=== PATIENT | male | born 1960 | race Caucasian/White ===

== ENCOUNTER → 2018-04-08 14:15 | Outpatient (CLI) | payer MEDICARE, MEDICAID, SELFPAY ==
--- NOTE | 2018-04-08 | OV.WND_ITS ---
Progress Note Details Patient Name: Xiang Barton Patient Number: [id number] PatientPatientDate: 04/08/2018 Clinician: Janeen Rico Clinician Cosigner: Lacie Márquez Physician / Figure Refinisher And Repairer: Pawel Schofield SUBJECTIVE Chief Complaint This information was obtained from the patient Ulcers on bilateral medial thighs. Allergies clindamycin (Severity: Mild, Reaction: bloating/loss of appetite) HPI This information was obtained from the patient 04/08/18. Seen by Dr. Schofield. The patient returns to our clinic with bilateral medial, proximal thigh pressure ulcers that he states have been present for about a week and were caused by compression wraps that were applied to treat his severe bilateral lymphedema. He 's not on antibiotics currently and he reports some pain at the ulcer sites. He also has diabetes which is historically well controlled and the ulcers are complicated by morbid obesity and his dependence upon a wheelchair since having a stroke many years ago. 05/15/[address] Schofield. The patient does not report drainage from the previously described right lower leg non-healing trauma wound. He also states he's only applying his Juxta-Lites every other day. 04/23/15 Seen by Lars Stevenson PA-C. The patient notes no drainage in his SNAP canister or tube. 04/16/15 Seen by Lars Stevenson PA-C. The patient reports drainage in the SNAP tube but not in the canister. Denies pain or changes in his lymphedema. 04/04/[address] Schofield. The patient reports increased drainage from the right lower leg non-healing trauma wound over the past few days. He does not report erythema, pain, or swelling. 03/26/[address] Schofield. The patient states there's been no drainage from the right lower leg wound since last week. 03/12/15 Seen by Lars Stevenson PA-C. The patient notes minimal drainage from his right leg wound. 03/05/15 Seen by Lars Stevenson PA-C. The patient has had no difficulty with his SNAP or wraps. 02/26/15 Seen by Lars Stevenson PA-C. The patient reports no fever or chills and little to no wound pain. 02/09/15 Seen by Lars Stevenson PA-C. The patient does not report fever, chills or increased wound pain or drainage. 02/13/15 Seen by Lars Stevenson PA-C today. The patient has been taking his clindamycin and has had not difficulty with his SNAP dressing or leg wrap. He does not report fever or chills. 02/09/15 Seen by Lars Stevenson PA-C. The patient does not report fever or chills, but is running a temp of 99.4 today in clinic. He has been off of his Clindamycin now for a few days. He does not report increased wound pain and he tolerated the SNAP well. 01/30/15 Seen by Lars Stevenson PA-C. The patient reports no fever, chills or increased wound pain or drainage. 01/25/15 The patient does not report pain or increased drainage associated with his right lower leg wound and he continues on clindamycin and Bactrim. He does not report fever or chills and tolerated the SNAP wound vac without difficulty. 01/22/15 The patient does not report pain or drainage associated with the right lower leg wound. He continues on clindamycin and does not report any adverse side effects. 01/11/15 The patient does not report increased drainage nor pain associated with the right lower leg wound. He continues taking azithromycin. 01/09/15 The patient does not report pain or increased drainage from the right lower leg wound and he started azithromycin this morning based on the very resistant coag negative Staph that was cultured from his wound at the last visit. He states his blood sugars remain well controlled and he's have no fever or constitutional symptoms. 01/04/15 The patient complains of some persistent pain along the right lower leg traumatic wound site but does not report significant drainage, fever, or chills. His injury occurred about 2 weeks ago and he states the original provider that closed the wound would like to leave removal of the joshua to our clinic. 12/28/14 The patient does not report drainage, pain, or erythema associated with the recent right lower leg traumatic wound. He also waiting to discuss his compression wraps with his PCP in regards to when they may be available to start wearing. 12/25/14 The patient has a new traumatic leg wound which he sustained in his house when he ran into a dressing stick. [place] were placed at [facility] ER. 12/18/14 The patient states his PCP has received all documentation to process the order for his compression wraps and he does not report any new problems regarding his bilateral lower extremity lymphedema. 12/11/14 The patient reports progress in regard to obtaining his lymphedema pumps. His lymphedema is reportedly unchanged today. 12/06/14 The patient reports some 'redness' over the dosum of the right foot but no associated pain. 11/28/14 The patient notes a decrease in the area of erythema on his left leg. His lymphedema is otherwise unchanged by his report. He continues to try and obtain lymphedema pumps with the help of social work. 11/20/14 The patient notes that the area of erythema on his left lymphedematous leg coincides exactly with where he rests his opposite leg when he sleeps. He wonders if the pressure from his other leg resting on this area is causing the erythema. 11/16/14 The patient reports the previously mentioned erythema over he left lower leg persists but has not necessarily worsened nor does he report pain or increased swelling at the site. 11/10/14 The patient reports erythema but not pain, increased swelling, or fever over the left anterior lower leg. He states he sleeps with his right leg overlying the mentioned area and feels the erythema may be from pressure. 11/03/14 Pt reports he intentionally held his BP meds today to help us be able to get a blood pressure reading. He takes Coreg and Lisinopril and reports that the provider who prescribes his medical marijuana also prescribes his blood pressure medications. Additionally he believes his weight increase is due to falling in love with deep dish pizza recently. 10/26/14 The patient reports he has been taking his wraps off a day before his appointment to have them re-wrapped. He believes this accounts for his increased leg circumference measurements. 10/19/14 The patient notes no change in his lymphedema however he reports improvement in his skin lichenification with application of baby oil to his skin. 10/11/14 The patient reports some erythema over the dorsum of his right foot as well as new pain in the 5th toe that started 2-3 days ago. Otherwise, we've been attempting to facilitate lymphedema pumps but have been unsuccessful with two suppliers thus far. 10/04/14 The patient continues to tolerate his compression wraps without complaints and is awaiting approval from a new lymphedema pump supplier. He was denied from the previous supplier in August 2014. 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 1996 at age 35;; chronic; bilateral lower extremities) Diverticulitis - 07/26/2014 Trauma wound - 12/25/2014 (deep; right lower leg requiring joshua) Surgical History This information was obtained from the patient Patient has a surgical history of: cholecystectomy June 2013 Colonoscopy (polyps removed) Complaints and Symptoms This information was obtained from the patient Patient complains of: General Notes: I have reviewed and concur with the Review of Systems and Past Family Social History documents completed by the clinician, I have reviewed and concur with the Wound Assessment document completed by the clinician Cardiovascular (Central): Dyspnea on Exertion, Orthopnea Cardiovascular (Central/Peripheral): Lower extremity (leg) swelling Genitourinary (): Urinary Incontinence Integumentary (Hair/Skin/Nails): Lesions Neurological: Loss of Protective Sensation, Weakness Prior Wound History: Bleeding, Drainage, Erythema, Pain Patient denies complaints or symptoms related to: Cardiovascular (Peripheral) Constitutional Symptoms (General Health): Chills, Fever Ear/Nose/Mouth/Throat: Hearing Loss / Aid Gastrointestinal (GI): Stomach/abdominal pain Integumentary (Hair/Skin/Nails): Open Sore Oncologic Prior Wound History: Malodor Respiratory: Oxygen Use, Shortness of Breath General Notes: Up to date. OBJECTIVE Constitutional BP elevated; Afebrile; Alert and in no distress. Well developed. Alert. Clean appearing.. Height/Length: 69 in (175.26 cm), Weight: 349.9 lbs (159.05 kgs), BMI: 51.7, Temperature: 98.4 ?F (36.89 ?C), Pulse: 90 bpm, Respiratory Rate: 18 breaths/min, Blood Pressure: 140/75 mmHg, Capillary Blood Glucose: 105 mg/dl, Pulse Oximetry: 95 %. Vital Signs Notes: Glucose per patient. Ears, Nose, Mouth, and Throat: No clinically significant hearing loss on informal examination. Respiratory: No respiratory distress. Even respirations and without use of accessory muscles.. Cardiovascular: 3+ bilateral lower leg edema. Gastrointestinal (GI): Obese. Nondistended.. Integumentary (Hair, Skin) Hyperkeratotic changes noted over the bilateral legs. Refer to appropriate clinician wound documentation for this visit; right and left medial thigh ulcers extend to subcut with bases partially covered with friable red granulation, remainder fibrin and some necrotic slough. Wound #3 Right, Medial Thigh is an acute Stage 3 Pressure Injury Pressure Ulcer and has received a status of Not Healed. Initial wound encounter measurements are 1.7cm length x 15.3cm width x 0.2cm depth, with an area of 26.01 sq cm and a volume of 5.202 cubic cm. No tunneling has been noted. No sinus tract has been noted. No undermining has been noted. There is a moderate amount of sero-sanguineous drainage noted which has no odor. The patient reports a wound pain of level 8/10. The wound margin is irregular. Wound bed has No epithelialization, No eschar, Yes slough, Yes bright red, pink, firm granulation. The periwound skin moisture is normal. The periwound skin color is normal. The periwound skin exhibited: Induration. The periwound skin did not exhibit: Brawny Induration, Edema, Excoriation, Callus, Crepitus, Fluctuance, Friable, Rash. The temperature of the periwound skin is WNL. Periwound skin does not exhibit signs or symptoms of infection. Local Pulse is Normal. Wound #4 Left, Medial Thigh is an acute Stage 3 Pressure Injury Pressure Ulcer and has received a status of Not Healed. Initial wound encounter measurements are 1.4cm length x 3.4cm width x 0.2cm depth, with an area of 4.76 sq cm and a volume of 0.952 cubic cm. No tunneling has been noted. No sinus tract has been noted. No undermining has been noted. There is a moderate amount of sero-sanguineous drainage noted which has no odor. The patient reports a wound pain of level 8/10. The wound margin is irregular. Wound bed has No epithelialization, No eschar, Yes slough, Yes bright red, pink, firm granulation. The periwound skin moisture is normal. The periwound skin color is normal. The periwound skin exhibited: Induration. The periwound skin did not exhibit: Brawny Induration, Edema, Excoriation, Callus, Crepitus, Fluctuance, Friable, Rash. The temperature of the periwound skin is WNL. Periwound skin does not exhibit signs or symptoms of infection. Local Pulse is N/A. Neurological: Cranial nerves grossly intact with symmetric function normal by informal observation.. ASSESSMENT Active Problems ICD-10 (Encounter Diagnosis) L97.112 - Non-pressure chronic ulcer of right thigh with fat layer exposed (Encounter Diagnosis) L97.122 - Non-pressure chronic ulcer of left thigh with fat layer exposed (Encounter Diagnosis) L08.9 - Local infection of the skin and subcutaneous tissue, unspecified (Encounter Diagnosis) I89.0 - Lymphedema, not elsewhere classified (Encounter Diagnosis) E66.01 - Morbid (severe) obesity due to excess calories (Encounter Diagnosis) Z99.3 - Dependence on wheelchair PROCEDURES Wound #3 Wound #3 (Pressure Ulcer) is located on the right, medial thigh. A skin/ subcutaneous tissue level surgical debridement with a total area debrided of 26.01 sq cm was performed by Pawel Schofield MD. Subcutaneous was removed along with devitalized tissue: necrotic/ eschar and slough. The following instrument(s) were used: curette. Pain control was achieved using 4% Lido. A time out was not conducted prior to the start of the procedure. A minimal amount of bleeding was controlled with pressure. The procedure was tolerated well with a pain level of 4 throughout and a pain level of 3 following the procedure. Post Debridement Measurements: 1.7cm length x 15.3cm width x 0.3cm depth; with an area of 26.01 sq cm and a volume of 7.803 cubic cm; Additional Information Muscle fascia or bone removed and sent to pathology?: No PLAN Wound Orders: Wound #3 Right, Medial Thigh Anesthetic Topical Xylocaine to wound bed. - In clinic only. Cleanser Cleanse Wound: - Normal saline and gauze. May Shower. - Shower with dressings on, change dressing immediately after shower. Topical Treatments Antibiotic/Antimicrobial Ointment/Cream. - OTC Triple antibiotic ointment. Dressings Cover and secure with: - Foam cut to cover, secured in place with tegaderm film. Change Dressing: - Home Health: please change dressings on Mondays and Fridays. We will see patient on Wednesdays. Wound #4 Left, Medial Thigh Anesthetic Topical Xylocaine to wound bed. - In clinic only. Cleanser Cleanse Wound: - Normal saline and gauze. May Shower. - Shower with dressings on, change dressing immediately after shower. Topical Treatments Antibiotic/Antimicrobial Ointment/Cream. - OTC Triple antibiotic ointment. Dressings Cover and secure with: - Foam cut to cover, secured in place with tegaderm film. Change Dressing: - Home Health: please change dressings on Mondays and Fridays. We will see patient on Wednesdays. Additional Orders: Follow-Up Appointments Return Appointment: - - Thursday next week. Other information: If you develop fever, chills, increased pain, drainage, redness or swelling please call our office. If after hours, respond to the ER. Should you experience any significant changes in your wound(s) or have any questions regarding your home care instructions please contact the wound center @ [phone]. If after hours, contact your primary care physician or go to the hospital emergency room. Scribing Attestation I attest, as the nurse, that I scribed these orders for the physician. Laboratory: Bacteria identified in Wound by Culture - #3. General Notes: Will call with culture results if any oral antibiotics are needed. I've reviewed the clinician's documentation and agree with the evaluation and plan as written. In addition the patient's ulcers demonstrate evidence of non-viable devitalized tissue and they will continue to benefit from sharp debridement to help promote granulation and expedite healing. Also, I've taken a wound culture and will begin treatment with topical OTC antibiotic then consider an oral antibiotic pending the culture results. The compression wraps will need to be considerably lower than the ulcers and we'll adjust dressings to reduce shear and pressure while maintaining adequate hygiene. Electronic Signature(s) Signed By: Date: Pawel Schofield MD 04/08/2018 15:39:04 Entered By: Pawel Schofield on 04/08/2018 15:36:58
== END ==
PROVIDERS: Family Provider Family Medicine; PCP Family Medicine; Visit Provider Internal Medicine
DX: L97.112 Non-pressure chronic ulcer of right thigh with fat layer exposed (principal); L97.122 Non-pressure chronic ulcer of left thigh with fat layer exposed; L08.9 Local infection of the skin and subcutaneous tissue, unspecified; I89.0 Lymphedema, not elsewhere classified; E66.01 Morbid (severe) obesity due to excess calories; Z99.3 Dependence on wheelchair
CPT/HCPCS: 11042; 11045; 87070; 87075; 87077; 87147; 87186; 87205

== ENCOUNTER → 2018-04-14 14:25 | Outpatient (CLI) | payer MEDICARE, MEDICAID, SELFPAY ==
--- NOTE | 2018-04-14 | OV.WND_ITS ---
Progress Note Details Patient Name: Xiang Barton Patient Number: [id number] PatientPatientDate: 04/14/2018 Clinician: Janeen Rico Clinician Cosigner: Lisa Tineo Physician / Organ Teacher: Pawel Schofield SUBJECTIVE Chief Complaint This information was obtained from the patient Ulcers on bilateral medial thighs. Allergies clindamycin (Severity: Mild, Reaction: bloating/loss of appetite) HPI This information was obtained from the patient 04/14/18. Seen by Dr. Schofield. The patient continues to report pain associated with the chronic bilateral, proximal thigh pressure ulcers and he only started his Bactrim last night that's treating the recent Morganella positive wound culture. The patients morbidly obese and wheelchair dependent plus has diabetes all of which significantly complicate healing of the pressure ulcers. 04/08/18. Seen by Dr. Schofield. The patient returns to our clinic with bilateral medial, proximal thigh pressure ulcers that he states have been present for about a week and were caused by compression wraps that were applied to treat his severe bilateral lymphedema. He 's not on antibiotics currently and he reports some pain at the ulcer sites. He also has diabetes which is historically well controlled and the ulcers are complicated by morbid obesity and his dependence upon a wheelchair since having a stroke many years ago. 05/15/[address] Schofield. The patient does not report drainage from the previously described right lower leg non-healing trauma wound. He also states he's only applying his Juxta-Lites every other day. 04/23/15 Seen by Lars Stevenson PA-C. The patient notes no drainage in his SNAP canister or tube. 04/16/15 Seen by Lars Stevenson PA-C. The patient reports drainage in the SNAP tube but not in the canister. Denies pain or changes in his lymphedema. 04/04/[address] Schofield. The patient reports increased drainage from the right lower leg non-healing trauma wound over the past few days. He does not report erythema, pain, or swelling. 03/26/[address] Schofield. The patient states there's been no drainage from the right lower leg wound since last week. 03/12/15 Seen by Lars Stevenson PA-C. The patient notes minimal drainage from his right leg wound. 03/05/15 Seen by Lars Stevenson PA-C. The patient has had no difficulty with his SNAP or wraps. 02/26/15 Seen by Lars Stevenson PA-C. The patient reports no fever or chills and little to no wound pain. 02/09/15 Seen by Lars Stevenson PA-C. The patient does not report fever, chills or increased wound pain or drainage. 02/13/15 Seen by Lars Stevenson PA-C today. The patient has been taking his clindamycin and has had not difficulty with his SNAP dressing or leg wrap. He does not report fever or chills. 02/09/15 Seen by Lars Stevenson PA-C. The patient does not report fever or chills, but is running a temp of 99.4 today in clinic. He has been off of his Clindamycin now for a few days. He does not report increased wound pain and he tolerated the SNAP well. 01/30/15 Seen by Lars Stevenson PA-C. The patient reports no fever, chills or increased wound pain or drainage. 01/25/15 The patient does not report pain or increased drainage associated with his right lower leg wound and he continues on clindamycin and Bactrim. He does not report fever or chills and tolerated the SNAP wound vac without difficulty. 01/22/15 The patient does not report pain or drainage associated with the right lower leg wound. He continues on clindamycin and does not report any adverse side effects. 01/11/15 The patient does not report increased drainage nor pain associated with the right lower leg wound. He continues taking azithromycin. 01/09/15 The patient does not report pain or increased drainage from the right lower leg wound and he started azithromycin this morning based on the very resistant coag negative Staph that was cultured from his wound at the last visit. He states his blood sugars remain well controlled and he's have no fever or constitutional symptoms. 01/04/15 The patient complains of some persistent pain along the right lower leg traumatic wound site but does not report significant drainage, fever, or chills. His injury occurred about 2 weeks ago and he states the original provider that closed the wound would like to leave removal of the joshua to our clinic. 12/28/14 The patient does not report drainage, pain, or erythema associated with the recent right lower leg traumatic wound. He also waiting to discuss his compression wraps with his PCP in regards to when they may be available to start wearing. 12/25/14 The patient has a new traumatic leg wound which he sustained in his house when he ran into a dressing stick. [place] were placed at [facility]. 12/18/14 The patient states his PCP has received all documentation to process the order for his compression wraps and he does not report any new problems regarding his bilateral lower extremity lymphedema. 12/11/14 The patient reports progress in regard to obtaining his lymphedema pumps. His lymphedema is reportedly unchanged today. 12/06/14 The patient reports some 'redness' over the dosum of the right foot but no associated pain. 11/28/14 The patient notes a decrease in the area of erythema on his left leg. His lymphedema is otherwise unchanged by his report. He continues to try and obtain lymphedema pumps with the help of social work. 11/20/14 The patient notes that the area of erythema on his left lymphedematous leg coincides exactly with where he rests his opposite leg when he sleeps. He wonders if the pressure from his other leg resting on this area is causing the erythema. 11/16/14 The patient reports the previously mentioned erythema over he left lower leg persists but has not necessarily worsened nor does he report pain or increased swelling at the site. 11/10/14 The patient reports erythema but not pain, increased swelling, or fever over the left anterior lower leg. He states he sleeps with his right leg overlying the mentioned area and feels the erythema may be from pressure. 11/03/14 Pt reports he intentionally held his BP meds today to help us be able to get a blood pressure reading. He takes Coreg and Lisinopril and reports that the provider who prescribes his medical marijuana also prescribes his blood pressure medications. Additionally he believes his weight increase is due to falling in love with deep dish pizza recently. 10/26/14 The patient reports he has been taking his wraps off a day before his appointment to have them re-wrapped. He believes this accounts for his increased leg circumference measurements. 10/19/14 The patient notes no change in his lymphedema however he reports improvement in his skin lichenification with application of baby oil to his skin. 10/11/14 The patient reports some erythema over the dorsum of his right foot as well as new pain in the 5th toe that started 2-3 days ago. Otherwise, we've been attempting to facilitate lymphedema pumps but have been unsuccessful with two suppliers thus far. 10/04/14 The patient continues to tolerate his compression wraps without complaints and is awaiting approval from a new lymphedema pump supplier. He was denied from the previous supplier in August 2014. 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 1996 at age 35;; chronic; bilateral lower extremities) Diverticulitis - 07/26/2014 Trauma wound - 12/25/2014 (deep; right lower leg requiring joshua) Complaints and Symptoms This information was obtained from the patient Patient complains of: General Notes: I have reviewed and concur with the Review of Systems and Past Family Social History documents completed by the clinician, I have reviewed and concur with the Wound Assessment document completed by the clinician Cardiovascular (Central): Dyspnea on Exertion, Orthopnea Cardiovascular (Central/Peripheral): Lower extremity (leg) swelling Genitourinary (): Urinary Incontinence Integumentary (Hair/Skin/Nails): Lesions Neurological: Loss of Protective Sensation, Weakness Prior Wound History: Bleeding, Drainage, Erythema, Pain Patient denies complaints or symptoms related to: Cardiovascular (Peripheral) Constitutional Symptoms (General Health): Chills, Fever Ear/Nose/Mouth/Throat: Hearing Loss / Aid Gastrointestinal (GI): Stomach/abdominal pain Integumentary (Hair/Skin/Nails): Open Sore Oncologic Prior Wound History: Malodor Respiratory: Oxygen Use, Shortness of Breath OBJECTIVE Constitutional Vital signs reviewed and noted. Well developed. Alert. Clean appearing.. Height/ Length: 69 in (175.26 cm), Weight: 349.9 lbs (159.05 kgs), BMI: 51.7, Temperature: 98.1 ?F ( 36.72 ?C), Pulse: 72 bpm, Respiratory Rate: 18 breaths/min, Blood Pressure: 110/66 mmHg, Capillary Blood Glucose: 150 mg/dl, Pulse Oximetry: 97 %. Vital Signs Notes: Glucose per patient. Ears, Nose, Mouth, and Throat: No clinically significant hearing loss on informal examination. Respiratory: No respiratory distress. Even respirations and without use of accessory muscles.. Cardiovascular: 3+ bilateral lower leg edema. Gastrointestinal (GI): Obese. Nondistended.. Integumentary (Hair, Skin) Hyperkeratotic changes noted over the bilateral medial thighs. Refer to appropriate clinician wound documentation for this visit; right and left medial, proximal thigh ulcers extend to subcut with bases partially covered with pink granulation, remainder fibrin and slough. Wound #3 Right, Medial Thigh is an acute Stage 3 Pressure Injury Pressure Ulcer and has received a status of Not Healed. Subsequent wound encounter measurements are 2cm length x 11cm width x 0.2cm depth, with an area of 22 sq cm and a volume of 4.4 cubic cm. No tunneling has been noted. No sinus tract has been noted. No undermining has been noted. There is a large amount of sero-sanguineous drainage noted which has a strong odor. The patient reports a wound pain of level 8/10. The wound margin is irregular. Wound bed has No epithelialization, No eschar, Yes slough, Yes bright red, pink, firm granulation. The periwound skin moisture is normal. The periwound skin color is normal. The periwound skin exhibited: Induration. The periwound skin did not exhibit: Brawny Induration, Edema, Excoriation, Callus, Crepitus, Fluctuance, Friable, Rash. The temperature of the periwound skin is WNL. Periwound skin does not exhibit signs or symptoms of infection. Local Pulse is Normal. Wound #4 Left, Medial Thigh is an acute Stage 3 Pressure Injury Pressure Ulcer and has received a status of Not Healed. Subsequent wound encounter measurements are 1.3cm length x 2.5cm width x 0.2cm depth, with an area of 3.25 sq cm and a volume of 0.65 cubic cm. No tunneling has been noted. No sinus tract has been noted. No undermining has been noted. There is a moderate amount of sero-sanguineous drainage noted which has no odor. The patient reports a wound pain of level 8/10. The wound margin is irregular. Wound bed has No epithelialization, No eschar, Yes slough, Yes bright red, pink, firm granulation. The periwound skin moisture is normal. The periwound skin color is normal. The periwound skin exhibited: Induration. The periwound skin did not exhibit: Brawny Induration, Edema, Excoriation, Callus, Crepitus, Fluctuance, Friable, Rash. The temperature of the periwound skin is WNL. Periwound skin does not exhibit signs or symptoms of infection. Local Pulse is N/A. Neurological: Cranial nerves grossly intact with symmetric function normal by informal observation.. ASSESSMENT Active Problems ICD-10 (Encounter Diagnosis) L97.112 - Non-pressure chronic ulcer of right thigh with fat layer exposed (Encounter Diagnosis) L97.122 - Non-pressure chronic ulcer of left thigh with fat layer exposed (Encounter Diagnosis) I89.0 - Lymphedema, not elsewhere classified (Encounter Diagnosis) E66.01 - Morbid (severe) obesity due to excess calories (Encounter Diagnosis) Z99.3 - Dependence on wheelchair (Encounter Diagnosis) L08.89 - Other specified local infections of the skin and subcutaneous tissue PROCEDURES Wound #3 Wound #3 (Pressure Ulcer) is located on the right, medial thigh. A skin/ subcutaneous tissue level surgical debridement with a total area debrided of 22 sq cm was performed by Pawel Schofield MD. Subcutaneous was removed along with devitalized tissue: exudate and slough. The following instrument(s) were used: curette. Pain control was achieved using EMLA lidocaine/prilocaine 2.5%/2.5%. A time out was conducted prior to the start of the procedure. A minimal amount of bleeding was controlled with pressure. The procedure was tolerated well with a pain level of 0 throughout and a pain level of 0 following the procedure. Post Debridement Measurements: 2cm length x 11cm width x 0.3cm depth; with an area of 22 sq cm and a volume of 6.6 cubic cm; Wound #4 Wound #4 (Pressure Ulcer) is located on the left, medial thigh. A skin/ subcutaneous tissue level surgical debridement with a total area debrided of 3.25 sq cm was performed by Pawel Schofield MD. Subcutaneous was removed along with devitalized tissue: exudate and slough. The following instrument(s) were used: curette. Pain control was achieved using EMLA lidocaine/prilocaine 2.5%/2.5%. A time out was conducted prior to the start of the procedure. A minimal amount of bleeding was controlled with pressure. The procedure was tolerated well with a pain level of 0 throughout and a pain level of 0 following the procedure. Post Debridement Measurements: 1.3cm length x 2.5cm width x 0.3cm depth; with an area of 3.25 sq cm and a volume of 0.975 cubic cm; Additional Information Muscle fascia or bone removed and sent to pathology?: No Muscle fascia or bone removed and sent to pathology?: No PLAN Wound Orders: Wound #3 Right, Medial Thigh Anesthetic Topical Xylocaine to wound bed. - In clinic only. Cleanser Cleanse Wound: - Normal saline and gauze. May Shower. - Shower with dressings on, change dressing immediately after shower. Topical Treatments Antibiotic/Antimicrobial Ointment/Cream. - OTC Triple antibiotic ointment. Dressings Cover and secure with: - Superabsorbent pad to cover, secured in place with tegaderm film. InterDry to groin. Change Dressing: - Home Health: please change dressings on Mondays and Fridays. We will see patient on Wednesdays. Wound #4 Left, Medial Thigh Anesthetic Topical Xylocaine to wound bed. - In clinic only. Cleanser Cleanse Wound: - Normal saline and gauze. May Shower. - Shower with dressings on, change dressing immediately after shower. Topical Treatments Antibiotic/Antimicrobial Ointment/Cream. - OTC Triple antibiotic ointment. Dressings Cover and secure with: - Superabsorbent pad to cover, secured in place with tegaderm film. InterDry to groin. Change Dressing: - Home Health: please change dressings on Mondays and Fridays. We will see patient on Wednesdays. Additional Orders: Follow-Up Appointments Return Appointment: - - One week. Other information: If you develop fever, chills, increased pain, drainage, redness or swelling please call our office. If after hours, respond to the ER. Should you experience any significant changes in your wound(s) or have any questions regarding your home care instructions please contact the wound center @ [phone]. If after hours, contact your primary care physician or go to the hospital emergency room. Scribing Attestation I attest, as the nurse, that I scribed these orders for the physician. General Notes: Please continue Bactrim as prescribed. I've reviewed the clinician's documentation and agree with the evaluation and plan as written. In addition the patient's ulcers demonstrate evidence of non-viable devitalized tissue and they will continue to benefit from sharp debridement to help promote granulation and expedite healing. Also, the patient continue on Bactrim as prescribed. Electronic Signature(s) Signed By: Date: Pawel Schofield MD 04/15/2018 07:19:13 Entered By: Pawel Schofield on 04/15/2018 06:50:04
== END ==
PROVIDERS: Family Provider Family Medicine; PCP Family Medicine; Visit Provider Internal Medicine
DX: L89.893 Pressure ulcer of other site, stage 3 (principal); L08.89 Other specified local infections of the skin and subcutaneous tissue; E66.01 Morbid (severe) obesity due to excess calories; Z99.3 Dependence on wheelchair; E11.628 Type 2 diabetes mellitus with other skin complications
CPT/HCPCS: 11042; 11045

== ENCOUNTER → 2018-04-21 14:13 | Outpatient (CLI) | payer MEDICARE, MEDICAID, SELFPAY | PROVIDERS: Family Provider Family Medicine; PCP Family Medicine; Visit Provider Internal Medicine | DX: L89.893 Pressure ulcer of other site, stage 3 (principal) | CPT/HCPCS: 11042 ==

== ENCOUNTER → 2018-04-28 13:23 | Outpatient (CLI) | payer MEDICARE, MEDICAID, SELFPAY ==
--- NOTE | 2018-04-28 | OV.WND_ITS ---
Progress Note Details Patient Name: Xiang Barton Patient Number: [id number] PatientPatientDate: 04/28/2018 Clinician: Janeen Rico Clinician Cosigner: Leticia Lux Physician / Park Landscape Architect: Pawel Schofield SUBJECTIVE Chief Complaint This information was obtained from the patient Ulcers on bilateral medial thighs. Allergies clindamycin (Severity: Mild, Reaction: bloating/loss of appetite) HPI This information was obtained from the patient 04/28/18. Seen by Dr. Schofield. The patient does not report pain or significant drainage associated with the chronic bilateral, proximal thigh pressure ulcers since his last visit. He also now reports a left elbow ulcer that's been draining but is not painful. He wears a sling on the left arm at all times to elevate the arm which helps in managing lymphedema brought on by a stroke he had many years ago. 04/21/18. Seen by Dr. Schofield. The patient does not report pain or significant drainage associated with the chronic bilateral, proximal thigh pressure ulcers since his last visit and he's not off of antibiotics. 04/14/18. Seen by Dr. Schofield. The patient continues to report pain associated with the chronic bilateral, proximal thigh pressure ulcers and he only started his Bactrim last night that's treating the recent Morganella positive wound culture. The patients morbidly obese and wheelchair dependent plus has diabetes all of which significantly complicate healing of the pressure ulcers. 04/08/18. Seen by Dr. Schofield. The patient returns to our clinic with bilateral medial, proximal thigh pressure ulcers that he states have been present for about a week and were caused by compression wraps that were applied to treat his severe bilateral lymphedema. He 's not on antibiotics currently and he reports some pain at the ulcer sites. He also has diabetes which is historically well controlled and the ulcers are complicated by morbid obesity and his dependence upon a wheelchair since having a stroke many years ago. 05/15/[address] Schofield. The patient does not report drainage from the previously described right lower leg non-healing trauma wound. He also states he's only applying his Juxta-Lites every other day. 04/23/15 Seen by Lars Stevenson PA-C. The patient notes no drainage in his SNAP canister or tube. 04/16/15 Seen by Lars Stevenson PA-C. The patient reports drainage in the SNAP tube but not in the canister. Denies pain or changes in his lymphedema. 04/04/[address] Schofield. The patient reports increased drainage from the right lower leg non-healing trauma wound over the past few days. He does not report erythema, pain, or swelling. 03/26/[address] Schofield. The patient states there's been no drainage from the right lower leg wound since last week. 03/12/15 Seen by Lars Stevenson PA-C. The patient notes minimal drainage from his right leg wound. 03/05/15 Seen by Lars Stevenson PA-C. The patient has had no difficulty with his SNAP or wraps. 02/26/15 Seen by Lars Stevenson PA-C. The patient reports no fever or chills and little to no wound pain. 02/09/15 Seen by Lars Stevenson PA-C. The patient does not report fever, chills or increased wound pain or drainage. 02/13/15 Seen by Lars Stevenson PA-C today. The patient has been taking his clindamycin and has had not difficulty with his SNAP dressing or leg wrap. He does not report fever or chills. 02/09/15 Seen by Lars Stevenson PA-C. The patient does not report fever or chills, but is running a temp of 99.4 today in clinic. He has been off of his Clindamycin now for a few days. He does not report increased wound pain and he tolerated the SNAP well. 01/30/15 Seen by Lars Stevenson PA-C. The patient reports no fever, chills or increased wound pain or drainage. 01/25/15 The patient does not report pain or increased drainage associated with his right lower leg wound and he continues on clindamycin and Bactrim. He does not report fever or chills and tolerated the SNAP wound vac without difficulty. 01/22/15 The patient does not report pain or drainage associated with the right lower leg wound. He continues on clindamycin and does not report any adverse side effects. 01/11/15 The patient does not report increased drainage nor pain associated with the right lower leg wound. He continues taking azithromycin. 01/09/15 The patient does not report pain or increased drainage from the right lower leg wound and he started azithromycin this morning based on the very resistant coag negative Staph that was cultured from his wound at the last visit. He states his blood sugars remain well controlled and he's have no fever or constitutional symptoms. 01/04/15 The patient complains of some persistent pain along the right lower leg traumatic wound site but does not report significant drainage, fever, or chills. His injury occurred about 2 weeks ago and he states the original provider that closed the wound would like to leave removal of the joshua to our clinic. 12/28/14 The patient does not report drainage, pain, or erythema associated with the recent right lower leg traumatic wound. He also waiting to discuss his compression wraps with his PCP in regards to when they may be available to start wearing. 12/25/14 The patient has a new traumatic leg wound which he sustained in his house when he ran into a dressing stick. [place] were placed at [facility]. 12/18/14 The patient states his PCP has received all documentation to process the order for his compression wraps and he does not report any new problems regarding his bilateral lower extremity lymphedema. 12/11/14 The patient reports progress in regard to obtaining his lymphedema pumps. His lymphedema is reportedly unchanged today. 12/06/14 The patient reports some 'redness' over the dosum of the right foot but no associated pain. 11/28/14 The patient notes a decrease in the area of erythema on his left leg. His lymphedema is otherwise unchanged by his report. He continues to try and obtain lymphedema pumps with the help of social work. 11/20/14 The patient notes that the area of erythema on his left lymphedematous leg coincides exactly with where he rests his opposite leg when he sleeps. He wonders if the pressure from his other leg resting on this area is causing the erythema. 11/16/14 The patient reports the previously mentioned erythema over he left lower leg persists but has not necessarily worsened nor does he report pain or increased swelling at the site. 11/10/14 The patient reports erythema but not pain, increased swelling, or fever over the left anterior lower leg. He states he sleeps with his right leg overlying the mentioned area and feels the erythema may be from pressure. 11/03/14 Pt reports he intentionally held his BP meds today to help us be able to get a blood pressure reading. He takes Coreg and Lisinopril and reports that the provider who prescribes his medical marijuana also prescribes his blood pressure medications. Additionally he believes his weight increase is due to falling in love with deep dish pizza recently. 10/26/14 The patient reports he has been taking his wraps off a day before his appointment to have them re-wrapped. He believes this accounts for his increased leg circumference measurements. 10/19/14 The patient notes no change in his lymphedema however he reports improvement in his skin lichenification with application of baby oil to his skin. 10/11/14 The patient reports some erythema over the dorsum of his right foot as well as new pain in the 5th toe that started 2-3 days ago. Otherwise, we've been attempting to facilitate lymphedema pumps but have been unsuccessful with two suppliers thus far. 10/04/14 The patient continues to tolerate his compression wraps without complaints and is awaiting approval from a new lymphedema pump supplier. He was denied from the previous supplier in August 2014. 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 1996 at age 35;; chronic; bilateral lower extremities) Diverticulitis - 07/26/2014 Trauma wound - 12/25/2014 (deep; right lower leg requiring joshua) Complaints and Symptoms This information was obtained from the patient Patient complains of: General Notes: I have reviewed and concur with the Review of Systems and Past Family Social History documents completed by the clinician, I have reviewed and concur with the Wound Assessment document completed by the clinician Cardiovascular (Central): Dyspnea on Exertion, Orthopnea Cardiovascular (Central/Peripheral): Lower extremity (leg) swelling Genitourinary (): Urinary Incontinence Integumentary (Hair/Skin/Nails): Lesions Neurological: Loss of Protective Sensation, Weakness Prior Wound History: Bleeding, Drainage, Erythema, Pain Patient denies complaints or symptoms related to: Cardiovascular (Peripheral) Constitutional Symptoms (General Health): Chills, Fever Ear/Nose/Mouth/Throat: Hearing Loss / Aid Gastrointestinal (GI): Stomach/abdominal pain Integumentary (Hair/Skin/Nails): Open Sore Oncologic Prior Wound History: Malodor Respiratory: Oxygen Use, Shortness of Breath OBJECTIVE Constitutional BP elevated; Afebrile; Alert and in no distress. Well developed. Alert. Clean appearing.. Height/Length: 69 in (175.26 cm), Weight: 349.9 lbs (159.05 kgs), BMI: 51.7, Temperature: 98.3 ?F (36.83 ?C), Pulse: 80 bpm, Respiratory Rate: 18 breaths/min, Blood Pressure: 147/87 mmHg, Capillary Blood Glucose: 120 mg/dl, Pulse Oximetry: 98 %. Vital Signs Notes: Glucose per patient. Respiratory: No respiratory distress. Even respirations and without use of accessory muscles.. Cardiovascular: 3+ bilateral lower leg edema. Gastrointestinal (GI): Obese. Nondistended.. Integumentary (Hair, Skin) No periwound erythema, warmth, or significant drainage. No periwound rashes appreciated or noted otherwise.. Refer to appropriate clinician wound documentation for this visit; right and left medial, proximal thigh ulcers extend to subcut with bases partially covered with pink granulation, remainder fibrin and slough; both smaller than on previous review; left elbow ulcer extends to subcut with base covered with pink granulation, slough, and adherent dry yellow drainage. Wound #3 Right, Medial Thigh is an acute Stage 3 Pressure Injury Pressure Ulcer and has received a status of Not Healed. Subsequent wound encounter measurements are 2cm length x 9cm width x 0.1cm depth, with an area of 18 sq cm and a volume of 1.8 cubic cm. There is a large amount of sero-sanguineous drainage noted which has no odor. The patient reports a wound pain of level 8/10. The wound margin is irregular. Wound bed has Yes epithelialization, No eschar, Yes slough, Yes bright red, pink, firm granulation. The periwound skin moisture is normal. The periwound skin color is normal. The periwound skin exhibited: Induration. The periwound skin did not exhibit: Brawny Induration, Edema, Excoriation, Callus, Crepitus, Fluctuance, Friable, Rash. The temperature of the periwound skin is WNL. Periwound skin does not exhibit signs or symptoms of infection. Local Pulse is Normal. General Notes: Two epithelial bridges, both measuring about 1.5-2.0cm. Wound #4 Left, Medial Thigh is an acute Stage 3 Pressure Injury Pressure Ulcer and has received a status of Not Healed. Subsequent wound encounter measurements are 0.6cm length x 0.3cm width x 0.1cm depth, with an area of 0.18 sq cm and a volume of 0.018 cubic cm. No tunneling has been noted. No sinus tract has been noted. No undermining has been noted. There is a moderate amount of sero-sanguineous drainage noted which has no odor. The patient reports a wound pain of level 8/10. The wound margin is irregular. Wound bed has Yes epithelialization, No eschar, Yes slough, Yes pink, firm granulation. The periwound skin moisture is normal. The periwound skin color is normal. The periwound skin exhibited: Edema. The periwound skin did not exhibit: Brawny Induration, Excoriation, Induration, Callus, Crepitus, Fluctuance, Friable, Rash. The temperature of the periwound skin is WNL. Periwound skin does not exhibit signs or symptoms of infection. Local Pulse is N/A. Wound #5 Left Elbow is an acute Unstageable Pressure Injury Obscured full- thickness skin and tissue loss Pressure Ulcer and has received a status of Not Healed. Initial wound encounter measurements are 1.4cm length x 1cm width x 0.2cm depth, with an area of 1.4 sq cm and a volume of 0.28 cubic cm. No tunneling has been noted. No sinus tract has been noted. No undermining has been noted. There is a small amount of purulent drainage noted which has no odor. The patient reports a wound pain of level 0/10. The wound margin is attached. Wound bed has No epithelialization, Yes eschar, Yes slough, No granulation. The periwound skin texture is normal. The periwound skin moisture is normal. The periwound skin color is normal. The temperature of the periwound skin is WNL. Periwound skin does not exhibit signs or symptoms of infection. Local Pulse is Palpable. Neurological: Cranial nerves grossly intact with symmetric function normal by informal observation.. ASSESSMENT Active Problems ICD-10 (Encounter Diagnosis) L97.112 - Non-pressure chronic ulcer of right thigh with fat layer exposed (Encounter Diagnosis) L97.122 - Non-pressure chronic ulcer of left thigh with fat layer exposed (Encounter Diagnosis) L89.023 - Pressure ulcer of left elbow, stage 3 (Encounter Diagnosis) I89.0 - Lymphedema, not elsewhere classified PROCEDURES Wound #3 Wound #3 (Pressure Ulcer) is located on the right, medial thigh. A skin/ subcutaneous tissue level surgical debridement with a total area debrided of 18 sq cm was performed by Pawel Schofield MD. Subcutaneous was removed along with devitalized tissue: exudate and slough. The following instrument(s) were used: curette. Pain control was achieved using 4% Lido. A time out was conducted prior to the start of the procedure. A moderate amount of bleeding was controlled with pressure. The procedure was tolerated well with a pain level of 0 throughout and a pain level of 0 following the procedure. Post Debridement Measurements: 2cm length x 9cm width x 0.2cm depth; with an area of 18 sq cm and a volume of 3.6 cubic cm; Wound #4 Wound #4 (Pressure Ulcer) is located on the left, medial thigh. A skin/ subcutaneous tissue level surgical debridement with a total area debrided of 0.18 sq cm was performed by Pawel Schofield MD. Subcutaneous was removed along with devitalized tissue: exudate and slough. The following instrument(s) were used: curette. Pain control was achieved using 4% Lido. A time out was conducted prior to the start of the procedure. A moderate amount of bleeding was controlled with pressure. The procedure was tolerated well with a pain level of 0 throughout and a pain level of 0 following the procedure. Post Debridement Measurements: 0.6cm length x 0.3cm width x 0.2cm depth; with an area of 0.18 sq cm and a volume of 0.036 cubic cm; Wound #5 Wound #5 (Pressure Ulcer) is located on the left elbow. A skin/subcutaneous tissue level surgical debridement with a total area debrided of 1.3 sq cm was performed by Pawel Schofield MD. Subcutaneous was removed along with devitalized tissue: exudate and slough. The following instrument(s) were used: curette. Pain control was achieved using 4% Lido. A time out was conducted prior to the start of the procedure. A moderate amount of bleeding was controlled with pressure. The procedure was tolerated well with a pain level of 0 throughout and a pain level of 0 following the procedure. Post Debridement Measurements: 1.3cm length x 1cm width x 0.3cm depth; with an area of 1.3 sq cm and a volume of 0.39 cubic cm; Additional Information Muscle fascia or bone removed and sent to pathology?: No Muscle fascia or bone removed and sent to pathology?: No Muscle fascia or bone removed and sent to pathology?: No PLAN Wound Orders: Wound #3 Right, Medial Thigh Anesthetic Topical Xylocaine to wound bed. - In clinic only. Cleanser Cleanse Wound: - Normal saline and gauze. May Shower. - Shower with dressings on, change dressing immediately after shower. Topical Treatments Antibiotic/Antimicrobial Ointment/Cream. - OTC Triple antibiotic ointment. Dressings Cover and secure with: - Telfa secured with tape, or equivalent. Change Dressing: - Home Health: please change dressings on Mondays and Fridays. We will see patient on Wednesdays. Wound #4 Left, Medial Thigh Anesthetic Topical Xylocaine to wound bed. - In clinic only. Cleanser Cleanse Wound: - Normal saline and gauze. May Shower. - Shower with dressings on, change dressing immediately after shower. Topical Treatments Antibiotic/Antimicrobial Ointment/Cream. - OTC Triple antibiotic ointment. Dressings Cover and secure with: - Telfa secured with tape, or equivalent. Change Dressing: - Home Health: please change dressings on Mondays and Fridays. We will see patient on Wednesdays. Wound #5 Left Elbow Anesthetic Topical Xylocaine to wound bed. - In clinic only. Cleanser Cleanse Wound: - Normal saline and gauze. May Shower. - Shower with dressings on, change dressing immediately after shower. Topical Treatments Antibiotic/Antimicrobial Ointment/Cream. - OTC Triple antibiotic ointment. Dressings Cover and secure with: - Bordered foam. Change Dressing: - Home Health: please change dressings on Mondays and Fridays. We will see patient on Wednesdays. Additional Orders: Off-Loading Keep weight off: - Left elbow. Please do not use arm sling. Follow-Up Appointments Return Appointment: - - One week. Other information: If you develop fever, chills, increased pain, drainage, redness or swelling please call our office. If after hours, respond to the ER. Should you experience any significant changes in your wound(s) or have any questions regarding your home care instructions please contact the wound center @ [phone]. If after hours, contact your primary care physician or go to the hospital emergency room. Scribing Attestation I attest, as the nurse, that I scribed these orders for the physician. Laboratory: Culture Wound - Left elbow. Will call with culture results if any oral antibiotics are needed. I've reviewed the clinician's documentation and agree with the evaluation and plan as written. In addition the patient's ulcers demonstrate evidence of non-viable devitalized tissue and they will continue to benefit from sharp debridement to help promote granulation and expedite healing. Electronic Signature(s) Signed By: Date: Pawel Schofield MD 04/29/2018 13:47:32 Entered By: Pawel Schofield on 04/29/2018 11:08:15
== END ==
PROVIDERS: Family Provider Family Medicine; PCP Family Medicine; Visit Provider Internal Medicine
DX: L89.023 Pressure ulcer of left elbow, stage 3 (principal); L89.893 Pressure ulcer of other site, stage 3
CPT/HCPCS: 11042; 87070; 87075; 87077; 87147; 87186; 87205

== ENCOUNTER → 2018-05-05 13:53 | Outpatient (CLI) | payer MEDICARE, MEDICAID, SELFPAY ==
--- NOTE | 2018-05-05 | OV.WND_ITS ---
Progress Note Details Patient Name: Xiang Barton Patient Number: [id number] PatientPatientDate: 05/05/2018 Clinician: Leticia Lux Clinician Cosigner: Lisa Tineo Physician / Assistant Gm Of Content & Delivery: Pawel Schofield SUBJECTIVE Chief Complaint This information was obtained from the patient Ulcers on bilateral medial thighs. Allergies clindamycin (Severity: Mild, Reaction: bloating/loss of appetite) HPI This information was obtained from the patient 05/05/18. Seen by Dr. Schofield. The patient does not report pain or significant drainage associated with the chronic bilateral, proximal thigh pressure ulcers since his last visit. His left elbow ulcer is also reportedly healed today. 04/28/18. Seen by Dr. Schofield. The patient does not report pain or significant drainage associated with the chronic bilateral, proximal thigh pressure ulcers since his last visit. He also now reports a left elbow ulcer that's been draining but is not painful. He wears a sling on the left arm at all times to elevate the arm which helps in managing lymphedema brought on by a stroke he had many years ago. 04/21/18. Seen by Dr. Schofield. The patient does not report pain or significant drainage associated with the chronic bilateral, proximal thigh pressure ulcers since his last visit and he's not off of antibiotics. 04/14/18. Seen by Dr. Schofield. The patient continues to report pain associated with the chronic bilateral, proximal thigh pressure ulcers and he only started his Bactrim last night that's treating the recent Morganella positive wound culture. The patients morbidly obese and wheelchair dependent plus has diabetes all of which significantly complicate healing of the pressure ulcers. 04/08/18. Seen by Dr. Schofield. The patient returns to our clinic with bilateral medial, proximal thigh pressure ulcers that he states have been present for about a week and were caused by compression wraps that were applied to treat his severe bilateral lymphedema. He 's not on antibiotics currently and he reports some pain at the ulcer sites. He also has diabetes which is historically well controlled and the ulcers are complicated by morbid obesity and his dependence upon a wheelchair since having a stroke many years ago. 05/15/[address] Schofield. The patient does not report drainage from the previously described right lower leg non-healing trauma wound. He also states he's only applying his Juxta-Lites every other day. 04/23/15 Seen by Lars Stevenson PA-C. The patient notes no drainage in his SNAP canister or tube. 04/16/15 Seen by Lars Stevenson PA-C. The patient reports drainage in the SNAP tube but not in the canister. Denies pain or changes in his lymphedema. 04/04/[address] Schofield. The patient reports increased drainage from the right lower leg non-healing trauma wound over the past few days. He does not report erythema, pain, or swelling. 03/26/[address] Schofield. The patient states there's been no drainage from the right lower leg wound since last week. 03/12/15 Seen by Lars Stevenson PA-C. The patient notes minimal drainage from his right leg wound. 03/05/15 Seen by Lars Stevenson PA-C. The patient has had no difficulty with his SNAP or wraps. 02/26/15 Seen by Lars Stevenson PA-C. The patient reports no fever or chills and little to no wound pain. 02/09/15 Seen by Lars Stevenson PA-C. The patient does not report fever, chills or increased wound pain or drainage. 02/13/15 Seen by Lars Stevenson PA-C today. The patient has been taking his clindamycin and has had not difficulty with his SNAP dressing or leg wrap. He does not report fever or chills. 02/09/15 Seen by Lars Stevenson PA-C. The patient does not report fever or chills, but is running a temp of 99.4 today in clinic. He has been off of his Clindamycin now for a few days. He does not report increased wound pain and he tolerated the SNAP well. 01/30/15 Seen by Lars Stevenson PA-C. The patient reports no fever, chills or increased wound pain or drainage. 01/25/15 The patient does not report pain or increased drainage associated with his right lower leg wound and he continues on clindamycin and Bactrim. He does not report fever or chills and tolerated the SNAP wound vac without difficulty. 01/22/15 The patient does not report pain or drainage associated with the right lower leg wound. He continues on clindamycin and does not report any adverse side effects. 01/11/15 The patient does not report increased drainage nor pain associated with the right lower leg wound. He continues taking azithromycin. 01/09/15 The patient does not report pain or increased drainage from the right lower leg wound and he started azithromycin this morning based on the very resistant coag negative Staph that was cultured from his wound at the last visit. He states his blood sugars remain well controlled and he's have no fever or constitutional symptoms. 01/04/15 The patient complains of some persistent pain along the right lower leg traumatic wound site but does not report significant drainage, fever, or chills. His injury occurred about 2 weeks ago and he states the original provider that closed the wound would like to leave removal of the joshua to our clinic. 12/28/14 The patient does not report drainage, pain, or erythema associated with the recent right lower leg traumatic wound. He also waiting to discuss his compression wraps with his PCP in regards to when they may be available to start wearing. 12/25/14 The patient has a new traumatic leg wound which he sustained in his house when he ran into a dressing stick. Sumava Resorts were placed at [facility]. 12/18/14 The patient states his PCP has received all documentation to process the order for his compression wraps and he does not report any new problems regarding his bilateral lower extremity lymphedema. 12/11/14 The patient reports progress in regard to obtaining his lymphedema pumps. His lymphedema is reportedly unchanged today. 12/06/14 The patient reports some 'redness' over the dosum of the right foot but no associated pain. 11/28/14 The patient notes a decrease in the area of erythema on his left leg. His lymphedema is otherwise unchanged by his report. He continues to try and obtain lymphedema pumps with the help of social work. 11/20/14 The patient notes that the area of erythema on his left lymphedematous leg coincides exactly with where he rests his opposite leg when he sleeps. He wonders if the pressure from his other leg resting on this area is causing the erythema. 11/16/14 The patient reports the previously mentioned erythema over he left lower leg persists but has not necessarily worsened nor does he report pain or increased swelling at the site. 11/10/14 The patient reports erythema but not pain, increased swelling, or fever over the left anterior lower leg. He states he sleeps with his right leg overlying the mentioned area and feels the erythema may be from pressure. 11/03/14 Pt reports he intentionally held his BP meds today to help us be able to get a blood pressure reading. He takes Coreg and Lisinopril and reports that the provider who prescribes his medical marijuana also prescribes his blood pressure medications. Additionally he believes his weight increase is due to falling in love with deep dish pizza recently. 10/26/14 The patient reports he has been taking his wraps off a day before his appointment to have them re-wrapped. He believes this accounts for his increased leg circumference measurements. 10/19/14 The patient notes no change in his lymphedema however he reports improvement in his skin lichenification with application of baby oil to his skin. 10/11/14 The patient reports some erythema over the dorsum of his right foot as well as new pain in the 5th toe that started 2-3 days ago. Otherwise, we've been attempting to facilitate lymphedema pumps but have been unsuccessful with two suppliers thus far. 10/04/14 The patient continues to tolerate his compression wraps without complaints and is awaiting approval from a new lymphedema pump supplier. He was denied from the previous supplier in August 2014. 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 1996 at age 35;; chronic; bilateral lower extremities) Diverticulitis - 07/26/2014 Trauma wound - 12/25/2014 (deep; right lower leg requiring joshua) Complaints and Symptoms This information was obtained from the patient Patient complains of: General Notes: I have reviewed and concur with the Review of Systems and Past Family Social History documents completed by the clinician, I have reviewed and concur with the Wound Assessment document completed by the clinician Cardiovascular (Central): Dyspnea on Exertion, Orthopnea Cardiovascular (Central/Peripheral): Lower extremity (leg) swelling Genitourinary (): Urinary Incontinence Integumentary (Hair/Skin/Nails): Lesions Neurological: Loss of Protective Sensation, Weakness Prior Wound History: Bleeding, Drainage, Erythema, Pain Patient denies complaints or symptoms related to: Cardiovascular (Peripheral) Constitutional Symptoms (General Health): Chills, Fever Ear/Nose/Mouth/Throat: Hearing Loss / Aid Gastrointestinal (GI): Stomach/abdominal pain Integumentary (Hair/Skin/Nails): Open Sore Oncologic Prior Wound History: Malodor Respiratory: Oxygen Use, Shortness of Breath OBJECTIVE Constitutional Vital signs reviewed and noted. Well developed. Alert. Clean appearing.. Height/ Length: 69 in (175.26 cm), Weight: 349.9 lbs (159.05 kgs), BMI: 51.7, Temperature: 98.5 ?F ( 36.94 ?C), Pulse: 79 bpm, Respiratory Rate: 20 breaths/min, Blood Pressure: 139/73 mmHg, Capillary Blood Glucose: 120 mg/dl, Pulse Oximetry: 98 %. Vital Signs Notes: Glucose per patient. Cardiovascular: 3+ bilateral lower leg edema. Gastrointestinal (GI): Obese. Nondistended.. Integumentary (Hair, Skin) No periwound erythema, warmth, or significant drainage. No periwound rashes appreciated or noted otherwise.. Refer to appropriate clinician wound documentation for this visit; right thigh ulcer extends to subcut with base partially covered with pink granulation, remainder fibrin and slough; left thigh and elbow ulcers healed. Wound #3 Right, Medial Thigh is an acute Stage 3 Pressure Injury Pressure Ulcer and has received a status of Not Healed. Subsequent wound encounter measurements are 0.6cm length x 0.8cm width x 0.1cm depth, with an area of 0.48 sq cm and a volume of 0.048 cubic cm. No tunneling has been noted. No sinus tract has been noted. No undermining has been noted. There is a moderate amount of sero-sanguineous drainage noted which has no odor. The patient reports a wound pain of level 8/10. The wound margin is irregular. Wound bed has Yes epithelialization, No eschar, Yes slough, Yes bright red, firm granulation. The periwound skin moisture is normal. The periwound skin color is normal. The periwound skin exhibited: Induration. The periwound skin did not exhibit: Brawny Induration, Edema, Excoriation, Callus, Crepitus, Fluctuance, Friable, Rash. The temperature of the periwound skin is WNL. Periwound skin does not exhibit signs or symptoms of infection. Local Pulse is Normal. General Notes: Bridges measuring .5x1.8 Wound #4 Left, Medial Thigh is an acute Stage 3 Pressure Injury Pressure Ulcer and has received an outcome of Healed - no new wound(s). Subsequent wound encounter measurements are 0cm length x 0cm width x 0.1cm depth, with an area of 0 sq cm and a volume of 0 cubic cm. No tunneling has been noted. No sinus tract has been noted. No undermining has been noted. There is a moderate amount of sero-sanguineous drainage noted which has no odor. The patient reports a wound pain of level 8/10. The wound margin is irregular. Wound bed has Yes epithelialization, No eschar, No slough, No granulation. The periwound skin moisture is normal. The periwound skin color is normal. The periwound skin exhibited: Edema. The periwound skin did not exhibit: Brawny Induration, Excoriation, Induration, Callus, Crepitus, Fluctuance, Friable, Rash. The temperature of the periwound skin is WNL. Periwound skin does not exhibit signs or symptoms of infection. Local Pulse is N/A. Wound #5 Left Elbow is an acute Unstageable Pressure Injury Obscured full- thickness skin and tissue loss Pressure Ulcer and has received an outcome of Healed - new wound(s) - prevent. Initial wound encounter measurements are 0cm length x 0cm width x 0cm depth, with an area of 0 sq cm and a volume of 0 cubic cm. Hypergranulation was noted. No tunneling has been noted. No sinus tract has been noted. No undermining has been noted. There was no drainage noted. The patient reports a wound pain of level 0/10. The wound margin is attached. Wound bed has Yes epithelialization, No eschar, No slough, No granulation. The periwound skin texture is normal. The periwound skin moisture is normal. The periwound skin color is normal. The temperature of the periwound skin is WNL. Periwound skin does not exhibit signs or symptoms of infection. Local Pulse is Palpable. ASSESSMENT Active Problems ICD-10 (Encounter Diagnosis) L97.112 - Non-pressure chronic ulcer of right thigh with fat layer exposed (Encounter Diagnosis) L97.122 - Non-pressure chronic ulcer of left thigh with fat layer exposed (Encounter Diagnosis) L89.023 - Pressure ulcer of left elbow, stage 3 PROCEDURES Wound #3 Wound #3 (Pressure Ulcer) is located on the right, medial thigh. A skin/ subcutaneous tissue level surgical debridement with a total area debrided of 0.48 sq cm was performed by Paewl Schofield MD. Subcutaneous was removed along with devitalized tissue: slough. The following instrument(s) were used: curette. Pain control was achieved using 4% Lido. A time out was conducted prior to the start of the procedure. A minimal amount of bleeding was controlled with pressure. The procedure was tolerated well with a pain level of 0 throughout and a pain level of 0 following the procedure. Post Debridement Measurements: 0.6cm length x 0.8cm width x 0.1cm depth; with an area of 0.48 sq cm and a volume of 0.048 cubic cm; Additional Information Muscle fascia or bone removed and sent to pathology?: No PLAN Wound Orders: Wound #3 Right, Medial Thigh Cleanser Cleanse Wound: - With Normal saline or distilled water. Dressings Primary dressing: - Optifoam and tegaderm to wound. Change Dressing: - Every other day. Follow-Up Appointments Return Appointment: - - In one week Other information: If you develop fever, chills, increased pain, drainage, redness or swelling please call our office. If after hours, respond to the ER. Should you experience any significant changes in your wound(s) or have any questions regarding your home care instructions please contact the wound center @ [phone]. If after hours, contact your primary care physician or go to the hospital emergency room. Scribing Attestation I attest, as the nurse, that I scribed these orders for the physician. General Notes: [facility] to continue dressing changes. Foam to Left leg for protection, wound has healed. I've reviewed the clinician's documentation and agree with the evaluation and plan as written. In addition, the patient's ulcer demonstrates evidence of non-viable devitalized tissue which will continue to benefit from sharp debridement to help promote granulation and expedite healing. Electronic Signature(s) Signed By: Date: Pawel Schofield MD 05/06/2018 09:16:50 Entered By: Pawel Schofield on 05/06/2018 08:59:30
== END ==
PROVIDERS: Family Provider Family Medicine; PCP Family Medicine; Visit Provider Internal Medicine
DX: L89.893 Pressure ulcer of other site, stage 3 (principal); L89.023 Pressure ulcer of left elbow, stage 3
CPT/HCPCS: 11042

== ENCOUNTER → 2018-05-12 13:35 | Outpatient (CLI) | payer MEDICARE, MEDICAID, SELFPAY ==
--- NOTE | 2018-05-12 | OV.WND_ITS ---
Progress Note Details Patient Name: Xiang Barton Patient Number: [id number] PatientPatientDate: 05/12/2018 Clinician: Lacie Márquez Clinician Cosigner: Lisa Tineo Physician / [employer] Principal: Pawel Schofield SUBJECTIVE Chief Complaint This information was obtained from the patient Ulcers on bilateral medial thighs. Allergies clindamycin (Severity: Mild, Reaction: bloating/loss of appetite) HPI This information was obtained from the patient 05/12/18. Seen by Dr. Schofield. The patient does not report pain or significant drainage associated with the chronic right proximal thigh pressure ulcer since his last visit. 05/05/18. Seen by Dr. Schofield. The patient does not report pain or significant drainage associated with the chronic bilateral, proximal thigh pressure ulcers since his last visit. His left elbow ulcer is also reportedly healed today. 04/28/18. Seen by Dr. Schofield. The patient does not report pain or significant drainage associated with the chronic bilateral, proximal thigh pressure ulcers since his last visit. He also now reports a left elbow ulcer that's been draining but is not painful. He wears a sling on the left arm at all times to elevate the arm which helps in managing lymphedema brought on by a stroke he had many years ago. 04/21/18. Seen by Dr. Schofield. The patient does not report pain or significant drainage associated with the chronic bilateral, proximal thigh pressure ulcers since his last visit and he's not off of antibiotics. 04/14/18. Seen by Dr. Schofield. The patient continues to report pain associated with the chronic bilateral, proximal thigh pressure ulcers and he only started his Bactrim last night that's treating the recent Morganella positive wound culture. The patients morbidly obese and wheelchair dependent plus has diabetes all of which significantly complicate healing of the pressure ulcers. 04/08/18. Seen by Dr. Schofield. The patient returns to our clinic with bilateral medial, proximal thigh pressure ulcers that he states have been present for about a week and were caused by compression wraps that were applied to treat his severe bilateral lymphedema. He 's not on antibiotics currently and he reports some pain at the ulcer sites. He also has diabetes which is historically well controlled and the ulcers are complicated by morbid obesity and his dependence upon a wheelchair since having a stroke many years ago. 05/15/[address] Schofield. The patient does not report drainage from the previously described right lower leg non-healing trauma wound. He also states he's only applying his Juxta-Lites every other day. 04/23/15 Seen by Lars Stevenson PA-C. The patient notes no drainage in his SNAP canister or tube. 04/16/15 Seen by Lars Stevenson PA-C. The patient reports drainage in the SNAP tube but not in the canister. Denies pain or changes in his lymphedema. 04/04/[address] Schofield. The patient reports increased drainage from the right lower leg non-healing trauma wound over the past few days. He does not report erythema, pain, or swelling. 03/26/[address] Schofield. The patient states there's been no drainage from the right lower leg wound since last week. 03/12/15 Seen by Lars Stevenson PA-C. The patient notes minimal drainage from his right leg wound. 03/05/15 Seen by Lars Stevenson PA-C. The patient has had no difficulty with his SNAP or wraps. 02/26/15 Seen by Lars Stevenson PA-C. The patient reports no fever or chills and little to no wound pain. 02/09/15 Seen by Lars Stevenson PA-C. The patient does not report fever, chills or increased wound pain or drainage. 02/13/15 Seen by Lars Stevenson PA-C today. The patient has been taking his clindamycin and has had not difficulty with his SNAP dressing or leg wrap. He does not report fever or chills. 02/09/15 Seen by Lars Stevenson PA-C. The patient does not report fever or chills, but is running a temp of 99.4 today in clinic. He has been off of his Clindamycin now for a few days. He does not report increased wound pain and he tolerated the SNAP well. 01/30/15 Seen by Lars Stevenson PA-C. The patient reports no fever, chills or increased wound pain or drainage. 01/25/15 The patient does not report pain or increased drainage associated with his right lower leg wound and he continues on clindamycin and Bactrim. He does not report fever or chills and tolerated the SNAP wound vac without difficulty. 01/22/15 The patient does not report pain or drainage associated with the right lower leg wound. He continues on clindamycin and does not report any adverse side effects. 01/11/15 The patient does not report increased drainage nor pain associated with the right lower leg wound. He continues taking azithromycin. 01/09/15 The patient does not report pain or increased drainage from the right lower leg wound and he started azithromycin this morning based on the very resistant coag negative Staph that was cultured from his wound at the last visit. He states his blood sugars remain well controlled and he's have no fever or constitutional symptoms. 01/04/15 The patient complains of some persistent pain along the right lower leg traumatic wound site but does not report significant drainage, fever, or chills. His injury occurred about 2 weeks ago and he states the original provider that closed the wound would like to leave removal of the joshua to our clinic. 12/28/14 The patient does not report drainage, pain, or erythema associated with the recent right lower leg traumatic wound. He also waiting to discuss his compression wraps with his PCP in regards to when they may be available to start wearing. 12/25/14 The patient has a new traumatic leg wound which he sustained in his house when he ran into a dressing stick. [place] were placed at [facility] ER. 12/18/14 The patient states his PCP has received all documentation to process the order for his compression wraps and he does not report any new problems regarding his bilateral lower extremity lymphedema. 12/11/14 The patient reports progress in regard to obtaining his lymphedema pumps. His lymphedema is reportedly unchanged today. 12/06/14 The patient reports some 'redness' over the dosum of the right foot but no associated pain. 11/28/14 The patient notes a decrease in the area of erythema on his left leg. His lymphedema is otherwise unchanged by his report. He continues to try and obtain lymphedema pumps with the help of social work. 11/20/14 The patient notes that the area of erythema on his left lymphedematous leg coincides exactly with where he rests his opposite leg when he sleeps. He wonders if the pressure from his other leg resting on this area is causing the erythema. 11/16/14 The patient reports the previously mentioned erythema over he left lower leg persists but has not necessarily worsened nor does he report pain or increased swelling at the site. 11/10/14 The patient reports erythema but not pain, increased swelling, or fever over the left anterior lower leg. He states he sleeps with his right leg overlying the mentioned area and feels the erythema may be from pressure. 11/03/14 Pt reports he intentionally held his BP meds today to help us be able to get a blood pressure reading. He takes Coreg and Lisinopril and reports that the provider who prescribes his medical marijuana also prescribes his blood pressure medications. Additionally he believes his weight increase is due to falling in love with deep dish pizza recently. 10/26/14 The patient reports he has been taking his wraps off a day before his appointment to have them re-wrapped. He believes this accounts for his increased leg circumference measurements. 10/19/14 The patient notes no change in his lymphedema however he reports improvement in his skin lichenification with application of baby oil to his skin. 10/11/14 The patient reports some erythema over the dorsum of his right foot as well as new pain in the 5th toe that started 2-3 days ago. Otherwise, we've been attempting to facilitate lymphedema pumps but have been unsuccessful with two suppliers thus far. 10/04/14 The patient continues to tolerate his compression wraps without complaints and is awaiting approval from a new lymphedema pump supplier. He was denied from the previous supplier in August 2014. 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 1996 at age 35;; chronic; bilateral lower extremities) Diverticulitis - 07/26/2014 Trauma wound - 12/25/2014 (deep; right lower leg requiring joshua) Complaints and Symptoms This information was obtained from the patient Patient complains of: General Notes: I have reviewed and concur with the Review of Systems and Past Family Social History documents completed by the clinician, I have reviewed and concur with the Wound Assessment document completed by the clinician Cardiovascular (Central): Dyspnea on Exertion, Orthopnea Cardiovascular (Central/Peripheral): Lower extremity (leg) swelling Genitourinary (): Urinary Incontinence Integumentary (Hair/Skin/Nails): Lesions Neurological: Loss of Protective Sensation, Weakness Prior Wound History: Bleeding, Drainage, Erythema, Pain Patient denies complaints or symptoms related to: Cardiovascular (Peripheral) Constitutional Symptoms (General Health): Chills, Fever Ear/Nose/Mouth/Throat: Hearing Loss / Aid Gastrointestinal (GI): Stomach/abdominal pain Integumentary (Hair/Skin/Nails): Open Sore Oncologic Prior Wound History: Malodor Respiratory: Oxygen Use, Shortness of Breath OBJECTIVE Constitutional Vital signs reviewed and noted. Well developed. Alert. Clean appearing.. Height/ Length: 69 in (175.26 cm), Weight: 349.9 lbs (159.05 kgs), BMI: 51.7, Temperature: 98.7 ?F ( 37.06 ?C), Pulse: 80 bpm, Respiratory Rate: 20 breaths/min, Blood Pressure: 131/72 mmHg, Capillary Blood Glucose: 110 mg/dl, Pulse Oximetry: 94 %. Vital Signs Notes: Glucose per patient. Ears, Nose, Mouth, and Throat: No clinically significant hearing loss on informal examination. Cardiovascular: 3+ bilateral lower leg edema. Gastrointestinal (GI): Obese. Nondistended.. Integumentary (Hair, Skin) Refer to appropriate clinician wound documentation for this visit.. Wound #3 Right, Medial Thigh is an acute Stage 3 Pressure Injury Pressure Ulcer and has received an outcome of Healed - no new wound(s). Subsequent wound encounter measurements are 0cm length x 0cm width with no measurable depth, with an area of 0 sq cm . No tunneling has been noted. No sinus tract has been noted. No undermining has been noted. There was no drainage noted. The patient reports a wound pain of level 0/ 10. The wound margin is irregular. Wound bed has Yes epithelialization, No eschar, No slough, No granulation. The periwound skin texture is normal. The periwound skin moisture is normal. The periwound skin color is normal. The temperature of the periwound skin is WNL. Periwound skin does not exhibit signs or symptoms of infection. Local Pulse is Normal. ASSESSMENT Active Problems ICD-10 (Encounter Diagnosis) L97.112 - Non-pressure chronic ulcer of right thigh with fat layer exposed (Encounter Diagnosis) L89.023 - Pressure ulcer of left elbow, stage 3 PLAN Additional Orders: Off-Loading Keep weight off: - Left elbow. Please do not use arm sling. Follow-Up Appointments Other information: If you develop fever, chills, increased pain, drainage, redness or swelling please call our office. If after hours, respond to the ER. Should you experience any significant changes in your wound(s) or have any questions regarding your home care instructions please contact the wound center @ [phone]. If after hours, contact your primary care physician or go to the hospital emergency room. Discharge from Outpatient Services. - wound healed Scribing Attestation I attest, as the nurse, that I scribed these orders for the physician. I've reviewed the clinician's documentation and agree with the evaluation and plan as written. In addition the patient's last remiaining complex wound is now healed. The patient is invited to return to our clinic for treatment of any future complex wounds. Post wound care and strategies to avoid recurrences were discussed. Electronic Signature(s) Signed By: Date: Pawel Schofield MD 05/13/2018 06:27:44 Entered By: Pawel Schofield on 05/13/2018 06:08:25
== END ==
PROVIDERS: Family Provider Family Medicine; PCP Family Medicine; Visit Provider Internal Medicine
DX: L89.893 Pressure ulcer of other site, stage 3 (principal)
CPT/HCPCS: 99212

== ENCOUNTER → 2019-01-10 14:59 | Outpatient (CLI) | payer MEDICARE, MEDICAID, SELFPAY | PROVIDERS: Family Provider Family Medicine; PCP Family Medicine; Visit Provider Podiatrist Primary Podiatric Medicine | DX: I89.0 Lymphedema, not elsewhere classified (principal) | CPT/HCPCS: 99212; 99214 ==

== ENCOUNTER 2019-01-20 12:33 | Emergency (ER) | payer MEDICARE, MEDICAID, SELFPAY ==
[2019-01-20 12:45] VITALS: BP 145/67; PULSE 87; RESP 18; TEMP 37.1; O2SAT 97
--- NOTE | 2019-01-20 12:48 | PC.NURSE ---
Does not smoke cigarettes, smokes about a gram of cannabis a day.
--- NOTE | 2019-01-20 13:04 | PC.NURSE ---
hx of lymphedema/elephantitis. left lower foot/leg with draining , pt concern for infections. denies fever,vomiting.
[2019-01-20 13:44] VITALS: BP 122/68; PULSE 86; RESP 15; O2SAT 97
[2019-01-20 14:01] LABS: Add Manual Diff / Slide Review NO; Basophils Absolute Auto 200 /uL (0-100); Basophils Percent Auto 1.4 % (0-2); Eosinophils Absolute Auto 100 /uL (0-450); Eosinophils Percent Auto 0.9 % (2-4); Hematocrit 34.5 % (41-53); Hemoglobin 11.6 g/dL (13.5-17.5); Lymphocytes Absolute Auto 1900 /uL (1100-4500); Lymphocytes Percent Auto 16.7 % (25-40); Mean Corpuscular HGB Conc 33.6 % (30-36); Mean Corpuscular Hemoglobin 27.5 PG (26-34); Mean Corpuscular Volume 81.8 fL (80-100); Monocytes Absolute Auto 800 /uL (0-900); Monocytes Percent Auto 6.7 % (3-14); Neutrophils Absolute Auto 8600 /uL (1500-7000); Neutrophils Percent Auto 74.3 % (50-75); Platelet Count 203 X10^3/uL (150-400); Red Blood Cell Count 4.21 X10^6/uL (4.5-5.9); Red Cell Distribution Width 15.9 % (11.6-14.8); White Blood Cell Count 11.6 X10^3/uL (4.5-11.0)
[2019-01-20 14:54] VITALS: BP 132/67; PULSE 94; RESP 16; O2SAT 99
[2019-01-20 16:34] VITALS: BP 157/83; PULSE 104; RESP 18; O2SAT 99
--- NOTE | 2019-01-20 17:10 | PC.NURSE ---
left foot irrigated with warm saline, dried, pads applied, with coban. tolerated procedure well. dc home via w/c
--- NOTE | 2019-01-20 17:12 | PC.NURSE ---
jermaine with darby johnson.
--- NOTE | 2019-01-27 11:36 | ED_ITS ---
HPI - Extremity Problem General Chief complaint: Extremity Problem,Nontraumatic Stated complaint: Leg Swelling Time Seen by Provider: 01/20/19 13:01 Source: patient Mode of arrival: ambulatory Limitations: no limitations History of Present Illness HPI Narrative: Patient comes emergency department to ?have my legs checked?. Patient has a history of longstanding, severe lymphedema in his bilateral lower extremities, and has had some sores that have been slow to heal. Patient states that he has felt a burning feeling in his legs and wants to make sure that he is not getting an infection. Patient states he does not feel ill in any other way. He has not noticed an increased in redness in his legs. Patient states that he has not had chest pain or shortness of breath. He has not had body aches, chills, or weakness. No measured fevers. Patient states otherwise he feels completely fine. No other complaints at this time. No history of DVT. Patient is still ambulatory. Related Data Home Medications Medication Instructions Recorded Confirmed albuterol sulfate [Ventolin HFA] 1 puff INHALATION PRN PRN 01/20/19 01/20/19 atorvastatin 20 mg PO BEDTIME 01/20/19 01/20/19 carvedilol 25 mg PO BID 01/20/19 01/20/19 gabapentin 100 mg PO BID 01/20/19 01/20/19 hydrocortisone [Proctozone-HC] 1 applic TOPICAL BID PRN 01/20/19 01/20/19 lisinopril 10 mg PO DAILY 01/20/19 01/20/19 metformin 500 mg PO BID 01/20/19 01/20/19 nystatin 1 applic TOPICAL BID 01/20/19 01/20/19 omeprazole 20 mg PO DAILY 01/20/19 01/20/19 ondansetron HCl 4 mg PO Q4H PRN 01/20/19 01/20/19 trazodone 75 mg PO BEDTIME 01/20/19 01/20/19 triamcinolone acetonide 1 applic TOPICAL PRN PRN 01/20/19 01/20/19 Review of Systems Constitutional Denies chills, Denies fever(s), Denies lethargy and Denies weakness Eyes Denies change in vision, Denies eye discharge, Denies irritation and Denies loss of vision ENT Ears, Nose, Mouth, and Throat: Denies change in voice, Denies neck pain and Denies sore throat Cardiovascular Denies chest pain, Denies irregular heart rhythm, Denies lightheadedness, Denies palpitations, Denies dyspnea, Denies dyspnea on exertion and Denies orthopnea Respiratory Denies cough, Denies dyspnea, Denies dyspnea on exertion and Denies wheezing Gastrointestinal Gastrointestinal: Denies abdominal pain, Denies change in bowel habits, Denies diarrhea, Denies nausea and Denies vomiting Genitourinary Denies hematuria, Denies flank pain, Denies urinary incontinence and Denies urinary urgency Musculoskeletal Denies neck pain Comments: Burning in legs Integumentary/Breasts Denies pruritus, Denies erythema, Denies rash and Reports wounds (Chronic, bilateral lower extremities) Neurologic Denies confusion, Denies loss of vision and Denies weakness Psychiatric Denies anxiety, Denies confusion, Denies depression, Denies homicidal ideation and Denies suicidal ideation Endocrine Denies palpitations Hematologic/Lymphatic Denies easy bruising Allergic/Immunologic Denies wheezing [facility] Medical History Asthma (Acute) Hyperlipidemia (Acute) HTN (hypertension) (Acute) Obesity (Acute) Lymphedema (Acute) Social History Smoking Status: Current every day smoker Social History Smoking Status: Current every day smoker Exam Initial Vital Signs Initial Vital Signs: Vital Signs Temperature 98.8 F 01/20/19 12:45 Pulse Rate 87 01/20/19 12:45 Respiratory Rate 18 01/20/19 12:45 Blood Pressure 145/67 H 01/20/19 12:45 Pulse Oximetry 97 01/20/19 12:45 Const General: cooperative and well developed Nutritional Appearance: well nourished Orientation: alert, awake, oriented x3 and not confused HENRI Head: normocephalic and atraumatic Ears: external ears normal and TM's normal bilaterally Nose: external nose normal and No nasal discharge Face and sinus: sinuses nontender, face symmetric, no sinus tenderness and No dry mucous membranes Mouth: oral mucosae normal and moist mucous membranes Teeth and gingiva: dentition normal Throat: tonsils normal and uvula midline Eyes General: appearance normal, both eyes and all related structures Eyelids: eyelids normal Conjunctivae: conjunctivae normal Sclera: sclerae normal Pupils: PERRL EOM: EOM intact bilaterally Neck Neck: normal visual inspection, trachea midline, No lymphadenopathy, No midline deformity and No JVD Lymphatic: No lymphedema Chest Chest: normal inspection of the chest Resp Effort & Inspection: normal respiratory effort, able to speak in complete sentences, no respiratory distress and no use of accessory muscles Auscultation: clear to auscultation bilaterally, no rales, no rhonchi and no wheezes Cardio Rate: regular rate Rhythm: regular rhythm Heart Sounds: no click, no gallops, no murmurs and no rubs Pulses: normal peripheral pulses GI Inspection: non-distended and obesity Palpation: soft, no hepatosplenomegaly, No guarding, No pulsatile mass and No tender Auscultation: normal bowel sounds Back/Spine/Pelvis Back: No CVA tenderness Cervical Spine: cervical ROM normal and No pain with cervical ROM Thoracic/Lumbar Spine: thoracic and lumbar spine normal to inspection Skin General: no rashes or lesions noted, No jaundice and No petechiae Other: Severe enlargement of bilateral lower extremities with weeping of the skin, secondary to severe edema, is noted. There is no erythema present that is consistent with cellulitis. Scant, shallow, non-ulcerated wounds are noted on the patient's anterior and lateral lower legs. No purulent drainage from any of the wounds. No fluctuance or induration the that is distinct from the surrounding tissue. Neuro General: alert, oriented x3, gait normal and no focal motor deficits Speech: speech normal Extrem General: full ROM, no clubbing, cyanosis or edema, no pedal edema and no calf tenderness Right lower extremity: edema Details: pitting and 4+ Left lower extremity: edema Details: pitting and 4+ Other: Patient has severely enlarged bilateral lower extremities with changes consistent with chronic lymphedema. Lower extremities are symmetrical bilaterally. Psych Appearance: well kempt Mental Status: mental status grossly normal Attitude: cooperative Thought Content: normal and suicidality Judgment: judgment good Course Course Narrative: I discussed with the patient that his skin does not show evidence of cellulitis. His white blood cell count is not significantly elevated. The patient's symptoms are symmetrical bilaterally, and there is no drainage from his wounds. I discussed the signs of infection with the patient. We discussed home management of symptoms, as well as the usual indications for return. Orders Ordered: ED Orders 01/20/19 13:55 Complete Blood Count AUTO DIFF Stat Vital Signs - 8 hr 01/20/19 12:45 01/20/19 13:44 Temperature 98.8 F Pulse Rate 87 86 Respiratory Rate 18 15 Blood Pressure [Right Arm] 145/67 H 122/68 Pulse Oximetry 97 97 MDM - Extremity (Nontraumatic) Medical Records Attestation: I reviewed the patient's medical records. Lab Data Attestation: I reviewed the patient's lab results. Result diagrams: 01/20/19 13:55 Lab Results 01/20/19 Range/Units 13:55 WBC 11.6 H (4.5-11.0) X10^3/uL RBC 4.21 L (4.5-5.9) X10^6/uL Hgb 11.6 L (13.5-17.5) g/dL Hct 34.5 L (41-53) % MCV 81.8 (80-100) fL MCH 27.5 (26-34) PG MCHC 33.6 (30-36) % RDW 15.9 H (11.6-14.8) % Plt Count 203 (150-400) X10^3/uL Neut % (Auto) 74.3 (50-75) % Lymph % (Auto) 16.7 L (25-40) % [place] % (Auto) 6.7 (3-14) % Eos % (Auto) 0.9 L (2-4) % Baso % (Auto) 1.4 (0-2) % Neut # (Auto) 8600 H (2997-6739) /uL Lymph # (Auto) 1900 (3438-5542) /uL [place] # (Auto) 800 (0-900) /uL Eos # (Auto) 100 (0-450) /uL Baso # (Auto) 200 H (0-100) /uL Discharge Plan Departure Patient Disposition: Home Clinical Impression: Lower extremity edema Discharge Date/Time: 01/20/19 17:11 Interventions: ED Discharge Assessment Last Done: 01/20/19 17:10 Instructions: DI for Lymphedema Activity Restrictions/Additional Instructions: There is minimal skin discoloration to indicate a recurrence of your cellulitis. Additionally, your white blood cell count is not significantly elevated, and you have not had a fever. Given all of the above taken into consideration together, it is unlikely that you have cellulitis at this time. If you notice increasing redness of your leg, or if you develop fevers, please have her leg rechecked. Prescriptions: No Action metformin 500 mg tablet 500 mg PO BID RF: 0 carvedilol 25 mg tablet 25 mg PO BID RF: 0 atorvastatin 20 mg tablet 20 mg PO BEDTIME RF: 0 lisinopril 10 mg tablet 10 mg PO DAILY RF: 0 gabapentin 100 mg capsule 100 mg PO BID RF: 0 trazodone 50 mg tablet 75 mg PO BEDTIME RF: 0 nystatin 100,000 unit/gram ointment 1 applic topical BID RF: 0 ondansetron HCl 4 mg tablet 4 mg PO Q4H PRN (Reason: Nausea And Vomiting) RF: 0 hydrocortisone [Proctozone-HC] 2.5 % cream with perineal applicator 1 applic topical BID PRN (Reason: Hemorrhoids) RF: 0 triamcinolone acetonide 0.1 % ointment 1 applic topical PRN PRN (Reason: DIRECTED) RF: 0 omeprazole 20 mg capsule,delayed release(DR/EC) 20 mg PO DAILY RF: 0 albuterol sulfate [Ventolin HFA] 90 mcg/actuation HFA aerosol inhaler 1 puff Inhalation PRN PRN (Reason: Shortness Of Breath) RF: 0 Referrals: Hi Carson MD [Primary Care Provider] -
== END 2019-01-20 17:11 | disposition home or self-care (01) ==
PROVIDERS: Emergency Provider Emergency Medicine; Family Provider Family Medicine; PCP Family Medicine
DX: R60.0 Localized edema (principal)
CPT/HCPCS: 85025; 99283

== ENCOUNTER 2019-03-14 14:01 | Outpatient (RCR) | payer MEDICARE, MEDICAID, SELFPAY ==
--- NOTE | 2019-03-14 14:26 | PT.OPPOC ---
Current Diagnoses Lymphedema, not elsewhere classified (03/14/19) Pain in left lower leg (03/14/19) Weakness (03/14/19) Other reduced mobility (03/14/19) Provider Visit Care Team Role Provider Type Hi Carson MD Family Provider Non-Staff Primary Care Provider Specialty: Family Practice Address: [place], [address] Email: Anh Wagoner DPM Attending Provider Non-Staff Specialty: Podiatry Address: [address] [place] [address], [address] Email: Plan Of Care PT-OP-T Assessment and Plan Start: 03/14/19 14:30 Freq: Status: Active Protocol: Document 03/14/19 14:30 [facility]AK (Rec: 03/15/19 14:23 SAK [id number]) Physical Therapy Assessment Rehab Potential Rehabilitation Potential Fair Evaluation Complexity Number of Personal Factors/Comorbidities 3 or More Number of Body Systems Impaired 4 or More Clinical Presentation at Evaluation Unstable Impairments Impairments Edema Functional Mobility Pain ROM Strength Goals Pain Impairment pain left LE Jail Goal (LTG) Decrease pain left LE 50% to improve tolerance for functional mobility LTG Duration 06/14/19 functional mobility Marine Safety Officer Goal (LTG) Patient to be safe and independent with all household transfers and bed mobility including ability to lift left LE in and out of bed independently. LTG Duration 06/14/19 LE strength deficits Short Term Goal (STG) Initiate LE strengthening exercises Jail Goal (LTG) Improve LE strength by at least 1/2 grade, patient to be independent with HEP for purposes of strengthening. Education of caregiver as necessary and possible LTG Duration 06/14/19 LE ROM deficits Short Term Goal (STG) Instruct in sequential lymphedema ROM exercise program and issue written instructions STG Duration 4 wks Marine Safety Officer Goal (LTG) Improve ROM natacha LE's to WNL, patient to be independent with sequential lymphedema exercises. Education of caregiver as necessary and possible LTG Duration 06/14/19 Lymphedema Impairment lymphedema natacha LE's left greater than right Marine Safety Officer Goal (LTG) Decrease lymphedema to stable level (no increase or decrease > 1 cm over the course of 1 wk) and have patient fit with appropriate compression garment/wraps for self- management. Consider pneumatic pump for lymphedema reduction. LTG Duration 06/14/19 Assessment Summary Assessment Patient presents with severe lymphedema left LE, moderate in right. Weaping of fluid and numerous fluid-filled pustules left LE, a few on right. No redness or increased warmth noted. Complicating the lymphedema is prior left LE fracture and CVA with hemiparesis left LE which minimizes the muscular pump effect on lymphatic fluid . Patient is obese, no regular exercise routine, and uses power wheelchair for mobility. At this time patient is unable to elevate his LE's through use of w/c elevating legrests and tilt in space function due to waiting for new wheelchair. His Farrow wraps for his LE's are worn out and unusable. He would benefit for physical therapy to address his lymphedema through lymphedema wrapping initially with short -stretch bandages while we work to obtain new Farrow wraps, pneumatic pump, sequential lymphedema exercises. At this time can only perform manual lymphatic drainage right LE due to weaping of fluid left LE. I will contact his complex case manager to determine insurance coverage and appropriate avenue for obtaining compression wraps for this patient. Would recommend education of his caregivers in wrapping technique. Physical Therapy Plan Frequency and Duration Frequency of Treatment 3x/Week Duration of Treatment 12 wks Plan of Care Start Date 03/14/19 Plan of Care End Date 06/14/19 Therapeutic Interventions Therapeutic Interventions Home Exercise Program Lymphedema Management Manual Therapy Patient/Caregiver Education Self-Care/Home Management Therapeutic Exercises Next Visit Focus/Plan Next Note Type Treatment Note Next Visit Plan Pneumatic pump to left LE, MLD right LE, sequential lymphedema exercises natacha LE's, lymphedema wrapping bilateral LE's. Plan of Care Dates Plan of Care Start Date 03/14/19 Plan of Care End Date 06/14/19 Please Sign and Return: I have reviewed this Plan of Care and certify that the skilled therapy services above are required to meet the patient?s needs. Physician Signature Date Printed Name and Credentials Clinical Instructor Signature Printed Name and Credentials
--- NOTE | 2019-03-14 14:30 | PT.OIE ---
Current Diagnoses Lymphedema, not elsewhere classified (03/14/19) Pain in left lower leg (03/14/19) Weakness (03/14/19) Other reduced mobility (03/14/19) Past Medical History (Last Reviewed 01/27/19 @ 11:30 by Ingrid De Santiago MD) Asthma (Acute) Hyperlipidemia (Acute) HTN (hypertension) (Acute) Obesity (Acute) Lymphedema (Acute) Provider Visit Care Team Role Provider Type Hi Carson MD Family Provider Non-Staff Primary Care Provider Specialty: Family Practice Address: [place], [address] Email: Anh Wagoner DPM Attending Provider Non-Staff Specialty: Podiatry Address: [address] [place] [address], [id number] Email: Physical Therapy Initial Evaluation PT-OP-A Visit Information Start: 03/14/19 14:30 Freq: Status: Active Protocol: Document 03/14/19 14:30 [facility] (Rec: 03/14/19 17:16 [facility] [id number]) Out-Patient Physical Therapy Visit Information Visit Information Visit Type Initial Evaluation Visit Start Time 14:30 Visit Stop Time 16:00 Total Visit Minutes 90 Visit Number 1 Number of VALVER Visits 0 Evaluation Information Evaluation Date 03/14/19 Precautions Precautions Lymphedema natacha LE's left greater than right diagnosed 6 yrs ago DM type II Urinary incontinence Hx CVA with left sided weakness, non ambulatory Morbid obesity reactive airway disease Hypertension diverticulitis trauma wound 12/25/2014 right LE fracture left LE approx 10 yrs ago PT-OP-B Current Condition Start: 03/14/19 14:30 Freq: Status: Active Protocol: Document 03/14/19 14:30 [facility]AK (Rec: 03/14/19 17:16 SAK [id number]) Current Condition History of Current Condition Onset Date 6 yrs Current Complaints lymphedema natacha LE's left greater than right History of Current Condition Patient presents with lymphedema bilateral LE's right greater than left which he reports started approx 6 yrs ago with gradual worsening . This is complicated by left UE and LE hemiparesis from CVA as well as reported left LE fracture from fall 10 yrs ago. Patient reports he has a caregiver 4 hrs per day through [facility], private caregiver who has previously done wrapping of his legs. Poor activity level, unable to ambulate, doesn't perform any regular exercise. Patient sister highly involved from a distance with patient' s care; frequent phone calls to wound care and PT department including today. Prior Treatments and Tests Lymphedema wraps; has used Farrow wraps which are now worn out, unable to be used. Patient reports his porter sample case is ordering new wraps for him, but sister reports porter sample case unable to do this and requests PT assist with obtaining wraps. Lymphedema pump previously denied Lymphatic massage; patient reports he previously refused due to feeling uncomfortable with massage, receptive to it now. Use of power wheelchair with tilt and elevating legrests; patient reports tilt and elevating legrests not working for past 2 1/2 months, no power wheelchair today due to patient reporting he forgot to charge last night. Unable to elevate his legs. Per sister new w/c on order. Treatment Goals Patient/Caregiver Goals Decrease his lymphedema, obtain new wraps, improve his mobility to allow him to stay in his home. Prior Functional Status Baseline Function- ADL's Needs Assist Baseline Function- Mobility Needs Assist Baseline Function- Gait unable Baseline Function- Work/School unable Baseline Function- Recreation/Hobbies watches TV Baseline Function- Other No regular exercise, sleeps in chair. Current Functional Impairments (Reported) Functional Limitations- ADL's increased lymphedema making it difficult to lift his leg or use functionally with transfers Functional Limitations- Mobility/Gait unable to ambulate. Uses quad cane for transfers. Unable to lift his left LE onto a bed , sleeps in chair Functional Limitations- Work/School unable Functional Limitations- Recreation/ watches TV Hobbies Personal Factors Other Personal Factors That May Effect obesity, low activity level Therapy/Recovery PT-OP-C Subjective Start: 03/14/19 14:30 Freq: Status: Active Protocol: Document 03/14/19 14:30 [facility] (Rec: 03/15/19 10:29 [facility] [id number]) Patient Questionnaires Lymphedema Life Impact Score Lymphedema Score not completed today OP-PT Pain Assessment Pain Assessment Grid Paper Pain Assessment Grid Completed Yes Location left foot and lower leg Intensity 6 Scale Used Numeric (1 - 10) Description Aching Pressure Shooting Tender Throbbing Description- Other pain with palpation and movement Pain Alleviating Factors None Home Pain Medication Use Pain Medications Used Yes: unable to name except medical marijuana PT-OP-G Mobility & Gait Start: 03/14/19 14:30 Freq: Status: Active Protocol: Document 03/14/19 14:30 [facility] (Rec: 03/15/19 10:29 [facility] [id number]) OP Mobility Evaluation Bed Mobility Rolling mod assist Supine to and from Sit mod assist Transfers Sit to Stand min assist with multiple attempts from manual w/c and PT plinth at same height Bed to Chair Transfers SBA Car Transfers NA Floor Transfers NA Functional Movements Other Functional Movements Unable to lift his left LE into the bed Wheelchair Management Assessment Details To PT today in manual w/c, needed mod assist for w/c mobility. Had no legrest on left OP Gait Assessment Factors Limiting Gait Function Factors Limiting Gait Function Abnormal Tonal Influences Decreased Strength PT-OP-K Range of Motion Start: 03/14/19 14:30 Freq: Status: Active Protocol: Document 03/14/19 14:30 [facility] (Rec: 03/15/19 10:29 [facility] [id number]) Hip Goniometric Range of Motion Hip Left Passive Hip ROM WFL Yes Right Active Hip ROM WFL Yes Hip ROM Limitations Comments limited strength doesn't allow for full AROM Knee Goniometric Range of Motion Knee Left Knee ROM WFL No Flexion Active (degrees) 20 Flexion Passive (degrees) 90 Extension Active (degrees) 30 Extension Passive (degrees) 0 Right Knee ROM WFL Yes Knee ROM Limitations Knee ROM Limitations Muscle Weakness Muscle Tone Swelling Comments heaviness of leg due to lymphedema Ankle and Foot Goniometric Range of Motion Ankle and Foot Left Passive Ankle/Foot ROM WFL No Dorsiflexion with Knee Flexed 0 Dorsiflexion with Knee Extended 0 Plantarflexion 35 Inversion 10 Eversion 10 Right Active Ankle/Foot ROM WFL No Dorsiflexion with Knee Flexed 5 Dorsiflexion with Knee Extended 0 Plantarflexion 45 Inversion 20 Eversion 10 Ankle and Foot ROM Limitations ROM Limitations Soft Tissue Tightness Swelling Comments no active movement left ankle. PT-OP-M Strength Start: 03/14/19 14:30 Freq: Status: Active Protocol: Document 03/14/19 14:30 [facility] (Rec: 03/15/19 10:29 [facility] [id number]) Hip Strength Hip Manual Muscle Testing Left Flexion (L2) 2- Poor- Extension (S1) 2- Poor- Abduction 2- Poor- Adduction 2- Poor- External Rotation 2+ Poor+ Right Flexion (L2) 3+ Fair+ Extension (S1) 2+ Poor+ Abduction 3- Fair- Adduction 3+ Fair+ External Rotation 3 Fair Internal Rotation 3+ Fair+ Knee Strength Knee Manual Muscle Testing Left Flexion (S2) 2+ Poor+ Extension (L3) 2+ Poor+ Right Flexion (S2) 4 Good Extension (L3) 4 Good Ankle/Foot Strength Ankle and Foot Manual Muscle Testing Left Dorsiflexion (L4) 0 Zero Plantarflexion (S1) 0 Zero Inversion 0 Zero Eversion (S1) 0 Zero Right Dorsiflexion (L4) 3+ Fair+ Plantarflexion (S1) 3+ Fair+ Inversion 3+ Fair+ Eversion (S1) 3+ Fair+ PT-OP-N Lymphedema Start: 03/14/19 14:30 Freq: Status: Active Protocol: Document 03/14/19 14:30 [facility] (Rec: 03/15/19 10:29 [facility] [id number]) Lymphedema Measurements Lower Extremity Circumference Measurements Left MT Heads 41.5 cm Medial Malleolus 41.7 cm 10 cm From Medial Malleolus 46 cm 20 cm From Medial Malleolus 63.5 cm 30 cm From Medial Malleolus 74.5 cm 40 cm From Medial Malleolus 67.8 cm 50 cm From Medial Malleolus 79.5 cm 60 cm From Medial Malleolus 84.3 cm Right MT Heads 32 cm Medial Malleolus 30.4 cm 10 cm From Medial Malleolus 34.4 cm 20 cm From Medial Malleolus 46.7 cm 30 cm From Medial Malleolus 58.3 cm 40 cm From Medial Malleolus 63 cm 50 cm From Medial Malleolus 70 cm 60 cm From Medial Malleolus 79.9 cm PT-OP-Q Treatments Start: 03/14/19 14:30 Freq: Status: Active Protocol: Document 03/14/19 14:30 [facility] (Rec: 03/15/19 14:23 [facility] [id number]) Lymphedema Treatment Lymphedema Wrapping Body Location left LE Materials Artiflex and Comprilan to left LE Patient Education Other need for elevation, consistent compression. PT-OP-T Assessment and Plan Start: 03/14/19 14:30 Freq: Status: Active Protocol: Document 03/14/19 14:30 [facility] (Rec: 03/15/19 14:23 [facility] [id number]) Physical Therapy Assessment Rehab Potential Rehabilitation Potential Fair Evaluation Complexity Number of Personal Factors/Comorbidities 3 or More Number of Body Systems Impaired 4 or More Clinical Presentation at Evaluation Unstable Impairments Impairments Edema Functional Mobility Pain ROM Strength Goals Pain Impairment pain left LE Jail Goal (LTG) Decrease pain left LE 50% to improve tolerance for functional mobility LTG Duration 06/14/19 functional mobility Jail Goal (LTG) Patient to be safe and independent with all household transfers and bed mobility including ability to lift left LE in and out of bed independently. LTG Duration 06/14/19 LE strength deficits Short Term Goal (STG) Initiate LE strengthening exercises Jail Goal (LTG) Improve LE strength by at least 1/2 grade, patient to be independent with HEP for purposes of strengthening. Education of caregiver as necessary and possible LTG Duration 06/14/19 LE ROM deficits Short Term Goal (STG) Instruct in sequential lymphedema ROM exercise program and issue written instructions STG Duration 4 wks Water Supervisor Goal (LTG) Improve ROM natacha LE's to WNL, patient to be independent with sequential lymphedema exercises. Education of caregiver as necessary and possible LTG Duration 06/14/19 Lymphedema Impairment lymphedema natacha LE's left greater than right Jail Goal (LTG) Decrease lymphedema to stable level (no increase or decrease > 1 cm over the course of 1 wk) and have patient fit with appropriate compression garment/wraps for self- management. Consider pneumatic pump for lymphedema reduction. LTG Duration 06/14/19 Assessment Summary Assessment Patient presents with severe lymphedema left LE, moderate in right. Weaping of fluid and numerous fluid-filled pustules left LE, a few on right. No redness or increased warmth noted. Complicating the lymphedema is prior left LE fracture and CVA with hemiparesis left LE which minimizes the muscular pump effect on lymphatic fluid . Patient is obese, no regular exercise routine, and uses power wheelchair for mobility. At this time patient is unable to elevate his LE's through use of w/c elevating legrests and tilt in space function due to waiting for new wheelchair. His Farrow wraps for his LE's are worn out and unusable. He would benefit for physical therapy to address his lymphedema through lymphedema wrapping initially with short -stretch bandages while we work to obtain new Farrow wraps, pneumatic pump, sequential lymphedema exercises. At this time can only perform manual lymphatic drainage right LE due to weaping of fluid left LE. I will contact his porter sample case to determine insurance coverage and appropriate avenue for obtaining compression wraps for this patient. Would recommend education of his caregivers in wrapping technique. Physical Therapy Plan Frequency and Duration Frequency of Treatment 3x/Week Duration of Treatment 12 wks Plan of Care Start Date 03/14/19 Plan of Care End Date 06/14/19 Therapeutic Interventions Therapeutic Interventions Home Exercise Program Lymphedema Management Manual Therapy Patient/Caregiver Education Self-Care/Home Management Therapeutic Exercises Next Visit Focus/Plan Next Note Type Treatment Note Next Visit Plan Pneumatic pump to left LE, MLD right LE, sequential lymphedema exercises natacha LE's, lymphedema wrapping bilateral LE's.
--- NOTE | 2019-03-15 14:25 | PT.OPPOC ---
Current Diagnoses Lymphedema, not elsewhere classified (03/14/19) Pain in left lower leg (03/14/19) Weakness (03/14/19) Other reduced mobility (03/14/19) Provider Visit Care Team Role Provider Type Hi Carson MD Family Provider Non-Staff Primary Care Provider Specialty: Family Practice Address: [place], [address] Email: Anh Wagoner DPM Attending Provider Non-Staff Specialty: Podiatry Address: [address] [place] [address], [address] Email: Plan Of Care PT-OP-T Assessment and Plan Start: 03/14/19 14:30 Freq: Status: Active Protocol: Document 03/14/19 14:30 [facility] (Rec: 03/15/19 14:23 [facility]AK [id number]) Physical Therapy Assessment Rehab Potential Rehabilitation Potential Fair Evaluation Complexity Number of Personal Factors/Comorbidities 3 or More Number of Body Systems Impaired 4 or More Clinical Presentation at Evaluation Unstable Impairments Impairments Edema Functional Mobility Pain ROM Strength Goals Pain Impairment pain left LE Skilled Nursing Goal (LTG) Decrease pain left LE 50% to improve tolerance for functional mobility LTG Duration 06/14/19 functional mobility Special Effects Person Goal (LTG) Patient to be safe and independent with all household transfers and bed mobility including ability to lift left LE in and out of bed independently. LTG Duration 06/14/19 LE strength deficits Short Term Goal (STG) Initiate LE strengthening exercises Skilled Nursing Goal (LTG) Improve LE strength by at least 1/2 grade, patient to be independent with HEP for purposes of strengthening. Education of caregiver as necessary and possible LTG Duration 06/14/19 LE ROM deficits Short Term Goal (STG) Instruct in sequential lymphedema ROM exercise program and issue written instructions STG Duration 4 wks Special Effects Person Goal (LTG) Improve ROM natacha LE's to WNL, patient to be independent with sequential lymphedema exercises. Education of caregiver as necessary and possible LTG Duration 06/14/19 Lymphedema Impairment lymphedema natacha LE's left greater than right Special Effects Person Goal (LTG) Decrease lymphedema to stable level (no increase or decrease > 1 cm over the course of 1 wk) and have patient fit with appropriate compression garment/wraps for self- management. Consider pneumatic pump for lymphedema reduction. LTG Duration 06/14/19 Assessment Summary Assessment Patient presents with severe lymphedema left LE, moderate in right. Weaping of fluid and numerous fluid-filled pustules left LE, a few on right. No redness or increased warmth noted. Complicating the lymphedema is prior left LE fracture and CVA with hemiparesis left LE which minimizes the muscular pump effect on lymphatic fluid . Patient is obese, no regular exercise routine, and uses power wheelchair for mobility. At this time patient is unable to elevate his LE's through use of w/c elevating legrests and tilt in space function due to waiting for new wheelchair. His Farrow wraps for his LE's are worn out and unusable. He would benefit for physical therapy to address his lymphedema through lymphedema wrapping initially with short -stretch bandages while we work to obtain new Farrow wraps, pneumatic pump, sequential lymphedema exercises. At this time can only perform manual lymphatic drainage right LE due to weaping of fluid left LE. I will contact his corrections caseworker to determine insurance coverage and appropriate avenue for obtaining compression wraps for this patient. Would recommend education of his caregivers in wrapping technique. Physical Therapy Plan Frequency and Duration Frequency of Treatment 3x/Week Duration of Treatment 12 wks Plan of Care Start Date 03/14/19 Plan of Care End Date 06/14/19 Therapeutic Interventions Therapeutic Interventions Home Exercise Program Lymphedema Management Manual Therapy Patient/Caregiver Education Self-Care/Home Management Therapeutic Exercises Next Visit Focus/Plan Next Note Type Treatment Note Next Visit Plan Pneumatic pump to left LE, MLD right LE, sequential lymphedema exercises natacha LE's, lymphedema wrapping bilateral LE's. Plan of Care Dates Plan of Care Start Date 03/14/19 Plan of Care End Date 06/14/19 Please Sign and Return: I have reviewed this Plan of Care and certify that the skilled therapy services above are required to meet the patient?s needs. Physician Signature Date Printed Name and Credentials Clinical Instructor Signature Printed Name and Credentials
--- NOTE | 2019-03-28 10:23 | PT.OPDS ---
Current Diagnoses Lymphedema, not elsewhere classified (03/14/19) Pain in left lower leg (03/14/19) Weakness (03/14/19) Other reduced mobility (03/14/19) Provider Visit Care Team Role Provider Type Hi Carson MD Family Provider Non-Staff Primary Care Provider Specialty: Family Practice Address: [place], [address] Email: Anh Wagoner DPM Attending Provider Non-Staff Specialty: Podiatry Address: [address] [place] [address], [id number] Email: Visit Number Visit Number 1 Discharge Summary PT-OP-B Current Condition Start: 03/14/19 14:30 Freq: Status: Active Protocol: Document 03/14/19 14:30 [facility] (Rec: 03/14/19 17:16 [facility] [id number]) Current Condition History of Current Condition Onset Date 6 yrs Current Complaints lymphedema natacha LE's left greater than right History of Current Condition Patient presents with lymphedema bilateral LE's right greater than left which he reports started approx 6 yrs ago with gradual worsening . This is complicated by left UE and LE hemiparesis from CVA as well as reported left LE fracture from fall 10 yrs ago. Patient reports he has a caregiver 4 hrs per day through [facility], private caregiver who has previously done wrapping of his legs. Poor activity level, unable to ambulate, doesn't perform any regular exercise. Patient sister highly involved from a distance with patient' s care; frequent phone calls to wound care and PT department including today. Prior Treatments and Tests Lymphedema wraps; has used Farrow wraps which are now worn out, unable to be used. Patient reports his case loader operator is ordering new wraps for him, but sister reports case loader operator unable to do this and requests PT assist with obtaining wraps. Lymphedema pump previously denied Lymphatic massage; patient reports he previously refused due to feeling uncomfortable with massage, receptive to it now. Use of power wheelchair with tilt and elevating legrests; patient reports tilt and elevating legrests not working for past 2 1/2 months, no power wheelchair today due to patient reporting he forgot to charge last night. Unable to elevate his legs. Per sister new w/c on order. Treatment Goals Patient/Caregiver Goals Decrease his lymphedema, obtain new wraps, improve his mobility to allow him to stay in his home. Prior Functional Status Baseline Function- ADL's Needs Assist Baseline Function- Mobility Needs Assist Baseline Function- Gait unable Baseline Function- Work/School unable Baseline Function- Recreation/Hobbies watches TV Baseline Function- Other No regular exercise, sleeps in chair. Current Functional Impairments (Reported) Functional Limitations- ADL's increased lymphedema making it difficult to lift his leg or use functionally with transfers Functional Limitations- Mobility/Gait unable to ambulate. Uses quad cane for transfers. Unable to lift his left LE onto a bed , sleeps in chair Functional Limitations- Work/School unable Functional Limitations- Recreation/ watches TV Hobbies Personal Factors Other Personal Factors That May Effect obesity, low activity level Therapy/Recovery PT-OP-C Subjective Start: 03/14/19 14:30 Freq: Status: Active Protocol: Document 03/14/19 14:30 [facility] (Rec: 03/15/19 10:29 [facility] [id number]) Patient Questionnaires Lymphedema Life Impact Score Lymphedema Score not completed today OP-PT Pain Assessment Pain Assessment Grid Paper Pain Assessment Grid Completed Yes Location left foot and lower leg Intensity 6 Scale Used Numeric (1 - 10) Description Aching Pressure Shooting Tender Throbbing Description- Other pain with palpation and movement Pain Alleviating Factors None Home Pain Medication Use Pain Medications Used Yes: unable to name except medical marijuana PT-OP-G Mobility & Gait Start: 03/14/19 14:30 Freq: Status: Active Protocol: Document 03/14/19 14:30 [facility] (Rec: 03/15/19 10:29 [facility] [id number]) OP Mobility Evaluation Bed Mobility Rolling mod assist Supine to and from Sit mod assist Transfers Sit to Stand min assist with multiple attempts from manual w/c and PT plinth at same height Bed to Chair Transfers SBA Car Transfers NA Floor Transfers NA Functional Movements Other Functional Movements Unable to lift his left LE into the bed Wheelchair Management Assessment Details To PT today in manual w/c, needed mod assist for w/c mobility. Had no legrest on left OP Gait Assessment Factors Limiting Gait Function Factors Limiting Gait Function Abnormal Tonal Influences Decreased Strength PT-OP-K Range of Motion Start: 03/14/19 14:30 Freq: Status: Active Protocol: Document 03/14/19 14:30 [facility] (Rec: 03/15/19 10:29 [facility] [id number]) Hip Goniometric Range of Motion Hip Left Passive Hip ROM WFL Yes Right Active Hip ROM WFL Yes Hip ROM Limitations Comments limited strength doesn't allow for full AROM Knee Goniometric Range of Motion Knee Left Knee ROM WFL No Flexion Active (degrees) 20 Flexion Passive (degrees) 90 Extension Active (degrees) 30 Extension Passive (degrees) 0 Right Knee ROM WFL Yes Knee ROM Limitations Knee ROM Limitations Muscle Weakness Muscle Tone Swelling Comments heaviness of leg due to lymphedema Ankle and Foot Goniometric Range of Motion Ankle and Foot Left Passive Ankle/Foot ROM WFL No Dorsiflexion with Knee Flexed 0 Dorsiflexion with Knee Extended 0 Plantarflexion 35 Inversion 10 Eversion 10 Right Active Ankle/Foot ROM WFL No Dorsiflexion with Knee Flexed 5 Dorsiflexion with Knee Extended 0 Plantarflexion 45 Inversion 20 Eversion 10 Ankle and Foot ROM Limitations ROM Limitations Soft Tissue Tightness Swelling Comments no active movement left ankle. PT-OP-M Strength Start: 03/14/19 14:30 Freq: Status: Active Protocol: Document 03/14/19 14:30 [facility] (Rec: 03/15/19 10:29 [facility] [id number]) Hip Strength Hip Manual Muscle Testing Left Flexion (L2) 2- Poor- Extension (S1) 2- Poor- Abduction 2- Poor- Adduction 2- Poor- External Rotation 2+ Poor+ Right Flexion (L2) 3+ Fair+ Extension (S1) 2+ Poor+ Abduction 3- Fair- Adduction 3+ Fair+ External Rotation 3 Fair Internal Rotation 3+ Fair+ Knee Strength Knee Manual Muscle Testing Left Flexion (S2) 2+ Poor+ Extension (L3) 2+ Poor+ Right Flexion (S2) 4 Good Extension (L3) 4 Good Ankle/Foot Strength Ankle and Foot Manual Muscle Testing Left Dorsiflexion (L4) 0 Zero Plantarflexion (S1) 0 Zero Inversion 0 Zero Eversion (S1) 0 Zero Right Dorsiflexion (L4) 3+ Fair+ Plantarflexion (S1) 3+ Fair+ Inversion 3+ Fair+ Eversion (S1) 3+ Fair+ PT-OP-N Lymphedema Start: 03/14/19 14:30 Freq: Status: Active Protocol: Document 03/14/19 14:30 [facility] (Rec: 03/15/19 10:29 [facility] [id number]) Lymphedema Measurements Lower Extremity Circumference Measurements Left MT Heads 41.5 cm Medial Malleolus 41.7 cm 10 cm From Medial Malleolus 46 cm 20 cm From Medial Malleolus 63.5 cm 30 cm From Medial Malleolus 74.5 cm 40 cm From Medial Malleolus 67.8 cm 50 cm From Medial Malleolus 79.5 cm 60 cm From Medial Malleolus 84.3 cm Right MT Heads 32 cm Medial Malleolus 30.4 cm 10 cm From Medial Malleolus 34.4 cm 20 cm From Medial Malleolus 46.7 cm 30 cm From Medial Malleolus 58.3 cm 40 cm From Medial Malleolus 63 cm 50 cm From Medial Malleolus 70 cm 60 cm From Medial Malleolus 79.9 cm PT-OP-T Assessment and Plan Start: 03/14/19 14:30 Freq: Status: Active Protocol: Document 03/28/19 10:22 [facility] (Rec: 03/28/19 10:23 [facility] [id number]) Physical Therapy Plan Discharge Physical Therapy Discharge Reasons Change in Medical Status Discharge Comments Patient only seen for PT 1x for evaluation. Compression garments not ordered due to patient medical status, potential for change in measurements.
== END 2019-03-28 14:59 | disposition home or self-care (01) ==
LOC: PHYS 14:01
PROVIDERS: Family Provider Family Medicine; PCP Family Medicine; Visit Provider Podiatrist Primary Podiatric Medicine
DX: I89.0 Lymphedema, not elsewhere classified (principal); R53.1 Weakness; Z74.09 Other reduced mobility; M79.662 Pain in left lower leg
CPT/HCPCS: 97140; 97163

== ENCOUNTER → 2019-03-14 14:50 | Outpatient (CLI) | payer MEDICARE, MEDICAID, SELFPAY | PROVIDERS: Family Provider Family Medicine; PCP Family Medicine; Visit Provider Podiatrist Primary Podiatric Medicine | DX: I89.0 Lymphedema, not elsewhere classified (principal); I87.2 Venous insufficiency (chronic) (peripheral); R60.0 Localized edema; L60.0 Ingrowing nail; E88.2 Lipomatosis, not elsewhere classified | CPT/HCPCS: 11765; 99203; 99212 ==

== ENCOUNTER → 2019-04-12 13:01 | Outpatient (CLI) | payer MEDICARE, MEDICAID, SELFPAY | PROVIDERS: Family Provider Physician Assistant; PCP Physician Assistant; Visit Provider Family Medicine | DX: L89.313 Pressure ulcer of right buttock, stage 3 (principal); I69.959 Hemiplegia and hemiparesis following unspecified cerebrovascular disease affecting unspecified side; E11.622 Type 2 diabetes mellitus with other skin ulcer | CPT/HCPCS: 11042; 87070; 87075; 87205; 99213; 99214 ==

== ENCOUNTER → 2019-04-19 10:54 | Outpatient (CLI) | payer MEDICARE, MEDICAID, SELFPAY | PROVIDERS: Family Provider Physician Assistant; PCP Physician Assistant; Visit Provider Family Medicine | DX: L89.313 Pressure ulcer of right buttock, stage 3 (principal); I69.959 Hemiplegia and hemiparesis following unspecified cerebrovascular disease affecting unspecified side; E11.622 Type 2 diabetes mellitus with other skin ulcer; I48.0 Paroxysmal atrial fibrillation; E66.01 Morbid (severe) obesity due to excess calories; R32 Unspecified urinary incontinence; R60.0 Localized edema | CPT/HCPCS: 11042 ==

== ENCOUNTER → 2019-04-26 08:39 | Outpatient (CLI) | payer MEDICARE, MEDICAID, OTHER, SELFPAY | PROVIDERS: Family Provider Physician Assistant; PCP Physician Assistant; Visit Provider Family Medicine | DX: I89.0 Lymphedema, not elsewhere classified (principal); L89.313 Pressure ulcer of right buttock, stage 3; S80.812A Abrasion, left lower leg, initial encounter; I69.959 Hemiplegia and hemiparesis following unspecified cerebrovascular disease affecting unspecified side; M79.605 Pain in left leg; R32 Unspecified urinary incontinence | CPT/HCPCS: 11042; 99213 ==

== ENCOUNTER → 2019-05-24 14:59 | Outpatient (CLI) | payer MEDICARE, MEDICAID, OTHER, SELFPAY | PROVIDERS: Family Provider Physician Assistant; PCP Physician Assistant; Visit Provider Family Medicine | DX: I87.2 Venous insufficiency (chronic) (peripheral) (principal); E11.622 Type 2 diabetes mellitus with other skin ulcer; L89.313 Pressure ulcer of right buttock, stage 3; I89.0 Lymphedema, not elsewhere classified; I69.959 Hemiplegia and hemiparesis following unspecified cerebrovascular disease affecting unspecified side; E66.01 Morbid (severe) obesity due to excess calories | CPT/HCPCS: 99213 ==

== ENCOUNTER → 2019-06-07 14:18 | Outpatient (CLI) | payer MEDICARE, OTHER, MEDICAID, SELFPAY | PROVIDERS: Family Provider Physician Assistant; PCP Physician Assistant; Visit Provider Family Medicine | DX: L89.313 Pressure ulcer of right buttock, stage 3 (principal) | CPT/HCPCS: 99213 ==

== ENCOUNTER → 2019-06-09 13:33 | Outpatient (CLI) | payer MEDICARE, OTHER, MEDICAID, SELFPAY | PROVIDERS: Family Provider Physician Assistant; PCP Physician Assistant; Visit Provider Family Medicine | DX: I87.2 Venous insufficiency (chronic) (peripheral) (principal); I89.0 Lymphedema, not elsewhere classified; L97.822 Non-pressure chronic ulcer of other part of left lower leg with fat layer exposed; L89.313 Pressure ulcer of right buttock, stage 3; I69.959 Hemiplegia and hemiparesis following unspecified cerebrovascular disease affecting unspecified side; E11.622 Type 2 diabetes mellitus with other skin ulcer | CPT/HCPCS: 87070; 87075; 87077; 87186; 87205; 97597; 99212; 99214 ==

== ENCOUNTER → 2019-06-16 10:53 | Outpatient (CLI) | payer MEDICARE, OTHER, MEDICAID, SELFPAY | PROVIDERS: Family Provider Physician Assistant; PCP Physician Assistant; Visit Provider Family Medicine | DX: I87.2 Venous insufficiency (chronic) (peripheral) (principal); I89.0 Lymphedema, not elsewhere classified; L89.313 Pressure ulcer of right buttock, stage 3; I69.959 Hemiplegia and hemiparesis following unspecified cerebrovascular disease affecting unspecified side; E11.622 Type 2 diabetes mellitus with other skin ulcer; L08.9 Local infection of the skin and subcutaneous tissue, unspecified; L97.822 Non-pressure chronic ulcer of other part of left lower leg with fat layer exposed | CPT/HCPCS: 11042; 99212; 99214 ==

== ENCOUNTER → 2019-06-16 12:21 | Outpatient (CLI) | payer MEDICARE, MEDICAID, SELFPAY ==
[2019-06-16 13:17] LABS: Blood Urea Nitrogen 15 mg/dL (9-20); Calcium 8.8 mg/dL (8.4-10.2); Carbon Dioxide 28 mmol/L (22-32); Chloride 99 mmol/L (98-107); Estimated Glomerular Filt Rate > 60.0 mL/min (>60); Glucose 209 mg/dL (70-100); HEMOLYSIS < 15 (0-50); Potassium 3.8 mmol/L (3.4-5.1); Sodium 139 mmol/L (137-145)
== END ==
PROVIDERS: Family Provider Physician Assistant; PCP Physician Assistant; Visit Provider Family Medicine
DX: L08.9 Local infection of the skin and subcutaneous tissue, unspecified (principal)
CPT/HCPCS: 36415; 80048

== ENCOUNTER → 2019-06-21 11:29 | Outpatient (CLI) | payer MEDICARE, MEDICAID, OTHER, SELFPAY | PROVIDERS: Family Provider Physician Assistant; PCP Physician Assistant; Visit Provider Family Medicine | DX: L89.313 Pressure ulcer of right buttock, stage 3 (principal); I89.0 Lymphedema, not elsewhere classified; I87.2 Venous insufficiency (chronic) (peripheral); E11.622 Type 2 diabetes mellitus with other skin ulcer | CPT/HCPCS: 99213; 99214 ==

== ENCOUNTER → 2019-06-21 11:37 | Outpatient (CLI) | payer MEDICARE, MEDICAID, SELFPAY ==
[2019-06-21 13:34] LABS: BUN Creatinine Ratio 15.5 (6-22); Blood Urea Nitrogen 17 mg/dL (9-20); Calcium 8.8 mg/dL (8.4-10.2); Carbon Dioxide 27 mmol/L (22-32); Chloride 101 mmol/L (98-107); Estimated Glomerular Filt Rate > 60.0 mL/min (>60); Glucose 115 mg/dL (70-100); HEMOLYSIS < 15 (0-50); Potassium 4.3 mmol/L (3.4-5.1); Sodium 138 mmol/L (137-145)
== END ==
PROVIDERS: Family Provider Physician Assistant; PCP Physician Assistant; Visit Provider Family Medicine
DX: L08.9 Local infection of the skin and subcutaneous tissue, unspecified (principal)
CPT/HCPCS: 36415; 80048

== ENCOUNTER → 2019-06-28 13:31 | Outpatient (CLI) | payer MEDICARE, MEDICAID, SELFPAY | PROVIDERS: Family Provider Physician Assistant; PCP Physician Assistant; Visit Provider Family Medicine | DX: I87.2 Venous insufficiency (chronic) (peripheral) (principal); L89.313 Pressure ulcer of right buttock, stage 3; I89.0 Lymphedema, not elsewhere classified; I69.959 Hemiplegia and hemiparesis following unspecified cerebrovascular disease affecting unspecified side; E11.622 Type 2 diabetes mellitus with other skin ulcer | CPT/HCPCS: 99213 ==

== ENCOUNTER → 2019-07-05 12:58 | Outpatient (CLI) | payer MEDICARE, MEDICAID, OTHER, SELFPAY | PROVIDERS: Family Provider Physician Assistant; PCP Physician Assistant; Visit Provider Family Medicine | DX: L89.313 Pressure ulcer of right buttock, stage 3 (principal); I89.0 Lymphedema, not elsewhere classified; E66.01 Morbid (severe) obesity due to excess calories | CPT/HCPCS: 11042; 11045 ==

== ENCOUNTER → 2019-07-12 13:03 | Outpatient (CLI) | payer MEDICARE, MEDICAID, OTHER, SELFPAY | PROVIDERS: Family Provider Physician Assistant; PCP Physician Assistant; Visit Provider Family Medicine | DX: I87.2 Venous insufficiency (chronic) (peripheral) (principal); L89.313 Pressure ulcer of right buttock, stage 3; I89.0 Lymphedema, not elsewhere classified; L97.922 Non-pressure chronic ulcer of unspecified part of left lower leg with fat layer exposed; L97.521 Non-pressure chronic ulcer of other part of left foot limited to breakdown of skin; I69.959 Hemiplegia and hemiparesis following unspecified cerebrovascular disease affecting unspecified side | CPT/HCPCS: 11042; 87070; 87075; 87077; 87186; 87205; 97597 ==

== ENCOUNTER → 2019-07-19 13:16 | Outpatient (CLI) | payer MEDICARE, MEDICAID, SELFPAY | PROVIDERS: Family Provider Physician Assistant; PCP Physician Assistant; Visit Provider Family Medicine | DX: I87.2 Venous insufficiency (chronic) (peripheral) (principal); I89.0 Lymphedema, not elsewhere classified; L89.313 Pressure ulcer of right buttock, stage 3; L97.521 Non-pressure chronic ulcer of other part of left foot limited to breakdown of skin; L08.9 Local infection of the skin and subcutaneous tissue, unspecified; I69.959 Hemiplegia and hemiparesis following unspecified cerebrovascular disease affecting unspecified side | CPT/HCPCS: 11042; 97597; 99214 ==

== ENCOUNTER → 2019-08-04 09:33 | Outpatient (CLI) | payer MEDICARE, MEDICAID, OTHER, SELFPAY | PROVIDERS: Family Provider Physician Assistant; PCP Physician Assistant; Visit Provider Family Medicine | DX: I87.2 Venous insufficiency (chronic) (peripheral) (principal); L89.313 Pressure ulcer of right buttock, stage 3; L97.529 Non-pressure chronic ulcer of other part of left foot with unspecified severity; I89.0 Lymphedema, not elsewhere classified; L08.9 Local infection of the skin and subcutaneous tissue, unspecified; I69.959 Hemiplegia and hemiparesis following unspecified cerebrovascular disease affecting unspecified side | CPT/HCPCS: 11042; 87070; 87075; 87077; 87147; 87186; 87205; 97597 ==

== ENCOUNTER → 2019-08-08 10:05 | Outpatient (CLI) | payer MEDICARE, MEDICAID, OTHER, SELFPAY | PROVIDERS: Family Provider Physician Assistant; PCP Physician Assistant; Visit Provider Family Medicine | DX: L89.313 Pressure ulcer of right buttock, stage 3 (principal); I89.0 Lymphedema, not elsewhere classified; L97.529 Non-pressure chronic ulcer of other part of left foot with unspecified severity | CPT/HCPCS: 99214 ==

== ENCOUNTER → 2019-08-12 09:39 | Outpatient (CLI) | payer MEDICARE, MEDICAID, OTHER, SELFPAY | PROVIDERS: Family Provider Physician Assistant; PCP Physician Assistant; Visit Provider Family Medicine | DX: L89.313 Pressure ulcer of right buttock, stage 3 (principal); I89.0 Lymphedema, not elsewhere classified; I87.2 Venous insufficiency (chronic) (peripheral); L97.529 Non-pressure chronic ulcer of other part of left foot with unspecified severity; I69.959 Hemiplegia and hemiparesis following unspecified cerebrovascular disease affecting unspecified side | CPT/HCPCS: 11042; 87070; 87077; 87186; 87205 ==

== ENCOUNTER → 2019-08-17 10:44 | Outpatient (CLI) | payer MEDICARE, MEDICAID, OTHER, SELFPAY | PROVIDERS: Family Provider Physician Assistant; PCP Physician Assistant; Visit Provider Family Medicine | DX: L89.313 Pressure ulcer of right buttock, stage 3 (principal); I89.0 Lymphedema, not elsewhere classified | CPT/HCPCS: 99214 ==

== ENCOUNTER → 2019-08-19 14:45 | Outpatient (CLI) | payer MEDICARE, MEDICAID, OTHER, SELFPAY | PROVIDERS: Family Provider Physician Assistant; PCP Physician Assistant; Visit Provider Family Medicine | DX: E11.622 Type 2 diabetes mellitus with other skin ulcer (principal); I87.2 Venous insufficiency (chronic) (peripheral); L89.313 Pressure ulcer of right buttock, stage 3; L97.521 Non-pressure chronic ulcer of other part of left foot limited to breakdown of skin; I89.0 Lymphedema, not elsewhere classified; L08.9 Local infection of the skin and subcutaneous tissue, unspecified; I69.959 Hemiplegia and hemiparesis following unspecified cerebrovascular disease affecting unspecified side | CPT/HCPCS: 97597; 99214 ==

== ENCOUNTER → 2019-08-24 10:55 | Outpatient (CLI) | payer MEDICARE, MEDICAID, OTHER, SELFPAY | PROVIDERS: Family Provider Physician Assistant; PCP Physician Assistant; Visit Provider Family Medicine | DX: L89.313 Pressure ulcer of right buttock, stage 3 (principal); I89.0 Lymphedema, not elsewhere classified | CPT/HCPCS: 99214 ==

== ENCOUNTER → 2019-08-30 10:44 | Outpatient (CLI) | payer MEDICARE, MEDICAID, OTHER, SELFPAY | PROVIDERS: Family Provider Physician Assistant; PCP Physician Assistant; Visit Provider Family Medicine | DX: L89.313 Pressure ulcer of right buttock, stage 3 (principal); L97.521 Non-pressure chronic ulcer of other part of left foot limited to breakdown of skin; I89.0 Lymphedema, not elsewhere classified | CPT/HCPCS: 99214 ==

== ENCOUNTER → 2019-09-02 13:00 | Outpatient (CLI) | payer MEDICARE, MEDICAID, OTHER, SELFPAY | PROVIDERS: Family Provider Physician Assistant; PCP Physician Assistant; Visit Provider Family Medicine | DX: I87.2 Venous insufficiency (chronic) (peripheral) (principal); E11.622 Type 2 diabetes mellitus with other skin ulcer; L89.313 Pressure ulcer of right buttock, stage 3; L97.521 Non-pressure chronic ulcer of other part of left foot limited to breakdown of skin; I89.0 Lymphedema, not elsewhere classified; I69.959 Hemiplegia and hemiparesis following unspecified cerebrovascular disease affecting unspecified side; L08.9 Local infection of the skin and subcutaneous tissue, unspecified | CPT/HCPCS: 97597 ==

== ENCOUNTER → 2019-09-08 08:57 | Outpatient (CLI) | payer MEDICARE, MEDICAID, OTHER, SELFPAY | PROVIDERS: Family Provider Physician Assistant; PCP Physician Assistant; Visit Provider Family Medicine | DX: I87.2 Venous insufficiency (chronic) (peripheral) (principal); E11.622 Type 2 diabetes mellitus with other skin ulcer; L89.313 Pressure ulcer of right buttock, stage 3 | CPT/HCPCS: 99212; 99213 ==

== ENCOUNTER → 2019-09-15 08:57 | Outpatient (CLI) | payer MEDICARE, MEDICAID, SELFPAY | PROVIDERS: Family Provider Physician Assistant; PCP Physician Assistant; Visit Provider Family Medicine | DX: L89.313 Pressure ulcer of right buttock, stage 3 (principal); I69.959 Hemiplegia and hemiparesis following unspecified cerebrovascular disease affecting unspecified side; I89.0 Lymphedema, not elsewhere classified; I87.2 Venous insufficiency (chronic) (peripheral); L97.521 Non-pressure chronic ulcer of other part of left foot limited to breakdown of skin; L08.9 Local infection of the skin and subcutaneous tissue, unspecified; E11.622 Type 2 diabetes mellitus with other skin ulcer | CPT/HCPCS: 11042; 87070; 87077; 87102; 87185; 87186; 87205 ==

== ENCOUNTER → 2019-09-22 09:31 | Outpatient (CLI) | payer MEDICARE, MEDICAID, OTHER, SELFPAY | PROVIDERS: Family Provider Physician Assistant; PCP Physician Assistant; Visit Provider Family Medicine | DX: E11.622 Type 2 diabetes mellitus with other skin ulcer (principal); L89.313 Pressure ulcer of right buttock, stage 3; L97.521 Non-pressure chronic ulcer of other part of left foot limited to breakdown of skin; I89.0 Lymphedema, not elsewhere classified | CPT/HCPCS: 97597 ==

== ENCOUNTER → 2019-09-26 13:00 | Outpatient (CLI) | payer MEDICARE, MEDICAID, OTHER, SELFPAY | PROVIDERS: Family Provider Physician Assistant; PCP Physician Assistant; Visit Provider Family Medicine | DX: L89.313 Pressure ulcer of right buttock, stage 3 (principal); L97.521 Non-pressure chronic ulcer of other part of left foot limited to breakdown of skin; I89.0 Lymphedema, not elsewhere classified | CPT/HCPCS: 99213 ==

== ENCOUNTER → 2019-09-30 14:01 | Outpatient (CLI) | payer MEDICARE, MEDICAID, SELFPAY | PROVIDERS: Family Provider Physician Assistant; PCP Physician Assistant; Referring Provider Physician Assistant; Visit Provider Family Medicine | DX: I89.0 Lymphedema, not elsewhere classified (principal); L89.313 Pressure ulcer of right buttock, stage 3; R60.0 Localized edema | CPT/HCPCS: 99213 ==

== ENCOUNTER → 2019-10-19 14:37 | Outpatient (CLI) | payer MEDICARE, MEDICAID, SELFPAY | PROVIDERS: Family Provider Physician Assistant; PCP Physician Assistant; Visit Provider Family Medicine | DX: E11.628 Type 2 diabetes mellitus with other skin complications (principal); I89.0 Lymphedema, not elsewhere classified; I87.2 Venous insufficiency (chronic) (peripheral) | CPT/HCPCS: 87070; 87075; 87077; 87185; 87186; 87205; 99213; 99214 ==

== ENCOUNTER → 2019-11-10 14:37 | Outpatient (CLI) | payer MEDICARE, OTHER, MEDICAID, SELFPAY | PROVIDERS: Family Provider Physician Assistant; PCP Nurse Practitioner Family; Referring Provider Family Medicine; Visit Provider Family Medicine | DX: I89.0 Lymphedema, not elsewhere classified (principal); L97.521 Non-pressure chronic ulcer of other part of left foot limited to breakdown of skin; I87.2 Venous insufficiency (chronic) (peripheral); I69.959 Hemiplegia and hemiparesis following unspecified cerebrovascular disease affecting unspecified side; E11.622 Type 2 diabetes mellitus with other skin ulcer; L08.9 Local infection of the skin and subcutaneous tissue, unspecified | CPT/HCPCS: 99214 ==

== ENCOUNTER → 2019-12-08 09:40 | Outpatient (CLI) | payer MEDICARE, OTHER, MEDICAID, SELFPAY | PROVIDERS: Family Provider Physician Assistant; PCP Nurse Practitioner Family; Referring Provider Nurse Practitioner Family; Visit Provider Family Medicine | DX: I89.0 Lymphedema, not elsewhere classified (principal); L97.521 Non-pressure chronic ulcer of other part of left foot limited to breakdown of skin; L89.313 Pressure ulcer of right buttock, stage 3; I87.2 Venous insufficiency (chronic) (peripheral); E11.622 Type 2 diabetes mellitus with other skin ulcer | CPT/HCPCS: 99214 ==

== ENCOUNTER → 2020-01-17 09:24 | Outpatient (CLI) | payer MEDICARE, OTHER, MEDICAID, SELFPAY | PROVIDERS: Family Provider Physician Assistant; PCP Nurse Practitioner Family; Referring Provider Nurse Practitioner Family; Visit Provider Family Medicine | DX: E11.621 Type 2 diabetes mellitus with foot ulcer (principal); I89.0 Lymphedema, not elsewhere classified; L97.521 Non-pressure chronic ulcer of other part of left foot limited to breakdown of skin; L89.313 Pressure ulcer of right buttock, stage 3; I87.2 Venous insufficiency (chronic) (peripheral); L08.9 Local infection of the skin and subcutaneous tissue, unspecified; R60.0 Localized edema | CPT/HCPCS: 99213 ==

== ENCOUNTER → 2020-01-24 10:06 | Outpatient (CLI) | payer MEDICARE, OTHER, MEDICAID, SELFPAY | PROVIDERS: Family Provider Physician Assistant; PCP Nurse Practitioner Family; Referring Provider Nurse Practitioner Family; Visit Provider Family Medicine | DX: I89.0 Lymphedema, not elsewhere classified (principal); I87.2 Venous insufficiency (chronic) (peripheral); L97.521 Non-pressure chronic ulcer of other part of left foot limited to breakdown of skin; L08.9 Local infection of the skin and subcutaneous tissue, unspecified; D72.829 Elevated white blood cell count, unspecified | CPT/HCPCS: 99214 ==

== ENCOUNTER → 2020-02-13 14:13 | Outpatient (CLI) | payer MEDICARE, OTHER, MEDICAID, SELFPAY | PROVIDERS: Family Provider Physician Assistant; PCP Nurse Practitioner Family; Referring Provider Nurse Practitioner Family; Visit Provider Family Medicine | DX: I89.0 Lymphedema, not elsewhere classified (principal); L97.521 Non-pressure chronic ulcer of other part of left foot limited to breakdown of skin; I87.2 Venous insufficiency (chronic) (peripheral); L08.9 Local infection of the skin and subcutaneous tissue, unspecified; Z79.2 Long term (current) use of antibiotics | CPT/HCPCS: 99213; 99214 ==

== ENCOUNTER → 2020-03-05 13:52 | Outpatient (CLI) | payer MEDICARE, OTHER, MEDICAID, SELFPAY | PROVIDERS: Family Provider Physician Assistant; PCP Nurse Practitioner Family; Referring Provider Nurse Practitioner Family; Visit Provider Family Medicine | DX: I89.0 Lymphedema, not elsewhere classified (principal); L97.521 Non-pressure chronic ulcer of other part of left foot limited to breakdown of skin; I87.2 Venous insufficiency (chronic) (peripheral); L08.9 Local infection of the skin and subcutaneous tissue, unspecified; Z79.2 Long term (current) use of antibiotics | CPT/HCPCS: 97597; 97598; 99213 ==

== ENCOUNTER → 2020-03-21 09:46 | Outpatient (CLI) | payer MEDICARE, MEDICAID, SELFPAY | PROVIDERS: Family Provider Physician Assistant; PCP Nurse Practitioner Family; Referring Provider Nurse Practitioner Family; Visit Provider Family Medicine | DX: I89.0 Lymphedema, not elsewhere classified (principal); L97.521 Non-pressure chronic ulcer of other part of left foot limited to breakdown of skin; I87.2 Venous insufficiency (chronic) (peripheral); L08.9 Local infection of the skin and subcutaneous tissue, unspecified; Z79.2 Long term (current) use of antibiotics | CPT/HCPCS: 99212; 99213 ==

== ENCOUNTER → 2020-03-28 14:32 | Outpatient (CLI) | payer MEDICARE, MEDICAID, OTHER, SELFPAY | PROVIDERS: Family Provider Physician Assistant; PCP Nurse Practitioner Family; Referring Provider Nurse Practitioner Family; Visit Provider Family Medicine | DX: I89.0 Lymphedema, not elsewhere classified (principal); L97.521 Non-pressure chronic ulcer of other part of left foot limited to breakdown of skin; I87.2 Venous insufficiency (chronic) (peripheral); L08.9 Local infection of the skin and subcutaneous tissue, unspecified; Z79.2 Long term (current) use of antibiotics | CPT/HCPCS: 95806; 99212; 99214 ==

== ENCOUNTER → 2020-04-04 13:21 | Outpatient (CLI) | payer MEDICARE, MEDICAID, OTHER, SELFPAY | PROVIDERS: Family Provider Physician Assistant; PCP Nurse Practitioner Family; Referring Provider Nurse Practitioner Family; Visit Provider Family Medicine | DX: I89.0 Lymphedema, not elsewhere classified (principal); L97.521 Non-pressure chronic ulcer of other part of left foot limited to breakdown of skin; I87.2 Venous insufficiency (chronic) (peripheral); L08.9 Local infection of the skin and subcutaneous tissue, unspecified; Z79.2 Long term (current) use of antibiotics | CPT/HCPCS: 99213 ==

== ENCOUNTER 2020-04-10 14:30 | Outpatient (RCR) | payer MEDICARE, MEDICAID, OTHER, SELFPAY ==
--- NOTE | 2019-04-25 14:30 | PT.OIE ---
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 (04/25/19) Obesity, unspecified (04/25/19) Hemiplegia, unspecified affecting left nondominant side (04/25/19) Lymphedema, not elsewhere classified (04/25/19) Weakness (04/25/19) Past Medical History (Last Reviewed 01/27/19 @ 11:30 by Ingrid De Santiago MD) Asthma (Acute) Hyperlipidemia (Acute) HTN (hypertension) (Acute) Obesity (Acute) Lymphedema (Acute) Provider Visit Care Team Role Provider Type Asia Mario PA-C Family Provider Non-Staff Primary Care Provider Specialty: Nursing Address: [address] [place] [address], [place], [address] Fax: Email: Ankush Wilburn MD Attending Provider Non-Staff Specialty: Family Practice Address: [facility] [employer] [facility], [address], [place], [address] Email: Physical Therapy Initial Evaluation PT-OP-A Visit Information Start: 04/25/19 14:28 Freq: Status: Active Protocol: Document 04/25/19 14:30 [facility] (Rec: 04/26/19 09:40 [facility] [id number]) Out-Patient Physical Therapy Visit Information Visit Information Visit Type Initial Evaluation Visit Start Time 14:30 Visit Stop Time 15:58 Total Visit Minutes 88 Visit Number 1 Evaluation Information Evaluation Date 04/25/19 PT-OP-B Current Condition Start: 04/25/19 14:28 Freq: Status: Active Protocol: Document 04/25/19 14:30 [facility] (Rec: 04/26/19 09:40 [facility] [id number]) Current Condition History of Current Condition Onset Date 20+ years Current Complaints lymphedema bilateral LE's left greater than right History of Current Condition Patient reports 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 Since that time he has developed lymphedema, been treated for cellulitis and LE wounds. Most recently he was in the hospital from 03/21/19 to 04/05/19 with sepsis, septic shock, and ARF from LE cellulitis. Additionally he was found to have a right ischial pressure ulcer. It was recommended that he go for inpatient rehab but he refused and has been discharged home. He has a caregiver approximately 6 hrs per day. Patient has a history of using Farrow Wraps for his lymphedema but these are worn out and patient has not been able to use for some time. Has not used a lymphedema pump. He presents today for physical therapy reporting a new wound on his left LE. He uses a power wheelchair with tilt in space and elevating legrests . Able to take a few steps using large -based quad cane on right. Prior Treatments and Tests Farrow wraps Current treatment in wound care for ischial pressure ulcer Wound care nurse consulted today for new wound anterior left lower leg; she dressed with bandage Treatment Goals Patient/Caregiver Goals Decrease lymphedema, improve mobility, obtain new Farrow Wraps, be able to self-manage lymphedema with assist of caregiver Prior Functional Status Baseline Function- ADL's Needs Assist Baseline Function- Mobility Needs Assist Baseline Function- Gait 5 ft with LBQC, CGA Baseline Function- Recreation/Hobbies none, reports watching TV Baseline Function- Other low activity level Current Functional Impairments (Reported) Functional Limitations- ADL's Decreased ability to transfer and perform bed mobility due to weight of legs Functional Limitations- Mobility/Gait Decreased ability to ambulate due to weight of legs Functional Limitations- Work/School disabled PT-OP-C Subjective Start: 04/25/19 14:28 Freq: Status: Active Protocol: Document 04/25/19 14:30 [facility] (Rec: 04/26/19 09:40 [facility] [id number]) Patient Questionnaires Lymphedema Life Impact Score Lymphedema Score not completed this date OP-PT Pain Assessment Pain Assessment Grid Paper Pain Assessment Grid Completed Yes PT-OP-G Mobility & Gait Start: 04/25/19 14:28 Freq: Status: Active Protocol: Document 04/25/19 14:30 [facility] (Rec: 04/26/19 09:40 [facility] [id number]) OP Mobility Evaluation Bed Mobility Rolling mod assist Supine to and from Sit mod assist Transfers Sit to Stand min assist from high surface Wheelchair Management Type of Wheelchair power w/c Special Equipment elevating legrests, tilt in space, small air mattress Assessment Details Roho cushion has been ordered OP Gait Assessment Gait Gait Assistance Required: Contact Guard Assist Distance (Feet) 5 Assistive Devices Assistive Device Large Based Quad Cane Orthotic/Prosthetic Devices or Brace: No Gait Deviations General Gait Pattern Decreased Stride Length Decreased Feet Clearance Flexed Trunk Wide Based Gait Factors Limiting Gait Function Factors Limiting Gait Function Decreased Strength Comments Gait Comments tends to slide left LE Stair Climbing Evaluation Comments Stair Climbing Comments unable PT-OP-K Range of Motion Start: 04/25/19 14:28 Freq: Status: Active Protocol: Document 04/25/19 14:30 [facility] (Rec: 04/26/19 09:40 [facility] [id number]) Hip Goniometric Range of Motion Hip natacha Hip ROM WFL No Hip ROM Limitations Hip ROM Limitations Muscle Weakness Swelling Knee Goniometric Range of Motion Knee natacha Knee ROM WFL No Knee ROM Limitations Knee ROM Limitations Muscle Weakness Swelling Ankle and Foot Goniometric Range of Motion Ankle and Foot natacha Ankle/Foot ROM WFL No Ankle and Foot ROM Limitations ROM Limitations Muscle Weakness Swelling PT-OP-M Strength Start: 04/25/19 14:28 Freq: Status: Active Protocol: Document 04/25/19 14:30 [facility] (Rec: 04/26/19 09:40 [facility] [id number]) Hip Strength Hip Manual Muscle Testing natacha Comments patient unable to lift against gravity, requires assistance lifting left LE on/off bed Knee Strength Knee Manual Muscle Testing natacha Reason Not Measured Behavior Comments able to extend natacha knees against gravity Ankle/Foot Strength Ankle and Foot Manual Muscle Testing natacha Comments lacking full active motion due to swelling PT-OP-N Lymphedema Start: 04/25/19 14:28 Freq: Status: Active Protocol: Document 04/25/19 14:30 [facility] (Rec: 04/26/19 13:38 [facility] [id number]) Lymphedema Measurements Lower Extremity Circumference Measurements Left MT Heads 35.5 cm Medial Malleolus 35.4 cm 10 cm From Medial Malleolus 39.6 cm 20 cm From Medial Malleolus 59.4 cm 30 cm From Medial Malleolus 55.6 cm 40 cm From Medial Malleolus 65.6 cm 50 cm From Medial Malleolus 71.7 cm Right MT Heads 31.2 cm Medial Malleolus 30.5 cm 10 cm From Medial Malleolus 31.6 cm 20 cm From Medial Malleolus 39.6 cm 30 cm From Medial Malleolus 56.3 cm 40 cm From Medial Malleolus 63.4 cm 50 cm From Medial Malleolus 62.7 cm Comments Lymphedema Comments *measurement distances are from heel midfoot: right 33.1, left 37/4 knee joint: 59.5 right, 63.1 left PT-OP-Q Treatments Start: 04/25/19 14:28 Freq: Status: Active Protocol: Document 04/25/19 14:30 [facility] (Rec: 04/26/19 09:40 [facility] [id number]) Self-Care/Home Management Treatment Education Other Education wear compression wraps until wound care appointment tomorrow, remove if painful or circulation impaired. Lymphedema Treatment Lymphedema Wrapping Body Location natacha LE's MTP to knee Materials Comprilan and Artiflex, 1/2 foam at ankle crease to obtain more cylindrical extremity shape and prevent tourniquet effect at ankle. Sequential Lymphedema Exercises Comments initiate next session Compression Garment Assessment Compression Garment Assessment Details DME provider from [facility] here briefly during appointment to discuss best compression options for this patient. Patient Education Other Discussed treatment options with recommendation for sequential lymphedema compression pump with pneumatic leg sleeve and wrapping to decrease edema to stable level prior to being measured for Farrow wraps. Feel he would benefit from long-term use the pump due to his history of LE wounds and cellulitis and severe lymphedema. PT-OP-T Assessment and Plan Start: 04/25/19 14:28 Freq: Status: Active Protocol: Document 04/25/19 14:30 [facility] (Rec: 04/26/19 09:40 [facility] [id number]) Physical Therapy Assessment Rehab Potential Rehabilitation Potential Good Evaluation Complexity Number of Personal Factors/Comorbidities 3 or More Number of Body Systems Impaired 4 or More Clinical Presentation at Evaluation Unstable Impairments Impairments Edema Functional Mobility Integument ROM Goals Three Impairment Functional mobility Short Term Goal (STG) Patient will require only min assist for transfers in/out of bed STG Duration 6 wks Shelter Goal (LTG) Patient will be able to get in and out of bed independently LTG Duration 12 wks Two Impairment bilateral LE strength and ROM deficits Lung Puller Goal (LTG) Patient to demonstrate LE ROM WNL and improved functional strength to allow him to lift/ move his left LE without assistance. LTG Duration 12 wks One Impairment lymphedema Short Term Goal (STG) Patient to be compliant with home lymphedema wrapping and sequential lymphedema exercises with the assistance of his caregiver. STG Duration 6 wks Lung Puller Goal (LTG) Decrease and stabilize lymphedema bilateral LE's (no increase or decrease greater than 1 cm over the course of 1 week) and have patient fit with appropriate compression garments; anticipate adjustable lymphedema wraps for long-term edema management . Patient (with assistance of caregiver) to demonstrate independent edema management ability via appropriately using lymphedema pump, applying compression garments, performing sequential lymphedema exercises. LTG Duration 12 wks Assessment Summary Assessment Patient presents with severe, function-limiting lymphedema bilateral LE's with history of cellulitis and multiple LE wounds requiring assistance of wound care specialists. Due to prior CVA patient mobility is limited and he utilizes a power wheelchair for mobility within his home with ability to transfer using a wide based quad cane. He requires skilled therapy for lymphedema management. Feel sequential lymphedema compression pump is required due to the severity of his lymphedema as well as decreased mobility level and ability to self-manage at this time. Weakness in his left UE as well as his obesity make self MLD impossible. Once lymphedema reduced and stabilized he will need to be measured and fit with appropriate compression garment which I feel will most likely be custom adjustable compression wraps. We will also utilize the muscle pump of his LE's as able through sequential lymphedema exercises to help facilitate lymphatic flow, as well as improve his LE ROM and strength to allow for improved functional mobility. Physical Therapy Plan Frequency and Duration Frequency of Treatment 3x/Week Duration of Treatment 12 wks Plan of Care Start Date 04/25/19 Plan of Care End Date 07/26/19 Therapeutic Interventions Therapeutic Interventions Home Exercise Program Lymphedema Management Manual Therapy Patient/Caregiver Education Self-Care/Home Management Therapeutic Activities Therapeutic Exercises Modalities Vasopneumatic Devices Next Visit Focus/Plan Next Note Type Treatment Note Next Visit Plan Sequential lymphedema compression pump, lymphedema wrapping, sequential lymphedema exercises.
--- NOTE | 2019-05-09 16:13 | PT.OTN ---
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 (05/09/19) Obesity, unspecified (05/09/19) Hemiplegia, unspecified affecting left nondominant side (05/09/19) Lymphedema, not elsewhere classified (05/09/19) Weakness (05/09/19) Physical Therapy Treatment Note PT-OP-A Visit Information Start: 04/25/19 14:28 Freq: Status: Active Protocol: Document 05/09/19 14:32 SAK (Rec: 05/09/19 16:12 SAK [id number]) Out-Patient Physical Therapy Visit Information Visit Information Visit Type Treatment Note Visit Start Time 14:32 Visit Stop Time 15:52 Total Visit Minutes 80 Visit Number 2 Number of OPTIONS ADVISOR Visits 0 Evaluation Information Evaluation Date 04/25/19 PT-OP-B Current Condition Start: 04/25/19 14:28 Freq: Status: Active Protocol: Document 04/25/19 14:30 SAK (Rec: 04/26/19 09:40 SAK [id number]) Current Condition History of Current Condition Onset Date 20+ years Current Complaints lymphedema bilateral LE's left greater than right History of Current Condition Patient reports 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 Since that time he has developed lymphedema, been treated for cellulitis and LE wounds. Most recently he was in the hospital from 03/21/19 to 04/05/19 with sepsis, septic shock, and ARF from LE cellulitis. Additionally he was found to have a right ischial pressure ulcer. It was recommended that he go for inpatient rehab but he refused and has been discharged home. He has a caregiver approximately 6 hrs per day. Patient has a history of using Farrow Wraps for his lymphedema but these are worn out and patient has not been able to use for some time. Has not used a lymphedema pump. He presents today for physical therapy reporting a new wound on his left LE. He uses a power wheelchair with tilt in space and elevating legrests . Able to take a few steps using large -based quad cane on right. Prior Treatments and Tests Farrow wraps Current treatment in wound care for ischial pressure ulcer Wound care nurse consulted today for new wound anterior left lower leg; she dressed with bandage Treatment Goals Patient/Caregiver Goals Decrease lymphedema, improve mobility, obtain new Farrow Wraps, be able to self-manage lymphedema with assist of caregiver Prior Functional Status Baseline Function- ADL's Needs Assist Baseline Function- Mobility Needs Assist Baseline Function- Gait 5 ft with LBQC, CGA Baseline Function- Recreation/Hobbies none, reports watching TV Baseline Function- Other low activity level Current Functional Impairments (Reported) Functional Limitations- ADL's Decreased ability to transfer and perform bed mobility due to weight of legs Functional Limitations- Mobility/Gait Decreased ability to ambulate due to weight of legs Functional Limitations- Work/School disabled PT-OP-C Subjective Start: 04/25/19 14:28 Freq: Status: Active Protocol: Document 05/09/19 14:32 SAK (Rec: 05/09/19 16:13 SAK [id number]) OP-PT Subjective Patient Comments Patient Comments regular caregivers unable to wrap patiet's legs. Private caregiver wraps 2x/wk PT-OP-G Mobility & Gait Start: 04/25/19 14:28 Freq: Status: Active Protocol: Document 04/25/19 14:30 SAK (Rec: 04/26/19 09:40 [facility] [id number]) OP Mobility Evaluation Bed Mobility Rolling mod assist Supine to and from Sit mod assist Transfers Sit to Stand min assist from high surface Wheelchair Management Type of Wheelchair power w/c Special Equipment elevating legrests, tilt in space, small air mattress Assessment Details Roho cushion has been ordered OP Gait Assessment Gait Gait Assistance Required: Contact Guard Assist Distance (Feet) 5 Assistive Devices Assistive Device Large Based Quad Cane Orthotic/Prosthetic Devices or Brace: No Gait Deviations General Gait Pattern Decreased Stride Length Decreased Feet Clearance Flexed Trunk Wide Based Gait Factors Limiting Gait Function Factors Limiting Gait Function Decreased Strength Comments Gait Comments tends to slide left LE Stair Climbing Evaluation Comments Stair Climbing Comments unable PT-OP-K Range of Motion Start: 04/25/19 14:28 Freq: Status: Active Protocol: Document 04/25/19 14:30 SAK (Rec: 04/26/19 09:40 [facility] [id number]) Hip Goniometric Range of Motion Hip natacha Hip ROM WFL No Hip ROM Limitations Hip ROM Limitations Muscle Weakness Swelling Knee Goniometric Range of Motion Knee natacha Knee ROM WFL No Knee ROM Limitations Knee ROM Limitations Muscle Weakness Swelling Ankle and Foot Goniometric Range of Motion Ankle and Foot natacha Ankle/Foot ROM WFL No Ankle and Foot ROM Limitations ROM Limitations Muscle Weakness Swelling PT-OP-M Strength Start: 04/25/19 14:28 Freq: Status: Active Protocol: Document 04/25/19 14:30 [facility] (Rec: 04/26/19 09:40 [facility] [id number]) Hip Strength Hip Manual Muscle Testing natacha Comments patient unable to lift against gravity, requires assistance lifting left LE on/off bed Knee Strength Knee Manual Muscle Testing natacha Reason Not Measured Behavior Comments able to extend natacha knees against gravity Ankle/Foot Strength Ankle and Foot Manual Muscle Testing natacha Comments lacking full active motion due to swelling PT-OP-N Lymphedema Start: 04/25/19 14:28 Freq: Status: Active Protocol: Document 04/25/19 14:30 [facility] (Rec: 04/26/19 13:38 [facility] [id number]) Lymphedema Measurements Lower Extremity Circumference Measurements Left MT Heads 35.5 cm Medial Malleolus 35.4 cm 10 cm From Medial Malleolus 39.6 cm 20 cm From Medial Malleolus 59.4 cm 30 cm From Medial Malleolus 55.6 cm 40 cm From Medial Malleolus 65.6 cm 50 cm From Medial Malleolus 71.7 cm Right MT Heads 31.2 cm Medial Malleolus 30.5 cm 10 cm From Medial Malleolus 31.6 cm 20 cm From Medial Malleolus 39.6 cm 30 cm From Medial Malleolus 56.3 cm 40 cm From Medial Malleolus 63.4 cm 50 cm From Medial Malleolus 62.7 cm Comments Lymphedema Comments *measurement distances are from heel midfoot: right 33.1, left 37/4 knee joint: 59.5 right, 63.1 left PT-OP-Q Treatments Start: 04/25/19 14:28 Freq: Status: Active Protocol: Document 05/09/19 14:32 [facility] (Rec: 05/09/19 14:34 [facility] [id number]) Lymphedema Treatment Lymphedema Wrapping Body Location natacha LE's MTP to knee Materials Comprilan and Artiflex, 1/2 foam at ankle crease to obtain more cylindrical extremity shape and prevent tourniquet effect at ankle. Sequential Lymphedema Exercises Location natacha LE's Duration 10 PT-OP-R Modalities Start: 04/25/19 14:28 Freq: Status: Active Protocol: Document 05/09/19 14:32 SAK (Rec: 05/09/19 16:10 [facility] [id number]) Compression Pump Treatment Treatment Location Left Leg Pressure Amount (mmHg) (mmHG) 40 Inflation Time (Seconds) 30 Deflation Time (Seconds) 10 Treatment Duration (minutes) 30 Treatment Tolerance Good PT-OP-T Assessment and Plan Start: 04/25/19 14:28 Freq: Status: Active Protocol: Document 05/09/19 14:32 [facility] (Rec: 05/09/19 14:34 [facility] [id number]) Physical Therapy Assessment Goals Three Impairment Functional mobility Short Term Goal (STG) Patient will require only min assist for transfers in/out of bed STG Duration 6 wks Craft Demonstrator Goal (LTG) Patient will be able to get in and out of bed independently LTG Duration 12 wks Two Impairment bilateral LE strength and ROM deficits Craft Demonstrator Goal (LTG) Patient to demonstrate LE ROM WNL and improved functional strength to allow him to lift/ move his left LE without assistance. LTG Duration 12 wks One Impairment lymphedema Short Term Goal (STG) Patient to be compliant with home lymphedema wrapping and sequential lymphedema exercises with the assistance of his caregiver. STG Duration 6 wks Craft Demonstrator Goal (LTG) Decrease and stabilize lymphedema bilateral LE's (no increase or decrease greater than 1 cm over the course of 1 week) and have patient fit with appropriate compression garments; anticipate adjustable lymphedema wraps for long-term edema management . Patient (with assistance of caregiver) to demonstrate independent edema management ability via appropriately using lymphedema pump, applying compression garments, performing sequential lymphedema exercises. LTG Duration 12 wks Assessment Summary Assessment Patient was unable to be seen in PT last week due to scheduling issues. Circumference remeasured today ; mostly increased. Patient only able to have LE's wrapped 2x/wk at home. Physical Therapy Plan Frequency and Duration Frequency of Treatment 3x/Week Duration of Treatment 12 wks Plan of Care Start Date 04/25/19 Plan of Care End Date 07/26/19 Therapeutic Interventions Therapeutic Interventions Home Exercise Program Lymphedema Management Manual Therapy Patient/Caregiver Education Self-Care/Home Management Therapeutic Activities Therapeutic Exercises Modalities Vasopneumatic Devices Next Visit Focus/Plan Next Note Type Treatment Note Next Visit Plan Sequential lymphedema compression pump, lymphedema wrapping, sequential lymphedema exercises.
--- NOTE | 2019-05-12 14:23 | PT.OTN ---
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 (05/12/19) Obesity, unspecified (05/12/19) Hemiplegia, unspecified affecting left nondominant side (05/12/19) Lymphedema, not elsewhere classified (05/12/19) Weakness (05/12/19) Physical Therapy Treatment Note PT-OP-A Visit Information Start: 04/25/19 14:28 Freq: Status: Active Protocol: Document 05/12/19 14:15 SAK (Rec: 05/12/19 14:23 SAK [id number]) Out-Patient Physical Therapy Visit Information Visit Information Visit Type Treatment Note Visit Start Time 14:32 Visit Stop Time 15:52 Total Visit Minutes 60 Visit Number 3 Number of INCOME TAX ADVISOR Visits 0 Evaluation Information Evaluation Date 04/25/19 PT-OP-B Current Condition Start: 04/25/19 14:28 Freq: Status: Active Protocol: Document 04/25/19 14:30 SAK (Rec: 04/26/19 09:40 SAK [id number]) Current Condition History of Current Condition Onset Date 20+ years Current Complaints lymphedema bilateral LE's left greater than right History of Current Condition Patient reports 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 Since that time he has developed lymphedema, been treated for cellulitis and LE wounds. Most recently he was in the hospital from 03/21/19 to 04/05/19 with sepsis, septic shock, and ARF from LE cellulitis. Additionally he was found to have a right ischial pressure ulcer. It was recommended that he go for inpatient rehab but he refused and has been discharged home. He has a caregiver approximately 6 hrs per day. Patient has a history of using Farrow Wraps for his lymphedema but these are worn out and patient has not been able to use for some time. Has not used a lymphedema pump. He presents today for physical therapy reporting a new wound on his left LE. He uses a power wheelchair with tilt in space and elevating legrests . Able to take a few steps using large -based quad cane on right. Prior Treatments and Tests Farrow wraps Current treatment in wound care for ischial pressure ulcer Wound care nurse consulted today for new wound anterior left lower leg; she dressed with bandage Treatment Goals Patient/Caregiver Goals Decrease lymphedema, improve mobility, obtain new Farrow Wraps, be able to self-manage lymphedema with assist of caregiver Prior Functional Status Baseline Function- ADL's Needs Assist Baseline Function- Mobility Needs Assist Baseline Function- Gait 5 ft with LBQC, CGA Baseline Function- Recreation/Hobbies none, reports watching TV Baseline Function- Other low activity level Current Functional Impairments (Reported) Functional Limitations- ADL's Decreased ability to transfer and perform bed mobility due to weight of legs Functional Limitations- Mobility/Gait Decreased ability to ambulate due to weight of legs Functional Limitations- Work/School disabled PT-OP-C Subjective Start: 04/25/19 14:28 Freq: Status: Active Protocol: Document 05/12/19 14:15 SAK (Rec: 05/12/19 14:23 SAK [id number]) OP-PT Subjective Patient Comments Patient Comments Caregiver Joan present. PT-OP-G Mobility & Gait Start: 04/25/19 14:28 Freq: Status: Active Protocol: Document 04/25/19 14:30 SAK (Rec: 04/26/19 09:40 [facility] [id number]) OP Mobility Evaluation Bed Mobility Rolling mod assist Supine to and from Sit mod assist Transfers Sit to Stand min assist from high surface Wheelchair Management Type of Wheelchair power w/c Special Equipment elevating legrests, tilt in space, small air mattress Assessment Details Roho cushion has been ordered OP Gait Assessment Gait Gait Assistance Required: Contact Guard Assist Distance (Feet) 5 Assistive Devices Assistive Device Large Based Quad Cane Orthotic/Prosthetic Devices or Brace: No Gait Deviations General Gait Pattern Decreased Stride Length Decreased Feet Clearance Flexed Trunk Wide Based Gait Factors Limiting Gait Function Factors Limiting Gait Function Decreased Strength Comments Gait Comments tends to slide left LE Stair Climbing Evaluation Comments Stair Climbing Comments unable PT-OP-K Range of Motion Start: 04/25/19 14:28 Freq: Status: Active Protocol: Document 04/25/19 14:30 SAK (Rec: 04/26/19 09:40 [facility] [id number]) Hip Goniometric Range of Motion Hip natacha Hip ROM WFL No Hip ROM Limitations Hip ROM Limitations Muscle Weakness Swelling Knee Goniometric Range of Motion Knee natacha Knee ROM WFL No Knee ROM Limitations Knee ROM Limitations Muscle Weakness Swelling Ankle and Foot Goniometric Range of Motion Ankle and Foot natacha Ankle/Foot ROM WFL No Ankle and Foot ROM Limitations ROM Limitations Muscle Weakness Swelling PT-OP-M Strength Start: 04/25/19 14:28 Freq: Status: Active Protocol: Document 04/25/19 14:30 SAK (Rec: 04/26/19 09:40 [facility] [id number]) Hip Strength Hip Manual Muscle Testing natacha Comments patient unable to lift against gravity, requires assistance lifting left LE on/off bed Knee Strength Knee Manual Muscle Testing natacha Reason Not Measured Behavior Comments able to extend natacha knees against gravity Ankle/Foot Strength Ankle and Foot Manual Muscle Testing natacha Comments lacking full active motion due to swelling PT-OP-N Lymphedema Start: 04/25/19 14:28 Freq: Status: Active Protocol: Document 04/25/19 14:30 SAK (Rec: 04/26/19 13:38 [facility] [id number]) Lymphedema Measurements Lower Extremity Circumference Measurements Left MT Heads 35.5 cm Medial Malleolus 35.4 cm 10 cm From Medial Malleolus 39.6 cm 20 cm From Medial Malleolus 59.4 cm 30 cm From Medial Malleolus 55.6 cm 40 cm From Medial Malleolus 65.6 cm 50 cm From Medial Malleolus 71.7 cm Right MT Heads 31.2 cm Medial Malleolus 30.5 cm 10 cm From Medial Malleolus 31.6 cm 20 cm From Medial Malleolus 39.6 cm 30 cm From Medial Malleolus 56.3 cm 40 cm From Medial Malleolus 63.4 cm 50 cm From Medial Malleolus 62.7 cm Comments Lymphedema Comments *measurement distances are from heel midfoot: right 33.1, left 37/4 knee joint: 59.5 right, 63.1 left PT-OP-Q Treatments Start: 04/25/19 14:28 Freq: Status: Active Protocol: Document 05/12/19 14:15 SAK (Rec: 05/12/19 14:23 [facility] [id number]) Therapeutic Activity Therapeutic Activity transfers Name w/c to and from mat table Reps/Minutes 2x Self-Care/Home Management Treatment Education Caregiver Education lymphedema wrapping Lymphedema Treatment Lymphedema Wrapping Body Location natacha LE's MTP to knee Materials Comprilan and Artiflex, 1/2 foam at ankle crease to obtain more cylindrical extremity shape and prevent tourniquet effect at ankle. Sequential Lymphedema Exercises Location natacha LE's Duration 12 PT-OP-R Modalities Start: 04/25/19 14:28 Freq: Status: Active Protocol: Document 05/12/19 14:15 [facility] (Rec: 05/12/19 14:23 [facility] [id number]) Compression Pump Treatment Treatment Location Left Leg Pressure Amount (mmHg) (mmHG) 40 Inflation Time (Seconds) 30 Deflation Time (Seconds) 10 Treatment Duration (minutes) 19 Treatment Tolerance Good PT-OP-T Assessment and Plan Start: 04/25/19 14:28 Freq: Status: Active Protocol: Document 05/12/19 14:15 [facility] (Rec: 05/12/19 14:23 [facility] [id number]) Physical Therapy Assessment Goals Three Impairment Functional mobility Short Term Goal (STG) Patient will require only min assist for transfers in/out of bed STG Duration 6 wks Storage Engineer Goal (LTG) Patient will be able to get in and out of bed independently LTG Duration 12 wks Two Impairment bilateral LE strength and ROM deficits Storage Engineer Goal (LTG) Patient to demonstrate LE ROM WNL and improved functional strength to allow him to lift/ move his left LE without assistance. LTG Duration 12 wks One Impairment lymphedema Short Term Goal (STG) Patient to be compliant with home lymphedema wrapping and sequential lymphedema exercises with the assistance of his caregiver. STG Duration 6 wks Storage Engineer Goal (LTG) Decrease and stabilize lymphedema bilateral LE's (no increase or decrease greater than 1 cm over the course of 1 week) and have patient fit with appropriate compression garments; anticipate adjustable lymphedema wraps for long-term edema management . Patient (with assistance of caregiver) to demonstrate independent edema management ability via appropriately using lymphedema pump, applying compression garments, performing sequential lymphedema exercises. LTG Duration 12 wks Assessment Summary Assessment Had planned for increased time on pneumatic pump but patient had to go to bathroom and not enough time available in treatment session to get him back in the pump. Left message with [facility] and with PATRICA caregiver regarding pneumatic compression pump for home use. Physical Therapy Plan Frequency and Duration Frequency of Treatment 3x/Week Duration of Treatment 12 wks Plan of Care Start Date 04/25/19 Plan of Care End Date 07/26/19 Therapeutic Interventions Therapeutic Interventions Home Exercise Program Lymphedema Management Manual Therapy Patient/Caregiver Education Self-Care/Home Management Therapeutic Activities Therapeutic Exercises Modalities Vasopneumatic Devices Next Visit Focus/Plan Next Note Type Treatment Note Next Visit Plan Sequential lymphedema compression pump, lymphedema wrapping, sequential lymphedema exercises.
--- NOTE | 2019-05-23 17:00 | PT.OTN ---
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 (05/23/19) Obesity, unspecified (05/23/19) Hemiplegia, unspecified affecting left nondominant side (05/23/19) Lymphedema, not elsewhere classified (05/23/19) Weakness (05/23/19) Physical Therapy Treatment Note PT-OP-A Visit Information Start: 04/25/19 14:28 Freq: Status: Active Protocol: Document 05/23/19 16:45 [facility] (Rec: 05/23/19 17:00 [facility] [id number]) Out-Patient Physical Therapy Visit Information Visit Information Visit Type Treatment Note Visit Start Time 14:32 Visit Stop Time 15:52 Total Visit Minutes 70 Visit Number 3 Number of UNDER GROUND MINER Visits 0 Evaluation Information Evaluation Date 04/25/19 PT-OP-B Current Condition Start: 04/25/19 14:28 Freq: Status: Active Protocol: Document 04/25/19 14:30 SAK (Rec: 04/26/19 09:40 [facility]AK [id number]) Current Condition History of Current Condition Onset Date 20+ years Current Complaints lymphedema bilateral LE's left greater than right History of Current Condition Patient reports 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 Since that time he has developed lymphedema, been treated for cellulitis and LE wounds. Most recently he was in the hospital from 03/21/19 to 04/05/19 with sepsis, septic shock, and ARF from LE cellulitis. Additionally he was found to have a right ischial pressure ulcer. It was recommended that he go for inpatient rehab but he refused and has been discharged home. He has a caregiver approximately 6 hrs per day. Patient has a history of using Farrow Wraps for his lymphedema but these are worn out and patient has not been able to use for some time. Has not used a lymphedema pump. He presents today for physical therapy reporting a new wound on his left LE. He uses a power wheelchair with tilt in space and elevating legrests . Able to take a few steps using large -based quad cane on right. Prior Treatments and Tests Farrow wraps Current treatment in wound care for ischial pressure ulcer Wound care nurse consulted today for new wound anterior left lower leg; she dressed with bandage Treatment Goals Patient/Caregiver Goals Decrease lymphedema, improve mobility, obtain new Farrow Wraps, be able to self-manage lymphedema with assist of caregiver Prior Functional Status Baseline Function- ADL's Needs Assist Baseline Function- Mobility Needs Assist Baseline Function- Gait 5 ft with LBQC, CGA Baseline Function- Recreation/Hobbies none, reports watching TV Baseline Function- Other low activity level Current Functional Impairments (Reported) Functional Limitations- ADL's Decreased ability to transfer and perform bed mobility due to weight of legs Functional Limitations- Mobility/Gait Decreased ability to ambulate due to weight of legs Functional Limitations- Work/School disabled PT-OP-C Subjective Start: 04/25/19 14:28 Freq: Status: Active Protocol: Document 05/23/19 16:45 SAK (Rec: 05/23/19 17:00 [facility] [id number]) OP-PT Subjective Patient Comments Patient Comments Caregiver Hasmukh present. Patient reports was hospitalized last week due to having maggots in his wound left LE, was surgically debrided. PT-OP-G Mobility & Gait Start: 04/25/19 14:28 Freq: Status: Active Protocol: Document 04/25/19 14:30 [facility] (Rec: 04/26/19 09:40 [facility] [id number]) OP Mobility Evaluation Bed Mobility Rolling mod assist Supine to and from Sit mod assist Transfers Sit to Stand min assist from high surface Wheelchair Management Type of Wheelchair power w/c Special Equipment elevating legrests, tilt in space, small air mattress Assessment Details Roho cushion has been ordered OP Gait Assessment Gait Gait Assistance Required: Contact Guard Assist Distance (Feet) 5 Assistive Devices Assistive Device Large Based Quad Cane Orthotic/Prosthetic Devices or Brace: No Gait Deviations General Gait Pattern Decreased Stride Length Decreased Feet Clearance Flexed Trunk Wide Based Gait Factors Limiting Gait Function Factors Limiting Gait Function Decreased Strength Comments Gait Comments tends to slide left LE Stair Climbing Evaluation Comments Stair Climbing Comments unable PT-OP-K Range of Motion Start: 04/25/19 14:28 Freq: Status: Active Protocol: Document 04/25/19 14:30 [facility]AK (Rec: 04/26/19 09:40 [facility] [id number]) Hip Goniometric Range of Motion Hip natacha Hip ROM WFL No Hip ROM Limitations Hip ROM Limitations Muscle Weakness Swelling Knee Goniometric Range of Motion Knee natacha Knee ROM WFL No Knee ROM Limitations Knee ROM Limitations Muscle Weakness Swelling Ankle and Foot Goniometric Range of Motion Ankle and Foot natacha Ankle/Foot ROM WFL No Ankle and Foot ROM Limitations ROM Limitations Muscle Weakness Swelling PT-OP-M Strength Start: 04/25/19 14:28 Freq: Status: Active Protocol: Document 04/25/19 14:30 [facility] (Rec: 04/26/19 09:40 [facility] [id number]) Hip Strength Hip Manual Muscle Testing natacha Comments patient unable to lift against gravity, requires assistance lifting left LE on/off bed Knee Strength Knee Manual Muscle Testing natacha Reason Not Measured Behavior Comments able to extend natacha knees against gravity Ankle/Foot Strength Ankle and Foot Manual Muscle Testing natacha Comments lacking full active motion due to swelling PT-OP-N Lymphedema Start: 04/25/19 14:28 Freq: Status: Active Protocol: Document 04/25/19 14:30 [facility] (Rec: 04/26/19 13:38 [facility] [id number]) Lymphedema Measurements Lower Extremity Circumference Measurements Left MT Heads 35.5 cm Medial Malleolus 35.4 cm 10 cm From Medial Malleolus 39.6 cm 20 cm From Medial Malleolus 59.4 cm 30 cm From Medial Malleolus 55.6 cm 40 cm From Medial Malleolus 65.6 cm 50 cm From Medial Malleolus 71.7 cm Right MT Heads 31.2 cm Medial Malleolus 30.5 cm 10 cm From Medial Malleolus 31.6 cm 20 cm From Medial Malleolus 39.6 cm 30 cm From Medial Malleolus 56.3 cm 40 cm From Medial Malleolus 63.4 cm 50 cm From Medial Malleolus 62.7 cm Comments Lymphedema Comments *measurement distances are from heel midfoot: right 33.1, left 37/4 knee joint: 59.5 right, 63.1 left PT-OP-Q Treatments Start: 04/25/19 14:28 Freq: Status: Active Protocol: Document 05/23/19 16:45 [facility] (Rec: 05/23/19 17:00 [facility] [id number]) Therapeutic Activity Therapeutic Activity transfers Name w/c to and from mat table Reps/Minutes 2x Lymphedema Treatment Lymphedema Wrapping Body Location natacha LE's toes to knees Materials solitario wraps brought by patient ( did not bring previously issued lymphedema wraps). Dressing left in place, wound care appointment tomorrow. Sequential Lymphedema Exercises Location natacha LE's Duration 12 PT-OP-R Modalities Start: 04/25/19 14:28 Freq: Status: Active Protocol: Document 05/23/19 16:45 [facility] (Rec: 05/23/19 17:00 [facility] [id number]) Compression Pump Treatment Treatment Location Right Leg Pressure Amount (mmHg) (mmHG) 40 Inflation Time (Seconds) 30 Deflation Time (Seconds) 10 Treatment Duration (minutes) 14 Treatment Tolerance Good Left Leg Pressure Amount (mmHg) (mmHG) 40 Inflation Time (Seconds) 30 Deflation Time (Seconds) 10 Treatment Duration (minutes) 30 Treatment Tolerance Good PT-OP-T Assessment and Plan Start: 04/25/19 14:28 Freq: Status: Active Protocol: Document 05/23/19 16:45 [facility] (Rec: 05/23/19 17:00 [facility] [id number]) Physical Therapy Assessment Goals Three Impairment Functional mobility Short Term Goal (STG) Patient will require only min assist for transfers in/out of bed STG Duration 6 wks Nursing Home Goal (LTG) Patient will be able to get in and out of bed independently LTG Duration 12 wks Two Impairment bilateral LE strength and ROM deficits Grocery Associate Goal (LTG) Patient to demonstrate LE ROM WNL and improved functional strength to allow him to lift/ move his left LE without assistance. LTG Duration 12 wks One Impairment lymphedema Short Term Goal (STG) Patient to be compliant with home lymphedema wrapping and sequential lymphedema exercises with the assistance of his caregiver. STG Duration 6 wks Grocery Associate Goal (LTG) Decrease and stabilize lymphedema bilateral LE's (no increase or decrease greater than 1 cm over the course of 1 week) and have patient fit with appropriate compression garments; anticipate adjustable lymphedema wraps for long-term edema management . Patient (with assistance of caregiver) to demonstrate independent edema management ability via appropriately using lymphedema pump, applying compression garments, performing sequential lymphedema exercises. LTG Duration 12 wks Assessment Summary Assessment Patient measurements decreased today left LE, likely due to hospitalization with legs elevated. Physical Therapy Plan Frequency and Duration Frequency of Treatment 3x/Week Duration of Treatment 12 wks Plan of Care Start Date 04/25/19 Plan of Care End Date 07/26/19 Therapeutic Interventions Therapeutic Interventions Home Exercise Program Lymphedema Management Manual Therapy Patient/Caregiver Education Self-Care/Home Management Therapeutic Activities Therapeutic Exercises Modalities Vasopneumatic Devices Next Visit Focus/Plan Next Note Type Treatment Note Next Visit Plan If able to work into schedule will wrap patient's LE's tomorrow when at wound care appointment if he brings his wraps. Sequential lymphedema compression pump, lymphedema wrapping, sequential lymphedema exercises.
--- NOTE | 2019-05-26 14:52 | PT.OTN ---
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 (05/26/19) Obesity, unspecified (05/26/19) Hemiplegia, unspecified affecting left nondominant side (05/26/19) Lymphedema, not elsewhere classified (05/26/19) Weakness (05/26/19) Physical Therapy Treatment Note PT-OP-A Visit Information Start: 04/25/19 14:28 Freq: Status: Active Protocol: Document 05/26/19 14:24 [facility]AK (Rec: 05/26/19 14:30 [facility] [id number]) Out-Patient Physical Therapy Visit Information Visit Information Visit Type Treatment Note Visit Start Time 14:28 Visit Stop Time 15:48 Total Visit Minutes 70 Visit Number 4 Number of SHOW OPERATIONS SUPERVISOR Visits 0 PT-OP-B Current Condition Start: 04/25/19 14:28 Freq: Status: Active Protocol: Document 04/25/19 14:30 [facility] (Rec: 04/26/19 09:40 [facility] [id number]) Current Condition History of Current Condition Onset Date 20+ years Current Complaints lymphedema bilateral LE's left greater than right History of Current Condition Patient reports 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 Since that time he has developed lymphedema, been treated for cellulitis and LE wounds. Most recently he was in the hospital from 03/21/19 to 04/05/19 with sepsis, septic shock, and ARF from LE cellulitis. Additionally he was found to have a right ischial pressure ulcer. It was recommended that he go for inpatient rehab but he refused and has been discharged home. He has a caregiver approximately 6 hrs per day. Patient has a history of using Farrow Wraps for his lymphedema but these are worn out and patient has not been able to use for some time. Has not used a lymphedema pump. He presents today for physical therapy reporting a new wound on his left LE. He uses a power wheelchair with tilt in space and elevating legrests . Able to take a few steps using large -based quad cane on right. Prior Treatments and Tests Farrow wraps Current treatment in wound care for ischial pressure ulcer Wound care nurse consulted today for new wound anterior left lower leg; she dressed with bandage Treatment Goals Patient/Caregiver Goals Decrease lymphedema, improve mobility, obtain new Farrow Wraps, be able to self-manage lymphedema with assist of caregiver Prior Functional Status Baseline Function- ADL's Needs Assist Baseline Function- Mobility Needs Assist Baseline Function- Gait 5 ft with LBQC, CGA Baseline Function- Recreation/Hobbies none, reports watching TV Baseline Function- Other low activity level Current Functional Impairments (Reported) Functional Limitations- ADL's Decreased ability to transfer and perform bed mobility due to weight of legs Functional Limitations- Mobility/Gait Decreased ability to ambulate due to weight of legs Functional Limitations- Work/School disabled PT-OP-C Subjective Start: 04/25/19 14:28 Freq: Status: Active Protocol: Document 05/26/19 14:24 [facility]AK (Rec: 05/26/19 14:30 [facility] [id number]) OP-PT Subjective Patient Comments Patient Comments Patient reports unable to have caregiver present when PT appointments on Tuesdays and PT-OP-G Mobility & Gait Start: 04/25/19 14:28 Freq: Status: Active Protocol: Document 04/25/19 14:30 [facility] (Rec: 04/26/19 09:40 [facility] [id number]) OP Mobility Evaluation Bed Mobility Rolling mod assist Supine to and from Sit mod assist Transfers Sit to Stand min assist from high surface Wheelchair Management Type of Wheelchair power w/c Special Equipment elevating legrests, tilt in space, small air mattress Assessment Details Roho cushion has been ordered OP Gait Assessment Gait Gait Assistance Required: Contact Guard Assist Distance (Feet) 5 Assistive Devices Assistive Device Large Based Quad Cane Orthotic/Prosthetic Devices or Brace: No Gait Deviations General Gait Pattern Decreased Stride Length, Decreased Feet Clearance, Flexed Trunk,Wide Based Gait Factors Limiting Gait Function Factors Limiting Gait Function Decreased Strength Comments Gait Comments tends to slide left LE Stair Climbing Evaluation Comments Stair Climbing Comments unable PT-OP-K Range of Motion Start: 04/25/19 14:28 Freq: Status: Active Protocol: Document 04/25/19 14:30 [facility] (Rec: 04/26/19 09:40 [facility] [id number]) Hip Goniometric Range of Motion Hip natacha Hip ROM WFL No Hip ROM Limitations Hip ROM Limitations Muscle Weakness,Swelling Knee Goniometric Range of Motion Knee natacha Knee ROM WFL No Knee ROM Limitations Knee ROM Limitations Muscle Weakness,Swelling Ankle and Foot Goniometric Range of Motion Ankle and Foot natacha Ankle/Foot ROM WFL No Ankle and Foot ROM Limitations ROM Limitations Muscle Weakness,Swelling PT-OP-M Strength Start: 04/25/19 14:28 Freq: Status: Active Protocol: Document 04/25/19 14:30 [facility] (Rec: 04/26/19 09:40 [facility] [id number]) Hip Strength Hip Manual Muscle Testing natacha Comments patient unable to lift against gravity, requires assistance lifting left LE on/off bed Knee Strength Knee Manual Muscle Testing natacha Reason Not Measured Behavior Comments able to extend natacha knees against gravity Ankle/Foot Strength Ankle and Foot Manual Muscle Testing natacha Comments lacking full active motion due to swelling PT-OP-N Lymphedema Start: 04/25/19 14:28 Freq: Status: Active Protocol: Document 04/25/19 14:30 [facility] (Rec: 04/26/19 13:38 [facility] [id number]) Lymphedema Measurements Lower Extremity Circumference Measurements Left MT Heads 35.5 cm Medial Malleolus 35.4 cm 10 cm From Medial Malleolus 39.6 cm 20 cm From Medial Malleolus 59.4 cm 30 cm From Medial Malleolus 55.6 cm 40 cm From Medial Malleolus 65.6 cm 50 cm From Medial Malleolus 71.7 cm Right MT Heads 31.2 cm Medial Malleolus 30.5 cm 10 cm From Medial Malleolus 31.6 cm 20 cm From Medial Malleolus 39.6 cm 30 cm From Medial Malleolus 56.3 cm 40 cm From Medial Malleolus 63.4 cm 50 cm From Medial Malleolus 62.7 cm Comments Lymphedema Comments *measurement distances are from heel midfoot: right 33.1, left 37/4 knee joint: 59.5 right, 63.1 left PT-OP-Q Treatments Start: 04/25/19 14:28 Freq: Status: Active Protocol: Document 05/26/19 14:24 [facility] (Rec: 05/26/19 14:30 [facility] [id number]) Therapeutic Exercises Supine Exercises hip abd Reps/Minutes 10x Comments AAROM heel slides Reps/Minutes 10x Comments AAROM glut sets Reps/Minutes 10x quad sets Reps/Minutes 10x ankle pumps Reps/Minutes 10x Therapeutic Activity Therapeutic Activity transfers Name w/c to and from mat table Reps/Minutes 2x Lymphedema Treatment Lymphedema Wrapping Body Location natacha LE's toes to knees Materials Comprilan and Artiflex with foam at ankle to obtain cylindrical shape for wrapping . PT-OP-R Modalities Start: 04/25/19 14:28 Freq: Status: Active Protocol: Document 05/23/19 16:45 [facility] (Rec: 05/23/19 17:00 [facility] [id number]) Compression Pump Treatment Treatment Location Right Leg Pressure Amount (mmHg) (mmHG) 40 Inflation Time (Seconds) 30 Deflation Time (Seconds) 10 Treatment Duration (minutes) 14 Treatment Tolerance Good Left Leg Pressure Amount (mmHg) (mmHG) 40 Inflation Time (Seconds) 30 Deflation Time (Seconds) 10 Treatment Duration (minutes) 30 Treatment Tolerance Good PT-OP-T Assessment and Plan Start: 04/25/19 14:28 Freq: Status: Active Protocol: Document 05/23/19 16:45 [facility] (Rec: 05/23/19 17:00 [facility] [id number]) Physical Therapy Assessment Goals Three Impairment Functional mobility Short Term Goal (STG) Patient will require only min assist for transfers in/out of bed STG Duration 6 wks Pit Furnace Melter Goal (LTG) Patient will be able to get in and out of bed independently LTG Duration 12 wks Two Impairment bilateral LE strength and ROM deficits Residential Goal (LTG) Patient to demonstrate LE ROM WNL and improved functional strength to allow him to lift/ move his left LE without assistance. LTG Duration 12 wks One Impairment lymphedema Short Term Goal (STG) Patient to be compliant with home lymphedema wrapping and sequential lymphedema exercises with the assistance of his caregiver. STG Duration 6 wks Residential Goal (LTG) Decrease and stabilize lymphedema bilateral LE's (no increase or decrease greater than 1 cm over the course of 1 week) and have patient fit with appropriate compression garments; anticipate adjustable lymphedema wraps for long-term edema management . Patient (with assistance of caregiver) to demonstrate independent edema management ability via appropriately using lymphedema pump, applying compression garments, performing sequential lymphedema exercises. LTG Duration 12 wks Assessment Summary Assessment Patient measurements decreased today left LE, likely due to hospitalization with legs elevated. Physical Therapy Plan Frequency and Duration Frequency of Treatment 3x/Week Duration of Treatment 12 wks Plan of Care Start Date 04/25/19 Plan of Care End Date 07/26/19 Therapeutic Interventions Therapeutic Interventions Home Exercise Program, Lymphedema Management,Manual Therapy,Patient/Caregiver Education,Self-Care/Home Management,Therapeutic Activities,Therapeutic Exercises Modalities Vasopneumatic Devices Next Visit Focus/Plan Next Note Type Treatment Note Next Visit Plan If able to work into schedule will wrap patient's LE's tomorrow when at wound care appointment if he brings his wraps. Sequential lymphedema compression pump, lymphedema wrapping, sequential lymphedema exercises.
--- NOTE | 2019-06-07 14:19 | PT.OTN ---
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 (06/07/19) Obesity, unspecified (06/07/19) Hemiplegia, unspecified affecting left nondominant side (06/07/19) Lymphedema, not elsewhere classified (06/07/19) Weakness (06/07/19) Physical Therapy Treatment Note PT-OP-A Visit Information Start: 04/25/19 14:28 Freq: Status: Active Protocol: Document 06/07/19 13:50 SAK (Rec: 06/07/19 13:55 [facility] [id number]) Out-Patient Physical Therapy Visit Information Visit Information Visit Type Treatment Note Visit Start Time 13:00 Visit Stop Time 14:20 Total Visit Minutes 80 Visit Number 5 Number of OVERCOILER Visits 0 PT-OP-B Current Condition Start: 04/25/19 14:28 Freq: Status: Active Protocol: Document 04/25/19 14:30 SAK (Rec: 04/26/19 09:40 [facility] [id number]) Current Condition History of Current Condition Onset Date 20+ years Current Complaints lymphedema bilateral LE's left greater than right History of Current Condition Patient reports 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 Since that time he has developed lymphedema, been treated for cellulitis and LE wounds. Most recently he was in the hospital from 03/21/19 to 04/05/19 with sepsis, septic shock, and ARF from LE cellulitis. Additionally he was found to have a right ischial pressure ulcer. It was recommended that he go for inpatient rehab but he refused and has been discharged home. He has a caregiver approximately 6 hrs per day. Patient has a history of using Farrow Wraps for his lymphedema but these are worn out and patient has not been able to use for some time. Has not used a lymphedema pump. He presents today for physical therapy reporting a new wound on his left LE. He uses a power wheelchair with tilt in space and elevating legrests . Able to take a few steps using large -based quad cane on right. Prior Treatments and Tests Farrow wraps Current treatment in wound care for ischial pressure ulcer Wound care nurse consulted today for new wound anterior left lower leg; she dressed with bandage Treatment Goals Patient/Caregiver Goals Decrease lymphedema, improve mobility, obtain new Farrow Wraps, be able to self-manage lymphedema with assist of caregiver Prior Functional Status Baseline Function- ADL's Needs Assist Baseline Function- Mobility Needs Assist Baseline Function- Gait 5 ft with LBQC, CGA Baseline Function- Recreation/Hobbies none, reports watching TV Baseline Function- Other low activity level Current Functional Impairments (Reported) Functional Limitations- ADL's Decreased ability to transfer and perform bed mobility due to weight of legs Functional Limitations- Mobility/Gait Decreased ability to ambulate due to weight of legs Functional Limitations- Work/School disabled PT-OP-C Subjective Start: 04/25/19 14:28 Freq: Status: Active Protocol: Document 06/07/19 13:50 SAK (Rec: 06/07/19 13:55 [facility] [id number]) OP-PT Subjective Patient Comments Patient Comments Patient reports had to cancel last week due to transportation company requiring caregiver present during transportation to medical appointments. PT-OP-G Mobility & Gait Start: 04/25/19 14:28 Freq: Status: Active Protocol: Document 04/25/19 14:30 SAK (Rec: 04/26/19 09:40 [facility] [id number]) OP Mobility Evaluation Bed Mobility Rolling mod assist Supine to and from Sit mod assist Transfers Sit to Stand min assist from high surface Wheelchair Management Type of Wheelchair power w/c Special Equipment elevating legrests, tilt in space, small air mattress Assessment Details Roho cushion has been ordered OP Gait Assessment Gait Gait Assistance Required: Contact Guard Assist Distance (Feet) 5 Assistive Devices Assistive Device Large Based Quad Cane Orthotic/Prosthetic Devices or Brace: No Gait Deviations General Gait Pattern Decreased Stride Length, Decreased Feet Clearance, Flexed Trunk,Wide Based Gait Factors Limiting Gait Function Factors Limiting Gait Function Decreased Strength Comments Gait Comments tends to slide left LE Stair Climbing Evaluation Comments Stair Climbing Comments unable PT-OP-K Range of Motion Start: 04/25/19 14:28 Freq: Status: Active Protocol: Document 04/25/19 14:30 SAK (Rec: 04/26/19 09:40 [facility] [id number]) Hip Goniometric Range of Motion Hip natacha Hip ROM WFL No Hip ROM Limitations Hip ROM Limitations Muscle Weakness,Swelling Knee Goniometric Range of Motion Knee natacha Knee ROM WFL No Knee ROM Limitations Knee ROM Limitations Muscle Weakness,Swelling Ankle and Foot Goniometric Range of Motion Ankle and Foot natacha Ankle/Foot ROM WFL No Ankle and Foot ROM Limitations ROM Limitations Muscle Weakness,Swelling PT-OP-M Strength Start: 04/25/19 14:28 Freq: Status: Active Protocol: Document 04/25/19 14:30 SAK (Rec: 04/26/19 09:40 [facility]AK [id number]) Hip Strength Hip Manual Muscle Testing natacha Comments patient unable to lift against gravity, requires assistance lifting left LE on/off bed Knee Strength Knee Manual Muscle Testing natacha Reason Not Measured Behavior Comments able to extend natacha knees against gravity Ankle/Foot Strength Ankle and Foot Manual Muscle Testing natacha Comments lacking full active motion due to swelling PT-OP-N Lymphedema Start: 04/25/19 14:28 Freq: Status: Active Protocol: Document 04/25/19 14:30 SAK (Rec: 04/26/19 13:38 SAK [id number]) Lymphedema Measurements Lower Extremity Circumference Measurements Left MT Heads 35.5 cm Medial Malleolus 35.4 cm 10 cm From Medial Malleolus 39.6 cm 20 cm From Medial Malleolus 59.4 cm 30 cm From Medial Malleolus 55.6 cm 40 cm From Medial Malleolus 65.6 cm 50 cm From Medial Malleolus 71.7 cm Right MT Heads 31.2 cm Medial Malleolus 30.5 cm 10 cm From Medial Malleolus 31.6 cm 20 cm From Medial Malleolus 39.6 cm 30 cm From Medial Malleolus 56.3 cm 40 cm From Medial Malleolus 63.4 cm 50 cm From Medial Malleolus 62.7 cm Comments Lymphedema Comments *measurement distances are from heel midfoot: right 33.1, left 37/4 knee joint: 59.5 right, 63.1 left PT-OP-Q Treatments Start: 04/25/19 14:28 Freq: Status: Active Protocol: Document 06/07/19 13:50 SAK (Rec: 06/07/19 13:55 SAK [id number]) Therapeutic Exercises Supine Exercises foot inv/ev Reps/Minutes 10x2 SAQ Reps/Minutes 10x2 hip IR/ER Reps/Minutes 10x hip abd Reps/Minutes 10x Comments AAROM heel slides Reps/Minutes 10x Comments AAROM glut sets Reps/Minutes 10x ankle pumps Reps/Minutes 10x Therapeutic Activity Therapeutic Activity transfers Name w/c to and from mat table Reps/Minutes 2x Comments ambulated 10' with mod assist from caregiver PT-OP-R Modalities Start: 04/25/19 14:28 Freq: Status: Active Protocol: Document 06/07/19 13:50 SAK (Rec: 06/07/19 14:19 SAK [id number]) Compression Pump Treatment Treatment Location Right Leg Pressure Amount (mmHg) (mmHG) 40 Inflation Time (Seconds) 30 Deflation Time (Seconds) 10 Treatment Duration (minutes) 35 Treatment Tolerance Good PT-OP-T Assessment and Plan Start: 04/25/19 14:28 Freq: Status: Active Protocol: Document 06/07/19 13:50 [facility] (Rec: 06/07/19 13:55 SAK [id number]) Physical Therapy Assessment Goals Three Impairment Functional mobility Short Term Goal (STG) Patient will require only min assist for transfers in/out of bed STG Duration 6 wks Starch Treating Assistant Goal (LTG) Patient will be able to get in and out of bed independently LTG Duration 12 wks Two Impairment bilateral LE strength and ROM deficits Starch Treating Assistant Goal (LTG) Patient to demonstrate LE ROM WNL and improved functional strength to allow him to lift/ move his left LE without assistance. LTG Duration 12 wks One Impairment lymphedema Short Term Goal (STG) Patient to be compliant with home lymphedema wrapping and sequential lymphedema exercises with the assistance of his caregiver. STG Duration 6 wks Chcf Goal (LTG) Decrease and stabilize lymphedema bilateral LE's (no increase or decrease greater than 1 cm over the course of 1 week) and have patient fit with appropriate compression garments; anticipate adjustable lymphedema wraps for long-term edema management . Patient (with assistance of caregiver) to demonstrate independent edema management ability via appropriately using lymphedema pump, applying compression garments, performing sequential lymphedema exercises. LTG Duration 12 wks Physical Therapy Plan Frequency and Duration Frequency of Treatment 3x/Week Duration of Treatment 12 wks Plan of Care Start Date 04/25/19 Plan of Care End Date 07/26/19 Therapeutic Interventions Therapeutic Interventions Home Exercise Program, Lymphedema Management,Manual Therapy,Patient/Caregiver Education,Self-Care/Home Management,Therapeutic Activities,Therapeutic Exercises Modalities Vasopneumatic Devices Next Visit Focus/Plan Next Note Type Treatment Note Next Visit Plan Continue lymphedema management including ther ex for ROM, strengthening, facilitation of lymphatic flow
--- NOTE | 2019-06-09 16:52 | PT.OTN ---
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 (06/09/19) Obesity, unspecified (06/09/19) Hemiplegia, unspecified affecting left nondominant side (06/09/19) Lymphedema, not elsewhere classified (06/09/19) Weakness (06/09/19) Physical Therapy Treatment Note PT-OP-A Visit Information Start: 04/25/19 14:28 Freq: Status: Active Protocol: Document 06/09/19 16:36 [facility] (Rec: 06/09/19 16:52 [facility] [id number]) Out-Patient Physical Therapy Visit Information Visit Information Visit Type Treatment Note Visit Start Time 13:00 Visit Stop Time 14:20 Total Visit Minutes 80 Visit Number 5 Number of MAINTENANCE ADVISOR Visits 0 PT-OP-B Current Condition Start: 04/25/19 14:28 Freq: Status: Active Protocol: Document 04/25/19 14:30 SAK (Rec: 04/26/19 09:40 [facility] [id number]) Current Condition History of Current Condition Onset Date 20+ years Current Complaints lymphedema bilateral LE's left greater than right History of Current Condition Patient reports 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 Since that time he has developed lymphedema, been treated for cellulitis and LE wounds. Most recently he was in the hospital from 03/21/19 to 04/05/19 with sepsis, septic shock, and ARF from LE cellulitis. Additionally he was found to have a right ischial pressure ulcer. It was recommended that he go for inpatient rehab but he refused and has been discharged home. He has a caregiver approximately 6 hrs per day. Patient has a history of using Farrow Wraps for his lymphedema but these are worn out and patient has not been able to use for some time. Has not used a lymphedema pump. He presents today for physical therapy reporting a new wound on his left LE. He uses a power wheelchair with tilt in space and elevating legrests . Able to take a few steps using large -based quad cane on right. Prior Treatments and Tests Farrow wraps Current treatment in wound care for ischial pressure ulcer Wound care nurse consulted today for new wound anterior left lower leg; she dressed with bandage Treatment Goals Patient/Caregiver Goals Decrease lymphedema, improve mobility, obtain new Farrow Wraps, be able to self-manage lymphedema with assist of caregiver Prior Functional Status Baseline Function- ADL's Needs Assist Baseline Function- Mobility Needs Assist Baseline Function- Gait 5 ft with LBQC, CGA Baseline Function- Recreation/Hobbies none, reports watching TV Baseline Function- Other low activity level Current Functional Impairments (Reported) Functional Limitations- ADL's Decreased ability to transfer and perform bed mobility due to weight of legs Functional Limitations- Mobility/Gait Decreased ability to ambulate due to weight of legs Functional Limitations- Work/School disabled PT-OP-C Subjective Start: 04/25/19 14:28 Freq: Status: Active Protocol: Document 06/09/19 16:36 [facility] (Rec: 06/09/19 16:52 [facility] [id number]) OP-PT Subjective Patient Comments Patient Comments No new c/o. Just finished wound care appointment, culture taken of left foot wound, dressing was applied. Patient had indicated that new cushion for his wheelchair had been ordered but in looking at his paperwork from wound care today saw order for PT to evaluate wheelchair cushion due to pressure ulcer. Message left with wheelchair vendor to start process for obtaining new cushion, probable ROHO cushion, for this patient. PT-OP-G Mobility & Gait Start: 04/25/19 14:28 Freq: Status: Active Protocol: Document 04/25/19 14:30 [facility] (Rec: 04/26/19 09:40 [facility] [id number]) OP Mobility Evaluation Bed Mobility Rolling mod assist Supine to and from Sit mod assist Transfers Sit to Stand min assist from high surface Wheelchair Management Type of Wheelchair power w/c Special Equipment elevating legrests, tilt in space, small air mattress Assessment Details Roho cushion has been ordered OP Gait Assessment Gait Gait Assistance Required: Contact Guard Assist Distance (Feet) 5 Assistive Devices Assistive Device Large Based Quad Cane Orthotic/Prosthetic Devices or Brace: No Gait Deviations General Gait Pattern Decreased Stride Length, Decreased Feet Clearance, Flexed Trunk,Wide Based Gait Factors Limiting Gait Function Factors Limiting Gait Function Decreased Strength Comments Gait Comments tends to slide left LE Stair Climbing Evaluation Comments Stair Climbing Comments unable PT-OP-K Range of Motion Start: 04/25/19 14:28 Freq: Status: Active Protocol: Document 04/25/19 14:30 [facility] (Rec: 04/26/19 09:40 [facility] [id number]) Hip Goniometric Range of Motion Hip natacha Hip ROM WFL No Hip ROM Limitations Hip ROM Limitations Muscle Weakness,Swelling Knee Goniometric Range of Motion Knee natacha Knee ROM WFL No Knee ROM Limitations Knee ROM Limitations Muscle Weakness,Swelling Ankle and Foot Goniometric Range of Motion Ankle and Foot natacha Ankle/Foot ROM WFL No Ankle and Foot ROM Limitations ROM Limitations Muscle Weakness,Swelling PT-OP-M Strength Start: 04/25/19 14:28 Freq: Status: Active Protocol: Document 04/25/19 14:30 [facility] (Rec: 04/26/19 09:40 [facility] [id number]) Hip Strength Hip Manual Muscle Testing natacha Comments patient unable to lift against gravity, requires assistance lifting left LE on/off bed Knee Strength Knee Manual Muscle Testing natacha Reason Not Measured Behavior Comments able to extend natacha knees against gravity Ankle/Foot Strength Ankle and Foot Manual Muscle Testing natacha Comments lacking full active motion due to swelling PT-OP-N Lymphedema Start: 04/25/19 14:28 Freq: Status: Active Protocol: Document 04/25/19 14:30 [facility] (Rec: 04/26/19 13:38 [facility] [id number]) Lymphedema Measurements Lower Extremity Circumference Measurements Left MT Heads 35.5 cm Medial Malleolus 35.4 cm 10 cm From Medial Malleolus 39.6 cm 20 cm From Medial Malleolus 59.4 cm 30 cm From Medial Malleolus 55.6 cm 40 cm From Medial Malleolus 65.6 cm 50 cm From Medial Malleolus 71.7 cm Right MT Heads 31.2 cm Medial Malleolus 30.5 cm 10 cm From Medial Malleolus 31.6 cm 20 cm From Medial Malleolus 39.6 cm 30 cm From Medial Malleolus 56.3 cm 40 cm From Medial Malleolus 63.4 cm 50 cm From Medial Malleolus 62.7 cm Comments Lymphedema Comments *measurement distances are from heel midfoot: right 33.1, left 37/4 knee joint: 59.5 right, 63.1 left PT-OP-Q Treatments Start: 04/25/19 14:28 Freq: Status: Active Protocol: Document 06/09/19 16:36 [facility] (Rec: 06/09/19 16:52 [facility] [id number]) Therapeutic Exercises Supine Exercises foot inv/ev Reps/Minutes 10x2 Comments max assist left SAQ Reps/Minutes 10x2 Comments mod assist left hip IR/ER Reps/Minutes 10x Comments max assist left hip abd Reps/Minutes 10x Comments AAROM right, max assist left heel slides Reps/Minutes 10x Comments AAROM right, max assist left glut sets Reps/Minutes 10x quad sets Reps/Minutes 10x ankle pumps Reps/Minutes 10x Comments max assist left Therapeutic Activity Therapeutic Activity transfers Name w/c to and from mat table Reps/Minutes 2x Comments ambulated 10' with mod assist from caregiver Lymphedema Treatment Lymphedema Wrapping Body Location natacha LE's toes to knees Materials Comprilan and Artiflex with foam at ankle to obtain cylindrical shape for wrapping . PT-OP-R Modalities Start: 04/25/19 14:28 Freq: Status: Active Protocol: Document 06/09/19 16:36 [facility] (Rec: 06/09/19 16:52 [facility] [id number]) Compression Pump Treatment Treatment Location Right Leg Pressure Amount (mmHg) (mmHG) 40 Inflation Time (Seconds) 30 Deflation Time (Seconds) 10 Treatment Duration (minutes) 10 Treatment Tolerance Good Left Leg Pressure Amount (mmHg) (mmHG) 40 Inflation Time (Seconds) 30 Deflation Time (Seconds) 10 Treatment Duration (minutes) 30 Treatment Tolerance Good PT-OP-T Assessment and Plan Start: 04/25/19 14:28 Freq: Status: Active Protocol: Document 06/09/19 16:36 [facility] (Rec: 06/09/19 16:52 [facility] [id number]) Physical Therapy Assessment Goals Three Impairment Functional mobility Short Term Goal (STG) Patient will require only min assist for transfers in/out of bed STG Duration 6 wks Palliative Care Physician Goal (LTG) Patient will be able to get in and out of bed independently LTG Duration 12 wks Two Impairment bilateral LE strength and ROM deficits Palliative Care Physician Goal (LTG) Patient to demonstrate LE ROM WNL and improved functional strength to allow him to lift/ move his left LE without assistance. LTG Duration 12 wks One Impairment lymphedema Short Term Goal (STG) Patient to be compliant with home lymphedema wrapping and sequential lymphedema exercises with the assistance of his caregiver. STG Duration 6 wks Care Home Goal (LTG) Decrease and stabilize lymphedema bilateral LE's (no increase or decrease greater than 1 cm over the course of 1 week) and have patient fit with appropriate compression garments; anticipate adjustable lymphedema wraps for long-term edema management . Patient (with assistance of caregiver) to demonstrate independent edema management ability via appropriately using lymphedema pump, applying compression garments, performing sequential lymphedema exercises. LTG Duration 12 wks Assessment Summary Assessment As above, order for PT to evaluate for w/c cushion; patient's current w/c cushion not adequate as evidenced by pressure ulcer being treated by wound care with poor healing at this time. He requires a cushion that provides increased offloading of his buttocks, probable ROHO would provide best benefit but will consult with wheelchair vendor to determine most appropriate cushion. Have emailed but not heard back from [facility] regarding lymphedema pump. Physical Therapy Plan Frequency and Duration Frequency of Treatment 3x/Week Duration of Treatment 12 wks Plan of Care Start Date 04/25/19 Plan of Care End Date 07/26/19 Therapeutic Interventions Therapeutic Interventions Home Exercise Program, Lymphedema Management,Manual Therapy,Patient/Caregiver Education,Self-Care/Home Management,Therapeutic Activities,Therapeutic Exercises Modalities Vasopneumatic Devices Next Visit Focus/Plan Next Note Type Treatment Note Next Visit Plan Consult with wheelchair vendor regarding new wheelchair cushion. Continue to work toward obtaining lymphedema pump for home use and then have patient fit for Farrow wraps both by [facility].
--- NOTE | 2019-06-14 16:58 | PT.OTN ---
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 (06/14/19) Obesity, unspecified (06/14/19) Hemiplegia, unspecified affecting left nondominant side (06/14/19) Lymphedema, not elsewhere classified (06/14/19) Weakness (06/14/19) Physical Therapy Treatment Note PT-OP-A Visit Information Start: 04/25/19 14:28 Freq: Status: Active Protocol: Document 06/14/19 16:48 [facility] (Rec: 06/14/19 16:58 [facility] [id number]) Out-Patient Physical Therapy Visit Information Visit Information Visit Type Treatment Note Visit Start Time 13:00 Visit Stop Time 14:17 Total Visit Minutes 77 Visit Number 7 Number of SLEEP TECHNICIAN Visits 0 PT-OP-B Current Condition Start: 04/25/19 14:28 Freq: Status: Active Protocol: Document 04/25/19 14:30 [facility] (Rec: 04/26/19 09:40 [facility] [id number]) Current Condition History of Current Condition Onset Date 20+ years Current Complaints lymphedema bilateral LE's left greater than right History of Current Condition Patient reports 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 Since that time he has developed lymphedema, been treated for cellulitis and LE wounds. Most recently he was in the hospital from 03/21/19 to 04/05/19 with sepsis, septic shock, and ARF from LE cellulitis. Additionally he was found to have a right ischial pressure ulcer. It was recommended that he go for inpatient rehab but he refused and has been discharged home. He has a caregiver approximately 6 hrs per day. Patient has a history of using Farrow Wraps for his lymphedema but these are worn out and patient has not been able to use for some time. Has not used a lymphedema pump. He presents today for physical therapy reporting a new wound on his left LE. He uses a power wheelchair with tilt in space and elevating legrests . Able to take a few steps using large -based quad cane on right. Prior Treatments and Tests Farrow wraps Current treatment in wound care for ischial pressure ulcer Wound care nurse consulted today for new wound anterior left lower leg; she dressed with bandage Treatment Goals Patient/Caregiver Goals Decrease lymphedema, improve mobility, obtain new Farrow Wraps, be able to self-manage lymphedema with assist of caregiver Prior Functional Status Baseline Function- ADL's Needs Assist Baseline Function- Mobility Needs Assist Baseline Function- Gait 5 ft with LBQC, CGA Baseline Function- Recreation/Hobbies none, reports watching TV Baseline Function- Other low activity level Current Functional Impairments (Reported) Functional Limitations- ADL's Decreased ability to transfer and perform bed mobility due to weight of legs Functional Limitations- Mobility/Gait Decreased ability to ambulate due to weight of legs Functional Limitations- Work/School disabled PT-OP-C Subjective Start: 04/25/19 14:28 Freq: Status: Active Protocol: Document 06/14/19 16:48 [facility] (Rec: 06/14/19 16:58 [facility] [id number]) OP-PT Subjective Patient Comments Patient Comments Reports unable to have a caregiver come with him today so he had to take public transporation. Has heard nothing further regarding any of his ordered DME devices: wheelchair cushion, lymphedema pump, hospital bed. When PT observed increase in edema natacha LE's and questioned patient about recent diet, he indicated a couple bags of potatoe chips over the weekend and 4 sausages this am. PT-OP-G Mobility & Gait Start: 04/25/19 14:28 Freq: Status: Active Protocol: Document 04/25/19 14:30 [facility] (Rec: 04/26/19 09:40 [facility] [id number]) OP Mobility Evaluation Bed Mobility Rolling mod assist Supine to and from Sit mod assist Transfers Sit to Stand min assist from high surface Wheelchair Management Type of Wheelchair power w/c Special Equipment elevating legrests, tilt in space, small air mattress Assessment Details Roho cushion has been ordered OP Gait Assessment Gait Gait Assistance Required: Contact Guard Assist Distance (Feet) 5 Assistive Devices Assistive Device Large Based Quad Cane Orthotic/Prosthetic Devices or Brace: No Gait Deviations General Gait Pattern Decreased Stride Length, Decreased Feet Clearance, Flexed Trunk,Wide Based Gait Factors Limiting Gait Function Factors Limiting Gait Function Decreased Strength Comments Gait Comments tends to slide left LE Stair Climbing Evaluation Comments Stair Climbing Comments unable PT-OP-K Range of Motion Start: 04/25/19 14:28 Freq: Status: Active Protocol: Document 04/25/19 14:30 [facility] (Rec: 04/26/19 09:40 [facility] [id number]) Hip Goniometric Range of Motion Hip natacha Hip ROM WFL No Hip ROM Limitations Hip ROM Limitations Muscle Weakness,Swelling Knee Goniometric Range of Motion Knee natacha Knee ROM WFL No Knee ROM Limitations Knee ROM Limitations Muscle Weakness,Swelling Ankle and Foot Goniometric Range of Motion Ankle and Foot natacha Ankle/Foot ROM WFL No Ankle and Foot ROM Limitations ROM Limitations Muscle Weakness,Swelling PT-OP-M Strength Start: 04/25/19 14:28 Freq: Status: Active Protocol: Document 04/25/19 14:30 [facility] (Rec: 04/26/19 09:40 [facility] [id number]) Hip Strength Hip Manual Muscle Testing natacha Comments patient unable to lift against gravity, requires assistance lifting left LE on/off bed Knee Strength Knee Manual Muscle Testing natacha Reason Not Measured Behavior Comments able to extend natacha knees against gravity Ankle/Foot Strength Ankle and Foot Manual Muscle Testing natacha Comments lacking full active motion due to swelling PT-OP-N Lymphedema Start: 04/25/19 14:28 Freq: Status: Active Protocol: Document 04/25/19 14:30 [facility] (Rec: 04/26/19 13:38 [facility] [id number]) Lymphedema Measurements Lower Extremity Circumference Measurements Left MT Heads 35.5 cm Medial Malleolus 35.4 cm 10 cm From Medial Malleolus 39.6 cm 20 cm From Medial Malleolus 59.4 cm 30 cm From Medial Malleolus 55.6 cm 40 cm From Medial Malleolus 65.6 cm 50 cm From Medial Malleolus 71.7 cm Right MT Heads 31.2 cm Medial Malleolus 30.5 cm 10 cm From Medial Malleolus 31.6 cm 20 cm From Medial Malleolus 39.6 cm 30 cm From Medial Malleolus 56.3 cm 40 cm From Medial Malleolus 63.4 cm 50 cm From Medial Malleolus 62.7 cm Comments Lymphedema Comments *measurement distances are from heel midfoot: right 33.1, left 37/4 knee joint: 59.5 right, 63.1 left PT-OP-Q Treatments Start: 04/25/19 14:28 Freq: Status: Active Protocol: Document 06/14/19 16:48 [facility] (Rec: 06/14/19 16:58 [facility] [id number]) Therapeutic Exercises Supine Exercises foot inv/ev Reps/Minutes 10x2 Comments max assist left SAQ Reps/Minutes 10x2 Comments mod assist left hip IR/ER Reps/Minutes 10x Comments max assist left hip abd Reps/Minutes 10x Comments AAROM right, max assist left heel slides Reps/Minutes 10x Comments AAROM right, max assist left glut sets Reps/Minutes 10x quad sets Reps/Minutes 10x ankle pumps Reps/Minutes 10x Comments max assist left Therapeutic Activity Therapeutic Activity transfers Name w/c to and from mat table Reps/Minutes 2x Comments ambulated 10' with quad cane, min assist from PT sit to supine and supine to sit with max assist for left LE, min UE upper body Lymphedema Treatment Lymphedema Wrapping Body Location natacha LE's toes to knees Materials Comprilan and Artiflex with foam at ankle to obtain cylindrical shape for wrapping . PT-OP-R Modalities Start: 04/25/19 14:28 Freq: Status: Active Protocol: Document 06/14/19 16:48 [facility] (Rec: 06/14/19 16:58 [facility] [id number]) Compression Pump Treatment Treatment Location Right Leg Pressure Amount (mmHg) (mmHG) 40 Inflation Time (Seconds) 30 Deflation Time (Seconds) 10 Treatment Duration (minutes) 10 Treatment Tolerance Good Left Leg Pressure Amount (mmHg) (mmHG) 40 Inflation Time (Seconds) 30 Deflation Time (Seconds) 10 Treatment Duration (minutes) 30 Treatment Tolerance Good PT-OP-T Assessment and Plan Start: 04/25/19 14:28 Freq: Status: Active Protocol: Document 06/14/19 16:48 [facility] (Rec: 06/14/19 16:58 [facility] [id number]) Physical Therapy Assessment Goals Three Impairment Functional mobility Short Term Goal (STG) Patient will require only min assist for transfers in/out of bed STG Duration 6 wks Half-Way Goal (LTG) Patient will be able to get in and out of bed independently LTG Duration 12 wks Two Impairment bilateral LE strength and ROM deficits Half-Way Goal (LTG) Patient to demonstrate LE ROM WNL and improved functional strength to allow him to lift/ move his left LE without assistance. LTG Duration 12 wks One Impairment lymphedema Short Term Goal (STG) Patient to be compliant with home lymphedema wrapping and sequential lymphedema exercises with the assistance of his caregiver. STG Duration 6 wks Half-Way Goal (LTG) Decrease and stabilize lymphedema bilateral LE's (no increase or decrease greater than 1 cm over the course of 1 week) and have patient fit with appropriate compression garments; anticipate adjustable lymphedema wraps for long-term edema management . Patient (with assistance of caregiver) to demonstrate independent edema management ability via appropriately using lymphedema pump, applying compression garments, performing sequential lymphedema exercises. LTG Duration 12 wks Assessment Summary Assessment Paperwork has been sent to w/c vendor, again contacted patient's casemanager by phone and [facility] via email today to check on status of DME equipment for patient; left messages. Circumferential measurements increased bilateral LE's today , appears at least partially related to his increase in sodium intake over past few days. Also, his LE's were not in lymphedema wraps today and had been hanging dependent during transporation; needed cues to remind him to increase time with LE's elevated. Patient requires a home lymphedema pump, hospital bed with elevating legrests, a new w/c seat cushion, and Farrow wraps for LE's when approved; all information has been sent from PT to help with obtaining this equipment. Physical Therapy Plan Frequency and Duration Frequency of Treatment 3x/Week Duration of Treatment 12 wks Plan of Care Start Date 04/25/19 Plan of Care End Date 07/26/19 Therapeutic Interventions Therapeutic Interventions Home Exercise Program, Lymphedema Management,Manual Therapy,Patient/Caregiver Education,Self-Care/Home Management,Therapeutic Activities,Therapeutic Exercises Modalities Vasopneumatic Devices Next Visit Focus/Plan Next Note Type Treatment Note Next Visit Plan Continue PT per POC for lymphedema management.
--- NOTE | 2019-06-16 16:43 | PT.OTN ---
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 (06/16/19) Obesity, unspecified (06/16/19) Hemiplegia, unspecified affecting left nondominant side (06/16/19) Lymphedema, not elsewhere classified (06/16/19) Weakness (06/16/19) Physical Therapy Treatment Note PT-OP-A Visit Information Start: 04/25/19 14:28 Freq: Status: Active Protocol: Document 06/16/19 16:27 [facility] (Rec: 06/16/19 16:43 [facility] [id number]) Out-Patient Physical Therapy Visit Information Visit Information Visit Type Treatment Note Visit Start Time 13:00 Visit Stop Time 14:22 Total Visit Minutes 82 Visit Number 8 Number of EDUCATIONAL TECHNICIAN Visits 0 PT-OP-B Current Condition Start: 04/25/19 14:28 Freq: Status: Active Protocol: Document 04/25/19 14:30 [facility] (Rec: 04/26/19 09:40 [facility] [id number]) Current Condition History of Current Condition Onset Date 20+ years Current Complaints lymphedema bilateral LE's left greater than right History of Current Condition Patient reports 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 Since that time he has developed lymphedema, been treated for cellulitis and LE wounds. Most recently he was in the hospital from 03/21/19 to 04/05/19 with sepsis, septic shock, and ARF from LE cellulitis. Additionally he was found to have a right ischial pressure ulcer. It was recommended that he go for inpatient rehab but he refused and has been discharged home. He has a caregiver approximately 6 hrs per day. Patient has a history of using Farrow Wraps for his lymphedema but these are worn out and patient has not been able to use for some time. Has not used a lymphedema pump. He presents today for physical therapy reporting a new wound on his left LE. He uses a power wheelchair with tilt in space and elevating legrests . Able to take a few steps using large -based quad cane on right. Prior Treatments and Tests Farrow wraps Current treatment in wound care for ischial pressure ulcer Wound care nurse consulted today for new wound anterior left lower leg; she dressed with bandage Treatment Goals Patient/Caregiver Goals Decrease lymphedema, improve mobility, obtain new Farrow Wraps, be able to self-manage lymphedema with assist of caregiver Prior Functional Status Baseline Function- ADL's Needs Assist Baseline Function- Mobility Needs Assist Baseline Function- Gait 5 ft with LBQC, CGA Baseline Function- Recreation/Hobbies none, reports watching TV Baseline Function- Other low activity level Current Functional Impairments (Reported) Functional Limitations- ADL's Decreased ability to transfer and perform bed mobility due to weight of legs Functional Limitations- Mobility/Gait Decreased ability to ambulate due to weight of legs Functional Limitations- Work/School disabled PT-OP-C Subjective Start: 04/25/19 14:28 Freq: Status: Active Protocol: Document 06/16/19 16:27 [facility] (Rec: 06/16/19 16:43 [facility] [id number]) OP-PT Subjective Patient Comments Patient Comments Patient reports he had less sodium in diet. Came from wound care appointment. After consultation with wound care physician he ordered patient to tilt back his chair and elevate footrests every 15 minutes for 3 minutes all waking hours for pressure relief and discontinue using waffle cushion over his w/c cushion. W/c to be serviced in early June. PT-OP-G Mobility & Gait Start: 04/25/19 14:28 Freq: Status: Active Protocol: Document 04/25/19 14:30 [facility] (Rec: 04/26/19 09:40 [facility] [id number]) OP Mobility Evaluation Bed Mobility Rolling mod assist Supine to and from Sit mod assist Transfers Sit to Stand min assist from high surface Wheelchair Management Type of Wheelchair power w/c Special Equipment elevating legrests, tilt in space, small air mattress Assessment Details Roho cushion has been ordered OP Gait Assessment Gait Gait Assistance Required: Contact Guard Assist Distance (Feet) 5 Assistive Devices Assistive Device Large Based Quad Cane Orthotic/Prosthetic Devices or Brace: No Gait Deviations General Gait Pattern Decreased Stride Length, Decreased Feet Clearance, Flexed Trunk,Wide Based Gait Factors Limiting Gait Function Factors Limiting Gait Function Decreased Strength Comments Gait Comments tends to slide left LE Stair Climbing Evaluation Comments Stair Climbing Comments unable PT-OP-K Range of Motion Start: 04/25/19 14:28 Freq: Status: Active Protocol: Document 04/25/19 14:30 [facility] (Rec: 04/26/19 09:40 [facility] [id number]) Hip Goniometric Range of Motion Hip natacha Hip ROM WFL No Hip ROM Limitations Hip ROM Limitations Muscle Weakness,Swelling Knee Goniometric Range of Motion Knee natacha Knee ROM WFL No Knee ROM Limitations Knee ROM Limitations Muscle Weakness,Swelling Ankle and Foot Goniometric Range of Motion Ankle and Foot natacha Ankle/Foot ROM WFL No Ankle and Foot ROM Limitations ROM Limitations Muscle Weakness,Swelling PT-OP-M Strength Start: 04/25/19 14:28 Freq: Status: Active Protocol: Document 04/25/19 14:30 [facility] (Rec: 04/26/19 09:40 [facility] [id number]) Hip Strength Hip Manual Muscle Testing natacha Comments patient unable to lift against gravity, requires assistance lifting left LE on/off bed Knee Strength Knee Manual Muscle Testing natacha Reason Not Measured Behavior Comments able to extend natacha knees against gravity Ankle/Foot Strength Ankle and Foot Manual Muscle Testing natacha Comments lacking full active motion due to swelling PT-OP-N Lymphedema Start: 04/25/19 14:28 Freq: Status: Active Protocol: Document 04/25/19 14:30 [facility] (Rec: 04/26/19 13:38 [facility] [id number]) Lymphedema Measurements Lower Extremity Circumference Measurements Left MT Heads 35.5 cm Medial Malleolus 35.4 cm 10 cm From Medial Malleolus 39.6 cm 20 cm From Medial Malleolus 59.4 cm 30 cm From Medial Malleolus 55.6 cm 40 cm From Medial Malleolus 65.6 cm 50 cm From Medial Malleolus 71.7 cm Right MT Heads 31.2 cm Medial Malleolus 30.5 cm 10 cm From Medial Malleolus 31.6 cm 20 cm From Medial Malleolus 39.6 cm 30 cm From Medial Malleolus 56.3 cm 40 cm From Medial Malleolus 63.4 cm 50 cm From Medial Malleolus 62.7 cm Comments Lymphedema Comments *measurement distances are from heel midfoot: right 33.1, left 37/4 knee joint: 59.5 right, 63.1 left PT-OP-Q Treatments Start: 04/25/19 14:28 Freq: Status: Active Protocol: Document 06/16/19 16:27 [facility] (Rec: 06/16/19 16:43 [facility] [id number]) Therapeutic Exercises Supine Exercises abdominal breathing Reps/Minutes 5x2 abdominal crunch Reps/Minutes 10x foot inv/ev Reps/Minutes 10x2 Comments max assist left SAQ Reps/Minutes 10x2 Comments mod assist left hip IR/ER Reps/Minutes 10x Comments max assist left hip abd Reps/Minutes 10x Comments AAROM right, max assist left heel slides Reps/Minutes 10x Comments AAROM right, max assist left glut sets Reps/Minutes 10x quad sets Reps/Minutes 10x ankle pumps Reps/Minutes 10x Comments max assist left Therapeutic Activity Therapeutic Activity transfers Name w/c to and from mat table Reps/Minutes 2x Comments ambulated 10' with quad cane, min assist from PT sit to supine and supine to sit with max assist for left LE, min UE upper body Self-Care/Home Management Treatment Education Caregiver Education pressure relief orders from physician care of lymphedema wraps to prevent loss of elasticity Lymphedema Treatment Manual Lymphatic Drainage Location lymph node stationary circles left groin Lymphedema Wrapping Body Location natacha LE's toes to knees Materials Comprilan and Artiflex with foam at ankle to obtain cylindrical shape for wrapping . Sequential Lymphedema Exercises Comments see as listed under ther ex. Encouraged increased frequency of exercises as tolerated. Patient Education Sequential Lymphedema Exercises continue to review each session PT-OP-R Modalities Start: 04/25/19 14:28 Freq: Status: Active Protocol: Document 06/16/19 16:27 [facility] (Rec: 06/16/19 16:43 [facility] [id number]) Compression Pump Treatment Treatment Location Right Leg Pressure Amount (mmHg) (mmHG) 40 Inflation Time (Seconds) 30 Deflation Time (Seconds) 10 Treatment Duration (minutes) 10 Treatment Tolerance Good Left Leg Pressure Amount (mmHg) (mmHG) 40 Inflation Time (Seconds) 30 Deflation Time (Seconds) 10 Treatment Duration (minutes) 30 Treatment Tolerance Good PT-OP-T Assessment and Plan Start: 04/25/19 14:28 Freq: Status: Active Protocol: Document 06/16/19 16:27 [facility] (Rec: 06/16/19 16:43 [facility] [id number]) Physical Therapy Assessment Goals Three Impairment Functional mobility Short Term Goal (STG) Patient will require only min assist for transfers in/out of bed STG Duration 6 wks Manager Utilities Goal (LTG) Patient will be able to get in and out of bed independently LTG Duration 12 wks Two Impairment bilateral LE strength and ROM deficits Manager Utilities Goal (LTG) Patient to demonstrate LE ROM WNL and improved functional strength to allow him to lift/ move his left LE without assistance. LTG Duration 12 wks One Impairment lymphedema Short Term Goal (STG) Patient to be compliant with home lymphedema wrapping and sequential lymphedema exercises with the assistance of his caregiver. STG Duration 6 wks Fci Goal (LTG) Decrease and stabilize lymphedema bilateral LE's (no increase or decrease greater than 1 cm over the course of 1 week) and have patient fit with appropriate compression garments; anticipate adjustable lymphedema wraps for long-term edema management . Patient (with assistance of caregiver) to demonstrate independent edema management ability via appropriately using lymphedema pump, applying compression garments, performing sequential lymphedema exercises. LTG Duration 12 wks Assessment Summary Assessment Patient lymphedema increased again today per measurements. Feel his compression wraps are losing elasticity quickly due to improper care at home; instructed in proper care at home. 2 new wraps used today. Continue to encourage decreased sodium intake, elevate LE's, increase exercise. Physical Therapy Plan Frequency and Duration Frequency of Treatment 3x/Week Duration of Treatment 12 wks Plan of Care Start Date 04/25/19 Plan of Care End Date 07/26/19 Therapeutic Interventions Therapeutic Interventions Home Exercise Program, Lymphedema Management,Manual Therapy,Patient/Caregiver Education,Self-Care/Home Management,Therapeutic Activities,Therapeutic Exercises Modalities Vasopneumatic Devices Next Visit Focus/Plan Next Note Type Treatment Note Next Visit Plan Continue PT per POC for lymphedema management.
--- NOTE | 2019-06-21 16:23 | PT.OTN ---
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 (06/21/19) Obesity, unspecified (06/21/19) Hemiplegia, unspecified affecting left nondominant side (06/21/19) Lymphedema, not elsewhere classified (06/21/19) Weakness (06/21/19) Physical Therapy Treatment Note PT-OP-A Visit Information Start: 04/25/19 14:28 Freq: Status: Active Protocol: Document 06/21/19 16:13 SAK (Rec: 06/21/19 16:23 SAK [id number]) Out-Patient Physical Therapy Visit Information Visit Information Visit Type Treatment Note Visit Start Time 13:00 Visit Stop Time 14:22 Total Visit Minutes 82 Visit Number 8 Number of RN IMAGING Visits 0 PT-OP-B Current Condition Start: 04/25/19 14:28 Freq: Status: Active Protocol: Document 04/25/19 14:30 SAK (Rec: 04/26/19 09:40 SAK [id number]) Current Condition History of Current Condition Onset Date 20+ years Current Complaints lymphedema bilateral LE's left greater than right History of Current Condition Patient reports 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 Since that time he has developed lymphedema, been treated for cellulitis and LE wounds. Most recently he was in the hospital from 03/21/19 to 04/05/19 with sepsis, septic shock, and ARF from LE cellulitis. Additionally he was found to have a right ischial pressure ulcer. It was recommended that he go for inpatient rehab but he refused and has been discharged home. He has a caregiver approximately 6 hrs per day. Patient has a history of using Farrow Wraps for his lymphedema but these are worn out and patient has not been able to use for some time. Has not used a lymphedema pump. He presents today for physical therapy reporting a new wound on his left LE. He uses a power wheelchair with tilt in space and elevating legrests . Able to take a few steps using large -based quad cane on right. Prior Treatments and Tests Farrow wraps Current treatment in wound care for ischial pressure ulcer Wound care nurse consulted today for new wound anterior left lower leg; she dressed with bandage Treatment Goals Patient/Caregiver Goals Decrease lymphedema, improve mobility, obtain new Farrow Wraps, be able to self-manage lymphedema with assist of caregiver Prior Functional Status Baseline Function- ADL's Needs Assist Baseline Function- Mobility Needs Assist Baseline Function- Gait 5 ft with LBQC, CGA Baseline Function- Recreation/Hobbies none, reports watching TV Baseline Function- Other low activity level Current Functional Impairments (Reported) Functional Limitations- ADL's Decreased ability to transfer and perform bed mobility due to weight of legs Functional Limitations- Mobility/Gait Decreased ability to ambulate due to weight of legs Functional Limitations- Work/School disabled PT-OP-C Subjective Start: 04/25/19 14:28 Freq: Status: Active Protocol: Document 06/21/19 16:13 SAK (Rec: 06/21/19 16:23 SAK [id number]) OP-PT Subjective Patient Comments Patient Comments Had wound care appointment prior to PT. Was started on antiobiotics 06/16/19, thinks legs are feeling better. Caregiver Hasmukh present for treatment today. Patient reports he will be getting new recliner today, will be able to recline and elevate his legs more easily and be more comfortable. PT-OP-G Mobility & Gait Start: 04/25/19 14:28 Freq: Status: Active Protocol: Document 04/25/19 14:30 SAK (Rec: 04/26/19 09:40 SAK [id number]) OP Mobility Evaluation Bed Mobility Rolling mod assist Supine to and from Sit mod assist Transfers Sit to Stand min assist from high surface Wheelchair Management Type of Wheelchair power w/c Special Equipment elevating legrests, tilt in space, small air mattress Assessment Details Roho cushion has been ordered OP Gait Assessment Gait Gait Assistance Required: Contact Guard Assist Distance (Feet) 5 Assistive Devices Assistive Device Large Based Quad Cane Orthotic/Prosthetic Devices or Brace: No Gait Deviations General Gait Pattern Decreased Stride Length, Decreased Feet Clearance, Flexed Trunk,Wide Based Gait Factors Limiting Gait Function Factors Limiting Gait Function Decreased Strength Comments Gait Comments tends to slide left LE Stair Climbing Evaluation Comments Stair Climbing Comments unable PT-OP-K Range of Motion Start: 04/25/19 14:28 Freq: Status: Active Protocol: Document 04/25/19 14:30 SAK (Rec: 04/26/19 09:40 SAK [id number]) Hip Goniometric Range of Motion Hip natacha Hip ROM WFL No Hip ROM Limitations Hip ROM Limitations Muscle Weakness,Swelling Knee Goniometric Range of Motion Knee natacha Knee ROM WFL No Knee ROM Limitations Knee ROM Limitations Muscle Weakness,Swelling Ankle and Foot Goniometric Range of Motion Ankle and Foot natacha Ankle/Foot ROM WFL No Ankle and Foot ROM Limitations ROM Limitations Muscle Weakness,Swelling PT-OP-M Strength Start: 04/25/19 14:28 Freq: Status: Active Protocol: Document 04/25/19 14:30 [facility] (Rec: 04/26/19 09:40 [facility] [id number]) Hip Strength Hip Manual Muscle Testing natacha Comments patient unable to lift against gravity, requires assistance lifting left LE on/off bed Knee Strength Knee Manual Muscle Testing natacha Reason Not Measured Behavior Comments able to extend natacha knees against gravity Ankle/Foot Strength Ankle and Foot Manual Muscle Testing natacha Comments lacking full active motion due to swelling PT-OP-N Lymphedema Start: 04/25/19 14:28 Freq: Status: Active Protocol: Document 04/25/19 14:30 [facility] (Rec: 04/26/19 13:38 [facility] [id number]) Lymphedema Measurements Lower Extremity Circumference Measurements Left MT Heads 35.5 cm Medial Malleolus 35.4 cm 10 cm From Medial Malleolus 39.6 cm 20 cm From Medial Malleolus 59.4 cm 30 cm From Medial Malleolus 55.6 cm 40 cm From Medial Malleolus 65.6 cm 50 cm From Medial Malleolus 71.7 cm Right MT Heads 31.2 cm Medial Malleolus 30.5 cm 10 cm From Medial Malleolus 31.6 cm 20 cm From Medial Malleolus 39.6 cm 30 cm From Medial Malleolus 56.3 cm 40 cm From Medial Malleolus 63.4 cm 50 cm From Medial Malleolus 62.7 cm Comments Lymphedema Comments *measurement distances are from heel midfoot: right 33.1, left 37/4 knee joint: 59.5 right, 63.1 left PT-OP-Q Treatments Start: 04/25/19 14:28 Freq: Status: Active Protocol: Document 06/21/19 16:13 [facility] (Rec: 06/21/19 16:23 [facility] [id number]) Therapeutic Exercises Supine Exercises abdominal breathing Reps/Minutes 5x2 abdominal crunch Reps/Minutes 10x foot inv/ev Reps/Minutes 10x2 Comments max assist left SAQ Reps/Minutes 10x2 Comments mod assist left hip IR/ER Reps/Minutes 10x Comments max assist left hip abd Reps/Minutes 10x Comments AAROM right, max assist left heel slides Reps/Minutes 10x Comments AAROM right, max assist left glut sets Reps/Minutes 10x quad sets Reps/Minutes 10x ankle pumps Supine Exercise Name pumps, inve/ev, circles Reps/Minutes 10x Comments max assist left Therapeutic Activity Therapeutic Activity transfers Name w/c to and from mat table Reps/Minutes 2x Comments ambulated 5' with quad cane, min assist from caregiver ( reports didn't feel up to as much gait today.) sit to supine and supine to sit with max assist for left LE, min UE upper body Self-Care/Home Management Treatment Education Caregiver Education reviewed pressure relief orders with patient, importance. Lymphedema Treatment Manual Lymphatic Drainage Location lymph node stationary circles left groin, abdominal treatment Lymphedema Wrapping Body Location natacha LE's toes to knees Materials Comprilan and Artiflex with foam at ankle to obtain cylindrical shape for wrapping . Sequential Lymphedema Exercises Comments see as listed under ther ex. Encouraged increased frequency of exercises as tolerated. PT-OP-R Modalities Start: 04/25/19 14:28 Freq: Status: Active Protocol: Document 06/21/19 16:13 [facility] (Rec: 06/21/19 16:23 [facility] [id number]) Compression Pump Treatment Treatment Location Right Leg Pressure Amount (mmHg) (mmHG) 40 Inflation Time (Seconds) 30 Deflation Time (Seconds) 10 Treatment Duration (minutes) 10 Treatment Tolerance Good Left Leg Pressure Amount (mmHg) (mmHG) 40 Inflation Time (Seconds) 30 Deflation Time (Seconds) 10 Treatment Duration (minutes) 30 Treatment Tolerance Good PT-OP-T Assessment and Plan Start: 04/25/19 14:28 Freq: Status: Active Protocol: Document 06/21/19 16:13 [facility] (Rec: 06/21/19 16:23 [facility] [id number]) Physical Therapy Assessment Goals Three Impairment Functional mobility Short Term Goal (STG) Patient will require only min assist for transfers in/out of bed 06/21/19: some goal progress STG Duration 6 wks Nursing Home Goal (LTG) Patient will be able to get in and out of bed independently LTG Duration 12 wks Two Impairment bilateral LE strength and ROM deficits Rotary Drier Goal (LTG) Patient to demonstrate LE ROM WNL and improved functional strength to allow him to lift/ move his left LE without assistance. 06/21/19: no significan progress due to heaviness from lymphedema LTG Duration 12 wks One Impairment lymphedema Short Term Goal (STG) Patient to be compliant with home lymphedema wrapping and sequential lymphedema exercises with the assistance of his caregiver. 06/21/19: good goal progress STG Duration 6 wks Nursing Home Goal (LTG) Decrease and stabilize lymphedema bilateral LE's (no increase or decrease greater than 1 cm over the course of 1 week) and have patient fit with appropriate compression garments; anticipate adjustable lymphedema wraps for long-term edema management . Patient (with assistance of caregiver) to demonstrate independent edema management ability via appropriately using lymphedema pump, applying compression garments, performing sequential lymphedema exercises. 06/21/19: still awaiting lymphedema pump and approval for lymphedema wraps. Patient also still awaiting hospital bed which was ordered prior to lymphedema pump and wraps. LTG Duration 12 wks Assessment Summary Assessment Decrease in circumferential measurements noted today and also improvement in right LE strength. Physical Therapy Plan Frequency and Duration Frequency of Treatment 3x/Week Duration of Treatment 12 wks Plan of Care Start Date 04/25/19 Plan of Care End Date 07/26/19 Therapeutic Interventions Therapeutic Interventions Home Exercise Program, Lymphedema Management,Manual Therapy,Patient/Caregiver Education,Self-Care/Home Management,Therapeutic Activities,Therapeutic Exercises Modalities Vasopneumatic Devices Next Visit Focus/Plan Next Note Type Treatment Note Next Visit Plan Continue PT per POC for lymphedema management.
--- NOTE | 2019-07-05 16:52 | PT.OTN ---
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 (07/05/19) Obesity, unspecified (07/05/19) Hemiplegia, unspecified affecting left nondominant side (07/05/19) Lymphedema, not elsewhere classified (07/05/19) Weakness (07/05/19) Physical Therapy Treatment Note PT-OP-A Visit Information Start: 04/25/19 14:28 Freq: Status: Active Protocol: Document 07/05/19 16:47 GGD (Rec: 07/05/19 16:52 GGD [id number]) Out-Patient Physical Therapy Visit Information Visit Information Visit Type Treatment Note Visit Start Time 14:00 Visit Stop Time 15:20 Total Visit Minutes 80 Visit Number 9 Number of MEMBERSHIP ADVISOR Visits 1 PT-OP-B Current Condition Start: 04/25/19 14:28 Freq: Status: Active Protocol: Document 04/25/19 14:30 SAK (Rec: 04/26/19 09:40 SAK [id number]) Current Condition History of Current Condition Onset Date 20+ years Current Complaints lymphedema bilateral LE's left greater than right History of Current Condition Patient reports 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 Since that time he has developed lymphedema, been treated for cellulitis and LE wounds. Most recently he was in the hospital from 03/21/19 to 04/05/19 with sepsis, septic shock, and ARF from LE cellulitis. Additionally he was found to have a right ischial pressure ulcer. It was recommended that he go for inpatient rehab but he refused and has been discharged home. He has a caregiver approximately 6 hrs per day. Patient has a history of using Farrow Wraps for his lymphedema but these are worn out and patient has not been able to use for some time. Has not used a lymphedema pump. He presents today for physical therapy reporting a new wound on his left LE. He uses a power wheelchair with tilt in space and elevating legrests . Able to take a few steps using large -based quad cane on right. Prior Treatments and Tests Farrow wraps Current treatment in wound care for ischial pressure ulcer Wound care nurse consulted today for new wound anterior left lower leg; she dressed with bandage Treatment Goals Patient/Caregiver Goals Decrease lymphedema, improve mobility, obtain new Farrow Wraps, be able to self-manage lymphedema with assist of caregiver Prior Functional Status Baseline Function- ADL's Needs Assist Baseline Function- Mobility Needs Assist Baseline Function- Gait 5 ft with LBQC, CGA Baseline Function- Recreation/Hobbies none, reports watching TV Baseline Function- Other low activity level Current Functional Impairments (Reported) Functional Limitations- ADL's Decreased ability to transfer and perform bed mobility due to weight of legs Functional Limitations- Mobility/Gait Decreased ability to ambulate due to weight of legs Functional Limitations- Work/School disabled PT-OP-C Subjective Start: 04/25/19 14:28 Freq: Status: Active Protocol: Document 07/05/19 16:47 GGD (Rec: 07/05/19 16:52 GGD [id number]) OP-PT Subjective Patient Comments Patient Comments Pt states his back is sore after his wound care appointment. PT-OP-G Mobility & Gait Start: 04/25/19 14:28 Freq: Status: Active Protocol: Document 04/25/19 14:30 SAK (Rec: 04/26/19 09:40 SAK [id number]) OP Mobility Evaluation Bed Mobility Rolling mod assist Supine to and from Sit mod assist Transfers Sit to Stand min assist from high surface Wheelchair Management Type of Wheelchair power w/c Special Equipment elevating legrests, tilt in space, small air mattress Assessment Details Roho cushion has been ordered OP Gait Assessment Gait Gait Assistance Required: Contact Guard Assist Distance (Feet) 5 Assistive Devices Assistive Device Large Based Quad Cane Orthotic/Prosthetic Devices or Brace: No Gait Deviations General Gait Pattern Decreased Stride Length, Decreased Feet Clearance, Flexed Trunk,Wide Based Gait Factors Limiting Gait Function Factors Limiting Gait Function Decreased Strength Comments Gait Comments tends to slide left LE Stair Climbing Evaluation Comments Stair Climbing Comments unable PT-OP-K Range of Motion Start: 04/25/19 14:28 Freq: Status: Active Protocol: Document 04/25/19 14:30 SAK (Rec: 04/26/19 09:40 SAK [id number]) Hip Goniometric Range of Motion Hip natacha Hip ROM WFL No Hip ROM Limitations Hip ROM Limitations Muscle Weakness,Swelling Knee Goniometric Range of Motion Knee natacha Knee ROM WFL No Knee ROM Limitations Knee ROM Limitations Muscle Weakness,Swelling Ankle and Foot Goniometric Range of Motion Ankle and Foot natacha Ankle/Foot ROM WFL No Ankle and Foot ROM Limitations ROM Limitations Muscle Weakness,Swelling PT-OP-M Strength Start: 04/25/19 14:28 Freq: Status: Active Protocol: Document 04/25/19 14:30 SAK (Rec: 04/26/19 09:40 SAK [id number]) Hip Strength Hip Manual Muscle Testing natacha Comments patient unable to lift against gravity, requires assistance lifting left LE on/off bed Knee Strength Knee Manual Muscle Testing natacha Reason Not Measured Behavior Comments able to extend natacha knees against gravity Ankle/Foot Strength Ankle and Foot Manual Muscle Testing natacha Comments lacking full active motion due to swelling PT-OP-N Lymphedema Start: 04/25/19 14:28 Freq: Status: Active Protocol: Document 04/25/19 14:30 SAK (Rec: 04/26/19 13:38 SAK [id number]) Lymphedema Measurements Lower Extremity Circumference Measurements Left MT Heads 35.5 cm Medial Malleolus 35.4 cm 10 cm From Medial Malleolus 39.6 cm 20 cm From Medial Malleolus 59.4 cm 30 cm From Medial Malleolus 55.6 cm 40 cm From Medial Malleolus 65.6 cm 50 cm From Medial Malleolus 71.7 cm Right MT Heads 31.2 cm Medial Malleolus 30.5 cm 10 cm From Medial Malleolus 31.6 cm 20 cm From Medial Malleolus 39.6 cm 30 cm From Medial Malleolus 56.3 cm 40 cm From Medial Malleolus 63.4 cm 50 cm From Medial Malleolus 62.7 cm Comments Lymphedema Comments *measurement distances are from heel midfoot: right 33.1, left 37/4 knee joint: 59.5 right, 63.1 left PT-OP-Q Treatments Start: 04/25/19 14:28 Freq: Status: Active Protocol: Document 07/05/19 16:47 GGD (Rec: 07/05/19 16:52 GGD [id number]) Therapeutic Exercises Supine Exercises abdominal breathing Reps/Minutes 5x2 abdominal crunch Reps/Minutes 10x foot inv/ev Reps/Minutes 10x2 Comments max assist left SAQ Reps/Minutes 10x2 Comments mod assist left hip IR/ER Reps/Minutes 10x Comments max assist left hip abd Reps/Minutes 10x Comments AAROM right, max assist left heel slides Reps/Minutes 10x Comments AAROM right, max assist left glut sets Reps/Minutes 10x quad sets Reps/Minutes 10x ankle pumps Supine Exercise Name pumps, inve/ev, circles Reps/Minutes 10x Comments max assist left Lymphedema Treatment Lymphedema Wrapping Body Location natacha LE's toes to knees Materials Comprilan and Artiflex with foam at ankle to obtain cylindrical shape for wrapping . PT-OP-R Modalities Start: 04/25/19 14:28 Freq: Status: Active Protocol: Document 07/05/19 16:47 GGD (Rec: 07/05/19 16:52 GGD [id number]) Compression Pump Treatment Treatment Location Right Leg Pressure Amount (mmHg) (mmHG) 40 Inflation Time (Seconds) 30 Deflation Time (Seconds) 10 Treatment Duration (minutes) 10 Treatment Tolerance Good Left Leg Pressure Amount (mmHg) (mmHG) 40 Inflation Time (Seconds) 30 Deflation Time (Seconds) 10 Treatment Duration (minutes) 30 Treatment Tolerance Good PT-OP-T Assessment and Plan Start: 04/25/19 14:28 Freq: Status: Active Protocol: Document 07/05/19 16:47 GGD (Rec: 07/05/19 16:52 GGD [id number]) Physical Therapy Assessment Goals Three Impairment Functional mobility Short Term Goal (STG) Patient will require only min assist for transfers in/out of bed 06/21/19: some goal progress STG Duration 6 wks Billing Manager Goal (LTG) Patient will be able to get in and out of bed independently LTG Duration 12 wks Two Impairment bilateral LE strength and ROM deficits Billing Manager Goal (LTG) Patient to demonstrate LE ROM WNL and improved functional strength to allow him to lift/ move his left LE without assistance. 06/21/19: no significan progress due to heaviness from lymphedema LTG Duration 12 wks One Impairment lymphedema Short Term Goal (STG) Patient to be compliant with home lymphedema wrapping and sequential lymphedema exercises with the assistance of his caregiver. 06/21/19: good goal progress STG Duration 6 wks Retirement Goal (LTG) Decrease and stabilize lymphedema bilateral LE's (no increase or decrease greater than 1 cm over the course of 1 week) and have patient fit with appropriate compression garments; anticipate adjustable lymphedema wraps for long-term edema management . Patient (with assistance of caregiver) to demonstrate independent edema management ability via appropriately using lymphedema pump, applying compression garments, performing sequential lymphedema exercises. 9/24/19: still awaiting lymphedema pump and approval for lymphedema wraps. Patient also still awaiting hospital bed which was ordered prior to lymphedema pump and wraps. LTG Duration 12 wks Physical Therapy Plan Frequency and Duration Frequency of Treatment 3x/Week Duration of Treatment 12 wks Plan of Care Start Date 04/25/19 Plan of Care End Date 07/26/19 Next Visit Focus/Plan Next Note Type Progress Note Next Visit Plan Continue PT per POC for lymphedema management.
--- NOTE | 2019-07-12 17:19 | PT.OTN ---
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 (07/12/19) Obesity, unspecified (07/12/19) Hemiplegia, unspecified affecting left nondominant side (07/12/19) Lymphedema, not elsewhere classified (07/12/19) Weakness (07/12/19) Physical Therapy Treatment Note PT-OP-A Visit Information Start: 04/25/19 14:28 Freq: Status: Active Protocol: Document 07/12/19 17:09 GGD (Rec: 07/12/19 17:18 GGD [email or web address]) Out-Patient Physical Therapy Visit Information Visit Information Visit Type Treatment Note Visit Start Time 15:15 Visit Stop Time 14:10 Total Visit Minutes 55 Visit Number 10 Number of FORGING MACHINE OPERATOR Visits 2 PT-OP-B Current Condition Start: 04/25/19 14:28 Freq: Status: Active Protocol: Document 04/25/19 14:30 SAK (Rec: 04/26/19 09:40 SAK [id number]) Current Condition History of Current Condition Onset Date 20+ years Current Complaints lymphedema bilateral LE's left greater than right History of Current Condition Patient reports 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 Since that time he has developed lymphedema, been treated for cellulitis and LE wounds. Most recently he was in the hospital from 03/21/19 to 04/05/19 with sepsis, septic shock, and ARF from LE cellulitis. Additionally he was found to have a right ischial pressure ulcer. It was recommended that he go for inpatient rehab but he refused and has been discharged home. He has a caregiver approximately 6 hrs per day. Patient has a history of using Farrow Wraps for his lymphedema but these are worn out and patient has not been able to use for some time. Has not used a lymphedema pump. He presents today for physical therapy reporting a new wound on his left LE. He uses a power wheelchair with tilt in space and elevating legrests . Able to take a few steps using large -based quad cane on right. Prior Treatments and Tests Farrow wraps Current treatment in wound care for ischial pressure ulcer Wound care nurse consulted today for new wound anterior left lower leg; she dressed with bandage Treatment Goals Patient/Caregiver Goals Decrease lymphedema, improve mobility, obtain new Farrow Wraps, be able to self-manage lymphedema with assist of caregiver Prior Functional Status Baseline Function- ADL's Needs Assist Baseline Function- Mobility Needs Assist Baseline Function- Gait 5 ft with LBQC, CGA Baseline Function- Recreation/Hobbies none, reports watching TV Baseline Function- Other low activity level Current Functional Impairments (Reported) Functional Limitations- ADL's Decreased ability to transfer and perform bed mobility due to weight of legs Functional Limitations- Mobility/Gait Decreased ability to ambulate due to weight of legs Functional Limitations- Work/School disabled PT-OP-C Subjective Start: 04/25/19 14:28 Freq: Status: Active Protocol: Document 07/12/19 17:09 GGD (Rec: 07/12/19 17:18 GGD [email or web address]) OP-PT Subjective Patient Comments Patient Comments Pt states that the he hasn't been re-wrap. He reports that his caregiver quit and was unable to re-wrap or take them off. PT-OP-G Mobility & Gait Start: 04/25/19 14:28 Freq: Status: Active Protocol: Document 04/25/19 14:30 SAK (Rec: 04/26/19 09:40 [facility] [id number]) OP Mobility Evaluation Bed Mobility Rolling mod assist Supine to and from Sit mod assist Transfers Sit to Stand min assist from high surface Wheelchair Management Type of Wheelchair power w/c Special Equipment elevating legrests, tilt in space, small air mattress Assessment Details Roho cushion has been ordered OP Gait Assessment Gait Gait Assistance Required: Contact Guard Assist Distance (Feet) 5 Assistive Devices Assistive Device Large Based Quad Cane Orthotic/Prosthetic Devices or Brace: No Gait Deviations General Gait Pattern Decreased Stride Length, Decreased Feet Clearance, Flexed Trunk,Wide Based Gait Factors Limiting Gait Function Factors Limiting Gait Function Decreased Strength Comments Gait Comments tends to slide left LE Stair Climbing Evaluation Comments Stair Climbing Comments unable PT-OP-K Range of Motion Start: 04/25/19 14:28 Freq: Status: Active Protocol: Document 04/25/19 14:30 SAK (Rec: 04/26/19 09:40 SAK [id number]) Hip Goniometric Range of Motion Hip natacha Hip ROM WFL No Hip ROM Limitations Hip ROM Limitations Muscle Weakness,Swelling Knee Goniometric Range of Motion Knee natacha Knee ROM WFL No Knee ROM Limitations Knee ROM Limitations Muscle Weakness,Swelling Ankle and Foot Goniometric Range of Motion Ankle and Foot natacha Ankle/Foot ROM WFL No Ankle and Foot ROM Limitations ROM Limitations Muscle Weakness,Swelling PT-OP-M Strength Start: 04/25/19 14:28 Freq: Status: Active Protocol: Document 04/25/19 14:30 SAK (Rec: 04/26/19 09:40 SAK [id number]) Hip Strength Hip Manual Muscle Testing natacha Comments patient unable to lift against gravity, requires assistance lifting left LE on/off bed Knee Strength Knee Manual Muscle Testing natacha Reason Not Measured Behavior Comments able to extend natacha knees against gravity Ankle/Foot Strength Ankle and Foot Manual Muscle Testing natacha Comments lacking full active motion due to swelling PT-OP-N Lymphedema Start: 04/25/19 14:28 Freq: Status: Active Protocol: Document 04/25/19 14:30 SAK (Rec: 04/26/19 13:38 SAK [id number]) Lymphedema Measurements Lower Extremity Circumference Measurements Left MT Heads 35.5 cm Medial Malleolus 35.4 cm 10 cm From Medial Malleolus 39.6 cm 20 cm From Medial Malleolus 59.4 cm 30 cm From Medial Malleolus 55.6 cm 40 cm From Medial Malleolus 65.6 cm 50 cm From Medial Malleolus 71.7 cm Right MT Heads 31.2 cm Medial Malleolus 30.5 cm 10 cm From Medial Malleolus 31.6 cm 20 cm From Medial Malleolus 39.6 cm 30 cm From Medial Malleolus 56.3 cm 40 cm From Medial Malleolus 63.4 cm 50 cm From Medial Malleolus 62.7 cm Comments Lymphedema Comments *measurement distances are from heel midfoot: right 33.1, left 37/4 knee joint: 59.5 right, 63.1 left PT-OP-Q Treatments Start: 04/25/19 14:28 Freq: Status: Active Protocol: Document 07/12/19 17:09 GGD (Rec: 07/12/19 17:18 GGD [id number]) Therapeutic Exercises Supine Exercises abdominal breathing Reps/Minutes 5x2 abdominal crunch Reps/Minutes 10x foot inv/ev Reps/Minutes 10x2 Comments max assist left SAQ Reps/Minutes 10x2 Comments mod assist left hip IR/ER Reps/Minutes 10x Comments max assist left hip abd Reps/Minutes 10x Comments AAROM right, max assist left heel slides Reps/Minutes 10x Comments AAROM right, max assist left glut sets Reps/Minutes 10x quad sets Reps/Minutes 10x ankle pumps Supine Exercise Name pumps, inve/ev, circles Reps/Minutes 10x Comments max assist left Therapeutic Activity Therapeutic Activity transfers Name w/c to and from mat table Reps/Minutes 1x Comments ambulated 10' with quad cane, min assist from caregiver ( reports didn't feel up to as much gait today.) sit to supine and supine to sit with max assist for left LE, min UE upper body Lymphedema Treatment Lymphedema Wrapping Body Location right LE's toes to knees Materials Comprilan and Artiflex with foam at ankle to obtain cylindrical shape for wrapping . PT-OP-R Modalities Start: 04/25/19 14:28 Freq: Status: Active Protocol: Document 07/12/19 17:09 GGD (Rec: 07/12/19 17:18 GGD [email or web address]) Compression Pump Treatment Treatment Location Right Leg Pressure Amount (mmHg) (mmHG) 40 Inflation Time (Seconds) 30 Deflation Time (Seconds) 10 Treatment Duration (minutes) 10 Treatment Tolerance Good Left Leg Pressure Amount (mmHg) (mmHG) 40 Inflation Time (Seconds) 30 Deflation Time (Seconds) 10 Treatment Duration (minutes) 30 Treatment Tolerance Good PT-OP-T Assessment and Plan Start: 04/25/19 14:28 Freq: Status: Active Protocol: Document 07/12/19 17:09 GGD (Rec: 07/12/19 17:18 GGD [email or web address]) Physical Therapy Assessment Goals Three Impairment Functional mobility Short Term Goal (STG) Patient will require only min assist for transfers in/out of bed 06/21/19: some goal progress STG Duration 6 wks Upper Extremity Surgeon Goal (LTG) Patient will be able to get in and out of bed independently LTG Duration 12 wks Two Impairment bilateral LE strength and ROM deficits [facility] Goal (LTG) Patient to demonstrate LE ROM WNL and improved functional strength to allow him to lift/ move his left LE without assistance. 06/21/19: no significan progress due to heaviness from lymphedema LTG Duration 12 wks One Impairment lymphedema Short Term Goal (STG) Patient to be compliant with home lymphedema wrapping and sequential lymphedema exercises with the assistance of his caregiver. 9/24/19: good goal progress STG Duration 6 wks [facility] Goal (LTG) Decrease and stabilize lymphedema bilateral LE's (no increase or decrease greater than 1 cm over the course of 1 week) and have patient fit with appropriate compression garments; anticipate adjustable lymphedema wraps for long-term edema management . Patient (with assistance of caregiver) to demonstrate independent edema management ability via appropriately using lymphedema pump, applying compression garments, performing sequential lymphedema exercises. 06/21/19: still awaiting lymphedema pump and approval for lymphedema wraps. Patient also still awaiting hospital bed which was ordered prior to lymphedema pump and wraps. LTG Duration 12 wks Assessment Summary Assessment Pt had drainage in left superior toes. Consulted Dr Valladares, and hold treatment on left LE, due to risk of infection. Physical Therapy Plan Frequency and Duration Frequency of Treatment 3x/Week Duration of Treatment 12 wks Plan of Care Start Date 04/25/19 Plan of Care End Date 07/26/19 Next Visit Focus/Plan Next Note Type Progress Note Next Visit Plan Continue PT per POC for lymphedema management.
--- NOTE | 2019-07-19 17:00 | PT.OTN ---
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 (07/19/19) Obesity, unspecified (07/19/19) Hemiplegia, unspecified affecting left nondominant side (07/19/19) Lymphedema, not elsewhere classified (07/19/19) Weakness (07/19/19) Physical Therapy Treatment Note PT-OP-A Visit Information Start: 04/25/19 14:28 Freq: Status: Active Protocol: Document 07/19/19 16:50 GGD (Rec: 07/19/19 16:56 GGD [email or web address]) Out-Patient Physical Therapy Visit Information Visit Information Visit Type Treatment Note Visit Start Time 15:15 Visit Stop Time 16:30 Total Visit Minutes 75 Visit Number 11 Number of APPLICATIONS CONSULTANT Visits 3 PT-OP-B Current Condition Start: 04/25/19 14:28 Freq: Status: Active Protocol: Document 04/25/19 14:30 SAK (Rec: 04/26/19 09:40 SAK [id number]) Current Condition History of Current Condition Onset Date 20+ years Current Complaints lymphedema bilateral LE's left greater than right History of Current Condition Patient reports 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 Since that time he has developed lymphedema, been treated for cellulitis and LE wounds. Most recently he was in the hospital from 03/21/19 to 04/05/19 with sepsis, septic shock, and ARF from LE cellulitis. Additionally he was found to have a right ischial pressure ulcer. It was recommended that he go for inpatient rehab but he refused and has been discharged home. He has a caregiver approximately 6 hrs per day. Patient has a history of using Farrow Wraps for his lymphedema but these are worn out and patient has not been able to use for some time. Has not used a lymphedema pump. He presents today for physical therapy reporting a new wound on his left LE. He uses a power wheelchair with tilt in space and elevating legrests . Able to take a few steps using large -based quad cane on right. Prior Treatments and Tests Farrow wraps Current treatment in wound care for ischial pressure ulcer Wound care nurse consulted today for new wound anterior left lower leg; she dressed with bandage Treatment Goals Patient/Caregiver Goals Decrease lymphedema, improve mobility, obtain new Farrow Wraps, be able to self-manage lymphedema with assist of caregiver Prior Functional Status Baseline Function- ADL's Needs Assist Baseline Function- Mobility Needs Assist Baseline Function- Gait 5 ft with LBQC, CGA Baseline Function- Recreation/Hobbies none, reports watching TV Baseline Function- Other low activity level Current Functional Impairments (Reported) Functional Limitations- ADL's Decreased ability to transfer and perform bed mobility due to weight of legs Functional Limitations- Mobility/Gait Decreased ability to ambulate due to weight of legs Functional Limitations- Work/School disabled PT-OP-C Subjective Start: 04/25/19 14:28 Freq: Status: Active Protocol: Document 07/19/19 16:50 GGD (Rec: 07/19/19 16:56 GGD [email or web address]) OP-PT Subjective Patient Comments Patient Comments Pt states he been on antibiotics since thursday. PT-OP-G Mobility & Gait Start: 04/25/19 14:28 Freq: Status: Active Protocol: Document 04/25/19 14:30 SAK (Rec: 04/26/19 09:40 SAK [id number]) OP Mobility Evaluation Bed Mobility Rolling mod assist Supine to and from Sit mod assist Transfers Sit to Stand min assist from high surface Wheelchair Management Type of Wheelchair power w/c Special Equipment elevating legrests, tilt in space, small air mattress Assessment Details Roho cushion has been ordered OP Gait Assessment Gait Gait Assistance Required: Contact Guard Assist Distance (Feet) 5 Assistive Devices Assistive Device Large Based Quad Cane Orthotic/Prosthetic Devices or Brace: No Gait Deviations General Gait Pattern Decreased Stride Length, Decreased Feet Clearance, Flexed Trunk,Wide Based Gait Factors Limiting Gait Function Factors Limiting Gait Function Decreased Strength Comments Gait Comments tends to slide left LE Stair Climbing Evaluation Comments Stair Climbing Comments unable PT-OP-K Range of Motion Start: 04/25/19 14:28 Freq: Status: Active Protocol: Document 04/25/19 14:30 SAK (Rec: 04/26/19 09:40 SAK [id number]) Hip Goniometric Range of Motion Hip natacha Hip ROM WFL No Hip ROM Limitations Hip ROM Limitations Muscle Weakness,Swelling Knee Goniometric Range of Motion Knee natacha Knee ROM WFL No Knee ROM Limitations Knee ROM Limitations Muscle Weakness,Swelling Ankle and Foot Goniometric Range of Motion Ankle and Foot natacha Ankle/Foot ROM WFL No Ankle and Foot ROM Limitations ROM Limitations Muscle Weakness,Swelling PT-OP-M Strength Start: 04/25/19 14:28 Freq: Status: Active Protocol: Document 04/25/19 14:30 SAK (Rec: 04/26/19 09:40 SAK [id number]) Hip Strength Hip Manual Muscle Testing natacha Comments patient unable to lift against gravity, requires assistance lifting left LE on/off bed Knee Strength Knee Manual Muscle Testing natacha Reason Not Measured Behavior Comments able to extend natacha knees against gravity Ankle/Foot Strength Ankle and Foot Manual Muscle Testing natacha Comments lacking full active motion due to swelling PT-OP-N Lymphedema Start: 04/25/19 14:28 Freq: Status: Active Protocol: Document 07/19/19 16:50 GGD (Rec: 07/19/19 17:00 GGD [email or web address]) Lymphedema Measurements Lower Extremity Circumference Measurements Left MT Heads 37.1 cm Medial Malleolus 40.5 cm 10 cm From Medial Malleolus 46.2 cm 20 cm From Medial Malleolus 63.2 cm 30 cm From Medial Malleolus 67 cm 40 cm From Medial Malleolus 65 cm 50 cm From Medial Malleolus 70.2 cm Right MT Heads 30.5 cm Medial Malleolus 30 cm 10 cm From Medial Malleolus 31 cm 20 cm From Medial Malleolus 47.9 cm 30 cm From Medial Malleolus 57.2 cm 40 cm From Medial Malleolus 53 cm 50 cm From Medial Malleolus 64.9 cm Comments Lymphedema Comments *measurement distances are from heel midfoot: right 40.1, left 32.5 knee joint: 61.2 right, 56.8 left PT-OP-Q Treatments Start: 04/25/19 14:28 Freq: Status: Active Protocol: Document 07/19/19 16:50 GGD (Rec: 07/19/19 16:56 GGD [email or web address]) Therapeutic Exercises Supine Exercises abdominal breathing Reps/Minutes 5x2 abdominal crunch Reps/Minutes 10x foot inv/ev Reps/Minutes 10x2 Comments max assist left SAQ Reps/Minutes 10x2 Comments mod assist left hip IR/ER Reps/Minutes 10x Comments max assist left hip abd Reps/Minutes 10x Comments AAROM right, max assist left heel slides Reps/Minutes 10x Comments AAROM right, max assist left glut sets Reps/Minutes 10x quad sets Reps/Minutes 10x ankle pumps Supine Exercise Name pumps, inve/ev, circles Reps/Minutes 10x Comments max assist left Therapeutic Activity Therapeutic Activity transfers Name w/c to and from mat table Reps/Minutes 1x Comments ambulated 10' min assist from caregiver sit to supine and supine to sit with max assist for left LE, min UE upper body Lymphedema Treatment Lymphedema Wrapping Body Location natacha LE's toes to knees Materials Comprilan and Artiflex with foam at ankle to obtain cylindrical shape for wrapping . PT-OP-R Modalities Start: 04/25/19 14:28 Freq: Status: Active Protocol: Document 07/19/19 16:50 GGD (Rec: 07/19/19 16:56 GGD [email or web address]) Compression Pump Treatment Treatment Location Right Leg Pressure Amount (mmHg) (mmHG) 40 Inflation Time (Seconds) 30 Deflation Time (Seconds) 10 Treatment Duration (minutes) 10 Treatment Tolerance Good Left Leg Pressure Amount (mmHg) (mmHG) 40 Inflation Time (Seconds) 30 Deflation Time (Seconds) 10 Treatment Duration (minutes) 30 Treatment Tolerance Good PT-OP-T Assessment and Plan Start: 04/25/19 14:28 Freq: Status: Active Protocol: Document 07/19/19 16:50 GGD (Rec: 07/19/19 16:56 GGD [email or web address]) Physical Therapy Assessment Goals Three Impairment Functional mobility Short Term Goal (STG) Patient will require only min assist for transfers in/out of bed 06/21/19: some goal progress STG Duration 6 wks Detention Goal (LTG) Patient will be able to get in and out of bed independently LTG Duration 12 wks Two Impairment bilateral LE strength and ROM deficits Manager Radiation Goal (LTG) Patient to demonstrate LE ROM WNL and improved functional strength to allow him to lift/ move his left LE without assistance. 06/21/19: no significan progress due to heaviness from lymphedema LTG Duration 12 wks One Impairment lymphedema Short Term Goal (STG) Patient to be compliant with home lymphedema wrapping and sequential lymphedema exercises with the assistance of his caregiver. 06/21/19: good goal progress STG Duration 6 wks Detention Goal (LTG) Decrease and stabilize lymphedema bilateral LE's (no increase or decrease greater than 1 cm over the course of 1 week) and have patient fit with appropriate compression garments; anticipate adjustable lymphedema wraps for long-term edema management . Patient (with assistance of caregiver) to demonstrate independent edema management ability via appropriately using lymphedema pump, applying compression garments, performing sequential lymphedema exercises. 06/21/19: still awaiting lymphedema pump and approval for lymphedema wraps. Patient also still awaiting hospital bed which was ordered prior to lymphedema pump and wraps. LTG Duration 12 wks Assessment Summary Assessment Pt had decrease in right circumference measurements of an average of 1 CM. He had increase in left LE measurement due to foot infection and no wrapping x 1 week. Physical Therapy Plan Frequency and Duration Frequency of Treatment 3x/Week Duration of Treatment 12 wks Plan of Care Start Date 04/25/19 Plan of Care End Date 07/26/19 Next Visit Focus/Plan Next Note Type Progress Note Next Visit Plan Continue PT per POC for lymphedema management.
--- NOTE | 2019-07-28 12:23 | PT.OTN ---
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 (07/28/19) Obesity, unspecified (07/28/19) Hemiplegia, unspecified affecting left nondominant side (07/28/19) Lymphedema, not elsewhere classified (07/28/19) Weakness (07/28/19) Physical Therapy Treatment Note PT-OP-A Visit Information Start: 04/25/19 14:28 Freq: Status: Active Protocol: Document 07/28/19 12:02 GGD (Rec: 07/28/19 12:23 GGD [id number]) Out-Patient Physical Therapy Visit Information Visit Information Visit Type Treatment Note Visit Start Time 09:50 Visit Stop Time 11:10 Total Visit Minutes 80 Visit Number 12 Number of WOVEN BLIND LOOM TENDER Visits 4 PT-OP-B Current Condition Start: 04/25/19 14:28 Freq: Status: Active Protocol: Document 04/25/19 14:30 SAK (Rec: 04/26/19 09:40 SAK [id number]) Current Condition History of Current Condition Onset Date 20+ years Current Complaints lymphedema bilateral LE's left greater than right History of Current Condition Patient reports 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 Since that time he has developed lymphedema, been treated for cellulitis and LE wounds. Most recently he was in the hospital from 03/21/19 to 04/05/19 with sepsis, septic shock, and ARF from LE cellulitis. Additionally he was found to have a right ischial pressure ulcer. It was recommended that he go for inpatient rehab but he refused and has been discharged home. He has a caregiver approximately 6 hrs per day. Patient has a history of using Farrow Wraps for his lymphedema but these are worn out and patient has not been able to use for some time. Has not used a lymphedema pump. He presents today for physical therapy reporting a new wound on his left LE. He uses a power wheelchair with tilt in space and elevating legrests . Able to take a few steps using large -based quad cane on right. Prior Treatments and Tests Farrow wraps Current treatment in wound care for ischial pressure ulcer Wound care nurse consulted today for new wound anterior left lower leg; she dressed with bandage Treatment Goals Patient/Caregiver Goals Decrease lymphedema, improve mobility, obtain new Farrow Wraps, be able to self-manage lymphedema with assist of caregiver Prior Functional Status Baseline Function- ADL's Needs Assist Baseline Function- Mobility Needs Assist Baseline Function- Gait 5 ft with LBQC, CGA Baseline Function- Recreation/Hobbies none, reports watching TV Baseline Function- Other low activity level Current Functional Impairments (Reported) Functional Limitations- ADL's Decreased ability to transfer and perform bed mobility due to weight of legs Functional Limitations- Mobility/Gait Decreased ability to ambulate due to weight of legs Functional Limitations- Work/School disabled PT-OP-C Subjective Start: 04/25/19 14:28 Freq: Status: Active Protocol: Document 07/28/19 12:02 GGD (Rec: 07/28/19 12:23 GGD [id number]) OP-PT Subjective Patient Comments Patient Comments Pt states that he had the right leg wraped by his caregiver PT-OP-G Mobility & Gait Start: 04/25/19 14:28 Freq: Status: Active Protocol: Document 04/25/19 14:30 SAK (Rec: 04/26/19 09:40 SAK [id number]) OP Mobility Evaluation Bed Mobility Rolling mod assist Supine to and from Sit mod assist Transfers Sit to Stand min assist from high surface Wheelchair Management Type of Wheelchair power w/c Special Equipment elevating legrests, tilt in space, small air mattress Assessment Details Roho cushion has been ordered OP Gait Assessment Gait Gait Assistance Required: Contact Guard Assist Distance (Feet) 5 Assistive Devices Assistive Device Large Based Quad Cane Orthotic/Prosthetic Devices or Brace: No Gait Deviations General Gait Pattern Decreased Stride Length, Decreased Feet Clearance, Flexed Trunk,Wide Based Gait Factors Limiting Gait Function Factors Limiting Gait Function Decreased Strength Comments Gait Comments tends to slide left LE Stair Climbing Evaluation Comments Stair Climbing Comments unable PT-OP-K Range of Motion Start: 04/25/19 14:28 Freq: Status: Active Protocol: Document 04/25/19 14:30 SAK (Rec: 04/26/19 09:40 SAK [id number]) Hip Goniometric Range of Motion Hip natacha Hip ROM WFL No Hip ROM Limitations Hip ROM Limitations Muscle Weakness,Swelling Knee Goniometric Range of Motion Knee natacha Knee ROM WFL No Knee ROM Limitations Knee ROM Limitations Muscle Weakness,Swelling Ankle and Foot Goniometric Range of Motion Ankle and Foot natacha Ankle/Foot ROM WFL No Ankle and Foot ROM Limitations ROM Limitations Muscle Weakness,Swelling PT-OP-M Strength Start: 04/25/19 14:28 Freq: Status: Active Protocol: Document 04/25/19 14:30 SAK (Rec: 04/26/19 09:40 SAK [id number]) Hip Strength Hip Manual Muscle Testing natacha Comments patient unable to lift against gravity, requires assistance lifting left LE on/off bed Knee Strength Knee Manual Muscle Testing natacha Reason Not Measured Behavior Comments able to extend natacha knees against gravity Ankle/Foot Strength Ankle and Foot Manual Muscle Testing natacha Comments lacking full active motion due to swelling PT-OP-N Lymphedema Start: 04/25/19 14:28 Freq: Status: Active Protocol: Document 07/28/19 12:02 GGD (Rec: 07/28/19 12:23 GGD [id number]) Lymphedema Measurements Lower Extremity Circumference Measurements Left MT Heads 39.8 cm Medial Malleolus 41.3 cm 10 cm From Medial Malleolus 42.7 cm 20 cm From Medial Malleolus 64 cm 30 cm From Medial Malleolus 65.9 cm 40 cm From Medial Malleolus 66 cm 50 cm From Medial Malleolus 68.2 cm Right MT Heads 30.7 cm Medial Malleolus 32 cm 10 cm From Medial Malleolus 32.5 cm 20 cm From Medial Malleolus 47.2 cm 30 cm From Medial Malleolus 58 cm 40 cm From Medial Malleolus 60 cm 50 cm From Medial Malleolus 63.8 cm Comments Lymphedema Comments *measurement distances are from heel midfoot: right 32.5, left 39 knee joint: 63.7 right, 57 left PT-OP-Q Treatments Start: 04/25/19 14:28 Freq: Status: Active Protocol: Document 07/28/19 12:02 GGD (Rec: 07/28/19 12:23 GGD [id number]) Therapeutic Exercises Supine Exercises abdominal breathing Reps/Minutes 5x2 abdominal crunch Reps/Minutes 10x foot inv/ev Reps/Minutes 10x2 Comments max assist left SAQ Reps/Minutes 10x2 Comments mod assist left hip IR/ER Reps/Minutes 10x Comments max assist left hip abd Reps/Minutes 10x Comments AAROM right, max assist left heel slides Reps/Minutes 10x Comments AAROM right, max assist left glut sets Reps/Minutes 10x quad sets Reps/Minutes 10x ankle pumps Supine Exercise Name pumps, inve/ev, circles Reps/Minutes 10x Comments max assist left Therapeutic Activity Therapeutic Activity transfers Name w/c to and from mat table Reps/Minutes 2x Comments ambulated 10' min assist from caregiver sit to supine and supine to sit with max assist for left LE, min UE upper body Lymphedema Treatment Lymphedema Wrapping Body Location natacha LE's toes to knees Materials Comprilan and Artiflex with foam at ankle to obtain cylindrical shape for wrapping . PT-OP-R Modalities Start: 04/25/19 14:28 Freq: Status: Active Protocol: Document 07/28/19 12:02 GGD (Rec: 07/28/19 12:23 GGD [id number]) Compression Pump Treatment Treatment Location Right Leg Pressure Amount (mmHg) (mmHG) 40 Inflation Time (Seconds) 30 Deflation Time (Seconds) 10 Treatment Duration (minutes) 10 Treatment Tolerance Good Left Leg Pressure Amount (mmHg) (mmHG) 40 Inflation Time (Seconds) 30 Deflation Time (Seconds) 10 Treatment Duration (minutes) 30 Treatment Tolerance Good PT-OP-T Assessment and Plan Start: 04/25/19 14:28 Freq: Status: Active Protocol: Document 07/28/19 12:02 GGD (Rec: 07/28/19 12:23 GGD [id number]) Physical Therapy Assessment Goals Three Impairment Functional mobility Short Term Goal (STG) Patient will require only min assist for transfers in/out of bed 06/21/19: some goal progress 07/28/19: Pt able to assist with right LE STG Duration 6 wks [facility] Goal (LTG) Patient will be able to get in and out of bed independently LTG Duration 12 wks Two Impairment bilateral LE strength and ROM deficits [facility] Goal (LTG) Patient to demonstrate LE ROM WNL and improved functional strength to allow him to lift/ move his left LE without assistance. 06/21/19: no significan progress due to heaviness from lymphedema 07/28/19: Pt able to heel slide and lift right LE making progress, ROM limited by lymphedema LTG Duration 12 wks One Impairment lymphedema Short Term Goal (STG) Patient to be compliant with home lymphedema wrapping and sequential lymphedema exercises with the assistance of his caregiver. 06/21/19: good goal progress 07/28/19: progressing with new caregiver. STG Duration 6 wks Nursing Unit Coordinator Goal (LTG) Decrease and stabilize lymphedema bilateral LE's (no increase or decrease greater than 1 cm over the course of 1 week) and have patient fit with appropriate compression garments; anticipate adjustable lymphedema wraps for long-term edema management . Patient (with assistance of caregiver) to demonstrate independent edema management ability via appropriately using lymphedema pump, applying compression garments, performing sequential lymphedema exercises. 06/21/19: still awaiting lymphedema pump and approval for lymphedema wraps. Patient also still awaiting hospital bed which was ordered prior to lymphedema pump and wraps. LTG Duration 12 wks Assessment Summary Assessment Pt improving slowly. He had improvement in right LE measurements. Left had improvement over last visit, but increase overall. He is improving with right LE strength and ROM. Physical Therapy Plan Frequency and Duration Frequency of Treatment 2x/Week Duration of Treatment 12 wks Plan of Care Start Date 07/28/19 Plan of Care End Date 10/26/19
--- NOTE | 2019-07-28 15:21 | PT.OPPN ---
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 (07/28/19) Obesity, unspecified (07/28/19) Hemiplegia, unspecified affecting left nondominant side (07/28/19) Lymphedema, not elsewhere classified (07/28/19) Weakness (07/28/19) Physical Therapy Progress Note PT-OP-A Visit Information Start: 04/25/19 14:28 Freq: Status: Active Protocol: Document 07/28/19 12:02 GGD (Rec: 07/28/19 12:23 GGD [id number]) Out-Patient Physical Therapy Visit Information Visit Information Visit Type Treatment Note Visit Start Time 09:50 Visit Stop Time 11:10 Total Visit Minutes 80 Visit Number 12 Number of SHOVEL OILER Visits 4 PT-OP-B Current Condition Start: 04/25/19 14:28 Freq: Status: Active Protocol: Document 04/25/19 14:30 SAK (Rec: 04/26/19 09:40 SAK [id number]) Current Condition History of Current Condition Onset Date 20+ years Current Complaints lymphedema bilateral LE's left greater than right History of Current Condition Patient reports 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 Since that time he has developed lymphedema, been treated for cellulitis and LE wounds. Most recently he was in the hospital from 03/21/19 to 04/05/19 with sepsis, septic shock, and ARF from LE cellulitis. Additionally he was found to have a right ischial pressure ulcer. It was recommended that he go for inpatient rehab but he refused and has been discharged home. He has a caregiver approximately 6 hrs per day. Patient has a history of using Farrow Wraps for his lymphedema but these are worn out and patient has not been able to use for some time. Has not used a lymphedema pump. He presents today for physical therapy reporting a new wound on his left LE. He uses a power wheelchair with tilt in space and elevating legrests . Able to take a few steps using large -based quad cane on right. Prior Treatments and Tests Farrow wraps Current treatment in wound care for ischial pressure ulcer Wound care nurse consulted today for new wound anterior left lower leg; she dressed with bandage Treatment Goals Patient/Caregiver Goals Decrease lymphedema, improve mobility, obtain new Farrow Wraps, be able to self-manage lymphedema with assist of caregiver Prior Functional Status Baseline Function- ADL's Needs Assist Baseline Function- Mobility Needs Assist Baseline Function- Gait 5 ft with LBQC, CGA Baseline Function- Recreation/Hobbies none, reports watching TV Baseline Function- Other low activity level Current Functional Impairments (Reported) Functional Limitations- ADL's Decreased ability to transfer and perform bed mobility due to weight of legs Functional Limitations- Mobility/Gait Decreased ability to ambulate due to weight of legs Functional Limitations- Work/School disabled PT-OP-C Subjective Start: 04/25/19 14:28 Freq: Status: Active Protocol: Document 07/28/19 12:02 GGD (Rec: 07/28/19 12:23 GGD [id number]) OP-PT Subjective Patient Comments Patient Comments Pt states that he had the right leg wraped by his caregiver PT-OP-G Mobility & Gait Start: 04/25/19 14:28 Freq: Status: Active Protocol: Document 04/25/19 14:30 SAK (Rec: 04/26/19 09:40 SAK [id number]) OP Mobility Evaluation Bed Mobility Rolling mod assist Supine to and from Sit mod assist Transfers Sit to Stand min assist from high surface Wheelchair Management Type of Wheelchair power w/c Special Equipment elevating legrests, tilt in space, small air mattress Assessment Details Roho cushion has been ordered OP Gait Assessment Gait Gait Assistance Required: Contact Guard Assist Distance (Feet) 5 Assistive Devices Assistive Device Large Based Quad Cane Orthotic/Prosthetic Devices or Brace: No Gait Deviations General Gait Pattern Decreased Stride Length, Decreased Feet Clearance, Flexed Trunk,Wide Based Gait Factors Limiting Gait Function Factors Limiting Gait Function Decreased Strength Comments Gait Comments tends to slide left LE Stair Climbing Evaluation Comments Stair Climbing Comments unable PT-OP-K Range of Motion Start: 04/25/19 14:28 Freq: Status: Active Protocol: Document 04/25/19 14:30 SAK (Rec: 04/26/19 09:40 SAK [id number]) Hip Goniometric Range of Motion Hip Measured in Degrees natacha Hip ROM WFL No Hip ROM Limitations Hip ROM Limitations Muscle Weakness,Swelling Knee Goniometric Range of Motion Knee Measured in Degrees natacha Knee ROM WFL No Knee ROM Limitations Knee ROM Limitations Muscle Weakness,Swelling Ankle and Foot Goniometric Range of Motion Ankle and Foot Measured in Degrees natacha Ankle/Foot ROM WFL No Ankle and Foot ROM Limitations ROM Limitations Muscle Weakness,Swelling PT-OP-M Strength Start: 04/25/19 14:28 Freq: Status: Active Protocol: Document 04/25/19 14:30 SAK (Rec: 04/26/19 09:40 SAK [id number]) Hip Strength Hip Manual Muscle Testing natacha Comments patient unable to lift against gravity, requires assistance lifting left LE on/off bed Knee Strength Knee Manual Muscle Testing natacha Reason Not Measured Behavior Comments able to extend natacha knees against gravity Ankle/Foot Strength Ankle and Foot Manual Muscle Testing natacha Comments lacking full active motion due to swelling PT-OP-N Lymphedema Start: 04/25/19 14:28 Freq: Status: Active Protocol: Document 07/28/19 12:02 GGD (Rec: 07/28/19 12:23 GGD [id number]) Lymphedema Measurements Lower Extremity Circumference Measurements Left MT Heads 39.8 cm Medial Malleolus 41.3 cm 10 cm From Medial Malleolus 42.7 cm 20 cm From Medial Malleolus 64 cm 30 cm From Medial Malleolus 65.9 cm 40 cm From Medial Malleolus 66 cm 50 cm From Medial Malleolus 68.2 cm Right MT Heads 30.7 cm Medial Malleolus 32 cm 10 cm From Medial Malleolus 32.5 cm 20 cm From Medial Malleolus 47.2 cm 30 cm From Medial Malleolus 58 cm 40 cm From Medial Malleolus 60 cm 50 cm From Medial Malleolus 63.8 cm Comments Lymphedema Comments *measurement distances are from heel midfoot: right 32.5, left 39 knee joint: 63.7 right, 57 left PT-OP-T Assessment and Plan Start: 04/25/19 14:28 Freq: Status: Active Protocol: Document 07/28/19 12:02 GGD (Rec: 07/28/19 12:23 GGD [id number]) Physical Therapy Assessment Goals Three Impairment Functional mobility Short Term Goal (STG) Patient will require only min assist for transfers in/out of bed 06/21/19: some goal progress 07/28/19: Pt able to assist with right LE STG Duration 6 wks Therapeutic Massage Technician Goal (LTG) Patient will be able to get in and out of bed independently LTG Duration 12 wks Two Impairment bilateral LE strength and ROM deficits Therapeutic Massage Technician Goal (LTG) Patient to demonstrate LE ROM WNL and improved functional strength to allow him to lift/ move his left LE without assistance. 06/21/19: no significan progress due to heaviness from lymphedema 07/28/19: Pt able to heel slide and lift right LE making progress, ROM limited by lymphedema LTG Duration 12 wks One Impairment lymphedema Short Term Goal (STG) Patient to be compliant with home lymphedema wrapping and sequential lymphedema exercises with the assistance of his caregiver. 06/21/19: good goal progress 07/28/19: progressing with new caregiver. STG Duration 6 wks Mcfp Goal (LTG) Decrease and stabilize lymphedema bilateral LE's (no increase or decrease greater than 1 cm over the course of 1 week) and have patient fit with appropriate compression garments; anticipate adjustable lymphedema wraps for long-term edema management . Patient (with assistance of caregiver) to demonstrate independent edema management ability via appropriately using lymphedema pump, applying compression garments, performing sequential lymphedema exercises. 06/21/19: still awaiting lymphedema pump and approval for lymphedema wraps. Patient also still awaiting hospital bed which was ordered prior to lymphedema pump and wraps. LTG Duration 12 wks Assessment Summary Assessment Pt improving slowly. He had improvement in right LE measurements. Left had improvement over last visit, but increase overall. He is improving with right LE strength and ROM. Physical Therapy Plan Frequency and Duration Frequency of Treatment 2x/Week Duration of Treatment 12 wks Plan of Care Start Date 07/28/19 Plan of Care End Date 10/26/19
--- NOTE | 2019-07-28 15:21 | PT.OPPOC ---
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 (07/28/19) Obesity, unspecified (07/28/19) Hemiplegia, unspecified affecting left nondominant side (07/28/19) Lymphedema, not elsewhere classified (07/28/19) Weakness (07/28/19) Visit Care Team Role Provider Type Asia Mario PA-C Family Provider Non-Staff Primary Care Provider Specialty: Nursing Address: [address] [place], [place] [address]ot [facility], [place], [address] Fax: Email: Ankush Wilburn MD Attending Provider Non-Staff Specialty: Family Practice Address: [address] [facility], [address], [place], [address] Email: Plan Of Care PT-OP-T Assessment and Plan Start: 04/25/19 14:28 Freq: Status: Active Protocol: Document 07/28/19 12:02 GGD (Rec: 07/28/19 12:23 GGD [id number]) Physical Therapy Assessment Goals Three Impairment Functional mobility Short Term Goal (STG) Patient will require only min assist for transfers in/out of bed 06/21/19: some goal progress 07/28/19: Pt able to assist with right LE STG Duration 6 wks Utilization Management Nurse Goal (LTG) Patient will be able to get in and out of bed independently LTG Duration 12 wks Two Impairment bilateral LE strength and ROM deficits Utilization Management Nurse Goal (LTG) Patient to demonstrate LE ROM WNL and improved functional strength to allow him to lift/ move his left LE without assistance. 06/21/19: no significan progress due to heaviness from lymphedema 07/28/19: Pt able to heel slide and lift right LE making progress, ROM limited by lymphedema LTG Duration 12 wks One Impairment lymphedema Short Term Goal (STG) Patient to be compliant with home lymphedema wrapping and sequential lymphedema exercises with the assistance of his caregiver. 06/21/19: good goal progress 07/28/19: progressing with new caregiver. STG Duration 6 wks Penitentiary Goal (LTG) Decrease and stabilize lymphedema bilateral LE's (no increase or decrease greater than 1 cm over the course of 1 week) and have patient fit with appropriate compression garments; anticipate adjustable lymphedema wraps for long-term edema management . Patient (with assistance of caregiver) to demonstrate independent edema management ability via appropriately using lymphedema pump, applying compression garments, performing sequential lymphedema exercises. 06/21/19: still awaiting lymphedema pump and approval for lymphedema wraps. Patient also still awaiting hospital bed which was ordered prior to lymphedema pump and wraps. LTG Duration 12 wks Assessment Summary Assessment Pt improving slowly. He had improvement in right LE measurements. Left had improvement over last visit, but increase overall. He is improving with right LE strength and ROM. Physical Therapy Plan Frequency and Duration Frequency of Treatment 2x/Week Duration of Treatment 12 wks Plan of Care Start Date 07/28/19 Plan of Care End Date 10/26/19 Plan of Care Dates Plan of Care Start Date 07/28/19 Plan of Care End Date 10/26/19
--- NOTE | 2019-08-02 17:50 | PT.OTN ---
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 (08/02/19) Obesity, unspecified (08/02/19) Hemiplegia, unspecified affecting left nondominant side (08/02/19) Lymphedema, not elsewhere classified (08/02/19) Weakness (08/02/19) Physical Therapy Treatment Note PT-OP-A Visit Information Start: 04/25/19 14:28 Freq: Status: Active Protocol: Document 08/02/19 17:40 GGD (Rec: 08/02/19 17:50 GGD [id number]) Out-Patient Physical Therapy Visit Information Visit Information Visit Type Treatment Note Visit Start Time 16:00 Visit Stop Time 15:20 Total Visit Minutes 80 Visit Number 13 Number of SCHOOL LIBRARIAN Visits 5 PT-OP-B Current Condition Start: 04/25/19 14:28 Freq: Status: Active Protocol: Document 04/25/19 14:30 SAK (Rec: 04/26/19 09:40 SAK [id number]) Current Condition History of Current Condition Onset Date 20+ years Current Complaints lymphedema bilateral LE's left greater than right History of Current Condition Patient reports 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 Since that time he has developed lymphedema, been treated for cellulitis and LE wounds. Most recently he was in the hospital from 03/21/19 to 04/05/19 with sepsis, septic shock, and ARF from LE cellulitis. Additionally he was found to have a right ischial pressure ulcer. It was recommended that he go for inpatient rehab but he refused and has been discharged home. He has a caregiver approximately 6 hrs per day. Patient has a history of using Farrow Wraps for his lymphedema but these are worn out and patient has not been able to use for some time. Has not used a lymphedema pump. He presents today for physical therapy reporting a new wound on his left LE. He uses a power wheelchair with tilt in space and elevating legrests . Able to take a few steps using large -based quad cane on right. Prior Treatments and Tests Farrow wraps Current treatment in wound care for ischial pressure ulcer Wound care nurse consulted today for new wound anterior left lower leg; she dressed with bandage Treatment Goals Patient/Caregiver Goals Decrease lymphedema, improve mobility, obtain new Farrow Wraps, be able to self-manage lymphedema with assist of caregiver Prior Functional Status Baseline Function- ADL's Needs Assist Baseline Function- Mobility Needs Assist Baseline Function- Gait 5 ft with LBQC, CGA Baseline Function- Recreation/Hobbies none, reports watching TV Baseline Function- Other low activity level Current Functional Impairments (Reported) Functional Limitations- ADL's Decreased ability to transfer and perform bed mobility due to weight of legs Functional Limitations- Mobility/Gait Decreased ability to ambulate due to weight of legs Functional Limitations- Work/School disabled PT-OP-C Subjective Start: 04/25/19 14:28 Freq: Status: Active Protocol: Document 08/02/19 17:40 GGD (Rec: 08/02/19 17:50 GGD [id number]) OP-PT Subjective Patient Comments Patient Comments Pt states wraps have stayed up better. PT-OP-G Mobility & Gait Start: 04/25/19 14:28 Freq: Status: Active Protocol: Document 04/25/19 14:30 SAK (Rec: 04/26/19 09:40 SAK [id number]) OP Mobility Evaluation Bed Mobility Rolling mod assist Supine to and from Sit mod assist Transfers Sit to Stand min assist from high surface Wheelchair Management Type of Wheelchair power w/c Special Equipment elevating legrests, tilt in space, small air mattress Assessment Details Roho cushion has been ordered OP Gait Assessment Gait Gait Assistance Required: Contact Guard Assist Distance (Feet) 5 Assistive Devices Assistive Device Large Based Quad Cane Orthotic/Prosthetic Devices or Brace: No Gait Deviations General Gait Pattern Decreased Stride Length, Decreased Feet Clearance, Flexed Trunk,Wide Based Gait Factors Limiting Gait Function Factors Limiting Gait Function Decreased Strength Comments Gait Comments tends to slide left LE Stair Climbing Evaluation Comments Stair Climbing Comments unable PT-OP-K Range of Motion Start: 04/25/19 14:28 Freq: Status: Active Protocol: Document 04/25/19 14:30 SAK (Rec: 04/26/19 09:40 SAK [id number]) Hip Goniometric Range of Motion Hip natacha Hip ROM WFL No Hip ROM Limitations Hip ROM Limitations Muscle Weakness,Swelling Knee Goniometric Range of Motion Knee natacha Knee ROM WFL No Knee ROM Limitations Knee ROM Limitations Muscle Weakness,Swelling Ankle and Foot Goniometric Range of Motion Ankle and Foot natacha Ankle/Foot ROM WFL No Ankle and Foot ROM Limitations ROM Limitations Muscle Weakness,Swelling PT-OP-M Strength Start: 04/25/19 14:28 Freq: Status: Active Protocol: Document 04/25/19 14:30 SAK (Rec: 04/26/19 09:40 SAK [id number]) Hip Strength Hip Manual Muscle Testing natacha Comments patient unable to lift against gravity, requires assistance lifting left LE on/off bed Knee Strength Knee Manual Muscle Testing natacha Reason Not Measured Behavior Comments able to extend natacha knees against gravity Ankle/Foot Strength Ankle and Foot Manual Muscle Testing natacha Comments lacking full active motion due to swelling PT-OP-N Lymphedema Start: 04/25/19 14:28 Freq: Status: Active Protocol: Document 07/28/19 12:02 GGD (Rec: 07/28/19 12:23 GGD [id number]) Lymphedema Measurements Lower Extremity Circumference Measurements Left MT Heads 39.8 cm Medial Malleolus 41.3 cm 10 cm From Medial Malleolus 42.7 cm 20 cm From Medial Malleolus 64 cm 30 cm From Medial Malleolus 65.9 cm 40 cm From Medial Malleolus 66 cm 50 cm From Medial Malleolus 68.2 cm Right MT Heads 30.7 cm Medial Malleolus 32 cm 10 cm From Medial Malleolus 32.5 cm 20 cm From Medial Malleolus 47.2 cm 30 cm From Medial Malleolus 58 cm 40 cm From Medial Malleolus 60 cm 50 cm From Medial Malleolus 63.8 cm Comments Lymphedema Comments *measurement distances are from heel midfoot: right 32.5, left 39 knee joint: 63.7 right, 57 left PT-OP-Q Treatments Start: 04/25/19 14:28 Freq: Status: Active Protocol: Document 08/02/19 17:40 GGD (Rec: 08/02/19 17:50 GGD [id number]) Cardio Equipment Recumbent Stepper (Sci-Fit) Duration (Minutes) 5 Resistance 1 Seat Position wheel chair Therapeutic Exercises Supine Exercises abdominal breathing Reps/Minutes 5x2 abdominal crunch Reps/Minutes 10x foot inv/ev Reps/Minutes 10x2 Comments max assist left SAQ Reps/Minutes 10x2 Comments mod assist left hip IR/ER Reps/Minutes 10x Comments max assist left hip abd Reps/Minutes 10x Comments AAROM right, max assist left heel slides Reps/Minutes 10x Comments AAROM right, max assist left glut sets Reps/Minutes 10x quad sets Reps/Minutes 10x ankle pumps Supine Exercise Name pumps, inve/ev, circles Reps/Minutes 10x Comments max assist left Therapeutic Activity Therapeutic Activity transfers Name w/c to and from mat table Reps/Minutes 1x Comments ambulated 10' min assist from caregiver sit to supine and supine to sit with max assist for left LE, min UE upper body Lymphedema Treatment Lymphedema Wrapping Body Location natacha LE's toes to knees Materials Comprilan and Artiflex with foam at ankle to obtain cylindrical shape for wrapping . PT-OP-R Modalities Start: 04/25/19 14:28 Freq: Status: Active Protocol: Document 08/02/19 17:40 GGD (Rec: 08/02/19 17:50 GGD [id number]) Compression Pump Treatment Treatment Location Right Leg Pressure Amount (mmHg) (mmHG) 40 Inflation Time (Seconds) 30 Deflation Time (Seconds) 10 Treatment Duration (minutes) 10 Treatment Tolerance Good Left Leg Pressure Amount (mmHg) (mmHG) 40 Inflation Time (Seconds) 30 Deflation Time (Seconds) 10 Treatment Duration (minutes) 30 Treatment Tolerance Good PT-OP-T Assessment and Plan Start: 04/25/19 14:28 Freq: Status: Active Protocol: Document 08/02/19 17:40 GGD (Rec: 08/02/19 17:50 GGD [id number]) Physical Therapy Assessment Goals Three Impairment Functional mobility Short Term Goal (STG) Patient will require only min assist for transfers in/out of bed 06/21/19: some goal progress 07/28/19: Pt able to assist with right LE STG Duration 6 wks Usp Goal (LTG) Patient will be able to get in and out of bed independently LTG Duration 12 wks Two Impairment bilateral LE strength and ROM deficits Usp Goal (LTG) Patient to demonstrate LE ROM WNL and improved functional strength to allow him to lift/ move his left LE without assistance. 06/21/19: no significan progress due to heaviness from lymphedema 07/28/19: Pt able to heel slide and lift right LE making progress, ROM limited by lymphedema LTG Duration 12 wks One Impairment lymphedema Short Term Goal (STG) Patient to be compliant with home lymphedema wrapping and sequential lymphedema exercises with the assistance of his caregiver. 06/21/19: good goal progress 07/28/19: progressing with new caregiver. STG Duration 6 wks Usp Goal (LTG) Decrease and stabilize lymphedema bilateral LE's (no increase or decrease greater than 1 cm over the course of 1 week) and have patient fit with appropriate compression garments; anticipate adjustable lymphedema wraps for long-term edema management . Patient (with assistance of caregiver) to demonstrate independent edema management ability via appropriately using lymphedema pump, applying compression garments, performing sequential lymphedema exercises. 06/21/19: still awaiting lymphedema pump and approval for lymphedema wraps. Patient also still awaiting hospital bed which was ordered prior to lymphedema pump and wraps. LTG Duration 12 wks Assessment Summary Assessment Pt had needed encouragement in lifting right LE. He had improved LE edema. He good tolerance to scifit stepper. Physical Therapy Plan Frequency and Duration Frequency of Treatment 2x/Week Duration of Treatment 12 wks Plan of Care Start Date 07/28/19 Plan of Care End Date 10/26/19 Next Visit Focus/Plan Next Note Type Progress Note Next Visit Plan Continue PT per POC for lymphedema management.
--- NOTE | 2019-08-15 16:13 | PT.OTN ---
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 (08/15/19) Obesity, unspecified (08/15/19) Hemiplegia, unspecified affecting left nondominant side (08/15/19) Lymphedema, not elsewhere classified (08/15/19) Weakness (08/15/19) Physical Therapy Treatment Note PT-OP-A Visit Information Start: 04/25/19 14:28 Freq: Status: Active Protocol: Document 08/15/19 15:57 [facility] (Rec: 08/15/19 16:08 [facility] [id number]) Out-Patient Physical Therapy Visit Information Visit Information Visit Type Treatment Note Visit Start Time 14:30 Visit Stop Time 16:00 Total Visit Minutes 90 Visit Number 14 Number of DIET THERAPIST Visits 6 PT-OP-B Current Condition Start: 04/25/19 14:28 Freq: Status: Active Protocol: Document 04/25/19 14:30 SAK (Rec: 04/26/19 09:40 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 Since that time he has developed lymphedema, been treated for cellulitis and LE wounds. Most recently he was in the hospital from 03/21/19 to 04/05/19 with sepsis, septic shock, and ARF from LE cellulitis. Additionally he was found to have a right ischial pressure ulcer. It was recommended that he go for inpatient rehab but he refused and has been discharged home. He has a caregiver approximately 6 hrs per day. Patient has a history of using Farrow Wraps for his lymphedema but these are worn out and patient has not been able to use for some time. Has not used a lymphedema pump. He presents today for physical therapy reporting a new wound on his left LE. He uses a power wheelchair with tilt in space and elevating legrests . Able to take a few steps using large -based quad cane on right. Prior Treatments and Tests Farrow wraps Current treatment in wound care for ischial pressure ulcer Wound care nurse consulted today for new wound anterior left lower leg; she dressed with bandage Treatment Goals Patient/Caregiver Goals Decrease lymphedema, improve mobility, obtain new Farrow Wraps, be able to self-manage lymphedema with assist of caregiver Prior Functional Status Baseline Function- ADL's Needs Assist Baseline Function- Mobility Needs Assist Baseline Function- Gait 5 ft with LBQC, CGA Baseline Function- Recreation/Hobbies none, reports watching TV Baseline Function- Other low activity level Current Functional Impairments (Reported) Functional Limitations- ADL's Decreased ability to transfer and perform bed mobility due to weight of legs Functional Limitations- Mobility/Gait Decreased ability to ambulate due to weight of legs Functional Limitations- Work/School disabled PT-OP-C Subjective Start: 04/25/19 14:28 Freq: Status: Active Protocol: Document 08/15/19 15:57 SAK (Rec: 08/15/19 16:08 [facility] [id number]) OP-PT Subjective Patient Comments Patient Comments Hasn't had his legs rewrapped since was in wound care , have slid way down. Patient reports being concerned about the swelling in his toes. PT-OP-G Mobility & Gait Start: 04/25/19 14:28 Freq: Status: Active Protocol: Document 04/25/19 14:30 SAK (Rec: 04/26/19 09:40 [facility] [id number]) OP Mobility Evaluation Bed Mobility Rolling mod assist Supine to and from Sit mod assist Transfers Sit to Stand min assist from high surface Wheelchair Management Type of Wheelchair power w/c Special Equipment elevating legrests, tilt in space, small air mattress Assessment Details Roho cushion has been ordered OP Gait Assessment Gait Gait Assistance Required: Contact Guard Assist Distance (Feet) 5 Assistive Devices Assistive Device Large Based Quad Cane Orthotic/Prosthetic Devices or Brace: No Gait Deviations General Gait Pattern Decreased Stride Length, Decreased Feet Clearance, Flexed Trunk,Wide Based Gait Factors Limiting Gait Function Factors Limiting Gait Function Decreased Strength Comments Gait Comments tends to slide left LE Stair Climbing Evaluation Comments Stair Climbing Comments unable PT-OP-K Range of Motion Start: 04/25/19 14:28 Freq: Status: Active Protocol: Document 04/25/19 14:30 SAK (Rec: 04/26/19 09:40 [facility] [id number]) Hip Goniometric Range of Motion Hip natacha Hip ROM WFL No Hip ROM Limitations Hip ROM Limitations Muscle Weakness,Swelling Knee Goniometric Range of Motion Knee natacha Knee ROM WFL No Knee ROM Limitations Knee ROM Limitations Muscle Weakness,Swelling Ankle and Foot Goniometric Range of Motion Ankle and Foot natacha Ankle/Foot ROM WFL No Ankle and Foot ROM Limitations ROM Limitations Muscle Weakness,Swelling PT-OP-M Strength Start: 04/25/19 14:28 Freq: Status: Active Protocol: Document 04/25/19 14:30 [facility] (Rec: 04/26/19 09:40 [facility] [id number]) Hip Strength Hip Manual Muscle Testing natacha Comments patient unable to lift against gravity, requires assistance lifting left LE on/off bed Knee Strength Knee Manual Muscle Testing natacha Reason Not Measured Behavior Comments able to extend natacha knees against gravity Ankle/Foot Strength Ankle and Foot Manual Muscle Testing natacha Comments lacking full active motion due to swelling PT-OP-N Lymphedema Start: 04/25/19 14:28 Freq: Status: Active Protocol: Document 08/15/19 15:57 [facility] (Rec: 08/15/19 16:11 [facility] [id number]) Lymphedema Measurements Lower Extremity Circumference Measurements Left MT Heads 36.7 cm Medial Malleolus 35.7 cm 10 cm From Medial Malleolus 56.7 cm 20 cm From Medial Malleolus 65.8 cm 30 cm From Medial Malleolus 69.7 cm 40 cm From Medial Malleolus 63.5 cm 50 cm From Medial Malleolus 69.5 cm Right MT Heads 28.8 cm Medial Malleolus 30.5 cm 10 cm From Medial Malleolus 33.9 cm 20 cm From Medial Malleolus 48.8 cm 30 cm From Medial Malleolus 58.5 cm 40 cm From Medial Malleolus 54.3 cm 50 cm From Medial Malleolus 54.3 cm PT-OP-Q Treatments Start: 04/25/19 14:28 Freq: Status: Active Protocol: Document 08/15/19 15:57 [facility] (Rec: 08/15/19 16:08 [facility] [id number]) Cardio Equipment Recumbent Stepper (Sci-Fit) Duration (Minutes) 10 Resistance 1 Seat Position wheel chair Therapeutic Exercises Supine Exercises abdominal breathing Reps/Minutes 5x2 abdominal crunch Reps/Minutes 10x foot inv/ev Reps/Minutes 10x2 Comments max assist left SAQ Reps/Minutes 10x2 Comments mod assist left hip IR/ER Reps/Minutes 10x Comments max assist left hip abd Reps/Minutes 10x Comments AAROM right, max assist left heel slides Reps/Minutes 10x Comments AAROM right, max assist left glut sets Reps/Minutes 10x quad sets Reps/Minutes 10x ankle pumps Supine Exercise Name pumps, inve/ev, circles Reps/Minutes 10x Comments max assist left Therapeutic Activity Therapeutic Activity transfers Name w/c to and from mat table Reps/Minutes 1x Comments ambulated 10' min assist from caregiver sit to supine and supine to sit with max assist for left LE, min UE upper body Lymphedema Treatment Lymphedema Wrapping Body Location natacha LE's toes to knees Materials Comprilan and Artiflex with foam at ankle to obtain cylindrical shape for wrapping . PT-OP-R Modalities Start: 04/25/19 14:28 Freq: Status: Active Protocol: Document 08/15/19 15:57 [facility] (Rec: 08/15/19 16:08 [facility] [id number]) Compression Pump Treatment Treatment Location Right Leg Pressure Amount (mmHg) (mmHG) 40 Inflation Time (Seconds) 30 Deflation Time (Seconds) 10 Treatment Duration (minutes) 10 Treatment Tolerance Good Left Leg Pressure Amount (mmHg) (mmHG) 40 Inflation Time (Seconds) 30 Deflation Time (Seconds) 10 Treatment Duration (minutes) 30 Treatment Tolerance Good PT-OP-T Assessment and Plan Start: 04/25/19 14:28 Freq: Status: Active Protocol: Document 08/15/19 15:57 [facility] (Rec: 08/15/19 16:08 [facility] [id number]) Physical Therapy Assessment Goals Three Impairment Functional mobility Short Term Goal (STG) Patient will require only min assist for transfers in/out of bed 06/21/19: some goal progress 07/28/19: Pt able to assist with right LE STG Duration 6 wks [employer] M[employer] Supervisor Goal (LTG) Patient will be able to get in and out of bed independently LTG Duration 12 wks Two Impairment bilateral LE strength and ROM deficits Longterm Goal (LTG) Patient to demonstrate LE ROM WNL and improved functional strength to allow him to lift/ move his left LE without assistance. 06/21/19: no significan progress due to heaviness from lymphedema 07/28/19: Pt able to heel slide and lift right LE making progress, ROM limited by lymphedema LTG Duration 12 wks One Impairment lymphedema Short Term Goal (STG) Patient to be compliant with home lymphedema wrapping and sequential lymphedema exercises with the assistance of his caregiver. 06/21/19: good goal progress 07/28/19: progressing with new caregiver. STG Duration 6 wks Longterm Goal (LTG) Decrease and stabilize lymphedema bilateral LE's (no increase or decrease greater than 1 cm over the course of 1 week) and have patient fit with appropriate compression garments; anticipate adjustable lymphedema wraps for long-term edema management . Patient (with assistance of caregiver) to demonstrate independent edema management ability via appropriately using lymphedema pump, applying compression garments, performing sequential lymphedema exercises. 06/21/19: still awaiting lymphedema pump and approval for lymphedema wraps. Patient also still awaiting hospital bed which was ordered prior to lymphedema pump and wraps. LTG Duration 12 wks Assessment Summary Assessment Patient's edema mostly decreased right LE and mostly increased (see measurements) in left LE. Patient presented with wraps around his ankles causing some tourniquet effect; patient and caregiver cautioned to remove and rewrap when they slide down. Caregiver stated wrapping patient's LE's is not on his careplan but he has asked if it can be added. Physical Therapy Plan Frequency and Duration Frequency of Treatment 2x/Week Duration of Treatment 12 wks Plan of Care Start Date 07/28/19 Plan of Care End Date 10/26/19 Next Visit Focus/Plan Next Note Type Treatment Note Next Visit Plan Continue lymphedema management per POC.
--- NOTE | 2019-08-17 16:01 | PT.OTN ---
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 (08/17/19) Obesity, unspecified (08/17/19) Hemiplegia, unspecified affecting left nondominant side (08/17/19) Lymphedema, not elsewhere classified (08/17/19) Weakness (08/17/19) Physical Therapy Treatment Note PT-OP-A Visit Information Start: 04/25/19 14:28 Freq: Status: Active Protocol: Document 08/17/19 15:53 [facility] (Rec: 08/17/19 15:57 [facility] [id number]) Out-Patient Physical Therapy Visit Information Visit Information Visit Type Treatment Note Visit Start Time 14:30 Visit Stop Time 16:00 Total Visit Minutes 90 Visit Number 15 Number of SENIOR CONSULTANT Visits 7 PT-OP-B Current Condition Start: 04/25/19 14:28 Freq: Status: Active Protocol: Document 04/25/19 14:30 [facility] (Rec: 04/26/19 09:40 [facility] [id number]) Current Condition History of Current Condition Onset Date 20+ years Current Complaints lymphedema bilateral LE's left greater than right History of Current Condition Patient reports 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 Since that time he has developed lymphedema, been treated for cellulitis and LE wounds. Most recently he was in the hospital from 03/21/19 to 04/05/19 with sepsis, septic shock, and ARF from LE cellulitis. Additionally he was found to have a right ischial pressure ulcer. It was recommended that he go for inpatient rehab but he refused and has been discharged home. He has a caregiver approximately 6 hrs per day. Patient has a history of using Farrow Wraps for his lymphedema but these are worn out and patient has not been able to use for some time. Has not used a lymphedema pump. He presents today for physical therapy reporting a new wound on his left LE. He uses a power wheelchair with tilt in space and elevating legrests . Able to take a few steps using large -based quad cane on right. Prior Treatments and Tests Farrow wraps Current treatment in wound care for ischial pressure ulcer Wound care nurse consulted today for new wound anterior left lower leg; she dressed with bandage Treatment Goals Patient/Caregiver Goals Decrease lymphedema, improve mobility, obtain new Farrow Wraps, be able to self-manage lymphedema with assist of caregiver Prior Functional Status Baseline Function- ADL's Needs Assist Baseline Function- Mobility Needs Assist Baseline Function- Gait 5 ft with LBQC, CGA Baseline Function- Recreation/Hobbies none, reports watching TV Baseline Function- Other low activity level Current Functional Impairments (Reported) Functional Limitations- ADL's Decreased ability to transfer and perform bed mobility due to weight of legs Functional Limitations- Mobility/Gait Decreased ability to ambulate due to weight of legs Functional Limitations- Work/School disabled PT-OP-C Subjective Start: 04/25/19 14:28 Freq: Status: Active Protocol: Document 08/17/19 15:53 [facility] (Rec: 08/17/19 15:57 [facility] [id number]) OP-PT Subjective Patient Comments Patient Comments No new c/o. Saw wound care for his left toe region and buttock wounds. Presents with lymphedema wraps mostly intact. PT-OP-G Mobility & Gait Start: 04/25/19 14:28 Freq: Status: Active Protocol: Document 04/25/19 14:30 [facility] (Rec: 04/26/19 09:40 [facility] [id number]) OP Mobility Evaluation Bed Mobility Rolling mod assist Supine to and from Sit mod assist Transfers Sit to Stand min assist from high surface Wheelchair Management Type of Wheelchair power w/c Special Equipment elevating legrests, tilt in space, small air mattress Assessment Details Roho cushion has been ordered OP Gait Assessment Gait Gait Assistance Required: Contact Guard Assist Distance (Feet) 5 Assistive Devices Assistive Device Large Based Quad Cane Orthotic/Prosthetic Devices or Brace: No Gait Deviations General Gait Pattern Decreased Stride Length, Decreased Feet Clearance, Flexed Trunk,Wide Based Gait Factors Limiting Gait Function Factors Limiting Gait Function Decreased Strength Comments Gait Comments tends to slide left LE Stair Climbing Evaluation Comments Stair Climbing Comments unable PT-OP-K Range of Motion Start: 04/25/19 14:28 Freq: Status: Active Protocol: Document 04/25/19 14:30 [facility] (Rec: 04/26/19 09:40 [facility] [id number]) Hip Goniometric Range of Motion Hip natacha Hip ROM WFL No Hip ROM Limitations Hip ROM Limitations Muscle Weakness,Swelling Knee Goniometric Range of Motion Knee natacha Knee ROM WFL No Knee ROM Limitations Knee ROM Limitations Muscle Weakness,Swelling Ankle and Foot Goniometric Range of Motion Ankle and Foot natacha Ankle/Foot ROM WFL No Ankle and Foot ROM Limitations ROM Limitations Muscle Weakness,Swelling PT-OP-M Strength Start: 04/25/19 14:28 Freq: Status: Active Protocol: Document 04/25/19 14:30 [facility] (Rec: 04/26/19 09:40 [facility] [id number]) Hip Strength Hip Manual Muscle Testing natacha Comments patient unable to lift against gravity, requires assistance lifting left LE on/off bed Knee Strength Knee Manual Muscle Testing natacha Reason Not Measured Behavior Comments able to extend natacha knees against gravity Ankle/Foot Strength Ankle and Foot Manual Muscle Testing natacha Comments lacking full active motion due to swelling PT-OP-N Lymphedema Start: 04/25/19 14:28 Freq: Status: Active Protocol: Document 08/17/19 15:53 [facility] (Rec: 08/17/19 15:57 [facility] [id number]) Lymphedema Measurements Lower Extremity Circumference Measurements Left MT Heads 33.3 cm Medial Malleolus 36 cm 10 cm From Medial Malleolus 46.5 cm 20 cm From Medial Malleolus 64 cm 30 cm From Medial Malleolus 67 cm 40 cm From Medial Malleolus 63.3 cm 50 cm From Medial Malleolus 69.7 cm Right MT Heads 27.5 cm Medial Malleolus 29.8 cm 10 cm From Medial Malleolus 33.5 cm 20 cm From Medial Malleolus 46 cm 30 cm From Medial Malleolus 54.6 cm 40 cm From Medial Malleolus 54.8 cm 50 cm From Medial Malleolus 66.5 cm PT-OP-Q Treatments Start: 04/25/19 14:28 Freq: Status: Active Protocol: Document 08/17/19 15:57 [facility] (Rec: 08/17/19 16:01 [facility] [id number]) Cardio Equipment Recumbent Stepper (Sci-Fit) Duration (Minutes) 10 Resistance 1 Seat Position wheel chair Therapeutic Exercises Supine Exercises abdominal breathing Reps/Minutes 5x2 abdominal crunch Reps/Minutes 10x foot inv/ev Reps/Minutes 10x2 Comments max assist left SAQ Reps/Minutes 10x2 Comments mod assist left hip IR/ER Reps/Minutes 10x Comments max assist left hip abd Reps/Minutes 10x Comments AAROM right, max assist left heel slides Reps/Minutes 10x Comments AAROM right, max assist left glut sets Reps/Minutes 10x quad sets Reps/Minutes 10x ankle pumps Supine Exercise Name pumps, inve/ev, circles Reps/Minutes 10x Comments max assist left Therapeutic Activity Therapeutic Activity transfers Name w/c to and from mat table Reps/Minutes 1x Comments ambulated 5' min assist from caregiver sit to supine and supine to sit with max assist for left LE, min UE upper body ( decreased distance due to sore heel right) Lymphedema Treatment Lymphedema Wrapping Body Location natacha LE's toes to knees Materials Comprilan and Artiflex with foam at ankle to obtain cylindrical shape for wrapping . PT-OP-R Modalities Start: 04/25/19 14:28 Freq: Status: Active Protocol: Document 08/17/19 15:57 [facility] (Rec: 08/17/19 16:01 [facility] [id number]) Compression Pump Treatment Treatment Location Right Leg Pressure Amount (mmHg) (mmHG) 40 Inflation Time (Seconds) 30 Deflation Time (Seconds) 10 Treatment Duration (minutes) 10 Treatment Tolerance Good Left Leg Pressure Amount (mmHg) (mmHG) 40 Inflation Time (Seconds) 30 Deflation Time (Seconds) 10 Treatment Duration (minutes) 30 Treatment Tolerance Good PT-OP-T Assessment and Plan Start: 04/25/19 14:28 Freq: Status: Active Protocol: Document 08/17/19 15:57 [facility] (Rec: 08/17/19 16:01 [facility] [id number]) Physical Therapy Assessment Goals Three Impairment Functional mobility Short Term Goal (STG) Patient will require only min assist for transfers in/out of bed 06/21/19: some goal progress 07/28/19: Pt able to assist with right LE STG Duration 6 wks Custodial Goal (LTG) Patient will be able to get in and out of bed independently LTG Duration 12 wks Two Impairment bilateral LE strength and ROM deficits Custodial Goal (LTG) Patient to demonstrate LE ROM WNL and improved functional strength to allow him to lift/ move his left LE without assistance. 06/21/19: no significan progress due to heaviness from lymphedema 07/28/19: Pt able to heel slide and lift right LE making progress, ROM limited by lymphedema LTG Duration 12 wks One Impairment lymphedema Short Term Goal (STG) Patient to be compliant with home lymphedema wrapping and sequential lymphedema exercises with the assistance of his caregiver. 06/21/19: good goal progress 07/28/19: progressing with new caregiver. STG Duration 6 wks Soccer Ball Assembler Goal (LTG) Decrease and stabilize lymphedema bilateral LE's (no increase or decrease greater than 1 cm over the course of 1 week) and have patient fit with appropriate compression garments; anticipate adjustable lymphedema wraps for long-term edema management . Patient (with assistance of caregiver) to demonstrate independent edema management ability via appropriately using lymphedema pump, applying compression garments, performing sequential lymphedema exercises. 06/21/19: still awaiting lymphedema pump and approval for lymphedema wraps. Patient also still awaiting hospital bed which was ordered prior to lymphedema pump and wraps. LTG Duration 12 wks Assessment Summary Assessment Good improvement in circumferential measurements today especially distally and mid-calf with some increase proximally. Physical Therapy Plan Frequency and Duration Frequency of Treatment 2x/Week Duration of Treatment 12 wks Plan of Care Start Date 07/28/19 Plan of Care End Date 10/26/19 Next Visit Focus/Plan Next Note Type Treatment Note Next Visit Plan Continue lymphedema management per POC. Patient to see case management coordinator tomorrow. Will discuss possible senior living facility placement as previously recommended as feel this is best care option for this patient; previously resistant but more receptive today.
--- NOTE | 2019-08-24 15:21 | PT.OTN ---
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 (08/24/19) Obesity, unspecified (08/24/19) Hemiplegia, unspecified affecting left nondominant side (08/24/19) Lymphedema, not elsewhere classified (08/24/19) Weakness (08/24/19) Physical Therapy Treatment Note PT-OP-A Visit Information Start: 04/25/19 14:28 Freq: Status: Active Protocol: Document 08/24/19 15:05 [facility] (Rec: 08/24/19 15:21 [facility] [id number]) Out-Patient Physical Therapy Visit Information Visit Information Visit Type Treatment Note Visit Start Time 13:05 Visit Stop Time 14:25 Total Visit Minutes 90 Visit Number 16 Number of CLINICAL INFORMATICIST Visits 0 PT-OP-B Current Condition Start: 04/25/19 14:28 Freq: Status: Active Protocol: Document 04/25/19 14:30 [facility] (Rec: 04/26/19 09:40 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 Since that time he has developed lymphedema, been treated for cellulitis and LE wounds. Most recently he was in the hospital from 03/21/19 to 04/05/19 with sepsis, septic shock, and ARF from LE cellulitis. Additionally he was found to have a right ischial pressure ulcer. It was recommended that he go for inpatient rehab but he refused and has been discharged home. He has a caregiver approximately 6 hrs per day. Patient has a history of using Farrow Wraps for his lymphedema but these are worn out and patient has not been able to use for some time. Has not used a lymphedema pump. He presents today for physical therapy reporting a new wound on his left LE. He uses a power wheelchair with tilt in space and elevating legrests . Able to take a few steps using large -based quad cane on right. Prior Treatments and Tests Farrow wraps Current treatment in wound care for ischial pressure ulcer Wound care nurse consulted today for new wound anterior left lower leg; she dressed with bandage Treatment Goals Patient/Caregiver Goals Decrease lymphedema, improve mobility, obtain new Farrow Wraps, be able to self-manage lymphedema with assist of caregiver Prior Functional Status Baseline Function- ADL's Needs Assist Baseline Function- Mobility Needs Assist Baseline Function- Gait 5 ft with LBQC, CGA Baseline Function- Recreation/Hobbies none, reports watching TV Baseline Function- Other low activity level Current Functional Impairments (Reported) Functional Limitations- ADL's Decreased ability to transfer and perform bed mobility due to weight of legs Functional Limitations- Mobility/Gait Decreased ability to ambulate due to weight of legs Functional Limitations- Work/School disabled PT-OP-C Subjective Start: 04/25/19 14:28 Freq: Status: Active Protocol: Document 08/24/19 15:05 [facility] (Rec: 08/24/19 15:21 [facility] [id number]) OP-PT Subjective Patient Comments Patient Comments Reports his buttocks seem to be healing a little. wraps mostly stayed on his LE's. Caregiver states when wraps loosen he tries to tighten and retape. States his nurse case manager told him they are waiting for Medicare to approve his bed, lymphedema pump, and wraps. PT-OP-G Mobility & Gait Start: 04/25/19 14:28 Freq: Status: Active Protocol: Document 04/25/19 14:30 [facility] (Rec: 04/26/19 09:40 [facility] [id number]) OP Mobility Evaluation Bed Mobility Rolling mod assist Supine to and from Sit mod assist Transfers Sit to Stand min assist from high surface Wheelchair Management Type of Wheelchair power w/c Special Equipment elevating legrests, tilt in space, small air mattress Assessment Details Roho cushion has been ordered OP Gait Assessment Gait Gait Assistance Required: Contact Guard Assist Distance (Feet) 5 Assistive Devices Assistive Device Large Based Quad Cane Orthotic/Prosthetic Devices or Brace: No Gait Deviations General Gait Pattern Decreased Stride Length, Decreased Feet Clearance, Flexed Trunk,Wide Based Gait Factors Limiting Gait Function Factors Limiting Gait Function Decreased Strength Comments Gait Comments tends to slide left LE Stair Climbing Evaluation Comments Stair Climbing Comments unable PT-OP-K Range of Motion Start: 04/25/19 14:28 Freq: Status: Active Protocol: Document 04/25/19 14:30 [facility] (Rec: 04/26/19 09:40 [facility] [id number]) Hip Goniometric Range of Motion Hip natacha Hip ROM WFL No Hip ROM Limitations Hip ROM Limitations Muscle Weakness,Swelling Knee Goniometric Range of Motion Knee natacha Knee ROM WFL No Knee ROM Limitations Knee ROM Limitations Muscle Weakness,Swelling Ankle and Foot Goniometric Range of Motion Ankle and Foot natacha Ankle/Foot ROM WFL No Ankle and Foot ROM Limitations ROM Limitations Muscle Weakness,Swelling PT-OP-M Strength Start: 04/25/19 14:28 Freq: Status: Active Protocol: Document 04/25/19 14:30 [facility] (Rec: 04/26/19 09:40 [facility] [id number]) Hip Strength Hip Manual Muscle Testing natacha Comments patient unable to lift against gravity, requires assistance lifting left LE on/off bed Knee Strength Knee Manual Muscle Testing natacha Reason Not Measured Behavior Comments able to extend natacha knees against gravity Ankle/Foot Strength Ankle and Foot Manual Muscle Testing natacha Comments lacking full active motion due to swelling PT-OP-N Lymphedema Start: 04/25/19 14:28 Freq: Status: Active Protocol: Document 08/24/19 15:05 [facility] (Rec: 08/24/19 15:21 [facility] [id number]) Lymphedema Measurements Lower Extremity Circumference Measurements Left MT Heads 34.2 cm Medial Malleolus 37.6 cm 10 cm From Medial Malleolus 47.7 cm 20 cm From Medial Malleolus 63.5 cm 30 cm From Medial Malleolus 66.4 cm 40 cm From Medial Malleolus 66.2 cm 50 cm From Medial Malleolus 76.9 cm Right MT Heads 24.8 cm Medial Malleolus 29.4 cm 10 cm From Medial Malleolus 30 cm 20 cm From Medial Malleolus 46.2 cm 30 cm From Medial Malleolus 54.7 cm 40 cm From Medial Malleolus 54.1 cm 50 cm From Medial Malleolus 66 cm PT-OP-Q Treatments Start: 04/25/19 14:28 Freq: Status: Active Protocol: Document 08/24/19 15:05 [facility] (Rec: 08/24/19 15:21 [facility] [id number]) Cardio Equipment Recumbent Stepper (Sci-Fit) Duration (Minutes) 10 Resistance 1 Seat Position wheel chair Other gait belt around LE's below knees for improved left LE alignment Therapeutic Exercises Supine Exercises abdominal breathing Reps/Minutes 5x2 abdominal crunch Reps/Minutes 10x foot inv/ev Reps/Minutes 10x2 Comments max assist left SAQ Reps/Minutes 10x2 Comments mod assist left hip IR/ER Reps/Minutes 10x Comments max assist left hip abd Reps/Minutes 10x Comments AAROM right, max assist left heel slides Reps/Minutes 10x Comments AAROM right, max assist left glut sets Reps/Minutes 10x quad sets Reps/Minutes 10x ankle pumps Supine Exercise Name pumps, inve/ev, circles Reps/Minutes 10x Comments max assist left Therapeutic Activity Therapeutic Activity transfers Name w/c to and from mat table Reps/Minutes 2x Comments ambulated 5' min assist from caregiver sit to supine and supine to sit with max assist for left LE, min UE upper body ( decreased distance due to sore heel right) Lymphedema Treatment Lymphedema Wrapping Body Location natacha LE's toes to knees Materials Comprilan and Artiflex with foam at ankle to obtain cylindrical shape for wrapping . PT-OP-R Modalities Start: 04/25/19 14:28 Freq: Status: Active Protocol: Document 08/24/19 15:05 [facility] (Rec: 08/24/19 15:21 [facility] [id number]) Compression Pump Treatment Treatment Location Right Leg Pressure Amount (mmHg) (mmHG) 40 Inflation Time (Seconds) 30 Deflation Time (Seconds) 10 Treatment Duration (minutes) 10 Treatment Tolerance Good Left Leg Pressure Amount (mmHg) (mmHG) 40 Inflation Time (Seconds) 30 Deflation Time (Seconds) 10 Treatment Duration (minutes) 30 Treatment Tolerance Good PT-OP-T Assessment and Plan Start: 04/25/19 14:28 Freq: Status: Active Protocol: Document 08/24/19 15:05 [facility] (Rec: 08/24/19 15:21 [facility] [id number]) Physical Therapy Assessment Goals Three Impairment Functional mobility Short Term Goal (STG) Patient will require only min assist for transfers in/out of bed 06/21/19: some goal progress 07/28/19: Pt able to assist with right LE STG Duration 6 wks Group Product Manager Goal (LTG) Patient will be able to get in and out of bed independently LTG Duration 12 wks Two Impairment bilateral LE strength and ROM deficits Assisted Goal (LTG) Patient to demonstrate LE ROM WNL and improved functional strength to allow him to lift/ move his left LE without assistance. 06/21/19: no significan progress due to heaviness from lymphedema 07/28/19: Pt able to heel slide and lift right LE making progress, ROM limited by lymphedema LTG Duration 12 wks One Impairment lymphedema Short Term Goal (STG) Patient to be compliant with home lymphedema wrapping and sequential lymphedema exercises with the assistance of his caregiver. 06/21/19: good goal progress 07/28/19: progressing with new caregiver. STG Duration 6 wks Group Product Manager Goal (LTG) Decrease and stabilize lymphedema bilateral LE's (no increase or decrease greater than 1 cm over the course of 1 week) and have patient fit with appropriate compression garments; anticipate adjustable lymphedema wraps for long-term edema management . Patient (with assistance of caregiver) to demonstrate independent edema management ability via appropriately using lymphedema pump, applying compression garments, performing sequential lymphedema exercises. 06/21/19: still awaiting lymphedema pump and approval for lymphedema wraps. Patient also still awaiting hospital bed which was ordered prior to lymphedema pump and wraps. LTG Duration 12 wks Assessment Summary Assessment 3cm decrease circumference right toes, 1.5 in foot. Minimal change left LE. Physical Therapy Plan Frequency and Duration Frequency of Treatment 2x/Week Duration of Treatment 12 wks Plan of Care Start Date 07/28/19 Plan of Care End Date 10/26/19 Next Visit Focus/Plan Next Note Type Treatment Note Next Visit Plan continue lymphedema management .
--- NOTE | 2019-09-27 16:59 | PT.OTN ---
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 (09/27/19) Obesity, unspecified (09/27/19) Hemiplegia, unspecified affecting left nondominant side (09/27/19) Lymphedema, not elsewhere classified (09/27/19) Weakness (09/27/19) Physical Therapy Treatment Note PT-OP-A Visit Information Start: 04/25/19 14:28 Freq: Status: Active Protocol: Document 09/27/19 16:49 [facility] (Rec: 09/27/19 16:59 [facility] [id number]) Out-Patient Physical Therapy Visit Information Visit Information Visit Type Treatment Note Visit Start Time 14:30 Visit Stop Time 16:00 Total Visit Minutes 90 Visit Number 17 Number of MASSEUR/MASSEUSE Visits 0 PT-OP-B Current Condition Start: 04/25/19 14:28 Freq: Status: Active Protocol: Document 04/25/19 14:30 [facility] (Rec: 04/26/19 09:40 [facility] [id number]) Current Condition History of Current Condition Onset Date 20+ years Current Complaints lymphedema bilateral LE's left greater than right History of Current Condition Patient reports 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 Since that time he has developed lymphedema, been treated for cellulitis and LE wounds. Most recently he was in the hospital from 03/21/19 to 04/05/19 with sepsis, septic shock, and ARF from LE cellulitis. Additionally he was found to have a right ischial pressure ulcer. It was recommended that he go for inpatient rehab but he refused and has been discharged home. He has a caregiver approximately 6 hrs per day. Patient has a history of using Farrow Wraps for his lymphedema but these are worn out and patient has not been able to use for some time. Has not used a lymphedema pump. He presents today for physical therapy reporting a new wound on his left LE. He uses a power wheelchair with tilt in space and elevating legrests . Able to take a few steps using large -based quad cane on right. Prior Treatments and Tests Farrow wraps Current treatment in wound care for ischial pressure ulcer Wound care nurse consulted today for new wound anterior left lower leg; she dressed with bandage Treatment Goals Patient/Caregiver Goals Decrease lymphedema, improve mobility, obtain new Farrow Wraps, be able to self-manage lymphedema with assist of caregiver Prior Functional Status Baseline Function- ADL's Needs Assist Baseline Function- Mobility Needs Assist Baseline Function- Gait 5 ft with LBQC, CGA Baseline Function- Recreation/Hobbies none, reports watching TV Baseline Function- Other low activity level Current Functional Impairments (Reported) Functional Limitations- ADL's Decreased ability to transfer and perform bed mobility due to weight of legs Functional Limitations- Mobility/Gait Decreased ability to ambulate due to weight of legs Functional Limitations- Work/School disabled PT-OP-C Subjective Start: 04/25/19 14:28 Freq: Status: Active Protocol: Document 09/27/19 16:49 [facility] (Rec: 09/27/19 16:59 [facility] [id number]) OP-PT Subjective Patient Comments Patient Comments Patient reports his caregiver got and quit his job. Has new caregiver (Sriram) but Sriram is not allowed to do any lymphedema wrapping until he is trained by his company (hopefully by the end of the month.) Alejandro states his social work case manager was unable to find a placement for him. Has had difficulty getting PT appointments scheduled. PT-OP-G Mobility & Gait Start: 04/25/19 14:28 Freq: Status: Active Protocol: Document 04/25/19 14:30 [facility] (Rec: 04/26/19 09:40 [facility] [id number]) OP Mobility Evaluation Bed Mobility Rolling mod assist Supine to and from Sit mod assist Transfers Sit to Stand min assist from high surface Wheelchair Management Type of Wheelchair power w/c Special Equipment elevating legrests, tilt in space, small air mattress Assessment Details Roho cushion has been ordered OP Gait Assessment Gait Gait Assistance Required: Contact Guard Assist Distance (Feet) 5 Assistive Devices Assistive Device Large Based Quad Cane Orthotic/Prosthetic Devices or Brace: No Gait Deviations General Gait Pattern Decreased Stride Length, Decreased Feet Clearance, Flexed Trunk,Wide Based Gait Factors Limiting Gait Function Factors Limiting Gait Function Decreased Strength Comments Gait Comments tends to slide left LE Stair Climbing Evaluation Comments Stair Climbing Comments unable PT-OP-K Range of Motion Start: 04/25/19 14:28 Freq: Status: Active Protocol: Document 04/25/19 14:30 [facility] (Rec: 04/26/19 09:40 [facility] [id number]) Hip Goniometric Range of Motion Hip natacha Hip ROM WFL No Hip ROM Limitations Hip ROM Limitations Muscle Weakness,Swelling Knee Goniometric Range of Motion Knee natacha Knee ROM WFL No Knee ROM Limitations Knee ROM Limitations Muscle Weakness,Swelling Ankle and Foot Goniometric Range of Motion Ankle and Foot natacha Ankle/Foot ROM WFL No Ankle and Foot ROM Limitations ROM Limitations Muscle Weakness,Swelling PT-OP-M Strength Start: 04/25/19 14:28 Freq: Status: Active Protocol: Document 04/25/19 14:30 [facility] (Rec: 04/26/19 09:40 [facility] [id number]) Hip Strength Hip Manual Muscle Testing natacha Comments patient unable to lift against gravity, requires assistance lifting left LE on/off bed Knee Strength Knee Manual Muscle Testing natacha Reason Not Measured Behavior Comments able to extend natacha knees against gravity Ankle/Foot Strength Ankle and Foot Manual Muscle Testing natacha Comments lacking full active motion due to swelling PT-OP-N Lymphedema Start: 04/25/19 14:28 Freq: Status: Active Protocol: Document 08/24/19 15:05 [facility] (Rec: 08/24/19 15:21 [facility] [id number]) Lymphedema Measurements Lower Extremity Circumference Measurements Left MT Heads 34.2 cm Medial Malleolus 37.6 cm 10 cm From Medial Malleolus 47.7 cm 20 cm From Medial Malleolus 63.5 cm 30 cm From Medial Malleolus 66.4 cm 40 cm From Medial Malleolus 66.2 cm 50 cm From Medial Malleolus 76.9 cm Right MT Heads 24.8 cm Medial Malleolus 29.4 cm 10 cm From Medial Malleolus 30 cm 20 cm From Medial Malleolus 46.2 cm 30 cm From Medial Malleolus 54.7 cm 40 cm From Medial Malleolus 54.1 cm 50 cm From Medial Malleolus 66 cm PT-OP-Q Treatments Start: 04/25/19 14:28 Freq: Status: Active Protocol: Document 09/27/19 16:49 [facility] (Rec: 09/27/19 16:59 [facility] [id number]) Cardio Equipment Recumbent Stepper (Sci-Fit) Other not done due to time constraints Therapeutic Exercises Supine Exercises abdominal breathing Reps/Minutes 5x2 abdominal crunch Reps/Minutes 10x foot inv/ev Reps/Minutes 10x2 Comments max assist left SAQ Reps/Minutes 10x2 Comments mod assist left hip IR/ER Reps/Minutes 10x Comments max assist left hip abd Reps/Minutes 10x Comments AAROM right, max assist left heel slides Reps/Minutes 10x Comments AAROM right, max assist left glut sets Reps/Minutes 10x quad sets Reps/Minutes 10x ankle pumps Supine Exercise Name pumps, inve/ev, circles Reps/Minutes 10x Comments max assist left Therapeutic Activity Therapeutic Activity transfers Name w/c to and from mat table Reps/Minutes 2x Comments ambulated 5' min assist from caregiver sit to supine and supine to sit with max assist for left LE, min UE upper body ( decreased distance due to sore heel right) Lymphedema Treatment Lymphedema Wrapping Body Location natacha LE's toes to knees Materials Comprilan and Artiflex with foam at ankle to obtain cylindrical shape for wrapping . PT-OP-R Modalities Start: 04/25/19 14:28 Freq: Status: Active Protocol: Document 09/27/19 16:49 [facility] (Rec: 09/27/19 16:59 [facility] [id number]) Compression Pump Treatment Treatment Location Right Leg Pressure Amount (mmHg) (mmHG) 40 Inflation Time (Seconds) 30 Deflation Time (Seconds) 10 Treatment Duration (minutes) 10 Treatment Tolerance Good Left Leg Pressure Amount (mmHg) (mmHG) 40 Inflation Time (Seconds) 30 Deflation Time (Seconds) 10 Treatment Duration (minutes) 30 Treatment Tolerance Good PT-OP-T Assessment and Plan Start: 04/25/19 14:28 Freq: Status: Active Protocol: Document 09/27/19 16:49 [facility] (Rec: 09/27/19 16:59 [facility] [id number]) Physical Therapy Assessment Goals Three Impairment Functional mobility Short Term Goal (STG) Patient will require only min assist for transfers in/out of bed 06/21/19: some goal progress 07/28/19: Pt able to assist with right LE STG Duration 6 wks Complaint Inspector Goal (LTG) Patient will be able to get in and out of bed independently LTG Duration 12 wks Two Impairment bilateral LE strength and ROM deficits Prison Goal (LTG) Patient to demonstrate LE ROM WNL and improved functional strength to allow him to lift/ move his left LE without assistance. 06/21/19: no significan progress due to heaviness from lymphedema 07/28/19: Pt able to heel slide and lift right LE making progress, ROM limited by lymphedema LTG Duration 12 wks One Impairment lymphedema Short Term Goal (STG) Patient to be compliant with home lymphedema wrapping and sequential lymphedema exercises with the assistance of his caregiver. 06/21/19: good goal progress 07/28/19: progressing with new caregiver. STG Duration 6 wks Complaint Inspector Goal (LTG) Decrease and stabilize lymphedema bilateral LE's (no increase or decrease greater than 1 cm over the course of 1 week) and have patient fit with appropriate compression garments; anticipate adjustable lymphedema wraps for long-term edema management . Patient (with assistance of caregiver) to demonstrate independent edema management ability via appropriately using lymphedema pump, applying compression garments, performing sequential lymphedema exercises. 06/21/19: still awaiting lymphedema pump and approval for lymphedema wraps. Patient also still awaiting hospital bed which was ordered prior to lymphedema pump and wraps. LTG Duration 12 wks Assessment Summary Assessment Circumferential measurements increased today; not seen for PT in over 1 month due to scheduling issues. Patient does not currently have a caregiver who is able to do lymphedema wraps. Left message with new casemanager to discuss treatment challenges. Also left message with Matt Dupont regarding need to obtain Farrow wraps for patient, lymphedema pump previously denied. Skin condition of legs improved with wound care, but swelling signficantly increased. Physical Therapy Plan Frequency and Duration Frequency of Treatment 2x/Week Duration of Treatment 12 wks Plan of Care Start Date 07/28/19 Plan of Care End Date 10/26/19 Next Visit Focus/Plan Next Note Type Treatment Note Next Visit Plan Work with scheduling department to get patient scheduled for PT more regularly as possible for continued lymphedema management. Work with Matt Dupont and social work case manager to help obtain Farrow wraps or most appropriate adjustable wraps for patient's LE lymphedema. Discuss training of caregiver in lymphedema wrapping with social work case manager as patient needs daily frequent attention to his wraps.
--- NOTE | 2019-10-04 12:20 | PT.OTN ---
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 (10/04/19) Obesity, unspecified (10/04/19) Hemiplegia, unspecified affecting left nondominant side (10/04/19) Lymphedema, not elsewhere classified (10/04/19) Weakness (10/04/19) Physical Therapy Treatment Note PT-OP-A Visit Information Start: 04/25/19 14:28 Freq: Status: Active Protocol: Document 10/04/19 12:14 [facility] (Rec: 10/04/19 12:20 [facility] [id number]) Out-Patient Physical Therapy Visit Information Visit Information Visit Type Treatment Note Visit Start Time 14:30 Visit Stop Time 16:00 Total Visit Minutes 90 Visit Number 18 Number of CDL B DRIVER Visits 0 PT-OP-B Current Condition Start: 04/25/19 14:28 Freq: Status: Active Protocol: Document 04/25/19 14:30 [facility] (Rec: 04/26/19 09:40 [facility] [id number]) Current Condition History of Current Condition Onset Date 20+ years Current Complaints lymphedema bilateral LE's left greater than right History of Current Condition Patient reports 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 Since that time he has developed lymphedema, been treated for cellulitis and LE wounds. Most recently he was in the hospital from 03/21/19 to 04/05/19 with sepsis, septic shock, and ARF from LE cellulitis. Additionally he was found to have a right ischial pressure ulcer. It was recommended that he go for inpatient rehab but he refused and has been discharged home. He has a caregiver approximately 6 hrs per day. Patient has a history of using Farrow Wraps for his lymphedema but these are worn out and patient has not been able to use for some time. Has not used a lymphedema pump. He presents today for physical therapy reporting a new wound on his left LE. He uses a power wheelchair with tilt in space and elevating legrests . Able to take a few steps using large -based quad cane on right. Prior Treatments and Tests Farrow wraps Current treatment in wound care for ischial pressure ulcer Wound care nurse consulted today for new wound anterior left lower leg; she dressed with bandage Treatment Goals Patient/Caregiver Goals Decrease lymphedema, improve mobility, obtain new Farrow Wraps, be able to self-manage lymphedema with assist of caregiver Prior Functional Status Baseline Function- ADL's Needs Assist Baseline Function- Mobility Needs Assist Baseline Function- Gait 5 ft with LBQC, CGA Baseline Function- Recreation/Hobbies none, reports watching TV Baseline Function- Other low activity level Current Functional Impairments (Reported) Functional Limitations- ADL's Decreased ability to transfer and perform bed mobility due to weight of legs Functional Limitations- Mobility/Gait Decreased ability to ambulate due to weight of legs Functional Limitations- Work/School disabled PT-OP-C Subjective Start: 04/25/19 14:28 Freq: Status: Active Protocol: Document 10/04/19 12:14 [facility] (Rec: 10/04/19 12:20 [facility] [id number]) OP-PT Subjective Patient Comments Patient Comments No new c/o. Informed patient [employer] for Circ Aids will provide him with LE wraps. Measurements to be taken today. PT-OP-G Mobility & Gait Start: 04/25/19 14:28 Freq: Status: Active Protocol: Document 04/25/19 14:30 [facility] (Rec: 04/26/19 09:40 [facility] [id number]) OP Mobility Evaluation Bed Mobility Rolling mod assist Supine to and from Sit mod assist Transfers Sit to Stand min assist from high surface Wheelchair Management Type of Wheelchair power w/c Special Equipment elevating legrests, tilt in space, small air mattress Assessment Details Roho cushion has been ordered OP Gait Assessment Gait Gait Assistance Required: Contact Guard Assist Distance (Feet) 5 Assistive Devices Assistive Device Large Based Quad Cane Orthotic/Prosthetic Devices or Brace: No Gait Deviations General Gait Pattern Decreased Stride Length, Decreased Feet Clearance, Flexed Trunk,Wide Based Gait Factors Limiting Gait Function Factors Limiting Gait Function Decreased Strength Comments Gait Comments tends to slide left LE Stair Climbing Evaluation Comments Stair Climbing Comments unable PT-OP-K Range of Motion Start: 04/25/19 14:28 Freq: Status: Active Protocol: Document 04/25/19 14:30 [facility] (Rec: 04/26/19 09:40 [facility] [id number]) Hip Goniometric Range of Motion Hip natacha Hip ROM WFL No Hip ROM Limitations Hip ROM Limitations Muscle Weakness,Swelling Knee Goniometric Range of Motion Knee natacha Knee ROM WFL No Knee ROM Limitations Knee ROM Limitations Muscle Weakness,Swelling Ankle and Foot Goniometric Range of Motion Ankle and Foot natacha Ankle/Foot ROM WFL No Ankle and Foot ROM Limitations ROM Limitations Muscle Weakness,Swelling PT-OP-M Strength Start: 04/25/19 14:28 Freq: Status: Active Protocol: Document 04/25/19 14:30 [facility] (Rec: 04/26/19 09:40 [facility] [id number]) Hip Strength Hip Manual Muscle Testing natacha Comments patient unable to lift against gravity, requires assistance lifting left LE on/off bed Knee Strength Knee Manual Muscle Testing natacha Reason Not Measured Behavior Comments able to extend natacha knees against gravity Ankle/Foot Strength Ankle and Foot Manual Muscle Testing natacha Comments lacking full active motion due to swelling PT-OP-N Lymphedema Start: 04/25/19 14:28 Freq: Status: Active Protocol: Document 08/24/19 15:05 [facility] (Rec: 08/24/19 15:21 [facility] [id number]) Lymphedema Measurements Lower Extremity Circumference Measurements Left MT Heads 34.2 cm Medial Malleolus 37.6 cm 10 cm From Medial Malleolus 47.7 cm 20 cm From Medial Malleolus 63.5 cm 30 cm From Medial Malleolus 66.4 cm 40 cm From Medial Malleolus 66.2 cm 50 cm From Medial Malleolus 76.9 cm Right MT Heads 24.8 cm Medial Malleolus 29.4 cm 10 cm From Medial Malleolus 30 cm 20 cm From Medial Malleolus 46.2 cm 30 cm From Medial Malleolus 54.7 cm 40 cm From Medial Malleolus 54.1 cm 50 cm From Medial Malleolus 66 cm PT-OP-Q Treatments Start: 04/25/19 14:28 Freq: Status: Active Protocol: Document 10/04/19 12:14 [facility] (Rec: 10/04/19 12:20 [facility] [id number]) Cardio Equipment Recumbent Stepper (Sci-Fit) Other not done due to time constraints Therapeutic Activity Therapeutic Activity transfers Name w/c to and from mat table Reps/Minutes 2x Comments ambulated 8' min assist from caregiver sit to supine and supine to sit with max assist for left LE, min UE upper body ( decreased distance due to sore heel right) Lymphedema Treatment Lymphedema Wrapping Body Location natacha LE's toes to knees Materials Comprilan and Artiflex with foam at ankle to obtain cylindrical shape for wrapping . Compression Garment Assessment Compression Garment Assessment Details bilateral LE wrapping, measurements sent to [facility] PT-OP-R Modalities Start: 04/25/19 14:28 Freq: Status: Active Protocol: Document 10/04/19 12:14 [facility] (Rec: 10/04/19 12:20 [facility] [id number]) Compression Pump Treatment Treatment Location Left Leg Pressure Amount (mmHg) (mmHG) 40 Inflation Time (Seconds) 30 Deflation Time (Seconds) 10 Treatment Duration (minutes) 30 Treatment Tolerance Good PT-OP-T Assessment and Plan Start: 04/25/19 14:28 Freq: Status: Active Protocol: Document 10/04/19 12:14 [facility] (Rec: 10/04/19 12:20 [facility] [id number]) Physical Therapy Assessment Goals Three Impairment Functional mobility Short Term Goal (STG) Patient will require only min assist for transfers in/out of bed 06/21/19: some goal progress 07/28/19: Pt able to assist with right LE STG Duration 6 wks Cloth Weigher Goal (LTG) Patient will be able to get in and out of bed independently LTG Duration 12 wks Two Impairment bilateral LE strength and ROM deficits Cloth Weigher Goal (LTG) Patient to demonstrate LE ROM WNL and improved functional strength to allow him to lift/ move his left LE without assistance. 06/21/19: no significan progress due to heaviness from lymphedema 07/28/19: Pt able to heel slide and lift right LE making progress, ROM limited by lymphedema LTG Duration 12 wks One Impairment lymphedema Short Term Goal (STG) Patient to be compliant with home lymphedema wrapping and sequential lymphedema exercises with the assistance of his caregiver. 06/21/19: good goal progress 07/28/19: progressing with new caregiver. STG Duration 6 wks Longterm Goal (LTG) Decrease and stabilize lymphedema bilateral LE's (no increase or decrease greater than 1 cm over the course of 1 week) and have patient fit with appropriate compression garments; anticipate adjustable lymphedema wraps for long-term edema management . Patient (with assistance of caregiver) to demonstrate independent edema management ability via appropriately using lymphedema pump, applying compression garments, performing sequential lymphedema exercises. 06/21/19: still awaiting lymphedema pump and approval for lymphedema wraps. Patient also still awaiting hospital bed which was ordered prior to lymphedema pump and wraps. LTG Duration 12 wks Assessment Summary Assessment Mesurements taken for bilateral Circ Aids then bilateral LE lymphedema wrapping performed. Physical Therapy Plan Frequency and Duration Frequency of Treatment 2x/Week Duration of Treatment 12 wks Plan of Care Start Date 07/28/19 Plan of Care End Date 10/26/19 Next Visit Focus/Plan Next Note Type Treatment Note Next Visit Plan Consult with [facility] about recommended Circ-Aids. Continue lymphedema treatment.
--- NOTE | 2019-10-25 16:54 | PT.OTN ---
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 (10/25/19) Obesity, unspecified (10/25/19) Hemiplegia, unspecified affecting left nondominant side (10/25/19) Lymphedema, not elsewhere classified (10/25/19) Weakness (10/25/19) Physical Therapy Treatment Note PT-OP-A Visit Information Start: 04/25/19 14:28 Freq: Status: Active Protocol: Document 10/25/19 16:47 [facility] (Rec: 10/25/19 16:54 [facility] [id number]) Out-Patient Physical Therapy Visit Information Visit Information Visit Type Treatment Note Visit Note shorter treatment time today due to PT availability. 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 Since that time he has developed lymphedema, been treated for cellulitis and LE wounds. Most recently he was in the hospital from 03/21/19 to 04/05/19 with sepsis, septic shock, and ARF from LE cellulitis. Additionally he was found to have a right ischial pressure ulcer. It was recommended that he go for inpatient rehab but he refused and has been discharged home. He has a caregiver approximately 6 hrs per day. Patient has a history of using Farrow Wraps for his lymphedema but these are worn out and patient has not been able to use for some time. Has not used a lymphedema pump. He presents today for physical therapy reporting a new wound on his left LE. He uses a power wheelchair with tilt in space and elevating legrests . Able to take a few steps using large -based quad cane on right. Prior Treatments and Tests Farrow wraps Current treatment in wound care for ischial pressure ulcer Wound care nurse consulted today for new wound anterior left lower leg; she dressed with bandage Treatment Goals Patient/Caregiver Goals Decrease lymphedema, improve mobility, obtain new Farrow Wraps, be able to self-manage lymphedema with assist of caregiver Prior Functional Status Baseline Function- ADL's Needs Assist Baseline Function- Mobility Needs Assist Baseline Function- Gait 5 ft with LBQC, CGA Baseline Function- Recreation/Hobbies none, reports watching TV Baseline Function- Other low activity level Current Functional Impairments (Reported) Functional Limitations- ADL's Decreased ability to transfer and perform bed mobility due to weight of legs Functional Limitations- Mobility/Gait Decreased ability to ambulate due to weight of legs Functional Limitations- Work/School disabled PT-OP-C Subjective Start: 04/25/19 14:28 Freq: Status: Active Protocol: Document 10/25/19 16:47 [facility] (Rec: 10/25/19 16:54 [facility] [id number]) OP-PT Subjective Patient Comments Patient Comments Has new caregiver with him today. No new c/o. Looking forward to receiving Circ Aids soon. Found lymphedema pump in his closet, brought today for evaluation. PT-OP-G Mobility & Gait Start: 04/25/19 14:28 Freq: Status: Active Protocol: Document 04/25/19 14:30 [facility] (Rec: 04/26/19 09:40 [facility] [id number]) OP Mobility Evaluation Bed Mobility Rolling mod assist Supine to and from Sit mod assist Transfers Sit to Stand min assist from high surface Wheelchair Management Type of Wheelchair power w/c Special Equipment elevating legrests, tilt in space, small air mattress Assessment Details Roho cushion has been ordered OP Gait Assessment Gait Gait Assistance Required: Contact Guard Assist Distance (Feet) 5 Assistive Devices Assistive Device Large Based Quad Cane Orthotic/Prosthetic Devices or Brace: No Gait Deviations General Gait Pattern Decreased Stride Length, Decreased Feet Clearance, Flexed Trunk,Wide Based Gait Factors Limiting Gait Function Factors Limiting Gait Function Decreased Strength Comments Gait Comments tends to slide left LE Stair Climbing Evaluation Comments Stair Climbing Comments unable PT-OP-K Range of Motion Start: 04/25/19 14:28 Freq: Status: Active Protocol: Document 04/25/19 14:30 SAK (Rec: 04/26/19 09:40 [facility] [id number]) Hip Goniometric Range of Motion Hip natacha Hip ROM WFL No Hip ROM Limitations Hip ROM Limitations Muscle Weakness,Swelling Knee Goniometric Range of Motion Knee natacha Knee ROM WFL No Knee ROM Limitations Knee ROM Limitations Muscle Weakness,Swelling Ankle and Foot Goniometric Range of Motion Ankle and Foot natacha Ankle/Foot ROM WFL No Ankle and Foot ROM Limitations ROM Limitations Muscle Weakness,Swelling PT-OP-M Strength Start: 04/25/19 14:28 Freq: Status: Active Protocol: Document 04/25/19 14:30 [facility] (Rec: 04/26/19 09:40 [facility]AK [id number]) Hip Strength Hip Manual Muscle Testing natacha Comments patient unable to lift against gravity, requires assistance lifting left LE on/off bed Knee Strength Knee Manual Muscle Testing natacha Reason Not Measured Behavior Comments able to extend natacha knees against gravity Ankle/Foot Strength Ankle and Foot Manual Muscle Testing natacha Comments lacking full active motion due to swelling PT-OP-N Lymphedema Start: 04/25/19 14:28 Freq: Status: Active Protocol: Document 08/24/19 15:05 [facility] (Rec: 08/24/19 15:21 [facility] [id number]) Lymphedema Measurements Lower Extremity Circumference Measurements Left MT Heads 34.2 cm Medial Malleolus 37.6 cm 10 cm From Medial Malleolus 47.7 cm 20 cm From Medial Malleolus 63.5 cm 30 cm From Medial Malleolus 66.4 cm 40 cm From Medial Malleolus 66.2 cm 50 cm From Medial Malleolus 76.9 cm Right MT Heads 24.8 cm Medial Malleolus 29.4 cm 10 cm From Medial Malleolus 30 cm 20 cm From Medial Malleolus 46.2 cm 30 cm From Medial Malleolus 54.7 cm 40 cm From Medial Malleolus 54.1 cm 50 cm From Medial Malleolus 66 cm PT-OP-Q Treatments Start: 04/25/19 14:28 Freq: Status: Active Protocol: Document 10/25/19 16:47 [facility] (Rec: 10/25/19 16:54 [facility] [id number]) Cardio Equipment Recumbent Stepper (Sci-Fit) Other not done due to time constraints Therapeutic Activity Therapeutic Activity transfers Name w/c to and from mat table Reps/Minutes 2x Comments ambulated 8' min assist from caregiver sit to supine and supine to sit with max assist for left LE, min UE upper body ( decreased distance due to sore heel right) Lymphedema Treatment Manual Lymphatic Drainage Comments evaluation of pump: Sequential scouring train operator chief model [id number]. Appears to work well , though unable to adjust pressure; currently set at 50mm Hg. Lymphedema Wrapping Body Location natacha LE's toes to knees Materials Comprilan and Artiflex with foam at ankle to obtain cylindrical shape for wrapping . PT-OP-R Modalities Start: 04/25/19 14:28 Freq: Status: Active Protocol: Document 10/04/19 12:14 [facility] (Rec: 10/04/19 12:20 SAK [id number]) Compression Pump Treatment Treatment Location Left Leg Pressure Amount (mmHg) (mmHG) 40 Inflation Time (Seconds) 30 Deflation Time (Seconds) 10 Treatment Duration (minutes) 30 Treatment Tolerance Good PT-OP-T Assessment and Plan Start: 04/25/19 14:28 Freq: Status: Active Protocol: Document 10/25/19 16:47 [facility] (Rec: 10/25/19 16:54 [facility] [id number]) Physical Therapy Assessment Goals Three Impairment Functional mobility Short Term Goal (STG) Patient will require only min assist for transfers in/out of bed 06/21/19: some goal progress 07/28/19: Pt able to assist with right LE STG Duration 6 wks Intermediate Goal (LTG) Patient will be able to get in and out of bed independently LTG Duration 12 wks Two Impairment bilateral LE strength and ROM deficits Filler Shaker Goal (LTG) Patient to demonstrate LE ROM WNL and improved functional strength to allow him to lift/ move his left LE without assistance. 06/21/19: no significan progress due to heaviness from lymphedema 07/28/19: Pt able to heel slide and lift right LE making progress, ROM limited by lymphedema LTG Duration 12 wks One Impairment lymphedema Short Term Goal (STG) Patient to be compliant with home lymphedema wrapping and sequential lymphedema exercises with the assistance of his caregiver. 06/21/19: good goal progress 07/28/19: progressing with new caregiver. STG Duration 6 wks Intermediate Goal (LTG) Decrease and stabilize lymphedema bilateral LE's (no increase or decrease greater than 1 cm over the course of 1 week) and have patient fit with appropriate compression garments; anticipate adjustable lymphedema wraps for long-term edema management . Patient (with assistance of caregiver) to demonstrate independent edema management ability via appropriately using lymphedema pump, applying compression garments, performing sequential lymphedema exercises. 06/21/19: still awaiting lymphedema pump and approval for lymphedema wraps. Patient also still awaiting hospital bed which was ordered prior to lymphedema pump and wraps. LTG Duration 12 wks Assessment Summary Assessment Measurements have increased small amount but has caregiver who is wrapping so overall more stable than expected from previous experience with this patient. Circ Aids are done and should be delivered this week. Physical Therapy Plan Frequency and Duration Frequency of Treatment 2x/Week Duration of Treatment 12 wks Plan of Care Start Date 07/28/19 Plan of Care End Date 10/26/19 Next Visit Focus/Plan Next Note Type Treatment Note Next Visit Plan Consult with Matt Cresencio about recommended Circ-Aids. Continue lymphedema treatment.
--- NOTE | 2019-10-27 16:47 | PT.OTRE ---
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 (10/27/19) Obesity, unspecified (10/27/19) Hemiplegia, unspecified affecting left nondominant side (10/27/19) Lymphedema, not elsewhere classified (10/27/19) Weakness (10/27/19) Past Medical History (Last Reviewed 01/27/19 @ 11:30 by Ingrid De Santiago MD) Asthma (Acute) HTN (hypertension) (Acute) Hyperlipidemia (Acute) Lymphedema (Acute) Obesity (Acute) Visit Care Team Role Provider Type Asia Mario PA-C Family Provider Non-Staff Primary Care Provider Specialty: Nursing Address: [address] [place] [address], [id number] Email: Ankush Wilburn MD Attending Provider Non-Staff Specialty: Family Practice Address: [address] [place] [address], [id number] Email: Physical Therapy Re-Evaluation PT-OP-A Visit Information Start: 04/25/19 14:28 Freq: Status: Active Protocol: Document 10/27/19 14:39 [facility] (Rec: 10/27/19 15:14 [facility] [id number]) Out-Patient Physical Therapy Visit Information Visit Information Visit Type Treatment Note Visit Start Time 09:45 Visit Stop Time 10:30 Total Visit Minutes 45 Visit Number 20 Number of MANAGER REGIONAL SALES Visits 0 PT-OP-B Current Condition Start: 04/25/19 14:28 Freq: Status: Active Protocol: Document 04/25/19 14:30 [facility] (Rec: 04/26/19 09:40 [facility] [id number]) Current Condition History of Current Condition Onset Date 20+ years Current Complaints lymphedema bilateral LE's left greater than right History of Current Condition Patient reports 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 Since that time he has developed lymphedema, been treated for cellulitis and LE wounds. Most recently he was in the hospital from 03/21/19 to 04/05/19 with sepsis, septic shock, and ARF from LE cellulitis. Additionally he was found to have a right ischial pressure ulcer. It was recommended that he go for inpatient rehab but he refused and has been discharged home. He has a caregiver approximately 6 hrs per day. Patient has a history of using Farrow Wraps for his lymphedema but these are worn out and patient has not been able to use for some time. Has not used a lymphedema pump. He presents today for physical therapy reporting a new wound on his left LE. He uses a power wheelchair with tilt in space and elevating legrests . Able to take a few steps using large -based quad cane on right. Prior Treatments and Tests Farrow wraps Current treatment in wound care for ischial pressure ulcer Wound care nurse consulted today for new wound anterior left lower leg; she dressed with bandage Treatment Goals Patient/Caregiver Goals Decrease lymphedema, improve mobility, obtain new Farrow Wraps, be able to self-manage lymphedema with assist of caregiver Prior Functional Status Baseline Function- ADL's Needs Assist Baseline Function- Mobility Needs Assist Baseline Function- Gait 5 ft with LBQC, CGA Baseline Function- Recreation/Hobbies none, reports watching TV Baseline Function- Other low activity level Current Functional Impairments (Reported) Functional Limitations- ADL's Decreased ability to transfer and perform bed mobility due to weight of legs Functional Limitations- Mobility/Gait Decreased ability to ambulate due to weight of legs Functional Limitations- Work/School disabled PT-OP-C Subjective Start: 04/25/19 14:28 Freq: Status: Active Protocol: Document 10/27/19 14:39 [facility] (Rec: 10/27/19 15:14 [facility] [id number]) OP-PT Subjective Patient Comments Patient Comments No new c/o. Frustrated his Farrow wraps weren't delivered to PT clinic yet today; not able to be fit. Discussed further use of his lymphedema pump he brought last session, turn pressure down to 50; PT printed off user manual for pump and issued to patient. PT-OP-G Mobility & Gait Start: 04/25/19 14:28 Freq: Status: Active Protocol: Document 04/25/19 14:30 [facility] (Rec: 04/26/19 09:40 [facility] [id number]) OP Mobility Evaluation Bed Mobility Rolling mod assist Supine to and from Sit mod assist Transfers Sit to Stand min assist from high surface Wheelchair Management Type of Wheelchair power w/c Special Equipment elevating legrests, tilt in space, small air mattress Assessment Details Roho cushion has been ordered OP Gait Assessment Gait Gait Assistance Required: Contact Guard Assist Distance (Feet) 5 Assistive Devices Assistive Device Large Based Quad Cane Orthotic/Prosthetic Devices or Brace: No Gait Deviations General Gait Pattern Decreased Stride Length, Decreased Feet Clearance, Flexed Trunk,Wide Based Gait Factors Limiting Gait Function Factors Limiting Gait Function Decreased Strength Comments Gait Comments tends to slide left LE Stair Climbing Evaluation Comments Stair Climbing Comments unable PT-OP-K Range of Motion Start: 04/25/19 14:28 Freq: Status: Active Protocol: Document 04/25/19 14:30 [facility] (Rec: 04/26/19 09:40 [facility] [id number]) Hip Goniometric Range of Motion Hip Measured in Degrees natacha Hip ROM WFL No Hip ROM Limitations Hip ROM Limitations Muscle Weakness,Swelling Knee Goniometric Range of Motion Knee Measured in Degrees natacha Knee ROM WFL No Knee ROM Limitations Knee ROM Limitations Muscle Weakness,Swelling Ankle and Foot Goniometric Range of Motion Ankle and Foot Measured in Degrees natacha Ankle/Foot ROM WFL No Ankle and Foot ROM Limitations ROM Limitations Muscle Weakness,Swelling PT-OP-M Strength Start: 04/25/19 14:28 Freq: Status: Active Protocol: Document 04/25/19 14:30 [facility] (Rec: 04/26/19 09:40 [facility] [id number]) Hip Strength Hip Manual Muscle Testing natacha Comments patient unable to lift against gravity, requires assistance lifting left LE on/off bed Knee Strength Knee Manual Muscle Testing natacha Reason Not Measured Behavior Comments able to extend natacha knees against gravity Ankle/Foot Strength Ankle and Foot Manual Muscle Testing natacha Comments lacking full active motion due to swelling PT-OP-N Lymphedema Start: 04/25/19 14:28 Freq: Status: Active Protocol: Document 08/24/19 15:05 [facility] (Rec: 08/24/19 15:21 [facility] [id number]) Lymphedema Measurements Lower Extremity Circumference Measurements Left MT Heads 34.2 cm Medial Malleolus 37.6 cm 10 cm From Medial Malleolus 47.7 cm 20 cm From Medial Malleolus 63.5 cm 30 cm From Medial Malleolus 66.4 cm 40 cm From Medial Malleolus 66.2 cm 50 cm From Medial Malleolus 76.9 cm Right MT Heads 24.8 cm Medial Malleolus 29.4 cm 10 cm From Medial Malleolus 30 cm 20 cm From Medial Malleolus 46.2 cm 30 cm From Medial Malleolus 54.7 cm 40 cm From Medial Malleolus 54.1 cm 50 cm From Medial Malleolus 66 cm PT-OP-Q Treatments Start: 04/25/19 14:28 Freq: Status: Active Protocol: Document 10/27/19 14:39 [facility] (Rec: 10/27/19 15:14 [facility] [id number]) Therapeutic Exercises Supine Exercises abdominal breathing Reps/Minutes 5x2 abdominal crunch Reps/Minutes 10x foot inv/ev Reps/Minutes 10x2 Comments max assist left SAQ Reps/Minutes 10x2 Comments mod assist left hip IR/ER Reps/Minutes 10x Comments max assist left hip abd Reps/Minutes 10x Comments AAROM right, max assist left heel slides Reps/Minutes 10x Comments AAROM right, max assist left glut sets Reps/Minutes 10x quad sets Reps/Minutes 10x ankle pumps Supine Exercise Name pumps, inve/ev, circles Reps/Minutes 10x Comments max assist left Therapeutic Activity Therapeutic Activity transfers Name w/c to and from mat table Reps/Minutes 2x Comments ambulated 8' min assist from caregiver sit to supine and supine to sit with max assist for left LE, min UE upper body ( decreased distance due to sore heel right) Lymphedema Treatment Manual Lymphatic Drainage Location for left LE lymphedema Lymphedema Wrapping Body Location natacha LE's toes to knees Materials Comprilan and Artiflex with foam at ankle to obtain cylindrical shape for wrapping . Sequential Lymphedema Exercises Comments see as listed under ther ex. Encouraged increased frequency of exercises as tolerated. Patient able to do full sit up today for first time. PT-OP-R Modalities Start: 04/25/19 14:28 Freq: Status: Active Protocol: Document 10/04/19 12:14 [facility] (Rec: 10/04/19 12:20 [facility] [id number]) Compression Pump Treatment Treatment Location Left Leg Pressure Amount (mmHg) (mmHG) 40 Inflation Time (Seconds) 30 Deflation Time (Seconds) 10 Treatment Duration (minutes) 30 Treatment Tolerance Good PT-OP-T Assessment and Plan Start: 04/25/19 14:28 Freq: Status: Active Protocol: Document 10/27/19 14:39 [facility] (Rec: 10/27/19 15:14 [facility] [id number]) Physical Therapy Assessment Goals Three Impairment Functional mobility Short Term Goal (STG) Patient will require only min assist for transfers in/out of bed 06/21/19: some goal progress 07/28/19: Pt able to assist with right LE 10/27/19: achieved. STG Duration MET Shelter Goal (LTG) Patient will be able to get in and out of bed independently 10/27/19: goal progress. Goal modified to min assist. LTG Duration 5 weeks Two Impairment bilateral LE strength and ROM deficits Field Sampling Technician Goal (LTG) Patient to demonstrate LE ROM WNL and improved functional strength to allow him to lift/ move his left LE without assistance. 06/21/19: no significan progress due to heaviness from lymphedema 07/28/19: Pt able to heel slide and lift right LE making progress, ROM limited by lymphedema 10/27/19: goal abandoned due to weakness from CVA One Impairment lymphedema Short Term Goal (STG) Patient to be compliant with home lymphedema wrapping and sequential lymphedema exercises with the assistance of his caregiver. 06/21/19: good goal progress 07/28/19: progressing with new caregiver. 10/27/19: goal achieved STG Duration MET Shelter Goal (LTG) Decrease and stabilize lymphedema bilateral LE's (no increase or decrease greater than 1 cm over the course of 1 week) and have patient fit with appropriate compression garments; anticipate adjustable lymphedema wraps for long-term edema management . Patient (with assistance of caregiver) to demonstrate independent edema management ability via appropriately using lymphedema pump, applying compression garments, performing sequential lymphedema exercises. 06/21/19: still awaiting lymphedema pump and approval for lymphedema wraps. Patient also still awaiting hospital bed which was ordered prior to lymphedema pump and wraps. LTG Duration 5 weeks Assessment Summary Assessment Farrow wraps delievered today 4 hours after patient appointment. Consulted with wound care who will apply and issue at next visit if prior to PT. At next PT visit will eval fit and use as well as use of home lymphedema pump. Lymphedema in toes most problematic on right, but patient was able to tolerate wrapping of toes today. Increased compression at toes on left today, will need to be continued under Farrow wraps; will need to instruct caregiver. Physical Therapy Plan Frequency and Duration Frequency of Treatment 2x/wk Duration of Treatment 5 wks Plan of Care Start Date 10/27/19 Plan of Care End Date 12/02/19 Next Visit Focus/Plan Next Note Type Treatment Note Next Visit Plan Assess fit of Farrow wraps, use of pump at home. Continue Lymphedema management 2 further visits. Teach caregiver wrapping of toes for home management. Discuss POC
--- NOTE | 2019-10-27 16:47 | PT.OPPOC ---
Physical, Occupational & Speech Therapy At [facility] 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 (10/27/19) Obesity, unspecified (10/27/19) Hemiplegia, unspecified affecting left nondominant side (10/27/19) Lymphedema, not elsewhere classified (10/27/19) Weakness (10/27/19) Visit Care Team Role Provider Type Asia Mario PA-C Family Provider Non-Staff Primary Care Provider Specialty: Nursing Address: [address] [place] [address], [id number] Email: Ankush Wilburn MD Attending Provider Non-Staff Specialty: Family Practice Address: [address] [place] [address], [id number] Email: Plan Of Care PT-OP-T Assessment and Plan Start: 04/25/19 14:28 Freq: Status: Active Protocol: Document 10/27/19 14:39 [facility]AK (Rec: 10/27/19 15:14 [facility] [id number]) Physical Therapy Assessment Goals Three Impairment Functional mobility Short Term Goal (STG) Patient will require only min assist for transfers in/out of bed 06/21/19: some goal progress 07/28/19: Pt able to assist with right LE 10/27/19: achieved. STG Duration MET Line Repairer Goal (LTG) Patient will be able to get in and out of bed independently 10/27/19: goal progress. Goal modified to min assist. LTG Duration 5 weeks Two Impairment bilateral LE strength and ROM deficits Line Repairer Goal (LTG) Patient to demonstrate LE ROM WNL and improved functional strength to allow him to lift/ move his left LE without assistance. 06/21/19: no significan progress due to heaviness from lymphedema 07/28/19: Pt able to heel slide and lift right LE making progress, ROM limited by lymphedema 10/27/19: goal abandoned due to weakness from CVA One Impairment lymphedema Short Term Goal (STG) Patient to be compliant with home lymphedema wrapping and sequential lymphedema exercises with the assistance of his caregiver. 06/21/19: good goal progress 07/28/19: progressing with new caregiver. 10/27/19: goal achieved STG Duration MET Retirement Goal (LTG) Decrease and stabilize lymphedema bilateral LE's (no increase or decrease greater than 1 cm over the course of 1 week) and have patient fit with appropriate compression garments; anticipate adjustable lymphedema wraps for long-term edema management . Patient (with assistance of caregiver) to demonstrate independent edema management ability via appropriately using lymphedema pump, applying compression garments, performing sequential lymphedema exercises. 06/21/19: still awaiting lymphedema pump and approval for lymphedema wraps. Patient also still awaiting hospital bed which was ordered prior to lymphedema pump and wraps. LTG Duration 5 weeks Assessment Summary Assessment Farrow wraps delievered today 4 hours after patient appointment. Consulted with wound care who will apply and issue at next visit if prior to PT. At next PT visit will eval fit and use as well as use of home lymphedema pump. Lymphedema in toes most problematic on right, but patient was able to tolerate wrapping of toes today. Increased compression at toes on left today, will need to be continued under Farrow wraps; will need to instruct caregiver. Physical Therapy Plan Frequency and Duration Frequency of Treatment 2x/wk Duration of Treatment 5 wks Plan of Care Start Date 10/27/19 Plan of Care End Date 12/02/19 Next Visit Focus/Plan Next Note Type Treatment Note Next Visit Plan Assess fit of Farrow wraps, use of pump at home. Continue Lymphedema management 2 further visits. Teach caregiver wrapping of toes for home management. Discuss POC Plan of Care Dates Plan of Care Start Date 10/27/19 Plan of Care End Date 12/02/19 Electronically Signed by: Lamar Keith, PT 10/27/19 [id number] Please Sign and Return: I have reviewed this Plan of Care and certify that the skilled therapy services above are required to meet the patient?s needs. Physician Signature Date Printed Name and Credentials Clinical Instructor Signature Printed Name and Credentials
--- NOTE | 2019-11-21 16:31 | PT.OTN ---
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 (11/21/19) Obesity, unspecified (11/21/19) Hemiplegia, unspecified affecting left nondominant side (11/21/19) Lymphedema, not elsewhere classified (11/21/19) Weakness (11/21/19) Physical Therapy Treatment Note PT-OP-A Visit Information Start: 04/25/19 14:28 Freq: Status: Active Protocol: Document 11/21/19 16:07 [facility] (Rec: 11/21/19 16:31 [facility] [id number]) Out-Patient Physical Therapy Visit Information Visit Information Visit Type Treatment Note Visit Start Time 14:30 Visit Stop Time 16:00 Total Visit Minutes 90 Visit Number 21 Number of MOLDER VACUUM Visits 0 PT-OP-B Current Condition Start: 04/25/19 14:28 Freq: Status: Active Protocol: Document 04/25/19 14:30 [facility]AK (Rec: 04/26/19 09:40 [facility] [id number]) Current Condition History of Current Condition Onset Date 20+ years Current Complaints lymphedema bilateral LE's left greater than right History of Current Condition Patient reports 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 Since that time he has developed lymphedema, been treated for cellulitis and LE wounds. Most recently he was in the hospital from 03/21/19 to 04/05/19 with sepsis, septic shock, and ARF from LE cellulitis. Additionally he was found to have a right ischial pressure ulcer. It was recommended that he go for inpatient rehab but he refused and has been discharged home. He has a caregiver approximately 6 hrs per day. Patient has a history of using Farrow Wraps for his lymphedema but these are worn out and patient has not been able to use for some time. Has not used a lymphedema pump. He presents today for physical therapy reporting a new wound on his left LE. He uses a power wheelchair with tilt in space and elevating legrests . Able to take a few steps using large -based quad cane on right. Prior Treatments and Tests Farrow wraps Current treatment in wound care for ischial pressure ulcer Wound care nurse consulted today for new wound anterior left lower leg; she dressed with bandage Treatment Goals Patient/Caregiver Goals Decrease lymphedema, improve mobility, obtain new Farrow Wraps, be able to self-manage lymphedema with assist of caregiver Prior Functional Status Baseline Function- ADL's Needs Assist Baseline Function- Mobility Needs Assist Baseline Function- Gait 5 ft with LBQC, CGA Baseline Function- Recreation/Hobbies none, reports watching TV Baseline Function- Other low activity level Current Functional Impairments (Reported) Functional Limitations- ADL's Decreased ability to transfer and perform bed mobility due to weight of legs Functional Limitations- Mobility/Gait Decreased ability to ambulate due to weight of legs Functional Limitations- Work/School disabled PT-OP-C Subjective Start: 04/25/19 14:28 Freq: Status: Active Protocol: Document 11/21/19 16:07 [facility] (Rec: 11/21/19 16:31 [facility] [id number]) OP-PT Subjective Patient Comments Patient Comments Patient's Farrow wraps applied to his LE's by wound care, he has left them on since last seen 12 days ago, c/o sliding down. Has been using home pump wearing the Farrow wraps. Sees wound care again next week, PT again in 2 days PT-OP-G Mobility & Gait Start: 04/25/19 14:28 Freq: Status: Active Protocol: Document 04/25/19 14:30 [facility] (Rec: 04/26/19 09:40 [facility] [id number]) OP Mobility Evaluation Bed Mobility Rolling mod assist Supine to and from Sit mod assist Transfers Sit to Stand min assist from high surface Wheelchair Management Type of Wheelchair power w/c Special Equipment elevating legrests, tilt in space, small air mattress Assessment Details Roho cushion has been ordered OP Gait Assessment Gait Gait Assistance Required: Contact Guard Assist Distance (Feet) 5 Assistive Devices Assistive Device Large Based Quad Cane Orthotic/Prosthetic Devices or Brace: No Gait Deviations General Gait Pattern Decreased Stride Length, Decreased Feet Clearance, Flexed Trunk,Wide Based Gait Factors Limiting Gait Function Factors Limiting Gait Function Decreased Strength Comments Gait Comments tends to slide left LE Stair Climbing Evaluation Comments Stair Climbing Comments unable PT-OP-K Range of Motion Start: 04/25/19 14:28 Freq: Status: Active Protocol: Document 04/25/19 14:30 [facility] (Rec: 04/26/19 09:40 [facility] [id number]) Hip Goniometric Range of Motion Hip natacha Hip ROM WFL No Hip ROM Limitations Hip ROM Limitations Muscle Weakness,Swelling Knee Goniometric Range of Motion Knee natacha Knee ROM WFL No Knee ROM Limitations Knee ROM Limitations Muscle Weakness,Swelling Ankle and Foot Goniometric Range of Motion Ankle and Foot natacha Ankle/Foot ROM WFL No Ankle and Foot ROM Limitations ROM Limitations Muscle Weakness,Swelling PT-OP-M Strength Start: 04/25/19 14:28 Freq: Status: Active Protocol: Document 04/25/19 14:30 [facility] (Rec: 04/26/19 09:40 [facility] [id number]) Hip Strength Hip Manual Muscle Testing natacha Comments patient unable to lift against gravity, requires assistance lifting left LE on/off bed Knee Strength Knee Manual Muscle Testing natacha Reason Not Measured Behavior Comments able to extend natacha knees against gravity Ankle/Foot Strength Ankle and Foot Manual Muscle Testing natacha Comments lacking full active motion due to swelling PT-OP-N Lymphedema Start: 04/25/19 14:28 Freq: Status: Active Protocol: Document 08/24/19 15:05 [facility] (Rec: 08/24/19 15:21 [facility] [id number]) Lymphedema Measurements Lower Extremity Circumference Measurements Left MT Heads 34.2 cm Medial Malleolus 37.6 cm 10 cm From Medial Malleolus 47.7 cm 20 cm From Medial Malleolus 63.5 cm 30 cm From Medial Malleolus 66.4 cm 40 cm From Medial Malleolus 66.2 cm 50 cm From Medial Malleolus 76.9 cm Right MT Heads 24.8 cm Medial Malleolus 29.4 cm 10 cm From Medial Malleolus 30 cm 20 cm From Medial Malleolus 46.2 cm 30 cm From Medial Malleolus 54.7 cm 40 cm From Medial Malleolus 54.1 cm 50 cm From Medial Malleolus 66 cm PT-OP-Q Treatments Start: 04/25/19 14:28 Freq: Status: Active Protocol: Document 11/21/19 16:07 [facility] (Rec: 11/21/19 16:31 [facility] [id number]) Therapeutic Activity Therapeutic Activity transfers Name w/c to and from mat table Reps/Minutes 2x Comments ambulated 8' min assist from caregiver sit to supine and supine to sit with max assist for left LE, min UE upper body ( decreased distance due to sore heel right) Lymphedema Treatment Lymphedema Wrapping Body Location natacha LE's Materials right LE toe wraps with 1 flex gauze, Size G tricofix, Artiflex to cushion koo, behind knee, Farrow wraps applied; foot, lower leg, knee , and thigh components with education of aide. left LE gauze pads and Artiflex distal foot, Artiflex in ankle crease and knee crease for padding. Size 6 Comprilan distal left foot due to elephantiasis and need for increased distal compression, Farrow wraps to foot, lower leg, knee, and thigh. Patient Education Compression Garments see below Other Correct application of Farrow wraps, remove Farrow wraps daily, provide skin care and skin checks, use home pump without farrow wraps in place, then re-apply Farrow wraps. Other Other skin care with Eucerine applied to bilateral LE's PT-OP-R Modalities Start: 04/25/19 14:28 Freq: Status: Active Protocol: Document 10/04/19 12:14 [facility] (Rec: 10/04/19 12:20 [facility] [id number]) Compression Pump Treatment Treatment Location Left Leg Pressure Amount (mmHg) (mmHG) 40 Inflation Time (Seconds) 30 Deflation Time (Seconds) 10 Treatment Duration (minutes) 30 Treatment Tolerance Good PT-OP-T Assessment and Plan Start: 04/25/19 14:28 Freq: Status: Active Protocol: Document 11/21/19 16:07 [facility] (Rec: 11/21/19 16:31 [facility] [id number]) Physical Therapy Assessment Goals Three Impairment Functional mobility Short Term Goal (STG) Patient will require only min assist for transfers in/out of bed 06/21/19: some goal progress 07/28/19: Pt able to assist with right LE 10/27/19: achieved. STG Duration MET Group Home Goal (LTG) Patient will be able to get in and out of bed independently 10/27/19: goal progress. Goal modified to min assist. LTG Duration 5 weeks Two Impairment bilateral LE strength and ROM deficits Group Home Goal (LTG) Patient to demonstrate LE ROM WNL and improved functional strength to allow him to lift/ move his left LE without assistance. 06/21/19: no significan progress due to heaviness from lymphedema 07/28/19: Pt able to heel slide and lift right LE making progress, ROM limited by lymphedema 10/27/19: goal abandoned due to weakness from CVA One Impairment lymphedema Short Term Goal (STG) Patient to be compliant with home lymphedema wrapping and sequential lymphedema exercises with the assistance of his caregiver. 06/21/19: good goal progress 07/28/19: progressing with new caregiver. 10/27/19: goal achieved STG Duration MET Group Home Goal (LTG) Decrease and stabilize lymphedema bilateral LE's (no increase or decrease greater than 1 cm over the course of 1 week) and have patient fit with appropriate compression garments; anticipate adjustable lymphedema wraps for long-term edema management . Patient (with assistance of caregiver) to demonstrate independent edema management ability via appropriately using lymphedema pump, applying compression garments, performing sequential lymphedema exercises. 06/21/19: still awaiting lymphedema pump and approval for lymphedema wraps. Patient also still awaiting hospital bed which was ordered prior to lymphedema pump and wraps. LTG Duration 5 weeks Assessment Summary Assessment Patient/caregiver not removing Farrow wraps daily or doing daily skin checks or skin care. Skin very dry with irritated areas at left anterior ankle crease. Has been inappropriately wearing Farrow wraps at home while using pneumatic pump and was instructed to remove prior to pumping. Patient and caregiver demonstrated good understanding. Will need further review and full written instructions for self- management. See circumferential measurements; biggest decrease noted bilaterally in lower legs, though foot measurements increased due to lack of daily adjustments to wraps and having wrong side wraps on feet and lower legs. Distal feet/toes still require use of short stretch bandages or possibly Coban. Physical Therapy Plan Frequency and Duration Frequency of Treatment 2x/wk Duration of Treatment 5 wks Plan of Care Start Date 10/27/19 Plan of Care End Date 12/02/19 Next Visit Focus/Plan Next Note Type Treatment Note Next Visit Plan Review appropriate use of compression wraps and home pneumatic pump. Provide review and instruction regarding all aspects of self- care and additional compression distal feet. Determine need for any further PT at this time, possible discharge to self-management.
--- NOTE | 2019-11-23 16:21 | PT.OTN ---
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 (11/23/19) Obesity, unspecified (11/23/19) Hemiplegia, unspecified affecting left nondominant side (11/23/19) Lymphedema, not elsewhere classified (11/23/19) Weakness (11/23/19) Physical Therapy Treatment Note PT-OP-A Visit Information Start: 04/25/19 14:28 Freq: Status: Active Protocol: Document 11/23/19 14:28 [facility] (Rec: 11/23/19 15:46 [facility] [id number]) Out-Patient Physical Therapy Visit Information Visit Information Visit Type Treatment Note Visit Start Time 14:30 Visit Stop Time 15:54 Total Visit Minutes 86 Visit Number 22 Number of COMMUNITY SERVICE COORDINATOR Visits 0 PT-OP-B Current Condition Start: 04/25/19 14:28 Freq: Status: Active Protocol: Document 04/25/19 14:30 [facility] (Rec: 04/26/19 09:40 [facility] [id number]) Current Condition History of Current Condition Onset Date 20+ years Current Complaints lymphedema bilateral LE's left greater than right History of Current Condition Patient reports 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 Since that time he has developed lymphedema, been treated for cellulitis and LE wounds. Most recently he was in the hospital from 03/21/19 to 04/05/19 with sepsis, septic shock, and ARF from LE cellulitis. Additionally he was found to have a right ischial pressure ulcer. It was recommended that he go for inpatient rehab but he refused and has been discharged home. He has a caregiver approximately 6 hrs per day. Patient has a history of using Farrow Wraps for his lymphedema but these are worn out and patient has not been able to use for some time. Has not used a lymphedema pump. He presents today for physical therapy reporting a new wound on his left LE. He uses a power wheelchair with tilt in space and elevating legrests . Able to take a few steps using large -based quad cane on right. Prior Treatments and Tests Farrow wraps Current treatment in wound care for ischial pressure ulcer Wound care nurse consulted today for new wound anterior left lower leg; she dressed with bandage Treatment Goals Patient/Caregiver Goals Decrease lymphedema, improve mobility, obtain new Farrow Wraps, be able to self-manage lymphedema with assist of caregiver Prior Functional Status Baseline Function- ADL's Needs Assist Baseline Function- Mobility Needs Assist Baseline Function- Gait 5 ft with LBQC, CGA Baseline Function- Recreation/Hobbies none, reports watching TV Baseline Function- Other low activity level Current Functional Impairments (Reported) Functional Limitations- ADL's Decreased ability to transfer and perform bed mobility due to weight of legs Functional Limitations- Mobility/Gait Decreased ability to ambulate due to weight of legs Functional Limitations- Work/School disabled PT-OP-C Subjective Start: 04/25/19 14:28 Freq: Status: Active Protocol: Document 11/23/19 14:28 [facility] (Rec: 11/23/19 15:46 [facility] [id number]) OP-PT Subjective Patient Comments Patient Comments No new c/o. Removed wraps and did skin care as instructed. Farrow wraps reapplied. Caregiver states he is a little more comfortable with applying them. Patient has 1 more day of antibiotics for fungal infection left foot. PT-OP-G Mobility & Gait Start: 04/25/19 14:28 Freq: Status: Active Protocol: Document 04/25/19 14:30 [facility] (Rec: 04/26/19 09:40 [facility] [id number]) OP Mobility Evaluation Bed Mobility Rolling mod assist Supine to and from Sit mod assist Transfers Sit to Stand min assist from high surface Wheelchair Management Type of Wheelchair power w/c Special Equipment elevating legrests, tilt in space, small air mattress Assessment Details Roho cushion has been ordered OP Gait Assessment Gait Gait Assistance Required: Contact Guard Assist Distance (Feet) 5 Assistive Devices Assistive Device Large Based Quad Cane Orthotic/Prosthetic Devices or Brace: No Gait Deviations General Gait Pattern Decreased Stride Length, Decreased Feet Clearance, Flexed Trunk,Wide Based Gait Factors Limiting Gait Function Factors Limiting Gait Function Decreased Strength Comments Gait Comments tends to slide left LE Stair Climbing Evaluation Comments Stair Climbing Comments unable PT-OP-K Range of Motion Start: 04/25/19 14:28 Freq: Status: Active Protocol: Document 04/25/19 14:30 [facility] (Rec: 04/26/19 09:40 [facility] [id number]) Hip Goniometric Range of Motion Hip natacha Hip ROM WFL No Hip ROM Limitations Hip ROM Limitations Muscle Weakness,Swelling Knee Goniometric Range of Motion Knee natacha Knee ROM WFL No Knee ROM Limitations Knee ROM Limitations Muscle Weakness,Swelling Ankle and Foot Goniometric Range of Motion Ankle and Foot natacha Ankle/Foot ROM WFL No Ankle and Foot ROM Limitations ROM Limitations Muscle Weakness,Swelling PT-OP-M Strength Start: 04/25/19 14:28 Freq: Status: Active Protocol: Document 04/25/19 14:30 [facility] (Rec: 04/26/19 09:40 [facility] [id number]) Hip Strength Hip Manual Muscle Testing natacha Comments patient unable to lift against gravity, requires assistance lifting left LE on/off bed Knee Strength Knee Manual Muscle Testing natacha Reason Not Measured Behavior Comments able to extend natacha knees against gravity Ankle/Foot Strength Ankle and Foot Manual Muscle Testing natacha Comments lacking full active motion due to swelling PT-OP-N Lymphedema Start: 04/25/19 14:28 Freq: Status: Active Protocol: Document 08/24/19 15:05 [facility] (Rec: 08/24/19 15:21 [facility] [id number]) Lymphedema Measurements Lower Extremity Circumference Measurements Left MT Heads 34.2 cm Medial Malleolus 37.6 cm 10 cm From Medial Malleolus 47.7 cm 20 cm From Medial Malleolus 63.5 cm 30 cm From Medial Malleolus 66.4 cm 40 cm From Medial Malleolus 66.2 cm 50 cm From Medial Malleolus 76.9 cm Right MT Heads 24.8 cm Medial Malleolus 29.4 cm 10 cm From Medial Malleolus 30 cm 20 cm From Medial Malleolus 46.2 cm 30 cm From Medial Malleolus 54.7 cm 40 cm From Medial Malleolus 54.1 cm 50 cm From Medial Malleolus 66 cm PT-OP-Q Treatments Start: 04/25/19 14:28 Freq: Status: Active Protocol: Document 11/23/19 14:28 [facility] (Rec: 11/23/19 15:46 [facility] [id number]) Therapeutic Activity Therapeutic Activity transfers Name w/c to and from mat table Reps/Minutes 2x Comments ambulated 10' min assist from caregiver sit to supine and supine to sit with max assist for left LE, min UE upper body Lymphedema Treatment Lymphedema Wrapping Body Location natacha LE's Materials right LE toe wraps with 1 flex gauze, Size G tricofix, Artiflex to cushion koo, behind knee, Farrow wraps applied; foot, lower leg, knee , and thigh components with education of aide. left LE gauze pads and Artiflex distal foot, Artiflex in ankle crease and knee crease for padding. Coban distal left foot due to elephantiasis and need for increased distal compression, Farrow wraps to foot, lower leg, knee, and thigh. Patient Education Other Further instruction and review with caregiver: correct application of Farrow wraps, remove Farrow wraps daily, provide skin care and skin checks, use home pump without farrow wraps in place, then re -apply Farrow wraps. Other Other no skin care required today due to done at home by caregiver. PT-OP-R Modalities Start: 04/25/19 14:28 Freq: Status: Active Protocol: Document 10/04/19 12:14 [facility] (Rec: 10/04/19 12:20 [facility] [id number]) Compression Pump Treatment Treatment Location Left Leg Pressure Amount (mmHg) (mmHG) 40 Inflation Time (Seconds) 30 Deflation Time (Seconds) 10 Treatment Duration (minutes) 30 Treatment Tolerance Good PT-OP-T Assessment and Plan Start: 04/25/19 14:28 Freq: Status: Active Protocol: Document 11/23/19 14:28 [facility] (Rec: 11/23/19 15:46 [facility] [id number]) Physical Therapy Assessment Goals Three Impairment Functional mobility Short Term Goal (STG) Patient will require only min assist for transfers in/out of bed 06/21/19: some goal progress 07/28/19: Pt able to assist with right LE 10/27/19: achieved. STG Duration MET [facility] Goal (LTG) Patient will be able to get in and out of bed independently 10/27/19: goal progress. Goal modified to min assist. LTG Duration 5 weeks Two Impairment bilateral LE strength and ROM deficits [facility] Goal (LTG) Patient to demonstrate LE ROM WNL and improved functional strength to allow him to lift/ move his left LE without assistance. 06/21/19: no significan progress due to heaviness from lymphedema 07/28/19: Pt able to heel slide and lift right LE making progress, ROM limited by lymphedema 10/27/19: goal abandoned due to weakness from CVA One Impairment lymphedema Short Term Goal (STG) Patient to be compliant with home lymphedema wrapping and sequential lymphedema exercises with the assistance of his caregiver. 06/21/19: good goal progress 07/28/19: progressing with new caregiver. 10/27/19: goal achieved STG Duration MET [facility] Goal (LTG) Decrease and stabilize lymphedema bilateral LE's (no increase or decrease greater than 1 cm over the course of 1 week) and have patient fit with appropriate compression garments; anticipate adjustable lymphedema wraps for long-term edema management . Patient (with assistance of caregiver) to demonstrate independent edema management ability via appropriately using lymphedema pump, applying compression garments, performing sequential lymphedema exercises. 06/21/19: still awaiting lymphedema pump and approval for lymphedema wraps. Patient also still awaiting hospital bed which was ordered prior to lymphedema pump and wraps. LTG Duration 5 weeks Assessment Summary Assessment Skin condition much better today with exception of distal left foot due to fungal infection, patient to return to doctor tomorrow per his report. Patient and caregiver report taking Farrow wraps off for skin check, cleaning, and re-application of wraps as instructed. Decrease in most circumferential measurements today with exception of distal left foot. Use of Coban over dressing left foot, under Farrow wrap for better coverage. Recommend further visits to continue lymphedema management to decrease edema further with manual techniques, continue patient and caregiver education with Farrow wraps for best outcome. Patient continues with wound care clinic. Patient tolerated standing x 2 for adjustment of proximal left thigh Farrow wraps and increased ambulation distance. Physical Therapy Plan Frequency and Duration Frequency of Treatment 2x/wk Duration of Treatment 5 wks Plan of Care Start Date 10/27/19 Plan of Care End Date 12/02/19 Next Visit Focus/Plan Next Note Type Treatment Note Next Visit Plan Feel patient would benefit from further PT for lymphedema management as noted above. Circumferential measurements, MLD, further instruction for distal foot and toe wrapping for best lymphedema reduction and infection prevention. Increase ther ex as tolerated.
--- NOTE | 2020-03-21 12:30 | PT.OTRE ---
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 (03/21/20) Obesity, unspecified (03/21/20) Hemiplegia, unspecified affecting left nondominant side (03/21/20) Lymphedema, not elsewhere classified (03/21/20) Weakness (03/21/20) Past Medical History (Last Reviewed 01/27/19 @ 11:30 by Ingrid De Santiago MD) Asthma (Acute) HTN (hypertension) (Acute) Hyperlipidemia (Acute) Lymphedema (Acute) Obesity (Acute) Visit Care Team Role Provider Type Asia Mario PA-C Family Provider Non-Staff Primary Care Provider Specialty: Nursing Address: [address] [place] [address], [id number] Email: Ankush Wilburn MD Attending Provider Non-Staff Specialty: Family Practice Address: [address] [place] [address], [id number] Email: Physical Therapy Re-Evaluation PT-OP-A Visit Information Start: 04/25/19 14:28 Freq: Status: Active Protocol: Document 03/21/20 11:04 [facility] (Rec: 03/21/20 11:14 [facility] [id number]) Out-Patient Physical Therapy Visit Information Visit Information Visit Type Treatment Note Visit Note shortened treatment due to wound care immediately following PT Visit Start Time 09:45 Visit Stop Time 11:00 Total Visit Minutes 75 Visit Number 23 Number of MOTORCYCLE TECHNICIAN Visits 0 Precautions Precautions Lymphedema natacha LE's left greater than right diagnosed 6 yrs ago DM type II Urinary incontinence Hx CVA with left sided weakness, non ambulatory Morbid obesity reactive airway disease Hypertension diverticulitis trauma wound 12/25/2014 right LE fracture left LE approx 10 yrs ago PT-OP-B Current Condition Start: 04/25/19 14:28 Freq: Status: Active Protocol: Document 04/25/19 14:30 [facility] (Rec: 04/26/19 09:40 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 Since that time he has developed lymphedema, been treated for cellulitis and LE wounds. Most recently he was in the hospital from 03/21/19 to 04/05/19 with sepsis, septic shock, and ARF from LE cellulitis. Additionally he was found to have a right ischial pressure ulcer. It was recommended that he go for inpatient rehab but he refused and has been discharged home. He has a caregiver approximately 6 hrs per day. Patient has a history of using Farrow Wraps for his lymphedema but these are worn out and patient has not been able to use for some time. Has not used a lymphedema pump. He presents today for physical therapy reporting a new wound on his left LE. He uses a power wheelchair with tilt in space and elevating legrests . Able to take a few steps using large -based quad cane on right. Prior Treatments and Tests Farrow wraps Current treatment in wound care for ischial pressure ulcer Wound care nurse consulted today for new wound anterior left lower leg; she dressed with bandage Treatment Goals Patient/Caregiver Goals Decrease lymphedema, improve mobility, obtain new Farrow Wraps, be able to self-manage lymphedema with assist of caregiver Prior Functional Status Baseline Function- ADL's Needs Assist Baseline Function- Mobility Needs Assist Baseline Function- Gait 5 ft with LBQC, CGA Baseline Function- Recreation/Hobbies none, reports watching TV Baseline Function- Other low activity level Current Functional Impairments (Reported) Functional Limitations- ADL's Decreased ability to transfer and perform bed mobility due to weight of legs Functional Limitations- Mobility/Gait Decreased ability to ambulate due to weight of legs Functional Limitations- Work/School disabled PT-OP-C Subjective Start: 04/25/19 14:28 Freq: Status: Active Protocol: Document 03/21/20 11:04 [facility] (Rec: 03/21/20 11:14 [facility] [id number]) OP-PT Subjective Patient Comments Patient Comments Patient and caregiver to appointment today, reporting use of Farrow wraps, has only tried wrapping toes 1x due to difficulty, needs further training for toe wrapping, correct application of Farrow wraps, and wrapping of left foot over dressing. May need to evaluate fit of foot component left Farrow wrap PT-OP-G Mobility & Gait Start: 04/25/19 14:28 Freq: Status: Active Protocol: Document 04/25/19 14:30 [facility] (Rec: 04/26/19 09:40 [facility] [id number]) OP Mobility Evaluation Bed Mobility Rolling mod assist Supine to and from Sit mod assist Transfers Sit to Stand min assist from high surface Wheelchair Management Type of Wheelchair power w/c Special Equipment elevating legrests, tilt in space, small air mattress Assessment Details Roho cushion has been ordered OP Gait Assessment Gait Gait Assistance Required: Contact Guard Assist Distance (Feet) 5 Assistive Devices Assistive Device Large Based Quad Cane Orthotic/Prosthetic Devices or Brace: No Gait Deviations General Gait Pattern Decreased Stride Length, Decreased Feet Clearance, Flexed Trunk,Wide Based Gait Factors Limiting Gait Function Factors Limiting Gait Function Decreased Strength Comments Gait Comments tends to slide left LE Stair Climbing Evaluation Comments Stair Climbing Comments unable PT-OP-K Range of Motion Start: 04/25/19 14:28 Freq: Status: Active Protocol: Document 04/25/19 14:30 [facility] (Rec: 04/26/19 09:40 [facility] [id number]) Hip Goniometric Range of Motion Hip Measured in Degrees natacha Hip ROM WFL No Hip ROM Limitations Hip ROM Limitations Muscle Weakness,Swelling Knee Goniometric Range of Motion Knee Measured in Degrees natacha Knee ROM WFL No Knee ROM Limitations Knee ROM Limitations Muscle Weakness,Swelling Ankle and Foot Goniometric Range of Motion Ankle and Foot Measured in Degrees natacha Ankle/Foot ROM WFL No Ankle and Foot ROM Limitations ROM Limitations Muscle Weakness,Swelling PT-OP-M Strength Start: 04/25/19 14:28 Freq: Status: Active Protocol: Document 04/25/19 14:30 [facility] (Rec: 04/26/19 09:40 [facility] [id number]) Hip Strength Hip Manual Muscle Testing natacha Comments patient unable to lift against gravity, requires assistance lifting left LE on/off bed Knee Strength Knee Manual Muscle Testing natacha Reason Not Measured Behavior Comments able to extend natacha knees against gravity Ankle/Foot Strength Ankle and Foot Manual Muscle Testing natacha Comments lacking full active motion due to swelling PT-OP-N Lymphedema Start: 04/25/19 14:28 Freq: Status: Active Protocol: Document 08/24/19 15:05 [facility] (Rec: 08/24/19 15:21 [facility] [id number]) Lymphedema Measurements Lower Extremity Circumference Measurements Left MT Heads 34.2 cm Medial Malleolus 37.6 cm 10 cm From Medial Malleolus 47.7 cm 20 cm From Medial Malleolus 63.5 cm 30 cm From Medial Malleolus 66.4 cm 40 cm From Medial Malleolus 66.2 cm 50 cm From Medial Malleolus 76.9 cm Right MT Heads 24.8 cm Medial Malleolus 29.4 cm 10 cm From Medial Malleolus 30 cm 20 cm From Medial Malleolus 46.2 cm 30 cm From Medial Malleolus 54.7 cm 40 cm From Medial Malleolus 54.1 cm 50 cm From Medial Malleolus 66 cm PT-OP-Q Treatments Start: 04/25/19 14:28 Freq: Status: Active Protocol: Document 03/21/20 11:04 [facility] (Rec: 03/21/20 11:14 [facility] [id number]) Manual Therapy Treatment Other Other Manual Treatments natacha LE circumferential measurements taken Self-Care/Home Management Treatment Education Caregiver Education Lymphedema wrapping to toes on right (not wrapped on left due to having wound care left foot after PT; caregiver to wrap later after training today on right. Caregiver was instructed in toe wrapping method with him taking video with his phone. Also video of PT putting wrap on left foot and ankle over dressing using Artiflex, Black foam, and Comprilan. Lymphedema Treatment Lymphedema Wrapping Materials as above with caregiver taking video. Farrow wraps applied to bilateral LE with caregiver , reviewing correct technique. Patient Education Compression Garments see below Sequential Lymphedema Exercises continue to review each session Other Further instruction and review with caregiver: correct application of Farrow wraps, remove Farrow wraps daily, provide skin care and skin checks, use home pump without farrow wraps in place, then re -apply Farrow wraps. Other Other Lubriderm applied to patient LE's natacha prior to Farrow wraps and toe wraps PT-OP-R Modalities Start: 04/25/19 14:28 Freq: Status: Active Protocol: Document 10/04/19 12:14 [facility] (Rec: 10/04/19 12:20 [facility] [id number]) Compression Pump Treatment Treatment Location Left Leg Pressure Amount (mmHg) (mmHG) 40 Inflation Time (Seconds) 30 Deflation Time (Seconds) 10 Treatment Duration (minutes) 30 Treatment Tolerance Good PT-OP-T Assessment and Plan Start: 04/25/19 14:28 Freq: Status: Active Protocol: Document 03/21/20 11:04 [facility] (Rec: 03/21/20 11:14 [facility] [id number]) Physical Therapy Assessment Rehab Potential Rehabilitation Potential Good Evaluation Complexity Number of Personal Factors/Comorbidities 3 or More Number of Body Systems Impaired 4 or More Clinical Presentation at Evaluation Unstable Impairments Impairments Edema,Functional Mobility, Integument,ROM Other Impairments Need for caregiver instruction Goals Three Impairment Functional mobility Short Term Goal (STG) Patient will require only min assist for transfers in/out of bed 06/21/19: some goal progress 07/28/19: Pt able to assist with right LE 10/27/19: achieved. STG Duration MET Nursing Home Goal (LTG) Patient will be able to get in and out of bed independently 10/27/19: goal progress. Goal modified to min assist. 03/21/20: no progress due to Covid 19 LTG Duration 04/20/20 Two Impairment bilateral LE strength and ROM deficits Nursing Home Goal (LTG) Patient to demonstrate LE ROM WNL and improved functional strength to allow him to lift/ move his left LE without assistance. 06/21/19: no significan progress due to heaviness from lymphedema 07/28/19: Pt able to heel slide and lift right LE making progress, ROM limited by lymphedema 10/27/19: goal abandoned due to weakness from CVA One Impairment lymphedema Short Term Goal (STG) Patient to be compliant with home lymphedema wrapping and sequential lymphedema exercises with the assistance of his caregiver. 06/21/19: good goal progress 07/28/19: progressing with new caregiver. 10/27/19: goal achieved 03/21/20: Caregiver having difficulty with toe wraps for lymphedema management, and with correct Farrow wrap application. Needs further instruction Tool Planer Set Up Operator Goal (LTG) Decrease and stabilize lymphedema bilateral LE's (no increase or decrease greater than 1 cm over the course of 1 week) and have patient fit with appropriate compression garments; anticipate adjustable lymphedema wraps for long-term edema management . Patient (with assistance of caregiver) to demonstrate independent edema management ability via appropriately using lymphedema pump, applying compression garments, performing sequential lymphedema exercises. 06/21/19: still awaiting lymphedema pump and approval for lymphedema wraps. Patient also still awaiting hospital bed which was ordered prior to lymphedema pump and wraps. 03/21/20: Caregiver needs further instruction as above LTG Duration 04/20/20 Assessment Summary Assessment Patient returns for PT with improvement in circumferential measurements in right lower leg, though not in foot, and noting increase in circumferential measurements on left LE likely due to lack of toe wrapping, need for more compression application through Farrow wraps with better technique. Caregiver needs further education to be able to adequately apply toe wraps and Farrow wraps for best compression and lymphedema reduction. Physical Therapy Plan Frequency and Duration Frequency of Treatment 2x/wk Duration of Treatment 4 wks Plan of Care Start Date 03/21/20 Plan of Care End Date 04/20/20 Therapeutic Interventions Therapeutic Interventions Lymphedema Management,Patient/ Caregiver Education,Self-Care/ Home Management Next Visit Focus/Plan Next Note Type Treatment Note Next Visit Plan Continue lymphedema management with emphasis on correct wrapping of toes as well as left LE to further decrease edema and facilitate wound healing. Evaluate fit of Farrow wrap foot component for left foot (not available today.)
--- NOTE | 2020-03-21 12:31 | PT.OPPOC ---
Physical, Occupational & Speech Therapy At [facility] 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 (03/21/20) Obesity, unspecified (03/21/20) Hemiplegia, unspecified affecting left nondominant side (03/21/20) Lymphedema, not elsewhere classified (03/21/20) Weakness (03/21/20) Visit Care Team Role Provider Type Asia Mario PA-C Family Provider Non-Staff Primary Care Provider Specialty: Nursing Address: [address] [place] [address], [id number] Email: Ankush Wilburn MD Attending Provider Non-Staff Specialty: Family Practice Address: [address] [place] [address], [id number] Email: Plan Of Care PT-OP-T Assessment and Plan Start: 04/25/19 14:28 Freq: Status: Active Protocol: Document 03/21/20 11:04 [facility]ADDE[facility] (Rec: 03/21/20 11:14 [facility] [id number]) Physical Therapy Assessment Rehab Potential Rehabilitation Potential Good Evaluation Complexity Number of Personal Factors/Comorbidities 3 or More Number of Body Systems Impaired 4 or More Clinical Presentation at Evaluation Unstable Impairments Impairments Edema,Functional Mobility, Integument,ROM Other Impairments Need for caregiver instruction Goals Three Impairment Functional mobility Short Term Goal (STG) Patient will require only min assist for transfers in/out of bed 06/21/19: some goal progress 07/28/19: Pt able to assist with right LE 10/27/19: achieved. STG Duration MET [facility] Goal (LTG) Patient will be able to get in and out of bed independently 10/27/19: goal progress. Goal modified to min assist. 03/21/20: no progress due to Covid 19 LTG Duration 04/20/20 Two Impairment bilateral LE strength and ROM deficits [facility] Goal (LTG) Patient to demonstrate LE ROM WNL and improved functional strength to allow him to lift/ move his left LE without assistance. 06/21/19: no significan progress due to heaviness from lymphedema 07/28/19: Pt able to heel slide and lift right LE making progress, ROM limited by lymphedema 10/27/19: goal abandoned due to weakness from CVA One Impairment lymphedema Short Term Goal (STG) Patient to be compliant with home lymphedema wrapping and sequential lymphedema exercises with the assistance of his caregiver. 06/21/19: good goal progress 07/28/19: progressing with new caregiver. 10/27/19: goal achieved 03/21/20: Caregiver having difficulty with toe wraps for lymphedema management, and with correct Farrow wrap application. Needs further instruction [employer] Goal (LTG) Decrease and stabilize lymphedema bilateral LE's (no increase or decrease greater than 1 cm over the course of 1 week) and have patient fit with appropriate compression garments; anticipate adjustable lymphedema wraps for long-term edema management . Patient (with assistance of caregiver) to demonstrate independent edema management ability via appropriately using lymphedema pump, applying compression garments, performing sequential lymphedema exercises. 06/21/19: still awaiting lymphedema pump and approval for lymphedema wraps. Patient also still awaiting hospital bed which was ordered prior to lymphedema pump and wraps. 03/21/20: Caregiver needs further instruction as above LTG Duration 04/20/20 Assessment Summary Assessment Patient returns for PT with improvement in circumferential measurements in right lower leg, though not in foot, and noting increase in circumferential measurements on left LE likely due to lack of toe wrapping, need for more compression application through Farrow wraps with better technique. Caregiver needs further education to be able to adequately apply toe wraps and Farrow wraps for best compression and lymphedema reduction. Physical Therapy Plan Frequency and Duration Frequency of Treatment 2x/wk Duration of Treatment 4 wks Plan of Care Start Date 03/21/20 Plan of Care End Date 04/20/20 Therapeutic Interventions Therapeutic Interventions Lymphedema Management,Patient/ Caregiver Education,Self-Care/ Home Management Next Visit Focus/Plan Next Note Type Treatment Note Next Visit Plan Continue lymphedema management with emphasis on correct wrapping of toes as well as left LE to further decrease edema and facilitate wound healing. Evaluate fit of Farrow wrap foot component for left foot (not available today.) Plan of Care Dates Plan of Care Start Date 03/21/20 Plan of Care End Date 04/20/20 Electronically Signed by: Lamar Keith PT 03/21/20 1231 Please Sign and Return: I have reviewed this Plan of Care and certify that the skilled therapy services above are required to meet the patient?s needs. Physician Signature Date Printed Name and Credentials Clinical Instructor Signature Printed Name and Credentials
--- NOTE | 2020-03-28 15:35 | PT.OTN ---
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 (03/28/20) Obesity, unspecified (03/28/20) Hemiplegia, unspecified affecting left nondominant side (03/28/20) Lymphedema, not elsewhere classified (03/28/20) Weakness (03/28/20) Physical Therapy Treatment Note PT-OP-A Visit Information Start: 04/25/19 14:28 Freq: Status: Active Protocol: Document 03/28/20 15:26 [facility] (Rec: 03/28/20 15:35 [facility] [id number]) Out-Patient Physical Therapy Visit Information Visit Information Visit Type Treatment Note Visit Note Patient has to leave by 3:30 today Visit Start Time 14:25 Visit Stop Time 15:26 Total Visit Minutes 61 Visit Number 24 Number of PAPER BOX CUTTER Visits 0 Precautions Precautions Lymphedema natacha LE's left greater than right diagnosed 6 yrs ago DM type II Urinary incontinence Hx CVA with left sided weakness, non ambulatory Morbid obesity reactive airway disease Hypertension diverticulitis trauma wound 12/25/2014 right LE fracture left LE approx 10 yrs ago PT-OP-B Current Condition Start: 04/25/19 14:28 Freq: Status: Active Protocol: Document 04/25/19 14:30 [facility] (Rec: 04/26/19 09:40 [facility] [id number]) Current Condition History of Current Condition Onset Date 20+ years Current Complaints lymphedema bilateral LE's left greater than right History of Current Condition Patient reports 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 Since that time he has developed lymphedema, been treated for cellulitis and LE wounds. Most recently he was in the hospital from 03/21/19 to 04/05/19 with sepsis, septic shock, and ARF from LE cellulitis. Additionally he was found to have a right ischial pressure ulcer. It was recommended that he go for inpatient rehab but he refused and has been discharged home. He has a caregiver approximately 6 hrs per day. Patient has a history of using Farrow Wraps for his lymphedema but these are worn out and patient has not been able to use for some time. Has not used a lymphedema pump. He presents today for physical therapy reporting a new wound on his left LE. He uses a power wheelchair with tilt in space and elevating legrests . Able to take a few steps using large -based quad cane on right. Prior Treatments and Tests Farrow wraps Current treatment in wound care for ischial pressure ulcer Wound care nurse consulted today for new wound anterior left lower leg; she dressed with bandage Treatment Goals Patient/Caregiver Goals Decrease lymphedema, improve mobility, obtain new Farrow Wraps, be able to self-manage lymphedema with assist of caregiver Prior Functional Status Baseline Function- ADL's Needs Assist Baseline Function- Mobility Needs Assist Baseline Function- Gait 5 ft with LBQC, CGA Baseline Function- Recreation/Hobbies none, reports watching TV Baseline Function- Other low activity level Current Functional Impairments (Reported) Functional Limitations- ADL's Decreased ability to transfer and perform bed mobility due to weight of legs Functional Limitations- Mobility/Gait Decreased ability to ambulate due to weight of legs Functional Limitations- Work/School disabled PT-OP-C Subjective Start: 04/25/19 14:28 Freq: Status: Active Protocol: Document 03/28/20 15:26 [facility] (Rec: 03/28/20 15:35 [facility] [id number]) OP-PT Subjective Patient Comments Patient Comments Caregiver reports he still feels intimidated by toe wrapping. Patient just finished wound care has dressing in place left LE, coming back for PT tomorrow so will wrap toes on left tomorrow. Needs further training. PT-OP-G Mobility & Gait Start: 04/25/19 14:28 Freq: Status: Active Protocol: Document 04/25/19 14:30 [facility] (Rec: 04/26/19 09:40 [facility] [id number]) OP Mobility Evaluation Bed Mobility Rolling mod assist Supine to and from Sit mod assist Transfers Sit to Stand min assist from high surface Wheelchair Management Type of Wheelchair power w/c Special Equipment elevating legrests, tilt in space, small air mattress Assessment Details Roho cushion has been ordered OP Gait Assessment Gait Gait Assistance Required: Contact Guard Assist Distance (Feet) 5 Assistive Devices Assistive Device Large Based Quad Cane Orthotic/Prosthetic Devices or Brace: No Gait Deviations General Gait Pattern Decreased Stride Length, Decreased Feet Clearance, Flexed Trunk,Wide Based Gait Factors Limiting Gait Function Factors Limiting Gait Function Decreased Strength Comments Gait Comments tends to slide left LE Stair Climbing Evaluation Comments Stair Climbing Comments unable PT-OP-K Range of Motion Start: 04/25/19 14:28 Freq: Status: Active Protocol: Document 04/25/19 14:30 [facility] (Rec: 04/26/19 09:40 [facility] [id number]) Hip Goniometric Range of Motion Hip natacha Hip ROM WFL No Hip ROM Limitations Hip ROM Limitations Muscle Weakness,Swelling Knee Goniometric Range of Motion Knee natacha Knee ROM WFL No Knee ROM Limitations Knee ROM Limitations Muscle Weakness,Swelling Ankle and Foot Goniometric Range of Motion Ankle and Foot natacha Ankle/Foot ROM WFL No Ankle and Foot ROM Limitations ROM Limitations Muscle Weakness,Swelling PT-OP-M Strength Start: 04/25/19 14:28 Freq: Status: Active Protocol: Document 04/25/19 14:30 [facility] (Rec: 04/26/19 09:40 [facility] [id number]) Hip Strength Hip Manual Muscle Testing natacha Comments patient unable to lift against gravity, requires assistance lifting left LE on/off bed Knee Strength Knee Manual Muscle Testing natacha Reason Not Measured Behavior Comments able to extend natacha knees against gravity Ankle/Foot Strength Ankle and Foot Manual Muscle Testing natacha Comments lacking full active motion due to swelling PT-OP-N Lymphedema Start: 04/25/19 14:28 Freq: Status: Active Protocol: Document 08/24/19 15:05 [facility] (Rec: 08/24/19 15:21 [facility] [id number]) Lymphedema Measurements Lower Extremity Circumference Measurements Left MT Heads 34.2 cm Medial Malleolus 37.6 cm 10 cm From Medial Malleolus 47.7 cm 20 cm From Medial Malleolus 63.5 cm 30 cm From Medial Malleolus 66.4 cm 40 cm From Medial Malleolus 66.2 cm 50 cm From Medial Malleolus 76.9 cm Right MT Heads 24.8 cm Medial Malleolus 29.4 cm 10 cm From Medial Malleolus 30 cm 20 cm From Medial Malleolus 46.2 cm 30 cm From Medial Malleolus 54.7 cm 40 cm From Medial Malleolus 54.1 cm 50 cm From Medial Malleolus 66 cm PT-OP-Q Treatments Start: 04/25/19 14:28 Freq: Status: Active Protocol: Document 03/28/20 15:26 [facility] (Rec: 03/28/20 15:35 [facility] [id number]) Therapeutic Activity Therapeutic Activity transfers Name w/c to and from mat table Reps/Minutes 2x Comments ambulated 10' min assist from caregiver sit to supine and supine to sit with max assist for left LE, min UE upper body Self-Care/Home Management Treatment Education Caregiver Education Lymphedema wrapping to toes on right, instruction of caregiver. Wrapping of left foot with short stretch bandages left. Farrow wraps reapplied on natacha LE's with continued training for caregiver. Lymphedema Treatment Lymphedema Wrapping Materials as above Patient Education Other Caregiver demonstrates good understanding but performance requires cues and assist for best compression Other Other Lubriderm applied to patient LE's natacha prior to Farrow wraps and toe wraps PT-OP-R Modalities Start: 04/25/19 14:28 Freq: Status: Active Protocol: Document 10/04/19 12:14 [facility] (Rec: 10/04/19 12:20 [facility] [id number]) Compression Pump Treatment Treatment Location Left Leg Pressure Amount (mmHg) (mmHG) 40 Inflation Time (Seconds) 30 Deflation Time (Seconds) 10 Treatment Duration (minutes) 30 Treatment Tolerance Good PT-OP-T Assessment and Plan Start: 04/25/19 14:28 Freq: Status: Active Protocol: Document 03/28/20 15:26 [facility] (Rec: 03/28/20 15:35 [facility] [id number]) Physical Therapy Assessment Impairments Impairments Edema,Functional Mobility, Integument,ROM Other Impairments Need for caregiver instruction Goals Three Impairment Functional mobility Short Term Goal (STG) Patient will require only min assist for transfers in/out of bed 06/21/19: some goal progress 07/28/19: Pt able to assist with right LE 10/27/19: achieved. STG Duration MET [facility] Goal (LTG) Patient will be able to get in and out of bed independently 10/27/19: goal progress. Goal modified to min assist. 03/21/20: no progress due to Covid 19 LTG Duration 04/20/20 One Impairment lymphedema Short Term Goal (STG) Patient to be compliant with home lymphedema wrapping and sequential lymphedema exercises with the assistance of his caregiver. 06/21/19: good goal progress 07/28/19: progressing with new caregiver. 10/27/19: goal achieved 03/21/20: Caregiver having difficulty with toe wraps for lymphedema management, and with correct Farrow wrap application. Needs further instruction [facility] Goal (LTG) Decrease and stabilize lymphedema bilateral LE's (no increase or decrease greater than 1 cm over the course of 1 week) and have patient fit with appropriate compression garments; anticipate adjustable lymphedema wraps for long-term edema management . Patient (with assistance of caregiver) to demonstrate independent edema management ability via appropriately using lymphedema pump, applying compression garments, performing sequential lymphedema exercises. 06/21/19: still awaiting lymphedema pump and approval for lymphedema wraps. Patient also still awaiting hospital bed which was ordered prior to lymphedema pump and wraps. 03/21/20: Caregiver needs further instruction as above LTG Duration 04/20/20 Assessment Summary Assessment Patient returns for PT with improvement in circumferential measurements in right lower leg, though not in foot, and noting increase in circumferential measurements on left LE likely due to lack of toe wrapping, need for more compression application through Farrow wraps with better technique. Caregiver needs further education to be able to adequately apply toe wraps and Farrow wraps for best compression and lymphedema reduction. Difficult to fasten foot component on Farrow wrap for left foot due to edema as well as wound dressing. If unable to decrease edema may need to consider different foot wrap Physical Therapy Plan Frequency and Duration Frequency of Treatment 2x/wk Duration of Treatment 4 wks Plan of Care Start Date 03/21/20 Plan of Care End Date 04/20/20 Therapeutic Interventions Therapeutic Interventions Lymphedema Management,Patient/ Caregiver Education,Self-Care/ Home Management Next Visit Focus/Plan Next Note Type Treatment Note Next Visit Plan Continue lymphedema management with emphasis on correct wrapping of toes as well as left LE to further decrease edema and facilitate wound healing. Problem solve compression for left foot
--- NOTE | 2020-03-29 16:42 | PT.OTN ---
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 (03/29/20) Obesity, unspecified (03/29/20) Hemiplegia, unspecified affecting left nondominant side (03/29/20) Lymphedema, not elsewhere classified (03/29/20) Weakness (03/29/20) Physical Therapy Treatment Note PT-OP-A Visit Information Start: 04/25/19 14:28 Freq: Status: Active Protocol: Document 03/29/20 16:30 [facility] (Rec: 03/29/20 16:42 [facility] [id number]) Out-Patient Physical Therapy Visit Information Visit Information Visit Type Treatment Note Visit Start Time 14:35 Visit Stop Time 16:00 Total Visit Minutes 85 Visit Number 25 Number of LEAD GENERATION REPRESENTATIVE Visits 0 Precautions Precautions Lymphedema natacha LE's left greater than right diagnosed 6 yrs ago DM type II Urinary incontinence Hx CVA with left sided weakness, non ambulatory Morbid obesity reactive airway disease Hypertension diverticulitis trauma wound 12/25/2014 right LE fracture left LE approx 10 yrs ago PT-OP-B Current Condition Start: 04/25/19 14:28 Freq: Status: Active Protocol: Document 04/25/19 14:30 [facility] (Rec: 04/26/19 09:40 [facility] [id number]) Current Condition History of Current Condition Onset Date 20+ years Current Complaints lymphedema bilateral LE's left greater than right History of Current Condition Patient reports 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 Since that time he has developed lymphedema, been treated for cellulitis and LE wounds. Most recently he was in the hospital from 03/21/19 to 04/05/19 with sepsis, septic shock, and ARF from LE cellulitis. Additionally he was found to have a right ischial pressure ulcer. It was recommended that he go for inpatient rehab but he refused and has been discharged home. He has a caregiver approximately 6 hrs per day. Patient has a history of using Farrow Wraps for his lymphedema but these are worn out and patient has not been able to use for some time. Has not used a lymphedema pump. He presents today for physical therapy reporting a new wound on his left LE. He uses a power wheelchair with tilt in space and elevating legrests . Able to take a few steps using large -based quad cane on right. Prior Treatments and Tests Farrow wraps Current treatment in wound care for ischial pressure ulcer Wound care nurse consulted today for new wound anterior left lower leg; she dressed with bandage Treatment Goals Patient/Caregiver Goals Decrease lymphedema, improve mobility, obtain new Farrow Wraps, be able to self-manage lymphedema with assist of caregiver Prior Functional Status Baseline Function- ADL's Needs Assist Baseline Function- Mobility Needs Assist Baseline Function- Gait 5 ft with LBQC, CGA Baseline Function- Recreation/Hobbies none, reports watching TV Baseline Function- Other low activity level Current Functional Impairments (Reported) Functional Limitations- ADL's Decreased ability to transfer and perform bed mobility due to weight of legs Functional Limitations- Mobility/Gait Decreased ability to ambulate due to weight of legs Functional Limitations- Work/School disabled PT-OP-C Subjective Start: 04/25/19 14:28 Freq: Status: Active Protocol: Document 03/29/20 16:30 [facility] (Rec: 03/29/20 16:42 [facility] [id number]) OP-PT Subjective Patient Comments Patient Comments Caregiver reports he still feels intimidated by toe wrapping. Patient just finished wound care has dressing in place left LE, coming back for PT tomorrow so will wrap toes on left tomorrow. Needs further training. PT-OP-G Mobility & Gait Start: 04/25/19 14:28 Freq: Status: Active Protocol: Document 04/25/19 14:30 [facility] (Rec: 04/26/19 09:40 [facility] [id number]) OP Mobility Evaluation Bed Mobility Rolling mod assist Supine to and from Sit mod assist Transfers Sit to Stand min assist from high surface Wheelchair Management Type of Wheelchair power w/c Special Equipment elevating legrests, tilt in space, small air mattress Assessment Details Roho cushion has been ordered OP Gait Assessment Gait Gait Assistance Required: Contact Guard Assist Distance (Feet) 5 Assistive Devices Assistive Device Large Based Quad Cane Orthotic/Prosthetic Devices or Brace: No Gait Deviations General Gait Pattern Decreased Stride Length, Decreased Feet Clearance, Flexed Trunk,Wide Based Gait Factors Limiting Gait Function Factors Limiting Gait Function Decreased Strength Comments Gait Comments tends to slide left LE Stair Climbing Evaluation Comments Stair Climbing Comments unable PT-OP-K Range of Motion Start: 04/25/19 14:28 Freq: Status: Active Protocol: Document 04/25/19 14:30 [facility] (Rec: 04/26/19 09:40 [facility] [id number]) Hip Goniometric Range of Motion Hip natacha Hip ROM WFL No Hip ROM Limitations Hip ROM Limitations Muscle Weakness,Swelling Knee Goniometric Range of Motion Knee natacha Knee ROM WFL No Knee ROM Limitations Knee ROM Limitations Muscle Weakness,Swelling Ankle and Foot Goniometric Range of Motion Ankle and Foot natacha Ankle/Foot ROM WFL No Ankle and Foot ROM Limitations ROM Limitations Muscle Weakness,Swelling PT-OP-M Strength Start: 04/25/19 14:28 Freq: Status: Active Protocol: Document 04/25/19 14:30 [facility] (Rec: 04/26/19 09:40 [facility] [id number]) Hip Strength Hip Manual Muscle Testing natacha Comments patient unable to lift against gravity, requires assistance lifting left LE on/off bed Knee Strength Knee Manual Muscle Testing natacha Reason Not Measured Behavior Comments able to extend natacha knees against gravity Ankle/Foot Strength Ankle and Foot Manual Muscle Testing natacha Comments lacking full active motion due to swelling PT-OP-N Lymphedema Start: 04/25/19 14:28 Freq: Status: Active Protocol: Document 08/24/19 15:05 [facility] (Rec: 08/24/19 15:21 [facility] [id number]) Lymphedema Measurements Lower Extremity Circumference Measurements Left MT Heads 34.2 cm Medial Malleolus 37.6 cm 10 cm From Medial Malleolus 47.7 cm 20 cm From Medial Malleolus 63.5 cm 30 cm From Medial Malleolus 66.4 cm 40 cm From Medial Malleolus 66.2 cm 50 cm From Medial Malleolus 76.9 cm Right MT Heads 24.8 cm Medial Malleolus 29.4 cm 10 cm From Medial Malleolus 30 cm 20 cm From Medial Malleolus 46.2 cm 30 cm From Medial Malleolus 54.7 cm 40 cm From Medial Malleolus 54.1 cm 50 cm From Medial Malleolus 66 cm PT-OP-Q Treatments Start: 04/25/19 14:28 Freq: Status: Active Protocol: Document 03/29/20 16:30 [facility] (Rec: 03/29/20 16:42 [facility] [id number]) Therapeutic Activity Therapeutic Activity transfers Name w/c to and from mat table Reps/Minutes 2x Comments ambulated 10' min assist from caregiver sit to supine and supine to sit with max assist for left LE, min UE upper body Self-Care/Home Management Treatment Education Caregiver Education Lymphedema wrapping to toes on right; performed by caregiver with cues by PT. PT wrapping left toes as possible with comforming bandage after cleansing and dressing by caregiver. Farrow wraps reapplied on natacha LE's with continued training for caregiver. Lymphedema Treatment Patient Education Other Caregiver demonstrates good understanding but performance requires cues and assist for best compression Other Other Lubriderm applied to patient LE's natacha prior to Farrow wraps and toe wraps PT-OP-R Modalities Start: 04/25/19 14:28 Freq: Status: Active Protocol: Document 10/04/19 12:14 [facility] (Rec: 10/04/19 12:20 [facility] [id number]) Compression Pump Treatment Treatment Location Left Leg Pressure Amount (mmHg) (mmHG) 40 Inflation Time (Seconds) 30 Deflation Time (Seconds) 10 Treatment Duration (minutes) 30 Treatment Tolerance Good PT-OP-T Assessment and Plan Start: 04/25/19 14:28 Freq: Status: Active Protocol: Document 03/29/20 16:30 [facility] (Rec: 03/29/20 16:42 [facility] [id number]) Physical Therapy Assessment Impairments Impairments Edema,Functional Mobility, Integument,ROM Other Impairments Need for caregiver instruction Goals Three Impairment Functional mobility Short Term Goal (STG) Patient will require only min assist for transfers in/out of bed 06/21/19: some goal progress 07/28/19: Pt able to assist with right LE 10/27/19: achieved. STG Duration MET Fibre Technologist Goal (LTG) Patient will be able to get in and out of bed independently 10/27/19: goal progress. Goal modified to min assist. 03/21/20: no progress due to Covid 19 LTG Duration 04/20/20 One Impairment lymphedema Short Term Goal (STG) Patient to be compliant with home lymphedema wrapping and sequential lymphedema exercises with the assistance of his caregiver. 06/21/19: good goal progress 07/28/19: progressing with new caregiver. 10/27/19: goal achieved 03/21/20: Caregiver having difficulty with toe wraps for lymphedema management, and with correct Farrow wrap application. Needs further instruction Fibre Technologist Goal (LTG) Decrease and stabilize lymphedema bilateral LE's (no increase or decrease greater than 1 cm over the course of 1 week) and have patient fit with appropriate compression garments; anticipate adjustable lymphedema wraps for long-term edema management . Patient (with assistance of caregiver) to demonstrate independent edema management ability via appropriately using lymphedema pump, applying compression garments, performing sequential lymphedema exercises. 06/21/19: still awaiting lymphedema pump and approval for lymphedema wraps. Patient also still awaiting hospital bed which was ordered prior to lymphedema pump and wraps. 03/21/20: Caregiver needs further instruction as above LTG Duration 04/20/20 Assessment Summary Assessment Extremely difficult to wrap toes due to elephentiasis left foot, but grossly able to get good compression with Artiflex and Comprilan, though feel use of Coban may be even more beneficial. Further training of caregive is required for adequate lymphedema wrapping. Physical Therapy Plan Frequency and Duration Frequency of Treatment 2x/wk Duration of Treatment 4 wks Plan of Care Start Date 03/21/20 Plan of Care End Date 04/20/20 Therapeutic Interventions Therapeutic Interventions Lymphedema Management,Patient/ Caregiver Education,Self-Care/ Home Management Next Visit Focus/Plan Next Note Type Treatment Note Next Visit Plan Continue lymphedema management with emphasis on correct wrapping of toes as well as left LE to further decrease edema and facilitate wound healing. Possible trial use of Coban to determine if more effective than Comprilan.
--- NOTE | 2020-04-03 16:40 | PT.OTN ---
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 (04/03/20) Obesity, unspecified (04/03/20) Hemiplegia, unspecified affecting left nondominant side (04/03/20) Lymphedema, not elsewhere classified (04/03/20) Weakness (04/03/20) Physical Therapy Treatment Note PT-OP-A Visit Information Start: 04/25/19 14:28 Freq: Status: Active Protocol: Document 04/03/20 16:29 [facility] (Rec: 04/03/20 16:40 [facility] [id number]) Out-Patient Physical Therapy Visit Information Visit Information Visit Type Treatment Note Visit Start Time 14:35 Visit Stop Time 16:00 Total Visit Minutes 85 Visit Number 26 Number of ELECTROTHERAPIST Visits 0 Precautions Precautions Lymphedema natacha LE's left greater than right diagnosed 6 yrs ago DM type II Urinary incontinence Hx CVA with left sided weakness, non ambulatory Morbid obesity reactive airway disease Hypertension diverticulitis trauma wound 12/25/2014 right LE fracture left LE approx 10 yrs ago PT-OP-B Current Condition Start: 04/25/19 14:28 Freq: Status: Active Protocol: Document 04/25/19 14:30 [facility] (Rec: 04/26/19 09:40 [facility] [id number]) Current Condition History of Current Condition Onset Date 20+ years Current Complaints lymphedema bilateral LE's left greater than right History of Current Condition Patient reports 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 Since that time he has developed lymphedema, been treated for cellulitis and LE wounds. Most recently he was in the hospital from 03/21/19 to 04/05/19 with sepsis, septic shock, and ARF from LE cellulitis. Additionally he was found to have a right ischial pressure ulcer. It was recommended that he go for inpatient rehab but he refused and has been discharged home. He has a caregiver approximately 6 hrs per day. Patient has a history of using Farrow Wraps for his lymphedema but these are worn out and patient has not been able to use for some time. Has not used a lymphedema pump. He presents today for physical therapy reporting a new wound on his left LE. He uses a power wheelchair with tilt in space and elevating legrests . Able to take a few steps using large -based quad cane on right. Prior Treatments and Tests Farrow wraps Current treatment in wound care for ischial pressure ulcer Wound care nurse consulted today for new wound anterior left lower leg; she dressed with bandage Treatment Goals Patient/Caregiver Goals Decrease lymphedema, improve mobility, obtain new Farrow Wraps, be able to self-manage lymphedema with assist of caregiver Prior Functional Status Baseline Function- ADL's Needs Assist Baseline Function- Mobility Needs Assist Baseline Function- Gait 5 ft with LBQC, CGA Baseline Function- Recreation/Hobbies none, reports watching TV Baseline Function- Other low activity level Current Functional Impairments (Reported) Functional Limitations- ADL's Decreased ability to transfer and perform bed mobility due to weight of legs Functional Limitations- Mobility/Gait Decreased ability to ambulate due to weight of legs Functional Limitations- Work/School disabled PT-OP-C Subjective Start: 04/25/19 14:28 Freq: Status: Active Protocol: Document 04/03/20 16:29 [facility] (Rec: 04/03/20 16:40 [facility] [id number]) OP-PT Subjective Patient Comments Patient Comments No new c/o, arrives with Farrow wraps on right LE fully . On left has wound wrap and lower leg Farrow wrap; caregiver cites time constraints. Patient reports he hasn't been using his lymphedema pump, states he didn't think he was supposed to now that he has his Farrow wraps. PT-OP-G Mobility & Gait Start: 04/25/19 14:28 Freq: Status: Active Protocol: Document 04/25/19 14:30 [facility] (Rec: 04/26/19 09:40 [facility] [id number]) OP Mobility Evaluation Bed Mobility Rolling mod assist Supine to and from Sit mod assist Transfers Sit to Stand min assist from high surface Wheelchair Management Type of Wheelchair power w/c Special Equipment elevating legrests, tilt in space, small air mattress Assessment Details Roho cushion has been ordered OP Gait Assessment Gait Gait Assistance Required: Contact Guard Assist Distance (Feet) 5 Assistive Devices Assistive Device Large Based Quad Cane Orthotic/Prosthetic Devices or Brace: No Gait Deviations General Gait Pattern Decreased Stride Length, Decreased Feet Clearance, Flexed Trunk,Wide Based Gait Factors Limiting Gait Function Factors Limiting Gait Function Decreased Strength Comments Gait Comments tends to slide left LE Stair Climbing Evaluation Comments Stair Climbing Comments unable PT-OP-K Range of Motion Start: 04/25/19 14:28 Freq: Status: Active Protocol: Document 04/25/19 14:30 [facility] (Rec: 04/26/19 09:40 [facility] [id number]) Hip Goniometric Range of Motion Hip natacha Hip ROM WFL No Hip ROM Limitations Hip ROM Limitations Muscle Weakness,Swelling Knee Goniometric Range of Motion Knee natacha Knee ROM WFL No Knee ROM Limitations Knee ROM Limitations Muscle Weakness,Swelling Ankle and Foot Goniometric Range of Motion Ankle and Foot natacha Ankle/Foot ROM WFL No Ankle and Foot ROM Limitations ROM Limitations Muscle Weakness,Swelling PT-OP-M Strength Start: 04/25/19 14:28 Freq: Status: Active Protocol: Document 04/25/19 14:30 [facility] (Rec: 04/26/19 09:40 [facility] [id number]) Hip Strength Hip Manual Muscle Testing natacha Comments patient unable to lift against gravity, requires assistance lifting left LE on/off bed Knee Strength Knee Manual Muscle Testing natacha Reason Not Measured Behavior Comments able to extend natacha knees against gravity Ankle/Foot Strength Ankle and Foot Manual Muscle Testing natacha Comments lacking full active motion due to swelling PT-OP-N Lymphedema Start: 04/25/19 14:28 Freq: Status: Active Protocol: Document 08/24/19 15:05 [facility] (Rec: 08/24/19 15:21 [facility] [id number]) Lymphedema Measurements Lower Extremity Circumference Measurements Left MT Heads 34.2 cm Medial Malleolus 37.6 cm 10 cm From Medial Malleolus 47.7 cm 20 cm From Medial Malleolus 63.5 cm 30 cm From Medial Malleolus 66.4 cm 40 cm From Medial Malleolus 66.2 cm 50 cm From Medial Malleolus 76.9 cm Right MT Heads 24.8 cm Medial Malleolus 29.4 cm 10 cm From Medial Malleolus 30 cm 20 cm From Medial Malleolus 46.2 cm 30 cm From Medial Malleolus 54.7 cm 40 cm From Medial Malleolus 54.1 cm 50 cm From Medial Malleolus 66 cm PT-OP-Q Treatments Start: 04/25/19 14:28 Freq: Status: Active Protocol: Document 04/03/20 16:29 [facility] (Rec: 04/03/20 16:40 [facility] [id number]) Therapeutic Activity Therapeutic Activity transfers Name w/c to and from mat table Reps/Minutes 2x Comments ambulated 10' min assist from caregiver sit to supine and supine to sit with max assist for left LE, min UE upper body Self-Care/Home Management Treatment Education Caregiver Education Lymphedema wrapping left LE, combination lymphedema short stretch bandages, Coban, Farrow thigh wrap Activities Self-Care/Home Management Activities Needs to use lymphedema pump at home; encouraged to bring to PT next session for review of use. Lymphedema Treatment Manual Lymphatic Drainage Location left LE Duration 20 Comments application of Lubriderm lotion to left LE for skin care. Lymphedema Wrapping Body Location left LE Materials Toe wraps, Artiflex and Comprilan, Coban for increased compression left distal foot, Farrow wrap thigh component. Patient Education Other Caregiver demonstrates good understanding but performance requires cues and assist for best compression Other Other Lubriderm applied to patient LE's natacha prior to Farrow wraps and toe wraps PT-OP-R Modalities Start: 04/25/19 14:28 Freq: Status: Active Protocol: Document 10/04/19 12:14 [facility] (Rec: 10/04/19 12:20 [facility] [id number]) Compression Pump Treatment Treatment Location Left Leg Pressure Amount (mmHg) (mmHG) 40 Inflation Time (Seconds) 30 Deflation Time (Seconds) 10 Treatment Duration (minutes) 30 Treatment Tolerance Good PT-OP-T Assessment and Plan Start: 04/25/19 14:28 Freq: Status: Active Protocol: Document 04/03/20 16:29 [facility] (Rec: 04/03/20 16:40 [facility] [id number]) Physical Therapy Assessment Impairments Impairments Edema,Functional Mobility, Integument,ROM Other Impairments Need for caregiver instruction Goals Three Impairment Functional mobility Short Term Goal (STG) Patient will require only min assist for transfers in/out of bed 06/21/19: some goal progress 07/28/19: Pt able to assist with right LE 10/27/19: achieved. STG Duration MET Skilled Nursing Goal (LTG) Patient will be able to get in and out of bed independently 10/27/19: goal progress. Goal modified to min assist. 03/21/20: no progress due to Covid 19 LTG Duration 04/20/20 One Impairment lymphedema Short Term Goal (STG) Patient to be compliant with home lymphedema wrapping and sequential lymphedema exercises with the assistance of his caregiver. 06/21/19: good goal progress 07/28/19: progressing with new caregiver. 10/27/19: goal achieved 03/21/20: Caregiver having difficulty with toe wraps for lymphedema management, and with correct Farrow wrap application. Needs further instruction Business Development Analyst Goal (LTG) Decrease and stabilize lymphedema bilateral LE's (no increase or decrease greater than 1 cm over the course of 1 week) and have patient fit with appropriate compression garments; anticipate adjustable lymphedema wraps for long-term edema management . Patient (with assistance of caregiver) to demonstrate independent edema management ability via appropriately using lymphedema pump, applying compression garments, performing sequential lymphedema exercises. 06/21/19: still awaiting lymphedema pump and approval for lymphedema wraps. Patient also still awaiting hospital bed which was ordered prior to lymphedema pump and wraps. 03/21/20: Caregiver needs further instruction as above LTG Duration 04/20/20 Assessment Summary Assessment see written chart for circumferential measurements left LE, slight reduction ankle region, knee region, otherwise no change. Wrapping toes on left very challenging as well as getting adequat compression, patient has minimal active use of left LE so doesn't get muscle pump for facilitation of lymphatic flow. Instructed to resume use of lymphedema pump at home , bring machine in for review to assure correct use. Trial Coban distal left foot today to increase that compression Physical Therapy Plan Frequency and Duration Frequency of Treatment 2x/wk Duration of Treatment 4 wks Plan of Care Start Date 03/21/20 Plan of Care End Date 04/20/20 Therapeutic Interventions Therapeutic Interventions Lymphedema Management,Patient/ Caregiver Education,Self-Care/ Home Management Next Visit Focus/Plan Next Note Type Treatment Note Next Visit Plan Continue lymphedema management , caregiver training.
--- NOTE | 2020-04-05 16:24 | PT.OTN ---
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 (Rec: 04/05/20 16:24 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 (Rec: 04/26/19 09:40 [facility] [id number]) Current Condition History of Current Condition Onset Date 20+ years Current Complaints lymphedema bilateral LE's left greater than right History of Current Condition Patient reports 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 Since that time he has developed lymphedema, been treated for cellulitis and LE wounds. Most recently he was in the hospital from 03/21/19 to 04/05/19 with sepsis, septic shock, and ARF from LE cellulitis. Additionally he was found to have a right ischial pressure ulcer. It was recommended that he go for inpatient rehab but he refused and has been discharged home. He has a caregiver approximately 6 hrs per day. Patient has a history of using Farrow Wraps for his lymphedema but these are worn out and patient has not been able to use for some time. Has not used a lymphedema pump. He presents today for physical therapy reporting a new wound on his left LE. He uses a power wheelchair with tilt in space and elevating legrests . Able to take a few steps using large -based quad cane on right. Prior Treatments and Tests Farrow wraps Current treatment in wound care for ischial pressure ulcer Wound care nurse consulted today for new wound anterior left lower leg; she dressed with bandage Treatment Goals Patient/Caregiver Goals Decrease lymphedema, improve mobility, obtain new Farrow Wraps, be able to self-manage lymphedema with assist of caregiver Prior Functional Status Baseline Function- ADL's Needs Assist Baseline Function- Mobility Needs Assist Baseline Function- Gait 5 ft with LBQC, CGA Baseline Function- Recreation/Hobbies none, reports watching TV Baseline Function- Other low activity level Current Functional Impairments (Reported) Functional Limitations- ADL's Decreased ability to transfer and perform bed mobility due to weight of legs Functional Limitations- Mobility/Gait Decreased ability to ambulate due to weight of legs Functional Limitations- Work/School disabled PT-OP-C Subjective Start: 04/25/19 14:28 Freq: Status: Active Protocol: Document 04/05/20 16:10 [facility] (Rec: 04/05/20 16:24 [facility] [id number]) OP-PT Subjective Patient Comments Patient Comments Patient reports he has now used his lymphedema pumps x 1. Brought them today for evaluation. Caregiver still reports some difficulty with toe wraps, but did yesterday. Thinks swelling possibly a little better. PT-OP-G Mobility & Gait Start: 04/25/19 14:28 Freq: Status: Active Protocol: Document 04/25/19 14:30 [facility] (Rec: 04/26/19 09:40 [facility] [id number]) OP Mobility Evaluation Bed Mobility Rolling mod assist Supine to and from Sit mod assist Transfers Sit to Stand min assist from high surface Wheelchair Management Type of Wheelchair power w/c Special Equipment elevating legrests, tilt in space, small air mattress Assessment Details Roho cushion has been ordered OP Gait Assessment Gait Gait Assistance Required: Contact Guard Assist Distance (Feet) 5 Assistive Devices Assistive Device Large Based Quad Cane Orthotic/Prosthetic Devices or Brace: No Gait Deviations General Gait Pattern Decreased Stride Length, Decreased Feet Clearance, Flexed Trunk,Wide Based Gait Factors Limiting Gait Function Factors Limiting Gait Function Decreased Strength Comments Gait Comments tends to slide left LE Stair Climbing Evaluation Comments Stair Climbing Comments unable PT-OP-K Range of Motion Start: 04/25/19 14:28 Freq: Status: Active Protocol: Document 04/25/19 14:30 [facility] (Rec: 04/26/19 09:40 [facility] [id number]) Hip Goniometric Range of Motion Hip natacha Hip ROM WFL No Hip ROM Limitations Hip ROM Limitations Muscle Weakness,Swelling Knee Goniometric Range of Motion Knee natacha Knee ROM WFL No Knee ROM Limitations Knee ROM Limitations Muscle Weakness,Swelling Ankle and Foot Goniometric Range of Motion Ankle and Foot natacha Ankle/Foot ROM WFL No Ankle and Foot ROM Limitations ROM Limitations Muscle Weakness,Swelling PT-OP-M Strength Start: 04/25/19 14:28 Freq: Status: Active Protocol: Document 04/25/19 14:30 [facility] (Rec: 04/26/19 09:40 [facility] [id number]) Hip Strength Hip Manual Muscle Testing natacha Comments patient unable to lift against gravity, requires assistance lifting left LE on/off bed Knee Strength Knee Manual Muscle Testing natacha Reason Not Measured Behavior Comments able to extend natacha knees against gravity Ankle/Foot Strength Ankle and Foot Manual Muscle Testing natacha Comments lacking full active motion due to swelling PT-OP-N Lymphedema Start: 04/25/19 14:28 Freq: Status: Active Protocol: Document 08/24/19 15:05 [facility] (Rec: 08/24/19 15:21 [facility] [id number]) Lymphedema Measurements Lower Extremity Circumference Measurements Left MT Heads 34.2 cm Medial Malleolus 37.6 cm 10 cm From Medial Malleolus 47.7 cm 20 cm From Medial Malleolus 63.5 cm 30 cm From Medial Malleolus 66.4 cm 40 cm From Medial Malleolus 66.2 cm 50 cm From Medial Malleolus 76.9 cm Right MT Heads 24.8 cm Medial Malleolus 29.4 cm 10 cm From Medial Malleolus 30 cm 20 cm From Medial Malleolus 46.2 cm 30 cm From Medial Malleolus 54.7 cm 40 cm From Medial Malleolus 54.1 cm 50 cm From Medial Malleolus 66 cm PT-OP-Q Treatments Start: 04/25/19 14:28 Freq: Status: Active Protocol: Document 04/05/20 16:10 [facility] (Rec: 04/05/20 16:24 [facility] [id number]) Therapeutic Activity Therapeutic Activity transfers Name w/c to and from mat table Reps/Minutes 2x Comments ambulated 10' min assist from caregiver sit to supine and supine to sit with max assist for left LE, min UE upper body Self-Care/Home Management Treatment Education Caregiver Education Lymphedema wrapping left LE, combination lymphedema short stretch bandages, Coban, Farrow thigh wrap Lymphedema Treatment Manual Lymphatic Drainage Location left LE Duration 20 Comments application of Lubriderm lotion to left LE for skin care. Lymphedema Wrapping Body Location left LE Materials Toe wraps, Artiflex and Comprilan, Coban for increased compression left distal foot, Farrow wrap thigh component. Other Sequential lymphedema pump ( patient's own) to left LE at 40 mm Hg( tried 50 then 45 but patient reported uncomfortable) so reduced. Patient Education Other Build up to use of lymphedema pump for 60 min daily at 50 mm Hg. Other Other Lubriderm applied to patient LE's natacha prior to Farrow wraps and toe wraps PT-OP-R Modalities Start: 04/25/19 14:28 Freq: Status: Active Protocol: Document 10/04/19 12:14 [facility] (Rec: 10/04/19 12:20 [facility] [id number]) Compression Pump Treatment Treatment Location Left Leg Pressure Amount (mmHg) (mmHG) 40 Inflation Time (Seconds) 30 Deflation Time (Seconds) 10 Treatment Duration (minutes) 30 Treatment Tolerance Good PT-OP-T Assessment and Plan Start: 04/25/19 14:28 Freq: Status: Active Protocol: Document 04/05/20 16:10 [facility] (Rec: 04/05/20 16:24 [facility] [id number]) Physical Therapy Assessment Impairments Impairments Edema,Functional Mobility, Integument,ROM Other Impairments Need for caregiver instruction Goals Three Impairment Functional mobility Short Term Goal (STG) Patient will require only min assist for transfers in/out of bed 06/21/19: some goal progress 07/28/19: Pt able to assist with right LE 10/27/19: achieved. STG Duration MET Asbestos Textile Supervisor Goal (LTG) Patient will be able to get in and out of bed independently 10/27/19: goal progress. Goal modified to min assist. 03/21/20: no progress due to Covid 19 LTG Duration 04/20/20 One Impairment lymphedema Short Term Goal (STG) Patient to be compliant with home lymphedema wrapping and sequential lymphedema exercises with the assistance of his caregiver. 06/21/19: good goal progress 07/28/19: progressing with new caregiver. 10/27/19: goal achieved 03/21/20: Caregiver having difficulty with toe wraps for lymphedema management, and with correct Farrow wrap application. Needs further instruction Asbestos Textile Supervisor Goal (LTG) Decrease and stabilize lymphedema bilateral LE's (no increase or decrease greater than 1 cm over the course of 1 week) and have patient fit with appropriate compression garments; anticipate adjustable lymphedema wraps for long-term edema management . Patient (with assistance of caregiver) to demonstrate independent edema management ability via appropriately using lymphedema pump, applying compression garments, performing sequential lymphedema exercises. 06/21/19: still awaiting lymphedema pump and approval for lymphedema wraps. Patient also still awaiting hospital bed which was ordered prior to lymphedema pump and wraps. 03/21/20: Caregiver needs further instruction as above LTG Duration 04/20/20 Assessment Summary Assessment See paper chart for circumferential measurements, small reduction at MTP, otherwise minimal significant change. Sequential pump tolerated well at 40mm Hg, pump works well. Physical Therapy Plan Frequency and Duration Frequency of Treatment 2x/wk Duration of Treatment 4 wks Plan of Care Start Date 03/21/20 Plan of Care End Date 04/20/20 Therapeutic Interventions Therapeutic Interventions Lymphedema Management,Patient/ Caregiver Education,Self-Care/ Home Management Next Visit Focus/Plan Next Note Type Treatment Note Next Visit Plan Anticipate 2 further PT appointments at this time then discharge to self management with assistance of caregiver unless further issues arise. Will consult with caregiver and wound care as needed. Then recommend follow up in 2- 3 months.
--- NOTE | 2020-04-10 16:55 | PT.OTN ---
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 (04/10/20) Obesity, unspecified (04/10/20) Hemiplegia, unspecified affecting left nondominant side (04/10/20) Lymphedema, not elsewhere classified (04/10/20) Weakness (04/10/20) Physical Therapy Treatment Note PT-OP-A Visit Information Start: 04/25/19 14:28 Freq: Status: Active Protocol: Document 04/10/20 16:37 [facility] (Rec: 04/10/20 16:55 [facility] [id number]) Out-Patient Physical Therapy Visit Information Visit Information Visit Type Treatment Note Visit Start Time 14:35 Visit Stop Time 16:05 Total Visit Minutes 90 Visit Number 28 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 of 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 0 Precautions Precautions Lymphedema natacha LE's left greater than right diagnosed 6 yrs ago DM type II Urinary incontinence Hx CVA with left sided weakness, non ambulatory Morbid obesity reactive airway disease Hypertension diverticulitis trauma wound 12/25/2014 right LE fracture left LE approx 10 yrs ago PT-OP-B Current Condition Start: 04/25/19 14:28 Freq: Status: Active Protocol: Document 04/25/19 14:30 [facility] (Rec: 04/26/19 09:40 [facility] [id number]) Current Condition History of Current Condition Onset Date 20+ years Current Complaints lymphedema bilateral LE's left greater than right History of Current Condition Patient reports 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 Since that time he has developed lymphedema, been treated for cellulitis and LE wounds. Most recently he was in the hospital from 03/21/19 to 04/05/19 with sepsis, septic shock, and ARF from LE cellulitis. Additionally he was found to have a right ischial pressure ulcer. It was recommended that he go for inpatient rehab but he refused and has been discharged home. He has a caregiver approximately 6 hrs per day. Patient has a history of using Farrow Wraps for his lymphedema but these are worn out and patient has not been able to use for some time. Has not used a lymphedema pump. He presents today for physical therapy reporting a new wound on his left LE. He uses a power wheelchair with tilt in space and elevating legrests . Able to take a few steps using large -based quad cane on right. Prior Treatments and Tests Farrow wraps Current treatment in wound care for ischial pressure ulcer Wound care nurse consulted today for new wound anterior left lower leg; she dressed with bandage Treatment Goals Patient/Caregiver Goals Decrease lymphedema, improve mobility, obtain new Farrow Wraps, be able to self-manage lymphedema with assist of caregiver Prior Functional Status Baseline Function- ADL's Needs Assist Baseline Function- Mobility Needs Assist Baseline Function- Gait 5 ft with LBQC, CGA Baseline Function- Recreation/Hobbies none, reports watching TV Baseline Function- Other low activity level Current Functional Impairments (Reported) Functional Limitations- ADL's Decreased ability to transfer and perform bed mobility due to weight of legs Functional Limitations- Mobility/Gait Decreased ability to ambulate due to weight of legs Functional Limitations- Work/School disabled PT-OP-C Subjective Start: 04/25/19 14:28 Freq: Status: Active Protocol: Document 04/10/20 16:37 [facility] (Rec: 04/10/20 16:55 [facility] [id number]) OP-PT Subjective Patient Comments Patient Comments Patient reports doing ok. Caregiver reports doesn't feel comfortable with toe wrapping for patient's right foot, running late on time to wrap the left LE after doing dressing change. PT-OP-G Mobility & Gait Start: 04/25/19 14:28 Freq: Status: Active Protocol: Document 04/25/19 14:30 [facility] (Rec: 04/26/19 09:40 [facility] [id number]) OP Mobility Evaluation Bed Mobility Rolling mod assist Supine to and from Sit mod assist Transfers Sit to Stand min assist from high surface Wheelchair Management Type of Wheelchair power w/c Special Equipment elevating legrests, tilt in space, small air mattress Assessment Details Roho cushion has been ordered OP Gait Assessment Gait Gait Assistance Required: Contact Guard Assist Distance (Feet) 5 Assistive Devices Assistive Device Large Based Quad Cane Orthotic/Prosthetic Devices or Brace: No Gait Deviations General Gait Pattern Decreased Stride Length, Decreased Feet Clearance, Flexed Trunk,Wide Based Gait Factors Limiting Gait Function Factors Limiting Gait Function Decreased Strength Comments Gait Comments tends to slide left LE Stair Climbing Evaluation Comments Stair Climbing Comments unable PT-OP-K Range of Motion Start: 04/25/19 14:28 Freq: Status: Active Protocol: Document 04/25/19 14:30 [facility] (Rec: 04/26/19 09:40 [facility] [id number]) Hip Goniometric Range of Motion Hip natacha Hip ROM WFL No Hip ROM Limitations Hip ROM Limitations Muscle Weakness,Swelling Knee Goniometric Range of Motion Knee natacha Knee ROM WFL No Knee ROM Limitations Knee ROM Limitations Muscle Weakness,Swelling Ankle and Foot Goniometric Range of Motion Ankle and Foot natacha Ankle/Foot ROM WFL No Ankle and Foot ROM Limitations ROM Limitations Muscle Weakness,Swelling PT-OP-M Strength Start: 04/25/19 14:28 Freq: Status: Active Protocol: Document 04/25/19 14:30 [facility] (Rec: 04/26/19 09:40 [facility] [id number]) Hip Strength Hip Manual Muscle Testing natacha Comments patient unable to lift against gravity, requires assistance lifting left LE on/off bed Knee Strength Knee Manual Muscle Testing natacha Reason Not Measured Behavior Comments able to extend natacha knees against gravity Ankle/Foot Strength Ankle and Foot Manual Muscle Testing natacha Comments lacking full active motion due to swelling PT-OP-N Lymphedema Start: 04/25/19 14:28 Freq: Status: Active Protocol: Document 08/24/19 15:05 [facility] (Rec: 08/24/19 15:21 [facility] [id number]) Lymphedema Measurements Lower Extremity Circumference Measurements Left MT Heads 34.2 cm Medial Malleolus 37.6 cm 10 cm From Medial Malleolus 47.7 cm 20 cm From Medial Malleolus 63.5 cm 30 cm From Medial Malleolus 66.4 cm 40 cm From Medial Malleolus 66.2 cm 50 cm From Medial Malleolus 76.9 cm Right MT Heads 24.8 cm Medial Malleolus 29.4 cm 10 cm From Medial Malleolus 30 cm 20 cm From Medial Malleolus 46.2 cm 30 cm From Medial Malleolus 54.7 cm 40 cm From Medial Malleolus 54.1 cm 50 cm From Medial Malleolus 66 cm PT-OP-Q Treatments Start: 04/25/19 14:28 Freq: Status: Active Protocol: Document 04/10/20 16:37 [facility] (Rec: 04/10/20 16:55 [facility] [id number]) Therapeutic Activity Therapeutic Activity transfers Name w/c to and from mat table Reps/Minutes 2x Comments ambulated 10' min assist from caregiver sit to supine and supine to sit with max assist for left LE, min UE upper body Self-Care/Home Management Treatment Education Caregiver Education Lymphedema wrapping left LE, combination lymphedema short stretch bandages, Coban, Farrow knee and thigh wrap. Lymphedema Treatment Manual Lymphatic Drainage Location left LE Duration 20 Comments application of Lubriderm lotion to left LE for skin care. Lymphedema Wrapping Body Location bilateral LE's Materials Artiflex and Comprilan, Coban for increased compression left distal foot, Farrow wrap thigh component. right foot toe wraps then farrow wraps Other Sequential lymphedema pump ( patient's own) to left LE at 40 mm Hg( tried 50 then 45 but patient reported uncomfortable) so reduced. Patient Education Other Importance of daily changing of bandages, skin check, rebandaging/application of Farrow wraps again stressed. Other Other Lubriderm applied to patient LE's natacha prior to Farrow wraps and toe wraps Strong recommendation to patient for short-term care facility stay for better skilled and consistent care to facilitate wound healing and lymphedema reduction. Consultation with physician regarding increased redness left LE with mile increased warmth, concern about development of cellulitis PT-OP-R Modalities Start: 04/25/19 14:28 Freq: Status: Active Protocol: Document 10/04/19 12:14 [facility] (Rec: 10/04/19 12:20 [facility] [id number]) Compression Pump Treatment Treatment Location Left Leg Pressure Amount (mmHg) (mmHG) 40 Inflation Time (Seconds) 30 Deflation Time (Seconds) 10 Treatment Duration (minutes) 30 Treatment Tolerance Good PT-OP-T Assessment and Plan Start: 04/25/19 14:28 Freq: Status: Active Protocol: Document 04/10/20 16:37 [facility] (Rec: 04/10/20 16:55 [facility] [id number]) Physical Therapy Assessment Impairments Impairments Edema,Functional Mobility, Integument,ROM Other Impairments Need for caregiver instruction Goals Three Impairment Functional mobility Short Term Goal (STG) Patient will require only min assist for transfers in/out of bed 06/21/19: some goal progress 07/28/19: Pt able to assist with right LE 10/27/19: achieved. STG Duration MET Cross Tie Maker Goal (LTG) Patient will be able to get in and out of bed independently 10/27/19: goal progress. Goal modified to min assist. 03/21/20: no progress due to Covid 19 LTG Duration 04/20/20 One Impairment lymphedema Short Term Goal (STG) Patient to be compliant with home lymphedema wrapping and sequential lymphedema exercises with the assistance of his caregiver. 06/21/19: good goal progress 07/28/19: progressing with new caregiver. 10/27/19: goal achieved 03/21/20: Caregiver having difficulty with toe wraps for lymphedema management, and with correct Farrow wrap application. Needs further instruction Skilled Nursing Goal (LTG) Decrease and stabilize lymphedema bilateral LE's (no increase or decrease greater than 1 cm over the course of 1 week) and have patient fit with appropriate compression garments; anticipate adjustable lymphedema wraps for long-term edema management . Patient (with assistance of caregiver) to demonstrate independent edema management ability via appropriately using lymphedema pump, applying compression garments, performing sequential lymphedema exercises. 06/21/19: still awaiting lymphedema pump and approval for lymphedema wraps. Patient also still awaiting hospital bed which was ordered prior to lymphedema pump and wraps. 03/21/20: Caregiver needs further instruction as above LTG Duration 04/20/20 Assessment Summary Assessment Noted increased redness left LE, consulted with Dr. Valladares who changed patient's antibiotic. No MLD today due to possible infection. Continued with caregiver education, but at this point feel patient care needs are beyond the ability of caregiver; patient needs at least short term stay in care facility, ideally long-term for best care and especially for wound care and lymphedema care. Caregiver is receptive to education, but appears overwhelmed with all this patient requires for care. Left phone message with case therapist Marty at [facility] regarding my concerns, also shared concerns with Dr. Valladares. Have previously attempted to get patient to go to a care facility and he has refused. Only 1 further PT appointment scheduled for patient at this time, reminded him and caregiver of this today. Physical Therapy Plan Frequency and Duration Frequency of Treatment 2x/wk Duration of Treatment 4 wks Plan of Care Start Date 03/21/20 Plan of Care End Date 04/20/20 Therapeutic Interventions Therapeutic Interventions Lymphedema Management,Patient/ Caregiver Education,Self-Care/ Home Management
--- NOTE | 2020-04-12 11:13 | PT.OPDS ---
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 (04/10/20) Obesity, unspecified (04/10/20) Hemiplegia, unspecified affecting left nondominant side (04/10/20) Lymphedema, not elsewhere classified (04/10/20) Weakness (04/10/20) Visit Care Team Role Provider Type Asia Mario PA-C Family Provider Non-Staff Primary Care Provider Specialty: Nursing Address: [address] [facility], [place], [address] Email: Ankush Wilburn MD Attending Provider Non-Staff Specialty: Family Practice Address: [address] [facility], [place], [address] Email: Visit Number Visit Number 28 Discharge Summary PT-OP-B Current Condition Start: 04/25/19 14:28 Freq: Status: Active Protocol: Document 04/25/19 14:30 [facility] (Rec: 04/26/19 09:40 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 Since that time he has developed lymphedema, been treated for cellulitis and LE wounds. Most recently he was in the hospital from 03/21/19 to 04/05/19 with sepsis, septic shock, and ARF from LE cellulitis. Additionally he was found to have a right ischial pressure ulcer. It was recommended that he go for inpatient rehab but he refused and has been discharged home. He has a caregiver approximately 6 hrs per day. Patient has a history of using Farrow Wraps for his lymphedema but these are worn out and patient has not been able to use for some time. Has not used a lymphedema pump. He presents today for physical therapy reporting a new wound on his left LE. He uses a power wheelchair with tilt in space and elevating legrests . Able to take a few steps using large -based quad cane on right. Prior Treatments and Tests Farrow wraps Current treatment in wound care for ischial pressure ulcer Wound care nurse consulted today for new wound anterior left lower leg; she dressed with bandage Treatment Goals Patient/Caregiver Goals Decrease lymphedema, improve mobility, obtain new Farrow Wraps, be able to self-manage lymphedema with assist of caregiver Prior Functional Status Baseline Function- ADL's Needs Assist Baseline Function- Mobility Needs Assist Baseline Function- Gait 5 ft with LBQC, CGA Baseline Function- Recreation/Hobbies none, reports watching TV Baseline Function- Other low activity level Current Functional Impairments (Reported) Functional Limitations- ADL's Decreased ability to transfer and perform bed mobility due to weight of legs Functional Limitations- Mobility/Gait Decreased ability to ambulate due to weight of legs Functional Limitations- Work/School disabled PT-OP-C Subjective Start: 04/25/19 14:28 Freq: Status: Active Protocol: Document 04/10/20 16:37 [facility] (Rec: 04/10/20 16:55 [facility] [id number]) OP-PT Subjective Patient Comments Patient Comments Patient reports doing ok. Caregiver reports doesn't feel comfortable with toe wrapping for patient's right foot, running late on time to wrap the left LE after doing dressing change. PT-OP-G Mobility & Gait Start: 04/25/19 14:28 Freq: Status: Active Protocol: Document 04/25/19 14:30 [facility] (Rec: 04/26/19 09:40 [facility] [id number]) OP Mobility Evaluation Bed Mobility Rolling mod assist Supine to and from Sit mod assist Transfers Sit to Stand min assist from high surface Wheelchair Management Type of Wheelchair power w/c Special Equipment elevating legrests, tilt in space, small air mattress Assessment Details Roho cushion has been ordered OP Gait Assessment Gait Gait Assistance Required: Contact Guard Assist Distance (Feet) 5 Assistive Devices Assistive Device Large Based Quad Cane Orthotic/Prosthetic Devices or Brace: No Gait Deviations General Gait Pattern Decreased Stride Length, Decreased Feet Clearance, Flexed Trunk,Wide Based Gait Factors Limiting Gait Function Factors Limiting Gait Function Decreased Strength Comments Gait Comments tends to slide left LE Stair Climbing Evaluation Comments Stair Climbing Comments unable PT-OP-K Range of Motion Start: 04/25/19 14:28 Freq: Status: Active Protocol: Document 04/25/19 14:30 [facility] (Rec: 04/26/19 09:40 [facility] [id number]) Hip Goniometric Range of Motion Hip natacha Hip ROM WFL No Hip ROM Limitations Hip ROM Limitations Muscle Weakness,Swelling Knee Goniometric Range of Motion Knee natacha Knee ROM WFL No Knee ROM Limitations Knee ROM Limitations Muscle Weakness,Swelling Ankle and Foot Goniometric Range of Motion Ankle and Foot natacha Ankle/Foot ROM WFL No Ankle and Foot ROM Limitations ROM Limitations Muscle Weakness,Swelling PT-OP-M Strength Start: 04/25/19 14:28 Freq: Status: Active Protocol: Document 04/25/19 14:30 [facility] (Rec: 04/26/19 09:40 [facility] [id number]) Hip Strength Hip Manual Muscle Testing natacha Comments patient unable to lift against gravity, requires assistance lifting left LE on/off bed Knee Strength Knee Manual Muscle Testing natacha Reason Not Measured Behavior Comments able to extend natacha knees against gravity Ankle/Foot Strength Ankle and Foot Manual Muscle Testing natacha Comments lacking full active motion due to swelling PT-OP-N Lymphedema Start: 04/25/19 14:28 Freq: Status: Active Protocol: Document 08/24/19 15:05 [facility] (Rec: 08/24/19 15:21 [facility] [id number]) Lymphedema Measurements Lower Extremity Circumference Measurements Left MT Heads 34.2 cm Medial Malleolus 37.6 cm 10 cm From Medial Malleolus 47.7 cm 20 cm From Medial Malleolus 63.5 cm 30 cm From Medial Malleolus 66.4 cm 40 cm From Medial Malleolus 66.2 cm 50 cm From Medial Malleolus 76.9 cm Right MT Heads 24.8 cm Medial Malleolus 29.4 cm 10 cm From Medial Malleolus 30 cm 20 cm From Medial Malleolus 46.2 cm 30 cm From Medial Malleolus 54.7 cm 40 cm From Medial Malleolus 54.1 cm 50 cm From Medial Malleolus 66 cm PT-OP-T Assessment and Plan Start: 04/25/19 14:28 Freq: Status: Active Protocol: Document 04/12/20 11:06 [facility] (Rec: 04/12/20 11:12 [facility] [id number]) Physical Therapy Plan Discharge Physical Therapy Discharge Reasons [place] in Progress Discharge Comments Patient lymphedema care needs are beyond ability of home energy inspector to provide. Needs inpatient care at this time.
== END 2020-05-24 09:03 ==
LOC: PHYS 14:30
PROVIDERS: Family Provider Physician Assistant; PCP Physician Assistant; Visit Provider Family Medicine
DX: I89.0 Lymphedema, not elsewhere classified (principal); R53.1 Weakness; E66.9 Obesity, unspecified; G81.94 Hemiplegia, unspecified affecting left nondominant side; E08.628 Diabetes mellitus due to underlying condition with other skin complications
CPT/HCPCS: 97016; 97110; 97140; 97163; 97530; 97535

== ENCOUNTER → 2020-04-17 16:20 | Outpatient (CLI) | payer MEDICARE, MEDICAID, OTHER, SELFPAY | PROVIDERS: Family Provider Physician Assistant; PCP Nurse Practitioner Family; Referring Provider Nurse Practitioner Family; Visit Provider Family Medicine | DX: I89.0 Lymphedema, not elsewhere classified (principal); L97.521 Non-pressure chronic ulcer of other part of left foot limited to breakdown of skin; I87.2 Venous insufficiency (chronic) (peripheral); L08.9 Local infection of the skin and subcutaneous tissue, unspecified; Z79.2 Long term (current) use of antibiotics; L03.116 Cellulitis of left lower limb | CPT/HCPCS: 99212; 99214 ==

== ENCOUNTER → 2020-05-01 13:49 | Outpatient (CLI) | payer MEDICARE, MEDICAID, OTHER, SELFPAY | PROVIDERS: Family Provider Physician Assistant; PCP Family Medicine; Referring Provider Family Medicine; Visit Provider Family Medicine | DX: I89.0 Lymphedema, not elsewhere classified (principal); L97.521 Non-pressure chronic ulcer of other part of left foot limited to breakdown of skin; I87.2 Venous insufficiency (chronic) (peripheral); L08.9 Local infection of the skin and subcutaneous tissue, unspecified; Z79.2 Long term (current) use of antibiotics | CPT/HCPCS: 99213; 99214 ==

== ENCOUNTER → 2020-06-06 12:57 | Outpatient (CLI) | payer MEDICARE, MEDICAID, OTHER, SELFPAY | PROVIDERS: Family Provider Physician Assistant; PCP Family Medicine; Referring Provider Family Medicine; Visit Provider Family Medicine | DX: I89.0 Lymphedema, not elsewhere classified (principal); L97.521 Non-pressure chronic ulcer of other part of left foot limited to breakdown of skin; I87.2 Venous insufficiency (chronic) (peripheral); L08.9 Local infection of the skin and subcutaneous tissue, unspecified | CPT/HCPCS: 87070; 87075; 87077; 87185; 87186; 87205; 99213 ==

== ENCOUNTER → 2020-06-20 13:15 | Outpatient (CLI) | payer MEDICARE, MEDICAID, OTHER, SELFPAY | PROVIDERS: Family Provider Physician Assistant; PCP Family Medicine; Referring Provider Family Medicine; Visit Provider Family Medicine | DX: I89.0 Lymphedema, not elsewhere classified (principal); L97.521 Non-pressure chronic ulcer of other part of left foot limited to breakdown of skin; I87.2 Venous insufficiency (chronic) (peripheral); L08.9 Local infection of the skin and subcutaneous tissue, unspecified; Z91.19 Patient's noncompliance with other medical treatment and regimen; Z74.2 Need for assistance at home and no other household member able to render care | CPT/HCPCS: 29581; 99214 ==

== ENCOUNTER → 2020-06-22 13:20 | Outpatient (CLI) | payer MEDICARE, MEDICAID, OTHER, SELFPAY | PROVIDERS: Family Provider Physician Assistant; PCP Family Medicine; Referring Provider Family Medicine; Visit Provider Family Medicine | DX: I89.0 Lymphedema, not elsewhere classified (principal); L97.521 Non-pressure chronic ulcer of other part of left foot limited to breakdown of skin | CPT/HCPCS: 29581 ==

== ENCOUNTER → 2020-07-17 15:28 | Outpatient (CLI) | payer MEDICARE, MEDICAID, OTHER, SELFPAY | PROVIDERS: Family Provider Physician Assistant; PCP Family Medicine; Referring Provider Family Medicine; Visit Provider Family Medicine | DX: I89.0 Lymphedema, not elsewhere classified (principal); L97.521 Non-pressure chronic ulcer of other part of left foot limited to breakdown of skin | CPT/HCPCS: 29581 ==

== ENCOUNTER → 2020-07-31 15:02 | Outpatient (CLI) | payer MEDICARE, MEDICAID, OTHER, SELFPAY | PROVIDERS: Family Provider Physician Assistant; PCP Family Medicine; Referring Provider Family Medicine; Visit Provider Family Medicine | DX: I89.0 Lymphedema, not elsewhere classified (principal); I87.2 Venous insufficiency (chronic) (peripheral); S81.812A Laceration without foreign body, left lower leg, initial encounter; L97.521 Non-pressure chronic ulcer of other part of left foot limited to breakdown of skin; L08.9 Local infection of the skin and subcutaneous tissue, unspecified; Z91.19 Patient's noncompliance with other medical treatment and regimen; E66.01 Morbid (severe) obesity due to excess calories | CPT/HCPCS: 11042; 99213; 99214 ==

== ENCOUNTER → 2020-08-29 15:27 | Outpatient (CLI) | payer MEDICARE, MEDICAID, OTHER, SELFPAY | PROVIDERS: Family Provider Physician Assistant; PCP Family Medicine; Referring Provider Family Medicine; Visit Provider Family Medicine | DX: I89.0 Lymphedema, not elsewhere classified (principal); L97.521 Non-pressure chronic ulcer of other part of left foot limited to breakdown of skin; S81.812A Laceration without foreign body, left lower leg, initial encounter; I87.2 Venous insufficiency (chronic) (peripheral); L08.9 Local infection of the skin and subcutaneous tissue, unspecified; Z91.19 Patient's noncompliance with other medical treatment and regimen | CPT/HCPCS: 11042 ==

== ENCOUNTER → 2020-10-03 14:30 | Outpatient (CLI) | payer MEDICARE, MEDICAID, SELFPAY | PROVIDERS: PCP Family Medicine; Referring Provider Family Medicine; Visit Provider Family Medicine | DX: I89.0 Lymphedema, not elsewhere classified (principal); I87.2 Venous insufficiency (chronic) (peripheral); L97.521 Non-pressure chronic ulcer of other part of left foot limited to breakdown of skin; S81.832A Puncture wound without foreign body, left lower leg, initial encounter; L08.9 Local infection of the skin and subcutaneous tissue, unspecified; Z91.19 Patient's noncompliance with other medical treatment and regimen; Z74.2 Need for assistance at home and no other household member able to render care | CPT/HCPCS: 87070; 87075; 87077; 87186; 87205; 99214 ==

== ENCOUNTER → 2020-10-09 11:12 | Outpatient (CLI) | payer MEDICARE, MEDICAID, SELFPAY | PROVIDERS: PCP Family Medicine; Referring Provider Family Medicine; Visit Provider Family Medicine | DX: I89.0 Lymphedema, not elsewhere classified (principal); S81.812A Laceration without foreign body, left lower leg, initial encounter | CPT/HCPCS: 29581 ==

== ENCOUNTER → 2020-10-16 13:56 | Outpatient (CLI) | payer MEDICARE, MEDICAID, SELFPAY | PROVIDERS: PCP Family Medicine; Referring Provider Family Medicine; Visit Provider Family Medicine | DX: I89.0 Lymphedema, not elsewhere classified (principal); L97.521 Non-pressure chronic ulcer of other part of left foot limited to breakdown of skin; I87.2 Venous insufficiency (chronic) (peripheral); E11.622 Type 2 diabetes mellitus with other skin ulcer; T81.31XA Disruption of external operation (surgical) wound, not elsewhere classified, initial encounter; L08.9 Local infection of the skin and subcutaneous tissue, unspecified; Z91.19 Patient's noncompliance with other medical treatment and regimen; L03.032 Cellulitis of left toe; T36.8X5A Adverse effect of other systemic antibiotics, initial encounter; E11.628 Type 2 diabetes mellitus with other skin complications | CPT/HCPCS: 97597; 99214 ==

== ENCOUNTER → 2020-10-19 11:10 | Outpatient (CLI) | payer MEDICARE, MEDICAID, SELFPAY | PROVIDERS: PCP Family Medicine; Referring Provider Family Medicine; Visit Provider Family Medicine | DX: I89.0 Lymphedema, not elsewhere classified (principal); S81.802A Unspecified open wound, left lower leg, initial encounter | CPT/HCPCS: 29581 ==

== ENCOUNTER → 2020-10-23 10:58 | Outpatient (CLI) | payer MEDICARE, MEDICAID, SELFPAY | PROVIDERS: PCP Family Medicine; Referring Provider Family Medicine; Visit Provider Family Medicine | DX: I89.0 Lymphedema, not elsewhere classified (principal); L97.521 Non-pressure chronic ulcer of other part of left foot limited to breakdown of skin; L08.9 Local infection of the skin and subcutaneous tissue, unspecified | CPT/HCPCS: 11042; 11045 ==

== ENCOUNTER → 2020-10-24 15:45 | Outpatient (CLI) | payer MEDICARE, MEDICAID, SELFPAY | PROVIDERS: PCP Family Medicine; Referring Provider Family Medicine; Visit Provider Family Medicine | DX: S91.302A Unspecified open wound, left foot, initial encounter (principal); I89.0 Lymphedema, not elsewhere classified; R60.0 Localized edema | CPT/HCPCS: 29581 ==

== ENCOUNTER → 2020-10-25 15:04 | Outpatient (CLI) | payer MEDICARE, MEDICAID, SELFPAY | PROVIDERS: PCP Family Medicine; Referring Provider Family Medicine; Visit Provider Family Medicine | DX: S91.302A Unspecified open wound, left foot, initial encounter (principal); I89.0 Lymphedema, not elsewhere classified; R60.0 Localized edema | CPT/HCPCS: 29581 ==

== ENCOUNTER → 2020-10-30 15:04 | Outpatient (CLI) | payer MEDICARE, MEDICAID, SELFPAY | PROVIDERS: PCP Family Medicine; Referring Provider Family Medicine; Visit Provider Family Medicine | DX: I89.0 Lymphedema, not elsewhere classified (principal); R60.0 Localized edema | CPT/HCPCS: 29581 ==

== ENCOUNTER → 2020-11-01 15:34 | Outpatient (CLI) | payer MEDICARE, MEDICAID, SELFPAY | PROVIDERS: PCP Family Medicine; Referring Provider Family Medicine; Visit Provider Family Medicine | DX: I89.0 Lymphedema, not elsewhere classified (principal); L97.521 Non-pressure chronic ulcer of other part of left foot limited to breakdown of skin | CPT/HCPCS: 29581 ==

== ENCOUNTER → 2020-11-06 14:55 | Outpatient (CLI) | payer MEDICARE, MEDICAID, SELFPAY | PROVIDERS: PCP Family Medicine; Referring Provider Family Medicine; Visit Provider Family Medicine | DX: I89.0 Lymphedema, not elsewhere classified (principal); L97.521 Non-pressure chronic ulcer of other part of left foot limited to breakdown of skin | CPT/HCPCS: 29581 ==

== ENCOUNTER 2020-11-08 14:30 | Outpatient (RCR) | payer MEDICARE, MEDICAID, SELFPAY ==
--- NOTE | 2020-10-22 12:58 | PT.OPPOC ---
Physical, Occupational & Speech Therapy At [facility] Current Diagnoses Morbid (severe) obesity due to excess calories (10/23/20) Hemiplegia, unspecified affecting left nondominant side (10/23/20) Lymphedema, not elsewhere classified (10/23/20) Local infection of the skin and subcutaneous tissue, unspecified (10/23/20) Non-pressure chronic ulcer of other part of left foot with unspecified severity (10/23/20) Weakness (10/23/20) Visit Care Team Role Provider Type Rayray Laird MD Attending Provider Non-Staff Primary Care Provider Referring Provider Specialty: [facility] Address: [address] [place] [address], [facility] Email: Plan Of Care PT-OP-T Assessment and Plan Start: 10/22/20 09:00 Freq: Status: Active Protocol: Document 10/22/20 12:58 [facility] (Rec: 10/23/20 08:57 [facility] [id number]) Physical Therapy Assessment Rehab Potential Rehabilitation Potential Fair Evaluation Complexity Number of Personal Factors/Comorbidities 3 or More Number of Body Systems Impaired 4 or More Clinical Presentation at Evaluation Unstable Impairments Impairments Edema,Functional Mobility, Integument Other Concerns Fall Risk high fall risk Barriers to Rehabilitation Poor ability to follow plan of care at home Goals Three Impairment Functional mobility; requires max assist for transfers in and out of bed Short Term Goal (STG) Patient will require only mod assist for transfers in and out of bed STG Duration 12/02/20 [facility] Goal (LTG) Patient will be able to get in and out of bed with min assist LTG Duration 01/21/21 Two Impairment functional weakness, unable to ambulate Short Term Goal (STG) patient will be able to ambulate 10' with mod assist for purposes of ADL's STG Duration 12/02/20 [place] Goal (LTG) Patient will be able to ambulate 25' with mod assist for short distances household ambulation, assistance with edema reduction, and quality of life LTG Duration 01/21/21 One Impairment lymphedema [place] Goal (LTG) Decrease and stabilize lymphedema bilateral LE's (no increase or decrease greater than 1 cm over the course of 1 week) and have patient obtain new compression alternative wraps for bilateral LE's. Patient to have adequate assistance in the home to help with donning and doffing compression and using his compression pumps or will work with field case manager to facilitate better care situation for this patient. LTG Duration 01/21/21 Assessment Summary Assessment Patient presents with exacerbation of lymphedema in LE's left greater than right with draining wound left LE ( hemiparetic side). Would benefit from PT for lymphedema management, though patient's ability to follow-through in the home is minimal; his care not adequately able to be met in the home with [facility]-provided caregivers. Will be talking with his field case manager when obtain contact information from patient. He may need new compression alternative wraps and states he will contact his physician for referral and field case manager and vendor to order new ones. Will benefit from PT for lymphedema management to include skin care, MLD, therapeutic exercises, use of lymphedema pump, compression wrapping and /or application of compression alternatives. Lymphedema reduction will play a big factor in his wounds healing and we will be working closely with the wound care department. A big factor in his treatment is the ability to follow-through in the home so if caregivers are unable to don his compression alternative wraps uncertain about progress we will need to work with field case manager to see if alternative living situation can be found for this patient so he can receive the care he needs. One other factor is patient's inability to elevate his legs, and he reports his wheelchair hasn't been working well to allow him to elevate his legs; needs to have repaired or consider new wheelchair. Physical Therapy Plan Frequency and Duration Frequency of Treatment 24 visits Duration of Treatment 12 weeks Plan of Care Start Date 10/22/20 Plan of Care End Date 01/21/21 Therapeutic Interventions Therapeutic Interventions Home Exercise Program, Lymphedema Management,Patient/ Caregiver Education,Self-Care/ Home Management,Therapeutic Activities,Therapeutic Exercises Next Visit Focus/Plan Next Note Type Treatment Note Next Visit Plan Initiate lymphedema management to include circumferential measurements, skin care, MLD, possible use of lymphedema pump, compression bandaging vs compression alternatives depending on tolerance and fit . Plan of Care Dates Plan of Care Start Date 10/22/20 Plan of Care End Date 01/21/21 Electronically Signed by: Lamar Keith, PT 10/23/20 6027 Please Sign and Return: I have reviewed this Plan of Care and certify that the skilled therapy services above are required to meet the patient?s needs. Physician Signature Date Printed Name and Credentials Clinical Instructor Signature Printed Name and Credentials
--- NOTE | 2020-10-22 12:58 | PT.OIE ---
Current Diagnoses Morbid (severe) obesity due to excess calories (10/23/20) Hemiplegia, unspecified affecting left nondominant side (10/23/20) Lymphedema, not elsewhere classified (10/23/20) Local infection of the skin and subcutaneous tissue, unspecified (10/23/20) Non-pressure chronic ulcer of other part of left foot with unspecified severity (10/23/20) Weakness (10/23/20) Past Medical History (Last Reviewed 06/27/20 @ 13:05 by Dago Wayne MD) Asthma Chronic acquired lymphedema HTN (hypertension) Hyperlipidemia Morbid obesity with body mass index (BMI) of 40.0 to 49.9 Obstructive sleep apnea (04/03/20) Visit Care Team Role Provider Type Rayray Laird MD Attending Provider Non-Staff Primary Care Provider Referring Provider Specialty: [facility] Address: [address] [place] [address] Email: Physical Therapy Initial Evaluation PT-OP-A Visit Information Start: 10/22/20 09:00 Freq: Status: Active Protocol: Document 10/22/20 12:58 [facility] (Rec: 10/22/20 13:17 [facility] [id number]) Out-Patient Physical Therapy Visit Information Visit Information Visit Type Initial Evaluation Visit Start Time 13:00 Visit Stop Time 14:25 Total Visit Minutes 85 Visit Number 1 Evaluation Information Evaluation Date 10/22/20 Precautions Precautions decreased sensation left LE, no active movement left LE, caution with compression PT-OP-B Current Condition Start: 10/22/20 09:00 Freq: Status: Active Protocol: Document 10/22/20 12:58 [facility] (Rec: 10/22/20 13:17 [facility] [id number]) Current Condition History of Current Condition Onset Date 1994 Current Complaints worsening lymphedema left LE greater than right History of Current Condition Patient referred to PT due to worsening lymphedema bilateral LE's left >right by wound care physician. 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 Patient lives alone and is unable to self- bandage or apply compression alternative wraps due to hemiparesis left UE. He has caregivers daily provided by [facility] but caregivers are not trained or allowed to provide wound care or wrap his LE's per his and caregiver's report ; outside caregivers scope of practice. He was previously seen in PT for lymphedema management including MLD, compression wrapping, and lymphedema exercises and was assisted to obtain new compression alternatives. Was discharged from PT approximately 1 year ago due to plateau in progress and his needs being beyond what could be provided in the home; PT and physician had recommended care facility placement for patient to get needed care, patient reports he was willing but couldn't get placement due to pandemic. No current family caseworker, PT will need to talk with interim family caseworker Greer Haney when patient provides contact information. Currently using Compression alternatives on right, going to wound care for left LE, was wrapped with Coban at wound care last session due to left compression alternative wraps at home in process of being washed. States not using his pumps at home because caregivers not allowed to apply them and not able to don . Reports sacral decubiti healed since last seen in PT. Has caregivers who provide housework, bathing, cooking, mobility assistance. As above patient reports caregiver not allowed to assist with any wound care or wrapping of his LE's. (caregivers Gulshan, Jacqueline, Lilliana). States he needs new compression wraps, he expressed willingness to call vendor and get prescription from his doctor. Patient also reports he will get PT the contact information for family caseworker. Complications for any new treatment for lymphedema are his difficulty adhering to treatment plan. Prior Treatments and Tests Prior treatment for LE wounds left LE, sacral decubiti, lymphedema. 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 Treatment Goals Patient/Caregiver Goals Decrease the swelling in his legs. Prior Functional Status Baseline Function- ADL's Needs Assist Baseline Function- Mobility Needs Assist Baseline Function- Gait Able to ambulate up to 10' Baseline Function- Work/School unable Baseline Function- Recreation/Hobbies TV especially baseball; team is [employer] Current Functional Impairments (Reported) Functional Limitations- ADL's needs assist Functional Limitations- Mobility/Gait limited to shuffling steps during transfers. Functional Limitations- Work/School unable Functional Limitations- Recreation/ watches TV Hobbies Functional Limitations- Other unable to provide self-care for lymphedema management Personal Factors Other Personal Factors That May Effect reluctance previously to be Therapy/Recovery placed in care facility despite multiple recommendations, though patient reports after last discharge had been open to placement but wasn't able to be due to Covid-19. PT-OP-G Mobility & Gait Start: 10/22/20 09:00 Freq: Status: Active Protocol: Document 10/22/20 12:58 [facility] (Rec: 10/23/20 14:33 [facility] [id number]) OP Mobility Evaluation Bed Mobility Rolling max assist Supine to and from Sit max assist Transfers Sit to Stand mod to max assist depending on height of surface Bed to Chair Transfers mod assist with bed elevated Car Transfers stays in wheelchair Floor Transfers unable Wheelchair Management Type of Wheelchair power Assessment Details able to drive w/c independently with candy stick and controls on right side OP Gait Assessment Gait Gait Assistance Required: Moderate Assistance Distance (Feet) 2 Able to Maintain Weight Bearing Status Yes During Gait Assistive Devices Assistive Device Gait Belt Comments Gait Comments patient holds onto caregiver PT-OP-J Posture/Palpation/Skin Start: 10/22/20 09:00 Freq: Status: Active Protocol: Document 10/22/20 12:58 [facility] (Rec: 10/23/20 12:58 [facility] [id number]) Skin Assessment Edema Assessment left leg Edema Appearance Weeping Comments severe lymphedema, elephentiasis left LE with multiple pappillomas, unable to see toes due to extent of lymphedema and fibrotic changes (see photos in chart). Skin severely fibrotic left LE, moderately right LE. PT-OP-N Lymphedema Start: 10/22/20 09:00 Freq: Status: Active Protocol: Document 10/22/20 12:58 [facility] (Rec: 10/23/20 14:38 [facility] [id number]) Lymphedema Measurements Lower Extremity Circumference Measurements Left MT Heads 39.7 cm Mid-foot 42.7 cm Medial Malleolus 38.1 cm 20 cm From Medial Malleolus 61.4 cm 30 cm From Medial Malleolus 66.8 cm 40 cm From Medial Malleolus 67.5 cm 50 cm From Medial Malleolus 71.9 cm 60 cm From Medial Malleolus 80.6 cm - measurements are from bottom of heel, ankle at 10 cm Right MT Heads 29.7 cm Mid-foot 31.4 cm Medial Malleolus 28.1 cm 20 cm From Medial Malleolus 38.4 cm 30 cm From Medial Malleolus 55 cm 40 cm From Medial Malleolus 60.6 cm 50 cm From Medial Malleolus 61.5 cm 60 cm From Medial Malleolus 73.5 cm - measurements are from bottom of heel, ankles at 10 cm PT-OP-Q Treatments Start: 10/22/20 09:00 Freq: Status: Active Protocol: Document 10/22/20 12:58 [facility] (Rec: 10/23/20 14:41 [facility] [id number]) Therapeutic Activity Therapeutic Activity transfers Name w/c to and from mat table Reps/Minutes 2x Comments ambulated 2' mod assist from caregiver sit to stand x 5 from elevated mat table used in chair mod for ease of getting on and off Lymphedema Treatment Lymphedema Wrapping Body Location bilateral LE's Materials Right: Tubigrip F toes to ankle, G toes to above ankle, H ankle to knee. Tubigrip covered by Farrow wraps foot and lower leg Left: assisted wound care with positioning of patient for wound dressing application, covered by comfort Coban. Stretch bandage then applied to patient's left foot, and Farrow wrap applied lower leg Patient Education Other leave all compression on overnight if possible. Returns to PT tomorrow PT-OP-T Assessment and Plan Start: 10/22/20 09:00 Freq: Status: Active Protocol: Document 10/22/20 12:58 [facility] (Rec: 10/23/20 08:57 [facility] [id number]) Physical Therapy Assessment Rehab Potential Rehabilitation Potential Fair Evaluation Complexity Number of Personal Factors/Comorbidities 3 or More Number of Body Systems Impaired 4 or More Clinical Presentation at Evaluation Unstable Impairments Impairments Edema,Functional Mobility, Integument Other Concerns Fall Risk high fall risk Barriers to Rehabilitation Poor ability to follow plan of care at home Goals Three Impairment Functional mobility; requires max assist for transfers in and out of bed Short Term Goal (STG) Patient will require only mod assist for transfers in and out of bed STG Duration 12/02/20 Skilled Nursing Goal (LTG) Patient will be able to get in and out of bed with min assist LTG Duration 01/21/21 Two Impairment functional weakness, unable to ambulate Short Term Goal (STG) patient will be able to ambulate 10' with mod assist for purposes of ADL's STG Duration 12/02/20 [place] Goal (LTG) Patient will be able to ambulate 25' with mod assist for short distances household ambulation, assistance with edema reduction, and quality of life LTG Duration 01/21/21 One Impairment lymphedema Skilled Nursing Goal (LTG) Decrease and stabilize lymphedema bilateral LE's (no increase or decrease greater than 1 cm over the course of 1 week) and have patient obtain new compression alternative wraps for bilateral LE's. Patient to have adequate assistance in the home to help with donning and doffing compression and using his compression pumps or will work with family caseworker to facilitate better care situation for this patient. LTG Duration 01/21/21 Assessment Summary Assessment Patient presents with exacerbation of lymphedema in LE's left greater than right with draining wound left LE ( hemiparetic side). Would benefit from PT for lymphedema management, though patient's ability to follow-through in the home is minimal; his care not adequately able to be met in the home with [facility]-provided caregivers. Will be talking with his family caseworker when obtain contact information from patient. He may need new compression alternative wraps and states he will contact his physician for referral and family caseworker and vendor to order new ones. Will benefit from PT for lymphedema management to include skin care, MLD, therapeutic exercises, use of lymphedema pump, compression wrapping and /or application of compression alternatives. Lymphedema reduction will play a big factor in his wounds healing and we will be working closely with the wound care department. A big factor in his treatment is the ability to follow-through in the home so if caregivers are unable to don his compression alternative wraps uncertain about progress we will need to work with family caseworker to see if alternative living situation can be found for this patient so he can receive the care he needs. One other factor is patient's inability to elevate his legs, and he reports his wheelchair hasn't been working well to allow him to elevate his legs; needs to have repaired or consider new wheelchair. Physical Therapy Plan Frequency and Duration Frequency of Treatment 24 visits Duration of Treatment 12 weeks Plan of Care Start Date 10/22/20 Plan of Care End Date 01/21/21 Therapeutic Interventions Therapeutic Interventions Home Exercise Program, Lymphedema Management,Patient/ Caregiver Education,Self-Care/ Home Management,Therapeutic Activities,Therapeutic Exercises Next Visit Focus/Plan Next Note Type Treatment Note Next Visit Plan Initiate lymphedema management to include circumferential measurements, skin care, MLD, possible use of lymphedema pump, compression bandaging vs compression alternatives depending on tolerance and fit .
--- NOTE | 2020-10-23 14:56 | PT.OTN ---
Current Diagnoses Morbid (severe) obesity due to excess calories (10/23/20) Hemiplegia, unspecified affecting left nondominant side (10/23/20) Lymphedema, not elsewhere classified (10/23/20) Local infection of the skin and subcutaneous tissue, unspecified (10/23/20) Non-pressure chronic ulcer of other part of left foot with unspecified severity (10/23/20) Weakness (10/23/20) Physical Therapy Treatment Note PT-OP-A Visit Information Start: 10/22/20 09:00 Freq: Status: Active Protocol: Document 10/23/20 14:46 [facility] (Rec: 10/23/20 14:54 [facility] [id number]) Out-Patient Physical Therapy Visit Information Visit Information Visit Type Treatment Note Visit Start Time 13:00 Visit Stop Time 14:25 Total Visit Minutes 85 Visit Number 2 Evaluation Information Evaluation Date 10/22/20 Precautions Precautions decreased sensation left LE, no active movement left LE, caution with compression PT-OP-B Current Condition Start: 10/22/20 09:00 Freq: Status: Active Protocol: Document 10/23/20 14:46 [facility] (Rec: 10/23/20 14:54 [facility] [id number]) Current Condition History of Current Condition Onset Date 1994 Current Complaints worsening lymphedema left LE greater than right History of Current Condition Patient referred to PT due to worsening lymphedema bilateral LE's left >right by wound care physician. 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 Patient lives alone and is unable to self- bandage or apply compression alternative wraps due to hemiparesis left UE. He has caregivers daily provided by [facility] but caregivers are not trained or allowed to provide wound care or wrap his LE's per his and caregiver's report ; outside caregivers scope of practice. He was previously seen in PT for lymphedema management including MLD, compression wrapping, and lymphedema exercises and was assisted to obtain new compression alternatives. Was discharged from PT approximately 1 year ago due to plateau in progress and his needs being beyond what could be provided in the home; PT and physician had recommended care facility placement for patient to get needed care, patient reports he was willing but couldn't get placement due to pandemic. No current top case assembler, PT will need to talk with interim top case assembler Greer Haney when patient provides contact information. Currently using Compression alternatives on right, going to wound care for left LE, was wrapped with Coban at wound care last session due to left compression alternative wraps at home in process of being washed. States not using his pumps at home because caregivers not allowed to apply them and not able to don . Reports sacral decubiti healed since last seen in PT. Has caregivers who provide housework, bathing, cooking, mobility assistance. As above patient reports caregiver not allowed to assist with any wound care or wrapping of his LE's. (caregivers Gulshan, Jacqueline, Lilliana). States he needs new compression wraps, he expressed willingness to call vendor and get prescription from his doctor. Patient also reports he will get PT the contact information for top case assembler. Complications for any new treatment for lymphedema are his difficulty adhering to treatment plan. Prior Treatments and Tests Prior treatment for LE wounds left LE, sacral decubiti, lymphedema. 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 PT-OP-C Subjective Start: 10/22/20 09:00 Freq: Status: Active Protocol: Document 10/23/20 14:46 [facility] (Rec: 10/23/20 14:54 [facility] [id number]) OP-PT Subjective Patient Comments Patient Comments No new c/o, wore compression all night as instructed. Doesn't have his caregiver's information available yet. Caregiver Gulshan with patient for PT session PT-OP-G Mobility & Gait Start: 10/22/20 09:00 Freq: Status: Active Protocol: Document 10/22/20 12:58 [facility] (Rec: 10/23/20 14:33 [facility] [id number]) OP Mobility Evaluation Bed Mobility Rolling max assist Supine to and from Sit max assist Transfers Sit to Stand mod to max assist depending on height of surface Bed to Chair Transfers mod assist with bed elevated Car Transfers stays in wheelchair Floor Transfers unable Wheelchair Management Type of Wheelchair power Assessment Details able to drive w/c independently with candy stick and controls on right side OP Gait Assessment Gait Gait Assistance Required: Moderate Assistance Distance (Feet) 2 Able to Maintain Weight Bearing Status Yes During Gait Assistive Devices Assistive Device Gait Belt Comments Gait Comments patient holds onto caregiver PT-OP-J Posture/Palpation/Skin Start: 10/22/20 09:00 Freq: Status: Active Protocol: Document 10/22/20 12:58 [facility] (Rec: 10/23/20 12:58 [facility] [id number]) Skin Assessment Edema Assessment left leg Edema Appearance Weeping Comments severe lymphedema, elephentiasis left LE with multiple pappillomas, unable to see toes due to extent of lymphedema and fibrotic changes (see photos in chart). Skin severely fibrotic left LE, moderately right LE. PT-OP-N Lymphedema Start: 10/22/20 09:00 Freq: Status: Active Protocol: Document 10/23/20 14:46 [facility] (Rec: 10/23/20 14:54 [facility] [id number]) Lymphedema Measurements Lower Extremity Circumference Measurements Right MT Heads 28.5 cm Mid-foot 30 cm Medial Malleolus 28.7 cm 20 cm From Medial Malleolus 37.5 cm 30 cm From Medial Malleolus 48.9 cm 40 cm From Medial Malleolus 58.5 cm 50 cm From Medial Malleolus 62.5 cm 60 cm From Medial Malleolus 71.4 cm Knee Joint 56.6 cm Comments Lymphedema Comments unable to measure left today due to time constraints; need for wound dressing application prior to patient's transportation PT-OP-Q Treatments Start: 10/22/20 09:00 Freq: Status: Active Protocol: Document 10/23/20 14:46 [facility] (Rec: 10/23/20 14:54 [facility] [id number]) Therapeutic Exercises Supine Exercises abdominal breathing Reps/Minutes 5x2 Therapeutic Activity Therapeutic Activity transfers Name w/c to and from mat table Reps/Minutes 2x Comments ambulated 2' mod assist from caregiver sit to stand x 3 from elevated mat table used in chair mod for ease of getting on and off Lymphedema Treatment Lymphedema Wrapping Body Location bilateral LE's Materials Right: Tubigrip F toes to ankle, G toes to above ankle, H ankle to knee. Tubigrip covered by Farrow wraps foot and lower leg Left: assisted wound care with positioning of patient for wound dressing application, covered by comfort Coban. Stretch bandage then applied to patient's left foot, and Farrow wrap applied lower leg Other Other sequential pump left LE x 35 min PT-OP-R Modalities Start: 10/22/20 09:00 Freq: Status: Active Protocol: Document 10/23/20 14:46 [facility] (Rec: 10/23/20 14:55 [facility] [id number]) Compression Pump Treatment Treatment Location Left Leg Pressure Amount (mmHg) (mmHG) 50 Inflation Time (Seconds) 30 Deflation Time (Seconds) 10 Treatment Duration (minutes) 35 Treatment Tolerance Good PT-OP-T Assessment and Plan Start: 10/22/20 09:00 Freq: Status: Active Protocol: Document 10/23/20 14:46 [facility] (Rec: 10/23/20 14:54 [facility] [id number]) Physical Therapy Assessment Goals Three Impairment Functional mobility; requires max assist for transfers in and out of bed Short Term Goal (STG) Patient will require only mod assist for transfers in and out of bed STG Duration 12/02/20 Bone Worker Goal (LTG) Patient will be able to get in and out of bed with min assist LTG Duration 01/21/21 Two Impairment functional weakness, unable to ambulate Short Term Goal (STG) patient will be able to ambulate 10' with mod assist for purposes of ADL's STG Duration 12/02/20 Residential Goal (LTG) Patient will be able to ambulate 25' with mod assist for short distances household ambulation, assistance with edema reduction, and quality of life LTG Duration 01/21/21 One Impairment lymphedema Residential Goal (LTG) Decrease and stabilize lymphedema bilateral LE's (no increase or decrease greater than 1 cm over the course of 1 week) and have patient obtain new compression alternative wraps for bilateral LE's. Patient to have adequate assistance in the home to help with donning and doffing compression and using his compression pumps or will work with top case assembler to facilitate better care situation for this patient. LTG Duration 01/21/21 Pain Impairment pain left LE Residential Goal (LTG) Decrease pain left LE 50% to improve tolerance for functional mobility LTG Duration 06/14/19 functional mobility Bone Worker Goal (LTG) Patient to be safe and independent with all household transfers and bed mobility including ability to lift left LE in and out of bed independently. LTG Duration 06/14/19 LE strength deficits Short Term Goal (STG) Initiate LE strengthening exercises Bone Worker Goal (LTG) Improve LE strength by at least 1/2 grade, patient to be independent with HEP for purposes of strengthening. Education of caregiver as necessary and possible LTG Duration 06/14/19 LE ROM deficits Short Term Goal (STG) Instruct in sequential lymphedema ROM exercise program and issue written instructions STG Duration 4 wks Residential Goal (LTG) Improve ROM natacha LE's to WNL, patient to be independent with sequential lymphedema exercises. Education of caregiver as necessary and possible LTG Duration 06/14/19 Lymphedema Impairment lymphedema natacha LE's left greater than right Residential Goal (LTG) Decrease lymphedema to stable level (no increase or decrease > 1 cm over the course of 1 wk) and have patient fit with appropriate compression garment/wraps for self- management. Consider pneumatic pump for lymphedema reduction. LTG Duration 06/14/19 Assessment Summary Assessment Good reduction in right LE, unable to measure left today, but tolerated all compression well and visually appeared to have some reduction in edema. Will see again tomorrow and different caregive to come to PT. Physical Therapy Plan Frequency and Duration Frequency of Treatment 24 visits Duration of Treatment 12 weeks Plan of Care Start Date 10/22/20 Plan of Care End Date 01/21/21 Therapeutic Interventions Therapeutic Interventions Home Exercise Program, Lymphedema Management,Patient/ Caregiver Education,Self-Care/ Home Management,Therapeutic Activities,Therapeutic Exercises Next Visit Focus/Plan Next Note Type Treatment Note Next Visit Plan Increase time in compression pump to 60 min if able left LE
--- NOTE | 2020-10-24 16:35 | PT.OTN ---
Current Diagnoses Morbid (severe) obesity due to excess calories (10/24/20) Hemiplegia, unspecified affecting left nondominant side (10/24/20) Lymphedema, not elsewhere classified (10/24/20) Local infection of the skin and subcutaneous tissue, unspecified (10/24/20) Non-pressure chronic ulcer of other part of left foot with unspecified severity (10/24/20) Weakness (10/24/20) Physical Therapy Treatment Note PT-OP-A Visit Information Start: 10/22/20 09:00 Freq: Status: Active Protocol: Document 10/24/20 14:29 [facility] (Rec: 10/24/20 16:13 [facility] [id number]) Out-Patient Physical Therapy Visit Information Visit Information Visit Type Treatment Note Visit Start Time 14:30 Visit Stop Time 16:00 Total Visit Minutes 90 Visit Number 3 Evaluation Information Evaluation Date 10/22/20 Precautions Precautions decreased sensation left LE, no active movement left LE, caution with compression PT-OP-B Current Condition Start: 10/22/20 09:00 Freq: Status: Active Protocol: Document 10/24/20 14:29 [facility] (Rec: 10/24/20 16:13 [facility] [id number]) Current Condition History of Current Condition Onset Date 1994 Current Complaints worsening lymphedema left LE greater than right History of Current Condition Patient referred to PT due to worsening lymphedema bilateral LE's left >right by wound care physician. 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 Patient lives alone and is unable to self- bandage or apply compression alternative wraps due to hemiparesis left UE. He has caregivers daily provided by [facility] but caregivers are not trained or allowed to provide wound care or wrap his LE's per his and caregiver's report ; outside caregivers scope of practice. He was previously seen in PT for lymphedema management including MLD, compression wrapping, and lymphedema exercises and was assisted to obtain new compression alternatives. Was discharged from PT approximately 1 year ago due to plateau in progress and his needs being beyond what could be provided in the home; PT and physician had recommended care facility placement for patient to get needed care, patient reports he was willing but couldn't get placement due to pandemic. No current housing case manager, PT will need to talk with interim housing case manager Greer Haney when patient provides contact information. Currently using Compression alternatives on right, going to wound care for left LE, was wrapped with Coban at wound care last session due to left compression alternative wraps at home in process of being washed. States not using his pumps at home because caregivers not allowed to apply them and not able to don . Reports sacral decubiti healed since last seen in PT. Has caregivers who provide housework, bathing, cooking, mobility assistance. As above patient reports caregiver not allowed to assist with any wound care or wrapping of his LE's. (caregivers Gulshan, Jacqueline, Lilliana). States he needs new compression wraps, he expressed willingness to call vendor and get prescription from his doctor. Patient also reports he will get PT the contact information for housing case manager. Complications for any new treatment for lymphedema are his difficulty adhering to treatment plan. Prior Treatments and Tests Prior treatment for LE wounds left LE, sacral decubiti, lymphedema. 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 PT-OP-C Subjective Start: 10/22/20 09:00 Freq: Status: Active Protocol: Document 10/24/20 14:29 [facility] (Rec: 10/24/20 16:34 [facility] [id number]) OP-PT Subjective Patient Comments Patient Comments No new c/o. Sees infectious disease specialist, may have to cancel PT appointment tomorrow. Tolerated compression ok. Caregiver not able to come today. PT-OP-G Mobility & Gait Start: 10/22/20 09:00 Freq: Status: Active Protocol: Document 10/22/20 12:58 [facility] (Rec: 10/23/20 14:33 [facility] [id number]) OP Mobility Evaluation Bed Mobility Rolling max assist Supine to and from Sit max assist Transfers Sit to Stand mod to max assist depending on height of surface Bed to Chair Transfers mod assist with bed elevated Car Transfers stays in wheelchair Floor Transfers unable Wheelchair Management Type of Wheelchair power Assessment Details able to drive w/c independently with candy stick and controls on right side OP Gait Assessment Gait Gait Assistance Required: Moderate Assistance Distance (Feet) 2 Able to Maintain Weight Bearing Status Yes During Gait Assistive Devices Assistive Device Gait Belt Comments Gait Comments patient holds onto caregiver PT-OP-J Posture/Palpation/Skin Start: 10/22/20 09:00 Freq: Status: Active Protocol: Document 10/22/20 12:58 [facility] (Rec: 10/23/20 12:58 [facility] [id number]) Skin Assessment Edema Assessment left leg Edema Appearance Weeping Comments severe lymphedema, elephentiasis left LE with multiple pappillomas, unable to see toes due to extent of lymphedema and fibrotic changes (see photos in chart). Skin severely fibrotic left LE, moderately right LE. PT-OP-N Lymphedema Start: 10/22/20 09:00 Freq: Status: Active Protocol: Document 10/24/20 14:29 [facility] (Rec: 10/24/20 16:13 [facility] [id number]) Lymphedema Measurements Lower Extremity Circumference Measurements Left MT Heads 38.5 cm Mid-foot 40.4 cm Medial Malleolus 37.9 cm 20 cm From Medial Malleolus 54.6 cm 30 cm From Medial Malleolus 62.2 cm 40 cm From Medial Malleolus 64.3 cm 50 cm From Medial Malleolus 71.5 cm - measurements are from bottom of heel, ankle at 10 cm toe and midfoot measurements over gauze dressing Right MT Heads 28.3 cm Mid-foot 29.8 cm Medial Malleolus 27.5 cm 20 cm From Medial Malleolus 36 cm 30 cm From Medial Malleolus 46.3 cm 40 cm From Medial Malleolus 54.6 cm 50 cm From Medial Malleolus 62.5 cm 60 cm From Medial Malleolus 76 cm - measurements are from bottom of heel, ankle at 10 cm PT-OP-Q Treatments Start: 10/22/20 09:00 Freq: Status: Active Protocol: Document 10/24/20 14:29 [facility] (Rec: 10/24/20 16:13 [facility] [id number]) Therapeutic Exercises Supine Exercises abdominal breathing Reps/Minutes 5x2 abdominal crunch Reps/Minutes 10x SAQ Reps/Minutes 10x2 Comments mod assist left hip IR/ER Reps/Minutes 10x Comments max assist left hip abd Reps/Minutes 10x Comments AAROM right, max assist left glut sets Reps/Minutes 10x quad sets Reps/Minutes 10x ankle pumps Supine Exercise Name pumps, inve/ev, circles Reps/Minutes 10x Comments max assist left Therapeutic Activity Therapeutic Activity transfers Name w/c to and from mat table Reps/Minutes 2x Comments ambulated 2' mod assist from caregiver sit to stand x 3 from elevated mat table used in chair mod for ease of getting on and off Lymphedema Treatment Lymphedema Wrapping Body Location bilateral LE's Materials Right: toe wraps, Tubigrip F toes to ankle, G toes to above ankle, H ankle to knee. Tubigrip covered by Farrow wraps foot and lower leg Left: assisted wound care staff with positioning of patient for wound dressing application, covered by comfort Coban and thin Coban. Stretch bandage then applied to patient's left foot by PT, and Farrow wrap applied lower leg by PT. Patient Education Other leave all compression on overnight if possible. Returns to PT tomorrow Other Other sequential pump left LE x 40 min PT-OP-R Modalities Start: 10/22/20 09:00 Freq: Status: Active Protocol: Document 10/24/20 14:29 [facility] (Rec: 10/24/20 16:13 [facility] [id number]) Compression Pump Treatment Treatment Location Left Leg Pressure Amount (mmHg) (mmHG) 50 Inflation Time (Seconds) 40 Deflation Time (Seconds) 10 Treatment Duration (minutes) 35 Treatment Tolerance Good PT-OP-T Assessment and Plan Start: 10/22/20 09:00 Freq: Status: Active Protocol: Document 10/24/20 14:29 [facility] (Rec: 10/24/20 16:13 [facility] [id number]) Physical Therapy Assessment Goals Three Impairment Functional mobility; requires max assist for transfers in and out of bed Short Term Goal (STG) Patient will require only mod assist for transfers in and out of bed STG Duration 12/02/20 [facility] Goal (LTG) Patient will be able to get in and out of bed with min assist LTG Duration 01/21/21 Two Impairment functional weakness, unable to ambulate Short Term Goal (STG) patient will be able to ambulate 10' with mod assist for purposes of ADL's STG Duration 12/02/20 Will Call Clerk Goal (LTG) Patient will be able to ambulate 25' with mod assist for short distances household ambulation, assistance with edema reduction, and quality of life LTG Duration 01/21/21 One Impairment lymphedema Will Call Clerk Goal (LTG) Decrease and stabilize lymphedema bilateral LE's (no increase or decrease greater than 1 cm over the course of 1 week) and have patient obtain new compression alternative wraps for bilateral LE's. Patient to have adequate assistance in the home to help with donning and doffing compression and using his compression pumps or will work with housing case manager to facilitate better care situation for this patient. LTG Duration 01/21/21 Pain Impairment pain left LE [facility] Goal (LTG) Decrease pain left LE 50% to improve tolerance for functional mobility LTG Duration 06/14/19 functional mobility [facility] Goal (LTG) Patient to be safe and independent with all household transfers and bed mobility including ability to lift left LE in and out of bed independently. LTG Duration 06/14/19 LE strength deficits Short Term Goal (STG) Initiate LE strengthening exercises [facility] Goal (LTG) Improve LE strength by at least 1/2 grade, patient to be independent with HEP for purposes of strengthening. Education of caregiver as necessary and possible LTG Duration 06/14/19 LE ROM deficits Short Term Goal (STG) Instruct in sequential lymphedema ROM exercise program and issue written instructions STG Duration 4 wks Will Call Clerk Goal (LTG) Improve ROM natacha LE's to WNL, patient to be independent with sequential lymphedema exercises. Education of caregiver as necessary and possible LTG Duration 06/14/19 Lymphedema Impairment lymphedema natacha LE's left greater than right [facility] Goal (LTG) Decrease lymphedema to stable level (no increase or decrease > 1 cm over the course of 1 wk) and have patient fit with appropriate compression garment/wraps for self- management. Consider pneumatic pump for lymphedema reduction. LTG Duration 06/14/19 Assessment Summary Assessment Decreased circumferential measurements bilateral LE's. Added toe wraps to compression on right LE, difficult due to pappillomas. Patient seeing infectious disease physician tomorrow at 2:00 to evaluate left LE, may have to miss PT, will let us know. Physical Therapy Plan Frequency and Duration Frequency of Treatment 24 visits Duration of Treatment 12 weeks Plan of Care Start Date 10/22/20 Plan of Care End Date 01/21/21 Therapeutic Interventions Therapeutic Interventions Home Exercise Program, Lymphedema Management,Patient/ Caregiver Education,Self-Care/ Home Management,Therapeutic Activities,Therapeutic Exercises Next Visit Focus/Plan Next Note Type Treatment Note Next Visit Plan Increase time in compression pump to 60 min if able left LE . Continue with toe wrapping, increase compression to left foot with short stretch bandages over Coban from wound care or add additional Coban compression (may last longer, especially over weekend as patient unable to adjust or change wraps.
--- NOTE | 2020-10-25 16:10 | PT.OTN ---
Current Diagnoses Morbid (severe) obesity due to excess calories (10/25/20) Hemiplegia, unspecified affecting left nondominant side (10/25/20) Lymphedema, not elsewhere classified (10/25/20) Local infection of the skin and subcutaneous tissue, unspecified (10/25/20) Non-pressure chronic ulcer of other part of left foot with unspecified severity (10/25/20) Weakness (10/25/20) Physical Therapy Treatment Note PT-OP-A Visit Information Start: 10/22/20 09:00 Freq: Status: Active Protocol: Document 10/25/20 13:02 SAK (Rec: 10/25/20 13:26 SAK [id number]) Out-Patient Physical Therapy Visit Information Visit Information Visit Type Treatment Note Visit Start Time 13:00 Visit Stop Time 14:30 Total Visit Minutes 90 Visit Number 4 Evaluation Information Evaluation Date 10/22/20 Precautions Precautions decreased sensation left LE, no active movement left LE, caution with compression PT-OP-B Current Condition Start: 10/22/20 09:00 Freq: Status: Active Protocol: Document 10/25/20 13:02 SAK (Rec: 10/25/20 13:26 SAK [id number]) Current Condition History of Current Condition Onset Date 1994 Current Complaints worsening lymphedema left LE greater than right History of Current Condition Patient referred to PT due to worsening lymphedema bilateral LE's left >right by wound care physician. 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 Patient lives alone and is unable to self- bandage or apply compression alternative wraps due to hemiparesis left UE. He has caregivers daily provided by [facility] but caregivers are not trained or allowed to provide wound care or wrap his LE's per his and caregiver's report ; outside caregivers scope of practice. He was previously seen in PT for lymphedema management including MLD, compression wrapping, and lymphedema exercises and was assisted to obtain new compression alternatives. Was discharged from PT approximately 1 year ago due to plateau in progress and his needs being beyond what could be provided in the home; PT and physician had recommended care facility placement for patient to get needed care, patient reports he was willing but couldn't get placement due to pandemic. No current case supervisor, PT will need to talk with interim case supervisor Greer Haney when patient provides contact information. Currently using Compression alternatives on right, going to wound care for left LE, was wrapped with Coban at wound care last session due to left compression alternative wraps at home in process of being washed. States not using his pumps at home because caregivers not allowed to apply them and not able to don . Reports sacral decubiti healed since last seen in PT. Has caregivers who provide housework, bathing, cooking, mobility assistance. As above patient reports caregiver not allowed to assist with any wound care or wrapping of his LE's. (caregivers Gulshan, Jacqueline, Lilliana). States he needs new compression wraps, he expressed willingness to call vendor and get prescription from his doctor. Patient also reports he will get PT the contact information for case supervisor. Complications for any new treatment for lymphedema are his difficulty adhering to treatment plan. Prior Treatments and Tests Prior treatment for LE wounds left LE, sacral decubiti, lymphedema. 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 PT-OP-C Subjective Start: 10/22/20 09:00 Freq: Status: Active Protocol: Document 10/25/20 13:02 [facility] (Rec: 10/25/20 13:26 [facility] [id number]) OP-PT Subjective Patient Comments Patient Comments Saw infectious disease doctor this am (Michael Velarde, ); he will be discussing patient's case with Dr. Valladares. No new c/o. Patient comes to PT wearing Farrow wraps over tubigrip right foot and lower leg with Farrow wrap slid 1/3 way down lower leg, thigh component around ankle. On left wearing Coban over comfort Coban and dressing from wound care. Elastic wrap left foot. PT-OP-G Mobility & Gait Start: 10/22/20 09:00 Freq: Status: Active Protocol: Document 10/22/20 12:58 [facility] (Rec: 10/23/20 14:33 [facility] [id number]) OP Mobility Evaluation Bed Mobility Rolling max assist Supine to and from Sit max assist Transfers Sit to Stand mod to max assist depending on height of surface Bed to Chair Transfers mod assist with bed elevated Car Transfers stays in wheelchair Floor Transfers unable Wheelchair Management Type of Wheelchair power Assessment Details able to drive w/c independently with candy stick and controls on right side OP Gait Assessment Gait Gait Assistance Required: Moderate Assistance Distance (Feet) 2 Able to Maintain Weight Bearing Status Yes During Gait Assistive Devices Assistive Device Gait Belt Comments Gait Comments patient holds onto caregiver PT-OP-J Posture/Palpation/Skin Start: 10/22/20 09:00 Freq: Status: Active Protocol: Document 10/22/20 12:58 [facility] (Rec: 10/23/20 12:58 [facility] [id number]) Skin Assessment Edema Assessment left leg Edema Appearance Weeping Comments severe lymphedema, elephentiasis left LE with multiple pappillomas, unable to see toes due to extent of lymphedema and fibrotic changes (see photos in chart). Skin severely fibrotic left LE, moderately right LE. PT-OP-N Lymphedema Start: 10/22/20 09:00 Freq: Status: Active Protocol: Document 10/25/20 13:02 [facility] (Rec: 10/25/20 16:09 [facility] [id number]) Lymphedema Measurements Lower Extremity Circumference Measurements Left MT Heads 37.7 cm Mid-foot 42.2 cm Medial Malleolus 35.2 cm 20 cm From Medial Malleolus 54.3 cm 30 cm From Medial Malleolus 62.6 cm 40 cm From Medial Malleolus 65.4 cm 50 cm From Medial Malleolus 71.2 cm 60 cm From Medial Malleolus 80.2 cm - measurements are from bottom of heel, ankle at 10 cm toe and midfoot measurements over gauze dressing Right MT Heads 28.2 cm Mid-foot 30.4 cm Medial Malleolus 27.3 cm 20 cm From Medial Malleolus 35.4 cm 30 cm From Medial Malleolus 47.6 cm 40 cm From Medial Malleolus 58 cm 50 cm From Medial Malleolus 61.6 cm 60 cm From Medial Malleolus 72.7 cm Knee Joint 60.9 cm PT-OP-Q Treatments Start: 10/22/20 09:00 Freq: Status: Active Protocol: Document 10/25/20 13:02 [facility] (Rec: 10/25/20 13:26 [facility] [id number]) Therapeutic Exercises Supine Exercises abdominal breathing Reps/Minutes 5x2 abdominal crunch Reps/Minutes 10x SAQ Reps/Minutes 10x2 Comments mod assist left hip IR/ER Reps/Minutes 10x Comments max assist left hip abd Reps/Minutes 10x Comments AAROM right, max assist left glut sets Reps/Minutes 10x quad sets Reps/Minutes 10x ankle pumps Supine Exercise Name pumps, inve/ev, circles Reps/Minutes 10x Comments max assist left Therapeutic Activity Therapeutic Activity transfers Name w/c to and from mat table Reps/Minutes 2x Comments ambulated 2' mod assist from caregiver sit to stand x 3 from elevated mat table used in chair mod for ease of getting on and off Lymphedema Treatment Manual Lymphatic Drainage Location trunk, abdominal breathing, right LE, left proximal LE Duration 20 Comments application of Lubriderm lotion to left LE for skin care. Lymphedema Wrapping Body Location bilateral LE's Materials Right: toe wraps, Tricofix to foot and ankle covered with Coban, Tubigrip F toes to ankle, G toes to above ankle, H ankle to knee. Tubigrip covered by Farrow wraps foot and lower leg Left: Thigh component of Farrow wraps applied. Wound care staff to apply dressing after PT, requested increased compression with Coban, more distally, less proximally, covered by Farrow wrap . Sequential Lymphedema Exercises Comments exercises as above Other Other Use of chair configuration with hi-lo table with yoga mat for comfort, pillow under each LE, legs elevated and lowered at times for patient comfort. PT-OP-R Modalities Start: 10/22/20 09:00 Freq: Status: Active Protocol: Document 10/25/20 13:02 [facility] (Rec: 10/25/20 13:26 [facility] [id number]) Compression Pump Treatment Treatment Location Left Leg Pressure Amount (mmHg) (mmHG) 50 Inflation Time (Seconds) 40 Deflation Time (Seconds) 10 Treatment Duration (minutes) 55 Treatment Tolerance Good PT-OP-T Assessment and Plan Start: 10/22/20 09:00 Freq: Status: Active Protocol: Document 10/25/20 13:02 [facility] (Rec: 10/25/20 13:26 [facility] [id number]) Physical Therapy Assessment Goals Three Impairment Functional mobility; requires max assist for transfers in and out of bed Short Term Goal (STG) Patient will require only mod assist for transfers in and out of bed STG Duration 12/02/20 Residential Goal (LTG) Patient will be able to get in and out of bed with min assist LTG Duration 01/21/21 Two Impairment functional weakness, unable to ambulate Short Term Goal (STG) patient will be able to ambulate 10' with mod assist for purposes of ADL's STG Duration 12/02/20 Shuttlecock Assembler Goal (LTG) Patient will be able to ambulate 25' with mod assist for short distances household ambulation, assistance with edema reduction, and quality of life LTG Duration 01/21/21 One Impairment lymphedema Residential Goal (LTG) Decrease and stabilize lymphedema bilateral LE's (no increase or decrease greater than 1 cm over the course of 1 week) and have patient obtain new compression alternative wraps for bilateral LE's. Patient to have adequate assistance in the home to help with donning and doffing compression and using his compression pumps or will work with case supervisor to facilitate better care situation for this patient. LTG Duration 01/21/21 Pain Impairment pain left LE Shuttlecock Assembler Goal (LTG) Decrease pain left LE 50% to improve tolerance for functional mobility LTG Duration 06/14/19 functional mobility Residential Goal (LTG) Patient to be safe and independent with all household transfers and bed mobility including ability to lift left LE in and out of bed independently. LTG Duration 06/14/19 LE strength deficits Short Term Goal (STG) Initiate LE strengthening exercises Shuttlecock Assembler Goal (LTG) Improve LE strength by at least 1/2 grade, patient to be independent with HEP for purposes of strengthening. Education of caregiver as necessary and possible LTG Duration 06/14/19 LE ROM deficits Short Term Goal (STG) Instruct in sequential lymphedema ROM exercise program and issue written instructions STG Duration 4 wks Residential Goal (LTG) Improve ROM natacha LE's to WNL, patient to be independent with sequential lymphedema exercises. Education of caregiver as necessary and possible LTG Duration 06/14/19 Lymphedema Impairment lymphedema natacha LE's left greater than right Residential Goal (LTG) Decrease lymphedema to stable level (no increase or decrease > 1 cm over the course of 1 wk) and have patient fit with appropriate compression garment/wraps for self- management. Consider pneumatic pump for lymphedema reduction. LTG Duration 06/14/19 Assessment Summary Assessment measurements variable today, with proximal right lower leg increased due to Farrow wraps slid down, right foot sl larger. Left foot measurements larger, possibly due to loose Coban wrap from wound care and not having foot component for Farrow wrap. Also due to patient appointment at infectious disease clinic and transportation there and to PT LE's have been dependent for prolonged period today prior to PT possibly contributing to measurements today. Patient tolerated toe wraps well last night. Physical Therapy Plan Frequency and Duration Frequency of Treatment 24 visits Duration of Treatment 12 weeks Plan of Care Start Date 10/22/20 Plan of Care End Date 01/21/21 Therapeutic Interventions Therapeutic Interventions Home Exercise Program, Lymphedema Management,Patient/ Caregiver Education,Self-Care/ Home Management,Therapeutic Activities,Therapeutic Exercises Next Visit Focus/Plan Next Note Type Treatment Note Next Visit Plan Add knee component of Farrow wraps as tolerated. Talk with case supervisor (still awaiting correct phone number; patient gave wrong number) about patient care needs at home, clarify what caregivers able to do. Continue lymphedema management, lymphedema pump to right LE, emphasis on MLD trunk and proximal leg on left , possible additional Coban with compression on left foot; feel Comprilan may not stay in place considering patient mobility.
--- NOTE | 2020-10-30 17:17 | PT.OTN ---
Current Diagnoses Morbid (severe) obesity due to excess calories (10/30/20) Hemiplegia, unspecified affecting left nondominant side (10/30/20) Lymphedema, not elsewhere classified (10/30/20) Local infection of the skin and subcutaneous tissue, unspecified (10/30/20) Non-pressure chronic ulcer of other part of left foot with unspecified severity (10/30/20) Weakness (10/30/20) Physical Therapy Treatment Note PT-OP-A Visit Information Start: 10/22/20 09:00 Freq: Status: Active Protocol: Document 10/30/20 16:50 SAK (Rec: 10/30/20 17:17 SAK [id number]) Out-Patient Physical Therapy Visit Information Visit Information Visit Type Treatment Note Visit Start Time 14:35 Visit Stop Time 16:05 Total Visit Minutes 90 Visit Number 5 Evaluation Information Evaluation Date 10/22/20 Precautions Precautions decreased sensation left LE, no active movement left LE, caution with compression PT-OP-B Current Condition Start: 10/22/20 09:00 Freq: Status: Active Protocol: Document 10/30/20 16:50 SAK (Rec: 10/30/20 17:17 SAK [id number]) Current Condition History of Current Condition Onset Date 1994 Current Complaints worsening lymphedema left LE greater than right History of Current Condition Patient referred to PT due to worsening lymphedema bilateral LE's left >right by wound care physician. 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 Patient lives alone and is unable to self- bandage or apply compression alternative wraps due to hemiparesis left UE. He has caregivers daily provided by [facility] but caregivers are not trained or allowed to provide wound care or wrap his LE's per his and caregiver's report ; outside caregivers scope of practice. He was previously seen in PT for lymphedema management including MLD, compression wrapping, and lymphedema exercises and was assisted to obtain new compression alternatives. Was discharged from PT approximately 1 year ago due to plateau in progress and his needs being beyond what could be provided in the home; PT and physician had recommended care facility placement for patient to get needed care, patient reports he was willing but couldn't get placement due to pandemic. No current behavioral health case manager, PT will need to talk with interim behavioral health case manager Greer Haney when patient provides contact information. Currently using Compression alternatives on right, going to wound care for left LE, was wrapped with Coban at wound care last session due to left compression alternative wraps at home in process of being washed. States not using his pumps at home because caregivers not allowed to apply them and not able to don . Reports sacral decubiti healed since last seen in PT. Has caregivers who provide housework, bathing, cooking, mobility assistance. As above patient reports caregiver not allowed to assist with any wound care or wrapping of his LE's. (caregivers Gulshan, Jacqueline, Lilliana). States he needs new compression wraps, he expressed willingness to call vendor and get prescription from his doctor. Patient also reports he will get PT the contact information for behavioral health case manager. Complications for any new treatment for lymphedema are his difficulty adhering to treatment plan. Prior Treatments and Tests Prior treatment for LE wounds left LE, sacral decubiti, lymphedema. 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 PT-OP-C Subjective Start: 10/22/20 09:00 Freq: Status: Active Protocol: Document 10/30/20 16:50 [facility] (Rec: 10/30/20 17:17 [facility] [id number]) OP-PT Subjective Patient Comments Patient Comments Patient brought copy of infectious disease doctor's note which did not recommend any antibiotics. It did recommend care placement as patient's medical needs are unable to be adequately addressed at home (as both this PT and wound care staff agree with). Patient continues to express that he is willing but his insurance can't get him placed. PT-OP-G Mobility & Gait Start: 10/22/20 09:00 Freq: Status: Active Protocol: Document 10/22/20 12:58 [facility] (Rec: 10/23/20 14:33 [facility] [id number]) OP Mobility Evaluation Bed Mobility Rolling max assist Supine to and from Sit max assist Transfers Sit to Stand mod to max assist depending on height of surface Bed to Chair Transfers mod assist with bed elevated Car Transfers stays in wheelchair Floor Transfers unable Wheelchair Management Type of Wheelchair power Assessment Details able to drive w/c independently with candy stick and controls on right side OP Gait Assessment Gait Gait Assistance Required: Moderate Assistance Distance (Feet) 2 Able to Maintain Weight Bearing Status Yes During Gait Assistive Devices Assistive Device Gait Belt Comments Gait Comments patient holds onto caregiver PT-OP-J Posture/Palpation/Skin Start: 10/22/20 09:00 Freq: Status: Active Protocol: Document 10/22/20 12:58 [facility]AK (Rec: 10/23/20 12:58 [facility] [id number]) Skin Assessment Edema Assessment left leg Edema Appearance Weeping Comments severe lymphedema, elephentiasis left LE with multiple pappillomas, unable to see toes due to extent of lymphedema and fibrotic changes (see photos in chart). Skin severely fibrotic left LE, moderately right LE. PT-OP-N Lymphedema Start: 10/22/20 09:00 Freq: Status: Active Protocol: Document 10/30/20 16:50 [facility] (Rec: 10/30/20 17:17 [facility] [id number]) Lymphedema Measurements Lower Extremity Circumference Measurements Left - Not measured today due to time constraints with wound care coming to dress wound Right MT Heads 27.4 cm Mid-foot 29.8 cm Medial Malleolus 27.4 cm 20 cm From Medial Malleolus 37.6 cm 30 cm From Medial Malleolus 47.8 cm 40 cm From Medial Malleolus 53.4 cm 50 cm From Medial Malleolus 64.8 cm 60 cm From Medial Malleolus 73.5 cm Knee Joint 53.9 cm - measurements are from bottom of heel, ankle at 10 cm PT-OP-Q Treatments Start: 10/22/20 09:00 Freq: Status: Active Protocol: Document 10/30/20 16:50 [facility] (Rec: 10/30/20 17:17 [facility] [id number]) Therapeutic Exercises Supine Exercises abdominal breathing Reps/Minutes 5x4 Lymphedema Treatment Manual Lymphatic Drainage Location trunk, abdominal breathing, right LE, left proximal LE Duration 20 Comments application of Lubriderm lotion to right LE for skin care. Lymphedema Wrapping Materials Right: toe wraps, 1Coban over toe wraps for increased compression, Tubigrip size H toes to knee, with fan of 3 layers Artiflex anterior ankle due to irritation. Tubigrip covered by Farrow wraps foot and lower leg. Tricofix Size J knee and thigh under knee and thigh Farrow wrap components Left: Wound care staff applied wound dressing to left foot followed by Comfort Coban then regular Coban toes to knee with extra Coban to foot for increased distal compression. Tricofix Size J knee and thigh, knee and Thigh component of Farrow wraps applied. Other Other Use of chair configuration with hi-lo table with yoga mat for comfort, pillow under each LE, legs elevated and lowered at times for patient comfort. 12 box available for patient suport under right LE when table elevated in chair mode PT-OP-R Modalities Start: 10/22/20 09:00 Freq: Status: Active Protocol: Document 10/30/20 16:50 [facility]AK (Rec: 10/30/20 17:17 SAK [id number]) Compression Pump Treatment Treatment Location Left Leg Pressure Amount (mmHg) (mmHG) 50 Inflation Time (Seconds) 40 Deflation Time (Seconds) 10 Treatment Duration (minutes) 45 Treatment Tolerance Good PT-OP-T Assessment and Plan Start: 10/22/20 09:00 Freq: Status: Active Protocol: Document 10/30/20 16:50 [facility]AK (Rec: 10/30/20 17:17 [facility] [id number]) Physical Therapy Assessment Goals Three Impairment Functional mobility; requires max assist for transfers in and out of bed Short Term Goal (STG) Patient will require only mod assist for transfers in and out of bed STG Duration 12/02/20 Retirement Goal (LTG) Patient will be able to get in and out of bed with min assist LTG Duration 01/21/21 Two Impairment functional weakness, unable to ambulate Short Term Goal (STG) patient will be able to ambulate 10' with mod assist for purposes of ADL's STG Duration 12/02/20 Cancer Spec Goal (LTG) Patient will be able to ambulate 25' with mod assist for short distances household ambulation, assistance with edema reduction, and quality of life LTG Duration 01/21/21 One Impairment lymphedema Retirement Goal (LTG) Decrease and stabilize lymphedema bilateral LE's (no increase or decrease greater than 1 cm over the course of 1 week) and have patient obtain new compression alternative wraps for bilateral LE's. Patient to have adequate assistance in the home to help with donning and doffing compression and using his compression pumps or will work with behavioral health case manager to facilitate better care situation for this patient. LTG Duration 01/21/21 Pain Impairment pain left LE Retirement Goal (LTG) Decrease pain left LE 50% to improve tolerance for functional mobility LTG Duration 06/14/19 functional mobility Retirement Goal (LTG) Patient to be safe and independent with all household transfers and bed mobility including ability to lift left LE in and out of bed independently. LTG Duration 06/14/19 LE strength deficits Short Term Goal (STG) Initiate LE strengthening exercises Retirement Goal (LTG) Improve LE strength by at least 1/2 grade, patient to be independent with HEP for purposes of strengthening. Education of caregiver as necessary and possible LTG Duration 06/14/19 LE ROM deficits Short Term Goal (STG) Instruct in sequential lymphedema ROM exercise program and issue written instructions STG Duration 4 wks Retirement Goal (LTG) Improve ROM natacha LE's to WNL, patient to be independent with sequential lymphedema exercises. Education of caregiver as necessary and possible LTG Duration 06/14/19 Lymphedema Impairment lymphedema natacha LE's left greater than right Retirement Goal (LTG) Decrease lymphedema to stable level (no increase or decrease > 1 cm over the course of 1 wk) and have patient fit with appropriate compression garment/wraps for self- management. Consider pneumatic pump for lymphedema reduction. LTG Duration 06/14/19 Assessment Summary Assessment Minimal change in measurements right LE with irritation visible but no break in skin anterior ankle. Difficult to get reduction right foot due to pappilomas distal foot over toes but 1Coban applied over usual toe bandages and padding was provided at irritated anterior ankle. Due to time constraints with coordinating with wound care no measurements taken left LE today. Patient has fair tolerance for sequential pneumatic pump. Wound appeared to be draining greenish fluid. Continues to be difficult to manage patient lymphedema left LE due to hemiparesis, low activity level and ability to comply with recommendations, and lack of adequate care in the home. Highly recommend placement in care facility for this patient if and when possible. Physical Therapy Plan Frequency and Duration Frequency of Treatment 24 visits Duration of Treatment 12 weeks Plan of Care Start Date 10/22/20 Plan of Care End Date 01/21/21 Therapeutic Interventions Therapeutic Interventions Home Exercise Program, Lymphedema Management,Patient/ Caregiver Education,Self-Care/ Home Management,Therapeutic Activities,Therapeutic Exercises Next Visit Focus/Plan Next Note Type Treatment Note Next Visit Plan Assess response to 1Coban to toes right LE. Increased MLD left trunk and proximal LE prior to pump application. Emphasis right LE primarily on compression bandaging and Farrow wrap application, with more time spent on left LE issues.
--- NOTE | 2020-11-01 17:18 | PT.OTN ---
Current Diagnoses Morbid (severe) obesity due to excess calories (11/01/20) Hemiplegia, unspecified affecting left nondominant side (11/01/20) Lymphedema, not elsewhere classified (11/01/20) Local infection of the skin and subcutaneous tissue, unspecified (11/01/20) Non-pressure chronic ulcer of other part of left foot with unspecified severity (11/01/20) Weakness (11/01/20) Physical Therapy Treatment Note PT-OP-A Visit Information Start: 10/22/20 09:00 Freq: Status: Active Protocol: Document 11/01/20 16:58 [facility] (Rec: 11/01/20 17:17 [facility] [id number]) Out-Patient Physical Therapy Visit Information Visit Information Visit Type Treatment Note Visit Start Time 13:00 Visit Stop Time 14:25 Total Visit Minutes 85 Visit Number 6 Evaluation Information Evaluation Date 10/22/20 Precautions Precautions decreased sensation left LE, no active movement left LE, caution with compression PT-OP-B Current Condition Start: 10/22/20 09:00 Freq: Status: Active Protocol: Document 11/01/20 16:58 [facility] (Rec: 11/01/20 17:17 [facility] [id number]) Current Condition History of Current Condition Onset Date 1994 Current Complaints worsening lymphedema left LE greater than right History of Current Condition Patient referred to PT due to worsening lymphedema bilateral LE's left >right by wound care physician. 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 Patient lives alone and is unable to self- bandage or apply compression alternative wraps due to hemiparesis left UE. He has caregivers daily provided by [facility] but caregivers are not trained or allowed to provide wound care or wrap his LE's per his and caregiver's report ; outside caregivers scope of practice. He was previously seen in PT for lymphedema management including MLD, compression wrapping, and lymphedema exercises and was assisted to obtain new compression alternatives. Was discharged from PT approximately 1 year ago due to plateau in progress and his needs being beyond what could be provided in the home; PT and physician had recommended care facility placement for patient to get needed care, patient reports he was willing but couldn't get placement due to pandemic. No current watch case polisher, PT will need to talk with interim watch case polisher Greer Haney when patient provides contact information. Currently using Compression alternatives on right, going to wound care for left LE, was wrapped with Coban at wound care last session due to left compression alternative wraps at home in process of being washed. States not using his pumps at home because caregivers not allowed to apply them and not able to don . Reports sacral decubiti healed since last seen in PT. Has caregivers who provide housework, bathing, cooking, mobility assistance. As above patient reports caregiver not allowed to assist with any wound care or wrapping of his LE's. (caregivers Gulshan, Jacqueline, Lilliana). States he needs new compression wraps, he expressed willingness to call vendor and get prescription from his doctor. Patient also reports he will get PT the contact information for watch case polisher. Complications for any new treatment for lymphedema are his difficulty adhering to treatment plan. Prior Treatments and Tests Prior treatment for LE wounds left LE, sacral decubiti, lymphedema. 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 PT-OP-C Subjective Start: 10/22/20 09:00 Freq: Status: Active Protocol: Document 11/01/20 16:58 [facility] (Rec: 11/01/20 17:17 [facility] [id number]) OP-PT Subjective Patient Comments Patient Comments No new c/o. To PT today with caregiver Gulshan, has Farrow wraps on right foot, lower leg and thigh (has been unable to find knee component). On left wearing wound bandaging including extra Coban layer for compression on foot, Farrow wrap lower leg, knee componenet has slid down, thigh componenet on but has rolled causing a tourniquet efect. PT-OP-G Mobility & Gait Start: 10/22/20 09:00 Freq: Status: Active Protocol: Document 10/22/20 12:58 [facility] (Rec: 10/23/20 14:33 [facility] [id number]) OP Mobility Evaluation Bed Mobility Rolling max assist Supine to and from Sit max assist Transfers Sit to Stand mod to max assist depending on height of surface Bed to Chair Transfers mod assist with bed elevated Car Transfers stays in wheelchair Floor Transfers unable Wheelchair Management Type of Wheelchair power Assessment Details able to drive w/c independently with candy stick and controls on right side OP Gait Assessment Gait Gait Assistance Required: Moderate Assistance Distance (Feet) 2 Able to Maintain Weight Bearing Status Yes During Gait Assistive Devices Assistive Device Gait Belt Comments Gait Comments patient holds onto caregiver PT-OP-J Posture/Palpation/Skin Start: 10/22/20 09:00 Freq: Status: Active Protocol: Document 10/22/20 12:58 [facility] (Rec: 10/23/20 12:58 [facility] [id number]) Skin Assessment Edema Assessment left leg Edema Appearance Weeping Comments severe lymphedema, elephentiasis left LE with multiple pappillomas, unable to see toes due to extent of lymphedema and fibrotic changes (see photos in chart). Skin severely fibrotic left LE, moderately right LE. PT-OP-N Lymphedema Start: 10/22/20 09:00 Freq: Status: Active Protocol: Document 11/01/20 16:58 [facility] (Rec: 11/01/20 17:17 [facility] [id number]) Lymphedema Measurements Lower Extremity Circumference Measurements Left MT Heads 37.5 cm Mid-foot 42 cm Medial Malleolus 35 cm 20 cm From Medial Malleolus 45.5 cm 30 cm From Medial Malleolus 54.6 cm 40 cm From Medial Malleolus 56.3 cm 50 cm From Medial Malleolus 60.8 cm 60 cm From Medial Malleolus 82.9 cm Knee Joint 64 cm - measurements are from bottom of heel, ankle at 10 cm toe and midfoot measurements over gauze dressing Right MT Heads 27 cm Mid-foot 30.4 cm Medial Malleolus 28.4 cm 20 cm From Medial Malleolus 36.4 cm 30 cm From Medial Malleolus 48 cm 40 cm From Medial Malleolus 57.8 cm 50 cm From Medial Malleolus 64.5 cm 60 cm From Medial Malleolus 73.4 cm Knee Joint 54.5 cm - measurements are from bottom of heel, ankle at 10 cm PT-OP-Q Treatments Start: 10/22/20 09:00 Freq: Status: Active Protocol: Document 11/01/20 16:58 [facility] (Rec: 11/01/20 17:17 [facility] [id number]) Therapeutic Exercises Supine Exercises abdominal breathing Reps/Minutes 5x4 abdominal crunch Reps/Minutes 10x Comments seated hip IR/ER Reps/Minutes 10x Comments active right, max assist left hip abd Reps/Minutes 10x Comments AAROM right, max assist left glut sets Reps/Minutes 10x4 quad sets Reps/Minutes 10x Therapeutic Activity Therapeutic Activity transfers Name w/c to and from mat table Reps/Minutes 2x Comments ambulated 2' mod assist from caregiver sit to stand x 3 from elevated mat table used in chair mode for ease of getting on and off Lymphedema Treatment Manual Lymphatic Drainage Location trunk, abdominal breathing, left LE Duration 25 Comments application of Lubriderm lotion to right LE for skin care. Lymphedema Wrapping Materials RIGHT: toe wraps, 1Coban over toe wraps for increased compression, 3 Coban right foot, Tubigrip size H toes to knee, with fan of 3 layers Artiflex anterior ankle due to irritation. Tubigrip covered by Farrow wraps foot and lower leg. Tricofix Size J knee and thigh under knee and thigh Farrow wrap components Left: Wound care staff applied wound dressing to left foot followed by Comfort Coban then regular Coban toes to knee with extra Coban to foot for increased distal compression. Tricofix Size J knee and thigh, knee and Thigh component of Farrow wraps applied. LEFT: done by wound care today , advised continued extra layer Coban left foot, apply Farrow wraps to lower leg and knee, not thigh Other Other Use of chair configuration with hi-lo table with yoga mat for comfort, pillow under each LE, legs elevated and lowered at times for patient comfort. 12 box available for patient suport under right LE when table elevated in chair mode PT-OP-R Modalities Start: 10/22/20 09:00 Freq: Status: Active Protocol: Document 11/01/20 16:58 [facility] (Rec: 11/01/20 17:17 [facility] [id number]) Compression Pump Treatment Treatment Location Left Leg Pressure Amount (mmHg) (mmHG) 50 Inflation Time (Seconds) 40 Deflation Time (Seconds) 10 Treatment Duration (minutes) 50 Treatment Tolerance Good PT-OP-T Assessment and Plan Start: 10/22/20 09:00 Freq: Status: Active Protocol: Document 11/01/20 16:58 [facility] (Rec: 11/01/20 17:17 [facility] [id number]) Physical Therapy Assessment Goals Three Impairment Functional mobility; requires max assist for transfers in and out of bed Short Term Goal (STG) Patient will require only mod assist for transfers in and out of bed STG Duration 12/02/20 Mcfp Goal (LTG) Patient will be able to get in and out of bed with min assist LTG Duration 01/21/21 Two Impairment functional weakness, unable to ambulate Short Term Goal (STG) patient will be able to ambulate 10' with mod assist for purposes of ADL's STG Duration 12/02/20 Mcfp Goal (LTG) Patient will be able to ambulate 25' with mod assist for short distances household ambulation, assistance with edema reduction, and quality of life LTG Duration 01/21/21 One Impairment lymphedema [place] Goal (LTG) Decrease and stabilize lymphedema bilateral LE's (no increase or decrease greater than 1 cm over the course of 1 week) and have patient obtain new compression alternative wraps for bilateral LE's. Patient to have adequate assistance in the home to help with donning and doffing compression and using his compression pumps or will work with watch case polisher to facilitate better care situation for this patient. LTG Duration 01/21/21 Pain Impairment pain left LE [place] Goal (LTG) Decrease pain left LE 50% to improve tolerance for functional mobility LTG Duration 06/14/19 functional mobility Mcfp Goal (LTG) Patient to be safe and independent with all household transfers and bed mobility including ability to lift left LE in and out of bed independently. LTG Duration 06/14/19 LE strength deficits Short Term Goal (STG) Initiate LE strengthening exercises Mcfp Goal (LTG) Improve LE strength by at least 1/2 grade, patient to be independent with HEP for purposes of strengthening. Education of caregiver as necessary and possible LTG Duration 06/14/19 LE ROM deficits Short Term Goal (STG) Instruct in sequential lymphedema ROM exercise program and issue written instructions STG Duration 4 wks [place] Goal (LTG) Improve ROM natacha LE's to WNL, patient to be independent with sequential lymphedema exercises. Education of caregiver as necessary and possible LTG Duration 06/14/19 Lymphedema Impairment lymphedema natacha LE's left greater than right Mcfp Goal (LTG) Decrease lymphedema to stable level (no increase or decrease > 1 cm over the course of 1 wk) and have patient fit with appropriate compression garment/wraps for self- management. Consider pneumatic pump for lymphedema reduction. LTG Duration 06/14/19 Physical Therapy Plan Frequency and Duration Frequency of Treatment 24 visits Duration of Treatment 12 weeks Plan of Care Start Date 10/22/20 Plan of Care End Date 01/21/21 Therapeutic Interventions Therapeutic Interventions Home Exercise Program, Lymphedema Management,Patient/ Caregiver Education,Self-Care/ Home Management,Therapeutic Activities,Therapeutic Exercises Next Visit Focus/Plan Next Note Type Treatment Note Next Visit Plan Assess response to 1Coban to toes right LE. Increased MLD left trunk and proximal LE prior to pump application. Emphasis right LE primarily on compression bandaging and Farrow wrap application, with more time spent on left LE issues.
--- NOTE | 2020-11-06 16:24 | PT.OTN ---
Current Diagnoses Morbid (severe) obesity due to excess calories (11/06/20) Hemiplegia, unspecified affecting left nondominant side (11/06/20) Lymphedema, not elsewhere classified (11/06/20) Local infection of the skin and subcutaneous tissue, unspecified (11/06/20) Non-pressure chronic ulcer of other part of left foot with unspecified severity (11/06/20) Weakness (11/06/20) Physical Therapy Treatment Note PT-OP-A Visit Information Start: 10/22/20 09:00 Freq: Status: Active Protocol: Document 11/06/20 15:55 [facility] (Rec: 11/06/20 16:24 [facility] [id number]) Out-Patient Physical Therapy Visit Information Visit Information Visit Type Treatment Note Visit Start Time 14:30 Visit Stop Time 15:55 Total Visit Minutes 85 Visit Number 7 Evaluation Information Evaluation Date 10/22/20 Precautions Precautions decreased sensation left LE, no active movement left LE, caution with compression PT-OP-B Current Condition Start: 10/22/20 09:00 Freq: Status: Active Protocol: Document 11/01/20 16:58 [facility] (Rec: 11/01/20 17:17 [facility] [id number]) Current Condition History of Current Condition Onset Date 1994 Current Complaints worsening lymphedema left LE greater than right History of Current Condition Patient referred to PT due to worsening lymphedema bilateral LE's left >right by wound care physician. 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 Patient lives alone and is unable to self- bandage or apply compression alternative wraps due to hemiparesis left UE. He has caregivers daily provided by [facility] but caregivers are not trained or allowed to provide wound care or wrap his LE's per his and caregiver's report ; outside caregivers scope of practice. He was previously seen in PT for lymphedema management including MLD, compression wrapping, and lymphedema exercises and was assisted to obtain new compression alternatives. Was discharged from PT approximately 1 year ago due to plateau in progress and his needs being beyond what could be provided in the home; PT and physician had recommended care facility placement for patient to get needed care, patient reports he was willing but couldn't get placement due to pandemic. No current housing case manager, PT will need to talk with interim housing case manager Greer Haney when patient provides contact information. Currently using Compression alternatives on right, going to wound care for left LE, was wrapped with Coban at wound care last session due to left compression alternative wraps at home in process of being washed. States not using his pumps at home because caregivers not allowed to apply them and not able to don . Reports sacral decubiti healed since last seen in PT. Has caregivers who provide housework, bathing, cooking, mobility assistance. As above patient reports caregiver not allowed to assist with any wound care or wrapping of his LE's. (caregivers Gulshan, Jacqueline, Lilliana). States he needs new compression wraps, he expressed willingness to call vendor and get prescription from his doctor. Patient also reports he will get PT the contact information for housing case manager. Complications for any new treatment for lymphedema are his difficulty adhering to treatment plan. Prior Treatments and Tests Prior treatment for LE wounds left LE, sacral decubiti, lymphedema. 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 PT-OP-C Subjective Start: 10/22/20 09:00 Freq: Status: Active Protocol: Document 11/06/20 15:55 [facility] (Rec: 11/06/20 16:24 [facility] [id number]) OP-PT Subjective Patient Comments Patient Comments My PCP's nurse called me and told me to get myself admitted to the ER so I can go to a [facility]. PT-OP-G Mobility & Gait Start: 10/22/20 09:00 Freq: Status: Active Protocol: Document 10/22/20 12:58 [facility] (Rec: 10/23/20 14:33 [facility] [id number]) OP Mobility Evaluation Bed Mobility Rolling max assist Supine to and from Sit max assist Transfers Sit to Stand mod to max assist depending on height of surface Bed to Chair Transfers mod assist with bed elevated Car Transfers stays in wheelchair Floor Transfers unable Wheelchair Management Type of Wheelchair power Assessment Details able to drive w/c independently with candy stick and controls on right side OP Gait Assessment Gait Gait Assistance Required: Moderate Assistance Distance (Feet) 2 Able to Maintain Weight Bearing Status Yes During Gait Assistive Devices Assistive Device Gait Belt Comments Gait Comments patient holds onto caregiver PT-OP-J Posture/Palpation/Skin Start: 10/22/20 09:00 Freq: Status: Active Protocol: Document 10/22/20 12:58 [facility] (Rec: 10/23/20 12:58 [facility] [id number]) Skin Assessment Edema Assessment left leg Edema Appearance Weeping Comments severe lymphedema, elephentiasis left LE with multiple pappillomas, unable to see toes due to extent of lymphedema and fibrotic changes (see photos in chart). Skin severely fibrotic left LE, moderately right LE. PT-OP-N Lymphedema Start: 10/22/20 09:00 Freq: Status: Active Protocol: Document 11/06/20 15:55 [facility] (Rec: 11/06/20 16:24 [facility] [id number]) Lymphedema Measurements Lower Extremity Circumference Measurements Left - Not measured today. PT-OP-Q Treatments Start: 10/22/20 09:00 Freq: Status: Active Protocol: Document 11/06/20 15:55 [facility] (Rec: 11/06/20 16:24 [facility] [id number]) Therapeutic Exercises Supine Exercises abdominal breathing Reps/Minutes 5x4 Therapeutic Activity Therapeutic Activity transfers Name w/c to and from mat table Reps/Minutes 2x Comments ambulated 2' mod assist from caregiver sit to stand x 2 from elevated mat table used in chair mode for ease of getting on and off Lymphedema Treatment Manual Lymphatic Drainage Location trunk, abdominal breathing, left LE Duration 35 Comments Initiated MLD with right trunk and RLE prior to applying pump. Then treated the left trunk and LLE with MLD. application of Lubriderm lotion to RLE for skin care. Lymphedema Wrapping Materials RIGHT: toe wraps, 1Coban over toe wraps for increased compression, Tubigrip size H toes to knee. Tubigrip covered by Farrow wraps foot and lower leg. Left: Mananged by wound care staff today Other Other Use of chair configuration with hi-lo table with yoga mat for comfort, pillow under each LE, legs elevated and lowered at times for patient comfort. 12 box available for patient suport under right LE when table elevated in chair mode PT-OP-R Modalities Start: 10/22/20 09:00 Freq: Status: Active Protocol: Document 11/06/20 15:55 [facility] (Rec: 11/06/20 16:24 AW [id number]) Compression Pump Treatment Treatment Location Left Leg Pressure Amount (mmHg) (mmHG) 50 Inflation Time (Seconds) 45 Deflation Time (Seconds) 15 Treatment Duration (minutes) 50 Treatment Tolerance Good PT-OP-T Assessment and Plan Start: 10/22/20 09:00 Freq: Status: Active Protocol: Document 11/06/20 15:55 [facility] (Rec: 11/06/20 16:24 [facility] [id number]) Physical Therapy Assessment Goals Three Impairment Functional mobility; requires max assist for transfers in and out of bed Short Term Goal (STG) Patient will require only mod assist for transfers in and out of bed STG Duration 12/02/20 Halfway Goal (LTG) Patient will be able to get in and out of bed with min assist LTG Duration 01/21/21 Two Impairment functional weakness, unable to ambulate Short Term Goal (STG) patient will be able to ambulate 10' with mod assist for purposes of ADL's STG Duration 12/02/20 Halfway Goal (LTG) Patient will be able to ambulate 25' with mod assist for short distances household ambulation, assistance with edema reduction, and quality of life LTG Duration 01/21/21 One Impairment lymphedema Rn Home Health Goal (LTG) Decrease and stabilize lymphedema bilateral LE's (no increase or decrease greater than 1 cm over the course of 1 week) and have patient obtain new compression alternative wraps for bilateral LE's. Patient to have adequate assistance in the home to help with donning and doffing compression and using his compression pumps or will work with housing case manager to facilitate better care situation for this patient. LTG Duration 01/21/21 Pain Impairment pain left LE Half[place] Goal (LTG) Decrease pain left LE 50% to improve tolerance for functional mobility LTG Duration 06/14/19 functional mobility Halfway Goal (LTG) Patient to be safe and independent with all household transfers and bed mobility including ability to lift left LE in and out of bed independently. LTG Duration 06/14/19 LE strength deficits Short Term Goal (STG) Initiate LE strengthening exercises Rn Home Health Goal (LTG) Improve LE strength by at least 1/2 grade, patient to be independent with HEP for purposes of strengthening. Education of caregiver as necessary and possible LTG Duration 06/14/19 LE ROM deficits Short Term Goal (STG) Instruct in sequential lymphedema ROM exercise program and issue written instructions STG Duration 4 wks Rn Home Health Goal (LTG) Improve ROM natacha LE's to WNL, patient to be independent with sequential lymphedema exercises. Education of caregiver as necessary and possible LTG Duration 06/14/19 Lymphedema Impairment lymphedema natacha LE's left greater than right Halfway Goal (LTG) Decrease lymphedema to stable level (no increase or decrease > 1 cm over the course of 1 wk) and have patient fit with appropriate compression garment/wraps for self- management. Consider pneumatic pump for lymphedema reduction. LTG Duration 06/14/19 Assessment Summary Assessment Treatment focused on MLD for bilateral lower extremities and wrapping RLE. Pt tolerated LLE compression pump treatment well. Plan to continue coban wrap to right foot for increased distal compression. Physical Therapy Plan Frequency and Duration Frequency of Treatment 24 visits Duration of Treatment 12 weeks Plan of Care Start Date 10/22/20 Plan of Care End Date 01/21/21 Therapeutic Interventions Therapeutic Interventions Home Exercise Program, Lymphedema Management,Patient/ Caregiver Education,Self-Care/ Home Management,Therapeutic Activities,Therapeutic Exercises Next Visit Focus/Plan Next Note Type Treatment Note Next Visit Plan Assess response to 1Coban to toes right LE. Continue increased MLD left trunk and proximal LE prior to pump application. Emphasis right LE primarily on compression bandaging and Farrow wrap application, with more time spent on left LE issues.
--- NOTE | 2020-11-08 16:01 | PT.OTN ---
Current Diagnoses Morbid (severe) obesity due to excess calories (11/08/20) Hemiplegia, unspecified affecting left nondominant side (11/08/20) Lymphedema, not elsewhere classified (11/08/20) Local infection of the skin and subcutaneous tissue, unspecified (11/08/20) Non-pressure chronic ulcer of other part of left foot with unspecified severity (11/08/20) Weakness (11/08/20) Physical Therapy Treatment Note PT-OP-A Visit Information Start: 10/22/20 09:00 Freq: Status: Active Protocol: Document 11/08/20 14:29 [facility] (Rec: 11/08/20 14:44 [facility] [id number]) Out-Patient Physical Therapy Visit Information Visit Information Visit Type Treatment Note Visit Start Time 14:30 Visit Stop Time 15:24 Total Visit Minutes 54 Visit Number 8 Evaluation Information Evaluation Date 10/22/20 Precautions Precautions decreased sensation left LE, no active movement left LE, caution with compression PT-OP-B Current Condition Start: 10/22/20 09:00 Freq: Status: Active Protocol: Document 11/01/20 16:58 [facility] (Rec: 11/01/20 17:17 [facility] [id number]) Current Condition History of Current Condition Onset Date 1994 Current Complaints worsening lymphedema left LE greater than right History of Current Condition Patient referred to PT due to worsening lymphedema bilateral LE's left >right by wound care physician. 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 Patient lives alone and is unable to self- bandage or apply compression alternative wraps due to hemiparesis left UE. He has caregivers daily provided by [facility] but caregivers are not trained or allowed to provide wound care or wrap his LE's per his and caregiver's report ; outside caregivers scope of practice. He was previously seen in PT for lymphedema management including MLD, compression wrapping, and lymphedema exercises and was assisted to obtain new compression alternatives. Was discharged from PT approximately 1 year ago due to plateau in progress and his needs being beyond what could be provided in the home; PT and physician had recommended care facility placement for patient to get needed care, patient reports he was willing but couldn't get placement due to pandemic. No current therapeutic case manager, PT will need to talk with interim therapeutic case manager Greer Haney when patient provides contact information. Currently using Compression alternatives on right, going to wound care for left LE, was wrapped with Coban at wound care last session due to left compression alternative wraps at home in process of being washed. States not using his pumps at home because caregivers not allowed to apply them and not able to don . Reports sacral decubiti healed since last seen in PT. Has caregivers who provide housework, bathing, cooking, mobility assistance. As above patient reports caregiver not allowed to assist with any wound care or wrapping of his LE's. (caregivers Gulshan, Jacqueline, Lilliana). States he needs new compression wraps, he expressed willingness to call vendor and get prescription from his doctor. Patient also reports he will get PT the contact information for therapeutic case manager. Complications for any new treatment for lymphedema are his difficulty adhering to treatment plan. Prior Treatments and Tests Prior treatment for LE wounds left LE, sacral decubiti, lymphedema. 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 PT-OP-C Subjective Start: 10/22/20 09:00 Freq: Status: Active Protocol: Document 11/08/20 14:29 [facility] (Rec: 11/08/20 15:59 [facility] [id number]) OP-PT Subjective Patient Comments Patient Comments Patient reports he saw Dr. Laird yesterday, arrives with prescription for lymphedema wraps. PT-OP-G Mobility & Gait Start: 10/22/20 09:00 Freq: Status: Active Protocol: Document 10/22/20 12:58 [facility] (Rec: 10/23/20 14:33 [facility] [id number]) OP Mobility Evaluation Bed Mobility Rolling max assist Supine to and from Sit max assist Transfers Sit to Stand mod to max assist depending on height of surface Bed to Chair Transfers mod assist with bed elevated Car Transfers stays in wheelchair Floor Transfers unable Wheelchair Management Type of Wheelchair power Assessment Details able to drive w/c independently with candy stick and controls on right side OP Gait Assessment Gait Gait Assistance Required: Moderate Assistance Distance (Feet) 2 Able to Maintain Weight Bearing Status Yes During Gait Assistive Devices Assistive Device Gait Belt Comments Gait Comments patient holds onto caregiver PT-OP-J Posture/Palpation/Skin Start: 10/22/20 09:00 Freq: Status: Active Protocol: Document 10/22/20 12:58 [facility] (Rec: 10/23/20 12:58 [facility] [id number]) Skin Assessment Edema Assessment left leg Edema Appearance Weeping Comments severe lymphedema, elephentiasis left LE with multiple pappillomas, unable to see toes due to extent of lymphedema and fibrotic changes (see photos in chart). Skin severely fibrotic left LE, moderately right LE. PT-OP-N Lymphedema Start: 10/22/20 09:00 Freq: Status: Active Protocol: Document 11/06/20 15:55 [facility] (Rec: 11/06/20 16:24 [facility] [id number]) Lymphedema Measurements Lower Extremity Circumference Measurements Left - Not measured today. PT-OP-Q Treatments Start: 10/22/20 09:00 Freq: Status: Active Protocol: Document 11/08/20 14:29 [facility] (Rec: 11/08/20 14:44 [facility] [id number]) Lymphedema Treatment Manual Lymphatic Drainage Location trunk, abdominal breathing, left LE Duration 35 Comments Initiated MLD with right trunk and RLE prior to applying pump. Then treated the left trunk and LLE with MLD. application of Lubriderm lotion to RLE for skin care. Lymphedema Wrapping Materials RIGHT: toe wraps, 1Coban over toe wraps for increased compression, Tubigrip size H toes to knee. Tubigrip covered by Farrow wraps foot and lower leg. Left: Mananged by wound care staff today Other Other Use of chair configuration with hi-lo table with yoga mat for comfort, pillow under each LE, legs elevated and lowered at times for patient comfort. 12 box available for patient suport under right LE when table elevated in chair mode PT-OP-R Modalities Start: 10/22/20 09:00 Freq: Status: Active Protocol: Document 11/08/20 14:29 [facility] (Rec: 11/08/20 14:44 [facility] [id number]) Compression Pump Treatment Treatment Location Left Leg Pressure Amount (mmHg) (mmHG) 50 Inflation Time (Seconds) 45 Deflation Time (Seconds) 15 Treatment Duration (minutes) 50 Treatment Tolerance Good PT-OP-T Assessment and Plan Start: 10/22/20 09:00 Freq: Status: Active Protocol: Document 11/08/20 14:29 [facility] (Rec: 02/11/21 14:44 [facility] [id number]) Physical Therapy Assessment Goals Three Impairment Functional mobility; requires max assist for transfers in and out of bed Short Term Goal (STG) Patient will require only mod assist for transfers in and out of bed STG Duration 12/02/20 Mold Machine Operator Goal (LTG) Patient will be able to get in and out of bed with min assist LTG Duration 01/21/21 Two Impairment functional weakness, unable to ambulate Short Term Goal (STG) patient will be able to ambulate 10' with mod assist for purposes of ADL's STG Duration 12/02/20 Mold Machine Operator Goal (LTG) Patient will be able to ambulate 25' with mod assist for short distances household ambulation, assistance with edema reduction, and quality of life LTG Duration 01/21/21 One Impairment lymphedema Mold Machine Operator Goal (LTG) Decrease and stabilize lymphedema bilateral LE's (no increase or decrease greater than 1 cm over the course of 1 week) and have patient obtain new compression alternative wraps for bilateral LE's. Patient to have adequate assistance in the home to help with donning and doffing compression and using his compression pumps or will work with therapeutic case manager to facilitate better care situation for this patient. LTG Duration 01/21/21 Pain Impairment pain left LE Mold Machine Operator Goal (LTG) Decrease pain left LE 50% to improve tolerance for functional mobility LTG Duration 06/14/19 functional mobility Mold Machine Operator Goal (LTG) Patient to be safe and independent with all household transfers and bed mobility including ability to lift left LE in and out of bed independently. LTG Duration 06/14/19 LE strength deficits Short Term Goal (STG) Initiate LE strengthening exercises Alf Goal (LTG) Improve LE strength by at least 1/2 grade, patient to be independent with HEP for purposes of strengthening. Education of caregiver as necessary and possible LTG Duration 06/14/19 LE ROM deficits Short Term Goal (STG) Instruct in sequential lymphedema ROM exercise program and issue written instructions STG Duration 4 wks Mold Machine Operator Goal (LTG) Improve ROM natacha LE's to WNL, patient to be independent with sequential lymphedema exercises. Education of caregiver as necessary and possible LTG Duration 06/14/19 Lymphedema Impairment lymphedema natacha LE's left greater than right Alf Goal (LTG) Decrease lymphedema to stable level (no increase or decrease > 1 cm over the course of 1 wk) and have patient fit with appropriate compression garment/wraps for self- management. Consider pneumatic pump for lymphedema reduction. LTG Duration 06/14/19 Assessment Summary Assessment Lymphedema right LE stable, continues to improve in toes with use of Coban wraps over elastic gauze wraps. Left LE lymphedema persists with high risk of cellulitis again, difficulty getting any compression to stay intact over knee or thigh on left, and exhibiting redness proximal lower leg on left today. Measurements not able to be taken left as patient reported getting too uncomfortable and requested wound care do dressing change so he could get off of treatment table. Swelling appeared minimally changed on left. Did find extra elasticized straps to allow Farrow wrap for foot to be applied on left today. Due to home situation, patient continues to not receive adequate care for his lymphedema in the home, not able to be rewrapped or pump his left LE due to beyond the scope of his caregivers. Feel he would benefit from hospital admission to improve his wound and evaluate possible new wound on buttocks , and refer for care center placement so patient can get the medical care he needs. Prescription for compression wraps had incorrect name so called Dr. Laird's office to advise him that the name of the wraps is Farrow (not Farcus as written on the prescription). Physical Therapy Plan Frequency and Duration Frequency of Treatment 24 visits Duration of Treatment 12 weeks Plan of Care Start Date 10/22/20 Plan of Care End Date 01/21/21 Therapeutic Interventions Therapeutic Interventions Home Exercise Program, Lymphedema Management,Patient/ Caregiver Education,Self-Care/ Home Management,Therapeutic Activities,Therapeutic Exercises Next Visit Focus/Plan Next Note Type Treatment Note Next Visit Plan Continue lymphedema management per POC, emphasis on problem- solving compression at knee and thigh on left.
--- NOTE | 2020-11-12 10:31 | PT-OP ANOTE ---
Patient left phone message that he has been admitted to [facility], and is anticipating a discharge to a SNF. Cancelled appointments for this week and sylvia let us know whether to discharge when he knows his disposition from hospital.
--- NOTE | 2020-12-13 13:57 | PT.OPDS ---
Current Diagnoses Morbid (severe) obesity due to excess calories (11/08/20) Hemiplegia, unspecified affecting left nondominant side (11/08/20) Lymphedema, not elsewhere classified (11/08/20) Local infection of the skin and subcutaneous tissue, unspecified (11/08/20) Non-pressure chronic ulcer of other part of left foot with unspecified severity (11/08/20) Weakness (11/08/20) Visit Care Team Role Provider Type Rayray Laird MD Attending Provider Non-Staff Primary Care Provider Referring Provider Specialty: Family Practice Address: [address] [place] [address] Email: Visit Number Visit Number 8 Discharge Summary PT-OP-B Current Condition Start: 10/22/20 09:00 Freq: Status: Active Protocol: Document 11/01/20 16:58 [facility] (Rec: 11/01/20 17:17 [facility] [id number]) Current Condition History of Current Condition Onset Date 1994 Current Complaints worsening lymphedema left LE greater than right History of Current Condition Patient referred to PT due to worsening lymphedema bilateral LE's left >right by wound care physician. 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 Patient lives alone and is unable to self- bandage or apply compression alternative wraps due to hemiparesis left UE. He has caregivers daily provided by [facility] but caregivers are not trained or allowed to provide wound care or wrap his LE's per his and caregiver's report ; outside caregivers scope of practice. He was previously seen in PT for lymphedema management including MLD, compression wrapping, and lymphedema exercises and was assisted to obtain new compression alternatives. Was discharged from PT approximately 1 year ago due to plateau in progress and his needs being beyond what could be provided in the home; PT and physician had recommended care facility placement for patient to get needed care, patient reports he was willing but couldn't get placement due to pandemic. No current correctional counselor/case manager, PT will need to talk with interim correctional counselor/case manager Greer Haney when patient provides contact information. Currently using Compression alternatives on right, going to wound care for left LE, was wrapped with Coban at wound care last session due to left compression alternative wraps at home in process of being washed. States not using his pumps at home because caregivers not allowed to apply them and not able to don . Reports sacral decubiti healed since last seen in PT. Has caregivers who provide housework, bathing, cooking, mobility assistance. As above patient reports caregiver not allowed to assist with any wound care or wrapping of his LE's. (caregivers Gulshan, Jacqueline, Lilliana). States he needs new compression wraps, he expressed willingness to call vendor and get prescription from his doctor. Patient also reports he will get PT the contact information for correctional counselor/case manager. Complications for any new treatment for lymphedema are his difficulty adhering to treatment plan. Prior Treatments and Tests Prior treatment for LE wounds left LE, sacral decubiti, lymphedema. 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 PT-OP-C Subjective Start: 10/22/20 09:00 Freq: Status: Active Protocol: Document 11/08/20 14:29 [facility] (Rec: 11/08/20 15:59 [facility] [id number]) OP-PT Subjective Patient Comments Patient Comments Patient reports he saw Dr. Laird yesterday, arrives with prescription for lymphedema wraps. PT-OP-G Mobility & Gait Start: 10/22/20 09:00 Freq: Status: Active Protocol: Document 10/22/20 12:58 [facility] (Rec: 10/23/20 14:33 [facility] [id number]) OP Mobility Evaluation Bed Mobility Rolling max assist Supine to and from Sit max assist Transfers Sit to Stand mod to max assist depending on height of surface Bed to Chair Transfers mod assist with bed elevated Car Transfers stays in wheelchair Floor Transfers unable Wheelchair Management Type of Wheelchair power Assessment Details able to drive w/c independently with candy stick and controls on right side OP Gait Assessment Gait Gait Assistance Required: Moderate Assistance Distance (Feet) 2 Able to Maintain Weight Bearing Status Yes During Gait Assistive Devices Assistive Device Gait Belt Comments Gait Comments patient holds onto caregiver PT-OP-J Posture/Palpation/Skin Start: 10/22/20 09:00 Freq: Status: Active Protocol: Document 10/22/20 12:58 [facility] (Rec: 10/23/20 12:58 [facility] [id number]) Skin Assessment Edema Assessment left leg Edema Appearance Weeping Comments severe lymphedema, elephentiasis left LE with multiple pappillomas, unable to see toes due to extent of lymphedema and fibrotic changes (see photos in chart). Skin severely fibrotic left LE, moderately right LE. PT-OP-N Lymphedema Start: 10/22/20 09:00 Freq: Status: Active Protocol: Document 11/06/20 15:55 [facility] (Rec: 11/06/20 16:24 [facility] [id number]) Lymphedema Measurements Lower Extremity Circumference Measurements Left - Not measured today. PT-OP-T Assessment and Plan Start: 10/22/20 09:00 Freq: Status: Active Protocol: Document 12/13/20 13:56 [facility] (Rec: 12/13/20 13:57 [facility] [id number]) Physical Therapy Assessment Assessment Summary Assessment Goals not achieved due to admission to SNF Physical Therapy Plan Discharge Physical Therapy Discharge Comments patient admitted to SNF for skilled care due to wound not healing, need for higher level of care, not able to care for himself.
== END 2020-12-21 10:21 ==
LOC: PHYS 14:30
PROVIDERS: PCP Family Medicine; Referring Provider Family Medicine; Visit Provider Family Medicine
DX: I89.0 Lymphedema, not elsewhere classified (principal); E66.01 Morbid (severe) obesity due to excess calories; L08.9 Local infection of the skin and subcutaneous tissue, unspecified; L97.529 Non-pressure chronic ulcer of other part of left foot with unspecified severity; R53.1 Weakness; G81.94 Hemiplegia, unspecified affecting left nondominant side
CPT/HCPCS: 97016; 97110; 97140; 97163; 97530; 97535

== ENCOUNTER → 2020-11-08 14:51 | Outpatient (CLI) | payer MEDICARE, MEDICAID, SELFPAY | PROVIDERS: PCP Family Medicine; Referring Provider Family Medicine; Visit Provider Family Medicine | DX: I89.0 Lymphedema, not elsewhere classified (principal); R60.0 Localized edema | CPT/HCPCS: 29581 ==

== ENCOUNTER → 2020-12-12 14:34 | Outpatient (CLI) | payer MEDICARE, MEDICAID, SELFPAY | PROVIDERS: PCP Family Medicine; Referring Provider Family Medicine; Visit Provider Family Medicine | DX: I89.0 Lymphedema, not elsewhere classified (principal); L97.521 Non-pressure chronic ulcer of other part of left foot limited to breakdown of skin; E11.622 Type 2 diabetes mellitus with other skin ulcer; F12.90 Cannabis use, unspecified, uncomplicated | CPT/HCPCS: 99213; 99214 ==

== ENCOUNTER → 2020-12-20 16:06 | Outpatient (CLI) | payer MEDICARE, MEDICAID, SELFPAY | PROVIDERS: PCP Family Medicine; Referring Provider Family Medicine; Visit Provider Family Medicine | DX: I89.0 Lymphedema, not elsewhere classified (principal); L97.521 Non-pressure chronic ulcer of other part of left foot limited to breakdown of skin; R60.0 Localized edema | CPT/HCPCS: 99212; 99213 ==

== ENCOUNTER → 2020-12-26 16:10 | Outpatient (CLI) | payer MEDICARE, MEDICAID, SELFPAY | PROVIDERS: PCP Family Medicine; Referring Provider Family Medicine; Visit Provider Family Medicine | DX: I89.0 Lymphedema, not elsewhere classified (principal); L97.521 Non-pressure chronic ulcer of other part of left foot limited to breakdown of skin; R60.0 Localized edema | CPT/HCPCS: 99212 ==

== ENCOUNTER → 2021-01-08 13:27 | Outpatient (CLI) | payer MEDICARE, MEDICAID, SELFPAY | PROVIDERS: PCP Family Medicine; Referring Provider Family Medicine; Visit Provider Family Medicine | DX: I89.0 Lymphedema, not elsewhere classified (principal); L97.521 Non-pressure chronic ulcer of other part of left foot limited to breakdown of skin; R60.0 Localized edema | CPT/HCPCS: 99213 ==

== ENCOUNTER → 2021-01-22 13:56 | Outpatient (CLI) | payer MEDICARE, MEDICAID, SELFPAY | PROVIDERS: PCP Family Medicine; Referring Provider Family Medicine; Visit Provider Family Medicine | DX: I89.0 Lymphedema, not elsewhere classified (principal); L97.521 Non-pressure chronic ulcer of other part of left foot limited to breakdown of skin | CPT/HCPCS: 99213 ==

== ENCOUNTER → 2021-02-05 15:21 | Outpatient (CLI) | payer MEDICARE, MEDICAID, SELFPAY | PROVIDERS: PCP Family Medicine; Referring Provider Family Medicine; Visit Provider Family Medicine | DX: I89.0 Lymphedema, not elsewhere classified (principal) | CPT/HCPCS: 99213; 99214 ==

== ENCOUNTER → 2021-09-05 12:55 | Outpatient (CLI) | payer MEDICARE, MEDICAID, SELFPAY | PROVIDERS: Family Provider Family Medicine; PCP Family Medicine; Referring Provider Family Medicine; Visit Provider Family Medicine | DX: I89.0 Lymphedema, not elsewhere classified (principal); L97.521 Non-pressure chronic ulcer of other part of left foot limited to breakdown of skin; L08.9 Local infection of the skin and subcutaneous tissue, unspecified; B35.3 Tinea pedis; R60.0 Localized edema; E11.628 Type 2 diabetes mellitus with other skin complications; I69.354 Hemiplegia and hemiparesis following cerebral infarction affecting left non-dominant side; E66.01 Morbid (severe) obesity due to excess calories; Z68.43 Body mass index [BMI] 50.0-59.9, adult; Z74.09 Other reduced mobility | CPT/HCPCS: 87070; 87077; 87102; 87147; 87186; 87205; 99213; 99214 ==

== ENCOUNTER → 2021-09-12 14:00 | Outpatient (CLI) | payer MEDICARE, MEDICAID, SELFPAY | PROVIDERS: Family Provider Family Medicine; PCP Family Medicine; Referring Provider Family Medicine; Visit Provider Family Medicine | DX: I89.0 Lymphedema, not elsewhere classified (principal); L97.521 Non-pressure chronic ulcer of other part of left foot limited to breakdown of skin; L97.512 Non-pressure chronic ulcer of other part of right foot with fat layer exposed; L08.9 Local infection of the skin and subcutaneous tissue, unspecified; B35.3 Tinea pedis; R60.0 Localized edema; E11.628 Type 2 diabetes mellitus with other skin complications; E66.01 Morbid (severe) obesity due to excess calories; I69.354 Hemiplegia and hemiparesis following cerebral infarction affecting left non-dominant side; Z68.43 Body mass index [BMI] 50.0-59.9, adult; Z74.09 Other reduced mobility; Z79.84 Long term (current) use of oral hypoglycemic drugs | CPT/HCPCS: 11042; 97597; 99214 ==

== ENCOUNTER → 2021-10-02 14:21 | Outpatient (CLI) | payer MEDICARE, MEDICAID, SELFPAY | PROVIDERS: Family Provider Family Medicine; PCP Family Medicine; Referring Provider Family Medicine; Visit Provider Family Medicine | DX: I89.0 Lymphedema, not elsewhere classified (principal) | CPT/HCPCS: 99213; 99214 ==

== ENCOUNTER 2021-11-26 14:30 | Outpatient (RCR) | payer MEDICARE, MEDICAID, SELFPAY ==
--- NOTE | 2021-07-03 14:15 | PT.OIE ---
Current Diagnoses Obesity, unspecified (07/03/21) Hemiplegia and hemiparesis following cerebral infarction affecting left non-dominant side (07/03/21) Lymphedema, not elsewhere classified (07/03/21) Weakness (07/03/21) Past Medical History (Last Reviewed 06/27/20 @ 13:05 by Dago Wayne MD) Asthma Chronic acquired lymphedema HTN (hypertension) Hyperlipidemia Morbid obesity with body mass index (BMI) of 40.0 to 49.9 Obstructive sleep apnea (04/03/20) Visit Care Team Role Provider Type Rayray Laird MD Attending Provider Non-Staff Primary Care Provider Referring Provider Specialty: [facility] Practice Address: [address] [place] [address] Email: Physical Therapy Initial Evaluation PT-OP-A Visit Information Start: 06/27/21 16:44 Freq: Status: Active Protocol: Document 07/03/21 14:15 SAK (Rec: 07/03/21 14:54 SAK [id number]) Out-Patient Physical Therapy Visit Information Visit Information Visit Type Treatment Note Visit Start Time 14:25 Visit Stop Time 16:00 Total Visit Minutes 95 Visit Number 1 Number of DINNER COOK Visits 0 Evaluation Information Evaluation Date 07/03/21 Precautions Precautions prior CVA PT-OP-B Current Condition Start: 06/27/21 16:44 Freq: Status: Active Protocol: Document 07/03/21 14:15 SAK (Rec: 07/03/21 14:54 SAK [id number]) Current Condition History of Current Condition Onset Date 1994 Current Complaints lymphedema bilateral LE's left greater than right History of Current Condition Patient referred to PT for continued lymphedema management natacha LE's. Patient previously seen for lymphedema care and was also seen in wound care department. Patient has complicated history of lymphedema which started after he had CVA in 1994 resulting in left sided hemiparesis causing severly limited mobiity including use of power wheelchair for all mobility except short shuffling steps primarily during transfers. Patient lives alone and is unable to self-bandage or apply compressio alternative wraps ( Farrow wraps) due to hemiparesis. Has had sacral and LE wounds. Due to non- healing LE wounds and lack of ability to care for himself in the home back in November 2020, and not having skilled caregivers to help him manage, he was adminitted to SNF for 89 days. Was in [facility] in [place] for 89 days, went home Feb 10 2021 after wounds healed. To PT with caregiver Verona who is more experienced with bandaging but struggles with patient limited supplies. Reports now wound leaking again. Caregiver states in SNF Coban was being used to help manage the edema and wound but that they don't have that in the home, sister tries to help him purchase bandaging supplies but isn't always able to help. Caregiver uses what ever supplies [facility] has. Compression Farrow wraps on thighs don't allow for safe transfers due to bulk so not wearing. Also reports doesn't have full set of Farrow wraps , didn't receive prior to leaving SNF. Working to get bandages paid for but insurance denies due to no wound. Patient today wearing Farrow wraps on lower legs only; no foot or thigh components, and reports while in SNF minimal physical activity and feels weaker as well. Prior Treatments and Tests wound care SNF admission 89 days Future Testing and Treatments Planned Sees Dr. Laird next week Treatment Goals Patient/Caregiver Goals decrease his LE lymphedema, obtain appropriate compression wraps, improve strength and mobility Prior Functional Status Baseline Function- ADL's Needs Assist Baseline Function- Mobility Needs Assist Baseline Function- Gait able to ambulate up to 15 ft Baseline Function- Work/School disabled Baseline Function- Recreation/Hobbies TV, baseball team [employer] Current Functional Impairments (Reported) Functional Limitations- ADL's needs max assist Functional Limitations- Mobility/Gait needs max assist Functional Limitations- Work/School ambulates with physical assist no more than 5 ft for transfers Personal Factors Other Personal Factors That May Effect Compliance with self-care Therapy/Recovery PT-OP-C Subjective Start: 06/27/21 16:44 Freq: Status: Active Protocol: Document 07/03/21 14:15 [facility] (Rec: 07/03/21 17:36 [facility] [id number]) Patient Questionnaires Lymphedema Life Impact Score Lymphedema Score 88 OP-PT Pain Assessment Location natacha LE's Intensity 6 PT-OP-D Balance Start: 06/27/21 16:44 Freq: Status: Active Protocol: Document 07/03/21 14:15 [facility] (Rec: 07/03/21 17:36 [facility] [id number]) OP-PT Balance Assessment Sitting Balance Static Sitting Balance Ability Fair Standing Balance Static Standing Balance Ability Poor Dynamic Standing Balance Ability Poor Villafana Fall Scale Copyright Permission PT-OP-G Mobility & Gait Start: 06/27/21 16:44 Freq: Status: Active Protocol: Document 07/03/21 14:15 [facility] (Rec: 07/03/21 17:36 [facility] [id number]) OP Mobility Evaluation Bed Mobility Rolling max assist Supine to and from Sit max assist Transfers Sit to Stand mod assist from elevated surface Bed to Chair Transfers mod assist from elevated surface, shuffling steps Car Transfers stays in w/c; transportation via w/c van Wheelchair Management Type of Wheelchair power chair Assessment Details able to drive independently. Unable to manage legrests or get leg onto leg rest; requires mod to mad assist PT-OP-J Posture/Palpation/Skin Start: 06/27/21 16:44 Freq: Status: Active Protocol: Document 07/03/21 14:15 [facility] (Rec: 07/03/21 17:36 [facility] [id number]) Skin Assessment Edema Assessment natacha LE's Edema Appearance Open Sores,Puffy Comments Lymphedema bilateral LE's left greater than right with papillomas, hyperkeratosis and elephentiasis and brownish discoloration on thighs and calves. End of left foot moist and odorous with soft white tissue, mild amount of drainage with prior wound opening up. PT-OP-N Lymphedema Start: 06/27/21 16:44 Freq: Status: Active Protocol: Document 07/03/21 14:15 [facility] (Rec: 07/03/21 17:36 [facility] [id number]) Lymphedema Measurements Lower Extremity Circumference Measurements Right Affected MT Heads 32 cm Mid-foot 34.2 cm Medial Malleolus 31 cm 10 cm From Medial Malleolus 45.6 cm 20 cm From Medial Malleolus 56 cm 30 cm From Medial Malleolus 60.2 cm 40 cm From Medial Malleolus 67.2 cm 50 cm From Medial Malleolus 78.8 cm Knee Joint 61.4 cm Left Affected MT Heads 35 cm Mid-foot 38.4 cm Medial Malleolus 36.4 cm 10 cm From Medial Malleolus 56.4 cm 20 cm From Medial Malleolus 62.2 cm 30 cm From Medial Malleolus 63.4 cm 40 cm From Medial Malleolus 62.1 cm 50 cm From Medial Malleolus 75.7 cm 60 cm From Medial Malleolus 83.2 cm Knee Joint 60.4 cm PT-OP-Q Treatments Start: 06/27/21 16:44 Freq: Status: Active Protocol: Document 07/03/21 14:15 [facility] (Rec: 07/03/21 17:36 [facility] [id number]) Lymphedema Treatment Lymphedema Wrapping Body Location bilateral LE's Materials Absorbant dressing distal left foot, Tricofix size G natacha ( size H next time for left), elastic gauze toe wraps right (unable on left as excess tissue covers toes and requires end of foot to be wrapped together). Artiflex, Comprilan, Coban, on left foot , calf, and thigh, Farrow wrap lower leg component. On right Artiflex, Comprilan foot to below knee, then Farrow wrap lower leg component. Patient Education Compression Garments PT to contact care center, physician, foster care case manager regarding Farrow wraps PT-OP-T Assessment and Plan Start: 06/27/21 16:44 Freq: Status: Active Protocol: Document 07/03/21 14:15 [facility] (Rec: 07/08/21 08:38 [facility] [id number]) Physical Therapy Assessment Rehab Potential Rehabilitation Potential Fair Evaluation Complexity Number of Personal Factors/Comorbidities 3 or More Number of Body Systems Impaired 4 or More Clinical Presentation at Evaluation Unstable Impairments Impairments Edema,Functional Mobility, Strength Goals Three Impairment weakness Impairment Max assist bed mobility, mod assist transfers, no ability to ambulate at this time. Carbon Brush Maker Goal (LTG) Patient will be independent with assistance of caregiver with HEP for purposes of facilitation of lymphatic flow and for full body strengthening to improve his lymphedema and overal functional independence LTG Duration 10/06/21 Two Impairment functional mobility Impairment Patient requires increased level of assistance for mobility: max assist bed, mod assist transfers and limited to transfers only instead of short distance ambulation Short Term Goal (STG) Patient will be able to ambulate 10' with mod assistance for purposes of ADL 's in the home STG Duration 08/18/21 Carbon Brush Maker Goal (LTG) Patient able to move in bed with mod assist, transfer sit to stand with min assist and ambulate 25 ft with min to mod assist of caregiver for short household distance household ambulation, assistance with edema reduction, and quality of life LTG Duration 10/01/21 One Impairment lymphedema bilateral LE's left greater than right Correction Goal (LTG) Decrease lymphedema to stable level (no increase or decrease greater than 1 cm over the course of 1 week), patient and caregiver to be independent with self-management of lymphedema to include sequential lymphedema exercises, MLD, skin care, and compression bandaging. Patient will have appropriate supplies for long- term management of compression needs. LTG Duration 10/01/21 Assessment Summary Assessment Patient presents to [facility] persistent lymphedema bilateral LE's left greater than right with papillomas, hyperkeratosis, elephentiasis , and brownish discoloration on thighs and calves. This patient has long history of lymphedema s/p CVA affecting left LE. He most recently in the spring of this year had a 2 month long-term stay due to nonhealing wound at the end of his left foot. He reports this healed while at the long-term and despite recommendations from multiple health professionals and history of poor ability to manage his health needs at home, he was discharged home. Today the end of left foot moist and odorous with soft white tissue, mild amount of drainage with prior wound appearing to be opening up. Recommend referral to wound care. Patient states he basically stayed in bed the whole time he was in the long-term and has c/o decline in function; previously able to park wheelchair outside treatment room and walk in, today requested bringing power wheelchair into room close to treatment table for transfer only. Patient has caregiver currently who is highly attentive and appears more skilled in lymphedema bandaging. Patient reports new Farrow wraps were ordered for him while in the long-term but he only came home with lower leg components; no foot, knee or thigh wraps. He states he has been unsuccessful in working with long-term to obtain the wraps and doesn't know who they were ordered through. Patient and caregiver also reports difficulty with having enough supplies for bandaging ; insurance doesn't pay. He would benefit from physical therapy for lymphedema management to include skin care, manual lymphatic drainage, use of sequential pneumatic pump, lymphedema bandaging, and sequential lymphedema exercises, and if time permits use of seated stepper for facilitation of lymphatic flow and strengthening. Physical Therapy Plan Frequency and Duration Frequency of Treatment 20 visits Duration of Treatment 12 weeks Plan of Care Start Date 10/06/21 Plan of Care End Date 10/06/21 Other Referrals/Consults Referrals/Consults Recommended Recommend wound care consult PT to contact long-term regarding Farrow wraps, and foster care case manager regarding bandaging supplies Next Visit Focus/Plan Next Note Type Treatment Note Next Visit Plan Continue lymphedema management with sequential pneumatic pump to left LE, proximal MLD, therapeutic exercise, bilateral bandaging of LE's; right LE toes to knee (per patient request for mobility needs, and left from toes to upper thigh.
--- NOTE | 2021-07-03 14:15 | PT.OPPOC ---
Physical, Occupational & Speech Therapy At [facility] Current Diagnoses Obesity, unspecified (07/03/21) Hemiplegia and hemiparesis following cerebral infarction affecting left non-dominant side (07/03/21) Lymphedema, not elsewhere classified (07/03/21) Weakness (07/03/21) Visit Care Team Role Provider Type Rayray Laird MD Attending Provider Non-Staff Primary Care Provider Referring Provider Specialty: Family Practice Address: [address] [place] [address], [facility] Email: Plan Of Care PT-OP-T Assessment and Plan Start: 06/27/21 16:44 Freq: Status: Active Protocol: Document 07/03/21 14:15 THADDEUS (Rec: 07/08/21 08:38 SAK [id number]) Physical Therapy Assessment Rehab Potential Rehabilitation Potential Fair Evaluation Complexity Number of Personal Factors/Comorbidities 3 or More Number of Body Systems Impaired 4 or More Clinical Presentation at Evaluation Unstable Impairments Impairments Edema,Functional Mobility, Strength Goals Three Impairment weakness Impairment Max assist bed mobility, mod assist transfers, no ability to ambulate at this time. Usp Goal (LTG) Patient will be independent with assistance of caregiver with HEP for purposes of facilitation of lymphatic flow and for full body strengthening to improve his lymphedema and overal functional independence LTG Duration 10/06/21 Two Impairment functional mobility Impairment Patient requires increased level of assistance for mobility: max assist bed, mod assist transfers and limited to transfers only instead of short distance ambulation Short Term Goal (STG) Patient will be able to ambulate 10' with mod assistance for purposes of ADL 's in the home STG Duration 08/18/21 Usp Goal (LTG) Patient able to move in bed with mod assist, transfer sit to stand with min assist and ambulate 25 ft with min to mod assist of caregiver for short household distance household ambulation, assistance with edema reduction, and quality of life LTG Duration 10/01/21 One Impairment lymphedema bilateral LE's left greater than right Overhead Crane Inspector Goal (LTG) Decrease lymphedema to stable level (no increase or decrease greater than 1 cm over the course of 1 week), patient and caregiver to be independent with self-management of lymphedema to include sequential lymphedema exercises, MLD, skin care, and compression bandaging. Patient will have appropriate supplies for long- term management of compression needs. LTG Duration 10/01/21 Assessment Summary Assessment Patient presents to PT [facility] persistent lymphedema bilateral LE's left greater than right with papillomas, hyperkeratosis, elephentiasis , and brownish discoloration on thighs and calves. This patient has long history of lymphedema s/p CVA affecting left LE. He most recently in the spring of this year had a 2 month [facility] stay due to nonhealing wound at the end of his left foot. He reports this healed while at the [place] [facility] and despite recommendations from multiple health professionals and history of poor ability to manage his health needs at home, he was discharged home. Today the end of left foot moist and odorous with soft white tissue, mild amount of drainage with prior wound appearing to be opening up. Recommend referral to wound care. Patient states he basically stayed in bed the whole time he was in the [place] [facility] and has c/o decline in function; previously able to park wheelchair outside treatment room and walk in, today requested bringing power wheelchair into room close to treatment table for transfer only. Patient has caregiver currently who is highly attentive and appears more skilled in lymphedema bandaging. Patient reports new Farrow wraps were ordered for him while in the [place] [facility] but he only came home with lower leg components; no foot, knee or thigh wraps. He states he has been unsuccessful in working with [facility] to obtain the wraps and doesn't know who they were ordered through. Patient and caregiver also reports difficulty with having enough supplies for bandaging ; insurance doesn't pay. He would benefit from physical therapy for lymphedema management to include skin care, manual lymphatic drainage, use of sequential pneumatic pump, lymphedema bandaging, and sequential lymphedema exercises, and if time permits use of seated stepper for facilitation of lymphatic flow and strengthening. Physical Therapy Plan Frequency and Duration Frequency of Treatment 20 visits Duration of Treatment 12 weeks Plan of Care Start Date 07/03/21 Plan of Care End Date 10/06/21 Other Referrals/Consults Referrals/Consults Recommended Recommend wound care consult PT to contact [place] [facility] regarding Farrow wraps, and counseling case manager regarding bandaging supplies Next Visit Focus/Plan Next Note Type Treatment Note Next Visit Plan Continue lymphedema management with sequential pneumatic pump to left LE, proximal MLD, therapeutic exercise, bilateral bandaging of LE's; right LE toes to knee (per patient request for mobility needs, and left from toes to upper thigh. Plan of Care Dates Plan of Care Start Date 07/03/21 Plan of Care End Date 10/06/21 Electronically Signed by: Lamar Keith, PT 07/09/21 0489 Please Sign and Return: I have reviewed this Plan of Care and certify that the skilled therapy services above are required to meet the patient?s needs. Physician Signature Date Printed Name and Credentials Clinical Instructor Signature Printed Name and Credentials
--- NOTE | 2021-07-03 14:15 | PT.OIE ---
Current Diagnoses Obesity, unspecified (07/03/21) Hemiplegia and hemiparesis following cerebral infarction affecting left non-dominant side (07/03/21) Lymphedema, not elsewhere classified (07/03/21) Weakness (07/03/21) Past Medical History (Last Reviewed 06/27/20 @ 13:05 by Dago Wayne MD) Asthma Chronic acquired lymphedema HTN (hypertension) Hyperlipidemia Morbid obesity with body mass index (BMI) of 40.0 to 49.9 Obstructive sleep apnea (04/03/20) Visit Care Team Role Provider Type Rayray Laird MD Attending Provider Non-Staff Primary Care Provider Referring Provider Specialty: [facility] Practice Address: [address] [place] [address] Email: Physical Therapy Initial Evaluation PT-OP-A Visit Information Start: 06/27/21 16:44 Freq: Status: Active Protocol: Document 07/03/21 14:15 SAK (Rec: 07/03/21 14:54 SAK [id number]) Out-Patient Physical Therapy Visit Information Visit Information Visit Type Treatment Note Visit Start Time 14:25 Visit Stop Time 16:00 Total Visit Minutes 95 Visit Number 1 Number of CLOTH PRINTER HELPER Visits 0 Evaluation Information Evaluation Date 07/03/21 Precautions Precautions prior CVA PT-OP-B Current Condition Start: 06/27/21 16:44 Freq: Status: Active Protocol: Document 07/03/21 14:15 SAK (Rec: 07/03/21 14:54 SAK [id number]) Current Condition History of Current Condition Onset Date 1994 Current Complaints lymphedema bilateral LE's left greater than right History of Current Condition Patient referred to PT for continued lymphedema management natacha LE's. Patient previously seen for lymphedema care and was also seen in wound care department. Patient has complicated history of lymphedema which started after he had CVA in 1994 resulting in left sided hemiparesis causing severly limited mobiity including use of power wheelchair for all mobility except short shuffling steps primarily during transfers. Patient lives alone and is unable to self-bandage or apply compressio alternative wraps ( Farrow wraps) due to hemiparesis. Has had sacral and LE wounds. Due to non- healing LE wounds and lack of ability to care for himself in the home back in November 2020, and not having skilled caregivers to help him manage, he was adminitted to SNF for 89 days. Was in [facility] in [place] for 89 days, went home Feb 10 2021 after wounds healed. To PT with caregiver Verona who is more experienced with bandaging but struggles with patient limited supplies. Reports now wound leaking again. Caregiver states in SNF Coban was being used to help manage the edema and wound but that they don't have that in the home, sister tries to help him purchase bandaging supplies but isn't always able to help. Caregiver uses what ever supplies Alejandro has. Compression Farrow wraps on thighs don't allow for safe transfers due to bulk so not wearing. Also reports doesn't have full set of Farrow wraps , didn't receive prior to leaving SNF. Working to get bandages paid for but insurance denies due to no wound. Patient today wearing Farrow wraps on lower legs only; no foot or thigh components, and reports while in SNF minimal physical activity and feels weaker as well. Prior Treatments and Tests wound care SNF admission 89 days Future Testing and Treatments Planned Sees Dr. Laird next week Treatment Goals Patient/Caregiver Goals decrease his LE lymphedema, obtain appropriate compression wraps, improve strength and mobility Prior Functional Status Baseline Function- ADL's Needs Assist Baseline Function- Mobility Needs Assist Baseline Function- Gait able to ambulate up to 15 ft Baseline Function- Work/School disabled Baseline Function- Recreation/Hobbies TV, baseball team [employer] Current Functional Impairments (Reported) Functional Limitations- ADL's needs max assist Functional Limitations- Mobility/Gait needs max assist Functional Limitations- Work/School ambulates with physical assist no more than 5 ft for transfers Personal Factors Other Personal Factors That May Effect Compliance with self-care Therapy/Recovery PT-OP-C Subjective Start: 06/27/21 16:44 Freq: Status: Active Protocol: Document 07/03/21 14:15 [facility] (Rec: 07/03/21 17:36 [facility] [id number]) Patient Questionnaires Lymphedema Life Impact Score Lymphedema Score 88 OP-PT Pain Assessment Location natacha LE's Intensity 6 PT-OP-D Balance Start: 06/27/21 16:44 Freq: Status: Active Protocol: Document 07/03/21 14:15 [facility] (Rec: 07/03/21 17:36 [facility] [id number]) OP-PT Balance Assessment Sitting Balance Static Sitting Balance Ability Fair Standing Balance Static Standing Balance Ability Poor Dynamic Standing Balance Ability Poor Villafana Fall Scale Copyright Permission PT-OP-G Mobility & Gait Start: 06/27/21 16:44 Freq: Status: Active Protocol: Document 07/03/21 14:15 [facility] (Rec: 07/03/21 17:36 [facility] [id number]) OP Mobility Evaluation Bed Mobility Rolling max assist Supine to and from Sit max assist Transfers Sit to Stand mod assist from elevated surface Bed to Chair Transfers mod assist from elevated surface, shuffling steps Car Transfers stays in w/c; transportation via w/c van Wheelchair Management Type of Wheelchair power chair Assessment Details able to drive independently. Unable to manage legrests or get leg onto leg rest; requires mod to mad assist PT-OP-J Posture/Palpation/Skin Start: 06/27/21 16:44 Freq: Status: Active Protocol: Document 07/03/21 14:15 [facility] (Rec: 07/03/21 17:36 [facility] [id number]) Skin Assessment Edema Assessment natacha LE's Edema Appearance Open Sores,Puffy Comments Lymphedema bilateral LE's left greater than right with papillomas, hyperkeratosis and elephentiasis and brownish discoloration on thighs and calves. End of left foot moist and odorous with soft white tissue, mild amount of drainage with prior wound opening up. PT-OP-N Lymphedema Start: 06/27/21 16:44 Freq: Status: Active Protocol: Document 07/03/21 14:15 [facility] (Rec: 07/03/21 17:36 [facility] [id number]) Lymphedema Measurements Lower Extremity Circumference Measurements Right Affected MT Heads 32 cm Mid-foot 34.2 cm Medial Malleolus 31 cm 10 cm From Medial Malleolus 45.6 cm 20 cm From Medial Malleolus 56 cm 30 cm From Medial Malleolus 60.2 cm 40 cm From Medial Malleolus 67.2 cm 50 cm From Medial Malleolus 78.8 cm Knee Joint 61.4 cm Left Affected MT Heads 35 cm Mid-foot 38.4 cm Medial Malleolus 36.4 cm 10 cm From Medial Malleolus 56.4 cm 20 cm From Medial Malleolus 62.2 cm 30 cm From Medial Malleolus 63.4 cm 40 cm From Medial Malleolus 62.1 cm 50 cm From Medial Malleolus 75.7 cm 60 cm From Medial Malleolus 83.2 cm Knee Joint 60.4 cm PT-OP-Q Treatments Start: 06/27/21 16:44 Freq: Status: Active Protocol: Document 07/03/21 14:15 [facility] (Rec: 07/03/21 17:36 [facility] [id number]) Lymphedema Treatment Lymphedema Wrapping Body Location bilateral LE's Materials Absorbant dressing distal left foot, Tricofix size G natacha ( size H next time for left), elastic gauze toe wraps right (unable on left as excess tissue covers toes and requires end of foot to be wrapped together). Artiflex, Comprilan, Coban, on left foot , calf, and thigh, Farrow wrap lower leg component. On right Artiflex, Comprilan foot to below knee, then Farrow wrap lower leg component. Patient Education Compression Garments PT to contact care center, physician, employment case manager regarding Farrow wraps PT-OP-T Assessment and Plan Start: 06/27/21 16:44 Freq: Status: Active Protocol: Document 07/03/21 14:15 [facility] (Rec: 07/08/21 08:38 [facility] [id number]) Physical Therapy Assessment Rehab Potential Rehabilitation Potential Fair Evaluation Complexity Number of Personal Factors/Comorbidities 3 or More Number of Body Systems Impaired 4 or More Clinical Presentation at Evaluation Unstable Impairments Impairments Edema,Functional Mobility, Strength Goals Three Impairment weakness Impairment Max assist bed mobility, mod assist transfers, no ability to ambulate at this time. Nut Tapper Goal (LTG) Patient will be independent with assistance of caregiver with HEP for purposes of facilitation of lymphatic flow and for full body strengthening to improve his lymphedema and overal functional independence LTG Duration 10/06/21 Two Impairment functional mobility Impairment Patient requires increased level of assistance for mobility: max assist bed, mod assist transfers and limited to transfers only instead of short distance ambulation Short Term Goal (STG) Patient will be able to ambulate 10' with mod assistance for purposes of ADL 's in the home STG Duration 08/18/21 Nut Tapper Goal (LTG) Patient able to move in bed with mod assist, transfer sit to stand with min assist and ambulate 25 ft with min to mod assist of caregiver for short household distance household ambulation, assistance with edema reduction, and quality of life LTG Duration 10/01/21 One Impairment lymphedema bilateral LE's left greater than right Group Home Goal (LTG) Decrease lymphedema to stable level (no increase or decrease greater than 1 cm over the course of 1 week), patient and caregiver to be independent with self-management of lymphedema to include sequential lymphedema exercises, MLD, skin care, and compression bandaging. Patient will have appropriate supplies for long- term management of compression needs. LTG Duration 10/01/21 Assessment Summary Assessment Patient presents to [facility] persistent lymphedema bilateral LE's left greater than right with papillomas, hyperkeratosis, elephentiasis , and brownish discoloration on thighs and calves. This patient has long history of lymphedema s/p CVA affecting left LE. He most recently in the spring of this year had a 2 month assisted stay due to nonhealing wound at the end of his left foot. He reports this healed while at the assisted and despite recommendations from multiple health professionals and history of poor ability to manage his health needs at home, he was discharged home. Today the end of left foot moist and odorous with soft white tissue, mild amount of drainage with prior wound appearing to be opening up. Recommend referral to wound care. Patient states he basically stayed in bed the whole time he was in the assisted and has c/o decline in function; previously able to park wheelchair outside treatment room and walk in, today requested bringing power wheelchair into room close to treatment table for transfer only. Patient has caregiver currently who is highly attentive and appears more skilled in lymphedema bandaging. Patient reports new Farrow wraps were ordered for him while in the assisted but he only came home with lower leg components; no foot, knee or thigh wraps. He states he has been unsuccessful in working with assisted to obtain the wraps and doesn't know who they were ordered through. Patient and caregiver also reports difficulty with having enough supplies for bandaging ; insurance doesn't pay. He would benefit from physical therapy for lymphedema management to include skin care, manual lymphatic drainage, use of sequential pneumatic pump, lymphedema bandaging, and sequential lymphedema exercises, and if time permits use of seated stepper for facilitation of lymphatic flow and strengthening. Physical Therapy Plan Frequency and Duration Frequency of Treatment 20 visits Duration of Treatment 12 weeks Plan of Care Start Date 10/06/21 Plan of Care End Date 10/06/21 Other Referrals/Consults Referrals/Consults Recommended Recommend wound care consult PT to contact assisted regarding Farrow wraps, and employment case manager regarding bandaging supplies Next Visit Focus/Plan Next Note Type Treatment Note Next Visit Plan Continue lymphedema management with sequential pneumatic pump to left LE, proximal MLD, therapeutic exercise, bilateral bandaging of LE's; right LE toes to knee (per patient request for mobility needs, and left from toes to upper thigh.
--- NOTE | 2021-07-10 17:27 | PT.OTN ---
Current Diagnoses Obesity, unspecified (07/10/21) Hemiplegia and hemiparesis following cerebral infarction affecting left non-dominant side (07/10/21) Lymphedema, not elsewhere classified (07/10/21) Weakness (07/10/21) Physical Therapy Treatment Note PT-OP-A Visit Information Start: 06/27/21 16:44 Freq: Status: Active Protocol: Document 07/10/21 17:13 AW (Rec: 07/10/21 17:27 AW [id number]) Out-Patient Physical Therapy Visit Information Visit Information Visit Type Treatment Note Visit Start Time 15:18 Visit Stop Time 16:48 Total Visit Minutes 90 Visit Number 2 Number of SHOWER MAID Visits 0 Evaluation Information Evaluation Date 07/03/21 Precautions Precautions prior CVA PT-OP-B Current Condition Start: 06/27/21 16:44 Freq: Status: Active Protocol: Document 07/03/21 14:15 SAK (Rec: 07/03/21 14:54 SAK [id number]) Current Condition History of Current Condition Onset Date 1994 Current Complaints lymphedema bilateral LE's left greater than right History of Current Condition Patient referred to PT for continued lymphedema management natacha LE's. Patient previously seen for lymphedema care and was also seen in wound care department. Patient has complicated history of lymphedema which started after he had CVA in 1994 resulting in left sided hemiparesis causing severly limited mobiity including use of power wheelchair for all mobility except short shuffling steps primarily during transfers. Patient lives alone and is unable to self-bandage or apply compressio alternative wraps ( Farrow wraps) due to hemiparesis. Has had sacral and LE wounds. Due to non- healing LE wounds and lack of ability to care for himself in the home back in November 2020, and not having skilled caregivers to help him manage, he was adminitted to SNF for 89 days. Was in [facility] in [place] for 89 days, went home Feb 10 2021 after wounds healed. To PT with caregiver Verona who is more experienced with bandaging but struggles with patient limited supplies. Reports now wound leaking again. Caregiver states in SNF Coban was being used to help manage the edema and wound but that they don't have that in the home, sister tries to help him purchase bandaging supplies but isn't always able to help. Caregiver uses what ever supplies Alejandro has. Compression Farrow wraps on thighs don't allow for safe transfers due to bulk so not wearing. Also reports doesn't have full set of Farrow wraps , didn't receive prior to leaving SNF. Working to get bandages paid for but insurance denies due to no wound. Patient today wearing Farrow wraps on lower legs only; no foot or thigh components, and reports while in SNF minimal physical activity and feels weaker as well. Prior Treatments and Tests wound care SNF admission 89 days Future Testing and Treatments Planned Sees Dr. Laird next week Treatment Goals Patient/Caregiver Goals decrease his LE lymphedema, obtain appropriate compression wraps, improve strength and mobility Prior Functional Status Baseline Function- ADL's Needs Assist Baseline Function- Mobility Needs Assist Baseline Function- Gait able to ambulate up to 15 ft Baseline Function- Work/School disabled Baseline Function- Recreation/Hobbies TV, baseball team [employer] Current Functional Impairments (Reported) Functional Limitations- ADL's needs max assist Functional Limitations- Mobility/Gait needs max assist Functional Limitations- Work/School ambulates with physical assist no more than 5 ft for transfers Personal Factors Other Personal Factors That May Effect Compliance with self-care Therapy/Recovery PT-OP-C Subjective Start: 06/27/21 16:44 Freq: Status: Active Protocol: Document 07/03/21 14:15 [facility] (Rec: 07/03/21 17:36 [facility] [id number]) Patient Questionnaires Lymphedema Life Impact Score Lymphedema Score 88 OP-PT Pain Assessment Location natacha LE's Intensity 6 PT-OP-D Balance Start: 06/27/21 16:44 Freq: Status: Active Protocol: Document 07/03/21 14:15 [facility] (Rec: 07/03/21 17:36 [facility] [id number]) OP-PT Balance Assessment Sitting Balance Static Sitting Balance Ability Fair Standing Balance Static Standing Balance Ability Poor Dynamic Standing Balance Ability Poor Villafana Fall Scale Copyright Permission PT-OP-G Mobility & Gait Start: 06/27/21 16:44 Freq: Status: Active Protocol: Document 07/03/21 14:15 [facility] (Rec: 07/03/21 17:36 [facility] [id number]) OP Mobility Evaluation Bed Mobility Rolling max assist Supine to and from Sit max assist Transfers Sit to Stand mod assist from elevated surface Bed to Chair Transfers mod assist from elevated surface, shuffling steps Car Transfers stays in w/c; transportation via w/c van Wheelchair Management Type of Wheelchair power chair Assessment Details able to drive independently. Unable to manage legrests or get leg onto leg rest; requires mod to mad assist PT-OP-J Posture/Palpation/Skin Start: 06/27/21 16:44 Freq: Status: Active Protocol: Document 07/03/21 14:15 [facility] (Rec: 07/03/21 17:36 SAK [id number]) Skin Assessment Edema Assessment natacha LE's Edema Appearance Open Sores,Puffy Comments Lymphedema bilateral LE's left greater than right with papillomas, hyperkeratosis and elephentiasis and brownish discoloration on thighs and calves. End of left foot moist and odorous with soft white tissue, mild amount of drainage with prior wound opening up. PT-OP-N Lymphedema Start: 06/27/21 16:44 Freq: Status: Active Protocol: Document 07/03/21 14:15 [facility] (Rec: 07/03/21 17:36 [facility] [id number]) Lymphedema Measurements Lower Extremity Circumference Measurements Right Affected MT Heads 32 cm Mid-foot 34.2 cm Medial Malleolus 31 cm 10 cm From Medial Malleolus 45.6 cm 20 cm From Medial Malleolus 56 cm 30 cm From Medial Malleolus 60.2 cm 40 cm From Medial Malleolus 67.2 cm 50 cm From Medial Malleolus 78.8 cm Knee Joint 61.4 cm Left Affected MT Heads 35 cm Mid-foot 38.4 cm Medial Malleolus 36.4 cm 10 cm From Medial Malleolus 56.4 cm 20 cm From Medial Malleolus 62.2 cm 30 cm From Medial Malleolus 63.4 cm 40 cm From Medial Malleolus 62.1 cm 50 cm From Medial Malleolus 75.7 cm 60 cm From Medial Malleolus 83.2 cm Knee Joint 60.4 cm PT-OP-Q Treatments Start: 06/27/21 16:44 Freq: Status: Active Protocol: Document 07/10/21 17:13 AW (Rec: 07/10/21 17:27 AW [id number]) Therapeutic Activity Therapeutic Activity w/c <> tx table transfers Name w/c <> tx table transfers Reps/Minutes 10 min Comments Pt requires max assist and is able to take shuffling steps during transfers only. Lymphedema Treatment Manual Lymphatic Drainage Location BLE Duration 50 min Comments Applied pneumatic pump to LLE and initiated MLD for RLE. Then treated LLE with emphasis on AIA pathways. Applied Cetaphil lotion BLE for skin care. Lymphedema Wrapping Body Location bilateral LE's Materials Absorbant dressing distal left foot, Tricofix size H natacha, elastic gauze toe wraps right (unable on left as excess tissue covers toes and requires end of foot to be wrapped together). Artiflex, Comprilan, Coban, on left foot , calf, and thigh, Farrow wrap lower leg component. On right Artiflex, Comprilan foot to above knee, then Farrow wrap lower leg component. PT-OP-T Assessment and Plan Start: 06/27/21 16:44 Freq: Status: Active Protocol: Document 07/10/21 17:13 AW (Rec: 07/10/21 17:27 AW [id number]) Physical Therapy Assessment Rehab Potential Rehabilitation Potential Fair Evaluation Complexity Number of Personal Factors/Comorbidities 3 or More Number of Body Systems Impaired 4 or More Clinical Presentation at Evaluation Unstable Impairments Impairments Edema,Functional Mobility, Strength Goals Three Impairment weakness Impairment Max assist bed mobility, mod assist transfers, no ability to ambulate at this time. Accounts Receivable Accountant Goal (LTG) Patient will be independent with assistance of caregiver with HEP for purposes of facilitation of lymphatic flow and for full body strengthening to improve his lymphedema and overal functional independence LTG Duration 10/06/21 Two Impairment functional mobility Impairment Patient requires increased level of assistance for mobility: max assist bed, mod assist transfers and limited to transfers only instead of short distance ambulation Short Term Goal (STG) Patient will be able to ambulate 10' with mod assistance for purposes of ADL 's in the home STG Duration 08/18/21 Custodial Goal (LTG) Patient able to move in bed with mod assist, transfer sit to stand with min assist and ambulate 25 ft with min to mod assist of caregiver for short household distance household ambulation, assistance with edema reduction, and quality of life LTG Duration 10/01/21 One Impairment lymphedema bilateral LE's left greater than right Accounts Receivable Accountant Goal (LTG) Decrease lymphedema to stable level (no increase or decrease greater than 1 cm over the course of 1 week), patient and caregiver to be independent with self-management of lymphedema to include sequential lymphedema exercises, MLD, skin care, and compression bandaging. Patient will have appropriate supplies for long- term management of compression needs. LTG Duration 10/01/21 Assessment Summary Assessment Pt was treated in supine today with assist from caregiver to lift LLE as needed. Pt tolerated positioning but would likely be more comfortable in sitting for lymphedema wrapping next session. No measurements taken today secondary to time constraints. Primary PT following up on farrow wraps from [facility]. Physical Therapy Plan Frequency and Duration Frequency of Treatment 20 visits Duration of Treatment 12 weeks Plan of Care Start Date 07/03/21 Plan of Care End Date 10/06/21 Other Referrals/Consults Referrals/Consults Recommended Recommend wound care consult PT to contact half-way regarding Farrow wraps, and case finisher regarding bandaging supplies Next Visit Focus/Plan Next Note Type Treatment Note Next Visit Plan Continue lymphedema management with sequential pneumatic pump to left LE, proximal MLD, therapeutic exercise, bilateral bandaging of LE's; right LE toes to knee (per patient request for mobility needs, and left from toes to upper thigh.
--- NOTE | 2021-07-10 17:29 | PT.OTN ---
Current Diagnoses Obesity, unspecified (07/10/21) Hemiplegia and hemiparesis following cerebral infarction affecting left non-dominant side (07/10/21) Lymphedema, not elsewhere classified (07/10/21) Weakness (07/10/21) Physical Therapy Treatment Note PT-OP-A Visit Information Start: 06/27/21 16:44 Freq: Status: Active Protocol: Document 07/10/21 17:13 AW (Rec: 07/10/21 17:27 AW [id number]) Out-Patient Physical Therapy Visit Information Visit Information Visit Type Treatment Note Visit Start Time 15:18 Visit Stop Time 16:48 Total Visit Minutes 90 Visit Number 2 Number of FARE ENFORCEMENT OFFICER Visits 0 Evaluation Information Evaluation Date 07/03/21 Precautions Precautions prior CVA PT-OP-B Current Condition Start: 06/27/21 16:44 Freq: Status: Active Protocol: Document 07/03/21 14:15 SAK (Rec: 07/03/21 14:54 SAK [id number]) Current Condition History of Current Condition Onset Date 1994 Current Complaints lymphedema bilateral LE's left greater than right History of Current Condition Patient referred to PT for continued lymphedema management natacha LE's. Patient previously seen for lymphedema care and was also seen in wound care department. Patient has complicated history of lymphedema which started after he had CVA in 1994 resulting in left sided hemiparesis causing severly limited mobiity including use of power wheelchair for all mobility except short shuffling steps primarily during transfers. Patient lives alone and is unable to self-bandage or apply compressio alternative wraps ( Farrow wraps) due to hemiparesis. Has had sacral and LE wounds. Due to non- healing LE wounds and lack of ability to care for himself in the home back in November 2020, and not having skilled caregivers to help him manage, he was adminitted to SNF for 89 days. Was in [facility] in [place] for 89 days, went home Feb 10 2021 after wounds healed. To PT with caregiver Verona who is more experienced with bandaging but struggles with patient limited supplies. Reports now wound leaking again. Caregiver states in SNF Coban was being used to help manage the edema and wound but that they don't have that in the home, sister tries to help him purchase bandaging supplies but isn't always able to help. Caregiver uses what ever supplies Alejandro has. Compression Farrow wraps on thighs don't allow for safe transfers due to bulk so not wearing. Also reports doesn't have full set of Farrow wraps , didn't receive prior to leaving SNF. Working to get bandages paid for but insurance denies due to no wound. Patient today wearing Farrow wraps on lower legs only; no foot or thigh components, and reports while in SNF minimal physical activity and feels weaker as well. Prior Treatments and Tests wound care SNF admission 89 days Future Testing and Treatments Planned Sees Dr. Laird next week Treatment Goals Patient/Caregiver Goals decrease his LE lymphedema, obtain appropriate compression wraps, improve strength and mobility Prior Functional Status Baseline Function- ADL's Needs Assist Baseline Function- Mobility Needs Assist Baseline Function- Gait able to ambulate up to 15 ft Baseline Function- Work/School disabled Baseline Function- Recreation/Hobbies TV, baseball team [employer] ??? Current Functional Impairments (Reported) Functional Limitations- ADL's needs max assist Functional Limitations- Mobility/Gait needs max assist Functional Limitations- Work/School ambulates with physical assist no more than 5 ft for transfers Personal Factors Other Personal Factors That May Effect Compliance with self-care Therapy/Recovery PT-OP-C Subjective Start: 06/27/21 16:44 Freq: Status: Active Protocol: Document 07/10/21 17:13 AW (Rec: 07/10/21 17:29 AW [id number]) OP-PT Subjective Patient Comments Patient Comments Pt arrives with caregiver Verona today. PT-OP-D Balance Start: 06/27/21 16:44 Freq: Status: Active Protocol: Document 07/03/21 14:15 [facility] (Rec: 07/03/21 17:36 [facility] [id number]) OP-PT Balance Assessment Sitting Balance Static Sitting Balance Ability Fair Standing Balance Static Standing Balance Ability Poor Dynamic Standing Balance Ability Poor Villafana Fall Scale Copyright Permission PT-OP-G Mobility & Gait Start: 06/27/21 16:44 Freq: Status: Active Protocol: Document 07/03/21 14:15 SAK (Rec: 07/03/21 17:36 SAK [id number]) OP Mobility Evaluation Bed Mobility Rolling max assist Supine to and from Sit max assist Transfers Sit to Stand mod assist from elevated surface Bed to Chair Transfers mod assist from elevated surface, shuffling steps Car Transfers stays in w/c; transportation via w/c van Wheelchair Management Type of Wheelchair power chair Assessment Details able to drive independently. Unable to manage legrests or get leg onto leg rest; requires mod to mad assist PT-OP-J Posture/Palpation/Skin Start: 06/27/21 16:44 Freq: Status: Active Protocol: Document 07/03/21 14:15 SAK (Rec: 07/03/21 17:36 SAK [id number]) Skin Assessment Edema Assessment natacha LE's Edema Appearance Open Sores,Puffy Comments Lymphedema bilateral LE's left greater than right with papillomas, hyperkeratosis and elephentiasis and brownish discoloration on thighs and calves. End of left foot moist and odorous with soft white tissue, mild amount of drainage with prior wound opening up. PT-OP-N Lymphedema Start: 06/27/21 16:44 Freq: Status: Active Protocol: Document 07/03/21 14:15 [facility] (Rec: 07/03/21 17:36 [facility] [id number]) Lymphedema Measurements Lower Extremity Circumference Measurements Right Affected MT Heads 32 cm Mid-foot 34.2 cm Medial Malleolus 31 cm 10 cm From Medial Malleolus 45.6 cm 20 cm From Medial Malleolus 56 cm 30 cm From Medial Malleolus 60.2 cm 40 cm From Medial Malleolus 67.2 cm 50 cm From Medial Malleolus 78.8 cm Knee Joint 61.4 cm Left Affected MT Heads 35 cm Mid-foot 38.4 cm Medial Malleolus 36.4 cm 10 cm From Medial Malleolus 56.4 cm 20 cm From Medial Malleolus 62.2 cm 30 cm From Medial Malleolus 63.4 cm 40 cm From Medial Malleolus 62.1 cm 50 cm From Medial Malleolus 75.7 cm 60 cm From Medial Malleolus 83.2 cm Knee Joint 60.4 cm PT-OP-Q Treatments Start: 06/27/21 16:44 Freq: Status: Active Protocol: Document 07/10/21 17:13 AW (Rec: 07/10/21 17:27 AW [email or web address]) Therapeutic Activity Therapeutic Activity w/c <> tx table transfers Name w/c <> tx table transfers Reps/Minutes 10 min Comments Pt requires max assist and is able to take shuffling steps during transfers only. Lymphedema Treatment Manual Lymphatic Drainage Location BLE Duration 50 min Comments Applied pneumatic pump to LLE and initiated MLD for RLE. Then treated LLE with emphasis on AIA pathways. Applied Cetaphil lotion BLE for skin care. Lymphedema Wrapping Body Location bilateral LE's Materials Absorbant dressing distal left foot, Tricofix size H natacha, elastic gauze toe wraps right (unable on left as excess tissue covers toes and requires end of foot to be wrapped together). Artiflex, Comprilan, Coban, on left foot , calf, and thigh, Farrow wrap lower leg component. On right Artiflex, Comprilan foot to above knee, then Farrow wrap lower leg component. PT-OP-T Assessment and Plan Start: 06/27/21 16:44 Freq: Status: Active Protocol: Document 07/10/21 17:13 AW (Rec: 07/10/21 17:27 AW [email or web address]) Physical Therapy Assessment Rehab Potential Rehabilitation Potential Fair Evaluation Complexity Number of Personal Factors/Comorbidities 3 or More Number of Body Systems Impaired 4 or More Clinical Presentation at Evaluation Unstable Impairments Impairments Edema,Functional Mobility, Strength Goals Three Impairment weakness Impairment Max assist bed mobility, mod assist transfers, no ability to ambulate at this time. Halfway Goal (LTG) Patient will be independent with assistance of caregiver with HEP for purposes of facilitation of lymphatic flow and for full body strengthening to improve his lymphedema and overal functional independence LTG Duration 10/06/21 Two Impairment functional mobility Impairment Patient requires increased level of assistance for mobility: max assist bed, mod assist transfers and limited to transfers only instead of short distance ambulation Short Term Goal (STG) Patient will be able to ambulate 10' with mod assistance for purposes of ADL 's in the home STG Duration 08/18/21 Halfway Goal (LTG) Patient able to move in bed with mod assist, transfer sit to stand with min assist and ambulate 25 ft with min to mod assist of caregiver for short household distance household ambulation, assistance with edema reduction, and quality of life LTG Duration 10/01/21 One Impairment lymphedema bilateral LE's left greater than right Psychiatric Nursing Aide Goal (LTG) Decrease lymphedema to stable level (no increase or decrease greater than 1 cm over the course of 1 week), patient and caregiver to be independent with self-management of lymphedema to include sequential lymphedema exercises, MLD, skin care, and compression bandaging. Patient will have appropriate supplies for long- term management of compression needs. LTG Duration 10/01/21 Assessment Summary Assessment Pt was treated in supine today with assist from caregiver to lift LLE as needed. Pt tolerated positioning but would likely be more comfortable in sitting for lymphedema wrapping next session. No measurements taken today secondary to time constraints. Primary PT following up on farrow wraps from care center. Physical Therapy Plan Frequency and Duration Frequency of Treatment 20 visits Duration of Treatment 12 weeks Plan of Care Start Date 07/03/21 Plan of Care End Date 10/06/21 Other Referrals/Consults Referrals/Consults Recommended Recommend wound care consult PT to contact [facility] regarding Farrow wraps, and casework manager regarding bandaging supplies Next Visit Focus/Plan Next Note Type Treatment Note Next Visit Plan Continue lymphedema management with sequential pneumatic pump to left LE, proximal MLD, therapeutic exercise, bilateral bandaging of LE's; right LE toes to knee (per patient request for mobility needs, and left from toes to upper thigh.
--- NOTE | 2021-07-16 15:30 | PT-OP ANOTE ---
Patient DNS for PT appointment. LVM for him reminding him of DNS charge and next appointment day and time.
--- NOTE | 2021-07-23 16:00 | PT.OTN ---
Current Diagnoses Obesity, unspecified (07/23/21) Hemiplegia and hemiparesis following cerebral infarction affecting left non-dominant side (07/23/21) Lymphedema, not elsewhere classified (07/23/21) Weakness (07/23/21) Physical Therapy Treatment Note PT-OP-A Visit Information Start: 06/27/21 16:44 Freq: Status: Active Protocol: Document 07/23/21 14:30 SAK (Rec: 07/24/21 13:45 SAK [id number]) Out-Patient Physical Therapy Visit Information Visit Information Visit Type Treatment Note Visit Start Time 14:30 Visit Stop Time 15:58 Total Visit Minutes 88 Visit Number 3 Evaluation Information Evaluation Date 07/03/21 Precautions Precautions prior CVA with left hemiparesis, elephantiasis natacha LE's left greater than right, unable to actively move left LE PT-OP-B Current Condition Start: 06/27/21 16:44 Freq: Status: Active Protocol: Document 07/03/21 14:15 SAK (Rec: 07/03/21 14:54 SAK [id number]) Current Condition History of Current Condition Onset Date 1994 Current Complaints lymphedema bilateral LE's left greater than right History of Current Condition Patient referred to PT for continued lymphedema management natacha LE's. Patient previously seen for lymphedema care and was also seen in wound care department. Patient has complicated history of lymphedema which started after he had CVA in 1994 resulting in left sided hemiparesis causing severly limited mobiity including use of power wheelchair for all mobility except short shuffling steps primarily during transfers. Patient lives alone and is unable to self-bandage or apply compressio alternative wraps ( Farrow wraps) due to hemiparesis. Has had sacral and LE wounds. Due to non- healing LE wounds and lack of ability to care for himself in the home back in November 2020, and not having skilled caregivers to help him manage, he was adminitted to SNF for 89 days. Was in [facility] in [place] for 89 days, went home Feb 10 2021 after wounds healed. To PT with caregiver Verona who is more experienced with bandaging but struggles with patient limited supplies. Reports now wound leaking again. Caregiver states in SNF Coban was being used to help manage the edema and wound but that they don't have that in the home, sister tries to help him purchase bandaging supplies but isn't always able to help. Caregiver uses what ever supplies [facility] has. Compression Farrow wraps on thighs don't allow for safe transfers due to bulk so not wearing. Also reports doesn't have full set of Farrow wraps , didn't receive prior to leaving SNF. Working to get bandages paid for but insurance denies due to no wound. Patient today wearing Farrow wraps on lower legs only; no foot or thigh components, and reports while in SNF minimal physical activity and feels weaker as well. Prior Treatments and Tests wound care SNF admission 89 days Future Testing and Treatments Planned Sees Dr. Laird next week Treatment Goals Patient/Caregiver Goals decrease his LE lymphedema, obtain appropriate compression wraps, improve strength and mobility Prior Functional Status Baseline Function- ADL's Needs Assist Baseline Function- Mobility Needs Assist Baseline Function- Gait able to ambulate up to 15 ft Baseline Function- Work/School disabled Baseline Function- Recreation/Hobbies TV, baseball team [employer] Current Functional Impairments (Reported) Functional Limitations- ADL's needs max assist Functional Limitations- Mobility/Gait needs max assist Functional Limitations- Work/School ambulates with physical assist no more than 5 ft for transfers Personal Factors Other Personal Factors That May Effect Compliance with self-care Therapy/Recovery PT-OP-C Subjective Start: 06/27/21 16:44 Freq: Status: Active Protocol: Document 07/23/21 14:30 [facility] (Rec: 07/24/21 13:45 [facility] [id number]) OP-PT Subjective Patient Comments Patient Comments No caregiver available today. States frustrated by lack of consistency of caregiver assistance. Hopes he can get new Farrow wraps soon. PT-OP-D Balance Start: 06/27/21 16:44 Freq: Status: Active Protocol: Document 07/03/21 14:15 [facility] (Rec: 07/03/21 17:36 [facility] [id number]) OP-PT Balance Assessment Sitting Balance Static Sitting Balance Ability Fair Standing Balance Static Standing Balance Ability Poor Dynamic Standing Balance Ability Poor Villafana Fall Scale Copyright Permission PT-OP-G Mobility & Gait Start: 06/27/21 16:44 Freq: Status: Active Protocol: Document 07/03/21 14:15 [facility] (Rec: 07/03/21 17:36 [facility] [id number]) OP Mobility Evaluation Bed Mobility Rolling max assist Supine to and from Sit max assist Transfers Sit to Stand mod assist from elevated surface Bed to Chair Transfers mod assist from elevated surface, shuffling steps Car Transfers stays in w/c; transportation via w/c van Wheelchair Management Type of Wheelchair power chair Assessment Details able to drive independently. Unable to manage legrests or get leg onto leg rest; requires mod to mad assist PT-OP-J Posture/Palpation/Skin Start: 06/27/21 16:44 Freq: Status: Active Protocol: Document 07/03/21 14:15 SAK (Rec: 07/03/21 17:36 [facility] [id number]) Skin Assessment Edema Assessment natacha LE's Edema Appearance Open Sores,Puffy Comments Lymphedema bilateral LE's left greater than right with papillomas, hyperkeratosis and elephentiasis and brownish discoloration on thighs and calves. End of left foot moist and odorous with soft white tissue, mild amount of drainage with prior wound opening up. PT-OP-N Lymphedema Start: 06/27/21 16:44 Freq: Status: Active Protocol: Document 07/23/21 14:30 [facility] (Rec: 07/24/21 13:45 [facility] [id number]) Lymphedema Measurements Lower Extremity Circumference Measurements Right Affected MT Heads 31.5 cm Mid-foot 33.2 cm Medial Malleolus 32.5 cm 10 cm From Medial Malleolus 46.7 cm 20 cm From Medial Malleolus 58 cm 30 cm From Medial Malleolus 60.9 cm 40 cm From Medial Malleolus 83 cm 50 cm From Medial Malleolus 86.6 cm 60 cm From Medial Malleolus 85 cm Knee Joint 60.3 cm Left Affected MT Heads 38 cm Mid-foot 40 cm Medial Malleolus 34.6 cm 10 cm From Medial Malleolus 55 cm 20 cm From Medial Malleolus 59.2 cm 30 cm From Medial Malleolus 59.9 cm 40 cm From Medial Malleolus 73.6 cm 50 cm From Medial Malleolus 86.2 cm 60 cm From Medial Malleolus 87.4 cm Knee Joint 60.4 cm PT-OP-Q Treatments Start: 06/27/21 16:44 Freq: Status: Active Protocol: Document 07/23/21 14:30 [facility] (Rec: 07/24/21 13:45 [facility] [id number]) Therapeutic Activity Therapeutic Activity w/c <> tx table transfers Name w/c <> tx table transfers Reps/Minutes 10 min Comments Pt requires max assist and is able to take shuffling steps during transfers only. Lymphedema Treatment Manual Lymphatic Drainage Location BLE Duration 50 min Comments Applied pneumatic pump to LLE and provided MLD proximally supraclavicular and trunk regfor natacha LE. Applied Cetaphil lotion BLE for skin care. Lymphedema Wrapping Body Location bilateral LE's Materials Absorbant dressing distal left foot, Tricofix size H natacha, coban right (unable on left as excess tissue covers toes and requires end of foot to be wrapped together). Artiflex, Comprilan, Coban, on left foot , calf, and thigh, Farrow wrap lower leg component applied left. On right Artiflex, Comprilan foot to below knee, then Farrow wrap lower leg component. PT-OP-T Assessment and Plan Start: 06/27/21 16:44 Freq: Status: Active Protocol: Document 07/23/21 14:30 [facility] (Rec: 07/24/21 13:45 [facility] [id number]) Physical Therapy Assessment Goals Three Impairment weakness Impairment Max assist bed mobility, mod assist transfers, no ability to ambulate at this time. Md Senior Research Scientist Goal (LTG) Patient will be independent with assistance of caregiver with HEP for purposes of facilitation of lymphatic flow and for full body strengthening to improve his lymphedema and overal functional independence LTG Duration 10/06/21 Two Impairment functional mobility Impairment Patient requires increased level of assistance for mobility: max assist bed, mod assist transfers and limited to transfers only instead of short distance ambulation Short Term Goal (STG) Patient will be able to ambulate 10' with mod assistance for purposes of ADL 's in the home STG Duration 08/18/21 Md Senior Research Scientist Goal (LTG) Patient able to move in bed with mod assist, transfer sit to stand with min assist and ambulate 25 ft with min to mod assist of caregiver for short household distance household ambulation, assistance with edema reduction, and quality of life LTG Duration 10/01/21 One Impairment lymphedema bilateral LE's left greater than right Retirement Goal (LTG) Decrease lymphedema to stable level (no increase or decrease greater than 1 cm over the course of 1 week), patient and caregiver to be independent with self-management of lymphedema to include sequential lymphedema exercises, MLD, skin care, and compression bandaging. Patient will have appropriate supplies for long- term management of compression needs. LTG Duration 10/01/21 Physical Therapy Plan Frequency and Duration Frequency of Treatment 20 visits Duration of Treatment 12 weeks Plan of Care Start Date 07/03/21 Plan of Care End Date 10/06/21 Other Referrals/Consults Referrals/Consults Recommended Have not heard back from [facility] compression wraps. Have initiated request for new referral for new Farrow wraps; sent request for order to Dr. Laird, and sent measurements to Traci Anderson at [facility]. Next Visit Focus/Plan Next Note Type Treatment Note
--- NOTE | 2021-07-24 13:45 | PT.OTN ---
Current Diagnoses Obesity, unspecified (07/23/21) Hemiplegia and hemiparesis following cerebral infarction affecting left non-dominant side (07/23/21) Lymphedema, not elsewhere classified (07/23/21) Weakness (07/23/21) Physical Therapy Treatment Note PT-OP-A Visit Information Start: 06/27/21 16:44 Freq: Status: Active Protocol: Document 07/23/21 14:30 [facility] (Rec: 07/24/21 13:45 [facility] [id number]) Out-Patient Physical Therapy Visit Information Visit Information Visit Type Treatment Note Visit Start Time 14:30 Visit Stop Time 15:58 Total Visit Minutes 88 Visit Number 3 Evaluation Information Evaluation Date 07/03/21 Precautions Precautions prior CVA with left hemiparesis, elephantiasis natacha LE's left greater than right, unable to actively move left LE PT-OP-B Current Condition Start: 06/27/21 16:44 Freq: Status: Active Protocol: Document 07/03/21 14:15 [facility] (Rec: 07/03/21 14:54 [facility] [id number]) Current Condition History of Current Condition Onset Date 1994 Current Complaints lymphedema bilateral LE's left greater than right History of Current Condition Patient referred to PT for continued lymphedema management natacha LE's. Patient previously seen for lymphedema care and was also seen in wound care department. Patient has complicated history of lymphedema which started after he had CVA in 1994 resulting in left sided hemiparesis causing severly limited mobiity including use of power wheelchair for all mobility except short shuffling steps primarily during transfers. Patient lives alone and is unable to self-bandage or apply compressio alternative wraps ( Farrow wraps) due to hemiparesis. Has had sacral and LE wounds. Due to non- healing LE wounds and lack of ability to care for himself in the home back in November 2020, and not having skilled caregivers to help him manage, he was adminitted to SNF for 89 days. Was in [facility] in [place] for 89 days, went home Feb 10 2021 after wounds healed. To PT with caregiver Verona who is more experienced with bandaging but struggles with patient limited supplies. Reports now wound leaking again. Caregiver states in SNF Coban was being used to help manage the edema and wound but that they don't have that in the home, sister tries to help him purchase bandaging supplies but isn't always able to help. Caregiver uses what ever supplies Ale[facility] has. Compression Farrow wraps on thighs don't allow for safe transfers due to bulk so not wearing. Also reports doesn't have full set of Farrow wraps , didn't receive prior to leaving SNF. Working to get bandages paid for but insurance denies due to no wound. Patient today wearing Farrow wraps on lower legs only; no foot or thigh components, and reports while in SNF minimal physical activity and feels weaker as well. Prior Treatments and Tests wound care SNF admission 89 days Future Testing and Treatments Planned Sees Dr. Laird next week Treatment Goals Patient/Caregiver Goals decrease his LE lymphedema, obtain appropriate compression wraps, improve strength and mobility Prior Functional Status Baseline Function- ADL's Needs Assist Baseline Function- Mobility Needs Assist Baseline Function- Gait able to ambulate up to 15 ft Baseline Function- Work/School disabled Baseline Function- Recreation/Hobbies TV, baseball team [employer] Current Functional Impairments (Reported) Functional Limitations- ADL's needs max assist Functional Limitations- Mobility/Gait needs max assist Functional Limitations- Work/School ambulates with physical assist no more than 5 ft for transfers Personal Factors Other Personal Factors That May Effect Compliance with self-care Therapy/Recovery PT-OP-C Subjective Start: 06/27/21 16:44 Freq: Status: Active Protocol: Document 07/23/21 14:30 [facility] (Rec: 07/24/21 13:45 [facility] [id number]) OP-PT Subjective Patient Comments Patient Comments No caregiver available today. States frustrated by lack of consistency of caregiver assistance. Hopes he can get new Farrow wraps soon. PT-OP-D Balance Start: 06/27/21 16:44 Freq: Status: Active Protocol: Document 07/03/21 14:15 [facility] (Rec: 07/03/21 17:36 [facility] [id number]) OP-PT Balance Assessment Sitting Balance Static Sitting Balance Ability Fair Standing Balance Static Standing Balance Ability Poor Dynamic Standing Balance Ability Poor Villafana Fall Scale Copyright Permission PT-OP-G Mobility & Gait Start: 06/27/21 16:44 Freq: Status: Active Protocol: Document 07/03/21 14:15 [facility] (Rec: 07/03/21 17:36 [facility] [id number]) OP Mobility Evaluation Bed Mobility Rolling max assist Supine to and from Sit max assist Transfers Sit to Stand mod assist from elevated surface Bed to Chair Transfers mod assist from elevated surface, shuffling steps Car Transfers stays in w/c; transportation via w/c van Wheelchair Management Type of Wheelchair power chair Assessment Details able to drive independently. Unable to manage legrests or get leg onto leg rest; requires mod to mad assist PT-OP-J Posture/Palpation/Skin Start: 06/27/21 16:44 Freq: Status: Active Protocol: Document 07/03/21 14:15 [facility] (Rec: 07/03/21 17:36 [facility] [id number]) Skin Assessment Edema Assessment natacha LE's Edema Appearance Open Sores,Puffy Comments Lymphedema bilateral LE's left greater than right with papillomas, hyperkeratosis and elephentiasis and brownish discoloration on thighs and calves. End of left foot moist and odorous with soft white tissue, mild amount of drainage with prior wound opening up. PT-OP-N Lymphedema Start: 06/27/21 16:44 Freq: Status: Active Protocol: Document 07/23/21 14:30 [facility] (Rec: 07/24/21 13:45 [facility] [id number]) Lymphedema Measurements Lower Extremity Circumference Measurements Right Affected MT Heads 31.5 cm Mid-foot 33.2 cm Medial Malleolus 32.5 cm 10 cm From Medial Malleolus 46.7 cm 20 cm From Medial Malleolus 58 cm 30 cm From Medial Malleolus 60.9 cm 40 cm From Medial Malleolus 83 cm 50 cm From Medial Malleolus 86.6 cm 60 cm From Medial Malleolus 85 cm Knee Joint 60.3 cm Left Affected MT Heads 38 cm Mid-foot 40 cm Medial Malleolus 34.6 cm 10 cm From Medial Malleolus 55 cm 20 cm From Medial Malleolus 59.2 cm 30 cm From Medial Malleolus 59.9 cm 40 cm From Medial Malleolus 73.6 cm 50 cm From Medial Malleolus 86.2 cm 60 cm From Medial Malleolus 87.4 cm Knee Joint 60.4 cm PT-OP-Q Treatments Start: 06/27/21 16:44 Freq: Status: Active Protocol: Document 07/23/21 14:30 [facility] (Rec: 07/24/21 13:45 [facility] [id number]) Therapeutic Activity Therapeutic Activity w/c <> tx table transfers Name w/c <> tx table transfers Reps/Minutes 10 min Comments Pt requires max assist and is able to take shuffling steps during transfers only. Lymphedema Treatment Manual Lymphatic Drainage Location BLE Duration 50 min Comments Applied pneumatic pump to LLE and provided MLD proximally supraclavicular and trunk regfor natacha LE. Applied Cetaphil lotion BLE for skin care. Lymphedema Wrapping Body Location bilateral LE's Materials Absorbant dressing distal left foot, Tricofix size H natacha, coban right (unable on left as excess tissue covers toes and requires end of foot to be wrapped together). Artiflex, Comprilan, Coban, on left foot , calf, and thigh, Farrow wrap lower leg component applied left. On right Artiflex, Comprilan foot to below knee, then Farrow wrap lower leg component. PT-OP-T Assessment and Plan Start: 06/27/21 16:44 Freq: Status: Active Protocol: Document 07/23/21 14:30 [facility] (Rec: 07/24/21 13:45 [facility] [id number]) Physical Therapy Assessment Goals Three Impairment weakness Impairment Max assist bed mobility, mod assist transfers, no ability to ambulate at this time. Business Development Agent Goal (LTG) Patient will be independent with assistance of caregiver with HEP for purposes of facilitation of lymphatic flow and for full body strengthening to improve his lymphedema and overal functional independence LTG Duration 10/06/21 Two Impairment functional mobility Impairment Patient requires increased level of assistance for mobility: max assist bed, mod assist transfers and limited to transfers only instead of short distance ambulation Short Term Goal (STG) Patient will be able to ambulate 10' with mod assistance for purposes of ADL 's in the home STG Duration 08/18/21 Business Development Agent Goal (LTG) Patient able to move in bed with mod assist, transfer sit to stand with min assist and ambulate 25 ft with min to mod assist of caregiver for short household distance household ambulation, assistance with edema reduction, and quality of life LTG Duration 10/01/21 One Impairment lymphedema bilateral LE's left greater than right Nursing Home Goal (LTG) Decrease lymphedema to stable level (no increase or decrease greater than 1 cm over the course of 1 week), patient and caregiver to be independent with self-management of lymphedema to include sequential lymphedema exercises, MLD, skin care, and compression bandaging. Patient will have appropriate supplies for long- term management of compression needs. LTG Duration 10/01/21 Physical Therapy Plan Frequency and Duration Frequency of Treatment 20 visits Duration of Treatment 12 weeks Plan of Care Start Date 07/03/21 Plan of Care End Date 10/06/21 Other Referrals/Consults Referrals/Consults Recommended [facility] not heard back from [facility] compression wraps. Have initiated request for new referral for new Farrow wraps; sent request for order to Dr. Laird, and sent measurements to Traci Anderson at [facility]. Next Visit Focus/Plan Next Note Type Treatment Note
--- NOTE | 2021-07-25 16:32 | PT.OTN ---
Current Diagnoses Obesity, unspecified (07/25/21) Hemiplegia and hemiparesis following cerebral infarction affecting left non-dominant side (07/25/21) Lymphedema, not elsewhere classified (07/25/21) Weakness (07/25/21) Physical Therapy Treatment Note PT-OP-A Visit Information Start: 06/27/21 16:44 Freq: Status: Active Protocol: Document 07/25/21 14:26 [facility] (Rec: 07/25/21 14:40 [facility] [id number]) Out-Patient Physical Therapy Visit Information Visit Information Visit Type Treatment Note Visit Start Time 14:30 Visit Stop Time 16:02 Total Visit Minutes 92 Visit Number 3 Evaluation Information Evaluation Date 07/03/21 Precautions Precautions prior CVA with left hemiparesis, elephantiasis natacha LE's left greater than right, unable to actively move left LE PT-OP-B Current Condition Start: 06/27/21 16:44 Freq: Status: Active Protocol: Document 07/03/21 14:15 [facility] (Rec: 07/03/21 14:54 [facility] [id number]) Current Condition History of Current Condition Onset Date 1994 Current Complaints lymphedema bilateral LE's left greater than right History of Current Condition Patient referred to PT for continued lymphedema management natacha LE's. Patient previously seen for lymphedema care and was also seen in wound care department. Patient has complicated history of lymphedema which started after he had CVA in 1994 resulting in left sided hemiparesis causing severly limited mobiity including use of power wheelchair for all mobility except short shuffling steps primarily during transfers. Patient lives alone and is unable to self-bandage or apply compressio alternative wraps ( Farrow wraps) due to hemiparesis. Has had sacral and LE wounds. Due to non- healing LE wounds and lack of ability to care for himself in the home back in November 2020, and not having skilled caregivers to help him manage, he was adminitted to SNF for 89 days. Was in [facility] in [place] for 89 days, went home Feb 10 2021 after wounds healed. To PT with caregiver Verona who is more experienced with bandaging but struggles with patient limited supplies. Reports now wound leaking again. Caregiver states in SNF Coban was being used to help manage the edema and wound but that they don't have that in the home, sister tries to help him purchase bandaging supplies but isn't always able to help. Caregiver uses what ever supplies [facility] has. Compression Farrow wraps on thighs don't allow for safe transfers due to bulk so not wearing. Also reports doesn't have full set of Farrow wraps , didn't receive prior to leaving SNF. Working to get bandages paid for but insurance denies due to no wound. Patient today wearing Farrow wraps on lower legs only; no foot or thigh components, and reports while in SNF minimal physical activity and feels weaker as well. Prior Treatments and Tests wound care SNF admission 89 days Future Testing and Treatments Planned Sees Dr. Laird next week Treatment Goals Patient/Caregiver Goals decrease his LE lymphedema, obtain appropriate compression wraps, improve strength and mobility Prior Functional Status Baseline Function- ADL's Needs Assist Baseline Function- Mobility Needs Assist Baseline Function- Gait able to ambulate up to 15 ft Baseline Function- Work/School disabled Baseline Function- Recreation/Hobbies TV, baseball team [employer] Current Functional Impairments (Reported) Functional Limitations- ADL's needs max assist Functional Limitations- Mobility/Gait needs max assist Functional Limitations- Work/School ambulates with physical assist no more than 5 ft for transfers Personal Factors Other Personal Factors That May Effect Compliance with self-care Therapy/Recovery PT-OP-C Subjective Start: 06/27/21 16:44 Freq: Status: Active Protocol: Document 07/25/21 14:26 [facility] (Rec: 07/25/21 14:40 [facility] [id number]) OP-PT Subjective Patient Comments Patient Comments Caregiver Verona comes to PT today. Reports they continue to be low on bandages so she can only bandage him every other day. PT-OP-D Balance Start: 06/27/21 16:44 Freq: Status: Active Protocol: Document 07/03/21 14:15 [facility] (Rec: 07/03/21 17:36 [facility] [id number]) OP-PT Balance Assessment Sitting Balance Static Sitting Balance Ability Fair Standing Balance Static Standing Balance Ability Poor Dynamic Standing Balance Ability Poor Villafana Fall Scale Copyright Permission PT-OP-G Mobility & Gait Start: 06/27/21 16:44 Freq: Status: Active Protocol: Document 07/03/21 14:15 [facility] (Rec: 07/03/21 17:36 [facility] [id number]) OP Mobility Evaluation Bed Mobility Rolling max assist Supine to and from Sit max assist Transfers Sit to Stand mod assist from elevated surface Bed to Chair Transfers mod assist from elevated surface, shuffling steps Car Transfers stays in w/c; transportation via w/c van Wheelchair Management Type of Wheelchair power chair Assessment Details able to drive independently. Unable to manage legrests or get leg onto leg rest; requires mod to mad assist PT-OP-J Posture/Palpation/Skin Start: 06/27/21 16:44 Freq: Status: Active Protocol: Document 07/03/21 14:15 [facility] (Rec: 07/03/21 17:36 [facility] [id number]) Skin Assessment Edema Assessment natacha LE's Edema Appearance Open Sores,Puffy Comments Lymphedema bilateral LE's left greater than right with papillomas, hyperkeratosis and elephentiasis and brownish discoloration on thighs and calves. End of left foot moist and odorous with soft white tissue, mild amount of drainage with prior wound opening up. PT-OP-N Lymphedema Start: 06/27/21 16:44 Freq: Status: Active Protocol: Document 07/23/21 14:30 [facility] (Rec: 07/24/21 13:45 [facility] [id number]) Lymphedema Measurements Lower Extremity Circumference Measurements Right Affected MT Heads 31.5 cm Mid-foot 33.2 cm Medial Malleolus 32.5 cm 10 cm From Medial Malleolus 46.7 cm 20 cm From Medial Malleolus 58 cm 30 cm From Medial Malleolus 60.9 cm 40 cm From Medial Malleolus 83 cm 50 cm From Medial Malleolus 86.6 cm 60 cm From Medial Malleolus 85 cm Knee Joint 60.3 cm Left Affected MT Heads 38 cm Mid-foot 40 cm Medial Malleolus 34.6 cm 10 cm From Medial Malleolus 55 cm 20 cm From Medial Malleolus 59.2 cm 30 cm From Medial Malleolus 59.9 cm 40 cm From Medial Malleolus 73.6 cm 50 cm From Medial Malleolus 86.2 cm 60 cm From Medial Malleolus 87.4 cm Knee Joint 60.4 cm PT-OP-Q Treatments Start: 06/27/21 16:44 Freq: Status: Active Protocol: Document 07/25/21 14:26 [facility] (Rec: 07/25/21 14:40 [facility] [id number]) Therapeutic Activity Therapeutic Activity w/c <> tx table transfers Name w/c <> tx table transfers Reps/Minutes 10 min Comments Pt requires max assist and is able to take shuffling steps during transfers only. Lymphedema Treatment Manual Lymphatic Drainage Location BLE Duration 50 min Comments Applied pneumatic pump to LLE and provided MLD proximally supraclavicular and trunk regfor natacha LE. Applied Cetaphil lotion BLE for skin care. Lymphedema Wrapping Body Location bilateral LE's Materials Absorbant dressing distal left foot covered with foam chip tied in end of stockinnette Tricofix size H natacha, coban right toes (unable on left as excess tissue covers toes and requires end of foot to be wrapped together). Artiflex, channel foam in anterior ankle crease, Comprilan, Coban, on left foot, calf, and thigh, Farrow wrap lower leg component applied left. On right Artiflex, Comprilan foot to below knee, then Farrow wrap lower leg component. PT-OP-T Assessment and Plan Start: 06/27/21 16:44 Freq: Status: Active Protocol: Document 07/25/21 14:26 [facility] (Rec: 07/25/21 14:40 [facility] [id number]) Physical Therapy Assessment Goals Three Impairment weakness Impairment Max assist bed mobility, mod assist transfers, no ability to ambulate at this time. Senior Billing Consultant Goal (LTG) Patient will be independent with assistance of caregiver with HEP for purposes of facilitation of lymphatic flow and for full body strengthening to improve his lymphedema and overal functional independence LTG Duration 10/06/21 Two Impairment functional mobility Impairment Patient requires increased level of assistance for mobility: max assist bed, mod assist transfers and limited to transfers only instead of short distance ambulation Short Term Goal (STG) Patient will be able to ambulate 10' with mod assistance for purposes of ADL 's in the home STG Duration 08/18/21 Snf Goal (LTG) Patient able to move in bed with mod assist, transfer sit to stand with min assist and ambulate 25 ft with min to mod assist of caregiver for short household distance household ambulation, assistance with edema reduction, and quality of life LTG Duration 10/01/21 One Impairment lymphedema bilateral LE's left greater than right Senior Billing Consultant Goal (LTG) Decrease lymphedema to stable level (no increase or decrease greater than 1 cm over the course of 1 week), patient and caregiver to be independent with self-management of lymphedema to include sequential lymphedema exercises, MLD, skin care, and compression bandaging. Patient will have appropriate supplies for long- term management of compression needs. LTG Duration 10/01/21 Assessment Summary Assessment Bandaging in the home continues to be a challenge, caregiver did not rebandage yesterday due to short on supplies; PT department had to provide more artiflex and Tricofix as patient does not have. Will need to continue with lymphedema management until patient can obtain full Farrow wraps, and these need to be replaced at least every 6 months. Will need to discuss patient needs further with porter sample case. Physical Therapy Plan Frequency and Duration Frequency of Treatment 20 visits Duration of Treatment 12 weeks Plan of Care Start Date 07/03/21 Plan of Care End Date 10/06/21 Other Referrals/Consults Referrals/Consults Recommended Have not heard back from [facility] regarding compression wraps. Have initiated request for new referral for new Farrow wraps; sent request for order to Dr. Laird, and sent measurements to Traci Anderson at [facility]. Next Visit Focus/Plan Next Note Type Treatment Note Next Visit Plan Continue lymphedema management with sequential pneumatic pump to left LE, proximal MLD, therapeutic exercise, bilateral bandaging of LE's; right LE toes to knee (per patient request for mobility needs, and left from toes to upper thigh. Request order for Flexitouch pump for bilateral LE's, and further discuss patient long-term needs with porter sample case.
--- NOTE | 2021-07-30 16:15 | PT.OTN ---
Current Diagnoses Obesity, unspecified (07/30/21) Hemiplegia and hemiparesis following cerebral infarction affecting left non-dominant side (07/30/21) Lymphedema, not elsewhere classified (07/30/21) Weakness (07/30/21) Physical Therapy Treatment Note PT-OP-A Visit Information Start: 06/27/21 16:44 Freq: Status: Active Protocol: Document 07/30/21 15:58 [facility]AK (Rec: 07/30/21 16:14 [facility]AK [id number]) Out-Patient Physical Therapy Visit Information Visit Information Visit Type Treatment Note Visit Start Time 14:30 Visit Stop Time 15:54 Total Visit Minutes 86 Visit Number 5 Evaluation Information Evaluation Date 07/03/21 Precautions Precautions prior CVA with left hemiparesis, elephantiasis natacha LE's left greater than right, unable to actively move left LE PT-OP-B Current Condition Start: 06/27/21 16:44 Freq: Status: Active Protocol: Document 07/03/21 14:15 SAK (Rec: 07/03/21 14:54 [facility] [id number]) Current Condition History of Current Condition Onset Date 1994 Current Complaints lymphedema bilateral LE's left greater than right History of Current Condition Patient referred to PT for continued lymphedema management natacha LE's. Patient previously seen for lymphedema care and was also seen in wound care department. Patient has complicated history of lymphedema which started after he had CVA in 1994 resulting in left sided hemiparesis causing severly limited mobiity including use of power wheelchair for all mobility except short shuffling steps primarily during transfers. Patient lives alone and is unable to self-bandage or apply compressio alternative wraps ( Farrow wraps) due to hemiparesis. Has had sacral and LE wounds. Due to non- healing LE wounds and lack of ability to care for himself in the home back in November 2020, and not having skilled caregivers to help him manage, he was adminitted to SNF for 89 days. Was in [facility] in [place] for 89 days, went home Feb 10 2021 after wounds healed. To PT with caregiver Verona who is more experienced with bandaging but struggles with patient limited supplies. Reports now wound leaking again. Caregiver states in SNF Coban was being used to help manage the edema and wound but that they don't have that in the home, sister tries to help him purchase bandaging supplies but isn't always able to help. Caregiver uses what ever supplies [facility] has. Compression Farrow wraps on thighs don't allow for safe transfers due to bulk so not wearing. Also reports doesn't have full set of Farrow wraps , didn't receive prior to leaving SNF. Working to get bandages paid for but insurance denies due to no wound. Patient today wearing Farrow wraps on lower legs only; no foot or thigh components, and reports while in SNF minimal physical activity and feels weaker as well. Prior Treatments and Tests wound care SNF admission 89 days Future Testing and Treatments Planned Sees Dr. Laird next week Treatment Goals Patient/Caregiver Goals decrease his LE lymphedema, obtain appropriate compression wraps, improve strength and mobility Prior Functional Status Baseline Function- ADL's Needs Assist Baseline Function- Mobility Needs Assist Baseline Function- Gait able to ambulate up to 15 ft Baseline Function- Work/School disabled Baseline Function- Recreation/Hobbies TV, baseball team [employer] Current Functional Impairments (Reported) Functional Limitations- ADL's needs max assist Functional Limitations- Mobility/Gait needs max assist Functional Limitations- Work/School ambulates with physical assist no more than 5 ft for transfers Personal Factors Other Personal Factors That May Effect Compliance with self-care Therapy/Recovery PT-OP-C Subjective Start: 06/27/21 16:44 Freq: Status: Active Protocol: Document 07/30/21 15:58 [facility] (Rec: 07/30/21 16:14 [facility] [id number]) OP-PT Subjective Patient Comments Patient Comments No caregiver assist today, states saw her earlier today. No new c/o. States he is doing his exercises. PT-OP-D Balance Start: 06/27/21 16:44 Freq: Status: Active Protocol: Document 07/03/21 14:15 SAK (Rec: 07/03/21 17:36 [facility] [id number]) OP-PT Balance Assessment Sitting Balance Static Sitting Balance Ability Fair Standing Balance Static Standing Balance Ability Poor Dynamic Standing Balance Ability Poor Villafana Fall Scale Copyright Permission PT-OP-G Mobility & Gait Start: 06/27/21 16:44 Freq: Status: Active Protocol: Document 07/03/21 14:15 SAK (Rec: 07/03/21 17:36 [facility] [id number]) OP Mobility Evaluation Bed Mobility Rolling max assist Supine to and from Sit max assist Transfers Sit to Stand mod assist from elevated surface Bed to Chair Transfers mod assist from elevated surface, shuffling steps Car Transfers stays in w/c; transportation via w/c van Wheelchair Management Type of Wheelchair power chair Assessment Details able to drive independently. Unable to manage legrests or get leg onto leg rest; requires mod to mad assist PT-OP-J Posture/Palpation/Skin Start: 06/27/21 16:44 Freq: Status: Active Protocol: Document 07/03/21 14:15 [facility] (Rec: 07/03/21 17:36 [facility] [id number]) Skin Assessment Edema Assessment natacha LE's Edema Appearance Open Sores,Puffy Comments Lymphedema bilateral LE's left greater than right with papillomas, hyperkeratosis and elephentiasis and brownish discoloration on thighs and calves. End of left foot moist and odorous with soft white tissue, mild amount of drainage with prior wound opening up. PT-OP-N Lymphedema Start: 06/27/21 16:44 Freq: Status: Active Protocol: Document 07/30/21 15:58 [facility] (Rec: 07/30/21 16:14 [facility] [id number]) Lymphedema Measurements Lower Extremity Circumference Measurements Right Affected MT Heads 31 cm Mid-foot 30.8 cm Medial Malleolus 29 cm 10 cm From Medial Malleolus 48.6 cm 20 cm From Medial Malleolus 59.6 cm 30 cm From Medial Malleolus 60.9 cm 40 cm From Medial Malleolus 76.8 cm 50 cm From Medial Malleolus 83.3 cm 60 cm From Medial Malleolus 84 cm Knee Joint 60.1 cm Left Affected MT Heads 38.5 cm Mid-foot 39 cm Medial Malleolus 36 cm 10 cm From Medial Malleolus 55 cm 20 cm From Medial Malleolus 57.2 cm 30 cm From Medial Malleolus 57.9 cm 40 cm From Medial Malleolus 73.5 cm 50 cm From Medial Malleolus 85.9 cm 60 cm From Medial Malleolus 87 cm Knee Joint 56.8 cm PT-OP-Q Treatments Start: 06/27/21 16:44 Freq: Status: Active Protocol: Document 07/30/21 15:58 [facility] (Rec: 07/30/21 16:14 [facility] [id number]) Therapeutic Activity Therapeutic Activity w/c <> tx table transfers Name w/c <> tx table transfers Reps/Minutes 10 min Comments Pt requires max assist and is able to take shuffling steps during transfers only. Lymphedema Treatment Manual Lymphatic Drainage Location BLE Duration 50 min Comments Applied pneumatic pump to LLE and provided MLD proximally supraclavicular and trunk regfor natacha LE. Applied Cetaphil lotion BLE for skin care. Lymphedema Wrapping Body Location bilateral LE's Materials Absorbant dressing distal left foot covered with foam chip tied in end of stockinnette Tricofix size H natacha, coban right toes (unable on left as excess tissue covers toes and requires end of foot to be wrapped together). Artiflex, channel foam in anterior ankle crease, Comprilan, Coban, on left foot, calf, and thigh, Farrow wrap lower leg component applied left. On right Artiflex, Comprilan foot to below knee, then Farrow wrap lower leg component. PT-OP-T Assessment and Plan Start: 06/27/21 16:44 Freq: Status: Active Protocol: Document 07/30/21 15:58 [facility] (Rec: 07/30/21 16:14 [facility] [id number]) Physical Therapy Assessment Goals Three Impairment weakness Impairment Max assist bed mobility, mod assist transfers, no ability to ambulate at this time. Mcc Goal (LTG) Patient will be independent with assistance of caregiver with HEP for purposes of facilitation of lymphatic flow and for full body strengthening to improve his lymphedema and overal functional independence LTG Duration 10/06/21 Two Impairment functional mobility Impairment Patient requires increased level of assistance for mobility: max assist bed, mod assist transfers and limited to transfers only instead of short distance ambulation Short Term Goal (STG) Patient will be able to ambulate 10' with mod assistance for purposes of ADL 's in the home STG Duration 08/18/21 [employer] [facility] Vehicle Operator Goal (LTG) Patient able to move in bed with mod assist, transfer sit to stand with min assist and ambulate 25 ft with min to mod assist of caregiver for short household distance household ambulation, assistance with edema reduction, and quality of life LTG Duration 10/01/21 One Impairment lymphedema bilateral LE's left greater than right Mcc Goal (LTG) Decrease lymphedema to stable level (no increase or decrease greater than 1 cm over the course of 1 week), patient and caregiver to be independent with self-management of lymphedema to include sequential lymphedema exercises, MLD, skin care, and compression bandaging. Patient will have appropriate supplies for long- term management of compression needs. LTG Duration 10/01/21 Assessment Summary Assessment Improvement in some measurements left, increased measurements lower leg right so increased layering of comprilan right lower leg. Physical Therapy Plan Frequency and Duration Frequency of Treatment 20 visits Duration of Treatment 12 weeks Plan of Care Start Date 07/03/21 Plan of Care End Date 10/06/21 Other Referrals/Consults Referrals/Consults Recommended Spoke with Neda Schultz from [facility] regarding patient need for ongoing wound bandaging supplies and compression supplies as well as full leg compression alternatives that need to be replaced at least every 6 months. She sent copy of what patient requested, I responded with clarification and update of list. Next Visit Focus/Plan Next Note Type Treatment Note Next Visit Plan Continue lymphedema management with sequential pneumatic pump to left LE, proximal MLD, therapeutic exercise, bilateral bandaging of LE's; right LE toes to knee (per patient request for mobility needs, and left from toes to upper thigh. Request order for Flexitouch pump for bilateral LE's, and further discuss patient long-term needs with rn case management.
--- NOTE | 2021-08-08 16:21 | PT.OTN ---
Current Diagnoses Obesity, unspecified (08/08/21) Hemiplegia and hemiparesis following cerebral infarction affecting left non-dominant side (08/08/21) Lymphedema, not elsewhere classified (08/08/21) Weakness (08/08/21) Physical Therapy Treatment Note PT-OP-A Visit Information Start: 06/27/21 16:44 Freq: Status: Active Protocol: Document 08/08/21 16:10 [facility] (Rec: 08/08/21 16:19 [facility] [id number]) Out-Patient Physical Therapy Visit Information Visit Information Visit Type Treatment Note Visit Start Time 14:30 Visit Stop Time 15:54 Total Visit Minutes 89 Visit Number 6 Evaluation Information Evaluation Date 07/03/21 Precautions Precautions prior CVA with left hemiparesis, elephantiasis natacha LE's left greater than right, unable to actively move left LE PT-OP-B Current Condition Start: 06/27/21 16:44 Freq: Status: Active Protocol: Document 07/03/21 14:15 [facility] (Rec: 07/03/21 14:54 [facility] [id number]) Current Condition History of Current Condition Onset Date 1994 Current Complaints lymphedema bilateral LE's left greater than right History of Current Condition Patient referred to PT for continued lymphedema management natacha LE's. Patient previously seen for lymphedema care and was also seen in wound care department. Patient has complicated history of lymphedema which started after he had CVA in 1994 resulting in left sided hemiparesis causing severly limited mobiity including use of power wheelchair for all mobility except short shuffling steps primarily during transfers. Patient lives alone and is unable to self-bandage or apply compressio alternative wraps ( Farrow wraps) due to hemiparesis. Has had sacral and LE wounds. Due to non- healing LE wounds and lack of ability to care for himself in the home back in November 2020, and not having skilled caregivers to help him manage, he was adminitted to SNF for 89 days. Was in [facility] in [place] for 89 days, went home Feb 10 2021 after wounds healed. To PT with caregiver Verona who is more experienced with bandaging but struggles with patient limited supplies. Reports now wound leaking again. Caregiver states in SNF Coban was being used to help manage the edema and wound but that they don't have that in the home, sister tries to help him purchase bandaging supplies but isn't always able to help. Caregiver uses what ever supplies [facility] has. Compression Farrow wraps on thighs don't allow for safe transfers due to bulk so not wearing. Also reports doesn't have full set of Farrow wraps , didn't receive prior to leaving SNF. Working to get bandages paid for but insurance denies due to no wound. Patient today wearing Farrow wraps on lower legs only; no foot or thigh components, and reports while in SNF minimal physical activity and feels weaker as well. Prior Treatments and Tests wound care SNF admission 89 days Future Testing and Treatments Planned Sees Dr. Laird next week Treatment Goals Patient/Caregiver Goals decrease his LE lymphedema, obtain appropriate compression wraps, improve strength and mobility Prior Functional Status Baseline Function- ADL's Needs Assist Baseline Function- Mobility Needs Assist Baseline Function- Gait able to ambulate up to 15 ft Baseline Function- Work/School disabled Baseline Function- Recreation/Hobbies TV, baseball team [employer] Current Functional Impairments (Reported) Functional Limitations- ADL's needs max assist Functional Limitations- Mobility/Gait needs max assist Functional Limitations- Work/School ambulates with physical assist no more than 5 ft for transfers Personal Factors Other Personal Factors That May Effect Compliance with self-care Therapy/Recovery PT-OP-C Subjective Start: 06/27/21 16:44 Freq: Status: Active Protocol: Document 08/08/21 16:10 [facility] (Rec: 08/08/21 16:19 [facility] [id number]) OP-PT Subjective Patient Comments Patient Comments Caregiver Verona to PT today with patient. No new c/o. Still hasn't received prescription for bandaging materials, reports correctional case records supervisor is supposed to be bringing to her. PT-OP-D Balance Start: 06/27/21 16:44 Freq: Status: Active Protocol: Document 07/03/21 14:15 [facility] (Rec: 07/03/21 17:36 [facility] [id number]) OP-PT Balance Assessment Sitting Balance Static Sitting Balance Ability Fair Standing Balance Static Standing Balance Ability Poor Dynamic Standing Balance Ability Poor Villafana Fall Scale Copyright Permission PT-OP-G Mobility & Gait Start: 06/27/21 16:44 Freq: Status: Active Protocol: Document 07/03/21 14:15 [facility] (Rec: 07/03/21 17:36 [facility] [id number]) OP Mobility Evaluation Bed Mobility Rolling max assist Supine to and from Sit max assist Transfers Sit to Stand mod assist from elevated surface Bed to Chair Transfers mod assist from elevated surface, shuffling steps Car Transfers stays in w/c; transportation via w/c van Wheelchair Management Type of Wheelchair power chair Assessment Details able to drive independently. Unable to manage legrests or get leg onto leg rest; requires mod to mad assist PT-OP-J Posture/Palpation/Skin Start: 06/27/21 16:44 Freq: Status: Active Protocol: Document 07/03/21 14:15 [facility] (Rec: 07/03/21 17:36 [facility] [id number]) Skin Assessment Edema Assessment natacha LE's Edema Appearance Open Sores,Puffy Comments Lymphedema bilateral LE's left greater than right with papillomas, hyperkeratosis and elephentiasis and brownish discoloration on thighs and calves. End of left foot moist and odorous with soft white tissue, mild amount of drainage with prior wound opening up. PT-OP-N Lymphedema Start: 06/27/21 16:44 Freq: Status: Active Protocol: Document 08/08/21 16:10 [facility] (Rec: 08/08/21 16:19 [facility] [id number]) Lymphedema Measurements Lower Extremity Circumference Measurements Right Affected MT Heads 29 cm Mid-foot 30.8 cm Medial Malleolus 28.2 cm 10 cm From Medial Malleolus 43.2 cm 20 cm From Medial Malleolus 54.1 cm 30 cm From Medial Malleolus 61 cm 40 cm From Medial Malleolus 75.6 cm 50 cm From Medial Malleolus 73.5 cm 60 cm From Medial Malleolus 85.6 cm Knee Joint 60.6 cm Left Affected MT Heads 38.2 cm Mid-foot 36.1 cm Medial Malleolus 33.7 cm 10 cm From Medial Malleolus 48.8 cm 20 cm From Medial Malleolus 54.4 cm 30 cm From Medial Malleolus 55.7 cm 40 cm From Medial Malleolus 70.5 cm 50 cm From Medial Malleolus 83.3 cm 60 cm From Medial Malleolus 85 cm Knee Joint 56 cm PT-OP-Q Treatments Start: 06/27/21 16:44 Freq: Status: Active Protocol: Document 08/08/21 16:10 [facility] (Rec: 08/08/21 16:19 [facility] [id number]) Therapeutic Activity Therapeutic Activity w/c <> tx table transfers Name w/c <> tx table transfers Reps/Minutes 10 min Comments Pt requires max assist and is able to take shuffling steps during transfers only. Lymphedema Treatment Manual Lymphatic Drainage Location BLE Duration 50 min Comments Applied pneumatic pump to LLE and provided MLD proximally supraclavicular and trunk regfor natacha LE. Applied Cetaphil lotion BLE for skin care. Lymphedema Wrapping Body Location bilateral LE's Materials Absorbant dressing distal left foot covered with foam chip tied in end of stockinnette Tricofix size H natacha, coban right toes (unable on left as excess tissue covers toes and requires end of foot to be wrapped together). Artiflex, channel foam in anterior ankle crease, Comprilan, Coban, on left foot, calf, and thigh, Farrow wrap lower leg component applied left. On right Artiflex, Comprilan foot to below knee, then Farrow wrap lower leg component. PT-OP-R Modalities Start: 06/27/21 16:44 Freq: Status: Active Protocol: Document 08/08/21 16:10 [facility] (Rec: 08/08/21 16:20 [facility] [id number]) Compression Pump Treatment Treatment Location Left Leg Inflation Time (Seconds) 45 Deflation Time (Seconds) 15 Treatment Duration (minutes) 30 PT-OP-T Assessment and Plan Start: 06/27/21 16:44 Freq: Status: Active Protocol: Document 08/08/21 16:10 [facility] (Rec: 08/08/21 16:19 [facility] [id number]) Physical Therapy Assessment Goals Three Impairment weakness Impairment Max assist bed mobility, mod assist transfers, no ability to ambulate at this time. Fpc Goal (LTG) Patient will be independent with assistance of caregiver with HEP for purposes of facilitation of lymphatic flow and for full body strengthening to improve his lymphedema and overal functional independence LTG Duration 10/06/21 Two Impairment functional mobility Impairment Patient requires increased level of assistance for mobility: max assist bed, mod assist transfers and limited to transfers only instead of short distance ambulation Short Term Goal (STG) Patient will be able to ambulate 10' with mod assistance for purposes of ADL 's in the home STG Duration 08/18/21 Fpc Goal (LTG) Patient able to move in bed with mod assist, transfer sit to stand with min assist and ambulate 25 ft with min to mod assist of caregiver for short household distance household ambulation, assistance with edema reduction, and quality of life LTG Duration 10/01/21 One Impairment lymphedema bilateral LE's left greater than right Fpc Goal (LTG) Decrease lymphedema to stable level (no increase or decrease greater than 1 cm over the course of 1 week), patient and caregiver to be independent with self-management of lymphedema to include sequential lymphedema exercises, MLD, skin care, and compression bandaging. Patient will have appropriate supplies for long- term management of compression needs. LTG Duration 10/01/21 Assessment Summary Assessment Improved measurements bilaterally. Caregiver doing good job of bandaging. Hyperkeratosis persists bilaterally with pappilomas, left foot with open wound at end being cleaned and bandaged by caregiver, no signs or symptoms of infection. REcomended patient get order for wound care. Physical Therapy Plan Frequency and Duration Frequency of Treatment 20 visits Duration of Treatment 12 weeks Plan of Care Start Date 07/03/21 Plan of Care End Date 10/06/21 Next Visit Focus/Plan Next Note Type Treatment Note Next Visit Plan Continue lymphedema management with sequential pneumatic pump to left LE, proximal MLD, therapeutic exercise, bilateral bandaging of LE's; right LE toes to knee (per patient request for mobility needs, and left from toes to upper thigh. Request order for Flexitouch pump for bilateral LE's, and further discuss patient long-term needs with correctional case records supervisor.
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
--- NOTE | 2021-08-14 16:40 | PT.OTN ---
Current Diagnoses Obesity, unspecified (08/14/21) Hemiplegia and hemiparesis following cerebral infarction affecting left non-dominant side (08/14/21) Lymphedema, not elsewhere classified (08/14/21) Weakness (08/14/21) Physical Therapy Treatment Note PT-OP-A Visit Information Start: 06/27/21 16:44 Freq: Status: Active Protocol: Document 08/14/21 16:28 SAK (Rec: 08/14/21 16:40 SAK [id number]) Out-Patient Physical Therapy Visit Information Visit Information Visit Type Treatment Note Visit Start Time 14:30 Visit Stop Time 16:05 Total Visit Minutes 95 Visit Number 7 Evaluation Information Evaluation Date 07/03/21 Precautions Precautions prior CVA with left hemiparesis, elephantiasis natacha LE's left greater than right, unable to actively move left LE PT-OP-B Current Condition Start: 06/27/21 16:44 Freq: Status: Active Protocol: Document 07/03/21 14:15 SAK (Rec: 07/03/21 14:54 SAK [id number]) Current Condition History of Current Condition Onset Date 1994 Current Complaints lymphedema bilateral LE's left greater than right History of Current Condition Patient referred to PT for continued lymphedema management natacah LE's. Patient previously seen for lymphedema care and was also seen in wound care department. Patient has complicated history of lymphedema which started after he had CVA in 1994 resulting in left sided hemiparesis causing severly limited mobiity including use of power wheelchair for all mobility except short shuffling steps primarily during transfers. Patient lives alone and is unable to self-bandage or apply compressio alternative wraps ( Farrow wraps) due to hemiparesis. Has had sacral and LE wounds. Due to non- healing LE wounds and lack of ability to care for himself in the home back in November 2020, and not having skilled caregivers to help him manage, he was adminitted to SNF for 89 days. Was in [facility] in [place] for 89 days, went home Feb 10 2021 after wounds healed. To PT with caregiver Verona who is more experienced with bandaging but struggles with patient limited supplies. Reports now wound leaking again. Caregiver states in SNF Coban was being used to help manage the edema and wound but that they don't have that in the home, sister tries to help him purchase bandaging supplies but isn't always able to help. Caregiver uses what ever supplies Ale[facility] has. Compression Farrow wraps on thighs don't allow for safe transfers due to bulk so not wearing. Also reports doesn't have full set of Farrow wraps , didn't receive prior to leaving SNF. Working to get bandages paid for but insurance denies due to no wound. Patient today wearing Farrow wraps on lower legs only; no foot or thigh components, and reports while in SNF minimal physical activity and feels weaker as well. Prior Treatments and Tests wound care SNF admission 89 days Future Testing and Treatments Planned Sees Dr. Laird next week Treatment Goals Patient/Caregiver Goals decrease his LE lymphedema, obtain appropriate compression wraps, improve strength and mobility Prior Functional Status Baseline Function- ADL's Needs Assist Baseline Function- Mobility Needs Assist Baseline Function- Gait able to ambulate up to 15 ft Baseline Function- Work/School disabled Baseline Function- Recreation/Hobbies TV, baseball team [employer] Current Functional Impairments (Reported) Functional Limitations- ADL's needs max assist Functional Limitations- Mobility/Gait needs max assist Functional Limitations- Work/School ambulates with physical assist no more than 5 ft for transfers Personal Factors Other Personal Factors That May Effect Compliance with self-care Therapy/Recovery PT-OP-C Subjective Start: 06/27/21 16:44 Freq: Status: Active Protocol: Document 08/14/21 16:28 SAK (Rec: 08/14/21 16:40 [facility] [id number]) OP-PT Subjective Patient Comments Patient Comments Caregiver Verona to PT today with patient. No new c/o. Email from manager of case management Neda who will be going out to see patient on Thursday to resolve compression bandaging supply issues. PT-OP-D Balance Start: 06/27/21 16:44 Freq: Status: Active Protocol: Document 07/03/21 14:15 SAK (Rec: 07/03/21 17:36 [facility] [id number]) OP-PT Balance Assessment Sitting Balance Static Sitting Balance Ability Fair Standing Balance Static Standing Balance Ability Poor Dynamic Standing Balance Ability Poor Villafana Fall Scale Copyright Permission PT-OP-G Mobility & Gait Start: 06/27/21 16:44 Freq: Status: Active Protocol: Document 07/03/21 14:15 SAK (Rec: 07/03/21 17:36 [facility] [id number]) OP Mobility Evaluation Bed Mobility Rolling max assist Supine to and from Sit max assist Transfers Sit to Stand mod assist from elevated surface Bed to Chair Transfers mod assist from elevated surface, shuffling steps Car Transfers stays in w/c; transportation via w/c van Wheelchair Management Type of Wheelchair power chair Assessment Details able to drive independently. Unable to manage legrests or get leg onto leg rest; requires mod to mad assist PT-OP-J Posture/Palpation/Skin Start: 06/27/21 16:44 Freq: Status: Active Protocol: Document 07/03/21 14:15 [facility] (Rec: 07/03/21 17:36 [facility] [id number]) Skin Assessment Edema Assessment natacha LE's Edema Appearance Open Sores,Puffy Comments Lymphedema bilateral LE's left greater than right with papillomas, hyperkeratosis and elephentiasis and brownish discoloration on thighs and calves. End of left foot moist and odorous with soft white tissue, mild amount of drainage with prior wound opening up. PT-OP-N Lymphedema Start: 06/27/21 16:44 Freq: Status: Active Protocol: Document 08/14/21 16:28 [facility] (Rec: 08/14/21 16:40 [facility] [id number]) Lymphedema Measurements Lower Extremity Circumference Measurements Right Affected MT Heads 29.7 cm Mid-foot 31.3 cm Medial Malleolus 28.8 cm 10 cm From Medial Malleolus 37.7 cm 20 cm From Medial Malleolus 49.2 cm 30 cm From Medial Malleolus 59.4 cm 40 cm From Medial Malleolus 60.9 cm 50 cm From Medial Malleolus 73.4 cm 60 cm From Medial Malleolus 85 cm 70 cm From Medial Malleolus 87 cm Left Affected MT Heads 31.5 cm Mid-foot 35.2 cm Medial Malleolus 32 cm 10 cm From Medial Malleolus 47.7 cm 20 cm From Medial Malleolus 54 cm 30 cm From Medial Malleolus 59 cm 40 cm From Medial Malleolus 61 cm 50 cm From Medial Malleolus 73 cm 60 cm From Medial Malleolus 72 cm 70 cm From Medial Malleolus 90.8 cm PT-OP-Q Treatments Start: 06/27/21 16:44 Freq: Status: Active Protocol: Document 08/14/21 16:28 [facility] (Rec: 08/14/21 16:40 [facility] [id number]) Therapeutic Activity Therapeutic Activity w/c <> tx table transfers Name w/c <> tx table transfers Reps/Minutes 10 min Comments Pt requires max assist and is able to take shuffling steps during transfers only. Lymphedema Treatment Manual Lymphatic Drainage Location BLE Duration 50 min Comments Applied pneumatic pump to LLE and provided MLD proximally supraclavicular and trunk regfor natacha LE. Applied Cetaphil lotion BLE for skin care. Lymphedema Wrapping Body Location bilateral LE's Materials Absorbant dressing distal left foot covered with foam chip tied in end of stockinnette Tricofix size H natacha, Coban right toes (unable on left as excess tissue covers toes and requires end of foot to be wrapped together). Artiflex, channel foam in anterior ankle crease, Comprilan, Coban, on left foot, calf, and thigh, Farrow wrap lower leg component applied left. On right Artiflex, Comprilan foot to below knee, then Farrow wrap lower leg component. PT-OP-R Modalities Start: 06/27/21 16:44 Freq: Status: Active Protocol: Document 08/14/21 16:28 [facility] (Rec: 08/14/21 16:40 [facility] [id number]) Compression Pump Treatment Treatment Location Left Leg Inflation Time (Seconds) 45 Deflation Time (Seconds) 15 Treatment Duration (minutes) 30 PT-OP-T Assessment and Plan Start: 06/27/21 16:44 Freq: Status: Active Protocol: Document 08/14/21 16:28 [facility] (Rec: 08/14/21 16:40 [facility] [id number]) Physical Therapy Assessment Goals Three Impairment weakness Impairment Max assist bed mobility, mod assist transfers, no ability to ambulate at this time. Mental Hygiene Consultant Goal (LTG) Patient will be independent with assistance of caregiver with HEP for purposes of facilitation of lymphatic flow and for full body strengthening to improve his lymphedema and overal functional independence LTG Duration 10/06/21 Two Impairment functional mobility Impairment Patient requires increased level of assistance for mobility: max assist bed, mod assist transfers and limited to transfers only instead of short distance ambulation Short Term Goal (STG) Patient will be able to ambulate 10' with mod assistance for purposes of ADL 's in the home STG Duration 08/18/21 Shelter Goal (LTG) Patient able to move in bed with mod assist, transfer sit to stand with min assist and ambulate 25 ft with min to mod assist of caregiver for short household distance household ambulation, assistance with edema reduction, and quality of life LTG Duration 10/01/21 One Impairment lymphedema bilateral LE's left greater than right Mental Hygiene Consultant Goal (LTG) Decrease lymphedema to stable level (no increase or decrease greater than 1 cm over the course of 1 week), patient and caregiver to be independent with self-management of lymphedema to include sequential lymphedema exercises, MLD, skin care, and compression bandaging. Patient will have appropriate supplies for long- term management of compression needs. LTG Duration 10/01/21 Assessment Summary Assessment Again noted improvements in some measurements left (foot and lower leg), but increased in knee due to bandaging sliding down and causing tourniquet effect left proximal thigh (bandaged by caregiver on Thursday as no PT). On right leg measurements larger in foot, smaller in lower leg (see measurement form). Continue to problem solve bandaging left distal foot with increased compression distally with chip bag under comprilan and Coban . Some improvement in wound noted. Still recomending wound care visit by patient for recommendations for current care of distal foot wound. Physical Therapy Plan Next Visit Focus/Plan Next Note Type Treatment Note Next Visit Plan Continue lymphedema management with sequential pneumatic pump to left LE, proximal MLD, therapeutic exercise, bilateral bandaging of LE's; right LE toes to knee (per patient request for mobility needs, and left from toes to upper thigh.
--- NOTE | 2021-08-19 16:32 | PT.OTN ---
Current Diagnoses Obesity, unspecified (08/19/21) Hemiplegia and hemiparesis following cerebral infarction affecting left non-dominant side (08/19/21) Lymphedema, not elsewhere classified (08/19/21) Weakness (08/19/21) Physical Therapy Treatment Note PT-OP-A Visit Information Start: 06/27/21 16:44 Freq: Status: Active Protocol: Document 08/19/21 16:16 SAK (Rec: 08/19/21 16:32 SAK [id number]) Out-Patient Physical Therapy Visit Information Visit Information Visit Type Treatment Note Visit Start Time 14:30 Visit Stop Time 15:40 Total Visit Minutes 70 Visit Number 8 Evaluation Information Evaluation Date 07/03/21 Precautions Precautions prior CVA with left hemiparesis, elephantiasis natacha LE's left greater than right, unable to actively move left LE PT-OP-B Current Condition Start: 06/27/21 16:44 Freq: Status: Active Protocol: Document 07/03/21 14:15 SAK (Rec: 07/03/21 14:54 SAK [id number]) Current Condition History of Current Condition Onset Date 1994 Current Complaints lymphedema bilateral LE's left greater than right History of Current Condition Patient referred to PT for continued lymphedema management natacha LE's. Patient previously seen for lymphedema care and was also seen in wound care department. Patient has complicated history of lymphedema which started after he had CVA in 1994 resulting in left sided hemiparesis causing severly limited mobiity including use of power wheelchair for all mobility except short shuffling steps primarily during transfers. Patient lives alone and is unable to self-bandage or apply compressio alternative wraps ( Farrow wraps) due to hemiparesis. Has had sacral and LE wounds. Due to non- healing LE wounds and lack of ability to care for himself in the home back in November 2020, and not having skilled caregivers to help him manage, he was adminitted to SNF for 89 days. Was in [facility] in [place] for 89 days, went home Feb 10 2021 after wounds healed. To PT with caregiver Verona who is more experienced with bandaging but struggles with patient limited supplies. Reports now wound leaking again. Caregiver states in SNF Coban was being used to help manage the edema and wound but that they don't have that in the home, sister tries to help him purchase bandaging supplies but isn't always able to help. Caregiver uses what ever supplies Ale[facility] has. Compression Farrow wraps on thighs don't allow for safe transfers due to bulk so not wearing. Also reports doesn't have full set of Farrow wraps , didn't receive prior to leaving SNF. Working to get bandages paid for but insurance denies due to no wound. Patient today wearing Farrow wraps on lower legs only; no foot or thigh components, and reports while in SNF minimal physical activity and feels weaker as well. Prior Treatments and Tests wound care SNF admission 89 days Future Testing and Treatments Planned Sees Dr. Laird next week Treatment Goals Patient/Caregiver Goals decrease his LE lymphedema, obtain appropriate compression wraps, improve strength and mobility Prior Functional Status Baseline Function- ADL's Needs Assist Baseline Function- Mobility Needs Assist Baseline Function- Gait able to ambulate up to 15 ft Baseline Function- Work/School disabled Baseline Function- Recreation/Hobbies TV, baseball team [employer] Current Functional Impairments (Reported) Functional Limitations- ADL's needs max assist Functional Limitations- Mobility/Gait needs max assist Functional Limitations- Work/School ambulates with physical assist no more than 5 ft for transfers Personal Factors Other Personal Factors That May Effect Compliance with self-care Therapy/Recovery PT-OP-C Subjective Start: 06/27/21 16:44 Freq: Status: Active Protocol: Document 08/19/21 16:16 [facility] (Rec: 08/19/21 16:32 [facility] [id number]) OP-PT Subjective Patient Comments Patient Comments No caregiver with patient today; reports she came this am and bandaged him. Has appointment with commercial carpenter tomorrow. Spoke by phone with caregiver who stated she will be by in am to get him ready for his appointment and can bandage again. [place] decision not to rebandage due to shortage of bandaging supplies and current bandaging from this am intact and well done. Will focus on proximal MLD and ther ex today. District Court Bailiff Neda came to see him on Thursday and continues to work on getting more adequate bandaging supplies covered for him. PT-OP-D Balance Start: 06/27/21 16:44 Freq: Status: Active Protocol: Document 07/03/21 14:15 SAK (Rec: 07/03/21 17:36 [facility] [id number]) OP-PT Balance Assessment Sitting Balance Static Sitting Balance Ability Fair Standing Balance Static Standing Balance Ability Poor Dynamic Standing Balance Ability Poor Villafana Fall Scale Copyright Permission PT-OP-G Mobility & Gait Start: 06/27/21 16:44 Freq: Status: Active Protocol: Document 07/03/21 14:15 [facility] (Rec: 07/03/21 17:36 [facility] [id number]) OP Mobility Evaluation Bed Mobility Rolling max assist Supine to and from Sit max assist Transfers Sit to Stand mod assist from elevated surface Bed to Chair Transfers mod assist from elevated surface, shuffling steps Car Transfers stays in w/c; transportation via w/c van Wheelchair Management Type of Wheelchair power chair Assessment Details able to drive independently. Unable to manage legrests or get leg onto leg rest; requires mod to mad assist PT-OP-J Posture/Palpation/Skin Start: 06/27/21 16:44 Freq: Status: Active Protocol: Document 07/03/21 14:15 [facility] (Rec: 07/03/21 17:36 [facility] [id number]) Skin Assessment Edema Assessment natacha LE's Edema Appearance Open Sores,Puffy Comments Lymphedema bilateral LE's left greater than right with papillomas, hyperkeratosis and elephentiasis and brownish discoloration on thighs and calves. End of left foot moist and odorous with soft white tissue, mild amount of drainage with prior wound opening up. PT-OP-N Lymphedema Start: 06/27/21 16:44 Freq: Status: Active Protocol: Document 08/19/21 16:16 [facility] (Rec: 08/19/21 16:32 [facility] [id number]) Lymphedema Measurements Lower Extremity Circumference Measurements Right Affected - not measured as patient remained bandaged. Left Affected - not measured as patient remained bandaged. PT-OP-Q Treatments Start: 06/27/21 16:44 Freq: Status: Active Protocol: Document 08/19/21 16:16 [facility] (Rec: 08/19/21 16:32 [facility] [id number]) Therapeutic Exercises Supine Exercises crunches Reps/Minutes 10x Sitting Exercises scapular squeezes Reps/Minutes 10x Comments no movement left, verbal and manual cues crunches Reps/Minutes 10x Comments 2 pillows behind sit to stand Reps/Minutes 5x Therapeutic Activity Therapeutic Activity w/c <> tx table transfers Name w/c <> tx table transfers Reps/Minutes 10 min Comments with table or w/c elevated sit to stand with CG to min assist. Patient able to ambulate with WBQC and CGA of 2 6 feet from treatment table to w/c with short, shuffling steps, no LOB noted. Lymphedema Treatment Manual Lymphatic Drainage Location BLE Duration 20 min Comments Provided MLD proximally with emphasis on AIA pathways, right thigh and knee above bandaging. Lymphedema Wrapping Other intact from bandaging this am, to remain on 24 hrs Sequential Lymphedema Exercises Location bilateral LE's Duration 12 min Comments AROM right, PROM left PT-OP-R Modalities Start: 06/27/21 16:44 Freq: Status: Active Protocol: Document 08/14/21 16:28 SAK (Rec: 08/14/21 16:40 [facility] [id number]) Compression Pump Treatment Treatment Location Left Leg Inflation Time (Seconds) 45 Deflation Time (Seconds) 15 Treatment Duration (minutes) 30 PT-OP-T Assessment and Plan Start: 06/27/21 16:44 Freq: Status: Active Protocol: Document 08/19/21 16:16 [facility] (Rec: 08/19/21 16:32 [facility] [id number]) Physical Therapy Assessment Goals Three Impairment weakness Impairment Max assist bed mobility, mod assist transfers, no ability to ambulate at this time. Half-Way Goal (LTG) Patient will be independent with assistance of caregiver with HEP for purposes of facilitation of lymphatic flow and for full body strengthening to improve his lymphedema and overal functional independence LTG Duration 10/06/21 Two Impairment functional mobility Impairment Patient requires increased level of assistance for mobility: max assist bed, mod assist transfers and limited to transfers only instead of short distance ambulation Short Term Goal (STG) Patient will be able to ambulate 10' with mod assistance for purposes of ADL 's in the home STG Duration 08/18/21 Half-Way Goal (LTG) Patient able to move in bed with mod assist, transfer sit to stand with min assist and ambulate 25 ft with min to mod assist of caregiver for short household distance household ambulation, assistance with edema reduction, and quality of life LTG Duration 10/01/21 One Impairment lymphedema bilateral LE's left greater than right Deputy County Attorney Goal (LTG) Decrease lymphedema to stable level (no increase or decrease greater than 1 cm over the course of 1 week), patient and caregiver to be independent with self-management of lymphedema to include sequential lymphedema exercises, MLD, skin care, and compression bandaging. Patient will have appropriate supplies for long- term management of compression needs. LTG Duration 10/01/21 Assessment Summary Assessment no measurements taken due to bandaging intact and mutual decision to focus more on MLD and ther ex today. Patient able to ambulate further today as not exhausted by bandaging . Casemanager continues to work on obtaining appropriate supplies, await compression garments. Physical Therapy Plan Next Visit Focus/Plan Next Note Type Treatment Note Next Visit Plan Contact Allies about compression garments and caser in about bandaging supplies. Caregiver bandaging technique continues to improve, was intact and well done when patient arrived today so not redone but able to focus on ther ex along with MLD.
--- NOTE | 2021-08-21 17:12 | PT.OTN ---
Current Diagnoses Obesity, unspecified (08/21/21) Hemiplegia and hemiparesis following cerebral infarction affecting left non-dominant side (08/21/21) Lymphedema, not elsewhere classified (08/21/21) Weakness (08/21/21) Physical Therapy Treatment Note PT-OP-A Visit Information Start: 06/27/21 16:44 Freq: Status: Active Protocol: Document 08/21/21 16:50 AW (Rec: 08/21/21 17:12 AW [email or web address]) Out-Patient Physical Therapy Visit Information Visit Information Visit Type Treatment Note Visit Start Time 15:15 Visit Stop Time 16:50 Total Visit Minutes 95 Visit Number 9 Evaluation Information Evaluation Date 07/03/21 Precautions Precautions prior CVA with left hemiparesis, elephantiasis natacha LE's left greater than right, unable to actively move left LE PT-OP-B Current Condition Start: 06/27/21 16:44 Freq: Status: Active Protocol: Document 07/03/21 14:15 SAK (Rec: 07/03/21 14:54 SAK [id number]) Current Condition History of Current Condition Onset Date 1994 Current Complaints lymphedema bilateral LE's left greater than right History of Current Condition Patient referred to PT for continued lymphedema management natacha LE's. Patient previously seen for lymphedema care and was also seen in wound care department. Patient has complicated history of lymphedema which started after he had CVA in 1994 resulting in left sided hemiparesis causing severly limited mobiity including use of power wheelchair for all mobility except short shuffling steps primarily during transfers. Patient lives alone and is unable to self-bandage or apply compressio alternative wraps ( Farrow wraps) due to hemiparesis. Has had sacral and LE wounds. Due to non- healing LE wounds and lack of ability to care for himself in the home back in November 2020, and not having skilled caregivers to help him manage, he was adminitted to SNF for 89 days. Was in [facility] in [place] for 89 days, went home Feb 10 2021 after wounds healed. To PT with caregiver Verona who is more experienced with bandaging but struggles with patient limited supplies. Reports now wound leaking again. Caregiver states in SNF Coban was being used to help manage the edema and wound but that they don't have that in the home, sister tries to help him purchase bandaging supplies but isn't always able to help. Caregiver uses what ever supplies [facility] has. Compression Farrow wraps on thighs don't allow for safe transfers due to bulk so not wearing. Also reports doesn't have full set of Farrow wraps , didn't receive prior to leaving SNF. Working to get bandages paid for but insurance denies due to no wound. Patient today wearing Farrow wraps on lower legs only; no foot or thigh components, and reports while in SNF minimal physical activity and feels weaker as well. Prior Treatments and Tests wound care SNF admission 89 days Future Testing and Treatments Planned Sees Dr. Laird next week Treatment Goals Patient/Caregiver Goals decrease his LE lymphedema, obtain appropriate compression wraps, improve strength and mobility Prior Functional Status Baseline Function- ADL's Needs Assist Baseline Function- Mobility Needs Assist Baseline Function- Gait able to ambulate up to 15 ft Baseline Function- Work/School disabled Baseline Function- Recreation/Hobbies TV, baseball team [employer] Current Functional Impairments (Reported) Functional Limitations- ADL's needs max assist Functional Limitations- Mobility/Gait needs max assist Functional Limitations- Work/School ambulates with physical assist no more than 5 ft for transfers Personal Factors Other Personal Factors That May Effect Compliance with self-care Therapy/Recovery PT-OP-C Subjective Start: 06/27/21 16:44 Freq: Status: Active Protocol: Document 08/21/21 16:50 AW (Rec: 08/21/21 17:12 AW [email or web address]) OP-PT Subjective Patient Comments Patient Comments Caregiver Verona is present today. She provided a note from Dr. Walden who is recommending application of gentian nikolas (an antifungal) to the interweb spaces of the left toes every few days. PT-OP-D Balance Start: 06/27/21 16:44 Freq: Status: Active Protocol: Document 07/03/21 14:15 SAK (Rec: 07/03/21 17:36 SAK [id number]) OP-PT Balance Assessment Sitting Balance Static Sitting Balance Ability Fair Standing Balance Static Standing Balance Ability Poor Dynamic Standing Balance Ability Poor Villafana Fall Scale Copyright Permission PT-OP-G Mobility & Gait Start: 06/27/21 16:44 Freq: Status: Active Protocol: Document 07/03/21 14:15 SAK (Rec: 07/03/21 17:36 SAK [id number]) OP Mobility Evaluation Bed Mobility Rolling max assist Supine to and from Sit max assist Transfers Sit to Stand mod assist from elevated surface Bed to Chair Transfers mod assist from elevated surface, shuffling steps Car Transfers stays in w/c; transportation via w/c van Wheelchair Management Type of Wheelchair power chair Assessment Details able to drive independently. Unable to manage legrests or get leg onto leg rest; requires mod to mad assist PT-OP-J Posture/Palpation/Skin Start: 06/27/21 16:44 Freq: Status: Active Protocol: Document 07/03/21 14:15 [facility] (Rec: 07/03/21 17:36 [facility] [id number]) Skin Assessment Edema Assessment natacha LE's Edema Appearance Open Sores,Puffy Comments Lymphedema bilateral LE's left greater than right with papillomas, hyperkeratosis and elephentiasis and brownish discoloration on thighs and calves. End of left foot moist and odorous with soft white tissue, mild amount of drainage with prior wound opening up. PT-OP-N Lymphedema Start: 06/27/21 16:44 Freq: Status: Active Protocol: Document 08/21/21 16:50 AW (Rec: 08/21/21 17:12 AW [email or web address]) Lymphedema Measurements Lower Extremity Circumference Measurements Right Affected MT Heads 28.5 cm Mid-foot 30 cm Medial Malleolus 28.5 cm 10 cm From Medial Malleolus 37.4 cm 20 cm From Medial Malleolus 48.8 cm 30 cm From Medial Malleolus 58 cm 40 cm From Medial Malleolus 61.2 cm 50 cm From Medial Malleolus 76.2 cm 60 cm From Medial Malleolus 83.2 cm Left Affected MT Heads 34.5 cm Mid-foot 38.9 cm Medial Malleolus 35 cm 10 cm From Medial Malleolus 46 cm 20 cm From Medial Malleolus 54.7 cm 30 cm From Medial Malleolus 59.3 cm - no measurements proximally due to time constraints PT-OP-Q Treatments Start: 06/27/21 16:44 Freq: Status: Active Protocol: Document 08/21/21 16:50 AW (Rec: 08/21/21 17:12 AW [email or web address]) Therapeutic Activity Therapeutic Activity w/c <> tx table transfers Name w/c <> tx table transfers Reps/Minutes 10 min Comments Max assist with caregiver with shuffling steps during transfers. Lymphedema Treatment Manual Lymphatic Drainage Location BLE Duration 50 min Comments Applied pneumatic pump to LLE and provided MLD proximally supraclavicular and trunk regfor natacha LE. Applied Cetaphil lotion BLE for skin care. Lymphedema Wrapping Body Location bilat LE Materials Absorbant dressing distal left foot covered with Tricofix size H natacha, Coban right toes (unable on left as excess tissue covers toes and requires end of foot to be wrapped together). Artiflex, channel foam in anterior ankle crease, Comprilan, Coban, on left foot, calf, and thigh, Farrow wrap lower leg component applied left. On right Artiflex, Comprilan foot to below knee, then Farrow wrap lower leg component. Sequential Lymphedema Exercises Location bilateral LE's Duration 5 min Comments AROM right, PROM left PT-OP-R Modalities Start: 06/27/21 16:44 Freq: Status: Active Protocol: Document 08/21/21 16:50 AW (Rec: 08/21/21 17:12 AW [email or web address]) Compression Pump Treatment Treatment Location Left Leg Inflation Time (Seconds) 45 Deflation Time (Seconds) 15 Treatment Duration (minutes) 40 PT-OP-T Assessment and Plan Start: 06/27/21 16:44 Freq: Status: Active Protocol: Document 08/21/21 16:50 AW (Rec: 08/21/21 17:12 AW [email or web address]) Physical Therapy Assessment Goals Three Impairment weakness Impairment Max assist bed mobility, mod assist transfers, no ability to ambulate at this time. [employer] Goal (LTG) Patient will be independent with assistance of caregiver with HEP for purposes of facilitation of lymphatic flow and for full body strengthening to improve his lymphedema and overal functional independence LTG Duration 10/06/21 Two Impairment functional mobility Impairment Patient requires increased level of assistance for mobility: max assist bed, mod assist transfers and limited to transfers only instead of short distance ambulation Short Term Goal (STG) Patient will be able to ambulate 10' with mod assistance for purposes of ADL 's in the home STG Duration 08/18/21 Digital Media [employer]anner Goal (LTG) Patient able to move in bed with mod assist, transfer sit to stand with min assist and ambulate 25 ft with min to mod assist of caregiver for short household distance household ambulation, assistance with edema reduction, and quality of life LTG Duration 10/01/21 One Impairment lymphedema bilateral LE's left greater than right Digital Media Planner Goal (LTG) Decrease lymphedema to stable level (no increase or decrease greater than 1 cm over the course of 1 week), patient and caregiver to be independent with self-management of lymphedema to include sequential lymphedema exercises, MLD, skin care, and compression bandaging. Patient will have appropriate supplies for long- term management of compression needs. LTG Duration 10/01/21 Assessment Summary Assessment Limited measurements taken today due to time constraints. RLE shows fair reduction in most measurement. LLE stable or increased in distal measurements. Continue to recommend wound care visit for evaluation of distal foot wound. Physical Therapy Plan Next Visit Focus/Plan Next Note Type Treatment Note Next Visit Plan Contact [employer] about compression garments and case picker about bandaging supplies. Caregiver bandaging technique continues to improve, was intact and well done when patient arrived today so not redone but able to focus on ther ex along with MLD.
--- NOTE | 2021-08-26 14:13 | PT-OP ANOTE ---
same day cancel, reason unknown
--- NOTE | 2021-09-19 17:29 | PT.OTN ---
Current Diagnoses Obesity, unspecified (09/19/21) Hemiplegia and hemiparesis following cerebral infarction affecting left non-dominant side (09/19/21) Lymphedema, not elsewhere classified (09/19/21) Weakness (09/19/21) Physical Therapy Treatment Note PT-OP-A Visit Information Start: 06/27/21 16:44 Freq: Status: Active Protocol: Document 09/19/21 17:16 AW (Rec: 09/19/21 17:29 AW [email or web address]) Out-Patient Physical Therapy Visit Information Visit Information Visit Type Treatment Note Visit Note Caregiver Verona is present today. She provided min assist with LLE positioning during wrapping Visit Start Time 14:30 Visit Stop Time 16:00 Total Visit Minutes 90 Visit Number 10 Evaluation Information Evaluation Date 07/03/21 Precautions Precautions prior CVA with left hemiparesis, elephantiasis natacha LE's left greater than right, unable to actively move left LE PT-OP-B Current Condition Start: 06/27/21 16:44 Freq: Status: Active Protocol: Document 07/03/21 14:15 SAK (Rec: 07/03/21 14:54 SAK [id number]) Current Condition History of Current Condition Onset Date 1994 Current Complaints lymphedema bilateral LE's left greater than right History of Current Condition Patient referred to PT for continued lymphedema management natacha LE's. Patient previously seen for lymphedema care and was also seen in wound care department. Patient has complicated history of lymphedema which started after he had CVA in 1994 resulting in left sided hemiparesis causing severly limited mobiity including use of power wheelchair for all mobility except short shuffling steps primarily during transfers. Patient lives alone and is unable to self-bandage or apply compressio alternative wraps ( Farrow wraps) due to hemiparesis. Has had sacral and LE wounds. Due to non- healing LE wounds and lack of ability to care for himself in the home back in November 2020, and not having skilled caregivers to help him manage, he was adminitted to SNF for 89 days. Was in [facility] in [place] for 89 days, went home Feb 10 2021 after wounds healed. To PT with caregiver Verona who is more experienced with bandaging but struggles with patient limited supplies. Reports now wound leaking again. Caregiver states in SNF Coban was being used to help manage the edema and wound but that they don't have that in the home, sister tries to help him purchase bandaging supplies but isn't always able to help. Caregiver uses what ever supplies [facility] has. Compression Farrow wraps on thighs don't allow for safe transfers due to bulk so not wearing. Also reports doesn't have full set of Farrow wraps , didn't receive prior to leaving SNF. Working to get bandages paid for but insurance denies due to no wound. Patient today wearing Farrow wraps on lower legs only; no foot or thigh components, and reports while in SNF minimal physical activity and feels weaker as well. Prior Treatments and Tests wound care SNF admission 89 days Future Testing and Treatments Planned Sees Dr. Laird next week Treatment Goals Patient/Caregiver Goals decrease his LE lymphedema, obtain appropriate compression wraps, improve strength and mobility Prior Functional Status Baseline Function- ADL's Needs Assist Baseline Function- Mobility Needs Assist Baseline Function- Gait able to ambulate up to 15 ft Baseline Function- Work/School disabled Baseline Function- Recreation/Hobbies TV, baseball team [employer] Current Functional Impairments (Reported) Functional Limitations- ADL's needs max assist Functional Limitations- Mobility/Gait needs max assist Functional Limitations- Work/School ambulates with physical assist no more than 5 ft for transfers Personal Factors Other Personal Factors That May Effect Compliance with self-care Therapy/Recovery PT-OP-C Subjective Start: 06/27/21 16:44 Freq: Status: Active Protocol: Document 09/19/21 17:16 AW (Rec: 09/19/21 17:29 AW [email or web address]) OP-PT Subjective Patient Comments Patient Comments Pt is in good spirits and happy he could make it in to therapy today. PT-OP-D Balance Start: 06/27/21 16:44 Freq: Status: Active Protocol: Document 07/03/21 14:15 SAK (Rec: 07/03/21 17:36 SAK [id number]) OP-PT Balance Assessment Sitting Balance Static Sitting Balance Ability Fair Standing Balance Static Standing Balance Ability Poor Dynamic Standing Balance Ability Poor Villafana Fall Scale Copyright Permission PT-OP-G Mobility & Gait Start: 06/27/21 16:44 Freq: Status: Active Protocol: Document 07/03/21 14:15 SAK (Rec: 07/03/21 17:36 SAK [id number]) OP Mobility Evaluation Bed Mobility Rolling max assist Supine to and from Sit max assist Transfers Sit to Stand mod assist from elevated surface Bed to Chair Transfers mod assist from elevated surface, shuffling steps Car Transfers stays in w/c; transportation via w/c [place] Wheelchair Management Type of Wheelchair power chair Assessment Details able to drive independently. Unable to manage legrests or get leg onto leg rest; requires mod to mad assist PT-OP-J Posture/Palpation/Skin Start: 06/27/21 16:44 Freq: Status: Active Protocol: Document 07/03/21 14:15 [facility] (Rec: 07/03/21 17:36 [facility] [id number]) Skin Assessment Edema Assessment natacha LE's Edema Appearance Open Sores,Puffy Comments Lymphedema bilateral LE's left greater than right with papillomas, hyperkeratosis and elephentiasis and brownish discoloration on thighs and calves. End of left foot moist and odorous with soft white tissue, mild amount of drainage with prior wound opening up. PT-OP-N Lymphedema Start: 06/27/21 16:44 Freq: Status: Active Protocol: Document 09/19/21 17:16 AW (Rec: 09/19/21 17:29 AW [email or web address]) Lymphedema Measurements Lower Extremity Circumference Measurements Right Affected MT Heads 27.4 cm Mid-foot 29.3 cm Medial Malleolus 28.6 cm 10 cm From Medial Malleolus 36.7 cm 20 cm From Medial Malleolus 47 cm 30 cm From Medial Malleolus 57 cm 40 cm From Medial Malleolus 60.5 cm 50 cm From Medial Malleolus 78.6 cm Knee Joint 58.6 cm Left Affected - LLE not measured due to time constraints Comments Lymphedema Comments Reduction in all but most proximal measurements on RLE compared with last visit. PT-OP-Q Treatments Start: 06/27/21 16:44 Freq: Status: Active Protocol: Document 09/19/21 17:16 AW (Rec: 09/19/21 17:29 AW [email or web address]) Therapeutic Activity Therapeutic Activity w/c <> tx table transfers Name w/c <> tx table transfers Reps/Minutes 10 min Comments Max assist with caregiver and hurrycane. Shuffling steps during transfers. Lymphedema Treatment Manual Lymphatic Drainage Location BLE Duration 50 min Comments Applied pneumatic pump to LLE and provided MLD proximally supraclavicular and trunk reg for natacha LE. Applied Cetaphil lotion BLE for skin care. Lymphedema Wrapping Body Location bilat LE Materials Absorbant dressing distal left foot covered with Tricofix size H natacha, Coban right toes (unable on left as excess tissue covers toes and requires end of foot to be wrapped together). Artiflex, channel foam in anterior ankle crease, Comprilan, Coban, on left foot, calf, and thigh, Farrow wrap lower leg component applied left. On right Artiflex, Comprilan foot to below knee, then Farrow wrap lower leg component. Sequential Lymphedema Exercises Location bilateral LE's Duration 5 min Comments AROM right, PROM left PT-OP-R Modalities Start: 06/27/21 16:44 Freq: Status: Active Protocol: Document 09/19/21 17:16 AW (Rec: 09/19/21 17:29 AW [email or web address]) Compression Pump Treatment Treatment Location Left Leg Inflation Time (Seconds) 45 Deflation Time (Seconds) 15 Treatment Duration (minutes) 40 PT-OP-T Assessment and Plan Start: 06/27/21 16:44 Freq: Status: Active Protocol: Document 09/19/21 17:16 AW (Rec: 09/19/21 17:29 AW [email or web address]) Physical Therapy Assessment Goals Three Impairment weakness Impairment Max assist bed mobility, mod assist transfers, no ability to ambulate at this time. Halfway Goal (LTG) Patient will be independent with assistance of caregiver with HEP for purposes of facilitation of lymphatic flow and for full body strengthening to improve his lymphedema and overal functional independence LTG Duration 10/06/21 Two Impairment functional mobility Impairment Patient requires increased level of assistance for mobility: max assist bed, mod assist transfers and limited to transfers only instead of short distance ambulation Short Term Goal (STG) Patient will be able to ambulate 10' with mod assistance for purposes of ADL 's in the home STG Duration 08/18/21 [employer] Goal (LTG) Patient able to move in bed with mod assist, transfer sit to stand with min assist and ambulate 25 ft with min to mod assist of caregiver for short household distance household ambulation, assistance with edema reduction, and quality of life LTG Duration 10/01/21 One Impairment lymphedema bilateral LE's left greater than right [employer] Goal (LTG) Decrease lymphedema to stable level (no increase or decrease greater than 1 cm over the course of 1 week), patient and caregiver to be independent with self-management of lymphedema to include sequential lymphedema exercises, MLD, skin care, and compression bandaging. Patient will have appropriate supplies for long- term management of compression needs. LTG Duration 10/01/21 Assessment Summary Assessment RLE continues to show fair reduction. Did not measure LLE today due to time constraints . Level of assist for transfers is slightly improved and pt is participating more, using [employer] cane. Pt is now being followed by wound care and caregiver applied gentamicin sulfate cream prior to wrapping distal LLE today per wound care recommendation. Physical Therapy Plan Next Visit Focus/Plan Next Note Type Treatment Note Next Visit Plan Contact [employer] about compression garments and skilled nursing case manager about bandaging supplies. Caregiver bandaging technique continues to improve, was intact and well done when patient arrived today so not redone but able to focus on ther ex along with MLD.
--- NOTE | 2021-09-25 16:40 | PT.OTN ---
Current Diagnoses Obesity, unspecified (09/25/21) Hemiplegia and hemiparesis following cerebral infarction affecting left non-dominant side (09/25/21) Lymphedema, not elsewhere classified (09/25/21) Weakness (09/25/21) Physical Therapy Treatment Note PT-OP-A Visit Information Start: 06/27/21 16:44 Freq: Status: Active Protocol: Document 09/25/21 16:26 SAK (Rec: 09/25/21 16:40 [facility]AK [id number]) Out-Patient Physical Therapy Visit Information Visit Information Visit Type Treatment Note Visit Start Time 14:30 Visit Stop Time 16:00 Total Visit Minutes 90 Visit Number 11 Evaluation Information Evaluation Date 07/03/21 Precautions Precautions prior CVA with left hemiparesis, elephantiasis natacha LE's left greater than right, unable to actively move left LE PT-OP-B Current Condition Start: 06/27/21 16:44 Freq: Status: Active Protocol: Document 07/03/21 14:15 SAK (Rec: 07/03/21 14:54 [facility]AK [id number]) Current Condition History of Current Condition Onset Date 1994 Current Complaints lymphedema bilateral LE's left greater than right History of Current Condition Patient referred to PT for continued lymphedema management natacha LE's. Patient previously seen for lymphedema care and was also seen in wound care department. Patient has complicated history of lymphedema which started after he had CVA in 1994 resulting in left sided hemiparesis causing severly limited mobiity including use of power wheelchair for all mobility except short shuffling steps primarily during transfers. Patient lives alone and is unable to self-bandage or apply compressio alternative wraps ( Farrow wraps) due to hemiparesis. Has had sacral and LE wounds. Due to non- healing LE wounds and lack of ability to care for himself in the home back in November 2020, and not having skilled caregivers to help him manage, he was adminitted to SNF for 89 days. Was in [facility] in [place] for 89 days, went home Feb 10 2021 after wounds healed. To PT with caregiver Verona who is more experienced with bandaging but struggles with patient limited supplies. Reports now wound leaking again. Caregiver states in SNF Coban was being used to help manage the edema and wound but that they don't have that in the home, sister tries to help him purchase bandaging supplies but isn't always able to help. Caregiver uses what ever supplies Ale[facility] has. Compression Farrow wraps on thighs don't allow for safe transfers due to bulk so not wearing. Also reports doesn't have full set of Farrow wraps , didn't receive prior to leaving SNF. Working to get bandages paid for but insurance denies due to no wound. Patient today wearing Farrow wraps on lower legs only; no foot or thigh components, and reports while in SNF minimal physical activity and feels weaker as well. Prior Treatments and Tests wound care SNF admission 89 days Future Testing and Treatments Planned Sees Dr. Laird next week Treatment Goals Patient/Caregiver Goals decrease his LE lymphedema, obtain appropriate compression wraps, improve strength and mobility Prior Functional Status Baseline Function- ADL's Needs Assist Baseline Function- Mobility Needs Assist Baseline Function- Gait able to ambulate up to 15 ft Baseline Function- Work/School disabled Baseline Function- Recreation/Hobbies TV, baseball team [employer] Current Functional Impairments (Reported) Functional Limitations- ADL's needs max assist Functional Limitations- Mobility/Gait needs max assist Functional Limitations- Work/School ambulates with physical assist no more than 5 ft for transfers Personal Factors Other Personal Factors That May Effect Compliance with self-care Therapy/Recovery PT-OP-C Subjective Start: 06/27/21 16:44 Freq: Status: Active Protocol: Document 09/25/21 16:26 [facility] (Rec: 09/25/21 16:40 [facility] [id number]) OP-PT Subjective Patient Comments Patient Comments No new c/o. Caregiver Verona present for treatment . She has been unable to see patient since Thursday due to weather so bandaging not very intact. office manager receptionist/clinical social worker unable to attend appointment due to weather. PT-OP-D Balance Start: 06/27/21 16:44 Freq: Status: Active Protocol: Document 07/03/21 14:15 SAK (Rec: 07/03/21 17:36 [facility] [id number]) OP-PT Balance Assessment Sitting Balance Static Sitting Balance Ability Fair Standing Balance Static Standing Balance Ability Poor Dynamic Standing Balance Ability Poor Villafana Fall Scale Copyright Permission PT-OP-G Mobility & Gait Start: 06/27/21 16:44 Freq: Status: Active Protocol: Document 07/03/21 14:15 SAK (Rec: 07/03/21 17:36 [facility] [id number]) OP Mobility Evaluation Bed Mobility Rolling max assist Supine to and from Sit max assist Transfers Sit to Stand mod assist from elevated surface Bed to Chair Transfers mod assist from elevated surface, shuffling steps Car Transfers stays in w/c; transportation via w/c van Wheelchair Management Type of Wheelchair power chair Assessment Details able to drive independently. Unable to manage legrests or get leg onto leg rest; requires mod to mad assist PT-OP-J Posture/Palpation/Skin Start: 06/27/21 16:44 Freq: Status: Active Protocol: Document 07/03/21 14:15 [facility] (Rec: 07/03/21 17:36 [facility] [id number]) Skin Assessment Edema Assessment natacha LE's Edema Appearance Open Sores,Puffy Comments Lymphedema bilateral LE's left greater than right with papillomas, hyperkeratosis and elephentiasis and brownish discoloration on thighs and calves. End of left foot moist and odorous with soft white tissue, mild amount of drainage with prior wound opening up. PT-OP-N Lymphedema Start: 06/27/21 16:44 Freq: Status: Active Protocol: Document 09/25/21 16:26 [facility] (Rec: 09/25/21 16:40 [facility] [id number]) Lymphedema Measurements Lower Extremity Circumference Measurements Right Affected MT Heads 29 cm Mid-foot 30 cm Medial Malleolus 30.7 cm 10 cm From Medial Malleolus 28.7 cm 20 cm From Medial Malleolus 36 cm 30 cm From Medial Malleolus 48.8 cm 40 cm From Medial Malleolus 56.4 cm 50 cm From Medial Malleolus 61.8 cm 60 cm From Medial Malleolus 83 cm 70 cm From Medial Malleolus 89.2 cm Knee Joint 57.1 cm Left Affected MT Heads 36 cm Mid-foot 37.7 cm Medial Malleolus 32.7 cm 10 cm From Medial Malleolus 37 cm 20 cm From Medial Malleolus 48.5 cm 30 cm From Medial Malleolus 54 cm 40 cm From Medial Malleolus 60.8 cm 50 cm From Medial Malleolus 78 cm 60 cm From Medial Malleolus 82.8 cm 70 cm From Medial Malleolus 86.4 cm Knee Joint 60.8 cm Comments Lymphedema Comments \ PT-OP-Q Treatments Start: 06/27/21 16:44 Freq: Status: Active Protocol: Document 09/25/21 16:26 [facility] (Rec: 09/25/21 16:40 [facility] [id number]) Therapeutic Activity Therapeutic Activity w/c <> tx table transfers Name w/c <> tx table transfers Reps/Minutes 10 min Comments Max assist with caregiver and hurrycane. Shuffling steps during transfers. Lymphedema Treatment Manual Lymphatic Drainage Location BLE Duration 50 min Comments Applied pneumatic pump to LLE and provided MLD proximally supraclavicular and trunk reg for natacha LE. Applied Cetaphil lotion BLE for skin care. Lymphedema Wrapping Body Location bilat LE Materials Absorbant dressing distal left foot secured with gauze bandage, covered with Tricofix size H natacha, Coban right toes (unable on left as excess tissue covers toes and requires end of foot to be wrapped together). Artiflex, channel foam in anterior ankle crease, Comprilan, Coban, on left foot, calf, and thigh, Farrow wrap lower leg component applied left. On right Artiflex, Comprilan foot to below knee, then Farrow wrap lower leg component. PT-OP-R Modalities Start: 06/27/21 16:44 Freq: Status: Active Protocol: Document 09/25/21 16:26 [facility] (Rec: 09/25/21 16:40 [facility] [id number]) Compression Pump Treatment Treatment Location Left Leg Inflation Time (Seconds) 45 Deflation Time (Seconds) 15 Treatment Duration (minutes) 40 PT-OP-T Assessment and Plan Start: 06/27/21 16:44 Freq: Status: Active Protocol: Document 09/25/21 16:26 [facility] (Rec: 09/25/21 16:40 [facility] [id number]) Physical Therapy Assessment Goals Three Impairment weakness Impairment Max assist bed mobility, mod assist transfers, no ability to ambulate at this time. Prison Goal (LTG) Patient will be independent with assistance of caregiver with HEP for purposes of facilitation of lymphatic flow and for full body strengthening to improve his lymphedema and overal functional independence LTG Duration 10/06/21 Two Impairment functional mobility Impairment Patient requires increased level of assistance for mobility: max assist bed, mod assist transfers and limited to transfers only instead of short distance ambulation Short Term Goal (STG) Patient will be able to ambulate 10' with mod assistance for purposes of ADL 's in the home STG Duration 08/18/21 Manager Trade Marketing Goal (LTG) Patient able to move in bed with mod assist, transfer sit to stand with min assist and ambulate 25 ft with min to mod assist of caregiver for short household distance household ambulation, assistance with edema reduction, and quality of life LTG Duration 10/01/21 One Impairment lymphedema bilateral LE's left greater than right Manager Trade Marketing Goal (LTG) Decrease lymphedema to stable level (no increase or decrease greater than 1 cm over the course of 1 week), patient and caregiver to be independent with self-management of lymphedema to include sequential lymphedema exercises, MLD, skin care, and compression bandaging. Patient will have appropriate supplies for long- term management of compression needs. LTG Duration 10/01/21 Assessment Summary Assessment Measurements overall continue to decrease with minimal open areas left distal foot, improved tissue mobility bilateral lower legs. Despite leaving messages have not heard back from [employer], left another message today. Physical Therapy Plan Next Visit Focus/Plan Next Note Type Treatment Note Next Visit Plan Continue to follow-up with Jay regarding compression garments. Continue lymphedema management as continue to see improvement. Assure good fit of compression garments.
--- NOTE | 2021-10-02 16:29 | PT.OTN ---
Current Diagnoses Obesity, unspecified (10/02/21) Hemiplegia and hemiparesis following cerebral infarction affecting left non-dominant side (10/02/21) Lymphedema, not elsewhere classified (10/02/21) Weakness (10/02/21) Physical Therapy Treatment Note PT-OP-A Visit Information Start: 06/27/21 16:44 Freq: Status: Active Protocol: Document 10/02/21 14:25 SAK (Rec: 10/02/21 14:48 [facility] [id number]) Out-Patient Physical Therapy Visit Information Visit Information Visit Type Aquatic Treatment Note Visit Start Time 14:30 Visit Stop Time 15:58 Total Visit Minutes 88 Visit Number 12 Evaluation Information Evaluation Date 07/03/21 Precautions Precautions prior CVA with left hemiparesis, elephantiasis natacha LE's left greater than right, unable to actively move left LE PT-OP-B Current Condition Start: 06/27/21 16:44 Freq: Status: Active Protocol: Document 07/03/21 14:15 SAK (Rec: 07/03/21 14:54 [facility] [id number]) Current Condition History of Current Condition Onset Date 1994 Current Complaints lymphedema bilateral LE's left greater than right History of Current Condition Patient referred to PT for continued lymphedema management natacha LE's. Patient previously seen for lymphedema care and was also seen in wound care department. Patient has complicated history of lymphedema which started after he had CVA in 1994 resulting in left sided hemiparesis causing severly limited mobiity including use of power wheelchair for all mobility except short shuffling steps primarily during transfers. Patient lives alone and is unable to self-bandage or apply compressio alternative wraps ( Farrow wraps) due to hemiparesis. Has had sacral and LE wounds. Due to non- healing LE wounds and lack of ability to care for himself in the home back in November 2020, and not having skilled caregivers to help him manage, he was adminitted to SNF for 89 days. Was in [facility] in [place] for 89 days, went home Feb 10 2021 after wounds healed. To PT with caregiver Verona who is more experienced with bandaging but struggles with patient limited supplies. Reports now wound leaking again. Caregiver states in SNF Coban was being used to help manage the edema and wound but that they don't have that in the home, sister tries to help him purchase bandaging supplies but isn't always able to help. Caregiver uses what ever supplies [facility] has. Compression Farrow wraps on thighs don't allow for safe transfers due to bulk so not wearing. Also reports doesn't have full set of Farrow wraps , didn't receive prior to leaving SNF. Working to get bandages paid for but insurance denies due to no wound. Patient today wearing Farrow wraps on lower legs only; no foot or thigh components, and reports while in SNF minimal physical activity and feels weaker as well. Prior Treatments and Tests wound care SNF admission 89 days Future Testing and Treatments Planned Sees Dr. Laird next week Treatment Goals Patient/Caregiver Goals decrease his LE lymphedema, obtain appropriate compression wraps, improve strength and mobility Prior Functional Status Baseline Function- ADL's Needs Assist Baseline Function- Mobility Needs Assist Baseline Function- Gait able to ambulate up to 15 ft Baseline Function- Work/School disabled Baseline Function- Recreation/Hobbies TV, baseball team [email or web address] Current Functional Impairments (Reported) Functional Limitations- ADL's needs max assist Functional Limitations- Mobility/Gait needs max assist Functional Limitations- Work/School ambulates with physical assist no more than 5 ft for transfers Personal Factors Other Personal Factors That May Effect Compliance with self-care Therapy/Recovery PT-OP-C Subjective Start: 06/27/21 16:44 Freq: Status: Active Protocol: Document 10/02/21 14:25 [facility]AK (Rec: 10/02/21 14:48 [facility] [id number]) OP-PT Subjective Patient Comments Patient Comments information manager Flakito present to consult regarding Farrow wraps. Patient discharged from wound care today, Dr. Pantoja wrote new order as prior order written by Dr. Laird back in June likely not good anymore. Patient and case checker informed PT was finally able to talk with Traci from [facility] in [place] regarding if received insurance approval for Farrow wraps. She is to get back to me. PT to send new order to Jay for Farrow Wraps from wound care physician Dr. Dennys Valladares. Patient being referred to a plastic surgeon regarding possibility of surgery left foot. PT-OP-D Balance Start: 06/27/21 16:44 Freq: Status: Active Protocol: Document 07/03/21 14:15 SAK (Rec: 07/03/21 17:36 [facility]AK [id number]) OP-PT Balance Assessment Sitting Balance Static Sitting Balance Ability Fair Standing Balance Static Standing Balance Ability Poor Dynamic Standing Balance Ability Poor Villafana Fall Scale Copyright Permission PT-OP-G Mobility & Gait Start: 06/27/21 16:44 Freq: Status: Active Protocol: Document 07/03/21 14:15 [facility] (Rec: 07/03/21 17:36 [facility] [id number]) OP Mobility Evaluation Bed Mobility Rolling max assist Supine to and from Sit max assist Transfers Sit to Stand mod assist from elevated surface Bed to Chair Transfers mod assist from elevated surface, shuffling steps Car Transfers stays in w/c; transportation via w/c van Wheelchair Management Type of Wheelchair power chair Assessment Details able to drive independently. Unable to manage legrests or get leg onto leg rest; requires mod to mad assist PT-OP-J Posture/Palpation/Skin Start: 06/27/21 16:44 Freq: Status: Active Protocol: Document 07/03/21 14:15 [facility] (Rec: 07/03/21 17:36 [facility] [id number]) Skin Assessment Edema Assessment natacha LE's Edema Appearance Open Sores,Puffy Comments Lymphedema bilateral LE's left greater than right with papillomas, hyperkeratosis and elephentiasis and brownish discoloration on thighs and calves. End of left foot moist and odorous with soft white tissue, mild amount of drainage with prior wound opening up. PT-OP-N Lymphedema Start: 06/27/21 16:44 Freq: Status: Active Protocol: Document 10/02/21 14:25 [facility] (Rec: 10/02/21 16:28 [facility] [id number]) Lymphedema Measurements Lower Extremity Circumference Measurements Right Affected - see measurement form Left Affected - see measurement form Comments Lymphedema Comments variability in measurements today likely due to not being bandaged for 2 hours due to wound care appointment prior to PT. PT-OP-Q Treatments Start: 06/27/21 16:44 Freq: Status: Active Protocol: Document 10/02/21 14:25 [facility] (Rec: 10/02/21 16:28 [facility] [id number]) Therapeutic Activity Therapeutic Activity w/c <> tx table transfers Name w/c <> tx table transfers Reps/Minutes 10 min Comments Max assist with caregiver and hurrycane. Shuffling steps during transfers. Lymphedema Treatment Manual Lymphatic Drainage Location BLE Duration 50 min Comments Applied pneumatic pump to LLE and provided MLD proximally supraclavicular and trunk reg for natacha LE. Applied Cetaphil lotion BLE for skin care. Lymphedema Wrapping Body Location bilat LE Materials Absorbant dressing distal left foot secured with gauze bandage, covered with Tricofix size H natacha, Coban right toes (unable on left as excess tissue covers toes and requires end of foot to be wrapped together). Artiflex, channel foam in anterior ankle crease, Comprilan, Coban, on left foot, calf, and thigh, Farrow wrap lower leg component applied left. On right Artiflex, Comprilan foot to below knee, then Farrow wrap lower leg component. Sequential Lymphedema Exercises Location bilateral LE's Duration 5 min Comments AROM right, PROM left PT-OP-R Modalities Start: 06/27/21 16:44 Freq: Status: Active Protocol: Document 10/02/21 14:25 [facility] (Rec: 10/02/21 16:28 [facility] [id number]) Compression Pump Treatment Treatment Location Left Leg Inflation Time (Seconds) 45 Deflation Time (Seconds) 15 Treatment Duration (minutes) 40 PT-OP-T Assessment and Plan Start: 06/27/21 16:44 Freq: Status: Active Protocol: Document 10/02/21 14:25 [facility] (Rec: 10/02/21 16:28 [facility] [id number]) Physical Therapy Assessment Goals Three Impairment weakness Impairment Max assist bed mobility, mod assist transfers, no ability to ambulate at this time. Supervisor Stage [employer] Goal (LTG) Patient will be independent with assistance of caregiver with HEP for purposes of facilitation of lymphatic flow and for full body strengthening to improve his lymphedema and overal functional independence LTG Duration 10/06/21 Two Impairment functional mobility Impairment Patient requires increased level of assistance for mobility: max assist bed, mod assist transfers and limited to transfers only instead of short distance ambulation Short Term Goal (STG) Patient will be able to ambulate 10' with mod assistance for purposes of ADL 's in the home STG Duration 08/18/21 Assisted Goal (LTG) Patient able to move in bed with mod assist, transfer sit to stand with min assist and ambulate 25 ft with min to mod assist of caregiver for short household distance household ambulation, assistance with edema reduction, and quality of life LTG Duration 10/01/21 One Impairment lymphedema bilateral LE's left greater than right Assisted Goal (LTG) Decrease lymphedema to stable level (no increase or decrease greater than 1 cm over the course of 1 week), patient and caregiver to be independent with self-management of lymphedema to include sequential lymphedema exercises, MLD, skin care, and compression bandaging. Patient will have appropriate supplies for long- term management of compression needs. LTG Duration 10/01/21 Assessment Summary Assessment Spoke with Traci Thompson today who is looking into what happened with order for Farrow Wraps for patient. New order sent from Dr. Jacquelyn dill. Continue with lymphedema management until patient can be fit with appropriate compression garments (FArrow wraps) for bilateral LE's. Patient continues to benefit with improved soft tissue texture, healing of wound, decreased circumferential measurements. Physical Therapy Plan Next Visit Focus/Plan Next Note Type Treatment Note Next Visit Plan Further follow-up with Jay regarding order for Farrow wraps for patient. Continue lymphedema management until able to be fit with garments and still progressing with PT.
--- NOTE | 2021-10-24 17:28 | PT.OTRE ---
Current Diagnoses Obesity, unspecified (10/24/21) Hemiplegia and hemiparesis following cerebral infarction affecting left non-dominant side (10/24/21) Lymphedema, not elsewhere classified (10/24/21) Weakness (10/24/21) Past Medical History (Last Reviewed 06/27/20 @ 13:05 by Dago Wayne MD) Asthma Chronic acquired lymphedema HTN (hypertension) Hyperlipidemia Morbid obesity with body mass index (BMI) of 40.0 to 49.9 Obstructive sleep apnea (04/03/20) Visit Care Team Role Provider Type Rayray Laird MD Attending Provider Non-Staff Primary Care Provider Referring Provider Specialty: [facility] Address: [address] [place] [address], [facility] Email: Physical Therapy Re-Evaluation PT-OP-A Visit Information Start: 06/27/21 16:44 Freq: Status: Active Protocol: Document 10/24/21 10:32 SAK (Rec: 10/24/21 10:41 SAK [id number]) Out-Patient Physical Therapy Visit Information Visit Information Visit Type Treatment Note Visit Start Time 10:32 Visit Stop Time 12:02 Total Visit Minutes 90 Visit Number 13 Evaluation Information Evaluation Date 07/03/21 Precautions Precautions prior CVA with left hemiparesis, elephantiasis natacha LE's left greater than right, unable to actively move left LE PT-OP-B Current Condition Start: 06/27/21 16:44 Freq: Status: Active Protocol: Document 07/03/21 14:15 SAK (Rec: 07/03/21 14:54 SAK [id number]) Current Condition History of Current Condition Onset Date 1994 Current Complaints lymphedema bilateral LE's left greater than right History of Current Condition Patient referred to PT for continued lymphedema management natacha LE's. Patient previously seen for lymphedema care and was also seen in wound care department. Patient has complicated history of lymphedema which started after he had CVA in 1994 resulting in left sided hemiparesis causing severly limited mobiity including use of power wheelchair for all mobility except short shuffling steps primarily during transfers. Patient lives alone and is unable to self-bandage or apply compressio alternative wraps ( Farrow wraps) due to hemiparesis. Has had sacral and LE wounds. Due to non- healing LE wounds and lack of ability to care for himself in the home back in November 2020, and not having skilled caregivers to help him manage, he was adminitted to SNF for 89 days. Was in [facility] in [place] for 89 days, went home Feb 10 2021 after wounds healed. To PT with caregiver Verona who is more experienced with bandaging but struggles with patient limited supplies. Reports now wound leaking again. Caregiver states in SNF Coban was being used to help manage the edema and wound but that they don't have that in the home, sister tries to help him purchase bandaging supplies but isn't always able to help. Caregiver uses what ever supplies [facility] has. Compression Farrow wraps on thighs don't allow for safe transfers due to bulk so not wearing. Also reports doesn't have full set of Farrow wraps , didn't receive prior to leaving SNF. Working to get bandages paid for but insurance denies due to no wound. Patient today wearing Farrow wraps on lower legs only; no foot or thigh components, and reports while in SNF minimal physical activity and feels weaker as well. Prior Treatments and Tests wound care SNF admission 89 days Future Testing and Treatments Planned Sees Dr. Laird next week Treatment Goals Patient/Caregiver Goals decrease his LE lymphedema, obtain appropriate compression wraps, improve strength and mobility Prior Functional Status Baseline Function- ADL's Needs Assist Baseline Function- Mobility Needs Assist Baseline Function- Gait able to ambulate up to 15 ft Baseline Function- Work/School disabled Baseline Function- Recreation/Hobbies TV, baseball team [employer] Current Functional Impairments (Reported) Functional Limitations- ADL's needs max assist Functional Limitations- Mobility/Gait needs max assist Functional Limitations- Work/School ambulates with physical assist no more than 5 ft for transfers Personal Factors Other Personal Factors That May Effect Compliance with self-care Therapy/Recovery PT-OP-C Subjective Start: 06/27/21 16:44 Freq: Status: Active Protocol: Document 10/24/21 10:32 THADDEUS (Rec: 10/24/21 10:41 THADDEUS [id number]) OP-PT Subjective Patient Comments Patient Comments Caregiver reports patient had a pappiloma burst this am, some bleeding but ok. Appointment with plastic surgeon has been cancelled due to patient being too risky per patient; won't touch me with a 10 foot pole. Hasn't heard from Traci flores Jay or from andrew Red. Patient refused bandaging on Thursday due to too sore, but caregiver reports overall swelling has been stable. PT-OP-D Balance Start: 06/27/21 16:44 Freq: Status: Active Protocol: Document 07/03/21 14:15 [facility] (Rec: 07/03/21 17:36 [facility] [id number]) OP-PT Balance Assessment Sitting Balance Static Sitting Balance Ability Fair Standing Balance Static Standing Balance Ability Poor Dynamic Standing Balance Ability Poor Villafana Fall Scale Copyright Permission Ledy JM, Ledy RM, Remi SJ. Development of a scale to identify the fall- prone patient. Can J Aging 1989;8;366-7. Kobe Villafana (2009). Preventing patient falls. (2nd ed). [place]: [place]. PT-OP-G Mobility & Gait Start: 06/27/21 16:44 Freq: Status: Active Protocol: Document 07/03/21 14:15 [facility] (Rec: 07/03/21 17:36 [facility] [id number]) OP Mobility Evaluation Bed Mobility Rolling max assist Supine to and from Sit max assist Transfers Sit to Stand mod assist from elevated surface Bed to Chair Transfers mod assist from elevated surface, shuffling steps Car Transfers stays in w/c; transportation via w/c van Wheelchair Management Type of Wheelchair power chair Assessment Details able to drive independently. Unable to manage legrests or get leg onto leg rest; requires mod to mad assist PT-OP-J Posture/Palpation/Skin Start: 06/27/21 16:44 Freq: Status: Active Protocol: Document 07/03/21 14:15 [facility] (Rec: 07/03/21 17:36 [facility] [id number]) Skin Assessment Edema Assessment natacha LE's Edema Appearance Open Sores,Puffy Comments Lymphedema bilateral LE's left greater than right with papillomas, hyperkeratosis and elephentiasis and brownish discoloration on thighs and calves. End of left foot moist and odorous with soft white tissue, mild amount of drainage with prior wound opening up. PT-OP-N Lymphedema Start: 06/27/21 16:44 Freq: Status: Active Protocol: Document 10/02/21 14:25 [facility] (Rec: 10/02/21 16:28 [facility] [id number]) Lymphedema Measurements Lower Extremity Circumference Measurements Right Affected - see measurement form Left Affected - see measurement form Comments Lymphedema Comments variability in measurements today likely due to not being bandaged for 2 hours due to wound care appointment prior to PT. PT-OP-Q Treatments Start: 06/27/21 16:44 Freq: Status: Active Protocol: Document 10/24/21 10:32 [facility] (Rec: 10/24/21 10:41 [facility] [id number]) Lymphedema Treatment Manual Lymphatic Drainage Location BLE Duration 50 min Comments Applied pneumatic pump to LLE and provided MLD proximally supraclavicular and trunk reg for natacha LE. Applied Cetaphil lotion BLE for skin care. Lymphedema Wrapping Body Location bilat LE Materials Absorbant dressing distal left foot secured with gauze bandage, covered with Tricofix size H natacha, Coban right toes (unable on left as excess tissue covers toes and requires end of foot to be wrapped together). Artiflex, channel foam in anterior ankle crease, Comprilan, Coban, on left foot, calf, and thigh, Farrow wrap lower leg component applied left. On right Artiflex, Comprilan foot to below knee, then Farrow wrap lower leg component. Sequential Lymphedema Exercises Location bilateral LE's Duration 5 min Comments AROM right, PROM left Compression Garment Assessment Compression Garment Assessment Details sent email to Traci Thompson to check on status of compression bandages PT-OP-R Modalities Start: 06/27/21 16:44 Freq: Status: Active Protocol: Document 10/24/21 10:32 [facility] (Rec: 10/24/21 10:41 [facility] [id number]) Compression Pump Treatment Treatment Location Left Leg Inflation Time (Seconds) 45 Deflation Time (Seconds) 15 Treatment Duration (minutes) 40 PT-OP-T Assessment and Plan Start: 06/27/21 16:44 Freq: Status: Active Protocol: Document 10/24/21 10:32 [facility] (Rec: 10/24/21 10:41 [facility] [id number]) Physical Therapy Assessment Goals Three Impairment weakness Impairment Max assist bed mobility, mod assist transfers, no ability to ambulate at this time. Technician Inventory Specialist Goal (LTG) Patient will be independent with assistance of caregiver with HEP for purposes of facilitation of lymphatic flow and for full body strengthening to improve his lymphedema and overal functional independence LTG Duration goal achieved Two Impairment functional mobility Impairment Patient requires increased level of assistance for mobility: max assist bed, mod assist transfers and limited to transfers only instead of short distance ambulation Short Term Goal (STG) Patient will be able to ambulate 10' with mod assistance for purposes of ADL 's in the home STG Duration goal achieved Nursing Home Goal (LTG) Patient able to move in bed with mod assist, transfer sit to stand with min assist and ambulate 25 ft with min to mod assist of caregiver for short household distance household ambulation, assistance with edema reduction, and quality of life 10/24/21: goal progress LTG Duration 12/23/21 One Impairment lymphedema bilateral LE's left greater than right Technician Inventory Specialist Goal (LTG) Decrease lymphedema to stable level (no increase or decrease greater than 1 cm over the course of 1 week), patient and caregiver to be independent with self-management of lymphedema to include sequential lymphedema exercises, MLD, skin care, and compression bandaging. Patient will have appropriate supplies for long- term management of compression needs, and obtain new compression garments with good fit. 10/24/21: patient and caregiver continue to struggle with having enough bandaging supplies for patient. Hasn't yet received new compression bandages that were ordered; PT left message to check on status. LTG Duration 12/23/21 Assessment Summary Assessment Patient measurements variable in LE's mostly stable, decreased lower legs, same or increased in feet, and increased in thighs due to inconsistent bandaging above knee. Patient continues to struggle with papilomas bilateral thighs due to this. No drainage from distal left foot. Caregiver doing good job of bandaging especially given limited supplies that it has been difficult to get covered by insurance. New Farrow wraps have been ordered for patient but not yet received. He will need new Farrow Wraps every 6 months for a lifetime as well as bandaging materials especially for bilateral distal feet due to lack of compression provided by Farrow wraps to distal feet or toes. Feel patient would do best in care facility where he could receive daily care for his lymphedema and mobility needs. Physical Therapy Plan Frequency and Duration Frequency of Treatment 4 visits Duration of Treatment 8 weeks Plan of Care Start Date 10/24/21 Plan of Care End Date 12/23/21 Therapeutic Interventions Therapeutic Interventions Home Exercise Program, Lymphedema Management,Manual Therapy,Self-Care/Home Management,Therapeutic Activities,Therapeutic Exercises Next Visit Focus/Plan Next Note Type Treatment Note Next Visit Plan Further follow-up with [facility] regarding order for Farrow wraps for patient. Continue lymphedema management until able to be fit with appropriate compression garments and achieve PT goals.
--- NOTE | 2021-10-24 17:28 | PT.OPPOC ---
Physical, Occupational & Speech Therapy At [facility] Current Diagnoses Obesity, unspecified (10/24/21) Hemiplegia and hemiparesis following cerebral infarction affecting left non-dominant side (10/24/21) Lymphedema, not elsewhere classified (10/24/21) Weakness (10/24/21) Visit Care Team Role Provider Type Rayray Laird MD Attending Provider Non-Staff Primary Care Provider Referring Provider Specialty: [facility] Address: [address] [place] [address], [facility] Email: Plan Of Care PT-OP-T Assessment and Plan Start: 06/27/21 16:44 Freq: Status: Active Protocol: Document 10/24/21 10:32 SAK (Rec: 10/24/21 10:41 SAK [id number]) Physical Therapy Assessment Goals Three Impairment weakness Impairment Max assist bed mobility, mod assist transfers, no ability to ambulate at this time. Maitre D Goal (LTG) Patient will be independent with assistance of caregiver with HEP for purposes of facilitation of lymphatic flow and for full body strengthening to improve his lymphedema and overal functional independence LTG Duration goal achieved Two Impairment functional mobility Impairment Patient requires increased level of assistance for mobility: max assist bed, mod assist transfers and limited to transfers only instead of short distance ambulation Short Term Goal (STG) Patient will be able to ambulate 10' with mod assistance for purposes of ADL 's in the home STG Duration goal achieved Maitre D Goal (LTG) Patient able to move in bed with mod assist, transfer sit to stand with min assist and ambulate 25 ft with min to mod assist of caregiver for short household distance household ambulation, assistance with edema reduction, and quality of life 10/24/21: goal progress LTG Duration 12/23/21 One Impairment lymphedema bilateral LE's left greater than right Maitre D Goal (LTG) Decrease lymphedema to stable level (no increase or decrease greater than 1 cm over the course of 1 week), patient and caregiver to be independent with self-management of lymphedema to include sequential lymphedema exercises, MLD, skin care, and compression bandaging. Patient will have appropriate supplies for long- term management of compression needs, and obtain new compression garments with good fit. 10/24/21: patient and caregiver continue to struggle with having enough bandaging supplies for patient. Hasn't yet received new compression bandages that were ordered; PT left message to check on status. LTG Duration 12/23/21 Assessment Summary Assessment Patient measurements variable in LE's mostly stable, decreased lower legs, same or increased in feet, and increased in thighs due to inconsistent bandaging above knee. Patient continues to struggle with papilomas bilateral thighs due to this. No drainage from distal left foot. Caregiver doing good job of bandaging especially given limited supplies that it has been difficult to get covered by insurance. New Farrow wraps have been ordered for patient but not yet received. He will need new Farrow Wraps every 6 months for a lifetime as well as bandaging materials especially for bilateral distal feet due to lack of compression provided by Farrow wraps to distal feet or toes. Feel patient would do best in care facility where he could receive daily care for his lymphedema and mobility needs. Physical Therapy Plan Frequency and Duration Frequency of Treatment 4 visits Duration of Treatment 8 weeks Plan of Care Start Date 10/24/21 Plan of Care End Date 12/23/21 Therapeutic Interventions Therapeutic Interventions Home Exercise Program, Lymphedema Management,Manual Therapy,Self-Care/Home Management,Therapeutic Activities,Therapeutic Exercises Next Visit Focus/Plan Next Note Type Treatment Note Next Visit Plan Further follow-up with [facility] regarding order for Farrow wraps for patient. Continue lymphedema management until able to be fit with appropriate compression garments and achieve PT goals. Plan of Care Dates Plan of Care Start Date 10/24/21 Plan of Care End Date 12/23/21 Electronically Signed by: Lamar Keith, PT 10/24/21 [id number] Please Sign and Return: I have reviewed this Plan of Care and certify that the skilled therapy services above are required to meet the patient?s needs. Physician Signature Date Printed Name and Credentials Clinical Instructor Signature Printed Name and Credentials
--- NOTE | 2021-11-26 16:28 | PT.OTN ---
Current Diagnoses Obesity, unspecified (11/26/21) Hemiplegia and hemiparesis following cerebral infarction affecting left non-dominant side (11/26/21) Lymphedema, not elsewhere classified (11/26/21) Weakness (11/26/21) Physical Therapy Treatment Note PT-OP-A Visit Information Start: 06/27/21 16:44 Freq: Status: Active Protocol: Document 11/26/21 16:15 [facility] (Rec: 11/26/21 16:28 [facility]AK [id number]) Out-Patient Physical Therapy Visit Information Visit Information Visit Type Treatment Note Visit Start Time 14:30 Visit Stop Time 16:00 Total Visit Minutes 90 Visit Number 14 Evaluation Information Evaluation Date 07/03/21 Precautions Precautions prior CVA with left hemiparesis, elephantiasis natacha LE's left greater than right, unable to actively move left LE PT-OP-B Current Condition Start: 06/27/21 16:44 Freq: Status: Active Protocol: Document 07/03/21 14:15 [facility]AK (Rec: 07/03/21 14:54 [facility]AK [id number]) Current Condition History of Current Condition Onset Date 1994 Current Complaints lymphedema bilateral LE's left greater than right History of Current Condition Patient referred to PT for continued lymphedema management natacha LE's. Patient previously seen for lymphedema care and was also seen in wound care department. Patient has complicated history of lymphedema which started after he had CVA in 1994 resulting in left sided hemiparesis causing severly limited mobiity including use of power wheelchair for all mobility except short shuffling steps primarily during transfers. Patient lives alone and is unable to self-bandage or apply compressio alternative wraps ( Farrow wraps) due to hemiparesis. Has had sacral and LE wounds. Due to non- healing LE wounds and lack of ability to care for himself in the home back in November 2020, and not having skilled caregivers to help him manage, he was adminitted to SNF for 89 days. Was in [facility] in [place] for 89 days, went home Feb 10 2021 after wounds healed. To PT with caregiver Verona who is more experienced with bandaging but struggles with patient limited supplies. Reports now wound leaking again. Caregiver states in SNF Coban was being used to help manage the edema and wound but that they don't have that in the home, sister tries to help him purchase bandaging supplies but isn't always able to help. Caregiver uses what ever supplies Alejandro has. Compression Farrow wraps on thighs don't allow for safe transfers due to bulk so not wearing. Also reports doesn't have full set of Farrow wraps , didn't receive prior to leaving SNF. Working to get bandages paid for but insurance denies due to no wound. Patient today wearing Farrow wraps on lower legs only; no foot or thigh components, and reports while in SNF minimal physical activity and feels weaker as well. Prior Treatments and Tests wound care SNF admission 89 days Future Testing and Treatments Planned Sees Dr. Laird next week Treatment Goals Patient/Caregiver Goals decrease his LE lymphedema, obtain appropriate compression wraps, improve strength and mobility Prior Functional Status Baseline Function- ADL's Needs Assist Baseline Function- Mobility Needs Assist Baseline Function- Gait able to ambulate up to 15 ft Baseline Function- Work/School disabled Baseline Function- Recreation/Hobbies TV, baseball team [employer] Current Functional Impairments (Reported) Functional Limitations- ADL's needs max assist Functional Limitations- Mobility/Gait needs max assist Functional Limitations- Work/School ambulates with physical assist no more than 5 ft for transfers Personal Factors Other Personal Factors That May Effect Compliance with self-care Therapy/Recovery PT-OP-C Subjective Start: 06/27/21 16:44 Freq: Status: Active Protocol: Document 11/26/21 16:15 [facility] (Rec: 11/26/21 16:28 [facility] [id number]) OP-PT Subjective Patient Comments Patient Comments Medicaid director of casework present at beginning of session; she reports Farrow wraps have been denied for patient. Discussion with her, patient, caregiver regarding PT recommendation for care facility where he could get the care and garments he needs . He refuses. Further discussion that caregiver is doing good job with compression bandaging, no open wounds, progress plateaued, today will be last PT session. PT-OP-D Balance Start: 06/27/21 16:44 Freq: Status: Active Protocol: Document 07/03/21 14:15 [facility] (Rec: 07/03/21 17:36 [facility] [id number]) OP-PT Balance Assessment Sitting Balance Static Sitting Balance Ability Fair Standing Balance Static Standing Balance Ability Poor Dynamic Standing Balance Ability Poor Villafana Fall Scale Copyright Permission PT-OP-G Mobility & Gait Start: 06/27/21 16:44 Freq: Status: Active Protocol: Document 07/03/21 14:15 [facility] (Rec: 07/03/21 17:36 [facility] [id number]) OP Mobility Evaluation Bed Mobility Rolling max assist Supine to and from Sit max assist Transfers Sit to Stand mod assist from elevated surface Bed to Chair Transfers mod assist from elevated surface, shuffling steps Car Transfers stays in w/c; transportation via w/c van Wheelchair Management Type of Wheelchair power chair Assessment Details able to drive independently. Unable to manage legrests or get leg onto leg rest; requires mod to mad assist PT-OP-J Posture/Palpation/Skin Start: 06/27/21 16:44 Freq: Status: Active Protocol: Document 07/03/21 14:15 [facility] (Rec: 07/03/21 17:36 [facility] [id number]) Skin Assessment Edema Assessment natacha LE's Edema Appearance Open Sores,Puffy Comments Lymphedema bilateral LE's left greater than right with papillomas, hyperkeratosis and elephentiasis and brownish discoloration on thighs and calves. End of left foot moist and odorous with soft white tissue, mild amount of drainage with prior wound opening up. PT-OP-N Lymphedema Start: 06/27/21 16:44 Freq: Status: Active Protocol: Document 10/02/21 14:25 [facility] (Rec: 10/02/21 16:28 [facility] [id number]) Lymphedema Measurements Lower Extremity Circumference Measurements Right Affected - see measurement form Left Affected - see measurement form Comments Lymphedema Comments variability in measurements today likely due to not being bandaged for 2 hours due to wound care appointment prior to PT. PT-OP-Q Treatments Start: 06/27/21 16:44 Freq: Status: Active Protocol: Document 11/26/21 16:15 [facility] (Rec: 11/26/21 16:28 [facility] [id number]) Therapeutic Activity Therapeutic Activity w/c <> tx table transfers Name w/c <> tx table transfers Reps/Minutes 10 min Comments Max assist with caregiver and hurrycane. Shuffling steps during transfers. Lymphedema Treatment Manual Lymphatic Drainage Location BLE Duration 50 min Comments Applied pneumatic pump to LLE and provided MLD proximally supraclavicular and trunk reg for natacha LE. Applied Cetaphil lotion BLE for skin care. Lymphedema Wrapping Body Location bilat LE Materials Absorbant dressing distal left foot secured with gauze bandage, covered with Tricofix size H natacha, Coban right toes (unable on left as excess tissue covers toes and requires end of foot to be wrapped together). Artiflex, channel foam in anterior ankle crease, Comprilan, Coban, on left foot, calf, and thigh, Farrow wrap lower leg component applied left. On right Artiflex, Comprilan foot to below knee, then Farrow wrap lower leg component. Sequential Lymphedema Exercises Location bilateral LE's Duration 5 min Comments AROM right, PROM left Compression Garment Assessment Compression Garment Assessment Details garments have been denied. Would be covered if in care facility. Patient refuses. Caregiver adequately applying compression bandaging but applies old Farrow wraps on top. PT-OP-R Modalities Start: 06/27/21 16:44 Freq: Status: Active Protocol: Document 11/26/21 16:15 [facility] (Rec: 11/26/21 16:28 [facility] [id number]) Compression Pump Treatment Treatment Location Left Leg Inflation Time (Seconds) 45 Deflation Time (Seconds) 15 Treatment Duration (minutes) 40 PT-OP-T Assessment and Plan Start: 06/27/21 16:44 Freq: Status: Active Protocol: Document 11/26/21 16:15 [facility] (Rec: 11/26/21 16:28 [facility] [id number]) Physical Therapy Assessment Goals Three Impairment weakness Impairment Max assist bed mobility, mod assist transfers, no ability to ambulate at this time. Skilled Nursing Goal (LTG) Patient will be independent with assistance of caregiver with HEP for purposes of facilitation of lymphatic flow and for full body strengthening to improve his lymphedema and overal functional independence LTG Duration goal achieved Two Impairment functional mobility Impairment Patient requires increased level of assistance for mobility: max assist bed, mod assist transfers and limited to transfers only instead of short distance ambulation Short Term Goal (STG) Patient will be able to ambulate 10' with mod assistance for purposes of ADL 's in the home STG Duration goal achieved Skilled Nursing Goal (LTG) Patient able to move in bed with mod assist, transfer sit to stand with min assist and ambulate 25 ft with min to mod assist of caregiver for short household distance household ambulation, assistance with edema reduction, and quality of life 10/24/21: goal progress 11/26/21: all achieved except patient refuses to walk further than a few steps LTG Duration 12/23/21 One Impairment lymphedema bilateral LE's left greater than right Skilled Nursing Goal (LTG) Decrease lymphedema to stable level (no increase or decrease greater than 1 cm over the course of 1 week), patient and caregiver to be independent with self-management of lymphedema to include sequential lymphedema exercises, MLD, skin care, and compression bandaging. Patient will have appropriate supplies for long- term management of compression needs, and obtain new compression garments with good fit. 10/24/21: patient and caregiver continue to struggle with having enough bandaging supplies for patient. Hasn't yet received new compression bandages that were ordered; PT left message to check on status. 11/26/21: discussed bandaging supply issue with Neda Schultz director of casework; she will look into for patient. Sister has bought some bandaging supplies as needed. Unable to get Farrow wraps covered by insurance. Patient refuses to go to care center at this time. No further PT needs as caregiver managing bandaging well at home. Other issues relate to funding and director of casework will check into and continue to encourage patient go to care facility. LTG Duration 12/23/21 Assessment Summary Assessment Patient has made progress with PT, his caregiver is independent in application of lymphedema bandages, there are no open wounds, and patient has lymphedema pump at home. He refuses to go to a care facility where he could get daily care (caregiver only comes 3 days per week) and get Farrow wraps covered. He will need to have new Farrow wraps approximately every 6 months the rest of his life. At this time there are no further PT needs able to be addressed, he is stable and progress plateaued.
== END 2021-12-02 14:20 ==
LOC: PHYS 14:30
PROVIDERS: PCP Family Medicine; Referring Provider Family Medicine; Visit Provider Family Medicine
DX: I89.0 Lymphedema, not elsewhere classified (principal); R53.1 Weakness; E66.9 Obesity, unspecified; I69.354 Hemiplegia and hemiparesis following cerebral infarction affecting left non-dominant side
CPT/HCPCS: 97110; 97140; 97163; 97530; 97535

== ENCOUNTER 2021-12-25 01:50 | Inpatient (IN) | payer MEDICARE, MEDICAID, SELFPAY ==
[2021-12-25] VITALS (17 sets, daily range): BP systolic 138–220; BP diastolic 62–128; PULSE 88–119; RESP 12–22; TEMP 36.2–37.3; O2SAT 92–100; BMI 51.4
--- NOTE | 2021-12-25 | DI.RAD.S_ITS ---
PROCEDURE: XR ANKLE RT 2V INDICATIONS: POST REDUCTION TECHNIQUE: 2 views of the ankle were acquired. COMPARISON: [facility], [place], XR ANKLE RT 2V, 12/25/2021, 2:09. FINDINGS: Bones: A fiberglass splint is present, which obscures fine bony detail. There has been interval mortise joint reduction with significantly improved alignment of the previously seen medial malleolar and distal fibular fractures. There continues to be proximally 5 mm inferolateral displacement of the medial malleolar fragment and associated mild lateral talar subluxation. Distal fibular fracture alignment has significantly improved with minimal residual angulation. Soft tissues: Diffuse soft tissue edema is seen throughout the ankle. IMPRESSION: Interval reduction of the mortise joint and distal tibial and fibular fractures with significantly improved alignment. Dictated by: Vaughn Gilliland M.D. on 12/25/2021 at 8:06 Approved by: Vaughn Gilliland M.D. on 12/25/2021 at 8:08
--- NOTE | 2021-12-25 02:09 | DI.RAD.S_ITS ---
PROCEDURE: XR ANKLE RT 2V INDICATIONS: fall, gross deformity TECHNIQUE: 2 views of the ankle were acquired. COMPARISON: None. FINDINGS: Bones: Mortise joint fracture dislocation is seen. An oblique fracture of the medial malleolus is seen that is displaced up to 4.7 cm laterally. The fragment appears to be impacted along the lateral aspect of the tibial metaphyseal component. The talar dome is displaced laterally along with the medial malleolar fracture fragment. No definite talar fracture is seen. Additionally, there is a comminuted fracture of the distal fibula with marked lateral angulation and mild posterior angulation. Mild talonavicular degenerative changes. Plantar and posterior calcaneal enthesophytes are present. Soft tissues: Soft tissue edema is seen throughout the lower leg. Mild skin irregularity at the lateral aspect of the distal lower leg may represent a skin wound. IMPRESSION: Comminuted and markedly displaced fractures of the distal tibia and fibula with lateral tibiotalar dislocation. There is no significant discrepancy when compared to the overnight preliminary report. Dictated by: Vaughn Gilliland M.D. on 12/25/2021 at 8:02 Approved by: Vaughn Gilliland M.D. on 12/25/2021 at 8:06
[2021-12-25] MEDS: OXYCODONE/ACETAMINOPHEN 5/325 TABLET 1 TAB PO (02:17)
--- NOTE | 2021-12-25 02:54 | ED_ITS ---
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 He landed on his left leg and has an ankle fracture/dislocation. He does not report recent fevers, palpitations, cough, chills. He does note he has had diarrhea which seems to be a chronic issue for him. Has his left lower extremity wrapped and states that his caregiver re -wraps the extremity every 3 days. Related Data Home Medications Medication Instructions Recorded Confirmed albuterol sulfate 90 mcg/actuation 1 puff INHALATION PRN PRN 01/20/19 01/20/19 aerosol inhaler carvedilol 25 mg tablet 25 mg PO BID 01/20/19 03/22/20 gabapentin 100 mg capsule 100 mg PO BID 01/20/19 01/20/19 lisinopril 10 mg tablet 10 mg PO DAILY 01/20/19 03/22/20 metformin 500 mg tablet 500 mg PO BID 01/20/19 03/22/20 trazodone 50 mg tablet 75 mg PO BEDTIME 01/20/19 03/22/20 triamcinolone acetonide 0.1 % 1 applic TOPICAL PRN PRN 01/20/19 01/20/19 topical ointment Allergies Allergy/AdvReac Type Severity Reaction Status Date / Time clindamycin AdvReac upset Verified 12/25/21 02:07 stomach Review of Systems Review of Systems Narrative: Remainder of complete review of systems is otherwise unremarkable except for that included in the HPI. Patient History Medical History Asthma Chronic acquired lymphedema HTN (hypertension) Hyperlipidemia Morbid obesity with body mass index (BMI) of 40.0 to 49.9 Obstructive sleep apnea (04/03/20) Family History Family/Other Obesity Hypertension Diabetes mellitus Heart disease Dementia Social History Smoking Status: Current every day smoker Smoking Status: Current every day smoker alcohol intake frequency: 0-2 drinks per day Substance Use Type: marijuana Exam Initial Vital Signs Initial Vital Signs: Vital Signs Temperature 98.5 F 12/25/21 01:59 Pulse Rate 101 H 12/25/21 01:59 Respiratory Rate 22 12/25/21 01:59 Blood Pressure 200/95 H 12/25/21 01:59 Pulse Oximetry 96 12/25/21 01:59 General: Morbidly obese, chronically ill-appearing gentleman with significant lymphedema HEENT: Moist mucous membranes, normal sclera with reactive pupils, Neck: supple Respiratory: Lungs are clear to auscultation, no wheezing no rales no rhonchi. Full and symmetrical air movement Cardiac: Tachycardia, Regular rate and rhythm no murmurs no bruits Abdomen: Obese, Soft, nontender, good bowel tones, no flank pain Skin and lower extremities: Significant lichenification over upper and lower extremities. Multiple dermal peduncules on the posterior aspect of his left le g. There is a linear area approximately 20 cm long of irritation that looks like his leg was perhaps stuck to his wheelchair seat. Erythematous but not overtly infected. Left lower extremity is unwrapped from his chronic dressings. The skin underneath looks similar to the remainder of his skin and apparently the wrapping is mostly to protect the leg because he is unable to move it. Significant lichenification and lymphedema without serous drainage or erythema. Right leg with significant lymphedema no evidence of infection grossly deformed right ankle with some ecchymosis to the medial aspect. He does have reasonable capillary refill to the right foot. Neurologic: Hemiparesis with the left arm left leg. He has some upper extremity elbow and hand/finger contractures Psych: Cooperative, appropriate insight and affect Procedures Orthopedic Joint Reduction Right ankle: Time of procedure: 05:03 Time Out Performed: Yes Side: right Joint Reduction Location: ankle (With reduction of distal fibular fracture and medial malleolar fracture) Analgesia: procedural sedation Post-reduction neuro exam: intact Post-reduction vascular: intact Post Reduction X-Ray Obtained: Yes Post Reduction X-Ray Results: reduced Splint Applied: Yes (Posterior short-leg cast with sugar-tong splinting) Patient Tolerated Procedure: Well Procedural Sedation Time of procedure: 05:04 Consent signed: No Time out performed: Yes Indication: fracture/dislocation reduction ASA Class: IV Mallampati Airway Classification: Class IV Time of Last PO Intake: 12:00 Preparation: bus driver/monitor applied, pulse oximeter, capnometry used, supplemental O2 applied, suction/airway equipment at bedside and IV secured Ketamine dose (mg): 200 Intraservice time/total sedation time (min): 16 ED Sedation Level: Moderate (Concious) Patient Tolerated Procedure: Well Complications: hypoventilation Interventions: Assist by BVM Course Orders Ordered: ED Orders 12/25/21 XR ankle RT 2V Stat 12/25/21 02:09 XR ankle RT 2V Stat 12/25/21 03:40 EKG-12 Lead Stat 12/25/21 04:30 Comprehensive Metabolic Panel Stat 12/25/21 05:04 Complete Blood Count AUTO DIFF Stat 12/25/21 05:45 COVID19 -Nasal swab/Pre-Proc Stat Acetaminophen (Acetaminophen 325 Mg Tablet) 650 mg PO Q6HR PRN PRN Reason: Pain, Mild (1-3) Albuterol (Albuterol 2.5 Mg/3 Ml Neb (Adult)) 2.5 mg INH RTQ4HR PRN PRN Reason: Shortness Of Breath Carvedilol (Carvedilol 12.5 Mg Tablet) 25 mg PO BID [facility] Dextrose (Dextrose 50 % In Water 25 Gm/50 Ml Syringe) 25 gm IV PRN PRN; Protocol PRN Reason: Hypoglycemia Enoxaparin Sodium (Enoxaparin 40 Mg/0.4 Ml Syringe) 40 mg SUBCUT DAILY [facility] Gabapentin (Gabapentin 100 Mg Capsule) 100 mg PO BID [facility] Insulin Human Lispro (Insulin Lispro 100 Unit/Ml 3ml Vial) 0 unit SUBCUT ACHS [facility]; Protocol Lisinopril (Lisinopril 10 Mg Tablet) 10 mg PO DAILY [facility] Metformin HCl (Metformin Hcl 500 Mg Tablet) 500 mg PO 0800,1700 [facility] Naloxone HCl (Naloxone 0.4 Mg/Ml Vial) 0.2 mg IV Q2MIN PRN PRN Reason: Opiate Reversal Nystatin (Nystatin Cream 30 Gm) 1 applic TOP TID CARMEN Nystatin (Nystatin Powder 15gm) 1 applic TOP TID PRN PRN Reason: Rash Ondansetron HCl (Ondansetron 4 Mg/2 Ml Inj) 4 mg IV Q8HR PRN PRN Reason: Nausea And Vomiting Oxycodone HCl (Oxycodone Ir 5 Mg Tablet) 10 mg PO Q4HR PRN PRN Reason: Pain, Moderate (4-6) Trazodone HCl (Trazodone 50 Mg Tablet) 50 mg PO BEDTIME [facility] Triamcinolone Acetonide (Triamcinolone 0.1% Cream) 1 applic TOP BID PRN PRN Reason: Rash Discontinued Medications Albuterol (Albuterol Hfa Mdi 60 Puff/8 Gm Inhaler) 2 puff INH RTQ4HR PRN PRN Reason: Shortness Of Breath Oxycodone HCl (Oxycodone Ir 5 Mg Tablet) 10 mg PO NOW ONE Stop: 12/25/21 03:33 Last Admin: 12/25/21 03:43 Dose: 10 mg Documented by: JACKELINE Oxycodone/Acetaminophen (Oxycodone/Acetaminophen 5/325 Tablet) 1 tab PO NOW ONE Stop: 12/25/21 02:10 Last Admin: 12/25/21 02:17 Dose: 1 tab Documented by: HARRIET Vital Signs Vital signs: Vital Signs - 8 hr 12/25/21 01:59 12/25/21 04:40 12/25/21 04:42 Temperature 98.5 F Pulse Rate 101 H 98 H 116 H Respiratory Rate 22 16 18 Blood Pressure 200/95 H 151/91 H Pulse Oximetry 96 97 12/25/21 04:50 12/25/21 04:55 12/25/21 05:00 Temperature Pulse Rate 96 H 115 H 119 H Respiratory Rate 13 16 14 Blood Pressure 171/98 H 220/128 H 190/93 H Pulse Oximetry 100 100 95 12/25/21 05:05 12/25/21 05:10 12/25/21 05:15 Temperature Pulse Rate 116 H 105 H 115 H Respiratory Rate 12 17 14 Blood Pressure 211/120 H 216/98 H 213/105 H Pulse Oximetry 96 93 94 12/25/21 05:20 Temperature Pulse Rate 118 H Respiratory Rate 15 Blood Pressure 208/99 H Pulse Oximetry 95 MDM - Extremity Injury (Lower) Lab Data Result diagrams: 12/25/21 05:04 12/25/21 04:30 Labs: Lab Results 12/25/21 12/25/21 12/25/21 Range/Units 04:30 05:04 05:04 WBC 17.3 H (4.5-11.0) X10^3/uL RBC 5.62 (4.5-5.9) X10^6/uL Hgb 13.0 L (13.5-17.5) g/dL Hct 40.0 L (41-53) % MCV 71.2 L (80-100) fL MCH 23.2 L (26-34) PG MCHC 32.5 (30-36) % RDW 17.7 H (11.6-14.8) % Plt Count 242 (150-400) X10^3/uL Neut % (Auto) 85.1 H (50-75) % Lymph % (Auto) 9.2 L (25-40) % [place] % (Auto) 4.3 (3-14) % Eos % (Auto) 0.6 L (2-4) % Baso % (Auto) 0.8 (0-2) % Neut # (Auto) 77489 H (2025-3899) /uL Lymph # (Auto) 1600 (1147-0332) /uL [place] # (Auto) 700 (0-900) /uL Eos # (Auto) 100 (0-450) /uL Baso # (Auto) 100 (0-100) /uL Sodium 133 L (137-145) mmol/L Potassium 4.3 (3.4-5.1) mmol/L Chloride 104 (98-107) mmol/L Carbon Dioxide 25 (22-32) mmol/L BUN 10 (9-20) mg/dL Creatinine 0.91 (0.66-1.25) mg/dL Estimated GFR > 60.0 (>60) mL/min BUN/Creatinine Ratio 11.0 (6-22) Glucose 164 H (70-100) mg/dL Hemoglobin A1c 7.0 H (4.0-6.0) % Calcium 8.1 L (8.4-10.2) mg/dL Total Bilirubin 0.7 (0.2-1.3) mg/dL AST 26 (17-59) IU/L ALT 25 (<50) IU/L Alkaline Phosphatase 131 H (38-126) U/L Total Protein 6.8 (6.3-8.2) g/dL Albumin 3.5 (3.5-5.0) g/dL Globulin 3.3 (1.7-4.1) g/dL Albumin/Globulin Ratio 1.1 (1.0-2.8) Imaging Data XR ankle: Radiologist's Impression: Comminuted displaced fracture of the distal fibula and fracture of the medial malleolus with dislocation at the ankle Postreduction films Significantly improved alignment distal fibula, ankle fracture relocated MDM Narrative Medical decision making narrative: 61-year-old gentleman with a right ankle trimalleolar fracture dislocation. He was minimally able to manage at home prior to the fracture and will not be able to be safely discharged home at this time. He states any time he has previously had significant injuries he has required intermediate stays. There is no evidence of overt infection. Significant lymphedema is certainly going to complicate his surgery options and overall recovery. 510am right distal fibular fracture and ankle dislocation have been reduced and relocated. He is in a posterior short-leg splint with sugar-tong for stabilization significant padding was used and care was taken to make sure the dressing was not tight. Tolerated the procedural sedation well. His hemiplegic left lower extremity has a dressing in place to protect the lower extremity while he is in his wheelchair. That dressing was removed, has the usual lymphedema but no weepage or infection underneath. A simple dressing with cotton wrap and Gurpreet wrap was reapplied to continue to provide skin support to that left hemiplegia leg. Fracture and findings reviewed with Dr. Rogers, orthopedist on-call. Given his significant medical comorbidities he may not be a surgical candidate at all. Dr. Rogers will consult. Patient will need to be admitted to the hospitalist service for continued care and will need social work involvement. Discharge Plan Departure Patient Disposition: Admitted As Inpatient Clinical Impression: Chronic acquired lymphedema, HTN (hypertension), Obstructive sleep apnea, Morbid obesity with body mass index (BMI) of 40.0 to 49.9 Ankle dislocation Qualifiers: Encounter type: initial encounter Laterality: right Qualified Code(s): S93.04XA - Dislocation of right ankle joint, initial encounter Ankle fracture Qualifiers: Encounter type: initial encounter Fracture type: closed Laterality: right Qualified Code(s): S82.891A - Other fracture of right lower leg, initial encounter for closed fracture Fracture of distal end of fibula Qualifiers: Encounter type: initial encounter Fracture type: closed Fracture morphology: unspecified fracture morphology Laterality: right Qualified Code(s): S82.831A - Other fracture of upper and lower end of right fibula, initial encounter for closed fracture Admit Date/Time: 12/25/21 05:37 Admit Provider: Sloane Jackson
[2021-12-25] MEDS: OXYCODONE IR 5 MG TABLET 10 MG PO ×3 (03:43→22:10)
[2021-12-25] MEDS: KETAMINE 50 MG/5 ML *SYRINGE 200 MG IV (04:39)
[2021-12-25 04:48] LABS: Alanine Aminotransferase 25 IU/L (<50); Albumin 3.5 g/dL (3.5-5.0); Albumin Globulin Ratio 1.1 (1.0-2.8); Alkaline Phosphatase 131 U/L (38-126); Aspartate Aminotransferase 26 IU/L (17-59); Bilirubin Total 0.7 mg/dL (0.2-1.3); Blood Urea Nitrogen 10 mg/dL (9-20); Calcium 8.1 mg/dL (8.4-10.2); Carbon Dioxide 25 mmol/L (22-32); Chloride 104 mmol/L (98-107); Estimated Glomerular Filt Rate > 60.0 mL/min (>60); Globulin 3.3 g/dL (1.7-4.1); Glucose 164 mg/dL (70-100); HEMOLYSIS 39 (0-50); Potassium 4.3 mmol/L (3.4-5.1); Sodium 133 mmol/L (137-145); Total Protein 6.8 g/dL (6.3-8.2)
--- NOTE | 2021-12-25 05:07 | PC.NURSE ---
IV started per Dr Gamez with ultrasound
[2021-12-25 05:14] LABS: Add Manual Diff / Slide Review NO; Basophils Absolute Auto 100 /uL (0-100); Basophils Percent Auto 0.8 % (0-2); Eosinophils Absolute Auto 100 /uL (0-450); Eosinophils Percent Auto 0.6 % (2-4); Lymphocytes Absolute Auto 1600 /uL (1100-4500); Lymphocytes Percent Auto 9.2 % (25-40); Mean Corpuscular HGB Conc 32.5 % (30-36); Mean Corpuscular Hemoglobin 23.2 PG (26-34); Mean Corpuscular Volume 71.2 fL (80-100); Monocytes Absolute Auto 700 /uL (0-900); Monocytes Percent Auto 4.3 % (3-14); Neutrophils Absolute Auto 14700 /uL (1500-7000); Neutrophils Percent Auto 85.1 % (50-75); Platelet Count 242 X10^3/uL (150-400); Red Blood Cell Count 5.62 X10^6/uL (4.5-5.9); Red Cell Distribution Width 17.7 % (11.6-14.8); White Blood Cell Count 17.3 X10^3/uL (4.5-11.0)
[2021-12-25 06:04] LABS: COVID19 -Nasal RAPID Negative (Negative)
--- NOTE | 2021-12-25 06:33 | P.HP_ITS ---
History of Present Illness History of Present Illness Date Patient Seen: 12/25/21 Time Patient Seen: 06:33 Chief complaint: ankle injury Narrative: The patient is a 61-year-old male with a history of morbid obesity, elephantiasis, type 2 diabetes, hypertension, hyperlipidemia, reactive airway disease, obstructive sleep apnea, who had a stroke in 1998 resulting in left hemiparesis. He has left-sided contractures and no use of the left arm. Patient reports he can pivot, but is mostly wheelchair bound. He was transferring from his recliner to the wheelchair when he lost his balance and fell. He landed on his right leg and suffered a right ankle fracture/di slocation. The patient also has chronic lymphedema and has his left lower leg wrapped which is changed every 3 days. He reports he is chronically short of breath, he admits to smoking 18 g of marijuana daily, he does not drink any alcohol or smoke any other substances. He has some chronic diarrhea, minimal diarrhea yesterday. He has no fever chills. He has bilateral cataracts and blurring of his vision. He denies any chest pain, no nausea, no vomiting. No dysuria hematuria or pyuria. His right ankle pain has improved since admission to the hospital. The patient lives at home independently. He is unable to care for himself and will need placement given his recent ankle fracture/dislocation. Patient History Medical History Asthma Chronic acquired lymphedema HTN (hypertension) Hyperlipidemia Morbid obesity with body mass index (BMI) of 40.0 to 49.9 Obstructive sleep apnea (04/03/20) Family & Social History Family History Family/Other Obesity Hypertension Diabetes mellitus Heart disease Dementia Safety & Behavioral: Feels Safe in Current Yes Environment Been Physically Hurt or No Threatened By a Person Tobacco & Substance use: Smoking Status Current every day smoker alcohol intake frequency 0-2 drinks per day Substance Use Type marijuana Meds Home Medications and Allergies Home Medications Medication Instructions Recorded Confirmed Type albuterol sulfate 90 mcg/actuation 1 puff INHALATION PRN PRN 01/20/19 01/20/19 History aerosol inhaler carvedilol 25 mg tablet 25 mg PO BID 01/20/19 03/22/20 History gabapentin 100 mg capsule 100 mg PO BID 01/20/19 01/20/19 History lisinopril 10 mg tablet 10 mg PO DAILY 01/20/19 03/22/20 History metformin 500 mg tablet 500 mg PO BID 01/20/19 03/22/20 History trazodone 50 mg tablet 75 mg PO BEDTIME 01/20/19 03/22/20 History triamcinolone acetonide 0.1 % 1 applic TOPICAL PRN PRN 01/20/19 01/20/19 History topical ointment Allergies Allergy/AdvReac Type Severity Reaction Status Date / Time clindamycin AdvReac upset Verified 12/25/21 02:07 stomach Review of Systems Review of Systems Narrative: Ten point review of systems is reviewed and negative as above Exam Vital Signs (past 8 hours): - 12/25/21 01:59 12/25/21 04:40 12/25/21 04:42 Temperature 98.5 F Pulse Rate 101 H 98 H 116 H Respiratory Rate 22 16 18 Blood Pressure 200/95 H 151/91 H Pulse Oximetry 96 97 12/25/21 04:50 12/25/21 04:55 12/25/21 05:00 Temperature Pulse Rate 96 H 115 H 119 H Respiratory Rate 13 16 14 Blood Pressure 171/98 H 220/128 H 190/93 H Pulse Oximetry 100 100 95 12/25/21 05:05 12/25/21 05:10 12/25/21 05:15 Temperature Pulse Rate 116 H 105 H 115 H Respiratory Rate 12 17 14 Blood Pressure 211/120 H 216/98 H 213/105 H Pulse Oximetry 96 93 94 12/25/21 05:20 12/25/21 05:56 Temperature Pulse Rate 118 H 104 H Respiratory Rate 15 20 Blood Pressure 208/99 H 177/81 H Pulse Oximetry 95 Oxygen Delivery Method Room Air Oxygen Flow Rate 90 Narrative Exam Narrative: Pleasant, unkempt male lying in bed in no obvious distress Const Other: Patient is morbidly obese, appears to have difficulty with self-care given i nability to move, and morbid obesity HENMT Other: Normocephalic atraumatic, extraocular muscles are intact oropharynx reveals poor dentition but moist mucous membranes neck is supple without adenopathy Resp Other: Lungs: Decreased breath sounds with scattered end-expiratory wheezing bilaterally Cardio Other: Cardiac exam: Regular rate and rhythm normal S1-S2 with a 2/6 systolic ejection murmur GI Other: Abdomen: Obese soft and nontender Other: Normal fail as and scrotum no lesions identified Skin Other: Multiple areas of intertriginous Lanie, there is erythema and moisture under the breasts bilaterally, in the bilateral inguinal folds, and in the left axilla Patient has elephantiasis, with a deformity of the left toe, blistering of the inner thighs of the lower extremity, significant 4+ edema, the right lower extremity is in a splint left lower extremity is wrapped in an Gurpreet bandage The buttock reveals areas of erythema, with a split area of skin on the left buttock, this appears to be a stage II or 3 sacral ulcer, there is a bluish discoloration and generalized erythema along both buttocks Neuro Other: Cranial nerves 2-12 appear to be intact, is flaccid hemiparesis of the left upper extremity left lower extremity is paralyzed as well Extrem Other: Please see above Psych Other: Patient is awake and alert as normal thought content no delusions or hallucination Objective Labs Result Diagrams: 12/25/21 05:04 12/25/21 04:30 Labs: Laboratory Results - last 24 hr 12/25/21 12/25/21 12/25/21 04:30 05:04 05:45 WBC 17.3 H RBC 5.62 Hgb 13.0 L Hct 40.0 L MCV 71.2 L MCH 23.2 L MCHC 32.5 RDW 17.7 H Plt Count 242 Neut % (Auto) 85.1 H Lymph % (Auto) 9.[address] [place] % (Auto) 4.3 Eos % (Auto) 0.6 L Baso % (Auto) 0.8 Neut # (Auto) 79077 H Lymph # (Auto) 1600 [place] # (Auto) 700 Eos # (Auto) 100 Baso # (Auto) 100 Sodium 133 L Potassium 4.3 Chloride 104 Carbon Dioxide 25 BUN 10 Creatinine 0.91 Estimated GFR > 60.0 BUN/Creatinine Ratio 11.0 Glucose 164 H Calcium 8.1 L Total Bilirubin 0.7 AST 26 ALT 25 Alkaline Phosphatase 131 H Total Protein 6.8 Albumin 3.5 Globulin 3.3 Albumin/Globulin Ratio 1.1 SARS-CoV-2 (PCR) Negative Assessment & Plan Assessment & Plan narrative: 61-year-old male admitted to the hospital with morbid obesity, type 2 diabetes, hypertension, asthma, obstructive sleep apnea, history of stroke, who presents with a right ankle fracture/dislocation * Patient has suffered a distal fibular fracture, and medial malleolar fracture which has been reduced and splinted * Given his significant morbid obesity he will be unable to transfer given the fracture right ankle * Patient's pain control is good will continue oxycodone 10 mg every 4 hours * Will obtain PT OT consultation * Anticipate the patient will need group home at discharge Type 2 diabetes * Will continue metformin * Will add a sliding scale of insulin * Will check hemoglobin A1c * Anticipate patient will be discharged shortly as soon as placement has been obtained Morbid obesity * This is clearly had a significant impact on his morbidity, as his obesity likely is the cause of the right ankle fracture which is resulting in his inability to move and pivot at this point. * Coupled with his ongoing asthma and sleep apnea this increases his risk for morbidity mortality significantly. * Will ask for dietary consult during his hospital stay Hypertension * Continue Coreg * Continue lisinopril Obstructive sleep apnea * It does not appear the patient is using CPAP but will confirm * Will place him on continuous oximetry here * Resume CPAP if he has settings and or can have his CPAP machine brought in here Sacral decubitus ulcer * Given his significant obesity, and inability to move this is problematic as he is at high risk for further skin breakdown * Will apply a barrier cream * Waffle cushion * Recommend wound care * Recommend bariatric bed/pressure offloading bed if the patient will not be discharge soon Elephantiasis * Chronic continue his usual wound dressing Intertriginous Lanie * Will start nystatin powder and cream to the affected areas Asthma * Continue the albuterol inhaler I have utilized all available methods to review update confirm the patient's current medications Patient reports he is a full code will note that his record accordingly. He states that his sister Chiquita is his surrogate decision maker and will note that his record accordingly Patient is being admitted under observation Patient will be placed on Lovenox for DVT prophylaxis Time Spent With Patient Critical Care time: I spent a total of [] minutes of critical care time on this patient's care today; this time is exclusive of procedural time.
--- NOTE | 2021-12-25 08:19 | PC.NURSE ---
Addendum entered by Josie Arndt R.N. 12/25/21 18:26: Patient talks in an almost child like voice, he is frequently argumentative with staff and care. He does let staff do his care, his lisinopril and metformin have been d/cd as he states that he does not take those anymore. Addendum entered by Josie Arndt R.N. 12/25/21 15:39: Patient states that he is needy, on his light a lot for little things. Given zofran for nausea and protonix. Patient has a mid line to her r.upper extremity, dressing changed as it was not secure. Taped up and flushing well Addendum entered by Josie Arndt R.N. 12/25/21 11:39: Patient complained of nausea, he has no iv access so unable to give meds at this time. Will talk to the doctor when patients ml gets put in. Offered diet gingerale but patient did not want this. Addendum entered by Josie Arndt R.N. 12/25/21 11:06: Patient needy, asking for a new call light and a new bed, everything is working fine. Double checked with patient. Given 10mg of po oxycodone and helpful. Alberto Rn is putting a new iv in patient now. Original Note: Assess- Patient is alert and oriented x3, he is obese and states that he is an uncontrolled diabetic and does not watch what he eats. He has multiple skin issues that can be seen under physical skin assessment. Patient has a splint to his r.ankle from a fall at home, they did a closed reduction in the ER. He also has some growths on his toes. L. leg is wrapped with coban, patient has lymph edema. Hx of CVA in the past with l.sided weakness in his arm and legs. Patient also has a skin tear to his l.arm pit and ulcer to his bottom. BS 169, patient tolerating his breakfast now.
[2021-12-25] MEDS: GABAPENTIN 100 MG CAPSULE PO ×2 (08:41→21:04)
[2021-12-25] MEDS: carvediloL 12.5 MG TABLET 25 MG PO ×2 (08:41→21:04)
[2021-12-25] MEDS: METFORMIN HCL 500 MG TABLET PO (08:41)
[2021-12-25] MEDS: INSULIN LISPRO 100 UNIT/ML 3ML VIAL SUBCUT ×3 (08:42→16:34)
[2021-12-25] MEDS: ENOXAPARIN 40 MG/0.4 ML SYRINGE SUBCUT ×2 (08:43→21:04)
--- NOTE | 2021-12-25 08:50 | CM.DANOTE ---
Addendum entered by Vanna Pugh R.N. 12/25/21 15:32: Will ask Katie to fax referral over to [facility], [facility], and [facility], for back up. Addendum entered by Vanna Pugh R.N. 12/25/21 15:19: Marily at [facility] stated that she can only skill him for rehab, not Medicaid. And she also needs to see progress with wound and P.T. notes. According to P.T, there is limitations on what he can do secondary to having one side that's weak from a previous CVA, and the other, non weight bearing. The only way to get him to [facility] if he shows some progress, so he will need to continue to work with rehab. Addendum entered by Vanna Pugh R.N. 12/25/21 12:51: Sonia called back and stated that patient's PATRICA case manage is Maritza Vieira. Her phone number is: [phone]. Called this number, and there was a voice mail of a child support case officer named Sloane at this number. Left a message for her to call this [place] Historic Sites Supervisor, for it would be beneficial to find out about patient's current hours of caregiving in the home that he is getting presently, due to multiple skin issues. Addendum entered by Vanna Pugh R.N. 12/25/21 12:41: Called [facility] in [facility] [place]. Their number is: [phone]. Spoke to Cindy and asked her if she knows who patient's PATRICA Security Architect is. She indicated, their system is down, but can call back as soon as she finds out. Attempting to get information as far as hours that patient is currently getting for care needs. Did go ahead and complete PASSR for group home. As mentioned in prior note, [facility] will need to review to see if he can make inpatient status. If he does not, finding additional placement will be a barrier due to his weight and skin issues. Addendum entered by Vanna Pugh R.N. 12/25/21 11:19: Spoke to Marily at [facility] who confirmed that she can take patient. They do not do COVID waivers, however. Asked Dora in [facility] if she can review again to see if there is something to make him inpatient. She will review. Gave Marily information regarding his weight and social. She will like wound information as well. Original Note: DCP: Case received, EMR reviewed and met with patient. Introduced self and role. Was able to obtain information regarding patient' s baseline activity level at home, as well as his current living situation. DCP assessment completed with information currently available. Patient is a 61 year old male who admitted early this morning to the care of the hospitalist team. PCP: Dr. Begum. Payer: confirmed: Medicare/Medicaid. Patient came to the hospital via ambulance secondary to having a fall out of his wheelchair during a transfer to the commode. 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 Patient apparently landed on his left leg, and ended up with an ankle fracture/dislocation. According to notes, his caregiver wraps his lower extremity every 3 days, he has chronic lymphedema. According to notes, patient lives independently and is unable to care for himself at this time. Will likely need rehab. Met with patient in his room. He is alert and oriented, pleasant. Confirmed that he does have a PATRICA caregiver, is not there all of the time. He assists with showers, meal prep, takes patient to appointments. He is wheel chair bound. Mentioned group home, stated, he was recently at [facility], and is willing to go back if needed. Let him know that this space planner will start working on skilled rehab referrals. Patient will be working with the therapy team while he's here. P: DCP to work on placement. Will follow up today with Marily at [facility]. Vanna Pugh RN/Security Architect Discharge Planning/Care Management Discharge Assessment Start: 12/25/21 08:45 Freq: Status: Active Protocol: Document 12/25/21 08:45 (Rec: 12/25/21 08:50 [id number]) Discharge Planning Assessment Advance Directives? No History Provided By Patient,Medical Record Prior Living Arrangements Apartment/Condo Household Members none Type of transporation used prior to Relies on Others admit Independent with ADL's Yes Is patient alert and oriented? Yes Needs Assistance With Bathing,Meal Prep,Home Chores / Shopping Caregiver for Another No DME Already Rented / Owned Wheelchair,FWW / Walker Patient/Family Preference Correction Facility Comment Will send referral to [facility] Barriers to Discharge Yes Comment Weight and multiple skin issues Discharge Plan Correction Facility Transportation Arrangement Facility Referrals Initiated Correction Additional Comment Will send first referral to [facility] Whiteboard Updated in Patient Room with Yes name and ext. # of Decating Machine Operator Review Status In Process Next Review Type Continued Stay Review
--- NOTE | 2021-12-25 09:00 | CM.DPNOTE ---
Emailed snf referral to [facility] per Zoe. Katie Bennett CM Assist.
--- NOTE | 2021-12-25 11:14 | OT.IPNOTE ---
Per nursing pt having IV placed and not available to see at this time. Per hospitalist to touch base with ortho regarding formal weight bearing status for the pt. However both therapist and hospitalist agree will be most likely be NWB for RLE.
--- NOTE | 2021-12-25 12:14 | OT.IPNOTE ---
Attempted OT eval, Pt not wanting to get up, even get to the edge of the bed today and promised to try tomorrow. Able to talk to pt able prior level of care and OT needs. No charge.
--- NOTE | 2021-12-25 13:10 | PT-IP ANOTE ---
checked with nurse this morning and stated that pt is having a midline IV put on. will check again in the afternoon.
--- NOTE | 2021-12-25 13:15 | PM.CN ---
History of Present Illness Consult details Date Patient Seen: 12/25/21 Time Patient Seen: 12:30 Chief complaint: ankle injury Requesting provider: Sloane Jackson Narrative: Mr. Barton is a 61 yo M with multiple medical comorbidites and history of stroke and left hemiparesis admitted for right ankle fx and dislocation. His fracture was closed and he was reduced in the ED and placed into a splint. He was admitted due to inability to mobilize since the fracture. Orthopedic service was consulted for additional treatment recommendations. Meds Home Medications and Allergies Home Medications Medication Instructions Recorded Confirmed Type albuterol sulfate 90 mcg/actuation 1 puff INHALATION PRN PRN 01/20/19 01/20/19 History aerosol inhaler carvedilol 25 mg tablet 25 mg PO BID 01/20/19 03/22/20 History gabapentin 100 mg capsule 100 mg PO BID 01/20/19 01/20/19 History lisinopril 10 mg tablet 10 mg PO DAILY 01/20/19 03/22/20 History metformin 500 mg tablet 500 mg PO BID 01/20/19 03/22/20 History trazodone 50 mg tablet 75 mg PO BEDTIME 01/20/19 03/22/20 History triamcinolone acetonide 0.1 % 1 applic TOPICAL PRN PRN 01/20/19 01/20/19 History topical ointment Allergies Allergy/AdvReac Type Severity Reaction Status Date / Time clindamycin AdvReac upset Verified 12/25/21 02:07 stomach Review of Systems Review of Systems ROS: Yes All systems reviewed with the patient and are negative except as otherwise documented Exam Vital Signs (past 8 hours): - 12/25/21 05:20 12/25/21 05:56 12/25/21 06:53 Temperature 97.9 F Pulse Rate 118 H 104 H 105 H Respiratory Rate 15 20 16 Blood Pressure 208/99 H 177/81 H 182/96 H Pulse Oximetry 95 94 12/25/21 08:00 12/25/21 08:24 12/25/21 12:00 Temperature 98.1 F 99.2 F Pulse Rate 101 H 102 H Respiratory Rate 18 16 Blood Pressure 149/83 H 163/109 H Pulse Oximetry 94 95 95 Oxygen Delivery Method Room Air Oxygen Flow Rate 0 Neuro Other: left sided hemiparesis, left arm with chronic contracture, left leg with motor/sensory deficit which is also chronic. right LE with intact sensibility Extrem Other: RLE in posterior splint, RLE with intact skin, chronic edema, capillary refill less than 2 seconds on toes. Objective Labs Result Diagrams: 12/25/21 05:04 12/25/21 04:30 Labs: Laboratory Results - last 24 hr 12/25/21 12/25/21 12/25/21 04:30 05:04 05:04 WBC 17.3 H RBC 5.62 Hgb 13.0 L Hct 40.0 L MCV 71.2 L MCH 23.2 L MCHC 32.5 RDW 17.7 H Plt Count 242 Neut % (Auto) 85.1 H Lymph % (Auto) 9.2 L [place] % (Auto) 4.3 Eos % (Auto) 0.6 L Baso % (Auto) 0.8 Neut # (Auto) 50918 H Lymph # (Auto) 1600 [place] # (Auto) 700 Eos # (Auto) 100 Baso # (Auto) 100 Sodium 133 L Potassium 4.3 Chloride 104 Carbon Dioxide 25 BUN 10 Creatinine 0.91 Estimated GFR > 60.0 BUN/Creatinine Ratio 11.0 Glucose 164 H Hemoglobin A1c 7.0 H Calcium 8.1 L Total Bilirubin 0.7 AST 26 ALT 25 Alkaline Phosphatase 131 H Total Protein 6.8 Albumin 3.5 Globulin 3.3 Albumin/Globulin Ratio 1.1 SARS-CoV-2 (PCR) 12/25/21 05:45 WBC RBC Hgb Hct MCV MCH MCHC RDW Plt Count Neut % (Auto) Lymph % (Auto) [place] % (Auto) Eos % (Auto) Baso % (Auto) Neut # (Auto) Lymph # (Auto) [place] # (Auto) Eos # (Auto) Baso # (Auto) Sodium Potassium Chloride Carbon Dioxide BUN Creatinine Estimated GFR BUN/Creatinine Ratio Glucose Hemoglobin A1c Calcium Total Bilirubin AST ALT Alkaline Phosphatase Total Protein Albumin Globulin Albumin/Globulin Ratio SARS-CoV-2 (PCR) Negative [facility] Medical History Asthma Chronic acquired lymphedema HTN (hypertension) Hyperlipidemia Morbid obesity with body mass index (BMI) of 40.0 to 49.9 Obstructive sleep apnea (04/03/20) Family History Family/Other Obesity Hypertension Diabetes mellitus Heart disease Dementia Social History household members: none Tobacco & Substance Use Smoking Status: Never smoker Assessment & Plan Assessment & Plan narrative: Patient with multiple co-morbidities with closed right ankle fx/displcation now reduced and stabilized in splint. NWB to RLE and ice/elevate to minimize swelling. He is a poor surgical candidate with high risk of intraoperative and post-operative complications. Since he is transfer only and predominantly wheelchair bound, he may be stabilized in the future in a CAM walker to allow transfer. In the mean time, I recommend keeping him in the splint to stabilize and allow soft tissue inflammation to calm down. He may be discharge to a rehab facility and f/u with our foot and ankle specialist in 2 weeks. Time Spent With Patient Critical Care time: I spent a total of [] minutes of critical care time on this patient's care today; this time is exclusive of procedural time.
--- NOTE | 2021-12-25 13:38 | PT.IIE ---
Current Diagnoses Lymphedema, not elsewhere classified (12/25/21) Medical History (Last Reviewed 12/25/21 @ 13:18 by Anabelle Baez MD) Asthma Chronic acquired lymphedema HTN (hypertension) Hyperlipidemia Morbid obesity with body mass index (BMI) of 40.0 to 49.9 Obstructive sleep apnea (04/03/20) Physical Therapy Inpatient Evaluation/Re-Eval M1 PT/OT-IP Prior Functional Status Start: 12/25/21 17:05 Freq: NEEDED Status: Active Protocol: Document 12/25/21 13:30 AB (Rec: 12/25/21 17:32 AB [id number]) Medical Review Prior Functional Status Medical History Reviewed Yes Communication able to make needs known Mobility and Gait pt stated that he is modified independent with transfers using his quad cane and able to complete a stand pivot but mainly uses his RLE for support to pivot transfers; pt usually stays on his lift chair and sleeps on his lift chair and is w/c bound using his electric w/c for mobility inside and outside the house. pt is non ambulatory Social History Household Members none Living Arrangements Apartment/Condo Number of Floors (Floors) One Floor Number of Stairs To Enter/Railing? no steps to enter; stated that he lives in a handicapped accessible apartment Home Environment High Toilet Home Equipment Quad Cane,Power Wheelchair/ Scooter,Lift Recliner,Grab Bars Near Toilet Additional Social History Comment has a caregiver that comes in 3x/wk for ~ 4 hours to assist with house chores and groceries. pt stated that he does not take a shower and just sponge bathes pt sleeps on his lift recliner M2 PT-IP Current Condition Start: 12/25/21 17:05 Freq: NEEDED Status: Active Protocol: Document 12/25/21 13:30 AB (Rec: 12/25/21 17:32 AB [id number]) Physical Therapy Current Condition Current Condition Evaluation Date 12/25/21 Treatment Diagnosis R ankle fx; generalized weakness Onset Date 12/25/21 M3 PT-IP Subjective Start: 12/25/21 17:05 Freq: NEEDED Status: Active Protocol: Document 12/25/21 13:30 AB (Rec: 12/25/21 17:32 AB [id number]) Subjective Physical Therapy Visit Type Type Initial Evaluation Visit Start Time 13:30 Visit Stop Time 14:18 Total Visit Minutes 48 Number of MOISTURE METER READER Visits 0 Physical Therapy Visit Comments Patient Comments agreeable to do PT Therapy Pain Assessment Pain When Pain Assessed At Rest Pain Present Pain Present Pain Reported Location Right Ankle Intensity 4 Scale Used Numeric (0 - 10) Pain Management Techniques Distraction,Modification of Treatment,Re-positioning, Timing of Activity with Medications M4 PT-IP Mobility and Gait Start: 12/25/21 17:05 Freq: NEEDED Status: Active Protocol: Document 12/25/21 13:30 AB (Rec: 12/25/21 17:32 AB [id number]) PT-Bed Mobility Assessment Supine to Sit Supine to Sit Total Assistance,2 Person Assistance,Head of Bed Elevated,Bedrails Sit to Supine Sit to Supine Total Assistance,2 Person Assistance Scooting Scooting to Edge of Bed Dependent Scooting Up and Down in Bed Dependent PT-Transfer Assessment Comments Mobility Comments pt completed supine to sit total A x 2 and max cues. sat on EOB max A x 1-2 and max cues. assisted back to bed total A x 3 and max cues. total A x 4 with positioning in bed. PT-Balance Assessment Sitting Balance and Reactions Static Sitting Balance Ability Poor Dynamic Sitting Balance Ability Poor M5 PT-IP Objective Assessments Start: 12/25/21 17:05 Freq: NEEDED Status: Active Protocol: Document 12/25/21 13:30 AB (Rec: 12/25/21 17:32 AB [id number]) Orientation Orientation/Cognition Level of Alertness Alert Orientation Name Safety Awareness Decreased Safety Awareness Gross Range of Motion Lower Extremity ROM Assessment Bilaterally Impaired Impairments limited due to BLE lymphedema Strength Lower Extremity Strength Assessment Bilaterally Impaired Comments Strength Comments LLE: knee flexion: 2-/5 but unable to move otherwise: RLE: 3-/5 M6 PT-IP Treatment Start: 12/25/21 17:05 Freq: NEEDED Status: Active Protocol: Document 12/25/21 13:30 AB (Rec: 12/25/21 17:32 AB [id number]) Physical Therapy Treatment Education Education Provided Safety M7 PT-IP Assessment and Plan Start: 12/25/21 17:05 Freq: NEEDED Status: Active Protocol: Document 12/25/21 13:30 AB (Rec: 12/25/21 17:32 AB [id number]) PT Summary Assessment and Plan Potential Rehabilitation Potential Poor Status of Condition at Evaluation Evolving Summary Impairments Pain,ROM,Strength,Balance, Coordination,Sensation,Tone, Cognition,Bed Mobility, Transfers,Gait,Activity Tolerance Assessment Summary pt with h/o CVA with L sided weakness and unable to use LUE and LLE has minimal movement 2-/5 with knee flexion but unable to move LE otherwise. pt stated that he uses his UE to move his LE for positioning . Pt also has chronic BLE lymphedema limiting mobility. pt sleeps on his lift recliner and transfers to his power w/ c with lift chair elevated and uses quad cane to pivot transfer. pt uses the grab bar in the toilet to assist him with pivot toilet transfers. pt stated that he is able to do his ADLs using adaptive equipement. pt currently is NWB on RLE due to ankle fx. pt is limited with mobility at baseline and currently will be more limited due to R ankle fx with NWB restriction. pt will require a mechanical lift for transfers. Realistically, there is not much PT will be able to do at this time due to pt's medical limitations( CVA with L hemiparesis, BLE lymphedema, morbid obesity with BMI of 51.4 and R ankle fx with NWB wegiht bearing status) but may require PT when pt is is allowed to put weight on RLE to improve mobility. pt will require LTC placement due to need for 24/ 7 assist availability. casework manager informed regarding pt' s currently level and limitations and need for d/c placement. Frequency of Treatment Frequency Of Treatment Discharge Weight Bearing Status Weight Bearing Status Non-Weight Bearing Allowed Weight Bearing Amount (enter % RLE NWB or #) (%) Recommendations To Nursing Amount of Assist Needed Mechanical Lift Discharge Recommendations PT Discharge Recommendations SNF Rehab Transportation Needs at Discharge Stretcher/Ambulance
--- NOTE | 2021-12-25 14:12 | OT.IP.EVAL ---
Current Diagnoses Lymphedema, not elsewhere classified (12/25/21) Past Medical History (Last Reviewed 12/25/21 @ 13:18 by Anabelle Baez MD) Asthma Chronic acquired lymphedema HTN (hypertension) Hyperlipidemia Morbid obesity with body mass index (BMI) of 40.0 to 49.9 Obstructive sleep apnea (04/03/20) Occupational Therapy Inpatient Evaluation/Re-Eval M2 OT-IP Current Condition Start: 12/25/21 15:17 Freq: Status: Active Protocol: Document 12/25/21 16:39 [facility] (Rec: 12/25/21 17:15 [facility] [id number]) Occupational Therapy Current Condition Current Condition Evaluation Date 12/25/21 Treatment Diagnosis Right ankle tri-malleolar fracture dislocation, decreased mobility Diagnosis Onset Date 12/25/21 Weight Bearing Status Weight Bearing Status Non-Weight Bearing Allowed Weight Bearing Amount (enter % NWB to RLE or #) (%) M3 OT- IP Subjective and Pain Start: 12/25/21 15:17 Freq: Status: Active Protocol: Document 12/25/21 16:39 [facility] (Rec: 12/25/21 17:15 [facility] [id number]) OT- Subjective Occupational Therapy Visit Type Type Initial Evaluation Visit Start Time 13:47 Visit Stop Time 14:12 Total Visit Minutes 35 Occupational Therapy Visit Comments Patient Comments Pt initially not wanting to get up and then agreed to get up in the PM with PT and therefore able to do cotxt for eval as pt needing extensive assist for all mobility needs. Patient/Caregiver Goals To get better and eventually make it home. OT Pain Assessment Pain When Pain Assessed During Mobility Pain Present Pain Present Pain Reported Location Right Ankle Description Aching M4 OT- IP ADL's Start: 12/25/21 15:17 Freq: Status: Active Protocol: Document 12/25/21 16:39 [facility] (Rec: 12/25/21 17:15 [facility] [id number]) OT [id number] Comments OT Self-Feeding Comments Not at meal time. OT ADL-Grooming Comments OT Grooming Comments Pt states did prior. OT ADL-Dressing Comments OT Dressing Comments Pt legs in bandages. OT ADL-Toileting Comments OT Toileting Comments Pt not having to go at this time. OT ADL-Bathing Bathing Type Bathing Type Sponge Bath Comments OT Bathing Comments Sponge bath more appropriate at this time. M5 OT- IP IADL's Start: 12/25/21 15:17 Freq: Status: Active Protocol: Document 12/25/21 16:39 [facility] (Rec: 12/25/21 17:15 [facility] [id number]) OT-Instrumental Activities of Daily Living Medication Management Medication Management Comments Pt states did his own prior. Food Operations Manager Food Operations Manager Caregiver Provides Assist M6 OT- IP Functional Cognition Start: 12/25/21 15:17 Freq: Status: Active Protocol: Document 12/25/21 16:39 [facility] (Rec: 12/25/21 17:15 [facility] [id number]) Cognitive Factors Limiting Selfcare Function Cognitive Ability Level of Alertness Alert Patient Orientation Name,Age,Birthday,Month,Date, Year,Day of Week,Place, Situation Attention Span Ability Capable of Focused Attention, Capable of Sustained Attention Ability to Follow Commands Able to Follow One Step Commands Safety Awareness No Deficits Noted Cognitive Comments Cognitive Assessment Comments Pt able to follow commands for bed mobility needs. Pt is realistic and aware that he will not be able to care for himself at this time however is motivated to get better so able to hopefully return back to his apartment. OT- Vision and Hearing OT- Vision Assessment Vision History Cataracts M7 OT- IP Mobility and Balance Start: 12/25/21 15:17 Freq: Status: Active Protocol: Document 12/25/21 16:39 [facility] (Rec: 12/25/21 17:15 [facility] [id number]) OT- Bed Mobility Assessment Rolling Level of Assistance Total Assistance,2 Person Assistance Supine to Sit Supine to Sit Assist Total Assistance,2 Person Assistance Sit to Supine Sit to Supine Assist Total Assistance,1 Person Assistance,2 Person Assistance OT-Transfer Assessment Comments Mobility Comments Use of flat slide sheet to help get pt's trunk upright and maxA to help get his legs to the edge of the bed. TotalA x2 to get to upright at the edge of the bed and needing MODA to MAX AX 1 to sit upright as he tends to lean backwards and to the right. OT- Gait Assessment Comments Gait Ability Comments Unable to do at this time due to NWB status of RLE and unable to use LLE due to prior CVA and prior only did stand pivot transfers. OT- Balance Assessment Sitting Balance and Reactions Static Sitting Balance Ability Poor Dynamic Sitting Balance Ability Poor Comments Other Balance Tests/Deviations/Treatment Poor sitting balance and : decreased awareness of midline . Pt needing cues to lean to the left. M8 OT- IP Objective Assessments Start: 12/25/21 15:17 Freq: Status: Active Protocol: Document 12/25/21 16:39 [facility] (Rec: 12/25/21 17:15 [facility] [id number]) OT Gross Range of Motion Upper Extremity Range of Motion Assessment Left Impaired ROM Impairments LUE internally rotated at shoulder, elbow, wrist and fingers. However able to passively open his left fingers and get his elbow to 30 degrees short of extension. OT Strength Comments Strength Comments Pt unable to move his LUE and has tone and contractures. OT-Muscle Tone Assessment Muscle Tone WNL No M9 OT- IP Assessment and Plan Start: 12/25/21 15:17 Freq: Status: Active Protocol: Document 12/25/21 16:39 [facility] (Rec: 12/25/21 17:15 [facility] [id number]) OT Summary Assessment and Plan Potential Rehabilitation Potential Poor Analytic Complexity at Evaluation High Summary OT Impairments Range of Motion,Strength, Balance,Tone,Functional Mobility,Self-Feeding,Grooming ,Dressing,Toileting,Bathing, Toilet Transfers,Shower Transfers,Activity Tolerance Progress Towards Goals Slow Progress due to Pain,Slow Progress due to Medical Issues,Slow Progress due to Activity Tolerance Assessment Summary Pt high complexity and main barriers are his NWB status from his fall for RLE, prior history of CVA with non functional LUE/LLE. Pt is now dependent of michael lift for mobility needs as can only use his right arm to assist for mobility needs at this time. Prior to his fall, pt just did stand pivot transfer with small based quad cane. Pt states prior able to dress himself while reclined in his power recliner. Pt would benefit from OT to work on his trunk control, practice on trying to get dressed in a supine position, and UB dressing needs to help maximize his independence for ADl needs. In addition by working on his trunk control to help prevent pt from declining in function while he is on NWB status for his RLE. Pt will benefit from skilled rehab to maximize his function and then may need LTC afterwards. Goals Self-Feeding Goal Standby Assistance Grooming Goal Standby Assistance Dressing Goal Moderate Assistance Toileting Goal Standby Assistance OT-Other Goals Pt to be able to improve his sitting balance from poor to fair to help improve his trunk control for ADl needs. Days to Meet Goals 60 Frequency of Treatment Frequency Of Treatment Once a Day Treatment Plan OT Treatment Plan ADL Training,Functional Mobility,Patient/Family Education,Discharge Planning Other Treatment Recommendations and Next Sitting balance after being Treatment Focus hoyered to recliner. Discharge Recommendations OT Discharge Recommendations SNF Rehab,[facility] Transportation Needs at Discharge Stretcher/Ambulance
[2021-12-25] MEDS: ONDANSETRON 4 MG/2 ML INJ IV (15:13)
[2021-12-25] MEDS: PANTOPRAZOLE DR 40 MG TABLET PO (15:32)
[2021-12-25] MEDS: CLOTRIMAZOLE/BETAMETHASONE CRM 15 GM 1 APPLIC TOP ×2 (16:31→21:04)
[2021-12-25] MEDS: TRAZODONE 50 MG TABLET PO (21:04)
[2021-12-25] MEDS: SODIUM CHLORIDE 0.9% FLUSH 10 ML IV (22:28)
[2021-12-26] VITALS (11 sets, daily range): BP systolic 135–178; BP diastolic 65–97; PULSE 80–96; RESP 16–22; TEMP 36.2–36.7; O2SAT 92–94
[2021-12-26] MEDS: SODIUM CHLORIDE 0.9% FLUSH 10 ML IV ×3 (05:34→21:30)
[2021-12-26 06:03] LABS: Add Manual Diff / Slide Review NO; Basophils Absolute Auto 100 /uL (0-100); Basophils Percent Auto 1.2 % (0-2); Eosinophils Absolute Auto 100 /uL (0-450); Eosinophils Percent Auto 0.9 % (2-4); Hemoglobin 10.3 g/dL (13.5-17.5); Lymphocytes Absolute Auto 1500 /uL (1100-4500); Lymphocytes Percent Auto 15.8 % (25-40); Mean Corpuscular HGB Conc 32.2 % (30-36); Mean Corpuscular Volume 71.6 fL (80-100); Monocytes Absolute Auto 500 /uL (0-900); Monocytes Percent Auto 5.4 % (3-14); Neutrophils Absolute Auto 7300 /uL (1500-7000); Neutrophils Percent Auto 76.7 % (50-75); Platelet Count 175 X10^3/uL (150-400); Red Blood Cell Count 4.47 X10^6/uL (4.5-5.9); Red Cell Distribution Width 17.5 % (11.6-14.8); White Blood Cell Count 9.6 X10^3/uL (4.5-11.0)
[2021-12-26] MEDS: OXYCODONE IR 5 MG TABLET 10 MG PO ×4 (06:32→21:24)
[2021-12-26] MEDS: INSULIN LISPRO 100 UNIT/ML 3ML VIAL SUBCUT ×3 (08:00→21:31)
--- NOTE | 2021-12-26 09:20 | P.PN_ITS ---
Subjective Subjective Interval history: The patient endorses having some nausea with oxycodone, but reports it controls his pain well. He states that he does not take lisinopril anymore at home, and is unsure why. He is asking about whether metformin will be continued inpatient. He denies any issues with PO intake, or with urinating/BM's. He is on-board with going to SNF, if PT/OT deems necessary. Exam Vital Signs (past 8 hours): - 12/26/21 02:56 12/26/21 04:22 12/26/21 09:06 Temperature 97.2 F L 97.4 F L Pulse Rate 80 90 Respiratory Rate 16 19 Blood Pressure 154/76 H 142/97 H Pulse Oximetry 94 92 Oxygen Delivery Method Room Air Oxygen Flow Rate 0 Const Other: Patient is laying in bed comfortably upon my entering the room, eating breakfast, and does not appear in acute distress HENMT Other: Bluish discoloration of lips noted Eyes Other: No scleral icterus appreciated Neck Other: Wide circumference neck noted Resp Other: Faint inspiratory scattered wheezes appreciated, no other adventitous breath sounds noted Cardio Other: RRR, S1 and S2 heart sounds normal, no extra heart sounds or murmurs appreciated GI Other: Soft, non-distended, non-tender, bowel sounds present Extrem Other: Bilateral lymphedema noted, with overlying skin changes consistent with chronic lymphedema, palpable dorsalis pedis pulses bilaterally Objective Labs Result Diagrams: 12/26/21 05:53 12/25/21 04:30 Labs: Laboratory Results - last 24 hr 12/26/21 05:53 WBC 9.6 RBC 4.47 L Hgb 10.3 L Hct 32.0 L MCV 71.6 L MCH 23.0 L MCHC 32.2 RDW 17.5 H Plt Count 175 Neut % (Auto) 76.7 H Lymph % (Auto) 15.8 L Hart % (Auto) 5.4 Eos % (Auto) 0.9 L Baso % (Auto) 1.2 Neut # (Auto) 7300 H Lymph # (Auto) 1500 Hart # (Auto) 500 Eos # (Auto) 100 Baso # (Auto) 100 PFSH Medical History Asthma Chronic acquired lymphedema HTN (hypertension) Hyperlipidemia Morbid obesity with body mass index (BMI) of 40.0 to 49.9 Obstructive sleep apnea (04/03/20) Family History Family/Other Obesity Hypertension Diabetes mellitus Heart disease Dementia Social History household members: none Smoking Status: Never smoker Assessment & Plan Assessment & Plan narrative: 61-year-old male admitted to the hospital with morbid obesity, type 2 DM, hypertension, asthma, obstructive sleep apnea, history of stroke, who presents with a right ankle fracture/dislocation after a mechanical fall. 1. Right ankle fracture, non-operative * Patient has suffered a distal fibular fracture, and medial malleolar fracture which has been reduced and splinted * Given his significant morbid obesity he will be unable to transfer given the fracture right ankle * PT/OT on-board and appreciate their recommendations 2. Type 2 DM * Insulin sliding scale inpatient 3. Morbid obesity, class 3 * This is clearly had a significant impact on his morbidity, as his obesity likely is the cause of the right ankle fracture which is resulting in his inability to move and pivot at this point 4. Hypertension * Continue home carvedilol 25 mg bid, patient reports he no longer takes lisinopril, and is unsure why 5. Obstructive sleep apnea * Patient denies use of CPAP at home 6. Sacral decubitus ulcer, stage III/IV * Given his significant obesity, and inability to move this is problematic as he is at high risk for further skin breakdown * Will cover with IV daptomycin for now, given likely surrounding cellulitis (started December 25, 2021) 7. Elephantiasis, secondary to lymphedema * Chronic, continue his usual wound dressing 8. Intertrigo, likely Lanie, affecting many folds * Will start topical clotrimazole/betamethasone * Will start PO Diflucan 150 mg once weekly for 4 weeks (started December 25, 2021) 9. Asthma, likely made worse by copious marijuana use * Continue the albuterol inhaler, as needed VTE prophylaxis: Lovenox 40 mg daily Code: Full code Proxy: Sister, Chiquita I have utilized all available immediate methods to review, update, or confirm the patient's current medications. Time Spent With Patient Critical Care time: I spent a total of [] minutes of critical care time on this patient's care today; this time is exclusive of procedural time. Quality MIPS - Admit I confirm the patient?s Advance Care Plan is present, Code status is documented, Surrogate decision maker is in patient?s record [If Yes, STOP here]: Yes
[2021-12-26] MEDS: carvediloL 12.5 MG TABLET 25 MG PO ×2 (09:25→21:30)
[2021-12-26] MEDS: ENOXAPARIN 40 MG/0.4 ML SYRINGE SUBCUT ×2 (09:25→21:28)
[2021-12-26] MEDS: GABAPENTIN 100 MG CAPSULE PO (09:27)
[2021-12-26] MEDS: INFLUENZA VACCINE QIV 0.5 ML SYRINGE IM (10:08)
--- NOTE | 2021-12-26 10:16 | CM.DPNOTE ---
Per Oze, faxed referral packet to [facility] & Norma and received conf. Also emailed [facility] & Adriana Doshi. Katie Bennett CM Assist.
[2021-12-26] MEDS: CLOTRIMAZOLE/BETAMETHASONE CRM 15 GM 1 APPLIC TOP ×2 (10:25→21:31)
--- NOTE | 2021-12-26 12:08 | OT.IP.TRT ---
Current Diagnoses Lymphedema, not elsewhere classified (12/25/21) Occupational Therapy Treatment Note M2 OT-IP Current Condition Start: 12/25/21 15:17 Freq: Status: Active Protocol: Document 12/25/21 16:39 [facility] (Rec: 12/25/21 17:15 [facility] [id number]) Occupational Therapy Current Condition Current Condition Evaluation Date 12/25/21 Treatment Diagnosis Right ankle trimalleolar fracture dislocation, decreased mobility Diagnosis Onset Date 12/25/21 Weight Bearing Status Weight Bearing Status Non-Weight Bearing Allowed Weight Bearing Amount (enter % NWB to RLE or #) (%) M3 OT- IP Subjective and Pain Start: 12/25/21 15:17 Freq: Status: Active Protocol: Document 12/26/21 11:42 [facility] (Rec: 12/26/21 12:56 [facility] [id number]) OT- Subjective Occupational Therapy Visit Type Type Treatment Note Visit Start Time 11:42 Visit Stop Time 12:08 Total Visit Minutes 26 Occupational Therapy Visit Comments Patient Comments Pt agreed to work with OT. Patient/Caregiver Goals To go to rehab. OT Pain Assessment Pain When Pain Assessed During Mobility Pain Present Pain Present Pain Reported Location Right Ankle Intensity 6 Scale Used Numeric (0 - 10) M4 OT- IP ADL's Start: 12/25/21 15:17 Freq: Status: Active Protocol: Document 12/26/21 11:42 [facility] (Rec: 12/26/21 12:56 [facility] [id number]) OT MAK-Ehcd-Dscojac General Evaluation Self-Feeding Ability Standby Assistance Areas Needing Assistance Cutting Food,Opening Containers Comments OT Self-Feeding Comments Assist to cut up his food. OT ADL-Grooming General Evaluation Grooming Ability Minimal Assistance Comments OT Grooming Comments Yulia to help wash his right hand with wet wash cloth. OT ADL-Oral Care Comments Oral Care Comments Not performed. OT ADL-Dressing Comments OT Dressing Comments NOt performed. Unable to try as pt unable to lift his legs up to be able to try. Encouraged pt to work on tightening his muscles while in bed to try to maintain the strength in his RLE especially . OT ADL-Toileting General Evaluation Toileting Ability Total Assistance Devices Toileting Assistive Devices Bedpan Comments OT Toileting Comments Nursing states pt not wanting to have hospital bed assist to turn him. However due to pt size and able to explain to pt would be beneficial for nursing to help his for hygiene needs. Therefore after talking to nursing able to put on trapeze bar so pt able to hold it while pt being turned and feels more secure. M5 OT- IP IADL's Start: 12/25/21 15:17 Freq: Status: Active Protocol: Document 12/25/21 16:39 [facility] (Rec: 12/25/21 17:15 [facility] [id number]) OT-Instrumental Activities of Daily Living Medication Management Medication Management Comments Pt states did his own prior. Librarian Special Collections Librarian Special Collections Caregiver Provides Assist M6 OT- IP Functional Cognition Start: 12/25/21 15:17 Freq: Status: Active Protocol: Document 12/26/21 11:42 [facility] (Rec: 12/26/21 12:56 [facility] [id number]) Cognitive Factors Limiting Selfcare Function Cognitive Ability Memory Description Short Term Impaired Cognitive Comments Cognitive Assessment Comments Pt did not recall working with OT yesterday and had to be reminded initially of OT goals take he agreed to work on. Offered to look into getting a rocker knife if available from the kitchen and pt states would prefer to let staff cut the food for him. M7 OT- IP Mobility and Balance Start: 12/25/21 15:17 Freq: Status: Active Protocol: Document 12/26/21 11:42 [facility] (Rec: 12/26/21 12:56 [facility] [id number]) OT-Transfer Assessment Comments Mobility Comments Encourage nursing to get the pt up at least once a day with michael lift. At this time pt is not a functional transfer and michael lift is much more appropriate to use with the pt . Notified nursing and also that a more appropriate recliner to fit his size would be best. OT- Gait Assessment Comments Gait Ability Comments Unable to do at this time due to NWB status and prior only did stand pivot transfers. M8 OT- IP Objective Assessments Start: 12/25/21 15:17 Freq: Status: Active Protocol: Document 12/25/21 16:39 [facility] (Rec: 12/25/21 17:15 [facility] [id number]) OT Gross Range of Motion Upper Extremity Range of Motion Assessment Left Impaired ROM Impairments LUE internally rotated at shoulder, elbow, wrist and fingers. However able to passively open his left fingers and get his elbow to 30 degrees short of extension. OT Strength Comments Strength Comments Pt unable to move his LUE and has tone and contractures. OT-Muscle Tone Assessment Muscle Tone WNL No M9 OT- IP Assessment and Plan Start: 12/25/21 15:17 Freq: Status: Active Protocol: Document 12/26/21 11:42 [facility] (Rec: 12/26/21 12:56 [facility] [id number]) OT Summary Assessment and Plan Potential Rehabilitation Potential Poor Analytic Complexity at Evaluation High Summary OT Impairments Range of Motion,Strength, Balance,Tone,Functional Mobility,Self-Feeding,Grooming ,Dressing,Toileting,Bathing, Toilet Transfers,Shower Transfers,Activity Tolerance Progress Towards Goals Slow Progress due to Pain,Slow Progress due to Medical Issues,Slow Progress due to Activity Tolerance,Slow Progress due to Cognition Assessment Summary Pt not recalling working with OT yesterday. Able to help set up a trapeze bar for the pt so that he feels more comfortable while being turned in bed with nursing using the hospital tilt component of the bed to assist. In addition the trapeze bar for the pt to help readjust himself as best as he can with his RUE. Encouraged pt to use his muscles by tightening his thigh and glute muscles to try to maintain as much as he can as currently PT not seeing pt for therapy at this time due to pt is NWB for RLE and LLE not functional from old CVA. Goals Self-Feeding Goal Standby Assistance Grooming Goal Standby Assistance Dressing Goal Moderate Assistance Toileting Goal Standby Assistance OT-Other Goals Toileting need per use of urinal Days to Meet Goals 60 Frequency of Treatment Frequency Of Treatment Once a Day Treatment Plan OT Treatment Plan ADL Training,Functional Mobility,Patient/Family Education,Discharge Planning Discharge Recommendations OT Discharge Recommendations SNF Rehab,LTAC Transportation Needs at Discharge Stretcher/Ambulance
--- NOTE | 2021-12-26 15:32 | PC.NURSE ---
Addendum entered by Anuradha Jackson R.N. 12/26/21 15:49: Med @ this time w/zofran for nausea. Will assess Original Note: Pt resting at intervals Lungs clear, SpO2 95% RA Dsg & wraps to bilateral lower extremities CDI. Many skin issues as previously noted. Med at 1215 for discomfort w/fair relief. STAR Midline intact/patent. Received Influenza vaccine this morning. Call light w/in reach/ bed alarm on for pt safety. Continue w/plan of care.
[2021-12-26] MEDS: PANTOPRAZOLE DR 40 MG TABLET PO (15:41)
[2021-12-26] MEDS: ONDANSETRON 4 MG/2 ML INJ IV (15:41)
--- NOTE | 2021-12-26 16:18 | CM.DPC ---
Discharge Plan Cont: No new information today re guardianship. Referrals sent to [facility], [facility], Adriana Doshi, and [facility]. [facility] wanted to know if pt needed IV antibiotics, hospitalist informed he can transition to oral. [facility] wanted to know if pt used CPAP, assigned nurse reported pt did not. [facility] wanted to know how long pt will be splinted and unable to participate in PT this part I was not able to get information on to provide to them; I did inform about the antibiotics and CPAP. Sister lives in [place] and is ?very involved in patient?s care? per [facility] healthcare translator Neda . Sister can be reached at [phone]. PATRICA araujo mgr is Maritza at [employer] [phone]; voicemail left requesting info on caregiver contact and hours approved as well as asking if additional hours could be approved. New INMANSW
--- NOTE | 2021-12-26 17:05 | DIET.CONS ---
Dietary Consultation Note Admission Date: 12/25/2021 05:37 Assessment: 61 y/o M admitted with ankle fx. PMH sacral decubitus ulcers, DM, chronic lymphedema, KILLIAN, HLD, HTN, elevated BMI. Recent HgA1c of 7%. BG while admitted mostly 150-180 mg/dL. States he has been taking a sulfonylurea for BG. Currently 0-1u Lispro ac. Has h/o seeing RDs in the past. Saw RD in [facility] for DM ed in 2001. Current diet recall indicates higher sodium and carbohydrate intake. Limited vitamin c, fluids, fiber, and lean proteins. Limitation in cooking own meals due to mobility. Has a caregiver, but she does not cook his meals or help him grocery shop. States he sometimes cannot read food labels due to eye sight. Has tried [facility] in the past, does not like the meals. Diet recall: 12a: cupcakes 6a: frozen breakfast sandwich 10-12: [address] 5p: pizza or sandwich Beverages: 32oz water, 24oz sf soda Plans to d/c to SNF. Would benefit from OP RD/CDCES to help with nutrition once home. Ht: 175.26 cm Wt: 158 kg BMI: 51.4 Last BM: 12/25/21 (12/25/21 06:53) MNA: 13 Denis Score: 15 Diet: 12/25/21 Breakfast Carbohydrate Consistent Diet Diet Modifications: Carbohydrate level: Large (4 CHO) Bedtime snack: Yes Heart Healthy Diet Diet Modifications: Nutrition Percent Meal Consumed 100% 12/26/21 09:06 Percent Meal Consumed 100% 12/25/21 18:00 Percent Meal Consumed 100% 12/25/21 08:53 Labs: RBC 4.47 X10^6/uL (4.5-5.9) L 12/26/21 05:53 Hgb 10.3 g/dL (13.5-17.5) L 12/26/21 05:53 Hct 32.0 % (41-53) L 12/26/21 05:53 Creatinine 0.91 mg/dL (0.66-1.25) 12/25/21 04:30 Hemoglobin A1c 7.0 % (4.0-6.0) H 12/25/21 05:04 Nutrition Diagnosis: Predicted excessive carbohydrate intake r/t limitations with food prep and options aeb diet recall ; Excessive sodium intake r/t limitations in food prep aeb eating take out most days per diet recall ; Predicted inadequate vitamin c intake r/t increased needs for healing aeb diet recall and ulcers Interventions: Ray BID to support healing ; MNT for wound and DM Monitoring/Evaluations: RD f/u prn Electronically Signed by: Kaya Pantoja 12/26/21 17:05 Clinical Dietitian [address] [address]
--- NOTE | 2021-12-26 17:08 | PC.NURSE ---
pt Sister, Irma called [phone], wanting to speak with CEREAL CHEMIST, i will forward message to REYNALDO Diego.
[2021-12-26] MEDS: ACETAMINOPHEN 325 MG TABLET 650 MG PO (21:25)
[2021-12-26] MEDS: TRAZODONE 50 MG TABLET PO (21:26)
[2021-12-26] MEDS: ALBUTEROL 2.5 MG/3 ML NEB (ADULT) INH (22:12)
[2021-12-27] VITALS (13 sets, daily range): BP systolic 144–175; BP diastolic 73–94; PULSE 79–97; RESP 16–20; TEMP 36.7–36.8; O2SAT 91–96
[2021-12-27] MEDS: OXYCODONE IR 5 MG TABLET 10 MG PO ×3 (04:01→20:58)
[2021-12-27] MEDS: SODIUM CHLORIDE 0.9% FLUSH 10 ML IV ×3 (04:25→21:02)
[2021-12-27 04:29] LABS: Add Manual Diff / Slide Review NO; Basophils Absolute Auto 100 /uL (0-100); Basophils Percent Auto 1.2 % (0-2); Eosinophils Absolute Auto 100 /uL (0-450); Eosinophils Percent Auto 1.2 % (2-4); Hematocrit 32.8 % (41-53); Hemoglobin 10.6 g/dL (13.5-17.5); Lymphocytes Absolute Auto 1700 /uL (1100-4500); Lymphocytes Percent Auto 17.3 % (25-40); Mean Corpuscular HGB Conc 32.3 % (30-36); Mean Corpuscular Hemoglobin 23.2 PG (26-34); Monocytes Absolute Auto 600 /uL (0-900); Monocytes Percent Auto 5.7 % (3-14); Neutrophils Absolute Auto 7400 /uL (1500-7000); Neutrophils Percent Auto 74.6 % (50-75); Platelet Count 171 X10^3/uL (150-400); Red Blood Cell Count 4.56 X10^6/uL (4.5-5.9); White Blood Cell Count 9.9 X10^3/uL (4.5-11.0)
[2021-12-27 04:40] LABS: BUN Creatinine Ratio 10.3 (6-22); Blood Urea Nitrogen 11 mg/dL (9-20); Calcium 8.1 mg/dL (8.4-10.2); Carbon Dioxide 34 mmol/L (22-32); Chloride 97 mmol/L (98-107); Estimated Glomerular Filt Rate > 60.0 mL/min (>60); Glucose 169 mg/dL (70-100); HEMOLYSIS < 15 (0-50); Magnesium 1.6 mg/dL (1.6-2.3); Potassium 4.2 mmol/L (3.4-5.1); Sodium 133 mmol/L (137-145)
[2021-12-27] MEDS: ENOXAPARIN 40 MG/0.4 ML SYRINGE SUBCUT ×2 (08:31→21:01)
[2021-12-27] MEDS: carvediloL 12.5 MG TABLET 25 MG PO ×2 (08:32→21:30)
[2021-12-27] MEDS: CLOTRIMAZOLE/BETAMETHASONE CRM 15 GM 1 APPLIC TOP ×2 (08:33→21:12)
[2021-12-27] MEDS: INSULIN LISPRO 100 UNIT/ML 3ML VIAL SUBCUT ×4 (08:34→21:08)
--- NOTE | 2021-12-27 09:21 | PC.NURSE ---
Addendum entered by Josie Arndt R.N. 12/27/21 18:04: Patient sleeping and ready for bed. He denies pain at this time and is comfortable. Addendum entered by Josie Arndt R.N. 12/27/21 14:55: Patient up to chair earlier and is tolerating well. He was a three person assist to be hoyered. Patient given a bed bath and cream applied to bottom. He just asked for respiratory therapy to come up for his asthma symptoms. Otherwise he tolerated his antibiotic well Original Note: Assess- Patient seems to be in better spirits this morning. His blood sugar ws 187 and he received 1u of insulin. Patient has multiple wounds to his body that can be seen under body image from physical assessment. He has l.sided arm and leg weakness from a CVA in his past. Unable to move his l.arm independently or his leg. He has a wrap to his l.leg secondary to lymp edema. 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 Tolerating food well. Resting comfortably.
--- NOTE | 2021-12-27 11:30 | OT.IP.TRT ---
Current Diagnoses Lymphedema, not elsewhere classified (12/25/21) Occupational Therapy Treatment Note M2 OT-IP Current Condition Start: 12/25/21 15:17 Freq: Status: Active Protocol: Document 12/25/21 16:39 [facility] (Rec: 12/25/21 17:15 [facility] [id number]) Occupational Therapy Current Condition Current Condition Evaluation Date 12/25/21 Treatment Diagnosis Right ankle trimalleolar fracture dislocation, decreased mobility Diagnosis Onset Date 12/25/21 Weight Bearing Status Weight Bearing Status Non-Weight Bearing Allowed Weight Bearing Amount (enter % NWB to RLE or #) (%) M3 OT- IP Subjective and Pain Start: 12/25/21 15:17 Freq: Status: Active Protocol: Document 12/27/21 13:09 [facility] (Rec: 12/27/21 13:25 [facility] [id number]) OT- Subjective Occupational Therapy Visit Type Type Treatment Note Visit Start Time 11:00 Visit Stop Time 11:30 Total Visit Minutes 30 Occupational Therapy Visit Comments Patient Comments Pt agreed to get to the recliner via michael and participate in a sponge bath. Patient/Caregiver Goals TO go to skilled rehab. OT Pain Assessment Pain When Pain Assessed During Mobility Pain Present Pain Present Pain Reported Location Right Ankle Description Aching,Sharp,With Movement Pain Behaviors Calling Out,Facial Grimacing, Holding Area,Wincing M4 OT- IP ADL's Start: 12/25/21 15:17 Freq: Status: Active Protocol: Document 12/27/21 13:09 [facility] (Rec: 12/27/21 13:25 [facility] [id number]) OT ADL-Grooming Comments OT Grooming Comments Not performed. OT ADL-Oral Care Comments Oral Care Comments Not performed. OT ADL-Dressing General Eval Upper Body Dressing Ability Moderate Assistance Lower Body Dressing Ability Total Assistance Comments OT Dressing Comments MOd to help change out his gown. OT ADL-Toileting Comments OT Toileting Comments Pt able to use urinal in bed and needing assist to help raise on HOB with remote for proper positioning needs. OT ADL-Bathing Bathing Type Bathing Type Sponge Bath General Evaluation Bathing Ability Maximal Assistance Areas Needing Assistance Wash/Dry Upper Body,Wash/Dry Back,Wash/Dry Perineal Area, Wash/Dry Lower Extremities Comments OT Bathing Comments Pt insisting of doing his pericare needs, but needing cues for completeness. Pt able to assist to was his chest and left arm. Pt needing assist to wash/dry his right arm and to lift his left arm up so able to wash his armpit. M5 OT- IP IADL's Start: 12/25/21 15:17 Freq: Status: Active Protocol: Document 12/25/21 16:39 [facility] (Rec: 12/25/21 17:15 [facility] [id number]) OT-Instrumental Activities of Daily Living Medication Management Medication Management Comments Pt states did his own prior. Rear Admiral Rear Admiral Caregiver Provides Assist M6 OT- IP Functional Cognition Start: 12/25/21 15:17 Freq: Status: Active Protocol: Document 12/27/21 13:09 [facility] (Rec: 12/27/21 13:25 [facility] [id number]) Cognitive Factors Limiting Selfcare Function Cognitive Ability Level of Alertness Alert Patient Orientation Name,Age,Birthday,Month,Date, Year,Day of Week,Place, Situation Attention Span Ability Capable of Focused Attention, Capable of Sustained Attention Ability to Follow Commands Able to Follow One Step Commands Memory Description Short Term Impaired Cognitive Comments Cognitive Assessment Comments Pt needing concrete step by step cues to follow. Pt also needing re-explaining of instructions as pt having poor short term memory. Cognitive assessment would be beneficial to complete. M7 OT- IP Mobility and Balance Start: 12/25/21 15:17 Freq: Status: Active Protocol: Document 12/27/21 13:09 [facility] (Rec: 12/27/21 13:25 [facility] [id number]) OT- Bed Mobility Assessment Rolling Level of Assistance Total Assistance,2 Person Assistance,Bedrails M8 OT- IP Objective Assessments Start: 12/25/21 15:17 Freq: Status: Active Protocol: Document 12/25/21 16:39 [facility] (Rec: 12/25/21 17:15 [facility] [id number]) OT Gross Range of Motion Upper Extremity Range of Motion Assessment Left Impaired ROM Impairments LUE internally rotated at shoulder, elbow, wrist and fingers. However able to passively open his left fingers and get his elbow to 30 degrees short of extension. OT Strength Comments Strength Comments Pt unable to move his LUE and has tone and contractures. OT-Muscle Tone Assessment Muscle Tone WNL No M9 OT- IP Assessment and Plan Start: 12/25/21 15:17 Freq: Status: Active Protocol: Document 12/27/21 13:09 [facility] (Rec: 12/27/21 13:25 [facility] [id number]) OT Summary Assessment and Plan Potential Rehabilitation Potential Poor Analytic Complexity at Evaluation High Summary OT Impairments Range of Motion,Strength, Balance,Tone,Functional Mobility,Self-Feeding,Grooming ,Dressing,Toileting,Bathing, Toilet Transfers,Shower Transfers,Activity Tolerance Progress Towards Goals Progressing Toward Goals,Slow Progress due to Pain,Slow Progress due to Medical Issues ,Slow Progress due to Activity Tolerance,Slow Progress due to Cognition Assessment Summary Pt able to help lift his RLE more during bed mobility more and instead of total assist needing MAXA while rolling over the his left side. Pt able to participate in sponge bathing and agreed to sit up in the recliner via michael lift. Waffle cushion placed in recliner and spoke to nursing aid on having them check his skin and not to have him sit up too long. Pt would benefit from skilled rehab to maximize his independent and also to improve his mobility needs. COntinue to monitor his RLE movements to see if PT able to reassess/re-eval so able to see him for PT needs. Goals Self-Feeding Goal Standby Assistance Grooming Goal Standby Assistance Dressing Goal Moderate Assistance Toileting Goal Standby Assistance Bathing Goal Moderate Assistance Days to Meet Goals 59 Frequency of Treatment Frequency Of Treatment Once a Day Treatment Plan OT Treatment Plan ADL Training,Functional Mobility,Patient/Family Education,Discharge Planning Discharge Recommendations OT Discharge Recommendations SNF Rehab,LTAC Transportation Needs at Discharge Wheelchair/Cabulance
--- NOTE | 2021-12-27 11:33 | CM.DPNOTE ---
Addendum entered by Katie Bennett 12/27/21 12:31: Also faxed clinicals to [facility] [phone]; and [facility] [phone]. Katie Bennett CM assist. Original Note: Faxed clinicals referral packet to [facility], attn: Maritza fax [phone]. Received fax conf. Katie Bennett CM Assist.
[2021-12-27] MEDS: ALBUTEROL 2.5 MG/3 ML NEB (ADULT) INH ×2 (11:48→15:03)
--- NOTE | 2021-12-27 13:33 | CM.DPC ---
DCP SNF/LTC planning cont: Per MD, pt still requiring some medical care and updated on barriers/difficulty with SNF placement due to pt's higher care needs (wound care, obesity, 2-4PA with care due to non-weight baring status and current michael). Per PT, unable to work with pt much at this time and likely will d/c PT services but OT continuing to work with him on his ADL's and one good arm use right now due to ankle fx on his good leg and non-weight baring status. SW called previously faxed SNFs: [facility]- cannot accept pt as no dresser tender care beds available and high care needs [facility]- at their limit for bariatric pts [facility]- too high of care needs [facility]- too high care needs [facility]- no appropriate bed, high care needs, daily [facility] SW spoke to pt's PATR[facility] Maritza [phone] and updated on pt status and barriers to SNF rehab and too high care right now for [facility] or [facility]. Maritza will work on updating pt's assessment to reflect his current care needs since now he is non-weight baring and SW faxed clinicals for her review towards updating assessment to fax [phone] (Katie kindly faxed). Maritza states pt gets 166 hrs a month of [facility] hours and could likely qualify for more but due to the [facility] shortage of available staff, pt has not even been getting his 166 hrs a month. Pt only has one [facility] and threatened to fire her recently but Maritza talked pt into keeping her as no other available Caregivers at this time. SW met bedside with pt and updated on above and pt states he is well aware of the barriers to SNF rehab placement with his 3-4PA level at this time as pt states back in 2008 he was in a similar situation. Pt states in 2019 he went to [facility] for rehab. Pt aware that if he cannot progress enough to get back to prior baseline of independent transfers, he will likely need LTC placement. Pt's hope and preference would be to return to his apt with [facility] after SNF rehab but would be agreeable to LTC placment if needed. Pt confirms that his sister has been talking with him and is agreeable with SW keeping her updated on pt's status. SW called following SNF's for possible Rehab and then pending progress return home with [facility] vs LTC: [facility]- have rehab and LTC openings, willing to review, faxed referral [facility]- have rehab and LTC openings, willing to review, faxed referral [facility]- have rehab and LTC openings, willing to review, faxed referral [facility]- left detailed msg and faxed referral [facility]- left detailed msg and faxed referral [facility]- left detailed msg and faxed referral [facility]- left detailed msg and faxed referral SW called pt's sister Irma [phone] and updated her per pt request on above and she is also aware of the barriers and challenges to SNF placement and her hope is pt heals while at SNF rehab to return home but SW explained possible need for LTC placement if pt does not progress as anticipated at SNF rehab. Sister is aware of Medicare coverage for 100 days in a calendar year for SNF and SW explained Medicare requires pt to meet SNF criteria for continued coverage at SNF and could be 100 days in a row or maybe less pending his progress and meeting criteria for SNF rehab. She acknowledged understanding and was appreciative of any updates and aware w/e can be difficult for getting placement etc.. Per UR, sent pt's clinicals to EHR to review to determine if he can change from OBS status to Inpt Status. Plan: SW to continue attempting SNF placement under ideally Medicare SNF rehab before returning home with PATRICA vs SNF LTC placement pending progress with mobility/transfers. Greta Myers MSW
--- NOTE | 2021-12-27 15:21 | P.PN_ITS ---
Subjective Subjective Date Patient Seen: 12/27/21 Interval history: Patient is maximal for person assist. He came in with right ankle non operative fracture. 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 He will require hoarder lift for transfers. Exam Vital Signs (past 8 hours): - 12/27/21 08:36 12/27/21 09:15 12/27/21 11:16 Pulse Rate 97 H 93 H Respiratory Rate Blood Pressure 162/73 H Pulse Oximetry 92 93 12/27/21 12:06 12/27/21 12:09 Pulse Rate 88 95 H Respiratory Rate 20 20 Blood Pressure 175/90 H Pulse Oximetry 96 94 Oxygen Delivery Method Room Air Oxygen Flow Rate 0 Narrative Exam Narrative: General: Alert male sitting in chair in no acute distress Breathing is nonlabored Extremities: Bilateral chronic LE lymphedema with overlying skin changes unchanged Objective Labs Result Diagrams: 12/27/21 04:20 12/27/21 04:20 Labs: Laboratory Results - last 24 hr 12/27/21 12/27/21 04:20 04:20 WBC 9.9 RBC 4.56 Hgb 10.6 L Hct 32.8 L MCV 72.0 L MCH 23.2 L MCHC 32.3 RDW 18.0 H Plt Count 171 Neut % (Auto) 74.6 Lymph % (Auto) 17.3 L Arroyo % (Auto) 5.7 Eos % (Auto) 1.2 L Baso % (Auto) 1.2 Neut # (Auto) 7400 H Lymph # (Auto) 1700 Arroyo # (Auto) 600 Eos # (Auto) 100 Baso # (Auto) 100 Sodium 133 L Potassium 4.2 Chloride 97 L Carbon Dioxide 34 H BUN 11 Creatinine 1.07 Estimated GFR > 60.0 BUN/Creatinine Ratio 10.3 Glucose 169 H Calcium 8.1 L Magnesium 1.6 PFSH Medical History Asthma Chronic acquired lymphedema HTN (hypertension) Hyperlipidemia Morbid obesity with body mass index (BMI) of 40.0 to 49.9 Obstructive sleep apnea (04/03/20) Family History Family/Other Obesity Hypertension Diabetes mellitus Heart disease Dementia Social History household members: none Smoking Status: Never smoker Assessment & Plan Assessment & Plan narrative: 61-year-old male admitted to the hospital with morbid obesity, type 2 DM, hypertension, asthma, obstructive sleep apnea, history of stroke, who presents with a right ankle fracture/dislocation after a mechanical fall. 1. Right ankle fracture, non-operative * Patient has suffered a distal fibular fracture, and medial malleolar fracture which has been reduced and splinted * Given his significant morbid obesity he will be unable to transfer given the fracture right ankle * PT/OT on-board and appreciate their recommendations 2. Type 2 DM * Insulin sliding scale inpatient 3. Morbid obesity, class 3 * This is clearly had a significant impact on his morbidity, as his obesity likely is the cause of the right ankle fracture which is resulting in his inability to move and pivot at this point 4. Hypertension * Continue home carvedilol 25 mg bid, patient reports he no longer takes lisinopril, and is unsure why * Restarted lisinopril 10 mg daily due to persistent elevated BP 5. Obstructive sleep apnea * Patient denies use of CPAP at home 6. Sacral decubitus ulcer, stage III/IV * Given his significant obesity, and inability to move this is problematic as he is at high risk for further skin breakdown * Will cover with IV daptomycin for now, given likely surrounding cellulitis (started December 25, 2021) * He can transition to oral antibiotic after 1 week or on discharge 7. Elephantiasis, secondary to lymphedema * Chronic, continue his usual wound dressing 8. Intertrigo, likely Lanie, affecting many folds * Will start topical clotrimazole/betamethasone * Will start PO Diflucan 150 mg once weekly for 4 weeks (started December 25, 2021) 9. Asthma, likely made worse by copious marijuana use * Continue the albuterol inhaler, as needed VTE prophylaxis: Lovenox 40 mg bid Code: Full code Proxy: SisterChiquita Time Spent With Patient Critical Care time: I spent a total of [] minutes of critical care time on this patient's care today; this time is exclusive of procedural time.
--- NOTE | 2021-12-27 16:38 | OT.IPNOTE ---
Spoke to pt about calling to get his power wheelchair here in the hospital so that he could be more comfortable when upright and also to assess his mobility needs in the wc. To touch base with PT regarding if pt continues to improve with mobility needs for possible PT re-eval.
[2021-12-27] MEDS: PANTOPRAZOLE DR 40 MG TABLET PO (17:17)
[2021-12-27] MEDS: diphenhydrAMINE 25 MG TABLET 50 MG PO (20:59)
[2021-12-27] MEDS: TRAZODONE 50 MG TABLET PO ×2 (20:59→21:11)
[2021-12-27] MEDS: ONDANSETRON 4 MG/2 ML INJ IV (21:00)
[2021-12-28] VITALS (8 sets, daily range): BP systolic 132–155; BP diastolic 66–83; PULSE 77–91; RESP 16–19; TEMP 36.1–36.7; O2SAT 91–94
[2021-12-28] MEDS: OXYCODONE IR 5 MG TABLET 10 MG PO ×2 (01:54→06:41)
[2021-12-28] MEDS: CLOTRIMAZOLE/BETAMETHASONE CRM 15 GM 1 APPLIC TOP ×2 (07:54→22:11)
[2021-12-28] MEDS: INSULIN LISPRO 100 UNIT/ML 3ML VIAL SUBCUT ×4 (07:54→22:05)
[2021-12-28] MEDS: ENOXAPARIN 40 MG/0.4 ML SYRINGE SUBCUT ×2 (07:56→22:07)
[2021-12-28] MEDS: carvediloL 12.5 MG TABLET 25 MG PO ×2 (07:57→22:08)
--- NOTE | 2021-12-28 10:11 | P.PN_ITS ---
Subjective Subjective Date Patient Seen: 12/28/21 Interval history: Patient remains maximal assist. He came in with right ankle non operative fracture.? 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 He will require hoarder lift for transfers. He complains of constipation, no BM since admission. He is getting oxycodone as needed for pain secondary to ankle fracture. Exam Vital Signs (past 8 hours): - 12/28/21 05:00 12/28/21 09:00 Temperature 97.6 F Pulse Rate 79 86 Respiratory Rate 16 19 Blood Pressure 148/67 H 132/76 Pulse Oximetry 92 93 Oxygen Delivery Method Room Air Oxygen Flow Rate 0 Narrative Exam Narrative: General:? Alert male sitting in chair in no acute distress Breathing is nonlabored Extremities:? Bilateral chronic LE lymphedema with overlying skin changes unchanged Objective Labs Result Diagrams: 12/27/21 04:20 12/27/21 04:20 [facility] Medical History Asthma Chronic acquired lymphedema HTN (hypertension) Hyperlipidemia Morbid obesity with body mass index (BMI) of 40.0 to 49.9 Obstructive sleep apnea (04/03/20) Family History Family/Other Obesity Hypertension Diabetes mellitus Heart disease Dementia Social History household members: none Smoking Status: Never smoker Assessment & Plan Assessment & Plan narrative: 61-year-old male admitted to the hospital with morbid obesity, type 2 DM, hypertension, asthma, obstructive sleep apnea, history of stroke, who presents with a right ankle fracture/dislocation after a mechanical fall. 1. Right ankle fracture, non-operative * Patient has suffered a distal fibular fracture, and medial malleolar fracture which has been reduced and splinted * Given his significant morbid obesity he will be unable to transfer given the fracture right ankle * PT/OT on-board and appreciate their recommendations * Tylenol/oxycodone as needed * SNF rehab 2. Type 2 DM * A1c 7.0, severe obesity * Insulin sliding scale * Metformin 500 mg b.i.d. * This is clearly had a significant impact on his morbidity, as his obesity likely is the cause of the right ankle fracture which is resulting in his inability to move and pivot at this point. 3. Hypertension, adequately controlled * Continue home carvedilol 25 mg bid, patient reports he no longer takes lisinopril, and is unsure why 4. Obstructive sleep apnea * Patient denies use of CPAP at home. 5. Sacral decubitus ulcer, stage III/IV * Given his significant obesity, and inability to move this is problematic as he is at high risk for further skin breakdown * Will cover with IV daptomycin for now, given likely surrounding cellulitis (started December 25, 2021) * Will re-evaluate need for continued antibiotic after assessing wounds later today 6. Elephantiasis, secondary to lymphedema * Chronic, continue his usual wound dressing. 7. Intertrigo, likely Lanie, affecting many folds * Will start topical clotrimazole/betamethasone * Will start PO Diflucan 150 mg once weekly for 4 weeks (started December 25, 2021). 8. Asthma, likely made worse by copious marijuana use * Continue the albuterol inhaler, as needed 9. Insomnia * Continue trazodone 50 HS and Benadryl 50 HS per patient home routine 10. Constipation * Psyllium husk b.i.d. per patient home routine * MiraLax daily, docusate 100 b.i.d. VTE prophylaxis: Lovenox 40 mg bid Code: Full code Proxy: SisterChiquita Time Spent With Patient Critical Care time: I spent a total of [] minutes of critical care time on this patient's care today; this time is exclusive of procedural time.
[2021-12-28] MEDS: OXYCODONE IR 5 MG TABLET PO ×2 (11:11→16:06)
[2021-12-28] MEDS: ALBUTEROL 2.5 MG/3 ML NEB (ADULT) INH (11:37)
--- NOTE | 2021-12-28 11:43 | OT.IP.TRT ---
Current Diagnoses Lymphedema, not elsewhere classified (12/25/21) Occupational Therapy Treatment Note M2 OT-IP Current Condition Start: 12/25/21 15:17 Freq: Status: Active Protocol: Document 12/25/21 16:39 [facility] (Rec: 12/25/21 17:15 [facility] [id number]) Occupational Therapy Current Condition Current Condition Evaluation Date 12/25/21 Treatment Diagnosis Right ankle trimalleolar fracture dislocation, decreased mobility Diagnosis Onset Date 12/25/21 Weight Bearing Status Weight Bearing Status Non-Weight Bearing Allowed Weight Bearing Amount (enter % NWB to RLE or #) (%) M3 OT- IP Subjective and Pain Start: 12/25/21 15:17 Freq: Status: Active Protocol: Document 12/28/21 12:08 [facility] (Rec: 12/28/21 12:24 [facility] [id number]) OT- Subjective Occupational Therapy Visit Type Type Treatment Note Visit Start Time 10:56 Visit Stop Time 11:43 Total Visit Minutes 47 Occupational Therapy Visit Comments Patient Comments Pt agreed to work with OT and pt already up in the recliner via jose lift from nursing staff. Nursing states to have pt up for lunch through dinner and then jose back to bed. Patient/Caregiver Goals To get better and do more for himself. OT Pain Assessment Pain When Pain Assessed During Mobility Pain Present Pain Present Pain Reported Location Right Ankle Intensity 3 Scale Used Numeric (0 - 10) M4 OT- IP ADL's Start: 12/25/21 15:17 Freq: Status: Active Protocol: Document 12/28/21 12:08 [facility] (Rec: 12/28/21 12:24 [facility] [id number]) OT ADL-Grooming Comments OT Grooming Comments Pt not wanting to perform at this time. OT ADL-Dressing General Eval Lower Body Dressing Ability Maximum Assistance Comments OT Dressing Comments While seat on the recliner able to jadiel pull up brief up and over his RLE and able to actively move his RLE to assist (extension and abduction) which is a great improvement from yesterday. OT ADL-Toileting Comments OT Toileting Comments Jose to barriatric BSC or urinal at this time would be best M5 OT- IP IADL's Start: 12/25/21 15:17 Freq: Status: Active Protocol: Document 12/25/21 16:39 [facility] (Rec: 12/25/21 17:15 [facility] [id number]) OT-Instrumental Activities of Daily Living Medication Management Medication Management Comments Pt states did his own prior. Baton Teacher Baton Teacher Caregiver Provides Assist M6 OT- IP Functional Cognition Start: 12/25/21 15:17 Freq: Status: Active Protocol: Document 12/28/21 12:08 [facility] (Rec: 12/28/21 12:24 [facility] [id number]) Cognitive Factors Limiting Selfcare Function Cognitive Ability Level of Alertness Alert Patient Orientation Name,Age,Birthday,Month,Date, Year,Day of Week,Place, Situation Attention Span Ability Capable of Focused Attention, Capable of Sustained Attention Ability to Follow Commands Able to Follow One Step Commands Memory Description Short Term Impaired Cognitive Comments Cognitive Assessment Comments Pt states still trying to get his power wc in the hospital to use. Pt being proactive and requested a micro computer data processor to use so able to pickle processor items from the floor when they drop so not having to call nursing to assist for all needs. Pt able to use micro computer data processor safely and when out of his reach aware to call for assistance. M7 OT- IP Mobility and Balance Start: 12/25/21 15:17 Freq: Status: Active Protocol: Document 12/28/21 12:08 [facility] (Rec: 12/28/21 12:24 [facility] [id number]) OT- Balance Assessment Comments Other Balance Tests/Deviations/Treatment Pt able to sit in the recliner : with legs down and sit into anterior tilt and hold to work on his trunk core for 10 seconds at a time. Pt now able to actively extend his RLE into extension again gravity. Pt also able to abduct his legs to facilitate activation of his glutes muscles. Pt also able to pickle processor his knee slightly from the recliner. Noted much improvement and able to let PT know that pt is progressing. M9 OT- IP Assessment and Plan Start: 12/25/21 15:17 Freq: Status: Active Protocol: Document 12/28/21 12:08 [facility] (Rec: 12/28/21 12:24 [facility] [id number]) OT Summary Assessment and Plan Potential Rehabilitation Potential Fair Analytic Complexity at Evaluation High Summary OT Impairments Range of Motion,Strength, Balance,Tone,Functional Mobility,Self-Feeding,Grooming ,Dressing,Toileting,Bathing, Toilet Transfers,Shower Transfers,Activity Tolerance Progress Towards Goals Progressing Toward Goals Assessment Summary Pt able to active extend his RLE to be able to assist to jadiel brief over his RLE with use of micro computer data processor today while seated in the recliner. Pt able to show therapist glutes and leg straightening exercises that he has been working on his own. NOw able to add hip flexion as pt able to slightly lift right knee while seated in the recliner. Able to notify OT and hospitalist that pt is moving better with his RLE now and would possible benefit from PT re-eval. Touched base with nursing as pt issued a micro computer data processor in the room to be more proactive to do things for himself such as pickle processor the call light or tissue box if it falls on the floor. A piece of tape was taped to the tissue box so increase ease for pt to grab a hold of the tissue box. Pt has good safety awareness if items are too far away to call for assistance. IN addition able to let nursing know of exercised pt to be performing on his own and may need to have pain medications prior and that pt will ask. Pt very motivated to get better and states feels that he has a better handle on his pain now and therefore able to move his RLE more today. Pt would benefit from skilled rehab and then LTC to best maximize his independence for his needs. Goals Self-Feeding Goal Standby Assistance Grooming Goal Standby Assistance Dressing Goal Moderate Assistance Toileting Goal Standby Assistance Bathing Goal Moderate Assistance Days to Meet Goals 58 Frequency of Treatment Frequency Of Treatment Once a Day Treatment Plan OT Treatment Plan ADL Training,Functional Mobility,Patient/Family Education,Discharge Planning Discharge Recommendations OT Discharge Recommendations SNF Rehab,LTAC Transportation Needs at Discharge Wheelchair/Cabulance
[2021-12-28] MEDS: FLUCONAZOLE 100 MG TABLET 150 MG PO (12:52)
[2021-12-28] MEDS: SODIUM CHLORIDE 0.9% FLUSH 10 ML IV ×2 (12:54→22:08)
[2021-12-28] MEDS: polyethylene glycoL 3350 17 GM POWD.PACK PO (12:54)
[2021-12-28 13:28] LABS: Add Manual Diff / Slide Review NO; Basophils Absolute Auto 100 /uL (0-100); Basophils Percent Auto 1.3 % (0-2); Eosinophils Absolute Auto 100 /uL (0-450); Eosinophils Percent Auto 1.1 % (2-4); Hematocrit 33.3 % (41-53); Hemoglobin 10.7 g/dL (13.5-17.5); Lymphocytes Absolute Auto 1100 /uL (1100-4500); Lymphocytes Percent Auto 10.4 % (25-40); Mean Corpuscular HGB Conc 32.1 % (30-36); Mean Corpuscular Hemoglobin 23.4 PG (26-34); Mean Corpuscular Volume 72.7 fL (80-100); Monocytes Absolute Auto 700 /uL (0-900); Monocytes Percent Auto 6.2 % (3-14); Neutrophils Absolute Auto 8600 /uL (1500-7000); Platelet Count 194 X10^3/uL (150-400); Red Blood Cell Count 4.57 X10^6/uL (4.5-5.9); Red Cell Distribution Width 17.6 % (11.6-14.8); White Blood Cell Count 10.6 X10^3/uL (4.5-11.0)
[2021-12-28 13:43] LABS: Alanine Aminotransferase 20 IU/L (<50); Albumin 3.5 g/dL (3.5-5.0); Alkaline Phosphatase 112 U/L (38-126); Aspartate Aminotransferase 21 IU/L (17-59); BUN Creatinine Ratio 13.3 (6-22); Bilirubin Total 0.7 mg/dL (0.2-1.3); Blood Urea Nitrogen 14 mg/dL (9-20); Calcium 8.3 mg/dL (8.4-10.2); Carbon Dioxide 33 mmol/L (22-32); Chloride 94 mmol/L (98-107); Creatine Kinase 107 U/L (55-170); Estimated Glomerular Filt Rate > 60.0 mL/min (>60); Globulin 3.4 g/dL (1.7-4.1); Glucose 217 mg/dL (70-100); HEMOLYSIS < 15 (0-50); Potassium 4.5 mmol/L (3.4-5.1); Sodium 131 mmol/L (137-145); Total Protein 6.9 g/dL (6.3-8.2)
--- NOTE | 2021-12-28 14:57 | CM.DPC ---
Addendum entered by REYNALDO Moss 12/28/21 15:31: ADD: Call from Robert at [facility] ([facility]) and he states that his admin decline accepting pt due to high acuity needs. BF Original Note: DCP Ongoing SNF placement attempts: Per MD, pt continues with the IV-Abx for cellulitis and sacral decubitus and feels pt should likely meet Inpt Status. Per UR RN, some of pt's information was sent to EHR yesterday with a finding of outpt with bed and UR RN re-submitted today to review under cellulitis to confirm if pt could be changed to Inpt Status or not. Per OT, pt made some small progress with being able to move his leg somewhat today so PT may re-assess tomorrow Sun to determine if worthwhile to have PT involved as well as currently pt mostly only has use of his one arm. SW called following SNFs that were faxed pt's referral yesterday 12/27/21: [facility]- left msg inquiring about their review as they have rehab and LTC beds available. [facility]- left msg inquiring about their review as they have rehab and LTC beds available. [facility]- faxed referral and called but no admission staff until Mon but they have referral [facility]- refaxed referral and they will review, and they also have some LTC beds available. [facility]- reviewed, may be able to accept, but need DNS to review on Mon to confirm if they can accept. [facility]- faxed referral and left another msg today [facility]- faxed referral and left another msg today Plan: SW to follow closely for above SNFs review for plan of SNF rehab and then home with [facility] or more likely to turn into LTC at SNF facility. REYNALDO Moss
--- NOTE | 2021-12-28 15:49 | PC.NURSE ---
Addendum entered by Josie Arndt R.N. 12/28/21 18:39: Cream applied to patients bottom and waffle cushion applied under bottom. He is watching television and states that he is feeling better. Original Note: Assess- Patient is alert and oriented x3, he got up in the chair and sat for a few hours and then back to bed. He has multiple skin issues and some breakdown on his bottom. Patient is obese, and does not take good care of himself when at home. He does have diabetes that is not controlled. Lunch time blood sugar 199, 2u of insulin given. Patient uses the urinal to void and was incontinent of urine in bed, we gave him a bed bath and put cream in his groin and under his folds. Patient is comfortable and back to bed, watching television. He has a splinted cast to his r.ankle and a wrap to his left leg for his lymph edema. Given oxycodone earlier and helpful. Resting now.
[2021-12-28] MEDS: ONDANSETRON 4 MG/2 ML INJ IV (16:06)
[2021-12-28] MEDS: TRAZODONE 50 MG TABLET PO (22:07)
[2021-12-28] MEDS: diphenhydrAMINE 25 MG TABLET 50 MG PO (22:07)
[2021-12-28] MEDS: NYSTATIN CREAM 30 GM 1 APPLIC TOP (22:08)
[2021-12-29] VITALS (9 sets, daily range): BP systolic 129–150; BP diastolic 69–80; PULSE 78–85; RESP 16–18; TEMP 35.8–36.8; O2SAT 91–96
[2021-12-29] MEDS: ACETAMINOPHEN 325 MG TABLET 650 MG PO (05:35)
[2021-12-29] MEDS: OXYCODONE IR 5 MG TABLET PO ×3 (05:36→21:25)
[2021-12-29] MEDS: INSULIN LISPRO 100 UNIT/ML 3ML VIAL SUBCUT ×4 (08:06→21:19)
[2021-12-29] MEDS: PSYLLIUM HUSK 1 PACKET PO (08:53)
[2021-12-29] MEDS: SODIUM CHLORIDE 0.9% FLUSH 10 ML IV (08:54)
[2021-12-29] MEDS: ENOXAPARIN 40 MG/0.4 ML SYRINGE SUBCUT ×2 (08:54→21:18)
[2021-12-29] MEDS: carvediloL 12.5 MG TABLET 25 MG PO ×2 (09:01→21:19)
[2021-12-29] MEDS: ONDANSETRON 4 MG/2 ML INJ IV (10:59)
--- NOTE | 2021-12-29 13:34 | P.PN_ITS ---
Subjective Subjective Date Patient Seen: 12/29/21 Interval history: 61-year-old male with left hemiplegia from prior stroke, severe obesity, diabetes, chronic lymphedema admitted after right ankle non operative fracture. He is maximal assist and requiring placement. Exam Vital Signs (past 8 hours): - 12/29/21 08:00 12/29/21 09:01 12/29/21 09:26 Temperature 97.1 F L Pulse Rate 78 78 Respiratory Rate 16 Blood Pressure 130/75 130/75 Pulse Oximetry 93 92 12/29/21 11:49 Temperature 96.5 F L Pulse Rate 81 Respiratory Rate 16 Blood Pressure 139/69 Pulse Oximetry 93 Oxygen Delivery Method Room Air Oxygen Flow Rate 0 Narrative Exam Narrative: General: Alert, comfortable appearing Breathing nonlabored Chronic lymphedema in legs unchanged, has ankle splint on right side Objective Labs Result Diagrams: 12/28/21 13:20 12/28/21 13:20 Labs: Laboratory Results - last 24 hr 12/28/21 12/28/21 13:20 13:20 WBC 10.6 RBC 4.57 Hgb 10.7 L Hct 33.3 L MCV 72.7 L MCH 23.4 L MCHC 32.1 RDW 17.6 H Plt Count 194 Neut % (Auto) 81.0 H Lymph % (Auto) 10.4 L Anderson % (Auto) 6.2 Eos % (Auto) 1.1 L Baso % (Auto) 1.3 Neut # (Auto) 8600 H Lymph # (Auto) 1100 Anderson # (Auto) 700 Eos # (Auto) 100 Baso # (Auto) 100 Sodium 131 L Potassium 4.5 Chloride 94 L Carbon Dioxide 33 H BUN 14 Creatinine 1.05 Estimated GFR > 60.0 BUN/Creatinine Ratio 13.3 Glucose 217 H Calcium 8.3 L Total Bilirubin 0.7 AST 21 ALT 20 Alkaline Phosphatase 112 Total Creatine Kinase 107 Total Protein 6.9 Albumin 3.5 Globulin 3.4 Albumin/Globulin Ratio 1.0 [facility] Medical History Asthma Chronic acquired lymphedema HTN (hypertension) Hyperlipidemia Morbid obesity with body mass index (BMI) of 40.0 to 49.9 Obstructive sleep apnea (04/03/20) Family History Family/Other Obesity Hypertension Diabetes mellitus Heart disease Dementia Social History household members: none Smoking Status: Never smoker Assessment & Plan Assessment & Plan narrative: 61-year-old male admitted to the hospital with morbid obesity, type 2 DM, hypertension, asthma, obstructive sleep apnea, left hemiplegia secondary to history of stroke, who presents with a right ankle fracture/dislocation after a mechanical fall. 1. Right ankle fracture, non-operative * Patient has suffered a distal fibular fracture, and medial malleolar fracture which has been reduced and splinted * Given his significant morbid obesity he will be unable to transfer given the fracture right ankle * PT/OT on-board and appreciate their recommendations * Tylenol/oxycodone as needed * SNF rehab 2. Type 2 DM, adequately controlled * A1c 7.0, severe obesity * Insulin sliding scale * Glimepiride 2 mg q.d. per home routine * Continue patient's atorvastatin 3. Severe obesity, BMI greater than 50 * This is clearly had a significant impact on his morbidity, as his obesity likely is the cause of the right ankle fracture which is resulting in his inability to move and pivot at this point. 4. Hypertension, chronic * Continue carvedilol 25 mg b.i.d., increased from home dosage 5.? Obstructive sleep apnea * Patient denies use of CPAP at home. 6. Sacral decubitus ulcer, unstageable * Given his significant obesity, and inability to move this is problematic as he is at high risk for further skin breakdown * Treated with daptomycin through December 28 for possible surrounding cellulitis * On current exam there is no appearance of ongoing cellulitis 7. Elephantiasis, secondary to lymphedema * Chronic, continue his usual wound dressing. 8. Intertrigo, likely Lanie, affecting many folds * Continue with nystatin topical * Also on PO Diflucan 150 mg once weekly for 4 weeks (started December 25, 2021) 9. Asthma, likely made worse by copious marijuana use * Continue the albuterol inhaler, as needed 9. Insomnia * Continue home routine-takes 50 mg trazodone and 50 mg Benadryl at 6:00 p.m. and 50 mg Benadryl at midnight 10. Constipation * Psyllium husk b.i.d. per patient home routine * MiraLax daily, docusate 100 b.i.d. VTE prophylaxis: Lovenox 40 mg bid Code: Full code Proxy: SisterChiquita Time Spent With Patient Critical Care time: I spent a total of [] minutes of critical care time on this patient's care tod ay; this time is exclusive of procedural time.
[2021-12-29] MEDS: TRAZODONE 50 MG TABLET PO (17:12)
[2021-12-29] MEDS: diphenhydrAMINE 25 MG TABLET 50 MG PO (17:12)
[2021-12-29] MEDS: ATORVASTATIN 20 MG TABLET PO (21:19)
[2021-12-30] VITALS (9 sets, daily range): BP systolic 122–147; BP diastolic 62–78; PULSE 80–84; RESP 16–18; TEMP 36.1–36.8; O2SAT 91–95
[2021-12-30] MEDS: diphenhydrAMINE 25 MG TABLET 50 MG PO ×2 (00:20→17:44)
[2021-12-30] MEDS: ACETAMINOPHEN 325 MG TABLET 650 MG PO (08:36)
[2021-12-30] MEDS: INSULIN LISPRO 100 UNIT/ML 3ML VIAL SUBCUT ×3 (08:39→17:35)
[2021-12-30] MEDS: polyethylene glycoL 3350 17 GM POWD.PACK PO (08:40)
[2021-12-30] MEDS: GLIMEPIRIDE 2 MG TABLET PO (08:41)
[2021-12-30] MEDS: PANTOPRAZOLE DR 20 MG TABLET PO (08:41)
[2021-12-30] MEDS: carvediloL 12.5 MG TABLET 25 MG PO ×2 (08:41→20:10)
[2021-12-30] MEDS: PSYLLIUM HUSK 1 PACKET PO ×2 (08:47→20:12)
[2021-12-30] MEDS: DOCUSATE 100 MG CAPSULE 200 MG PO (08:48)
[2021-12-30] MEDS: ENOXAPARIN 40 MG/0.4 ML SYRINGE SUBCUT ×2 (08:48→20:10)
[2021-12-30] MEDS: SODIUM CHLORIDE 0.9% FLUSH 10 ML IV (08:48)
[2021-12-30] MEDS: NYSTATIN CREAM 30 GM 1 APPLIC TOP (08:49)
--- NOTE | 2021-12-30 11:31 | CM.DPC ---
DCP continued: CM called to check on SNF options for this patient - CM called [facility]- they are currently on a stop hold and not able to accept any straight medicare patients at this time Arti- CM called and LVM checking on potential placement [facility]- unable to accept to there facility due to marijuana daily use [place]-LVM checking on bed availability [facility] [place]- not able to accept [facility]- they are currently reviewing and needed to know covid status- which is negative and if he has had all three Covid vaccinations - which he has and he will need to agree to not use Marijuana at there facility while he is there. CM will talk with the patient and verify he understands these conditions- there medical team is reviewing and will let CM know later today if they can accept. Zahraa- left another msg today Plan: CM will continue to follow up with SNF to find an approving facility. CM will talk with patient to come up with a secondary Discharge plan since SNF DC is unlikely at this time. Shanita smith RNliquefaction supervisor
--- NOTE | 2021-12-30 12:55 | OT.IP.TRT ---
Current Diagnoses Lymphedema, not elsewhere classified (12/28/21) Occupational Therapy Treatment Note M2 OT-IP Current Condition Start: 12/25/21 15:17 Freq: Status: Active Protocol: Document 12/25/21 16:39 CCC (Rec: 12/25/21 17:15 [facility] [id number]) Occupational Therapy Current Condition Current Condition Evaluation Date 12/25/21 Treatment Diagnosis Right ankle trimalleolar fracture dislocation, decreased mobility Diagnosis Onset Date 12/25/21 Weight Bearing Status Weight Bearing Status Non-Weight Bearing Allowed Weight Bearing Amount (enter % NWB to RLE or #) (%) M3 OT- IP Subjective and Pain Start: 12/25/21 15:17 Freq: Status: Active Protocol: Document 12/30/21 13:03 CGR (Rec: 12/30/21 13:16 [facility]GR [id number]) OT- Subjective Occupational Therapy Visit Type Type Progress Note Visit Start Time 12:29 Visit Stop Time 12:55 Total Visit Minutes 26 Notes Pt sitting up in bed OT Pain Assessment Pain When Pain Assessed During Mobility Pain Present Pain Present Pain Reported Location Back Scale Used did not rate Management Techniques Distraction,Modification of Treatment,Re-positioning M4 OT- IP ADL's Start: 12/25/21 15:17 Freq: Status: Active Protocol: Document 12/30/21 13:03 CGR (Rec: 12/30/21 13:16 CGR [id number]) OT [id number] General Evaluation Self-Feeding Ability Independent Comments OT Self-Feeding Comments Pt finishing lunch when OT entered OT ADL-Grooming Comments OT Grooming Comments not performed OT ADL-Oral Care Comments Oral Care Comments not performed OT ADL-Dressing Comments OT Dressing Comments Not performed on this date OT ADL-Toileting Comments OT Toileting Comments not performed OT ADL-Bathing Bathing Type Bathing Type Sponge Bath General Evaluation Bathing Ability Maximal Assistance Areas Needing Assistance Wash/Dry Back Comments OT Bathing Comments washed pt's back while seated EOB M5 OT- IP IADL's Start: 12/25/21 15:17 Freq: Status: Active Protocol: Document 12/25/21 16:39 CCC (Rec: 12/25/21 17:15 CCC [id number]) OT-Instrumental Activities of Daily Living Medication Management Medication Management Comments Pt states did his own prior. 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 (Rec: 12/28/21 12:24 [facility] [id number]) Cognitive Factors Limiting Selfcare Function Cognitive Ability Level of Alertness Alert Patient Orientation Name,Age,Birthday,Month,Date, Year,Day of Week,Place, Situation Attention Span Ability Capable of Focused Attention, Capable of Sustained Attention Ability to Follow Commands Able to Follow One Step Commands Memory Description Short Term Impaired Cognitive Comments Cognitive Assessment Comments Pt needing reminders to try to get his power wc in the hospital to use. Pt being proactive and requested a sports bookmaker to use so able to cloth picker items from the floor when they drop so not having to call nursing to assist for all needs. Pt able to use sports bookmaker safely and when out of his reach aware to call for assistance. M7 OT- IP Mobility and Balance Start: 12/25/21 15:17 Freq: Status: Active Protocol: Document 12/30/21 13:03 CGR (Rec: 12/30/21 13:16 CGR [id number]) OT- Bed Mobility Assessment Supine to Sit Supine to Sit Assist Maximum Assistance,1 Person Assistance,Head of Bed Elevated,Bedrails Sit to Supine Sit to Supine Assist Maximum Assistance,1 Person Assistance,Head of Bed Elevated,Bedrails Scooting Scooting Up and Down in Bed Total Assistance,Bedrails OT-Transfer Assessment Comments Mobility Comments Unable to perform OT- Balance Assessment Sitting Balance and Reactions Static Sitting Balance Ability Poor M8 OT- IP Objective Assessments Start: 12/25/21 15:17 Freq: Status: Active Protocol: Document 12/25/21 16:39 [facility] (Rec: 12/25/21 17:15 [facility] [id number]) OT Gross Range of Motion Upper Extremity Range of Motion Assessment Left Impaired ROM Impairments LUE internally rotated at shoulder, elbow, wrist and fingers. However able to passively open his left fingers and get his elbow to 30 degrees short of extension. OT Strength Comments Strength Comments Pt unable to move his LUE and has tone and contractures. OT-Muscle Tone Assessment Muscle Tone WNL No M9 OT- IP Assessment and Plan Start: 12/25/21 15:17 Freq: Status: Active Protocol: Document 12/30/21 13:03 CGR (Rec: 12/30/21 13:16 CGR [id number]) OT Summary Assessment and Plan Potential Rehabilitation Potential Fair Analytic Complexity at Evaluation High Summary OT Impairments Range of Motion,Strength, Balance,Tone,Functional Mobility,Self-Feeding,Grooming ,Dressing,Toileting,Bathing, Toilet Transfers,Shower Transfers,Activity Tolerance Progress Towards Goals Progressing Toward Goals Assessment Summary Pt sitting up in bed when OT entered. Pt agreeable to sitting EOB for ADLs and needed max a for scooting to the edge of the bed. Pt was unable to maintain sitting balance without use of his R arm and states that his back hurts sitting up. Pt fatigues quickly sitting and was assisted back to supine in bed . 3 person assist for pulling pt up in bed with bed in reverse trendelenburg. As pt's feet were hanging off the bed one person was needed to hold pt's legs up during the transition. Pt then situated in bed and left sitting up in bed at end of session. Goals Self-Feeding Goal Standby Assistance Grooming Goal Standby Assistance Dressing Goal Moderate Assistance Toileting Goal Standby Assistance Bathing Goal Moderate Assistance Days to Meet Goals 58 Frequency of Treatment Frequency Of Treatment Once a Day Treatment Plan OT Treatment Plan ADL Training,Functional Mobility,Patient/Family Education,Discharge Planning Other Treatment Recommendations and Next Sitting balance after being Treatment Focus hoyered to recliner. Discharge Recommendations OT Discharge Recommendations SNF Rehab,LTAC Transportation Needs at Discharge Wheelchair/Cabulance
--- NOTE | 2021-12-30 14:37 | P.PN_ITS ---
Subjective Subjective Date Patient Seen: 12/30/21 Time Patient Seen: 08:00 Interval history: Today he has no new complaints. His foot pain is controlled. Exam Vital Signs (past 8 hours): - 12/30/21 08:00 12/30/21 08:41 12/30/21 09:22 Temperature 97.6 F Pulse Rate 82 82 Respiratory Rate 18 Blood Pressure 135/74 135/74 Pulse Oximetry 91 95 12/30/21 12:00 Temperature 97.9 F Pulse Rate 83 Respiratory Rate 18 Blood Pressure 139/78 Pulse Oximetry 92 Oxygen Delivery Method Room Air Oxygen Flow Rate 0 Narrative Exam Narrative: General:? Alert, comfortable appearing Breathing nonlabored Chronic lymphedema in legs unchanged, has ankle splint on right side Objective Labs Result Diagrams: 12/28/21 13:20 12/28/21 13:20 [facility] Medical History Asthma Chronic acquired lymphedema HTN (hypertension) Hyperlipidemia Morbid obesity with body mass index (BMI) of 40.0 to 49.9 Obstructive sleep apnea (04/03/20) Family History Family/Other Obesity Hypertension Diabetes mellitus Heart disease Dementia Social History household members: none Smoking Status: Never smoker Assessment & Plan Assessment & Plan narrative: 61-year-old male admitted to the hospital with morbid obesity, type 2 DM, hypertension, asthma, obstructive sleep apnea, left hemiplegia secondary to history of stroke, who presents with a right ankle fracture/dislocation after a mechanical fall. 1. Right ankle fracture, non-operative -Patient has suffered a distal fibular fracture, and medial malleolar fracture which has been reduced and splinted -Given his significant morbid obesity he will be unable to transfer given the fracture right ankle -PT/OT on-board and appreciate their recommendations -Tylenol/oxycodone as needed -SNF rehab 2. Type 2 DM, adequately controlled -A1c 7.0, severe obesity -Insulin sliding scale -Glimepiride 2 mg q.d. per home routine -Continue patient's atorvastatin 3.? Severe obesity, BMI greater than 50 -This is clearly had a significant impact on his morbidity, as his obesity likely is the cause of the right ankle fracture which is resulting in his inability to move and pivot at this point. 4. Hypertension, chronic -Continue carvedilol 25 mg b.i.d., increased from home dosage 5.? Obstructive sleep apnea -Patient denies use of CPAP at home 6. Sacral decubitus ulcer, unstageable, resolved Given his significant obesity, and inability to move this is problematic as he is at high risk for further skin breakdown -Treated with daptomycin through December 28 for possible surrounding cellulitis 7. Elephantiasis, secondary to lymphedema -Chronic, continue his usual wound dressing. 8. Intertrigo, likely Lanie, affecting many folds -Continue with nystatin topical -Also on PO Diflucan 150 mg once weekly for 4 weeks (started December 25, 2021)9. Asthma, likely made worse by copious marijuana use -Continue the albuterol inhaler, as needed 9. Insomnia -Continue home routine-takes 50 mg trazodone and 50 mg Benadryl at 6:00 p.m. and 50 mg Benadryl at [id number]. Constipation -Psyllium husk b.i.d. per patient home routine -MiraLax daily, docusate 100 b.i.d. Dispo: patient is medically stable for discharge, pending dispo Time Spent With Patient Critical Care time: I spent a total of [] minutes of critical care time on this patient's care today; this time is exclusive of procedural time.
[2021-12-30] MEDS: TRAZODONE 50 MG TABLET PO (17:44)
[2021-12-30] MEDS: ATORVASTATIN 20 MG TABLET PO (20:10)
[2021-12-30] MEDS: OXYCODONE IR 5 MG TABLET PO (20:12)
[2021-12-31] VITALS (8 sets, daily range): BP systolic 118–156; BP diastolic 63–86; PULSE 76–86; RESP 16–20; TEMP 36.4–36.7; O2SAT 92–97
[2021-12-31] MEDS: diphenhydrAMINE 25 MG TABLET 50 MG PO ×3 (00:26→23:30)
[2021-12-31] MEDS: OXYCODONE IR 5 MG TABLET PO ×3 (06:21→23:30)
[2021-12-31] MEDS: carvediloL 12.5 MG TABLET 25 MG PO ×2 (08:41→20:17)
[2021-12-31] MEDS: DOCUSATE 100 MG CAPSULE 200 MG PO (08:41)
[2021-12-31] MEDS: ENOXAPARIN 40 MG/0.4 ML SYRINGE SUBCUT ×2 (08:41→20:18)
[2021-12-31] MEDS: polyethylene glycoL 3350 17 GM POWD.PACK PO (08:42)
[2021-12-31] MEDS: PSYLLIUM HUSK 1 PACKET PO ×2 (08:42→20:17)
[2021-12-31] MEDS: GLIMEPIRIDE 2 MG TABLET PO (08:42)
[2021-12-31] MEDS: PANTOPRAZOLE DR 20 MG TABLET PO (08:42)
[2021-12-31] MEDS: INSULIN LISPRO 100 UNIT/ML 3ML VIAL SUBCUT ×4 (08:43→20:19)
--- NOTE | 2021-12-31 09:17 | CM.DPC ---
Addendum entered by Shanita Lucas R.N. 12/31/21 12:50: JOSY spoke with Maritza at [facility] and she stated that the patient does not have a michael lift at his home but that she will work on getting one to his home. Maritza will also be working on getting patient [facility] in [place] over[facility] by [facility]. She stated she will work on this with her supervisor ride assembly and work on both so we can proceed with a safe DC plan for the patient either home with a hoyerlift and his ernst caregiver and [facility] Hach program or to a SNF once one is found with a bariatric bed. Shanita Lucas forest supervisor Original Note: DCP continued: JOSY spoke with patients porter sample case with [facility] who stated the patient currently has 166 hours of care giving services approved a month and has one caregiver that provides care for 100 hours a month currently. Maritza - with [facility] stated that they are having a hard time finding caregivers but are working to get new caregivers in with the patient. JOSY explained the challenges with finding a SNF placement for the patient since he currently smokes marijuana daily. Cm asked patient if he was willing to stop smoking to find a facility and he stated he does not want to stop but will if he absolutely needs to. CM faxed clinicals to signature for their Hach program to review. CM celled and LVM for Maritza at [facility] to check on if the patient has a life at home to help with transfers? CM called [facility] [phone] LVM to check on if the patient could possible go to the [facility] care center SNF in [place] that is overseen by [facility]. JOSY will start sending SNF referrals to facilities in [facility] and [facility] as well to find location for the patient. who have bariatric beds CM called [facility]: LVM and faxed clinicals for review [facility] in [place]- does not have a bariatric beds so are not able to accept [facility]- [facility] is reviewing but no beds until at least at the earliest [facility] care and rehab- LVM and faxed clinicals for review [facility]- LVM and faxed clinicals for review will continue to work with [facility], [facility] and [facility] to work on a safe appropriate DC plan. Shanita Lucas RNplastic manager
--- NOTE | 2021-12-31 11:07 | OT.IPNOTE ---
Pt refusing to do therapy at this time as just found out may have to go home. Case management still looking for placement options, if having to go home whether pt can have increased PATRICA at home and michael lift as pt is dependent on the michael lift at this time due to NWB to RLE and LLE non functional due history of CVA.
--- NOTE | 2021-12-31 12:13 | P.PN_ITS ---
Subjective Subjective Date Patient Seen: 12/31/21 Time Patient Seen: 08:00 Interval history: His leg pain is controlled. He has many specific requests about timing of his medications. Exam Vital Signs (past 8 hours): - 12/31/21 05:00 12/31/21 08:00 12/31/21 08:41 Temperature 97.9 F 97.6 F Pulse Rate 76 82 82 Respiratory Rate 18 20 Blood Pressure 131/82 118/74 118/74 Pulse Oximetry 97 93 12/31/21 09:25 12/31/21 11:00 Temperature 97.8 F Pulse Rate 81 Respiratory Rate 20 Blood Pressure 126/73 Pulse Oximetry 92 96 Oxygen Delivery Method Room Air Oxygen Flow Rate 0 Narrative Exam Narrative: General:? Alert, comfortable appearing Breathing nonlabored Chronic lymphedema in legs unchanged, has ankle splint on right side Objective Labs Result Diagrams: 12/28/21 13:20 12/28/21 13:20 [facility] Medical History Asthma Chronic acquired lymphedema HTN (hypertension) Hyperlipidemia Morbid obesity with body mass index (BMI) of 40.0 to 49.9 Obstructive sleep apnea (04/03/20) Family History Family/Other Obesity Hypertension Diabetes mellitus Heart disease Dementia Social History household members: none Smoking Status: Never smoker Assessment & Plan Assessment & Plan narrative: 61-year-old male admitted to the hospital with morbid obesity, type 2 DM, hypertension, asthma, obstructive sleep apnea, left hemiplegia secondary to history of stroke, who presents with a right ankle fracture/dislocation after a mechanical fall. 1. Right ankle fracture, non-operative -Patient has suffered a distal fibular fracture, and medial malleolar fracture which has been reduced and splinted -Given his significant morbid obesity he will be unable to transfer given the fracture right ankle -PT/OT on-board and appreciate their recommendations -Tylenol/oxycodone as needed -SNF rehab 2. Type 2 DM, adequately controlled -A1c 7.0, severe obesity -Insulin sliding scale -Glimepiride 2 mg q.d. per home routine -Continue patient's atorvastatin 3.? Severe obesity, BMI greater than 50 -This is clearly had a significant impact on his morbidity, as his obesity likely is the cause of the right ankle fracture which is resulting in his inability to move and pivot at this point. 4. Hypertension, chronic -Continue carvedilol 25 mg b.i.d., increased from home dosage 5.? Obstructive sleep apnea -Patient denies use of CPAP at home 6. Sacral decubitus ulcer, unstageable, resolved Given his significant obesity, and inability to move this is problematic as he is at high risk for further skin breakdown -Treated with daptomycin through December 28 for possible surrounding cellulitis 7. Elephantiasis, secondary to lymphedema -Chronic, continue his usual wound dressing. 8. Intertrigo, likely Lanie, affecting many folds -Continue with nystatin topical -Also on PO Diflucan 150 mg once weekly for 4 weeks (started December 25, 2021) 9. Asthma, likely made worse by copious marijuana use -Continue the albuterol inhaler, as needed 9. Insomnia -Continue home routine-takes 50 mg trazodone and 50 mg Benadryl at 6:00 p.m. and 50 mg Benadryl at midnight 10. Constipation -Psyllium husk b.i.d. per patient home routine -MiraLax daily, docusate 100 b.i.d. Dispo: patient is medically stable for discharge, pending dispo Time Spent With Patient Critical Care time: I spent a total of [] minutes of critical care time on this patient's care today; this time is exclusive of procedural time.
[2021-12-31] MEDS: NYSTATIN CREAM 30 GM 1 APPLIC TOP ×2 (12:45→20:21)
--- NOTE | 2021-12-31 13:14 | OT.IP.TRT ---
Current Diagnoses Morbid (severe) obesity due to excess calories (12/28/21) Lymphedema, not elsewhere classified (12/28/21) Occupational Therapy Treatment Note M2 OT-IP Current Condition Start: 12/25/21 15:17 Freq: Status: Active Protocol: Document 12/25/21 16:39 [facility] (Rec: 12/25/21 17:15 [facility] [id number]) Occupational Therapy Current Condition Current Condition Evaluation Date 12/25/21 Treatment Diagnosis Right ankle trimalleolar fracture dislocation, decreased mobility Diagnosis Onset Date 12/25/21 Weight Bearing Status Weight Bearing Status Non-Weight Bearing Allowed Weight Bearing Amount (enter % NWB to RLE or #) (%) M3 OT- IP Subjective and Pain Start: 12/25/21 15:17 Freq: Status: Active Protocol: Document 12/31/21 13:20 [facility] (Rec: 12/31/21 13:31 [facility] [id number]) OT- Subjective Occupational Therapy Visit Type Type Treatment Note Visit Start Time 13:05 Visit Stop Time 13:14 Total Visit Minutes 9 Occupational Therapy Visit Comments Patient Comments Pt agreed to try to do some bed mobility and show therapist his leg exercises and what he has been able to work on his own. Patient/Caregiver Goals To get better and do more for himself. OT Pain Assessment Pain When Pain Assessed During Mobility Pain Present Pain Present Pain Reported M5 OT- IP IADL's Start: 12/25/21 15:17 Freq: Status: Active Protocol: Document 12/25/21 16:39 [facility] (Rec: 12/25/21 17:15 [facility] [id number]) OT-Instrumental Activities of Daily Living Medication Management Medication Management Comments Pt states did his own prior. Buttonhole Tacker Buttonhole Tacker Caregiver Provides Assist M6 OT- IP Functional Cognition Start: 12/25/21 15:17 Freq: Status: Active Protocol: Document 12/28/21 12:08 [facility] (Rec: 12/28/21 12:24 [facility] [id number]) Cognitive Factors Limiting Selfcare Function Cognitive Ability Level of Alertness Alert Patient Orientation Name,Age,Birthday,Month,Date, Year,Day of Week,Place, Situation Attention Span Ability Capable of Focused Attention, Capable of Sustained Attention Ability to Follow Commands Able to Follow One Step Commands Memory Description Short Term Impaired Cognitive Comments Cognitive Assessment Comments Pt needing reminders to try to get his power wc in the hospital to use. Pt being proactive and requested a wheelchair van operator first responder to use so able to pickler helper items from the floor when they drop so not having to call nursing to assist for all needs. Pt able to use wheelchair van operator first responder safely and when out of his reach aware to call for assistance. M7 OT- IP Mobility and Balance Start: 12/25/21 15:17 Freq: Status: Active Protocol: Document 12/31/21 13:20 [facility] (Rec: 12/31/21 13:31 [facility] [id number]) OT-Transfer Assessment Comments Mobility Comments Pt able to use right hand to grab the grab bar of the hospital bed and raise up his RLE but not able to hold and lift across midline in order to assist to roll as pt prior uses his R foot to push up on the bed to assist to roll. Pt while in supine able to extend his RLE off the bed for one minute at a time now. Pt able to slide his right knee up a little but needing assist to help hold the weight on his leg at this time. Per nursing aid pt able to do bed mobility with the assist for hospital bed with 2 person assist today versus prior needing 3-4 persons to assist initially on eval M8 OT- IP Objective Assessments Start: 12/25/21 15:17 Freq: Status: Active Protocol: Document 12/25/21 16:39 [facility] (Rec: 12/25/21 17:15 [facility] [id number]) OT Gross Range of Motion Upper Extremity Range of Motion Assessment Left Impaired ROM Impairments LUE internally rotated at shoulder, elbow, wrist and fingers. However able to passively open his left fingers and get his elbow to 30 degrees short of extension. OT Strength Comments Strength Comments Pt unable to move his LUE and has tone and contractures. OT-Muscle Tone Assessment Muscle Tone WNL No M9 OT- IP Assessment and Plan Start: 12/25/21 15:17 Freq: Status: Active Protocol: Document 12/31/21 13:20 [facility] (Rec: 12/31/21 13:31 [facility] [id number]) OT Summary Assessment and Plan Potential Rehabilitation Potential Fair Analytic Complexity at Evaluation High Summary OT Impairments Range of Motion,Strength, Balance,Tone,Functional Mobility,Self-Feeding,Grooming ,Dressing,Toileting,Bathing, Toilet Transfers,Shower Transfers,Activity Tolerance Progress Towards Goals Progressing Toward Goals Assessment Summary Pt showing improvement with RLE movement and now able to extend his leg up while in supine for one minute at a time which will help for his independence with LB dressing needs while in his wc or recliner. Pt still would greatly benefit from SNF to maximize his independent with ADl and mobility needs. Pending his progress and PATRICA assist at home especially when pt can finally put weight on his RLE. Currently pt is NWB to RLE. Goals Self-Feeding Goal Standby Assistance Grooming Goal Standby Assistance Dressing Goal Moderate Assistance Toileting Goal Standby Assistance Bathing Goal Moderate Assistance Days to Meet Goals 58 Frequency of Treatment Frequency Of Treatment Once a Day Treatment Plan OT Treatment Plan ADL Training,Functional Mobility,Patient/Family Education,Discharge Planning Other Treatment Recommendations and Next Sitting balance after being Treatment Focus hoyered to recliner. Discharge Recommendations OT Discharge Recommendations SNF Rehab,[facility] Transportation Needs at Discharge Wheelchair/Cabulance
[2021-12-31] MEDS: TRAZODONE 50 MG TABLET PO (17:52)
[2021-12-31] MEDS: ONDANSETRON 4 MG ODT SL (20:15)
[2021-12-31] MEDS: ATORVASTATIN 20 MG TABLET PO (20:17)
[2022-01-01] VITALS: BP 151/62; PULSE 82; RESP 18; TEMP 36.6; O2SAT 95
[2022-01-01 05:00] VITALS: BP 144/63; PULSE 80; RESP 18; TEMP 36.6; O2SAT 95
[2022-01-01] MEDS: OXYCODONE IR 5 MG TABLET PO ×2 (05:33→11:41)
[2022-01-01 07:40] VITALS: BP 120/77; PULSE 78; RESP 16; TEMP 36.6; O2SAT 93
[2022-01-01] MEDS: carvediloL 12.5 MG TABLET 25 MG PO ×2 (08:49→20:51)
[2022-01-01] MEDS: DOCUSATE 100 MG CAPSULE 200 MG PO (08:49)
[2022-01-01] MEDS: GLIMEPIRIDE 2 MG TABLET PO (08:49)
[2022-01-01] MEDS: PANTOPRAZOLE DR 20 MG TABLET PO (08:49)
[2022-01-01] MEDS: ENOXAPARIN 40 MG/0.4 ML SYRINGE SUBCUT ×2 (08:49→20:50)
[2022-01-01] MEDS: INSULIN LISPRO 100 UNIT/ML 3ML VIAL SUBCUT ×4 (08:50→20:51)
[2022-01-01] MEDS: NYSTATIN CREAM 30 GM 1 APPLIC TOP ×2 (08:50→21:20)
--- NOTE | 2022-01-01 09:21 | OT.IP.TRT ---
Current Diagnoses Morbid (severe) obesity due to excess calories (12/28/21) Lymphedema, not elsewhere classified (12/28/21) Occupational Therapy Treatment Note M2 OT-IP Current Condition Start: 12/25/21 15:17 Freq: Status: Active Protocol: Document 12/25/21 16:39 [facility] (Rec: 12/25/21 17:15 [facility] [id number]) Occupational Therapy Current Condition Current Condition Evaluation Date 12/25/21 Treatment Diagnosis Right ankle trimalleolar fracture dislocation, decreased mobility Diagnosis Onset Date 12/25/21 Weight Bearing Status Weight Bearing Status Non-Weight Bearing Allowed Weight Bearing Amount (enter % NWB to RLE or #) (%) M3 OT- IP Subjective and Pain Start: 12/25/21 15:17 Freq: Status: Active Protocol: Document 01/01/22 08:58 [facility] (Rec: 01/01/22 11:46 [facility] [id number]) OT- Subjective Occupational Therapy Visit Type Type Treatment Note Visit Start Time 08:58 Visit Stop Time 09:21 Total Visit Minutes 23 Occupational Therapy Visit Comments Patient Comments Pt agreed to work with OT. Patient/Caregiver Goals TO be able to go home eventually. OT Pain Assessment Pain When Pain Assessed At Rest Pain Present Pain Present Denied Pain M4 OT- IP ADL's Start: 12/25/21 15:17 Freq: Status: Active Protocol: Document 01/01/22 08:58 [facility] (Rec: 01/01/22 11:46 [facility] [id number]) OT [id number]-Okzrjax General Evaluation Self-Feeding Ability Independent OT ADL-Grooming Comments OT Grooming Comments after set-up able to do OT ADL-Dressing Comments OT Dressing Comments Pt able to clarify that at home he has to stand up in order to get dressed. Prior on OT eval pt states gets dressed from his lift chair. Pt states able to use recreation therapist to get clothing over his feet and then able to stand with quad cane and pull up the clothes over his hips. Due to NWB to RLE unable to do and therefore pt will always require assist for his needs for dressing at this time until able to put weight on his RLE. OT ADL-Toileting Comments OT Toileting Comments Pt has been using the urinal in bed. M5 OT- IP IADL's Start: 12/25/21 15:17 Freq: Status: Active Protocol: Document 12/25/21 16:39 [facility] (Rec: 12/25/21 17:15 [facility] [id number]) OT-Instrumental Activities of Daily Living Medication Management Medication Management Comments Pt states did his own prior. Escalator Attendant Escalator Attendant Caregiver Provides Assist M6 OT- IP Functional Cognition Start: 12/25/21 15:17 Freq: Status: Active Protocol: Document 01/01/22 08:58 [facility] (Rec: 01/01/22 11:46 [facility] [id number]) Cognitive Factors Limiting Selfcare Function Cognitive Ability Level of Alertness Alert Patient Orientation Name,Age,Birthday,Month,Year, Place,Situation Attention Span Ability Capable of Focused Attention, Capable of Sustained Attention Ability to Follow Commands Able to Follow One Step Commands Memory Description Short Term Impaired Cognitive Tests SLUMS Pt scored 18/30 which implies possible dementia. Per pt only has an 8th grade education. Pt feels that he has a poor short term memory due to his cannabis use and history of CVA. Pt feels that he may have dementia. Pt able to recall 2/5 objects after time passed, not able to states 4 digit number backwards, not able to draw the hour hands correctly after time given, and able to answer 1/4 questions right after paragraph read. Cognitive Comments Cognitive Assessment Comments Pt able to answer all home safety questionairre accurately. Pt admit that he is forgetful or remembering to take his medications daily and at times forgets for hours. Pt states his sister assists with his finances. M8 OT- IP Objective Assessments Start: 12/25/21 15:17 Freq: Status: Active Protocol: Document 12/25/21 16:39 [facility] (Rec: 12/25/21 17:15 [facility] [id number]) OT Gross Range of Motion Upper Extremity Range of Motion Assessment Left Impaired ROM Impairments LUE internally rotated at shoulder, elbow, wrist and fingers. However able to passively open his left fingers and get his elbow to 30 degrees short of extension. OT Strength Comments Strength Comments Pt unable to move his LUE and has tone and contractures. OT-Muscle Tone Assessment Muscle Tone WNL No M9 OT- IP Assessment and Plan Start: 12/25/21 15:17 Freq: Status: Active Protocol: Document 01/01/22 08:58 [facility] (Rec: 01/01/22 11:54 [facility] [id number]) OT Summary Assessment and Plan Potential Rehabilitation Potential Poor/fair Analytic Complexity at Evaluation High Summary OT Impairments Range of Motion,Strength, Balance,Tone,Functional Mobility,Self-Feeding,Grooming ,Dressing,Toileting,Bathing, Toilet Transfers,Shower Transfers,Activity Tolerance Progress Towards Goals Slow Progress due to Medical Issues Assessment Summary Pt able to show progress with his ability to move RLE in the bed, however since pt is NWB to the RLE not able to transfer. In addition due to his NWB to RLE not able to stand to assist for LB dressing needs as he did prior and will now always need assist for all his ADl and mobility needs of michael at this time. Pt has been good to do LE exercises to help strength/ maintain so when able to put weight on his RLE in the future to maximize his independence. Pt scored 18/30 on the SLUMS which implies possible dementia. Pt states has an 8th grade education, feel that he is forgetful and feels that he has dementia. Pt due to NWB to RLE hard for pt to progress with therapy needs as needing assist for all needs. Therefore until pt is able to put weight on his RLE pt will need assist for all his ADl needs and use of michael for mobility needs. OT looking to discharge pt from OT needs as pt requiring assist for all needs and will not be able to do it himself until able to put weight on his RLE. To finalize LE exercises so able to maximize his independent when able to put weight on his RLE. Goals Self-Feeding Goal Standby Assistance Grooming Goal Standby Assistance Toileting Goal Standby Assistance Bathing Goal Moderate Assistance/MAXA Days to Meet Goals 58 Frequency of Treatment Frequency Of Treatment Once a Day Discharge Recommendations OT Discharge Recommendations SNF Rehab,[facility] Transportation Needs at Discharge Wheelchair/Cabulance
--- NOTE | 2022-01-01 09:21 | OT.IP.TRT ---
Current Diagnoses Morbid (severe) obesity due to excess calories (12/28/21) Lymphedema, not elsewhere classified (12/28/21) Occupational Therapy Treatment Note M2 OT-IP Current Condition Start: 12/25/21 15:17 Freq: Status: Active Protocol: Document 12/25/21 16:39 [facility] (Rec: 12/25/21 17:15 [facility] [id number]) Occupational Therapy Current Condition Current Condition Evaluation Date 12/25/21 Treatment Diagnosis Right ankle trimalleolar fracture dislocation, decreased mobility Diagnosis Onset Date 12/25/21 Weight Bearing Status Weight Bearing Status Non-Weight Bearing Allowed Weight Bearing Amount (enter % NWB to RLE or #) (%) M3 OT- IP Subjective and Pain Start: 12/25/21 15:17 Freq: Status: Active Protocol: Document 01/01/22 08:58 [facility] (Rec: 01/01/22 11:46 [facility] [id number]) OT- Subjective Occupational Therapy Visit Type Type Progress Note Visit Start Time 09:21 Visit Stop Time 09:45 Total Visit Minutes 24 Occupational Therapy Visit Comments Patient Comments Pt agreed to work with OT. Patient/Caregiver Goals TO be able to go home eventually. OT Pain Assessment Pain When Pain Assessed At Rest Pain Present Pain Present Denied Pain M4 OT- IP ADL's Start: 12/25/21 15:17 Freq: Status: Active Protocol: Document 01/01/22 08:58 [facility] (Rec: 01/01/22 11:46 [facility] [id number]) OT TQE-Vkpo-Jepxccs General Evaluation Self-Feeding Ability Independent OT ADL-Grooming Comments OT Grooming Comments after set-up able to do OT ADL-Dressing Comments OT Dressing Comments Pt able to clarify that at home he has to stand up in order to get dressed. Prior on OT eval pt states gets dressed from his lift chair. Pt states able to use sheet metal erector to get clothing over his feet and then able to stand with quad cane and pull up the clothes over his hips. Due to NWB to RLE unable to do and therefore pt will always require assist for his needs for dressing at this time until able to put weight on his RLE. OT ADL-Toileting Comments OT Toileting Comments Pt has been using the urinal in bed. M5 OT- IP IADL's Start: 12/25/21 15:17 Freq: Status: Active Protocol: Document 12/25/21 16:39 [facility] (Rec: 12/25/21 17:15 [facility] [id number]) OT-Instrumental Activities of Daily Living Medication Management Medication Management Comments Pt states did his own prior. Certified Nurse Operating Room Certified Nurse Operating Room Caregiver Provides Assist M6 OT- IP Functional Cognition Start: 12/25/21 15:17 Freq: Status: Active Protocol: Document 01/01/22 08:58 [facility] (Rec: 01/01/22 11:46 [facility] [id number]) Cognitive Factors Limiting Selfcare Function Cognitive Ability Level of Alertness Alert Patient Orientation Name,Age,Birthday,Month,Year, Place,Situation Attention Span Ability Capable of Focused Attention, Capable of Sustained Attention Ability to Follow Commands Able to Follow One Step Commands Memory Description Short Term Impaired Cognitive Tests SLUMS Pt scored 18/30 which implies possible dementia. Per pt only has an 8th grade education. Pt feels that he has a poor short term memory due to his cannibus use and history of CVA. Pt feels that he may have dementia. Pt able to recall 2/5 objects after time passed, not able to states 4 digit number backwards, not able to draw the hour hands corrects after time given, and able to answer 1/4 questions right after paragraph read. Cognitive Comments Cognitive Assessment Comments Pt able to answer all home safety questionairre accurately. Pt admit that he is forgetful or remembering to take his medications daily and at times forgets for hours. Pt states his sister assist with his finances. M8 OT- IP Objective Assessments Start: 12/25/21 15:17 Freq: Status: Active Protocol: Document 12/25/21 16:39 [facility] (Rec: 12/25/21 17:15 [facility] [id number]) OT Gross Range of Motion Upper Extremity Range of Motion Assessment Left Impaired ROM Impairments LUE internally rotated at shoulder, elbow, wrist and fingers. However able to passively open his left fingers and get his elbow to 30 degrees short of extension. OT Strength Comments Strength Comments Pt unable to move his LUE and has tone and contractures. OT-Muscle Tone Assessment Muscle Tone WNL No M9 OT- IP Assessment and Plan Start: 12/25/21 15:17 Freq: Status: Active Protocol: Document 01/01/22 08:58 [facility] (Rec: 01/01/22 11:54 [facility] [id number]) OT Summary Assessment and Plan Potential Rehabilitation Potential Poor Analytic Complexity at Evaluation High Summary OT Impairments Range of Motion,Strength, Balance,Tone,Functional Mobility,Self-Feeding,Grooming ,Dressing,Toileting,Bathing, Toilet Transfers,Shower Transfers,Activity Tolerance Progress Towards Goals Slow Progress due to Medical Issues Assessment Summary Pt able to show progress with his ability to move RLE in the bed, however since pt is NWB to the RLE not able to transfer. In addition due to his NWB to RLE not able to stand to assist for LB dressing needs as he did prior and will now always need assist for all his ADl and mobility needs of michael at this time. Pt has been good to do LE exercises to help strength/ maintain so when able to put weight on his RLE in the future to maximize his independence. Pt scored 18/30 on the SLUMS which implies possible dementia. Pt states has an 8th grade education, feel that he is forgetful and feels that he has dementia. Pt due to NWB to RLE hard for pt to progress with therapy needs as needing assist for all needs. Therefore until pt is able to put weight on his RLE pt will need assist for all his ADl needs and use of michael for mobility needs. Goals Self-Feeding Goal Standby Assistance Grooming Goal Standby Assistance Toileting Goal Standby Assistance Bathing Goal Moderate Assistance Days to Meet Goals 58 Frequency of Treatment Frequency Of Treatment Once a Day Discharge Recommendations OT Discharge Recommendations SNF Rehab,[facility] Transportation Needs at Discharge Wheelchair/Cabulance
[2022-01-01 09:26] VITALS: O2SAT 94
--- NOTE | 2022-01-01 14:36 | PM.PN.1 ---
Subjective Subjective Date Patient Seen: 01/01/22 Time Patient Seen: 08:00 Interval history: He has no new complaints. His pain is controlled. Exam Vital Signs (past 8 hours): - 01/01/22 07:40 01/01/22 09:26 Temperature 97.8 F Pulse Rate 78 Respiratory Rate 16 Blood Pressure 120/77 Pulse Oximetry 93 94 Oxygen Delivery Method Room Air Oxygen Flow Rate 0 Narrative Exam Narrative: General:? Alert, comfortable appearing Breathing nonlabored Chronic lymphedema in legs unchanged, has ankle splint on right side Objective Labs Result Diagrams: 12/28/21 13:20 12/28/21 13:20 [facility] Medical History Asthma Chronic acquired lymphedema HTN (hypertension) Hyperlipidemia Morbid obesity with body mass index (BMI) of 40.0 to 49.9 Obstructive sleep apnea (04/03/20) Family History Family/Other Obesity Hypertension Diabetes mellitus Heart disease Dementia Social History household members: none Smoking Status: Never smoker Assessment & Plan Assessment & Plan narrative: 61-year-old male admitted to the hospital with morbid obesity, type 2 DM, hypertension, asthma, obstructive sleep apnea, left hemiplegia secondary to history of stroke, who presents with a right ankle fracture/dislocation after a mechanical fall. 1. Right ankle fracture, non-operative -Patient has suffered a distal fibular fracture, and medial malleolar fracture which has been reduced and splinted -Given his significant morbid obesity he will be unable to transfer given the fracture right ankle -PT/OT on-board and appreciate their recommendations -Tylenol/oxycodone as needed -SNF rehab 2. Type 2 DM, adequately controlled -A1c 7.0, severe obesity -Insulin sliding scale -Glimepiride 2 mg q.d. per home routine -Continue patient's atorvastatin 3.? Severe obesity, BMI greater than 50 -This is clearly had a significant impact on his morbidity, as his obesity likely is the cause of the right ankle fracture which is resulting in his inability to move and pivot at this point. 4. Hypertension, chronic -Continue carvedilol 25 mg b.i.d., increased from home dosage 5.? Obstructive sleep apnea -Patient denies use of CPAP at home 6. Sacral decubitus ulcer, unstageable, resolved Given his significant obesity, and inability to move this is problematic as he is at high risk for further skin breakdown -Treated with daptomycin through December 28 for possible surrounding cellulitis 7. Elephantiasis, secondary to lymphedema -Chronic, continue his usual wound dressing. 8. Intertrigo, likely Lanie, affecting many folds -Continue with nystatin topical -Also on PO Diflucan 150 mg once weekly for 4 weeks (started December 25, 2021) 9. Asthma, likely made worse by copious marijuana use -Continue the albuterol inhaler, as needed 9. Insomnia -Continue home routine-takes 50 mg trazodone and 50 mg Benadryl at 6:00 p.m. and 50 mg Benadryl at midnight 10. Constipation -Psyllium husk b.i.d. per patient home routine -MiraLax daily, docusate 100 b.i.d. Dispo: patient is medically stable for discharge, pending dispo Time Spent With Patient Critical Care time: I spent a total of [] minutes of critical care time on this patient's care today; this time is exclusive of procedural time.
--- NOTE | 2022-01-01 15:03 | CM.DPC ---
DCP Cont: ZACK called previously faxed SNFs: [facility]- cannot accept pt as no care home care beds available and high care needs [facility]- at their limit for bariatric pts [facility]- too high of care needs [facility]- too high care needs [facility]- no appropriate bed, high care needs, daily [facility]- unable to accept to there facility due to marijuana daily use [facility] not able to accept [facility] [place]- does not have a bariatric beds so are not able to accept [facility]- reviewing right now and will let us know. dennison-[facility] checking on bed availability again today [facility]- bariatric is a barrier, but they have a contract with [facility]/Medicaid and will discuss if they can accept. Zahraa- left another msg today [facility]: left another msg today to see if they reviewed [facility]- reviewing, left msg again today [facility]- spoke to admissions, bariatric likely a barrier, but sent referral to [facility] for review. [facility]- left msg inquiring if they have reviewed. ZACK spoke to pt's PATRICA Salas [phone] and states she did call Dana Brand ([phone]) about [facility] [place] managed by [facility] but was told information needs to come from the hospital directly and Maritza states she is unclear how to access this program but states she was given the name Henrietta Maradiaga from [facility] ([phone]). ZACK called Dana Brand who confirms she manages Transitional [facility] and pt's referral needs to be sent from the hospital to [facility] and then they send referral to her if pt meets criteria and YES they have openings. ZACK called Henrietta Maradiaga [facility] who confirms she is the coordinator for the area for Transitional Care and confirmed PATRICA FERRIS should have transferred pt's case back to [facility] for placement and Henrietta is happy to call Maritza back to update her on the process for future situations and help walk her through it. Henrietta requests [facility] Intake Referral Expedited application be faxed in by ZACK to make sure the process is initiated and then she will be keeping an eye out and confirms pt's financially meets criteria for [facility] [place] but will need to review his medical. Henrietta also states they are contracted with [facility] and was surprised they have not accepted pt and SW updated that pt's bariatric status may be a barrier. She suggest SW call [facility] back and let them know Henrietta Maradiaga will likely be calling them. SW called [facility] admissions and updated on above and she confirms she is new to her role as well and will reach out to her team and update them on the contract and Henrietta Maradiaga contacting them to possibly accept pt while also attempting to see if pt can be accepted at [facility]. SW completed [facility] Expedited application and faxed it along with a few clinicals to [facility] for review towards placement. Plan: SW to follow closely tomorrow with [facility] to confirm they received the faxed application for placement and touch base with PATRICA FERRIS to confirm pt's case was re-assigned to [facility] and maybe Henrietta Maradiaga to determine [facility] vs [facility] if possible. Greta Myers MSW
--- NOTE | 2022-01-01 15:07 | DIET.CONS ---
Dietary Consultation Note Admission Date: 12/28/2021 09:55 Assessment: Following up with pt since assessment last week. Kitchen is out of Ray. He did have a couple days with it, but currently out of stock. Adequate PO x 100%. Denies having many snacks between meals, sometimes pudding. May benefit from additional protein, especially without Ray. Receiving 1-2u Lispro SSI and glimepiride 2mg daily. Recent BG 189-231 mg/dL. Rec keeping BG <180 especially for wound healing. CCD x 60g per meal. Ht: 175.26 cm Wt: 158 kg BMI: 51.4 Last BM: 12/31/21 (12/31/21 20:00) MNA: 13 Denis Score: 16 Diet: 12/25/21 Breakfast Carbohydrate Consistent Diet Diet Modifications: ray 2 x per day Carbohydrate level: Large (4 CHO) Bedtime snack: Yes Heart Healthy Diet Diet Modifications: Nutrition Percent Meal Consumed 100% 12/31/21 18:00 Percent Meal Consumed 100% 12/31/21 17:00 Percent Meal Consumed 100% 12/31/21 13:33 Percent Meal Consumed 100% 12/31/21 09:30 Percent Meal Consumed 100% 12/30/21 18:00 Percent Meal Consumed 100% 12/30/21 17:49 Labs: RBC 4.57 X10^6/uL (4.5-5.9) 12/28/21 13:20 Hgb 10.7 g/dL (13.5-17.5) L 12/28/21 13:20 Hct 33.3 % (41-53) L 12/28/21 13:20 Creatinine 1.05 mg/dL (0.66-1.25) 12/28/21 13:20 Hemoglobin A1c 7.0 % (4.0-6.0) H 12/25/21 05:04 Nutrition Diagnosis: Predicted inadequate vitamin c intake r/t increased needs for healing aeb diet recall and ulcers; Increased protein needs r/t wound healing aeb current sacral decubitus ulcer and only having protein at meals. Interventions: 1. Currently out of Ray. Will reinstate once restocked. 2. Fruit with each meal within carb allotment to support vitamin c needs for wounds. 3. Encouraged choosing protein for snacks, ie cheese stick or peanut butter with fruit, to support protein needs. We can send glucerna if needed, but best if he can get protein via food and hopefully AA from Ray once restocked. 4. May benefit from adjusting insulin per hyperglycemia to support wound healing. Monitoring/Evaluations: consult prn Electronically Signed by: Kaya Pantoja 01/01/22 15:07 Clinical Dietitian [address] [address]
[2022-01-01] MEDS: ONDANSETRON 4 MG ODT SL (15:11)
[2022-01-01] MEDS: TRAZODONE 50 MG TABLET PO (16:59)
[2022-01-01] MEDS: diphenhydrAMINE 25 MG TABLET 50 MG PO ×2 (16:59→23:49)
[2022-01-01 20:00] VITALS: BP 139/69; PULSE 86; RESP 18; TEMP 36.6; O2SAT 96
[2022-01-01 20:51] VITALS: BP 139/69; PULSE 86
[2022-01-01] MEDS: ATORVASTATIN 20 MG TABLET PO (20:51)
[2022-01-01] MEDS: SODIUM CHLORIDE 0.9% FLUSH 10 ML IV (20:52)
[2022-01-01] MEDS: ACETAMINOPHEN 325 MG TABLET 650 MG PO (21:08)
[2022-01-02] VITALS (7 sets, daily range): BP systolic 124–138; BP diastolic 57–74; PULSE 79–82; RESP 16; TEMP 35.8–35.9; O2SAT 93–95
[2022-01-02] MEDS: OXYCODONE IR 5 MG TABLET PO ×3 (02:44→20:39)
[2022-01-02] MEDS: NYSTATIN CREAM 30 GM 1 APPLIC TOP ×2 (09:50→20:40)
[2022-01-02] MEDS: INSULIN LISPRO 100 UNIT/ML 3ML VIAL SUBCUT ×4 (09:51→20:43)
[2022-01-02] MEDS: PANTOPRAZOLE DR 20 MG TABLET PO (09:55)
[2022-01-02] MEDS: ENOXAPARIN 40 MG/0.4 ML SYRINGE SUBCUT ×2 (09:55→20:36)
[2022-01-02] MEDS: GLIMEPIRIDE 2 MG TABLET PO (09:55)
[2022-01-02] MEDS: DOCUSATE 100 MG CAPSULE 200 MG PO (09:55)
[2022-01-02] MEDS: carvediloL 12.5 MG TABLET 25 MG PO ×2 (09:55→20:37)
[2022-01-02] MEDS: TRIAMCINOLONE 0.025% CREAM 1 APPLIC TOP (10:00)
--- NOTE | 2022-01-02 13:20 | OT.IP.TRT ---
Current Diagnoses Morbid (severe) obesity due to excess calories (12/28/21) Lymphedema, not elsewhere classified (12/28/21) Occupational Therapy Treatment Note M2 OT-IP Current Condition Start: 12/25/21 15:17 Freq: Status: Active Protocol: Document 12/25/21 16:39 [facility] (Rec: 12/25/21 17:15 [facility] [id number]) Occupational Therapy Current Condition Current Condition Evaluation Date 12/25/21 Treatment Diagnosis Right ankle trimalleolar fracture dislocation, decreased mobility Diagnosis Onset Date 12/25/21 Weight Bearing Status Weight Bearing Status Non-Weight Bearing Allowed Weight Bearing Amount (enter % NWB to RLE or #) (%) M3 OT- IP Subjective and Pain Start: 12/25/21 15:17 Freq: Status: Active Protocol: Document 01/02/22 13:18 [facility] (Rec: 01/02/22 13:26 [facility] [id number]) OT- Subjective Occupational Therapy Visit Type Type Treatment Note Visit Start Time 13:00 Visit Stop Time 13:09 Total Visit Minutes 9 Occupational Therapy Visit Comments Patient Comments Pt agreed finalize exercises while in bed to help with his LB dressing needs when able to progress from NWB to RLE. Patient/Caregiver Goals TO be able to go home eventually. OT Pain Assessment Pain When Pain Assessed At Rest Pain Present Pain Present Pain Reported Location Back Scale Used did not rate Management Techniques Re-positioning M4 OT- IP ADL's Start: 12/25/21 15:17 Freq: Status: Active Protocol: Document 01/01/22 08:58 [facility] (Rec: 01/01/22 11:46 [facility] [id number]) OT VCP-Yhal-Dedmvix General Evaluation Self-Feeding Ability Independent OT ADL-Grooming Comments OT Grooming Comments after set-up able to do OT ADL-Dressing Comments OT Dressing Comments Pt able to clarify that at home he has to stand up in order to get dressed. Prior on OT eval pt states gets dressed from his lift chair. Pt states able to use grave digger to get clothing over his feet and then able to stand with quad cane and pull up the clothes over his hips. Due to NWB to RLE unable to do and therefore pt will always require assist for his needs for dressing at this time until able to put weight on his RLE. OT ADL-Toileting Comments OT Toileting Comments Pt has been using the urinal in bed. M5 OT- IP IADL's Start: 12/25/21 15:17 Freq: Status: Active Protocol: Document 12/25/21 16:39 [facility] (Rec: 12/25/21 17:15 [facility] [id number]) OT-Instrumental Activities of Daily Living Medication Management Medication Management Comments Pt states did his own prior. Flake Or Shred Roll Operator Flake Or Shred Roll Operator Caregiver Provides Assist M6 OT- IP Functional Cognition Start: 12/25/21 15:17 Freq: Status: Active Protocol: Document 01/02/22 13:18 [facility] (Rec: 01/02/22 13:26 [facility] [id number]) Cognitive Factors Limiting Selfcare Function Cognitive Comments Cognitive Assessment Comments Pt realizes it would be best for him to continue to work on his RLE exercises in bed to help maintain his RLE strength so when able to change from NWB status able to do more for himself for ADl needs. Pt able to let therapist know of wording to write down for his exercises in bed. At this time pt not wanting any RUE exercises as currently has been only able to use his RUE to assist his needs. Pt does realize that it if not safe for him to go home and but is hopeful to get home eventually . M8 OT- IP Objective Assessments Start: 12/25/21 15:17 Freq: Status: Active Protocol: Document 12/25/21 16:39 [facility] (Rec: 12/25/21 17:15 [facility] [id number]) OT Gross Range of Motion Upper Extremity Range of Motion Assessment Left Impaired ROM Impairments LUE internally rotated at shoulder, elbow, wrist and fingers. However able to passively open his left fingers and get his elbow to 30 degrees short of extension. OT Strength Comments Strength Comments Pt unable to move his LUE and has tone and contractures. OT-Muscle Tone Assessment Muscle Tone WNL No M9 OT- IP Assessment and Plan Start: 12/25/21 15:17 Freq: Status: Active Protocol: Document 01/02/22 13:18 [facility] (Rec: 01/02/22 13:26 [facility] [id number]) OT Summary Assessment and Plan Potential Rehabilitation Potential Poor Analytic Complexity at Evaluation High Summary OT Impairments Range of Motion,Strength, Balance,Tone,Functional Mobility,Self-Feeding,Grooming ,Dressing,Toileting,Bathing, Toilet Transfers,Shower Transfers,Activity Tolerance Progress Towards Goals Slow Progress due to Medical Issues Assessment Summary Pt able to recall RLE exercises to do in bed to help maintain his muscles so when able to be cleared to put weight on his RLE will hopefully not needs as much assist. At this time pt is extensive two person assist and use of hospital bed to assist for all mobility needs and use of michael lift to get out of bed. Frequency of Treatment Frequency Of Treatment Discharge Discharge Recommendations OT Discharge Recommendations SNF Rehab,[facility]
[2022-01-02] MEDS: HYDROCORTISONE 1% OINT 28 GM 1 APPLIC TOP (14:41)
--- NOTE | 2022-01-02 14:43 | PM.PN.1 ---
Subjective Subjective Date Patient Seen: 01/02/22 Time Patient Seen: 08:00 Interval history: He has no new complaints. Exam Vital Signs (past 8 hours): - 01/02/22 07:45 01/02/22 11:29 Temperature 96.5 F L Pulse Rate 82 Respiratory Rate 16 Blood Pressure 138/74 Pulse Oximetry 95 93 Oxygen Delivery Method Room Air Oxygen Flow Rate 0 Narrative Exam Narrative: General:? Alert, comfortable appearing Breathing nonlabored Chronic lymphedema in legs unchanged, has ankle splint on right side Objective Labs Result Diagrams: 12/28/21 13:20 12/28/21 13:20 [facility] Medical History Asthma Chronic acquired lymphedema HTN (hypertension) Hyperlipidemia Morbid obesity with body mass index (BMI) of 40.0 to 49.9 Obstructive sleep apnea (04/03/20) Family History Family/Other Obesity Hypertension Diabetes mellitus Heart disease Dementia Social History household members: none Smoking Status: Never smoker Assessment & Plan Assessment & Plan narrative: 61-year-old male admitted to the hospital with morbid obesity, type 2 DM, hypertension, asthma, obstructive sleep apnea, left hemiplegia secondary to history of stroke, who presents with a right ankle fracture/dislocation after a mechanical fall. 1. Right ankle fracture, non-operative -Patient has suffered a distal fibular fracture, and medial malleolar fracture which has been reduced and splinted -Given his significant morbid obesity he will be unable to transfer given the fracture right ankle -PT/OT on-board and appreciate their recommendations -Tylenol/oxycodone as needed -SNF rehab 2. Type 2 DM, adequately controlled -A1c 7.0, severe obesity -Insulin sliding scale -Glimepiride 2 mg q.d. per home routine -Continue patient's atorvastatin 3.? Severe obesity, BMI greater than 50 -This is clearly had a significant impact on his morbidity, as his obesity likely is the cause of the right ankle fracture which is resulting in his inability to move and pivot at this point. 4. Hypertension, chronic -Continue carvedilol 25 mg b.i.d., increased from home dosage 5.? Obstructive sleep apnea -Patient denies use of CPAP at home 6. Sacral decubitus ulcer, unstageable, resolved Given his significant obesity, and inability to move this is problematic as he is at high risk for further skin breakdown -Treated with daptomycin through December 28 for possible surrounding cellulitis 7. Elephantiasis, secondary to lymphedema -Chronic, continue his usual wound dressing. 8. Intertrigo, likely Lanie, affecting many folds -Continue with nystatin topical -Also on PO Diflucan 150 mg once weekly for 4 weeks (started December 25, 2021) 9. Asthma, likely made worse by copious marijuana use -Continue the albuterol inhaler, as needed 9. Insomnia -Continue home routine-takes 50 mg trazodone and 50 mg Benadryl at 6:00 p.m. and 50 mg Benadryl at midnight 10. Constipation -Psyllium husk b.i.d. per patient home routine -MiraLax daily, docusate 100 b.i.d. Dispo: patient is medically stable for discharge, pending dispo Time Spent With Patient Critical Care time: I spent a total of [] minutes of critical care time on this patient's care today; this time is exclusive of procedural time.
--- NOTE | 2022-01-02 15:12 | CM.DPC ---
Addendum entered by Vanna Pugh R.N. 01/02/22 16:08: Left a message with Marily at [facility] and asked her to reconsider. In the message, let her know that patient is inpatient under his Medicare, and has case workers with [facility] working on [place] [facility] [place] caregivers. Patient's sister, Aysha, called with update. Let her know that rehabilitation case coordinator does not normally updated, since patient can make his own decisions. Sister initially asked for Greta. Sister is already aware, that [facility] [place] may consider. This [place] Wildlife Conservation Officer did not give her this information. Sister is aware that care management is looking for placement for patient. Patient has given permission for sister to be contacted. Original Note: DCP Cont: Called [facility] in [place], they declined patient now due to not having bariatric bed. Called [facility]. Sending the referral over to them. They will review. Arti has declined. Spoke to Henrietta Maradiaga at [facility]. Updated her. Confirmed with her that [facility] [place] can't accept the referral unless it's from [facility], and Dana Brand is out until Thursday. She indicated that information was sent to her. This [place] Wildlife Conservation Officer can call her Thursday to follow up. Henrietta also added that she had been in contact with [facility], and they were going to offer an incentive program. The last conversation that this program services planner had with Marily at [facility], was that they could do short term rehab, but not [place] [facility] [place]. May follow up with them today as well. P: DCP to continue to follow. Will follow up with [facility] of [facility] and [facility]. Katie is faxing [place] referral today. Vanna Pugh RN/Continuum Of Care Manager
--- NOTE | 2022-01-02 17:33 | PC.NURSE ---
Day shift: Dr Branch informed of Pt's request for gas and feeling bloated.
[2022-01-02] MEDS: diphenhydrAMINE 25 MG TABLET 50 MG PO (20:37)
[2022-01-02] MEDS: TRAZODONE 50 MG TABLET PO (20:39)
[2022-01-02] MEDS: ATORVASTATIN 20 MG TABLET PO (20:39)
[2022-01-03] MEDS: ACETAMINOPHEN 325 MG TABLET 650 MG PO (04:26)
[2022-01-03] MEDS: NYSTATIN CREAM 30 GM 1 APPLIC TOP ×2 (04:29→20:38)
[2022-01-03 09:00] VITALS: BP 118/63; PULSE 80; RESP 18; TEMP 36; O2SAT 92
[2022-01-03 09:22] VITALS: O2SAT 94
[2022-01-03] MEDS: PANTOPRAZOLE DR 20 MG TABLET PO (09:54)
[2022-01-03] MEDS: GLIMEPIRIDE 2 MG TABLET PO (09:55)
[2022-01-03] MEDS: OXYCODONE IR 5 MG TABLET PO ×2 (09:55→17:25)
[2022-01-03] MEDS: DOCUSATE 100 MG CAPSULE 200 MG PO (09:55)
[2022-01-03] MEDS: ENOXAPARIN 40 MG/0.4 ML SYRINGE SUBCUT ×2 (09:55→20:36)
[2022-01-03] MEDS: carvediloL 12.5 MG TABLET 25 MG PO ×2 (09:55→20:37)
[2022-01-03] MEDS: INSULIN LISPRO 100 UNIT/ML 3ML VIAL SUBCUT ×4 (09:56→20:42)
--- NOTE | 2022-01-03 12:56 | CM.DPC ---
Addendum entered by Vanna Pugh R.N. 01/03/22 13:37: DCP Cont: Attempted: [facility] in [place]: No beds [place]: No beds [facility] [place]: message left. Patient spoke to Dr. Celis, thinking that he may have been accepted at [facility] [place]. Let hospitalist know, that this DC supply chain planner has left messages with them, and admissions should be back in their office tomorrow, and will follow up. Original Note: DCP Cont: Confirmed with P.T. that they have discharged patient, he is unable to work with P.T, he is non-weight bearing on affected ankle, and now, is non-weight bearing on the other side due to weakness. [facility] facilities[facility], he has burned his bridges. [facility]: Left a message with Lilliana, letting her know that he is not currently using Marijuana. Erum at [facility]: Left a message with admissions. [facility]: Left a message with admissions. [facility]: Has ELIGWYN abdalla [facility]: No beds [facility]: No Bariatric Beds. Left a message with patient's PATRICA case filler, Maritza, regarding status and difficulty placing patient. Left a message with Henrietta King at [facility] as well, letting her know that [facility] has declined, and multiple facilities have been attempted. Attempted to reach out to [facility] [place], Dana Brand, but her voice mail is full. According to Henrietta King, she indicated yesterday that Dana may be in her office tomorrow, Thursday. P: DCP to continue to work on placement for patient. He is currently non-weight bearing. If he were to go home, hali wilkinson would be needed with round the clock caregivers, but unsure if this would be possible, and the time frame. Have a message out to his PATRICA Print Line Inspector, Maritza, and Henrietta King, [facility]. Vanna Pugh RN/Print Line Inspector
[2022-01-03 14:53] VITALS: O2SAT 94
--- NOTE | 2022-01-03 14:57 | P.PN_ITS ---
Subjective Subjective Date Patient Seen: 01/03/22 Time Patient Seen: 14:57 Interval history: He has no new complaints. Exam Vital Signs (past 8 hours): - 01/03/22 09:00 01/03/22 09:22 01/03/22 14:53 Temperature 96.8 F L Pulse Rate 80 Respiratory Rate 18 Blood Pressure 118/63 Pulse Oximetry 92 94 94 Oxygen Delivery Method Room Air Oxygen Flow Rate 0 Narrative Exam Narrative: General:? Alert, comfortable appearing Breathing nonlabored Chronic lymphedema in legs unchanged, has ankle splint on right side Objective Labs Result Diagrams: 12/28/21 13:20 12/28/21 13:20 [facility] Medical History Asthma Chronic acquired lymphedema HTN (hypertension) Hyperlipidemia Morbid obesity with body mass index (BMI) of 40.0 to 49.9 Obstructive sleep apnea (04/03/20) Family History Family/Other Obesity Hypertension Diabetes mellitus Heart disease Dementia Social History household members: none Smoking Status: Never smoker Assessment & Plan Assessment & Plan narrative: 61-year-old male admitted to the hospital with morbid obesity, type 2 DM, hypertension, asthma, obstructive sleep apnea, left hemiplegia secondary to history of stroke, who presents with a right ankle fracture/dislocation after a mechanical fall. 1. Right ankle fracture, non-operative -Patient has suffered a distal fibular fracture, and medial malleolar fracture which has been reduced and splinted -Given his significant morbid obesity he will be unable to transfer given the fracture right ankle -PT/OT on-board and appreciate their recommendations -Tylenol/oxycodone as needed -SNF rehab 2. Type 2 DM, adequately controlled -A1c 7.0, severe obesity -Insulin sliding scale -Glimepiride 2 mg q.d. per home routine -Continue patient's atorvastatin 3.? Severe obesity, BMI greater than 50 -This is clearly had a significant impact on his morbidity, as his obesity like ly is the cause of the right ankle fracture which is resulting in his inability to move and pivot at this point. 4. Hypertension, chronic -Continue carvedilol 25 mg b.i.d., increased from home dosage 5.? Obstructive sleep apnea -Patient denies use of CPAP at home 6. Sacral decubitus ulcer, unstageable, resolved Given his significant obesity, and inability to move this is problematic as he is at high risk for further skin breakdown -Treated with daptomycin through December 28 for possible surrounding cellulitis 7. Elephantiasis, secondary to lymphedema -Chronic, continue his usual wound dressing. 8. Intertrigo, likely Lanie, affecting many folds -Continue with nystatin topical -Also on PO Diflucan 150 mg once weekly for 4 weeks (started December 25, 2021) 9. Asthma, likely made worse by copious marijuana use -Continue the albuterol inhaler, as needed 9. Insomnia -Continue home routine-takes 50 mg trazodone and 50 mg Benadryl at 6:00 p.m. and 50 mg Benadryl at midnight 10. Constipation -Psyllium husk b.i.d. per patient home routine -MiraLax daily, docusate 100 b.i.d. Dispo: patient is medically stable for discharge, pending dispo Time Spent With Patient Critical Care time: I spent a total of [] minutes of critical care time on this patient's care today; this time is exclusive of procedural time.
[2022-01-03 19:30] VITALS: PULSE 80; RESP 18; O2SAT 94
[2022-01-03] MEDS: ATORVASTATIN 20 MG TABLET PO (20:37)
[2022-01-03] MEDS: TRAZODONE 50 MG TABLET PO (20:37)
[2022-01-03] MEDS: diphenhydrAMINE 25 MG TABLET 50 MG PO ×2 (20:37)
[2022-01-03] MEDS: SODIUM CHLORIDE 0.9% FLUSH 10 ML IV (20:37)
[2022-01-03 22:00] VITALS: RESP 18
[2022-01-04] MEDS: diphenhydrAMINE 25 MG TABLET 50 MG PO ×3 (00:05→23:41)
[2022-01-04] MEDS: OXYCODONE IR 5 MG TABLET PO ×4 (00:05→23:42)
--- NOTE | 2022-01-04 05:39 | PC.NURSE ---
DAIRY CATTLE FARMER note: refused vitals. Wanted to sleep.
[2022-01-04 07:35] VITALS: BP 118/54; PULSE 77; RESP 17; TEMP 35.7; O2SAT 94
[2022-01-04] MEDS: NYSTATIN CREAM 30 GM 1 APPLIC TOP (08:08)
[2022-01-04] MEDS: INSULIN LISPRO 100 UNIT/ML 3ML VIAL SUBCUT ×3 (08:21→17:23)
[2022-01-04 09:09] VITALS: O2SAT 95
[2022-01-04] MEDS: ENOXAPARIN 40 MG/0.4 ML SYRINGE SUBCUT ×2 (09:38→20:41)
[2022-01-04 09:39] VITALS: BP 118/54; PULSE 77
[2022-01-04] MEDS: carvediloL 12.5 MG TABLET 25 MG PO ×2 (09:39→20:40)
[2022-01-04] MEDS: DOCUSATE 100 MG CAPSULE 200 MG PO (09:39)
[2022-01-04] MEDS: GLIMEPIRIDE 2 MG TABLET 4 MG PO (09:43)
[2022-01-04] MEDS: PANTOPRAZOLE DR 20 MG TABLET PO (09:44)
[2022-01-04] MEDS: FLUCONAZOLE 100 MG TABLET 150 MG PO (10:42)
--- NOTE | 2022-01-04 10:59 | PC.NURSE ---
Pt alert and oriented. Able to make needs know. Offers no overt complaints. Nystatin applied to back per Pt request. Pt having b'fast, watching TV.
--- NOTE | 2022-01-04 11:56 | CM.DPC ---
DCP Cont: Attempted to call Dana Brand, she is the director of rooms at [facility] [place]. The number listed is: [phone], attempted this number yesterday, and today, and voice mail is full. Called the main number and they gave an additional number of: [phone]. Called this number, and Dana Brand answered on this voice mail, and was able to leave her a message. In the message, mentioned that this patient is medically stable, with the understanding that she is working with [facility], Henrietta Maradiaga. Gave her this DC Wallboard Worker phone number as well and inquired upon the status as to if they can accept patient and when. Spoke to Ann Marie at [facility], for she is working for [facility] this week-end. Confirmed that she does have referral, and gave it to her hospital nursing assistant to review. He most likely would need to go over on his Medicare. Did let her know that patient does have a home plan, but that his PATRICA clinical case manager is working on increasing his hours. Ann Marie will update care management upon decision, but they don't admit on week-ends, most likely will not know until Thursday. P: DCP to continue to work on placement. Previous notes from this DC Wallboard Worker show which facilities have been attempted. Did leave Lilliana flores [facility] a message, her concerns were his Marijuana use. All facilities in this area have declined. Have left messages with some faciities in the [place] and [place] facilities as well. Vanna Pugh RN/Elastic Yarn Twister Helper
--- NOTE | 2022-01-04 15:03 | PM.PN.1 ---
Subjective Subjective Date Patient Seen: 01/04/22 Time Patient Seen: 15:03 Interval history: He has no new complaints. Exam Vital Signs (past 8 hours): - 01/04/22 07:35 01/04/22 09:09 01/04/22 09:39 Temperature 96.3 F L Pulse Rate 77 77 Respiratory Rate 17 Blood Pressure 118/54 L 118/54 L Pulse Oximetry 94 95 Oxygen Delivery Method Room Air Oxygen Flow Rate 0 Narrative Exam Narrative: General:? Alert, comfortable appearing Breathing nonlabored Chronic lymphedema in legs unchanged, has ankle splint on right side Objective Labs Result Diagrams: 12/28/21 13:20 12/28/21 13:20 [facility] Medical History Asthma Chronic acquired lymphedema HTN (hypertension) Hyperlipidemia Morbid obesity with body mass index (BMI) of 40.0 to 49.9 Obstructive sleep apnea (04/03/20) Family History Family/Other Obesity Hypertension Diabetes mellitus Heart disease Dementia Social History household members: none Smoking Status: Never smoker Assessment & Plan Assessment & Plan narrative: 61-year-old male admitted to the hospital with morbid obesity, type 2 DM, hypertension, asthma, obstructive sleep apnea, left hemiplegia secondary to history of stroke, who presents with a right ankle fracture/dislocation after a mechanical fall. 1. Right ankle fracture, non-operative -Patient has suffered a distal fibular fracture, and medial malleolar fracture which has been reduced and splinted -Given his significant morbid obesity he will be unable to transfer given the fracture right ankle -PT/OT on-board and appreciate their recommendations -Tylenol/oxycodone as needed -SNF rehab 2. Type 2 DM, adequately controlled -A1c 7.0, severe obesity -Insulin sliding scale -Glimepiride 2 mg q.d. per home routine -Continue patient's atorvastatin 3.? Severe obesity, BMI greater than 50 -This is clearly had a significant impact on his morbidity, as his obesity likely is the cause of the right ankle fracture which is resulting in his inability to move and pivot at this point. 4. Hypertension, chronic -Continue carvedilol 25 mg b.i.d., increased from home dosage 5.? Obstructive sleep apnea -Patient denies use of CPAP at home 6. Sacral decubitus ulcer, unstageable, resolved Given his significant obesity, and inability to move this is problematic as he is at high risk for further skin breakdown -Treated with daptomycin through December 28 for possible surrounding cellulitis 7. Elephantiasis, secondary to lymphedema -Chronic, continue his usual wound dressing. 8. Intertrigo, likely Lanie, affecting many folds -Continue with nystatin topical -Also on PO Diflucan 150 mg once weekly for 4 weeks (started December 25, 2021) 9. Asthma, likely made worse by copious marijuana use -Continue the albuterol inhaler, as needed 9. Insomnia -Continue home routine-takes 50 mg trazodone and 50 mg Benadryl at 6:00 p.m. and 50 mg Benadryl at midnight 10. Constipation -Psyllium husk b.i.d. per patient home routine -MiraLax daily, docusate 100 b.i.d. Dispo: patient is medically stable for discharge, pending dispo Time Spent With Patient Critical Care time: I spent a total of [] minutes of critical care time on this patient's care today; this time is exclusive of procedural time.
[2022-01-04 19:50] VITALS: BP 151/76; PULSE 76; PULSE 77; RESP 16; RESP 18; TEMP 36.2; O2SAT 94; O2SAT 95
[2022-01-04 20:40] VITALS: BP 151/76; PULSE 76
[2022-01-04] MEDS: TRAZODONE 50 MG TABLET PO (20:40)
[2022-01-04] MEDS: PSYLLIUM HUSK 1 PACKET PO (20:41)
--- NOTE | 2022-01-05 06:30 | PC.NURSE ---
Pt slept on and off tonight, pt requesting to be woken up for medications, that he would call the staff when he needed anything. levothyroxine not given this am (pt refused, he states he no longer takes it). Pt c/o itching to his right lower back and right abdominal fold, pt needing assistance with scratching. Pt using the urinal to void. Pt refusing to turn in bed and not letting the staff use the michael lift to help with mobility.
[2022-01-05 07:00] VITALS: BP 129/84; PULSE 73; RESP 18; TEMP 36.4; O2SAT 95
[2022-01-05 08:16] VITALS: O2SAT 95
[2022-01-05] MEDS: INSULIN LISPRO 100 UNIT/ML 3ML VIAL SUBCUT ×3 (08:43→17:21)
[2022-01-05] MEDS: carvediloL 12.5 MG TABLET 25 MG PO ×2 (08:48→21:14)
[2022-01-05] MEDS: PANTOPRAZOLE DR 20 MG TABLET PO (08:48)
[2022-01-05] MEDS: GLIMEPIRIDE 2 MG TABLET 4 MG PO (08:48)
[2022-01-05] MEDS: DOCUSATE 100 MG CAPSULE 200 MG PO (08:49)
[2022-01-05] MEDS: ENOXAPARIN 40 MG/0.4 ML SYRINGE SUBCUT ×2 (08:49→21:13)
[2022-01-05] MEDS: polyethylene glycoL 3350 17 GM POWD.PACK PO (08:50)
[2022-01-05] MEDS: OXYCODONE IR 5 MG TABLET PO ×2 (08:54→21:15)
[2022-01-05] MEDS: ACETAMINOPHEN 325 MG TABLET 650 MG PO ×2 (08:55→23:25)
--- NOTE | 2022-01-05 11:39 | PM.PN.1 ---
Subjective Subjective Date Patient Seen: 01/05/22 Time Patient Seen: 11:40 Interval history: Has increased burping and gas discomfort, no overt pain. requesting some simethicone. No fever, chills, nausea, or vomiting. Exam Vital Signs (past 8 hours): - 01/05/22 07:00 01/05/22 08:16 Temperature 97.6 F Pulse Rate 73 Respiratory Rate 18 Blood Pressure 129/84 Pulse Oximetry 95 95 Oxygen Delivery Method Room Air Oxygen Flow Rate 0 Narrative Exam Narrative: General:? Alert, comfortable appearing Breathing nonlabored Chronic lymphedema in legs unchanged, has ankle splint on right side Objective Labs Result Diagrams: 12/28/21 13:20 12/28/21 13:20 [facility] Medical History Asthma Chronic acquired lymphedema HTN (hypertension) Hyperlipidemia Morbid obesity with body mass index (BMI) of 40.0 to 49.9 Obstructive sleep apnea (04/03/20) Family History Family/Other Obesity Hypertension Diabetes mellitus Heart disease Dementia Social History household members: none Smoking Status: Never smoker Assessment & Plan Assessment & Plan narrative: 61-year-old male admitted to the hospital with morbid obesity, type 2 DM, hypertension, asthma, obstructive sleep apnea, left hemiplegia secondary to history of stroke, who presents with a right ankle fracture/dislocation after a mechanical fall. 1. Right ankle fracture, non-operative -Patient has suffered a distal fibular fracture, and medial malleolar fracture which has been reduced and splinted -Given his significant morbid obesity he will be unable to transfer given the fracture right ankle -PT/OT on-board and appreciate their recommendations -Tylenol/oxycodone as needed -SNF rehab 2. Type 2 DM, adequately controlled -A1c 7.0, severe obesity -Insulin sliding scale -Glimepiride 2 mg q.d. per home routine -Continue patient's atorvastatin 3.? Severe obesity, BMI greater than 50 -This is clearly had a significant impact on his morbidity, as his obesity likely is the cause of the right ankle fracture which is resulting in his inability to move and pivot at this point. 4. Hypertension, chronic -Continue carvedilol 25 mg b.i.d., increased from home dosage 5.? Obstructive sleep apnea -Patient denies use of CPAP at home 6. Sacral decubitus ulcer, unstageable, resolved Given his significant obesity, and inability to move this is problematic as he is at high risk for further skin breakdown -Treated with daptomycin through December 28 for possible surrounding cellulitis 7. Elephantiasis, secondary to lymphedema -Chronic, continue his usual wound dressing. 8. Intertrigo, likely Lanie, affecting many folds -Continue with nystatin topical -Also on PO Diflucan 150 mg once weekly for 4 weeks (started December 25, 2021) 9. Asthma, likely made worse by copious marijuana use -Continue the albuterol inhaler, as needed 9. Insomnia -Continue home routine-takes 50 mg trazodone and 50 mg Benadryl at 6:00 p.m. and 50 mg Benadryl at midnight 10. Constipation -Psyllium husk b.i.d. per patient home routine -MiraLax daily, docusate 100 b.i.d. Dispo: patient is medically stable for discharge, pending dispo Time Spent With Patient Critical Care time: I spent a total of [] minutes of critical care time on this patient's care today; this time is exclusive of procedural time.
[2022-01-05] MEDS: SIMETHICONE 80 MG TABLET PO ×2 (12:55→21:20)
--- NOTE | 2022-01-05 13:15 | CM.DPC ---
DCP Cont: Continue to attempt placement for patient. Called and left another message for Dana Brand at [phone], since her other number's voice mail is full. Asked her to call case management back regarding the possibility of patient going to [facility] in [place]. Left Henrietta King, the [facility] director to see if she has been in contact with Dana, since [facility] sends them the application. Left a message with Maritza at [facility] since she is patient's PATRICA Medical Transcription Editor, and the last notation stated that she was working on increasing his home caregiving hours. In the message, let her know that patient is full assist with hoier,and would need round the clock caregivers, if home is a possibility. But is is also noted that a hoier lift would not fit into the home. Patient can't use his upper body to transfer due to one sided weakness, and is non-weight bearing as well. P.T. is not able to work with him, for goals can't be set. This DCP left a message with [facility] to see if they have any Medicaid beds. Attempted [facility] in [place] to see if they have Medicaid beds, but Nani, cognos administrator is not in the office today, and does not have a voice mail. [facility] has attempted following facilities: [facility]: Will not accept Nevaeh [facility]: Left a message with Lillaina letting her know that patient is not using Marijuana [facility] at [facility]: Left a message with admittions. [facility]: Left a message with admissions [facility]: Has [facility]: No Bariatric Beds. P: DCP to continue to work on plan and reach out Thursday to [facility] and [facility]. Vanna Pugh, RN/Medical Transcription Editor
[2022-01-05 19:30] VITALS: PULSE 73; RESP 20; O2SAT 95
[2022-01-05 20:30] VITALS: BP 126/67; PULSE 72; RESP 20; TEMP 36.6; O2SAT 94
[2022-01-05] MEDS: diphenhydrAMINE 25 MG TABLET 50 MG PO ×2 (21:12→23:22)
[2022-01-05 21:14] VITALS: BP 126/67; PULSE 72
[2022-01-05] MEDS: ATORVASTATIN 20 MG TABLET PO (21:14)
[2022-01-05] MEDS: TRAZODONE 50 MG TABLET PO (21:15)
[2022-01-06] VITALS (7 sets, daily range): BP systolic 111–134; BP diastolic 62–82; PULSE 75–84; RESP 18–19; TEMP 35.5–37.1; O2SAT 95–96
[2022-01-06] MEDS: OXYCODONE IR 5 MG TABLET PO ×3 (01:04→23:43)
[2022-01-06] MEDS: HYDROCORTISONE 1% OINT 28 GM 1 APPLIC TOP (03:05)
--- NOTE | 2022-01-06 06:40 | PC.NURSE ---
Pt state he was having a hard time sleeping last night. Took his schedule benadryl at 2000 and 0000. Pt also took oxydodone twice for right ankle pain. Pt not moving in bed frequently and needing reinformance in the importance of moving in the bed. Pt requesting for the nursing staff to apply cream to his back numerous time due to itching. Pt encourage to let us give him a bed bath or take a shower which he refused. Pt also refused his insulin last night and his thyroid medication. Plan is for patient to go to a rehab facility.
[2022-01-06] MEDS: carvediloL 12.5 MG TABLET 25 MG PO ×2 (08:18→20:41)
[2022-01-06] MEDS: PANTOPRAZOLE DR 20 MG TABLET PO (08:19)
[2022-01-06] MEDS: DOCUSATE 100 MG CAPSULE 200 MG PO (08:19)
[2022-01-06] MEDS: INSULIN LISPRO 100 UNIT/ML 3ML VIAL SUBCUT ×3 (08:21→17:28)
[2022-01-06] MEDS: ENOXAPARIN 40 MG/0.4 ML SYRINGE SUBCUT ×2 (08:26→20:41)
--- NOTE | 2022-01-06 08:28 | PC.NURSE ---
Addendum entered by Josie Arndt R.N. 01/06/22 12:43: Patient finished his lunch, he has no complaints of pain. He wants to go back to bed via michael lift. Gave him a hair cap to wash his hair. No voices no needs at this time. Original Note: Patient is alert and oriented x3, he is eating is breakfast and his blood sugar this morning is 189. He will get some insulin and float RN is getting his medication ready to give him. He has multiple skin issues and breakdown,this can all be seen under skin assessment. Patient has a hx of having a cva and he has left sided arm and leg paralysis. He has a splinted cast to his r. lower ankle and a wrap on his l.foot. His l.foot is deformed, patient has lymph edema, patient is calling this elephantiw
[2022-01-06] MEDS: GLIMEPIRIDE 2 MG TABLET 4 MG PO (09:44)
--- NOTE | 2022-01-06 11:43 | DIET.PN1 ---
Dietary Progress Note RD Note: RD f/u on pt with low Denis score and morbid obesity. Pt consuming 100% POs and foods recommended by DM educator last week. Because ONS Ray is still on back order, will send ONS Ensure Max c lunches to support pts high protein needs in addition to meal trays. Ht: 175.26 cm Wt: 158 kg BMI: 51.4 UBW: Last BM: 01/05/22 (01/05/22 16:40) MNA: 13 Denis Score: 14 Diet: 12/25/21 Breakfast Carbohydrate Consistent Diet Diet Modifications: ensure max c lunches Carbohydrate level: Large (4 CHO) Bedtime snack: Yes Heart Healthy Diet Diet Modifications: Nutrition Percent Meal Consumed 100% 01/05/22 17:21 Percent Meal Consumed 100% 01/05/22 13:00 Percent Meal Consumed 100% 01/05/22 09:02 Percent Meal Consumed 100% 01/04/22 19:05 Labs: RBC 4.57 X10^6/uL (4.5-5.9) 12/28/21 13:20 Hgb 10.7 g/dL (13.5-17.5) L 12/28/21 13:20 Hct 33.3 % (41-53) L 12/28/21 13:20 Creatinine 1.05 mg/dL (0.66-1.25) 12/28/21 13:20 Hemoglobin A1c 7.0 % (4.0-6.0) H 12/25/21 05:04 Electronically Signed by: Marilee Lind 01/06/22 11:43 Clinical Dietitian [address] [id number]
[2022-01-06] MEDS: NYSTATIN CREAM 30 GM 1 APPLIC TOP (12:02)
--- NOTE | 2022-01-06 12:57 | CM.DPC ---
Addendum entered by REYNALDO Moss 01/06/22 14:38: ADD: Return call from [place] and [facility] ([facility]) Jennifer [phone] stating she is the newly assigned [facility] CM that will be helping with placement for the pt from the hospital. SW updated her on pt's hx and status/situation and the urgent need to find appropriate placement due to his bariatric size, 2-3PA level, sacral wound, non-weight baring and hx of CVA weakness, etc... ZACK provided Jennifer with the information and contact Dana at [facility] and need for referral to come from within [facility] and also Henrietta Maradiaga's information. Jennifer plans to determine what is needed for referral to [facility] in [place] and if pt's HCS assessment needs to be updated to show pt's current higher level of care needs. Jennifer is aware of the urgency and will begin gathering information and placing phone calls towards finding placement for the patient and will keep SW updated and inform us if any further clinicals needed from the hospital. BF Original Note: DCP Cont: Per MD, pt remains medically stable and PT/OT currently not working with pt as he needs time to heal towards being able to bare weight as tolerated for more appropriate skilled rehab. Pt remains a placement challenge due to his bariatric size and inability to bare weight and hx of CVA with residual weakness. ZACK called [facility] main number and left msg inquiring if pt has been assigned to a specific [facility] worker towards assist with updated assessment and placement. ZACK spoke to Maritza pt's PATRICA CM at [facility], and she confirms that pt's file has been transferred back to [facility] as pt now a placement challenge and needing their hospital placement team. Maritza states she was told pt's new HCS CM may be Young Garcia ([phone]) and Maritza no longer has access to pt's information now that his file is transferred back to [facility]. ZACK called Young Garcia [phone] and left two msg requesting call back to confirm if he is now pt's HCS worker towards helping get pt placed from the hospital. ZACK called Henrietta Maradiaga [phone] who is they it business systems analyst who helps get referrals to [facility] from [facility] and left two msgs requesting call back. ZACK called Dana Brand ([phone]) admissions at [facility] [place] and she confirms that she has not received pt's referral for their program and is awaiting HCS to send pt?s referral so she can review as the referral has to come from within [facility] and cannot come directly from the hospital. SW left Henrietta Maradiaga another msg in regards to need for pt's referral to be sent to Dana Brand at [facility]. REYNALDO Moss
[2022-01-06] MEDS: SIMETHICONE 80 MG TABLET PO ×2 (13:17→20:41)
--- NOTE | 2022-01-06 13:44 | PM.PN.1 ---
Subjective Subjective Date Patient Seen: 01/06/22 Time Patient Seen: 13:44 Interval history: No complaints today. Exam Vital Signs (past 8 hours): - 01/06/22 07:00 01/06/22 07:30 01/06/22 08:18 Temperature 96 F L Pulse Rate 75 76 Respiratory Rate 19 Blood Pressure 134/82 134/82 Pulse Oximetry 95 96 01/06/22 12:00 Temperature 97 F L Pulse Rate 78 Respiratory Rate 19 Blood Pressure 134/81 Pulse Oximetry 95 Oxygen Delivery Method Room Air Oxygen Flow Rate 0 Narrative Exam Narrative: General:? Alert, comfortable appearing Breathing nonlabored Chronic lymphedema in legs unchanged, has ankle splint on right side Objective Labs Result Diagrams: 12/28/21 13:20 12/28/21 13:20 [facility] Medical History Asthma Chronic acquired lymphedema HTN (hypertension) Hyperlipidemia Morbid obesity with body mass index (BMI) of 40.0 to 49.9 Obstructive sleep apnea (04/03/20) Family History Family/Other Obesity Hypertension Diabetes mellitus Heart disease Dementia Social History household members: none Smoking Status: Never smoker Assessment & Plan Assessment & Plan narrative: 61-year-old male admitted to the hospital with morbid obesity, type 2 DM, hypertension, asthma, obstructive sleep apnea, left hemiplegia secondary to history of stroke, who presents with a right ankle fracture/dislocation after a mechanical fall. 1. Right ankle fracture, non-operative -Patient has suffered a distal fibular fracture, and medial malleolar fracture which has been reduced and splinted -Given his significant morbid obesity he will be unable to transfer given the fracture right ankle -PT/OT on-board and appreciate their recommendations -Tylenol/oxycodone as needed -SNF rehab 2. Type 2 DM, adequately controlled -A1c 7.0, severe obesity -Insulin sliding scale -Glimepiride 2 mg q.d. per home routine -Continue patient's atorvastatin 3.? Severe obesity, BMI greater than 50 -This is clearly had a significant impact on his morbidity, as his obesity likely is the cause of the right ankle fracture which is resulting in his inability to move and pivot at this point. 4. Hypertension, chronic -Continue carvedilol 25 mg b.i.d., increased from home dosage 5.? Obstructive sleep apnea -Patient denies use of CPAP at home 6. Sacral decubitus ulcer, unstageable, resolved Given his significant obesity, and inability to move this is problematic as he is at high risk for further skin breakdown -Treated with daptomycin through December 28 for possible surrounding cellulitis 7. Elephantiasis, secondary to lymphedema -Chronic, continue his usual wound dressing. Cotton underneath coban dressing changes every 3-4 days. 8. Intertrigo, likely Lanie, affecting many folds -Continue with nystatin topical -Also on PO Diflucan 150 mg once weekly for 4 weeks (started December 25, 2021) 9. Asthma, likely made worse by copious marijuana use -Continue the albuterol inhaler, as needed 9. Insomnia -Continue home routine-takes 50 mg trazodone and 50 mg Benadryl at 6:00 p.m. and 50 mg Benadryl at midnight 10. Constipation -Psyllium husk b.i.d. per patient home routine -MiraLax daily, docusate 100 b.i.d. Dispo: patient is medically stable for discharge, pending dispo Time Spent With Patient Critical Care time: I spent a total of [] minutes of critical care time on this patient's care today; this time is exclusive of procedural time.
[2022-01-06] MEDS: ONDANSETRON 4 MG ODT SL (18:31)
[2022-01-06] MEDS: PSYLLIUM HUSK 1 PACKET PO (20:41)
[2022-01-06] MEDS: diphenhydrAMINE 25 MG TABLET 50 MG PO ×2 (20:41→23:43)
[2022-01-06] MEDS: ATORVASTATIN 20 MG TABLET PO (20:41)
[2022-01-06] MEDS: TRAZODONE 50 MG TABLET PO (20:41)
[2022-01-07] MEDS: OXYCODONE IR 5 MG TABLET PO ×2 (05:26→20:08)
[2022-01-07 07:00] VITALS: BP 150/81; PULSE 80; RESP 18; TEMP 35.7; O2SAT 94
[2022-01-07] MEDS: INSULIN LISPRO 100 UNIT/ML 3ML VIAL SUBCUT ×3 (07:53→16:55)
[2022-01-07] MEDS: GLIMEPIRIDE 2 MG TABLET 4 MG PO (07:54)
[2022-01-07] MEDS: DOCUSATE 100 MG CAPSULE 200 MG PO (07:56)
[2022-01-07] MEDS: PANTOPRAZOLE DR 20 MG TABLET PO (07:56)
[2022-01-07] MEDS: ENOXAPARIN 40 MG/0.4 ML SYRINGE SUBCUT ×2 (08:02→20:09)
[2022-01-07] MEDS: carvediloL 12.5 MG TABLET 25 MG PO ×2 (08:02→20:08)
[2022-01-07] MEDS: SIMETHICONE 80 MG TABLET PO ×2 (09:01→20:22)
[2022-01-07 09:29] VITALS: O2SAT 93
--- NOTE | 2022-01-07 09:53 | PC.NURSE ---
Addendum entered by Josie Arndt R.N. 01/07/22 13:39: Patients buttocks has cleared up, there is no redness or open area's noted. He has a scar to the r.buttocks cheek that is healed up, there was an open area there but resolved. Patient has some redness under his panus and l.armpit as he has limited mobility with this arm. Cleaned daily and cream applied to area. We have also been applying cream to his buttocks to prevent any redness and he will let us know if he wants his waffle cushion under him. L.leg dressing changed with cotton undercast padding, area cleansed with normal saline and patient had a bunch of skin fall off of leg. He has a hx of lymph edema, which has caused his foot to be deformed on the top with large scales and flakes to area. Original Note: Assess- Patient is alert and oriented x3, he denies pain at this time. Patient has multiple skin issues and this can all be seen under skin assessment in computer. He has hx of cva in his 30s and has left sided arm and leg weakness. Patient has a splinted cast to his r.ankle from a fall at home, and he has a dressing to his l.ankle that will be changed sometime today. Given insulin for blood sugar of 202, and he just had his gas medication that he requested and this has helped him. Medication is simethacone.
--- NOTE | 2022-01-07 13:00 | PM.PN.1 ---
Subjective Subjective Date Patient Seen: 01/07/22 Time Patient Seen: 13:00 Interval history: No complaints today except for mild neck pain after sitting in the bedside chair much of yesterday. Exam Vital Signs (past 8 hours): - 01/07/22 07:00 01/07/22 09:29 Temperature 96.3 F L Pulse Rate 80 Respiratory Rate 18 Blood Pressure 150/81 H Pulse Oximetry 94 93 Oxygen Delivery Method Room Air Oxygen Flow Rate 0 Narrative Exam Narrative: General:? Alert, comfortable appearing Breathing nonlabored Chronic lymphedema in legs unchanged, has ankle splint on right side Objective Labs Result Diagrams: 12/28/21 13:20 12/28/21 13:20 [facility] Medical History Asthma Chronic acquired lymphedema HTN (hypertension) Hyperlipidemia Morbid obesity with body mass index (BMI) of 40.0 to 49.9 Obstructive sleep apnea (04/03/20) Family History Family/Other Obesity Hypertension Diabetes mellitus Heart disease Dementia Social History household members: none Smoking Status: Never smoker Assessment & Plan Assessment & Plan narrative: 61-year-old male admitted to the hospital with morbid obesity, type 2 DM, hypertension, asthma, obstructive sleep apnea, left hemiplegia secondary to history of stroke, who presents with a right ankle fracture/dislocation after a mechanical fall. 1. Right ankle fracture, non-operative -Patient has suffered a distal fibular fracture, and medial malleolar fracture which has been reduced and splinted -Given his significant morbid obesity he will be unable to transfer given the fracture right ankle -PT/OT on-board and appreciate their recommendations -Tylenol/oxycodone as needed -SNF rehab 2. Type 2 DM, adequately controlled -A1c 7.0, severe obesity -Insulin sliding scale -Glimepiride 2 mg q.d. per home routine -Continue patient's atorvastatin 3.? Severe obesity, BMI greater than 50 -This is clearly had a significant impact on his morbidity, as his obesity likely is the cause of the right ankle fracture which is resulting in his inability to move and pivot at this point. 4. Hypertension, chronic -Continue carvedilol 25 mg b.i.d., increased from home dosage 5.? Obstructive sleep apnea -Patient denies use of CPAP at home 6. Sacral decubitus ulcer, unstageable, resolved Given his significant obesity, and inability to move this is problematic as he is at high risk for further skin breakdown -Treated with daptomycin through December 28 for possible surrounding cellulitis 7. Elephantiasis, secondary to lymphedema -Chronic, continue his usual wound dressing. Cotton underneath coban dressing changes every 3-4 days. 8. Intertrigo, likely Lanie, affecting many folds -Continue with nystatin topical -Also on PO Diflucan 150 mg once weekly for 4 weeks (started December 25, 2021) 9. Asthma, likely made worse by copious marijuana use -Continue the albuterol inhaler, as needed 9. Insomnia -Continue home routine-takes 50 mg trazodone and 50 mg Benadryl at 6:00 p.m. and 50 mg Benadryl at midnight 10. Constipation -Psyllium husk b.i.d. per patient home routine -MiraLax daily, docusate 100 b.i.d. Dispo: patient is medically stable for discharge, pending dispo Time Spent With Patient Critical Care time: I spent a total of [] minutes of critical care time on this patient's care today; this time is exclusive of procedural time.
--- NOTE | 2022-01-07 16:01 | DIET.PN1 ---
Addendum entered by Marilee Lind 01/07/22 16:29: discussed hyperglycemia c inpatient hospitalist who stated pt is on low dose correctional insulin. Per nursing, pt refusing HS insulin. Original Note: Dietary Progress Note Assessment: F/u for 61y M c DM2. Pts BGs have been between 200-300 this hospitalization with no hypo or euglycemia. Recc increasing insulin for better BG control to assist wound healing. Ht: 175.26 cm Wt: 158 kg BMI: 51.4 UBW: Last BM: 01/05/22 (01/05/22 16:40) MNA: 13 Denis Score: 16 Diet: 12/25/21 Breakfast Carbohydrate Consistent Diet Diet Modifications: Ensure Max c lunches Carbohydrate level: Large (4 CHO) Bedtime snack: Yes Heart Healthy Diet Diet Modifications: Nutrition Percent Meal Consumed 100% 01/07/22 12:00 Percent Meal Consumed 100% 01/06/22 17:57 Percent Meal Consumed 100% 01/06/22 12:00 Percent Meal Consumed 100% 01/05/22 17:21 Labs: RBC 4.57 X10^6/uL (4.5-5.9) 12/28/21 13:20 Hgb 10.7 g/dL (13.5-17.5) L 12/28/21 13:20 Hct 33.3 % (41-53) L 12/28/21 13:20 Creatinine 1.05 mg/dL (0.66-1.25) 12/28/21 13:20 Hemoglobin A1c 7.0 % (4.0-6.0) H 12/25/21 05:04 Electronically Signed by: Marilee Lind 01/07/22 16:01 Clinical Dietitian [address] [address]
[2022-01-07] MEDS: HYDROCORTISONE 1% OINT 28 GM 1 APPLIC TOP (16:57)
[2022-01-07 19:45] VITALS: O2SAT 92
[2022-01-07 20:02] VITALS: BP 134/77; PULSE 84; RESP 16; O2SAT 92
[2022-01-07] MEDS: diphenhydrAMINE 25 MG TABLET 50 MG PO (20:06)
[2022-01-07 20:08] VITALS: BP 134/77; PULSE 84
[2022-01-07] MEDS: PSYLLIUM HUSK 1 PACKET PO (20:09)
[2022-01-07] MEDS: ATORVASTATIN 20 MG TABLET PO (20:09)
[2022-01-07] MEDS: TRAZODONE 50 MG TABLET PO (20:09)
[2022-01-08] MEDS: diphenhydrAMINE 25 MG TABLET 50 MG PO ×2 (01:44→19:29)
[2022-01-08] MEDS: OXYCODONE IR 5 MG TABLET PO ×4 (01:48→23:22)
[2022-01-08] MEDS: SIMETHICONE 80 MG TABLET PO ×3 (01:48→23:25)
[2022-01-08 07:30] VITALS: O2SAT 93
[2022-01-08 07:40] VITALS: BP 118/66; PULSE 78; RESP 18; TEMP 36; O2SAT 91
[2022-01-08] MEDS: GLIMEPIRIDE 2 MG TABLET 4 MG PO (09:11)
[2022-01-08] MEDS: PANTOPRAZOLE DR 20 MG TABLET PO (09:11)
[2022-01-08] MEDS: DOCUSATE 100 MG CAPSULE 200 MG PO (09:11)
[2022-01-08 09:15] VITALS: BP 118/66
[2022-01-08] MEDS: carvediloL 12.5 MG TABLET 25 MG PO ×2 (09:15→20:18)
[2022-01-08] MEDS: ENOXAPARIN 40 MG/0.4 ML SYRINGE SUBCUT ×2 (09:15→20:18)
--- NOTE | 2022-01-08 11:54 | P.PN_ITS ---
Subjective Subjective Interval history: Patient endorses some itchiness at the right ankle cast site. Denies issues with PO intake or urination/defecation. Exam Vital Signs (past 8 hours): - 01/08/22 07:30 01/08/22 07:40 01/08/22 09:15 Temperature 96.8 F L Pulse Rate 78 Respiratory Rate 18 Blood Pressure 118/66 118/66 Pulse Oximetry 93 91 Oxygen Delivery Method Room Air Oxygen Flow Rate 0 Narrative Exam Narrative: Const Other: Patient is laying in bed comfortably upon my entering the room, watching TV, and does not appear in acute distress, large body habitus noted HENMT Other: Bluish discoloration of lips noted Eyes Other: No scleral icterus appreciated Neck Other: Wide circumference neck noted Resp Other: Faint inspiratory scattered wheezes appreciated, no other adventitous breath sounds noted Cardio Other: RRR, S1 and S2 heart sounds normal, no extra heart sounds or murmurs appreciated GI Other: Soft, non-distended, non-tender, bowel sounds present Extrem Other: Bilateral lymphedema noted, with overlying skin changes consistent with chronic lymphedema, palpable dorsalis pedis pulses bilaterally, with RLE cast in place Objective Labs Result Diagrams: 12/28/21 13:20 12/28/21 13:20 [facility] Medical History Asthma Chronic acquired lymphedema HTN (hypertension) Hyperlipidemia Morbid obesity with body mass index (BMI) of 40.0 to 49.9 Obstructive sleep apnea (04/03/20) Family History Family/Other Obesity Hypertension Diabetes mellitus Heart disease Dementia Social History household members: none Smoking Status: Never smoker Assessment & Plan Assessment & Plan narrative: 61-year-old male admitted to the hospital with morbid obesity, type 2 DM, hypertension, asthma, obstructive sleep apnea, history of stroke, who presents with a right ankle fracture/dislocation after a mechanical fall. 1. Right ankle fracture, non-operative * Patient has suffered a distal fibular fracture, and medial malleolar fracture which has been reduced and splinted * Given his significant morbid obesity he will be unable to transfer given the fracture right ankle * PT/OT on-board and appreciate their recommendations 2. Type 2 DM * Insulin sliding scale inpatient * Home glimeperide 4 mg daily on-board 3. Morbid obesity, class 3 * This clearly had a significant impact on his morbidity, as his obesity likely is the cause of the right ankle fracture which is resulting in his inability to move and pivot at this point 4. Hypertension * Continue home carvedilol 25 mg bid, patient reports he no longer takes lisinopril, and is unsure why 5. Obstructive sleep apnea * Patient denies use of CPAP at home 6. Sacral decubitus ulcer, stage III/IV * Given his significant obesity, and inability to move this is problematic as he is at high risk for further skin breakdown 7. Elephantiasis, secondary to lymphedema * Chronic, continue his usual wound dressing 8. Intertrigo, likely Lanie, affecting many folds * Will start topical clotrimazole/betamethasone * Will start PO Diflucan 150 mg once weekly for 4 weeks (started December 25, 2021) 9. Asthma, likely made worse by copious marijuana use * Continue the albuterol inhaler, as needed 10. Insomnia * Continue home trazodone 50 mg daily * Nightly Benadryl 50 mg, as needed VTE prophylaxis: Lovenox 40 mg daily Code: Full code Proxy: Sister, Chiquita I have utilized all available immediate methods to review, update, or confirm the patient's current medications. Time Spent With Patient Critical Care time: I spent a total of [] minutes of critical care time on this patient's care today; this time is exclusive of procedural time. Quality MIPS - Admit I confirm the patient?s Advance Care Plan is present, Code status is documented, Surrogate decision maker is in patient?s record [If Yes, STOP here]: Yes
--- NOTE | 2022-01-08 12:06 | CM.DPC ---
Addendum entered by Vanna Pugh R.N. 01/08/22 14:30: Jennifer, from [facility] called back. She stated that she is giving case to Hugo rS, she is the [facility] supervisor paper products, and she may reach out to this DC Soccer Commentator. Jennifer did state that she is still the supervisor contact and service clerks, not to contact Hugo. She mentioned that there are similar cases as to this one that is going as far as Nika, for these type of placement challenges. Let Jennifer know that this DC maintenance planner has continued to look for placement as well, and reminded her of the barriers being that he needs [facility] care, he is bariatric, and unable to work with P.[facility]. for short term rehab. She is aware of the situation. Jennifer indicated that if Hugo Sr does not reach out to this DC maintenance planner by the end of this week, to call Jennifer back on Thursday, which is what this DC maintenance planner will do. For now, [facility] is reviewing, and [facility]. There is also a message out to [facility] as well. Jennifer did indicated that Hugo is working on how to get [facility] the [facility]. Addendum entered by Vanna Pugh R.N. 01/08/22 12:57: Called more facilities. Called [facility] in [place], they have no beds available. Called [facility]. Spoke to Marisabel in admissions. Gave her an update on patient, they do have [facility] beds, and are willing to review. She gave a fax number of: [phone]. Asking Katie to fax referral over to her. Her phone number is: [phone]. Addendum entered by Vanna Pugh R.N. 01/08/22 12:36: Called [facility] and spoke to Jose in admissions. She stated that they do have Medicaid beds, but have to have a mental health disorder to qualify, for their contract. Called [facility] in [place]. Nani Nguyen LPN is the admission nurse who is out until next week. Spoke to the weekend receptionist who encouraged this DP maintenance planner to email her with referral, may be able to look at him. Gave Katie, assistant professor of psychology, her email address, and she will email to [facility]. Called Lilliana at [facility]. They have no beds this week due to staffing shortage of nurses, and have no Medicaid beds at this time. Will continue to work on placement. Original Note: DCP Cont: It is now noted that patient's case consultant is Oliverio Groves, through [facility]. PATRICA Salas CM is no longer involved in case, since now the plan is for him to go to an outside facility. According to notes, Jennifer Groves is now the one to determine if a new assessment needs to be done for update, and how to get patient to Transitional Care, or other placement. [facility] a message on her phone, which is: [phone]. In the message, let her know that this case consultant will be here for the next few days, and can use a contact. Let her also know in the message that several facilities have been contacted for placement, and have turned patient down. DC Neo had already spoke to her and let her know previously that a facility needs to be secured as soon as possible, since he is currently medically stable. P: DCP to continue to work on placement, and will await call back from Jennifer who is also working on the case. Did not hear back from Osmin MARTINEZ, [facility], or [facility]. Will follow up today. Vanna Pugh, RN/First Responder
--- NOTE | 2022-01-08 13:04 | CM.DPNOTE ---
Faxed [facility] [phone] and emailed [email or web address] with referral. Katie Bennett CM Assist.
[2022-01-08] MEDS: INSULIN LISPRO 100 UNIT/ML 3ML VIAL SUBCUT ×3 (13:39→20:25)
[2022-01-08] MEDS: DICLOFENAC 1% GEL 100 GM 1 APPLIC TOP (15:09)
--- NOTE | 2022-01-08 15:42 | PC.NURSE ---
Pt A/O, condition remain essentially unchanged. CBG ac = 175 & 271 (3u S/S) Lungs clear, diminished at based SpO2 96% RA Dsg wraps to bilateral lower legs CDI. Pt sat in chair this afternoon for 1.5 hr Med w/simethacone for flatus Oxycodone x 1 @ 1035 for discomfort. ML STAR intact/patent. Call light w/in reach, bed alarm on for pt safety. Continue w/plan of care.
[2022-01-08 19:41] VITALS: PULSE 86; RESP 16; O2SAT 95
[2022-01-08 20:00] VITALS: BP 127/71; PULSE 86; RESP 18; TEMP 36.6; O2SAT 95
[2022-01-08] MEDS: TRAZODONE 50 MG TABLET PO (20:18)
[2022-01-08] MEDS: ATORVASTATIN 20 MG TABLET PO (20:18)
[2022-01-09] MEDS: TRIAMCINOLONE 0.025% CREAM 1 APPLIC TOP (02:43)
[2022-01-09] MEDS: NYSTATIN CREAM 30 GM 1 APPLIC TOP (02:43)
--- NOTE | 2022-01-09 07:39 | CM.DPC ---
Addendum entered by Vanna Pugh R.N. 01/09/22 10:20: Discussed patient during team rounds. Dr. Cárdenas is ordering a ortho consult with Dr. Martinez to revaluate his ankle and see if he may be able to do some weight bearing. Spoke to one of the nursing staff, Doris, and inquired if patient is willing to be turned. She indicated, he just needs encouragement, is not motivated, but will do so. Staff have continued to use hoier to get him up as well. Will see what ortho indicates. Awaiting call from [facility] customer service supervisor regarding placement at a transitional care unit. If no call today, will follow up with [facility], since she is now patient's current disease case manager. Original Note: DCP Cont: Anaid from [facility] left a message indicating, they can't accept him due to his wounds, and not being turned. Will await hearing back from [facility] customer service supervisor, and if no response, will contact [facility] tomorrow. P: DCP to continue to work on a discharge plan to a facility with [facility]. Vanna Pugh RN/Maintenance Trainer
[2022-01-09] MEDS: DOCUSATE 100 MG CAPSULE 200 MG PO (08:20)
[2022-01-09] MEDS: PANTOPRAZOLE DR 20 MG TABLET PO (08:20)
[2022-01-09] MEDS: GLIMEPIRIDE 2 MG TABLET 4 MG PO (08:21)
[2022-01-09 08:23] VITALS: BP 127/71
[2022-01-09] MEDS: carvediloL 12.5 MG TABLET 25 MG PO ×2 (08:23→20:15)
[2022-01-09] MEDS: ENOXAPARIN 40 MG/0.4 ML SYRINGE SUBCUT ×2 (08:23→20:12)
[2022-01-09 09:30] VITALS: BP 125/68
--- NOTE | 2022-01-09 09:55 | DI.RAD.S_ITS ---
PROCEDURE: XR ANKLE RT MIN 3V INDICATIONS: fracture TECHNIQUE: 3 views of the ankle were acquired. COMPARISON: [facility], CR, XR ANKLE RT 2V, 12/25/2021, 2:09. [facility], CR, XR ANKLE RT 2V, 12/25/2021, 4:51. FINDINGS: Bones: Comminuted distal fibular and medial malleolar fracture is again noted. Persistent lateral angulation of distal fibular fracture fragment. Additionally, there is persistent medial subluxation of the tibia over the talus with complete disruption of the ankle mortise. Overlying fiberglass cast again noted. Incidental posterior and plantar calcaneal spurs present. Soft tissues: Persistent generalized soft tissue swelling. IMPRESSION: 1. Comminuted distal fibular and medial malleolar fractures in cast. Persistent lateral angulation of the distal fibula. 2. Persistent medial subluxation of the tibia over the talus with complete ankle mortise disruption Approved by: Travis Patiño M.D. on 01/09/2022 at 9:58
--- NOTE | 2022-01-09 12:22 | P.CONS_ITS ---
History of Present Illness Consult details Date Patient Seen: 01/09/22 Time Patient Seen: 12:23 Chief complaint: ankle injury Reason for consult: Right ankle fracture Requesting provider: Anjali Cárdenas Narrative: This is a 61-year-old male with multiple medical comorbidities including hemiparesis, chronic severe lymph edema affecting both sides but the left is worse. He has diabetes and severe obesity BMI 51.4. This hemiparesis on the left side he uses his right side as his transfer leg an any weight-bearing. He sustained a unstable fracture dislocation of his right ankle. This was partially reduced in the ER he was admitted to the hospital and there was a Orthopedic consult by Dr. Baez about 2 weeks ago when the patient was admitted. At that point was felt that his medical comorbidities were severe and was indicated for later follow-up with a foot and ankle orthopedist. He has not been discharged and remains in the hospital. This now been 2 weeks I have been asked now today to re-evaluate his orthopedic problems. He remains in the hospital regarding placement and his comorbidities. He also endorses that he has been feeling more pressure around his heel in his splint. And there is concerns for wound problems. He had been living independently at home however there has been a lack of care and failure to thrive with this Meds Home Medications and Allergies Home Medications Medication Instructions Recorded Confirmed Type albuterol sulfate 90 mcg/actuation 1 puff INHALATION PRN PRN 01/20/19 12/25/21 History aerosol inhaler triamcinolone acetonide 0.1 % 1 applic TOPICAL PRN PRN 01/20/19 12/25/21 History topical ointment atorvastatin 20 mg tablet 20 mg PO BEDTIME 12/29/21 12/29/21 History carvedilol 12.5 mg tablet 12.5 mg PO BID 12/29/21 12/29/21 History diphenhydramine HCl 100 mg PO BID 12/29/21 12/29/21 History glimepiride 2 mg tablet 2 mg PO DAILY 12/29/21 12/29/21 History hydrocortisone 2.5 % topical cream See Rx Instructions .ROUTE .COMPLEX 12/29/21 12/29/21 History with perineal applicator ([facility]) levothyroxine 25 mcg tablet 25 mcg PO DAILY 12/29/21 12/29/21 History nystatin 100,000 unit/gram topical See Rx Instructions .ROUTE .COMPLEX 12/29/21 12/29/21 History ointment omeprazole 20 mg capsule,delayed 20 mg PO DAILY 12/29/21 12/29/21 History release trazodone 50 mg tablet 50 mg PO QPM 12/29/21 12/29/21 History Allergies Allergy/AdvReac Type Severity Reaction Status Date / Time clindamycin AdvReac upset Verified 12/25/21 02:07 stomach Review of Systems Review of Systems Narrative: Chronic shortness of breath. Right lower extremity pain,. Sleep apnea, chronic lymphedema elephantitis Exam Vital Signs (past 8 hours): - 01/09/22 08:23 01/09/22 09:30 Blood Pressure 127/71 125/68 Oxygen Delivery Method Room Air Oxygen Flow Rate 0 Narrative Exam Narrative: Patient is a morbidly obese male in no acute distress sitting in his bedside chair. He is pleasant and interactive today. When I come in to talk to him he asks I will speak to his sister to which she had I will soft and she is on speaker phone throughout the examination and counseling today. He is alert and oriented no use of accessory muscles for breathing. HEENT exam normocephalic atraumatic Heart exam regular rate and rhythm Lung exam clear to auscultation Abdomen is soft Left lower extremity demonstrates weakness severe chronic lymph edema, and elephantittis dressings in place Right lower extremity with additional peripheral edema and lymphedema specially in the foot. Not as severe as the left side. The splint is removed on the right side to check the skin. There is mild ecchymosis. No wounds or blisters. Skin is dry. At patient's request some lotion is placed. There is a valgus deformity of the ankle consistent with a displaced bimalleolar ankle fracture wi th persistent mortise widening. There is no threatened or tented skin. Calf is soft. There is no erythema or signs of infection. There is a palpable dorsalis pedis pulse. The swelling and tenseness of the skin along the medial and lateral malleoli is concerning for any type of surgical planning that would involve traditional by malleolar fixation. Foot is then wrapped and padded with ABD pads and placed back into the splint. Objective Imaging right ankle xray: My impression: Three views right ankle to lateral then 1 AP image right ankle demonstrate displaced bimalleolar ankle fracture with widened mortise. Radiologist's impression: IMPRESSION: 1. Comminuted distal fibular and medial malleolar fractures in cast. Persistent lateral angulation of the distal fibula. 2. Persistent medial subluxation of the tibia over the talus with complete ankle mortise disruption Approved Labs Result Diagrams: 12/28/21 13:20 12/28/21 13:20 [facility] Medical History (Updated 01/09/22 @ 16:03 by Marlin Martinez MD) Asthma Chronic acquired lymphedema HTN (hypertension) Hyperlipidemia Morbid obesity with body mass index (BMI) of 40.0 to 49.9 Obstructive sleep apnea (04/03/20) Family History Family/Other Obesity Hypertension Diabetes mellitus Heart disease Dementia Social History household members: none Tobacco & Substance Use Smoking Status: Never smoker Additional Social History additional social history: Had lived independently but failure to thrive and care deficits. Smoking 18 g of marijuana daily Assessment & Plan Assessment and plan (1) Ankle dislocation: Qualifiers: Encounter type: initial encounter Laterality: right Qualified Code(s): S93.04XA - Dislocation of right ankle joint, initial encounter Status: Acute (2) Ankle fracture: Qualifiers: Encounter type: initial encounter Fracture type: closed Laterality: right Qualified Code(s): S82.891A - Other fracture of right lower leg, initial encounter for closed fracture Status: Acute (3) Chronic acquired lymphedema: Status: Chronic (4) Morbid obesity with BMI of 50.0-59.9, adult: Status: Acute Plan Patient is a 61-year-old male with left-sided hemiparesis who sustained a right ankle fracture with his transfers. This was a right ankle fracture dislocation with distal fibular and medial malleolar fractures. There was a partial reduct ion in the ER with persistent mortise widening. Patient was seen by a colleague about 2 weeks ago and felt due to the severe medical comorbidities would be best managed initially non operatively and recommended follow-up with a foot and ankle orthopedist. Patient has continued to be in the hospital due to difficult senior living placement. I was called and learned of the patient for the 1st time today. I have gone to evaluate him. I have discussed with both the patient and his sister on the telephone the patient's situation the fracture in options for treatment. He has a displaced bimalleolar ankle fracture and severe lower extremity lymph edema. His left side is worse than his right but this is still quite severe. He has no open wounds or blisters but due to his overall habitus and the condition of his skin I do not think that standard open reduction internal fixation of this ankle fracture through medial and lateral approaches should be performed and has a high risk of wound breakdown and infection. That said the right lower extremity is the patient's transfer leg and he uses it all the time for his mobilization and transfers. Treatment non operatively in a cast is also not ideal as the fracture is an unstable fracture and the likelihood of loss of reduction and or ulceration in a cast due to his skin integrity would also be high and he would not be able to place weight on it--in reality he would likely weightbear through the cast and increase the risk of displacement fracture failure and wound formation. He has diabetes with last hemoglobin A1c on 12/25/2021 was 7.0 I have discussed an option for a hind foot tibiotalar calcaneal nina or nail for his ankle fracture this would be a nina that goes from the calcaneus or the heel bone in to the ankle bone and koo bone the tibia. Goal of this treatment is to hold the ankle in stable alignment and prevent displacement and also allow immediate weight-bearing. The goal of this surgery would not be for fusion of the joints but stable alignment. With the deep implant inside the bone this would reduce the risks of a prominent hardware or wound breakdown. There are risks of surgery including risks of infection failure or fracture above the level of the implant and there are risks with general anesthesia. I have spoken with the hospitalist team and sounded like cardiac heaton the patient would be okay for a surgical procedure although he remains with medical comorbidities of severe obesity. I have recommended hindfoot nailing for internal load sharing device to reduce the risks of displacement or failure and promote early mobilization. The patient and the sister would like to think about this and I will give them some pictures to review. The procedure would be done as an inpatient and if they decide to have it please let the orthopedic team know and we can work on scheduling prior to discharge. COVID-19 COVID-19 status: Negative Time Spent With Patient Time with patient: 30 to 49 minutes with 50% spent counseling/coordinating care Critical Care time: I spent a total of [] minutes of critical care time on this patient's care today; this time is exclusive of procedural time.
--- NOTE | 2022-01-09 12:57 | P.PN_ITS ---
Subjective Subjective Interval history: Patient reports feeling OK this morning. He denies any acute complaints. He reports eating and drinking OK. Exam Vital Signs (past 8 hours): - 01/09/22 08:23 01/09/22 09:30 Blood Pressure 127/71 125/68 Oxygen Delivery Method Room Air Oxygen Flow Rate 0 Narrative Exam Narrative: Const Other: Patient is laying in bed comfortably upon my entering the room, watching TV, and does not appear in acute distress, large body habitus noted HENMT Other: Bluish discoloration of lips noted Eyes Other: No scleral icterus appreciated Neck Other: Wide circumference neck noted Resp Other: Faint inspiratory scattered wheezes appreciated, no other adventitous breath sounds noted Cardio Other: RRR, S1 and S2 heart sounds normal, no extra heart sounds or murmurs appreciated GI Other: Soft, non-distended, non-tender, bowel sounds present Extrem Other: Bilateral lymphedema noted, with overlying skin changes consistent with chronic lymphedema, palpable dorsalis pedis pulses bilaterally, with RLE cast in place Objective Labs Result Diagrams: 12/28/21 13:20 12/28/21 13:20 [facility] Medical History Asthma Chronic acquired lymphedema HTN (hypertension) Hyperlipidemia Morbid obesity with body mass index (BMI) of 40.0 to 49.9 Obstructive sleep apnea (04/03/20) Family History Family/Other Obesity Hypertension Diabetes mellitus Heart disease Dementia Social History household members: none Smoking Status: Never smoker Assessment & Plan Assessment & Plan narrative: 61-year-old male admitted to the hospital with morbid obesity, type 2 DM, hypertension, asthma, obstructive sleep apnea, history of stroke, who presents with a right ankle fracture/dislocation after a mechanical fall. 1. Right ankle fracture, non-operative * Patient has suffered a distal fibular fracture, and medial malleolar fracture which has been reduced and splinted * Given his significant morbid obesity he will be unable to transfer given the fracture right ankle * Appreciate orthopedic surgery re-evaluating patient, as he has remained inpatient due to difficult placement 2. Type 2 DM * Insulin sliding scale inpatient * Home glimeperide 4 mg daily on-board 3. Morbid obesity, class 3 * This clearly had a significant impact on his morbidity, as his obesity likely is the cause of the right ankle fracture which is resulting in his inability to move and pivot at this point 4. Hypertension * Continue home carvedilol 25 mg bid, patient reports he no longer takes lisinopril, and is unsure why 5. Obstructive sleep apnea * Patient denies use of CPAP at home 6. Sacral decubitus ulcer, stage III/IV * Given his significant obesity, and inability to move this is problematic as he is at high risk for further skin breakdown 7. Elephantiasis, secondary to chronic lymphedema * Chronic, continue his usual wound dressing 8. Intertrigo, likely Lanie, affecting many folds * Will start topical clotrimazole/betamethasone * Will start PO Diflucan 150 mg once weekly for 4 weeks (started December 25, 2021) 9. Asthma, likely made worse by copious marijuana use * Continue the albuterol inhaler, as needed 10. Insomnia * Continue home trazodone 50 mg daily * Nightly Benadryl 50 mg, as needed VTE prophylaxis: Lovenox 40 mg daily Time Spent With Patient Critical Care time: I spent a total of [] minutes of critical care time on this patient's care today; this time is exclusive of procedural time.
[2022-01-09] MEDS: OXYCODONE IR 5 MG TABLET PO ×2 (14:11→20:23)
--- NOTE | 2022-01-09 14:27 | PC.NURSE ---
Pt condition essentially unchanged. SpO2 97% RA STAR ML intact/patent. CBG AC 176 & 188; pt refusing S/S insulin Dr. Naranjo here to change RLE dsg Sat in chair for 1.5hrs this afternoon. Med w/Oxycdcone @ 1415 Call light w/in reach, bed alarm on for pt safety. Continue w/plan of care.
[2022-01-09] MEDS: INSULIN LISPRO 100 UNIT/ML 3ML VIAL SUBCUT ×2 (16:59→20:23)
[2022-01-09 19:45] VITALS: PULSE 90; RESP 20; O2SAT 94
[2022-01-09 20:00] VITALS: BP 114/66; PULSE 76; RESP 18; TEMP 36.5; O2SAT 94
[2022-01-09] MEDS: diphenhydrAMINE 25 MG TABLET 50 MG PO (20:12)
[2022-01-09] MEDS: ACETAMINOPHEN 325 MG TABLET 650 MG PO (20:13)
[2022-01-09] MEDS: ATORVASTATIN 20 MG TABLET PO (20:14)
[2022-01-09 20:15] VITALS: BP 120/81; PULSE 90
[2022-01-09] MEDS: TRAZODONE 50 MG TABLET PO (20:15)
[2022-01-09] MEDS: SIMETHICONE 80 MG TABLET PO (23:54)
[2022-01-10] MEDS: ACETAMINOPHEN 325 MG TABLET 650 MG PO (02:08)
[2022-01-10] MEDS: OXYCODONE IR 5 MG TABLET PO ×2 (02:08→20:34)
--- NOTE | 2022-01-10 03:03 | PC.NURSE ---
Pt condition unchanged and was asleep most of the shift. Pt complained about not being informed about discontinuing Benadryl scheduled for 0000. This nurse was unable to assess pt posterior skin due to pt refusal to be turned with or without assistance. At 0200, pt woke up and reports pain in his right foot and back at 8 on 0 to 10 scale. Tylenol and percolone was given by this nurse per pt request. Unable to reassess pain due to pt sleeping.
--- NOTE | 2022-01-10 07:51 | CM.DPC ---
Addendum entered by Vanna Pugh R.N. 01/10/22 10:19: Discussed patient during team rounds. He did have an orthopedic consult with Dr. Martinez yesterday. The plan is for patient to have a surgical procedure, a pin in his ankle. At first, patient did not want, but changed his mind and does want to have procedure. It is currently unclear at this time if this will change his weight bearing status, and if he may be able to work with P.T. again. Procedure will not be able to happen until next week. Have not yet heard back from Jennifer at [facility], will follow up. Original Note: DCP Cont: Left a message with patient's counseling case manager at [facility], Jennifer. Last conversation that this DC business planner and her had was on Thu, and she indicated that she was going to reach out to her healthcare manager, Hugo Sr, who may be reaching out to this DC business planner about placement. Jennifer stated that if Hugo did not call, to call her back on Thursday and let her know, and this DC business planner left her this message. In the message, reminded her about challenges of placement for this individual due to extensive wound care needs and non-weight bearing status as well as him being a bariatric placement. Reminded her that patient is medically stable, and in need of some assistance in placing this individual. P: DCP will follow up again with Jennifer today. Most facilities have been contacted outside of this area, including the hospitals that were once taking COVID patients. [facility] was emailed the referral, but their faculty administrator, Nani, is not in until next week. [facility] has declined patient due to his not having mental health needs. Vanna Pugh RN/Gas Plant Worker
[2022-01-10 08:00] VITALS: BP 134/63; PULSE 76; RESP 18; TEMP 36.4; O2SAT 93
[2022-01-10] MEDS: INSULIN LISPRO 100 UNIT/ML 3ML VIAL SUBCUT ×4 (08:44→20:31)
[2022-01-10] MEDS: PANTOPRAZOLE DR 20 MG TABLET PO (08:46)
[2022-01-10] MEDS: GLIMEPIRIDE 2 MG TABLET 4 MG PO (08:46)
[2022-01-10 08:49] VITALS: BP 134/73; PULSE 76
[2022-01-10] MEDS: carvediloL 12.5 MG TABLET 25 MG PO ×2 (08:49→20:29)
[2022-01-10] MEDS: ENOXAPARIN 40 MG/0.4 ML SYRINGE SUBCUT ×2 (08:52→20:30)
[2022-01-10] MEDS: PSYLLIUM HUSK 1 PACKET PO ×2 (08:52→20:30)
--- NOTE | 2022-01-10 09:03 | P.PN_ITS ---
Subjective Subjective Interval history: Patient endorses feeling well this morning. He reports eating and drinking OK, along with no issues with urination/defecation. As of now, he wishes to proceed with the surgery that orthopedics discussed with him yesterday. He also endorses wanting a Benadryl 50 mg at around midnight to help him sleep, as he takes at home, along with an earlier Benadryl. He reports he's gotten used to this regimen over the past 2 years. Exam Vital Signs (past 8 hours): - 01/10/22 08:00 01/10/22 08:49 Temperature 97.6 F Pulse Rate 76 76 Respiratory Rate 18 Blood Pressure 134/63 134/73 Pulse Oximetry 93 Oxygen Delivery Method Room Air Oxygen Flow Rate 0 Narrative Exam Narrative: Const Other: Patient is laying in bed comfortably upon my entering the room, watching TV, and does not appear in acute distress, large body habitus noted HENMT Other: Bluish discoloration of lips noted Eyes Other: No scleral icterus appreciated Neck Other: Wide circumference neck noted Resp Other: Faint inspiratory scattered wheezes appreciated, no other adventitous breath sounds noted Cardio Other: RRR, S1 and S2 heart sounds normal, no extra heart sounds or murmurs appreciated GI Other: Soft, non-distended, non-tender, bowel sounds present Extrem Other: Bilateral lymphedema noted, with overlying skin changes consistent with chronic lymphedema, palpable dorsalis pedis pulses bilaterally, with RLE cast in place Objective Labs Result Diagrams: 12/28/21 13:20 12/28/21 13:20 [facility] Medical History (Updated 01/09/22 @ 16:59 by Marlin Martinez MD) Asthma Chronic acquired lymphedema HTN (hypertension) Hyperlipidemia Morbid obesity with body mass index (BMI) of 40.0 to 49.9 Obstructive sleep apnea (04/03/20) Family History Family/Other Obesity Hypertension Diabetes mellitus Heart disease Dementia Social History household members: none Smoking Status: Never smoker additional social history: Had lived independently but failure to thrive and care deficits. Smoking 18 g of marijuana daily Assessment & Plan Assessment & Plan narrative: 61-year-old male admitted to the hospital with morbid obesity, type 2 DM, hypertension, asthma, obstructive sleep apnea, history of stroke, who presents with a right ankle fracture/dislocation after a mechanical fall. 1. Right ankle fracture, non-operative * Patient has suffered a distal fibular fracture, and medial malleolar fracture which has been reduced and splinted * Given his significant morbid obesity he will be unable to transfer given the fracture right ankle * Appreciate orthopedic surgery re-evaluating patient, as he has remained inpatient due to difficult placement 2. Type 2 DM * Insulin sliding scale inpatient * Home glimeperide 4 mg daily on-board 3. Morbid obesity, class 3 * This clearly had a significant impact on his morbidity, as his obesity likely is the cause of the right ankle fracture which is resulting in his inability to move and pivot at this point 4. Hypertension * Continue home carvedilol 25 mg bid, patient reports he no longer takes lisinopril, and is unsure why 5. Obstructive sleep apnea * Patient denies use of CPAP at home 6. Sacral decubitus ulcer, stage III/IV * Given his significant obesity, and inability to move this is problematic as he is at high risk for further skin breakdown 7. Elephantiasis, secondary to chronic lymphedema * Chronic, continue his usual wound dressing 8. Intertrigo, likely Lanie, affecting many folds * Will start topical clotrimazole/betamethasone * Will start PO Diflucan 150 mg once weekly for 4 weeks (started December 25, 2021) 9. Asthma, likely made worse by copious marijuana use * Continue the albuterol inhaler, as needed 10. Insomnia * Continue home trazodone 50 mg daily * Nightly Benadryl 50 mg, as needed, along with Benadryl 50 mg at midnight VTE prophylaxis: Lovenox 40 mg daily Time Spent With Patient Critical Care time: I spent a total of [] minutes of critical care time on this patient's care today; this time is exclusive of procedural time.
[2022-01-10 10:30] VITALS: PULSE 77; RESP 20; O2SAT 95
[2022-01-10 15:17] LABS: COVID19 -Nasal RAPID Negative (Negative)
[2022-01-10 19:39] VITALS: BP 126/71; PULSE 79; RESP 18; TEMP 36.6; O2SAT 94
[2022-01-10] MEDS: TRAZODONE 50 MG TABLET PO (20:28)
[2022-01-10] MEDS: ATORVASTATIN 20 MG TABLET PO (20:28)
[2022-01-10] MEDS: diphenhydrAMINE 25 MG TABLET 50 MG PO (20:28)
[2022-01-11] MEDS: diphenhydrAMINE 25 MG TABLET 50 MG PO ×3 (00:04→23:40)
[2022-01-11] MEDS: ACETAMINOPHEN 325 MG TABLET 650 MG PO ×3 (00:04→22:35)
[2022-01-11 00:33] VITALS: O2SAT 98
[2022-01-11 07:00] VITALS: BP 132/95; PULSE 79; RESP 19; TEMP 36.9; O2SAT 94
[2022-01-11 07:47] VITALS: BP 132/95; PULSE 79
[2022-01-11] MEDS: PANTOPRAZOLE DR 20 MG TABLET PO (07:47)
[2022-01-11] MEDS: carvediloL 12.5 MG TABLET 25 MG PO ×2 (07:47→20:07)
[2022-01-11] MEDS: INSULIN LISPRO 100 UNIT/ML 3ML VIAL SUBCUT ×3 (07:47→16:39)
[2022-01-11] MEDS: PSYLLIUM HUSK 1 PACKET PO (07:47)
[2022-01-11] MEDS: GLIMEPIRIDE 2 MG TABLET 4 MG PO (07:47)
[2022-01-11] MEDS: OXYCODONE IR 5 MG TABLET PO ×2 (07:48→20:08)
[2022-01-11] MEDS: ENOXAPARIN 40 MG/0.4 ML SYRINGE SUBCUT (07:51)
[2022-01-11] MEDS: FLUCONAZOLE 100 MG TABLET 150 MG PO (07:51)
--- NOTE | 2022-01-11 09:10 | CM.DPC ---
DCP continued: Patient agreed to under go ortho surgery to provide more stability to right ankle on Thursday morning this will allow for immediate weight bearing status which will help with preventing skin breakdown and the ability for the patient to continue to work on being more mobile with the option of going home with [facility], 160 hours a month of [facility] care givers more of a safe DC plan. As well as continuing to look for SNF and RESIDENTIAL placements for this patient. CM will call [facility] to check on referrals. Shanita Lucas RNbartender manager
--- NOTE | 2022-01-11 10:29 | P.PN_ITS ---
Subjective Subjective Date Patient Seen: 01/11/22 Time Patient Seen: 10:30 Interval history: Patient reports he is feeling well this morning. No new complaints. No questions regarding his upcoming surgery. Exam Vital Signs (past 8 hours): - 01/11/22 07:00 01/11/22 07:47 Temperature 98.4 F Pulse Rate 79 79 Respiratory Rate 19 Blood Pressure 132/95 H 132/95 H Pulse Oximetry 94 Oxygen Delivery Method Room Air Oxygen Flow Rate 0 Narrative Exam Narrative: Bilateral lymphedema noted, with overlying skin changes consistent with chronic lymphedema, with RLE splint in place Const General: cooperative Nutritional Appearance: obese Orientation: alert Resp Effort & Inspection: normal respiratory effort and able to speak in complete sentences Objective Labs Result Diagrams: 12/28/21 13:20 12/28/21 13:20 Labs: Laboratory Results - last 24 hr 01/10/22 13:07 SARS-CoV-2 (PCR) Negative ON [facility] Medical History Asthma Chronic acquired lymphedema HTN (hypertension) Hyperlipidemia Morbid obesity with body mass index (BMI) of 40.0 to 49.9 Obstructive sleep apnea (04/03/20) Family History Family/Other Obesity Hypertension Diabetes mellitus Heart disease Dementia Social History household members: none Smoking Status: Never smoker additional social history: Had lived independently but failure to thrive and care deficits. Smoking 18 g of marijuana daily Assessment & Plan Assessment & Plan narrative: Per Dr. Martinez: Patient has decided he would like to proceed with surgery.? The stability will allow immediate weight-bearing and for skin care This is then scheduled for Thursday morning 8:00 a.m. Will need to be NPO after midnight on Thursday night The risks and benefits of the procedure have been discussed with the patient even opportunity to ask questions.? The risks of surgery include but are not limited to infection, malunion, nonunion, persistence of pain, damage to nerves and blood vessels, posttraumatic arthritis, DVT, PE, cardiopulmonary complications and .? The patient expressed a thorough understanding of the risks and benefits of surgery and has elected to proceed.? Consent was signed. Planned procedure:? Right hindfoot nail for unstable right ankle fracture dislocation Time Spent With Patient Time with patient: less than 30 minutes Critical Care time: I spent a total of [] minutes of critical care time on this patient's care today; this time is exclusive of procedural time.
--- NOTE | 2022-01-11 13:03 | P.PN_ITS ---
Subjective Subjective Date Patient Seen: 01/11/22 Interval history: 61-year-old male admitted to the hospital with a left ankle fracture. Patient is seen by Orthopedic surgery. He would like to proceed to operative treatment. Plans underway for surgical repair on Thursday. Patient reports he is not hypothyroid. Does not take thyroid medication at home. Exam Vital Signs (past 8 hours): - 01/11/22 07:00 01/11/22 07:47 Temperature 98.4 F Pulse Rate 79 79 Respiratory Rate 19 Blood Pressure 132/95 H 132/95 H Pulse Oximetry 94 Oxygen Delivery Method Room Air Oxygen Flow Rate 0 Narrative Exam Narrative: Blood pleasant male sitting in a chair Resp Other: Lungs clear to auscultation Cardio Other: Cardiac exam: Regular rate and rhythm normal S1-S2 GI Other: Abdomen soft nontender Extrem Other: Bilateral lymphedema Objective Labs Result Diagrams: 12/28/21 13:20 12/28/21 13:20 Labs: Laboratory Results - last 24 hr 01/10/22 13:07 SARS-CoV-2 (PCR) Negative [facility] Medical History Asthma Chronic acquired lymphedema HTN (hypertension) Hyperlipidemia Morbid obesity with body mass index (BMI) of 40.0 to 49.9 Obstructive sleep apnea (04/03/20) Family History Family/Other Obesity Hypertension Diabetes mellitus Heart disease Dementia Social History household members: none Smoking Status: Never smoker additional social history: Had lived independently but failure to thrive and care deficits. Smoking 18 g of marijuana daily Assessment & Plan Assessment & Plan narrative: Right ankle fracture, * Patient has suffered a distal fibular fracture, and medial malleolar fracture which has been reduced and splinted * Given his significant morbid obesity he will be unable to transfer given the fracture right ankle * Appreciate orthopedic surgery re-evaluating patient, as he has remained inpatient due to difficult placement\ * Plans underway for definitive surgery next Thursday 2. Type 2 DM * Insulin sliding scale inpatient * Home glimeperide 4 mg daily on-board 3. Morbid obesity, class 3 * This clearly had a significant impact on his morbidity, as his obesity likely is the cause of the right ankle fracture which is resulting in his inability to move and pivot at this point * His obesity is his rate limiting factor for discharge either home or to alf 4. Hypertension * Continue home carvedilol 25 mg bid, patient reports he no longer takes lisinopril, and is unsure why 5. Obstructive sleep apnea * Patient denies use of CPAP at home 6. Sacral decubitus ulcer, stage III/IV * Given his significant obesity, and inability to move this is problematic as he is at high risk for further skin breakdown 7. Elephantiasis, secondary to chronic lymphedema * Chronic, continue his usual wound dressing 8. Intertrigo, likely Lanie, affecting many folds * Will start topical clotrimazole/betamethasone * Will start PO Diflucan 150 mg once weekly for 4 weeks (started December 25, 2021) 9. Asthma, likely made worse by copious marijuana use * Continue the albuterol inhaler, as needed 10. Insomnia * Continue home trazodone 50 mg daily * Nightly Benadryl 50 mg, as needed, along with Benadryl 50 mg at midnight 11. Hypothyroidism, patient reports he is not on levothyroxine Will check his TSH level in adjust accordingly Time Spent With Patient Critical Care time: I spent a total of [] minutes of critical care time on this patient's care today; this time is exclusive of procedural time.
[2022-01-11] MEDS: DOCUSATE 100 MG CAPSULE 200 MG PO (13:43)
--- NOTE | 2022-01-11 13:55 | PC.NURSE ---
Patient condition essentially unchanged, Patient off/on sleeping most of day. Declined Stool softners this AM but asking for them this afternoon. Rates pain 04/06 but req. to take only Tylenol for treatment. Dressings were changed by provider on 01/09 per note.
[2022-01-11] MEDS: ONDANSETRON 4 MG ODT SL (16:39)
[2022-01-11 20:07] VITALS: BP 143/74; PULSE 79
[2022-01-11] MEDS: ATORVASTATIN 20 MG TABLET PO (20:07)
[2022-01-11] MEDS: TRAZODONE 50 MG TABLET PO (20:08)
[2022-01-11 20:14] VITALS: BP 143/74; PULSE 80; RESP 18; TEMP 36.6; O2SAT 94
[2022-01-11 20:49] VITALS: BP 118/58; PULSE 81
[2022-01-12] VITALS (7 sets, daily range): BP systolic 114–138; BP diastolic 58–80; PULSE 81–92; RESP 18–19; TEMP 36.1–36.7; O2SAT 94–98
--- NOTE | 2022-01-12 01:18 | PC.NURSE ---
Late Entry: Pt refused bowel medication, Lovenox, and 1 unit Insulin for BG of 234. Pt was educated on importance of medication, abhinav insulin, but still declined and stated he normally skips insulin if it is only 1 unit.
[2022-01-12] MEDS: OXYCODONE IR 5 MG TABLET PO ×4 (02:07→23:45)
[2022-01-12] MEDS: ENOXAPARIN 40 MG/0.4 ML SYRINGE SUBCUT ×2 (07:46→20:06)
[2022-01-12] MEDS: carvediloL 12.5 MG TABLET 25 MG PO ×2 (07:46→20:06)
[2022-01-12] MEDS: GLIMEPIRIDE 2 MG TABLET 4 MG PO (07:47)
[2022-01-12] MEDS: PANTOPRAZOLE DR 20 MG TABLET PO (07:48)
[2022-01-12] MEDS: polyethylene glycoL 3350 17 GM POWD.PACK PO (07:49)
[2022-01-12] MEDS: INSULIN LISPRO 100 UNIT/ML 3ML VIAL SUBCUT ×3 (07:51→16:43)
--- NOTE | 2022-01-12 09:10 | P.PN_ITS ---
Subjective Subjective Date Patient Seen: 01/12/22 Time Patient Seen: 09:10 Interval history: Patient reports he is comfortable, awaiting surgery tomorrow. Exam Vital Signs (past 8 hours): - 01/12/22 07:00 01/12/22 07:46 Temperature 97 F L Pulse Rate 92 H 81 Respiratory Rate 19 Blood Pressure 114/80 118/58 L Pulse Oximetry 94 Oxygen Delivery Method Room Air Oxygen Flow Rate 0 Narrative Exam Narrative: Bilateral foot dressings are intact. Splint is intact on the right. Objective Labs Result Diagrams: 12/28/21 13:20 12/28/21 13:20 Labs: Laboratory Results - last 24 hr 01/11/22 14:16 TSH 4.70 H [facility] Medical History Asthma Chronic acquired lymphedema HTN (hypertension) Hyperlipidemia Morbid obesity with body mass index (BMI) of 40.0 to 49.9 Obstructive sleep apnea (04/03/20) Family History Family/Other Obesity Hypertension Diabetes mellitus Heart disease Dementia Social History household members: none Smoking Status: Never smoker additional social history: Had lived independently but failure to thrive and care deficits. Smoking 18 g of marijuana daily Assessment & Plan Assessment & Plan narrative: The patient is a morbidly obese gentleman with diabetes and chronic lymphedema with a right ankle fracture. He is to be taken to the operating room for retrograde nail for hindfoot fusion and treatment of the ankle fracture by our foot and ankle specialist Dr. Martinez. He is aware he is NPO after midnight. Preoperative antibiotics will be ordered in the operating room. Time Spent With Patient Critical Care time: I spent a total of [] minutes of critical care time on this patient's care today; this time is exclusive of procedural time.
--- NOTE | 2022-01-12 17:29 | P.PN_ITS ---
Subjective Subjective Date Patient Seen: 01/12/22 Interval history: 61-year-old male with morbid obesity here with a left ankle fracture. Patient is scheduled for definitive operative repair tomorrow. He has no complaints of pain. He is not short of breath. Exam Vital Signs (past 8 hours): Oxygen Delivery Method Room Air Oxygen Flow Rate 0 Narrative Exam Narrative: Pleasant obese male lying in bed in no obvious distress Resp Other: Lungs clear to auscultation Cardio Other: Cardiac exam: Regular rate and rhythm normal S1-S2 GI Other: Abdomen soft nontender nondistended Extrem Other: Significant lymphedema, with chronic venous stasis changes of both lower extremities left worse than right Objective Labs Result Diagrams: 12/28/21 13:20 12/28/21 13:20 [facility] Medical History Asthma Chronic acquired lymphedema HTN (hypertension) Hyperlipidemia Morbid obesity with body mass index (BMI) of 40.0 to 49.9 Obstructive sleep apnea (04/03/20) Family History Family/Other Obesity Hypertension Diabetes mellitus Heart disease Dementia Social History household members: none Smoking Status: Never smoker additional social history: Had lived independently but failure to thrive and care deficits. Smoking 18 g of marijuana daily Assessment & Plan Assessment & Plan narrative: Right ankle fracture, * Patient has suffered a distal fibular fracture, and medial malleolar fracture which has been reduced and splinted * Given his significant morbid obesity he will be unable to transfer given the fracture right ankle * Appreciate orthopedic surgery re-evaluating patient, as he has remained inpatient due to difficult placement\ * Plans underway for definitive surgery next Thursday 2. Type 2 DM * Insulin sliding scale inpatient * Home glimeperide 4 mg daily on-board 3. Morbid obesity, class 3 * This clearly had a significant impact on his morbidity, as his obesity likely is the cause of the right ankle fracture which is resulting in his inability to move and pivot at this point * His obesity is his rate limiting factor for discharge either home or to correction 4. Hypertension * Continue home carvedilol 25 mg bid, patient reports he no longer takes lisinopril, and is unsure why 5. Obstructive sleep apnea * Patient denies use of CPAP at home6. Sacral decubitus ulcer, stage III/IV * Given his significant obesity, and inability to move this is problematic as he is at high risk for further skin breakdown 7. Elephantiasis, secondary to chronic lymphedema * Chronic, continue his usual wound dressing 8. Intertrigo, likely Lanie, affecting many folds * Will start topical clotrimazole/betamethasone * Will start PO Diflucan 150 mg once weekly for 4 weeks (started December 25, 2021) 9. Asthma, likely made worse by copious marijuana use * Continue the albuterol inhaler, as needed 10. Insomnia * Continue home trazodone 50 mg daily * Nightly Benadryl 50 mg, as needed, along with Benadryl 50 mg at midnight 11. Hypothyroidism, patient reports he is not on levothyroxine Will check his TSH level in adjust accordingly TSH came back 4.7, discontinue L-thyroxine, will need repeat TSH ultimate Patient is likely clear to proceed for definitive repair of the left ankle tomorrow morning. Time Spent With Patient Critical Care time: I spent a total of [] minutes of critical care time on this patient's care today; this time is exclusive of procedural time.
[2022-01-12] MEDS: diphenhydrAMINE 25 MG TABLET 50 MG PO ×2 (20:06→23:45)
[2022-01-12] MEDS: TRAZODONE 50 MG TABLET PO (20:06)
[2022-01-12] MEDS: ATORVASTATIN 20 MG TABLET PO (20:06)
[2022-01-12] MEDS: PSYLLIUM HUSK 1 PACKET PO (20:07)
[2022-01-13] VITALS (16 sets, daily range): BP systolic 95–145; BP diastolic 62–86; PULSE 73–98; RESP 12–19; TEMP 35.8–36.7; O2SAT 90–97; BMI 51.4
[2022-01-13] MEDS: NYSTATIN CREAM 30 GM 1 APPLIC TOP (00:30)
[2022-01-13] MEDS: TRIAMCINOLONE 0.025% CREAM 1 APPLIC TOP (00:30)
[2022-01-13 05:19] LABS: Add Manual Diff / Slide Review NO; Basophils Absolute Auto 100 /uL (0-100); Basophils Percent Auto 1.3 % (0-2); Eosinophils Absolute Auto 100 /uL (0-450); Eosinophils Percent Auto 1.4 % (2-4); Hematocrit 34.1 % (41-53); Hemoglobin 11.1 g/dL (13.5-17.5); Lymphocytes Absolute Auto 1800 /uL (1100-4500); Lymphocytes Percent Auto 18.3 % (25-40); Mean Corpuscular HGB Conc 32.5 % (30-36); Mean Corpuscular Hemoglobin 23.7 PG (26-34); Mean Corpuscular Volume 72.8 fL (80-100); Monocytes Absolute Auto 600 /uL (0-900); Monocytes Percent Auto 5.8 % (3-14); Neutrophils Absolute Auto 7300 /uL (1500-7000); Neutrophils Percent Auto 73.2 % (50-75); Platelet Count 232 X10^3/uL (150-400); Red Blood Cell Count 4.69 X10^6/uL (4.5-5.9); Red Cell Distribution Width 17.6 % (11.6-14.8); White Blood Cell Count 9.9 X10^3/uL (4.5-11.0)
[2022-01-13 05:46] LABS: Alanine Aminotransferase 37 IU/L (<50); Albumin 3.4 g/dL (3.5-5.0); Albumin Globulin Ratio 1.1 (1.0-2.8); Alkaline Phosphatase 114 U/L (38-126); Aspartate Aminotransferase 23 IU/L (17-59); BUN Creatinine Ratio 20.7 (6-22); Bilirubin Total 0.4 mg/dL (0.2-1.3); Blood Urea Nitrogen 19 mg/dL (9-20); Calcium 8.6 mg/dL (8.4-10.2); Carbon Dioxide 31 mmol/L (22-32); Chloride 104 mmol/L (98-107); Estimated Glomerular Filt Rate > 60 mL/min (>60); Globulin 3.1 g/dL (1.7-4.1); Glucose 191 mg/dL (70-100); HEMOLYSIS < 15 (0-50); Potassium 4.3 mmol/L (3.4-5.1); Sodium 139 mmol/L (137-145); Total Protein 6.5 g/dL (6.3-8.2)
--- NOTE | 2022-01-13 06:49 | PC.NURSE ---
Surgical Nurses came to get pt at 0650. Pt was transported down in bed.
[2022-01-13] MEDS: LACTATED RINGERS 1,000 ML 84 ML IV (07:10)
--- NOTE | 2022-01-13 07:11 | PM.PREOP ---
Pre-operative Note COVID-19 COVID-19 status: Negative Result date/Date tested (Pos, Neg/Pending): 01/10/22 Criteria for continued procedure: Increased loss of function and Continuing or worsening of significant or severe pain Interval Note History & Physical reviewed/Exam performed by Physician: Yes Changes to H&P: No
[2022-01-13] MEDS: CEFAZOLIN 3 GM IN 0.9 % NACL 3 GM/100 ML PLAST..BAG IV ×3 (08:05→23:41)
--- NOTE | 2022-01-13 08:44 | SUR.OPER ---
Supine on padded OR bed, head on pillow x 2, arms secured on pillow padded arm boards at <90 degrees abduction, legs uncrossed, safety belt at abdomen,. Bed extensions in place. Left leg bent at the knee and secured with tape over blanket to bed. Bump under right hip, and blanket bump under right foot. Hover mat in place underneath patient.
[2022-01-13] MEDS: BUPIVACAINE 0.25% (PF) 30 ML, EPINEPHrine 0.15 MG INJ (09:00)
--- NOTE | 2022-01-13 10:03 | DI.RAD.S_ITS ---
PROCEDURE: XR ANKLE RT MIN 3V INDICATIONS: HINDFOOT ARTHRODESIS NAIL RIGHT ANKLE TECHNIQUE: 13 intraoperative fluoroscopic views of the ankle were acquired. COMPARISON: Located Within [facility], , XR ANKLE RT MIN 3V, 01/09/2022, 10:01. FINDINGS: Intraoperative fluoroscopic images of right foot shows arthrodesis of tibiotalar and subtalar joints with long intramedullary nina and multiple fixation screws in place. Long surgical screw is also seen extending along the length of calcaneus. Ankle alignment is near anatomic. IMPRESSION: Fluoro guidance was provided intraoperatively for hindfoot arthrodesis. Dictated by: Thomas Rogers M.D. on 01/13/2022 at 11:08 Approved by: Tohmas Rogers M.D. on 01/13/2022 at 11:10
[2022-01-13] MEDS: VANCOMYCIN 1,000 MG VIAL 1000 MG TOP (10:05)
[2022-01-13] MEDS: fentaNYL 100 MCG/2 ML INJ IV ×2 (10:57→11:02)
[2022-01-13] MEDS: OXYCODONE/ACETAMINOPHEN 5/325 TABLET 1 TAB PO ×2 (10:58→11:34)
--- NOTE | 2022-01-13 10:58 | PM.OP.1 ---
Operative Date/Time/Diagnoses Date of procedure: 01/13/22 Time of procedure: 08:00 Pre-op diagnosis: 1. displaced right trimalleolar ankle fracture dislocation 2. Morbid obesity BMI 51 3. Chronic lymphedema, severe Post-op diagnosis: same Procedure & Clinicians Procedure: 1. Treatment of right ankle fracture dislocation with intramedullary nina,Arthrodesis right ankle CPT code 48425 2. Subtalar arthrodesis CPT code 70281 Same procedure as scheduled: Yes Indications: Patient is a 61-year-old male with multiple medical comorbidities. He has a history of hemiparesis on the left side and severe chronic lymphedema, elephantiasis affecting bilateral lower extremity left greater than right. His right side is his good side which she uses for transfer and limited weight-bearing. He sustained a right ankle fracture dislocation. To his poor skin, complex social situation and comorbidities he has been unable to be treated in the traditional open reduction internal fixation of fashion for ankle fractures due to risks of wound infection and ulceration. He has also been unable to be placed due to his complex situation. He was indicated for stabilization using a hindfoot nina to minimize hardware prominence provide immediate stability and use for weight-bearing and transfers on the operative extremity. This would also allow continued necessary skin care for his complex skin conditions and reduce the risk of skin complications with bracing or casting. He is otherwise of low demand and has been indicated for hindfoot fixation with the nina. Discussed the goal of the procedure is to restore alignment and stability. The object of this procedure is not solid arthrodesis and the joints were not formally be prepped as a way to reduce morbidity of the procedure. Risks benefits and alternatives to the procedure were discussed in depth with the patient and via telephone with his sister. Literature was provided to the patient on the procedure and to provide images. The risks and benefits of the procedure have been discussed with the patient even opportunity to ask questions. The risks of surgery include but are not limited to infection, malunion, nonunion, persistence of pain, damage to nerves and blood vessels, posttraumatic arthritis, DVT, PE, cardiopulmonary complications and . The patient expressed a thorough understanding of the risks and benefits of surgery and has elected to proceed. Consent was signed. Surgeon: Marlin Martinez Click Yes if Unassisted: Yes Anesthesia Type: General and Local Operative Notes Findings: Displaced ankle fracture dislocation. Closed reduction was performed improving the mortise alignment. A K-wire was then used percutaneously to pin the medial malleolus and place and hold alignment. Guidewires for the nina were then placed and The hindfoot nina was then inserted once this was placed compression was done through the tibiotalar joint to help maintain alignment after the proximal locking screws were placed and the final calcaneal screws were placed in the standard fashion. Closure Type: primary Specimen(s): none sent Prosthetic devices, grafts, tissues, transplants, or devices: castaclip T2 hindfoot nail 200 mm by 12 mm. talus screw 45 mm, tibial screws 32.5 mm, calcaneal screws 45 mm and 75 mm Estimated Blood Loss (mL): 100 Blood products transfused: none Tourniquet time (min): 80 Procedure in detail: Patient was seen in the preoperative holding area and the appropriate limb and side of surgery was marked. The consent form was confirmed the patient final questions answered. Patient was then brought back to the operating room and placed on the operating table. A postoperative regional block was performed by the anesthesia team. The patient was then given an anesthetic and the airway was secured. Prophylactic IV antibiotics were administered. the patient was appropriately positioned and padded. All bony prominences were well-padded. A ipsilateral thigh bump was placed. A well-padded thigh tourniquet was placed on the operative extremity. Formal time-out procedure was performed confirming the patient's side and site of surgery presence of informed consent and administration of appropriate preoperative antibiotics. All were in agreement and the appropriate implants were present. This was the right lower extremity. An Esmarch bandage was utilized to exsanguinate the limb and the tourniquet was released on the thigh to 250 mm of mercury. This stayed up for approximately 80 minutes and not reinflated. C-arm was brought in and the alignment of the ankle was checked. Reduction maneuver for the ankle fracture was completed and a 062 K-wire was used to percutaneously pin the medial malleolus in place helping to maintain the reduction. Next a guidewire was placed along the tibia in the lateral and the heel in the axial views and the insertion site on the bottom of the foot was planned out. Again no formal joint prep was planned due to this patient's particular poles and needs. Fluoroscopy unit was brought in to localize the starting point for the hindfoot nail. An a line drawn from the lateral tibial canal and the lateral one 3rd of the foot were inspected to establish thel starting point Once the starting point was determined on multiple views we placed a guidewire in our proposed location located centrally within the calcaneus talus and tibia. the plantar incision was then extended approximately 3 cm longitudinally to allow for the soft tissue protector. Then used our step starter drill into the calcaneus and talus in a crossed the distal aspect of the tibia. the guidewire was removed and exchanged for a ball-tipped guidewire. We then sequentially reamed starting at 9 to 13.5 for an 12 nail. The ball-tipped wire was exchanged for the straight wire and [place] T2 12 x 200 mm TTC nail was placed. rotation was set appropriately with the P to A wire. We maintained our alignment of the ankle and subtalar joints and progressive placed our screws in the nina. Small incisions were made for the appropriate screw sites. The talar screw was placed 1st followed by the 2 medial tibial shaft screws. We then compressed the tibiotalar joint with the in coronal compression device. This compressed the tibiotalar joint nicely and was guided on fluoroscopy. The subtalar joint was not otherwise compressed. We then placed the lateral calcaneal screw. the P to A calcaneal screw was also placed in the standard fashion and countersunk. We were satisfied with our fixation and alignment. fluoroscopic images looked excellent. The guide was removed, the wounds were irrigated and vancomycin powder was placed in the wound as a infection deterrent due to the patient's multiple medical comorbidities and closed with 2 0 Vicryl and 2 0 nylon. Closure was noted the skin of this patient was extremely friable and very easily tearing expected Ali at the more proximal medial incision for the tibial interlocking screws, so limited skin closure with nylon completed. Dressings were placed with Xeroform cushion to adhesive dressings, ABD pads, Webril and Gurpreet wraps. Patient was woken from anesthesia and taken to recovery room in good condition. There no immediate complications with this procedure. All counts were correct. Complications: none Post-operative Condition: stable Disposition: PACU Plan for aftercare: May be weightbear as tolerated on the operative extremity in the soft dressing. Dressing may be changed to reinforced as indicated. The extremity as needed but no showers or soaking of the incisions. Sutures will remain in place 2-4 weeks. Should follow-up with Dr. Martinez in Orthopedic office in 2-4 weeks for suture removal. Will resume Lovenox for DVT prophylaxis while in the hospital
[2022-01-13] MEDS: INSULIN REGULAR 100 UNIT/ML 3 ML VIAL SUBCUT (11:03)
--- NOTE | 2022-01-13 11:50 | PC.NURSE ---
Patient to floor from PACU post right ankle surgery, alert and oriented, on 2LO2 per NC for 89-90% spo2 on room air, per PACU nurse. LS clear, dim to bases bilaterally, HRR, BT +, abdomen nontender to palpation. Patient says, I'm so hungry. I want to eat! Patient is morbidly obese with left side flaccid from previous CVA. 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 Right lower extremity dressing with DONA CDI. VSS.
--- NOTE | 2022-01-13 12:12 | SUR.PHASEI ---
DENTURES LABELED AND BACK TO ROOM UPON TRANSFER. BILATERAL DRSG'S IN PLACE - NO SCD'S APPLIED
--- NOTE | 2022-01-13 12:20 | DIET.PN1 ---
Dietary Progress Note Assessment: ONS Ray back in stock at , kitchen to send to pt bid to support wound healing. Ht: 175.26 cm Wt: 158 kg BMI: 51.4 UBW: Last BM: 01/12/22 (01/13/22 07:14) MNA: 13 Denis Score: 14 Diet: 01/13/22 Lunch Carbohydrate Consistent Diet Diet Modifications: ONS Ray bid Carbohydrate level: Medium (3 CHO) Nutrition Percent Meal Consumed 100% 01/12/22 17:36 Percent Meal Consumed 100% 01/12/22 09:33 Percent Meal Consumed 100% 01/11/22 18:00 Percent Meal Consumed 90% 01/11/22 12:47 Labs: RBC 4.69 X10^6/uL (4.5-5.9) 01/13/22 05:07 Hgb 11.1 g/dL (13.5-17.5) L 01/13/22 05:07 Hct 34.1 % (41-53) L 01/13/22 05:07 Creatinine 0.92 mg/dL (0.66-1.25) 01/13/22 05:07 Hemoglobin A1c 7.0 % (4.0-6.0) H 12/25/21 05:04 Electronically Signed by: Marilee Lind 01/13/22 12:20 Clinical Dietitian [address] [address]
[2022-01-13] MEDS: PSYLLIUM HUSK 1 PACKET PO ×2 (12:31→20:06)
[2022-01-13] MEDS: polyethylene glycoL 3350 17 GM POWD.PACK PO (12:31)
[2022-01-13] MEDS: carvediloL 12.5 MG TABLET 25 MG PO ×2 (12:32→20:09)
[2022-01-13] MEDS: DOCUSATE 100 MG CAPSULE 200 MG PO (12:33)
[2022-01-13] MEDS: GLIMEPIRIDE 2 MG TABLET 4 MG PO (12:33)
[2022-01-13] MEDS: PANTOPRAZOLE DR 20 MG TABLET PO (12:38)
[2022-01-13] MEDS: INSULIN LISPRO 100 UNIT/ML 3ML VIAL SUBCUT ×3 (12:40→20:13)
--- NOTE | 2022-01-13 14:28 | CM.DPC ---
Addendum entered by Vanna Pugh R.N. 01/13/22 14:47: Went ahead and left a message with Maritza, she was patient's [facility] manager of case. In the message, let her know that patient could possibly go home if he is weight bearing. He just had surgery this am, and will be working with P.T. This could change plan, for patient could possibly go home with [facility], [facility] program. Original Note: DCP Cont: Patient had his ankle surgery this am. He now has P.T. orders and will be working with them. This DC nurse discharge planner has attempted to get in touch with Jennifer, patient's Home and disease case manager rn, left another message. In her voice mail, she gave an alternate phone number to call on her case load, , left a message, not detailed, but in the message asked to have a manager of case call on this patient since there has been no response since last Thu. P: DCP to continue to follow. Will see how he does with P.T, for he may have more options of possible return home if increased care givers can be arranged, versus going to skilled under Medicare before going home. Vanna Pugh RN/Pharmacy Student
[2022-01-13] MEDS: ACETAMINOPHEN 325 MG TABLET 650 MG PO (15:01)
--- NOTE | 2022-01-13 16:54 | PT.IIE ---
Current Diagnoses Morbid (severe) obesity due to excess calories (12/28/21) Lymphedema, not elsewhere classified (12/28/21) Other fracture of right lower leg, initial encounter for closed fracture (12/28/21) Dislocation of right ankle joint, initial encounter (12/28/21) Body mass index [BMI] 50.0-59.9, adult (12/28/21) Surgery Performed Operation Date: 01/13/22 07:45 Actual Procedures p hindfoot arthrodesis nail ankle(Right) - Marlin Martinez MD Medical History (Last Reviewed 01/11/22 @ 10:36 by Denis Palencia PA-C) Asthma Chronic acquired lymphedema HTN (hypertension) Hyperlipidemia Morbid obesity with body mass index (BMI) of 40.0 to 49.9 Obstructive sleep apnea (04/03/20) Physical Therapy Inpatient Evaluation/Re-Eval M1 PT/OT-IP Prior Functional Status Start: 12/25/21 17:05 Freq: NEEDED Status: Active Protocol: Document 01/13/22 16:54 AW (Rec: 01/13/22 17:37 AW [id number]) Medical Review Prior Functional Status Medical History Reviewed Yes Communication Independent Mobility and Gait Daljit uses a SBQC to transfer to his power wc, toilet, and lift chair. Activities of Daily Living and IADL's Pt states was able to use creative art therapist and dressing stick to assist to get dressed while seated for his shorts. Pt states struggled to get his shirt on. Pt states lately has been incontinent. Prior Functional Level (Other details) PMH includes CVA with left hemiparesis, chronic BLE lymphedema, morbid obesity ( BMI>50), elephantiasis, type 2 diabetes, hypertension, hyperlipidemia, reactive airway disease, obstructive sleep apnea. Social History Household Members none Living Arrangements Apartment/Condo Number of Floors (Floors) One Floor Number of Stairs To Enter/Railing? Ramp to enter his apartment. Home Environment High Toilet,Walk in Shower Home Equipment Quad Cane,Power Wheelchair/ Scooter,Inter Fold Roll Cutter,Lift Recliner, Grab Bars Near Toilet,Grab Bars In Shower Additional Social History Comment Pt lives alone with caregiver support three days/week to assist with IADLs. Caregiver also wraps BLE for lymphedema management. M2 PT-IP Current Condition Start: 12/25/21 17:05 Freq: NEEDED Status: Active Protocol: Document 01/13/22 16:54 AW (Rec: 01/13/22 17:37 AW [id number]) Physical Therapy Current Condition Current Condition Evaluation Date 01/13/22 Treatment Diagnosis R trimalleolar ankle fx s/p IM nina; L hemiparesis; impaired mobility Onset Date 01/05/22 M3 PT-IP Subjective Start: 12/25/21 17:05 Freq: NEEDED Status: Active Protocol: Document 01/13/22 16:54 AW (Rec: 01/13/22 17:37 AW [id number]) Subjective Physical Therapy Visit Type Type Re-Evaluation Visit Start Time 16:21 Visit Stop Time 16:51 Total Visit Minutes 30 Notes Pt had surgery earlier today. Ortho updated WB status to WBAT RLE. Physical Therapy Visit Comments Patient Comments Pt requires some encouragement but is ultimately willing to attempt to stand. Therapy Pain Assessment Pain When Pain Assessed At Rest Pain Present Pain Present Pain Reported Location Right Ankle Intensity 10 Scale Used Numeric (0 - 10) Pain Management Techniques Distraction,Elevation,Re- positioning M4 PT-IP Mobility and Gait Start: 12/25/21 17:05 Freq: NEEDED Status: Active Protocol: Document 01/13/22 16:54 AW (Rec: 01/13/22 17:37 AW [id number]) PT-Bed Mobility Assessment Supine to Sit Supine to Sit Maximum Assistance,2 Person Assistance,Head of Bed Elevated Sit to Supine Sit to Supine Maximum Assistance,Total Assistance,2 Person Assistance Scooting Scooting to Edge of Bed Maximum Assistance Scooting Up and Down in Bed Maximum Assistance PT-Transfer Assessment Sit to and From Stand Sit to and from Stand Maximum Assistance,2 Person Assistance,Use of Upper Extremities Equipment Transfer Assistive Device Gait Belt,Small Based Quad Cane Orthotic/Prosthetic Devices or Brace: No Comments Mobility Comments Pt was lying in bed as PT arrived. After some encouragement, pt agreed to attempt to stand. PT moved LLE toward EOB and pt moved RLE initially and then required max assist to move RLE. RN assisted from the back as PT managed BLE during turn to EOB . Pt assisted via overhead trapeze with RUE. Pt sat EOB and caught his breath. Sitting balance was fair. Pt's feet are too large for hospital socks so PT cut socks to fit as much as possible. PT donned socks and pt used QC on right side as PT and RN provided max assist for attempts to stand. Pt was able to get weight on RLE and to lift his hips from the bed but was unable to extend his knees for stable stance. He sat EOB and attempted one more time max A x 2 with same result. Pt requested return to bed, requiring total assist x 2. Max A x 2 to scoot toward HOB in supine with bed in reverse trendelenberg. Pt was left with RN attending. Gait Assessment Comments Gait Comments Unable to safely stand. PLOF is transfers only. Stair Climbing Assessment Comments Stair Climbing Comments No stairs in home environment. PT-Balance Assessment Sitting Balance and Reactions Static Sitting Balance Ability Good Dynamic Sitting Balance Ability Fair Standing Balance and Reactions Static Standing Balance Ability Poor Dynamic Standing Balance Ability Poor Device Used QC M5 PT-IP Objective Assessments Start: 12/25/21 17:05 Freq: NEEDED Status: Active Protocol: Document 01/13/22 16:54 AW (Rec: 01/13/22 17:37 AW [id number]) Orientation Orientation/Cognition Level of Alertness Alert Orientation Name,Date,Day of Week,Place, Situation Language Function Ability No Deficits Noted Safety Awareness Decreased Safety Awareness Gross Range of Motion Upper Extremity ROM Impairments Pt unable to move his LUE and has tone and contractures. Lower Extremity ROM Assessment Bilaterally Impaired Impairments limited due to BLE lymphedema Strength Lower Extremity Strength Assessment Bilaterally Impaired Comments Strength Comments LLE: knee flexion: 2-/5 but 0/ 5 otherwise RLE: 3-/5 except ankle 2-/5 Sensation Assessment Sensation Gross Sensation Left UE Impaired,Left LE Impaired Light Touch Absent Proprioception (Position) Impaired Muscle Tone Muscle Tone WNL No Other Assessments Other Other Assessments Pt has chronic BLE lymphedema and elephantiasis. Bilateral distal feet with significant skin changes and papillomas obscuring toes. M6 PT-IP Treatment Start: 12/25/21 17:05 Freq: NEEDED Status: Active Protocol: Document 01/13/22 16:54 AW (Rec: 01/13/22 17:37 AW [id number]) Physical Therapy Treatment Education Education Provided Weight Bearing Status,Safety M7 PT-IP Assessment and Plan Start: 12/25/21 17:05 Freq: NEEDED Status: Active Protocol: Document 01/13/22 16:54 AW (Rec: 01/13/22 17:37 AW [id number]) PT Summary Assessment and Plan Potential Rehabilitation Potential Fair Status of Condition at Evaluation Evolving Summary Impairments Pain,ROM,Strength,Balance, Sensation,Tone,Bed Mobility, Transfers,Gait Assessment Summary Daljit is a 61 yo man with PMH including CVA, left hemiparesis, limited mobility, chronic BLE lymphedema and elephantiasis, morbid obesity (BMI>50). He fell and fractured his right ankle on . He elected surgery and is now s/p R IM nina, partial arthrodesis and his weightbearing was upgraded to WBAT. He now presents with significant RLE strength impairments and painful right ankle. He required max to total assist x 2 for bed mobility and attempts to stand with quad cane. Pt would benefit from continued acute PT to progress his strength and mobility independence. Depending on progress, pt may need SNF rehab vs home with 24 /7 assist and intensive home health program. Will continue to assess. Goals Bed Mobility Goal Minimal Assistance Transfer Goal Minimal Assistance,Cane Other Goals - pt will transfer with min assist using slide board Days to Meet Goals 20 Frequency of Treatment Frequency Of Treatment Once a Day Treatment Plan Physical Therapy Treatment Plan Bed Mobility Training,Transfer Training,Gait Training, Therapeutic Exercise,Balance Retraining,Post Op Education, Discharge Planning,Hot or Cold Pack,Neuromuscular Re-ed Other Recommendations and Next Treatment bed mobility, sit to stand ( Focus use bed tilt feature as needed ); consider slide board transfer (if slide board can accommodate pt's weight); transfer with QC if able Precautions Other Precautions falls Weight Bearing Status Weight Bearing Status Weight Bear as Tolerated Allowed Weight Bearing Amount (enter % WBAT RLE or #) (%) Recommendations To Nursing Amount of Assist Needed Mechanical Lift Discharge Recommendations PT Discharge Recommendations Home with 24/7 Assist Available,Home Health,SNF Rehab,Home vs SNF Transportation Needs at Discharge Wheelchair/Cabulance
[2022-01-13] MEDS: OXYCODONE IR 10 MG TABLET PO (16:59)
[2022-01-13] MEDS: ONDANSETRON 4 MG ODT SL (16:59)
--- NOTE | 2022-01-13 18:16 | P.PN_ITS ---
Subjective Subjective Date Patient Seen: 01/13/22 Interval history: With status post treatment of a right ankle dislocation with intramedullary nina, arthrodesis of the right ankle. He had operative treatment today. The patient has chronic severe lymphedema. He tolerated the procedure without difficulty. He does report increasing pain postoperatively. Patient request to discontinue oxycodone enter try Percocet for pain relief. He was able to have a bowel movement today. Patient was able to stand with physical therapy today as well. Exam Vital Signs (past 8 hours): - 01/13/22 10:45 01/13/22 10:50 01/13/22 10:55 Temperature 97.6 F Pulse Rate 73 74 76 Respiratory Rate 12 12 14 Blood Pressure 104/68 95/68 99/63 Pulse Oximetry 90 L 95 96 01/13/22 11:00 01/13/22 11:15 01/13/22 11:30 Temperature 97.9 F Pulse Rate 80 76 74 Respiratory Rate 14 14 16 Blood Pressure 102/69 110/78 105/62 Pulse Oximetry 96 96 96 01/13/22 11:37 01/13/22 11:55 01/13/22 12:26 Temperature 98.1 F 96.4 F L Pulse Rate 76 83 90 Respiratory Rate 14 16 18 Blood Pressure 105/72 124/80 119/86 Pulse Oximetry 95 97 91 01/13/22 12:56 01/13/22 14:04 01/13/22 15:00 Temperature 97.5 F L 97.5 F L 97.6 F Pulse Rate 89 89 94 H Respiratory Rate 19 18 19 Blood Pressure 132/80 105/70 117/74 Pulse Oximetry 90 L 93 93 Oxygen Delivery Method Room Air Oxygen Flow Rate 2 Narrative Exam Narrative: Pleasant male lying in bed Resp Other: Lungs: Clear to auscultation Cardio Other: Cardiac exam: Regular rate and rhythm normal S1-S2 GI Other: Abdomen: Soft and nontender Extrem Other: Chronic lymphedema both lower extremities, both lower extremities with Gurpreet bandages wrapped Objective Labs Result Diagrams: 01/13/22 05:07 01/13/22 05:07 Labs: Laboratory Results - last 24 hr 01/13/22 01/13/22 05:07 05:07 WBC 9.9 RBC 4.69 Hgb 11.1 L Hct 34.1 L MCV 72.8 L MCH 23.7 L MCHC 32.5 RDW 17.6 H Plt Count 232 Neut % (Auto) 73.2 Lymph % (Auto) 18.3 L Wilkes % (Auto) 5.8 Eos % (Auto) 1.4 L Baso % (Auto) 1.3 Neut # (Auto) 7300 H Lymph # (Auto) 1800 Wilkes # (Auto) 600 Eos # (Auto) 100 Baso # (Auto) 100 Sodium 139 Potassium 4.3 Chloride 104 Carbon Dioxide 31 BUN 19 Creatinine 0.92 Estimated GFR > 60 BUN/Creatinine Ratio 20.7 Glucose 191 H Calcium 8.6 Total Bilirubin 0.4 AST 23 ALT 37 Alkaline Phosphatase 114 Total Protein 6.5 Albumin 3.4 L Globulin 3.1 Albumin/Globulin Ratio 1.1 PFSH Medical History Asthma Chronic acquired lymphedema HTN (hypertension) Hyperlipidemia Morbid obesity with body mass index (BMI) of 40.0 to 49.9 Obstructive sleep apnea (04/03/20) Family History Family/Other Obesity Hypertension Diabetes mellitus Heart disease Dementia Social History household members: none Smoking Status: Never smoker additional social history: Had lived independently but failure to thrive and care deficits. Smoking 18 g of marijuana daily Assessment & Plan Assessment & Plan narrative: [address] [address] Progress Note Patient: Xiang Barton MR#: [id number] : 1960 Acct:[id number] Age/Sex: 61 / M ? Date of Service: 12/28/21 Provider:Sloane Fowler MD Subjective Subjective Date Patient Seen: 01/12/22 Interval history: 61-year-old male with morbid obesity here with a left ankle fracture.? Patient is scheduled for definitive operative repair tomorrow.? He has no complaints of pain.? He is not short of breath. Exam Vital Signs (past 8 hours): Oxygen Delivery Method? Room Air? Oxygen Flow Rate? 0 ? Narrative Exam Narrative: Pleasant obese male lying in bed in no obvious distress Resp Other: Lungs clear to auscultation Cardio Other: Cardiac exam: Regular rate and rhythm normal S1-S2 GI Other: Abdomen soft nontender nondistended Extrem Other: Significant lymphedema, with chronic venous stasis changes of both lower extremities left worse than right Objective Labs Result Diagrams: 12/28/21 13:20? 12/28/21 13:20? Assessment & Plan narrative: Right ankle fracture, * Patient has suffered a distal fibular fracture, and medial malleolar fracture which has been reduced and splinted * Given his significant morbid obesity he will be unable to transfer given the fracture right ankle * Appreciate orthopedic surgery re-evaluating patient, as he has remained inpatient due to difficult placement\ * Plans underway for definitive surgery next Thursday, patient is status post repair of a trimalleolar fracture, he is having significant pain postoperatively * Will switch oxycodone to Percocet * Continue physical therapy occupational therapy * Hopefully the patient will be able to pivot and be stable for discharge home tomorrow 2. Type 2 DM * Insulin sliding scale inpatient * Home glimeperide 4 mg daily on-board 3. Morbid obesity, class 3 * This clearly had a significant impact on his morbidity, as his obesity likely is the cause of the right ankle fracture which is resulting in his inability to move and pivot at this point * His obesity is his rate limiting factor for discharge either home or to intermediate 4. Hypertension * Continue home carvedilol 25 mg bid, patient reports he no longer takes lisinopril, and is unsure why 5. Obstructive sleep apnea * Patient denies use of CPAP at home6. Sacral decubitus ulcer, stage III/IV * Given his significant obesity, and inability to move this is problematic as he is at high risk for further skin breakdown 7. Elephantiasis, secondary to chronic lymphedema * Chronic, continue his usual wound dressing 8. Intertrigo, likely Lanie, affecting many folds * Will start topical clotrimazole/betamethasone * Will start PO Diflucan 150 mg once weekly for 4 weeks (started December 25, 2021)9. Asthma, likely made worse by copious marijuana use * Continue the albuterol inhaler, as needed1 0. Insomnia * Continue home trazodone 50 mg daily * Nightly Benadryl 50 mg, as needed, along with Benadryl 50 mg at midnight 11. Hypothyroidism, patient reports he is not on levothyroxine Will check his TSH level in adjust accordingly TSH came back 4.7, discontinue L-thyroxine, will need repeat TSH ultimately Time Spent With Patient Time Spent With Patient Critical Care time: I spent a total of [] minutes of critical care time on this patient's care today; this time is exclusive of procedural time.
[2022-01-13] MEDS: OXYCODONE/ACETAMINOPHEN 5/325 TABLET 2 TAB PO (20:05)
[2022-01-13] MEDS: ATORVASTATIN 20 MG TABLET PO (20:06)
[2022-01-13] MEDS: ENOXAPARIN 40 MG/0.4 ML SYRINGE SUBCUT (20:06)
[2022-01-13] MEDS: SODIUM CHLORIDE 0.9% FLUSH 10 ML IV (20:12)
[2022-01-14] VITALS (8 sets, daily range): BP systolic 111–149; BP diastolic 62–87; PULSE 87–106; RESP 16–20; TEMP 36.1–37.1; O2SAT 90–97
[2022-01-14] MEDS: OXYCODONE/ACETAMINOPHEN 5/325 TABLET 2 TAB PO ×6 (00:03→23:00)
[2022-01-14] MEDS: LEVOTHYROXINE 25 MCG TABLET PO (05:23)
[2022-01-14] MEDS: SIMETHICONE 80 MG TABLET PO ×2 (05:26→15:39)
[2022-01-14] MEDS: ONDANSETRON 4 MG/2 ML INJ IV (06:22)
[2022-01-14 07:50] LABS: Hematocrit 35.1 % (41-53); Hemoglobin 11.4 g/dL (13.5-17.5); Mean Corpuscular HGB Conc 32.5 % (30-36); Mean Corpuscular Hemoglobin 23.8 PG (26-34); Mean Corpuscular Volume 73.3 fL (80-100); Platelet Count 230 X10^3/uL (150-400); Red Blood Cell Count 4.79 X10^6/uL (4.5-5.9); Red Cell Distribution Width 17.6 % (11.6-14.8); White Blood Cell Count 14.4 X10^3/uL (4.5-11.0)
[2022-01-14] MEDS: PANTOPRAZOLE DR 20 MG TABLET PO (08:27)
[2022-01-14] MEDS: GLIMEPIRIDE 2 MG TABLET 4 MG PO (08:28)
[2022-01-14] MEDS: INSULIN LISPRO 100 UNIT/ML 3ML VIAL SUBCUT ×4 (08:31→21:56)
[2022-01-14] MEDS: PSYLLIUM HUSK 1 PACKET PO ×2 (08:33→17:29)
[2022-01-14] MEDS: SODIUM CHLORIDE 0.9% FLUSH 10 ML IV ×2 (08:34→22:00)
[2022-01-14] MEDS: ENOXAPARIN 40 MG/0.4 ML SYRINGE SUBCUT ×2 (08:43→21:53)
[2022-01-14] MEDS: carvediloL 12.5 MG TABLET 25 MG PO ×2 (08:43→21:52)
[2022-01-14] MEDS: ONDANSETRON 4 MG ODT SL (11:39)
--- NOTE | 2022-01-14 12:22 | PM.PNPO.1 ---
Subjective Subjective Date Patient Seen: 01/14/22 Time Patient Seen: 12:22 Interval history: Patient states he is doing well. No fever or chills. No nausea vomiting. Exam Vital Signs (past 8 hours): - 01/14/22 05:00 01/14/22 07:30 01/14/22 10:48 Temperature 97.7 F 98.7 F 98.2 F Pulse Rate 90 106 H 101 H Respiratory Rate 18 16 18 Blood Pressure 111/62 124/70 143/76 H Pulse Oximetry 96 90 L 90 L Oxygen Delivery Method Room Air Oxygen Flow Rate 0 Narrative Exam Narrative: 61-year-old male resting comfortably in bed having lunch. Dressing clean dry and intact. Const General: cooperative Orientation: alert Objective Labs Result Diagrams: 01/14/22 07:30 01/13/22 05:07 Labs: Laboratory Results - last 24 hr 01/14/22 07:30 WBC 14.4 H RBC 4.79 Hgb 11.4 L Hct 35.1 L MCV 73.3 L MCH 23.8 L MCHC 32.5 RDW 17.6 H Plt Count 230 PFSH Medical History Asthma Chronic acquired lymphedema HTN (hypertension) Hyperlipidemia Morbid obesity with body mass index (BMI) of 40.0 to 49.9 Obstructive sleep apnea (04/03/20) Family History Family/Other Obesity Hypertension Diabetes mellitus Heart disease Dementia Social History household members: none Smoking Status: Never smoker additional social history: Had lived independently but failure to thrive and care deficits. Smoking 18 g of marijuana daily Assessment & Plan Post-op Postoperative Procedures: Procedures Operation Date: 01/13/22 07:45 Actual Procedure Side Surgeon p hindfoot arthrodesis nail ankle Right Marlin Martinez MD Postoperative day: 1 Postoperative status: doing well Postoperative plan narrative: May be weight-bearing as tolerated on the operative extremity in the soft dressing. Dressing may be changed to reinforced as indicated. The extremity as needed but no showers or soaking of the incisions. Sutures will remain in place 2-4 weeks. Should follow-up with Dr. Martinez in Orthopedic office in 2-4 weeks for suture removal. Will resume Lovenox for DVT prophylaxis while in the hospital
--- NOTE | 2022-01-14 15:20 | PT.IPTN ---
Current Diagnoses Morbid (severe) obesity due to excess calories (12/28/21) Lymphedema, not elsewhere classified (12/28/21) Other fracture of right lower leg, initial encounter for closed fracture (12/28/21) Dislocation of right ankle joint, initial encounter (12/28/21) Body mass index [BMI] 50.0-59.9, adult (12/28/21) Surgery Performed Operation Date: 01/13/22 07:45 Actual Procedures p hindfoot arthrodesis nail ankle(Right) - Marlin Martinez MD Physical Therapy Treatment Note M2 PT-IP Current Condition Start: 12/25/21 17:05 Freq: NEEDED Status: Active Protocol: Document 01/13/22 16:54 AW (Rec: 01/13/22 17:37 AW [id number]) Physical Therapy Current Condition Current Condition Evaluation Date 01/13/22 Treatment Diagnosis R trimalleolar ankle fx s/p IM nina; L hemiparesis; impaired mobility Onset Date 01/05/22 M3 PT-IP Subjective Start: 12/25/21 17:05 Freq: NEEDED Status: Active Protocol: Document 01/14/22 14:50 KS (Rec: 01/14/22 15:46 KS [id number]) Subjective Physical Therapy Visit Type Type Treatment Note Visit Start Time 14:50 Visit Stop Time 15:20 Total Visit Minutes 30 Notes Ortho updated WB status to WBAT RLE. Physical Therapy Visit Comments Patient Comments Pt requires some encouragement but is ultimately willing to attempt to stand. Therapy Pain Assessment Pain When Pain Assessed At Rest Pain Present Pain Present Pain Reported Location Right Ankle Intensity 10 Scale Used Numeric (0 - 10) Pain Management Techniques Distraction,Elevation,Re- positioning M4 PT-IP Mobility and Gait Start: 12/25/21 17:05 Freq: NEEDED Status: Active Protocol: Document 01/14/22 14:50 KS (Rec: 01/14/22 15:46 KS [id number]) PT-Bed Mobility Assessment Supine to Sit Supine to Sit Maximum Assistance,2 Person Assistance,Head of Bed Elevated Scooting Scooting to Edge of Bed Maximum Assistance PT-Transfer Assessment Equipment Transfer Assistive Device Gait Belt,Small Based Quad Cane,Mechanical Lift Orthotic/Prosthetic Devices or Brace: No Transfers Transfer Destination Chair Transfer Technique Mechanical Lift Transfer Ability Level of Assist Total Assistance Comments Mobility Comments Pt in bed upon arrival. Max A x2 for sup<>sit and scooting EOB. Pt able to mostly keep himself upright but occasionally needs Max A to recover sitting balance while nursing staff provided sponge bath. Attempted to assist pt to standing w/ Max A x2 but pt unable and refused to try w/ more assist due to 10/10 reported R ankle pain. Reveiwed WBAT status w/ pt. Pt requested michael to chair. Max A x2 to assist pt in leaning side to side for sling placement. Once in chair pt completed 1x10 LAQs and seated marches w/ RLE. Pt left in chair w/ nursing in room. Gait Assessment Comments Gait Comments Unable to safely stand. PLOF is transfers only. Required michael today. Stair Climbing Assessment Comments Stair Climbing Comments No stairs in home environment. PT-Balance Assessment Sitting Balance and Reactions Static Sitting Balance Ability Fair Dynamic Sitting Balance Ability Fair M5 PT-IP Objective Assessments Start: 12/25/21 17:05 Freq: NEEDED Status: Active Protocol: Document 01/13/22 16:54 AW (Rec: 01/13/22 17:37 AW [id number]) Orientation Orientation/Cognition Level of Alertness Alert Orientation Name,Date,Day of Week,Place, Situation Language Function Ability No Deficits Noted Safety Awareness Decreased Safety Awareness Gross Range of Motion Upper Extremity ROM Impairments Pt unable to move his LUE and has tone and contractures. Lower Extremity ROM Assessment Bilaterally Impaired Impairments limited due to BLE lymphedema Strength Lower Extremity Strength Assessment Bilaterally Impaired Comments Strength Comments LLE: knee flexion: 2-/5 but 0/ 5 otherwise RLE: 3-/5 except ankle 2-/5 Sensation Assessment Sensation Gross Sensation Left UE Impaired,Left LE Impaired Light Touch Absent Proprioception (Position) Impaired Muscle Tone Muscle Tone WNL No Other Assessments Other Other Assessments Pt has chronic BLE lymphedema and elephantiasis. Bilateral distal feet with significant skin changes and papillomas obscuring toes. M6 PT-IP Treatment Start: 12/25/21 17:05 Freq: NEEDED Status: Active Protocol: Document 01/14/22 14:50 KS (Rec: 01/14/22 15:46 KS [id number]) Physical Therapy Treatment Education Education Provided Weight Bearing Status,Safety Other Treatments Other Treatment Performed LAQs, seated marching RLE M7 PT-IP Assessment and Plan Start: 12/25/21 17:05 Freq: NEEDED Status: Active Protocol: Document 01/14/22 14:50 KS (Rec: 01/14/22 15:46 KS [id number]) PT Summary Assessment and Plan Potential Rehabilitation Potential Fair Status of Condition at Evaluation Evolving Summary Impairments Pain,ROM,Strength,Balance, Sensation,Tone,Bed Mobility, Transfers,Gait Assessment Summary Pt continues to be limited by weakness, pain, and comorbidities. He required MAx A x2 for sup<>Sit w/ HOB elevated and scooting EOB. Unable to stand today w/ Max A x2 due to pain and weakness and required michael lift transfer from bed to chair. Ablw to complete minimal LE exercises w/ RLE but fatigues quickly. He will require SNF to improve strength, mobility, and activity tolerance. Goals Bed Mobility Goal Minimal Assistance Transfer Goal Minimal Assistance,Cane Other Goals - pt will transfer with min assist using slide board Days to Meet Goals 20 Frequency of Treatment Frequency Of Treatment Once a Day Treatment Plan Physical Therapy Treatment Plan Bed Mobility Training,Transfer Training,Gait Training, Therapeutic Exercise,Balance Retraining,Post Op Education, Discharge Planning,Hot or Cold Pack,Neuromuscular Re-ed Other Recommendations and Next Treatment bed mobility, sit to stand ( Focus use bed tilt feature as needed ); consider slide board transfer (if slide board can accommodate pt's weight); transfer with QC if able Precautions Other Precautions falls Weight Bearing Status Weight Bearing Status Weight Bear as Tolerated Allowed Weight Bearing Amount (enter % WBAT RLE or #) (%) Recommendations To Nursing Amount of Assist Needed Mechanical Lift Discharge Recommendations PT Discharge Recommendations Home with 20/04 Assist Available,Home Health,SNF Rehab,Home vs SNF Transportation Needs at Discharge Wheelchair/Cabulance
[2022-01-14] MEDS: ALBUTEROL 2.5 MG/3 ML NEB (ADULT) INH (17:13)
--- NOTE | 2022-01-14 17:21 | P.PN_ITS ---
Subjective Subjective Date Patient Seen: 01/14/22 Interval history: Patient is a 61-year-old male who suffered a ankle fracture, he underwent arthritic DCS of the right ankle with a intramedullary nina. The patient reports significant pain with weight-bearing. He is unable to bear weight at this time. The patient also complains of being constipated. He is wheezing today although he has been refusing breathing treatments per previously. Exam Vital Signs (past 8 hours): - 01/14/22 10:48 01/14/22 15:55 01/14/22 17:14 Temperature 98.2 F 97.0 F L Pulse Rate 101 H 98 H Respiratory Rate 18 19 Blood Pressure 143/76 H 130/78 Pulse Oximetry 90 L 91 93 Oxygen Delivery Method Room Air Oxygen Flow Rate 0 Narrative Exam Narrative: Obese male lying in bed Resp Other: Lungs decreased breath sounds with end-expiratory wheezing Cardio Other: Cardiac exam: Regular rate and rhythm normal S1-S2 GI Other: Abdomen: Soft and nontender Extrem Other: Extremities Gurpreet bandage is present bilaterally, patient with chronic lymphedema bilaterally as well Objective Labs Result Diagrams: 01/14/22 07:30 01/13/22 05:07 Labs: Laboratory Results - last 24 hr 01/14/22 07:30 WBC 14.4 H RBC 4.79 Hgb 11.4 L Hct 35.1 L MCV 73.3 L MCH 23.8 L MCHC 32.5 RDW 17.6 H Plt Count 230 PFSH Medical History Asthma Chronic acquired lymphedema HTN (hypertension) Hyperlipidemia Morbid obesity with body mass index (BMI) of 40.0 to 49.9 Obstructive sleep apnea (04/03/20) Family History Family/Other Obesity Hypertension Diabetes mellitus Heart disease Dementia Social History household members: none Smoking Status: Never smoker additional social history: Had lived independently but failure to thrive and care deficits. Smoking 18 g of marijuana daily Assessment & Plan Assessment & Plan narrative: Right ankle fracture, * Patient has suffered a distal fibular fracture, and medial malleolar fracture which has been reduced and splinted * Given his significant morbid obesity he will be unable to transfer given the fracture right ankle * Appreciate orthopedic surgery re-evaluating patient, as he has remained inpatient due to difficult placement * patient is status post repair of a trimalleolar fracture, he is having significant pain postoperatively * Will switch oxycodone to Percocet * Continue physical therapy occupational therapy * He is currently unable to bear weight, is on safe to transfer, unable to be discharged home * Will continue physical therapy and occupational therapy, as the goal is for him to discharge home. He was very difficult placement and essentially unable to be placed at a facility for ongoing care 2. Type 2 diabetes * Insulin sliding scale inpatient * Home glimeperide 4 mg daily on-board 3. Morbid obesity, class 3 * This clearly had a significant impact on his morbidity, as his obesity likely is the cause of the right ankle fracture which is resulting in his inability to move and pivot at this point * His obesity is his rate limiting factor for discharge either home or to senior living 4. Hypertension * Continue home carvedilol 25 mg bid, patient reports he no longer takes lisinopril, and is unsure why 5. Obstructive sleep apnea * Patient denies use of CPAP at home 6. Sacral decubitus ulcer, stage III/IV * Given his significant obesity, and inability to move this is problematic as he is at high risk for further skin breakdown7. Elephantiasis, secondary to chronic lymphedema * Chronic, continue his usual wound dressing 8. Intertrigo, likely Lanie, affecting many folds * Will start topical clotrimazole/betamethasone * Will start PO Diflucan 150 mg once weekly for 4 weeks (started December 25, 2021) 9. Asthma, likely made worse by copious marijuana use * Continue the albuterol inhaler, as needed, encouraged him to take breathing treatments as offered by respiratory therapy * 10. Insomnia * Continue home trazodone 50 mg daily * Nightly Benadryl 50 mg, as needed, along with Benadryl 50 mg at [id number]. Hypothyroidism, patient reports he is not on levothyroxine Will check his TSH level in adjust accordingly TSH came back 4.7, discontinue L-thyroxine, will need repeat TSH ultimately Time Spent With Patient Critical Care time: I spent a total of [] minutes of critical care time on this patient's care today; this time is exclusive of procedural time.
[2022-01-14] MEDS: ATORVASTATIN 20 MG TABLET PO (21:52)
[2022-01-15 02:59] VITALS: O2SAT 93
[2022-01-15] MEDS: OXYCODONE/ACETAMINOPHEN 5/325 TABLET 2 TAB PO (04:24)
[2022-01-15 07:45] VITALS: BP 114/74; PULSE 90; RESP 16; TEMP 36; O2SAT 90
--- NOTE | 2022-01-15 08:08 | PM.PNPO.1 ---
Subjective Subjective Date Patient Seen: 01/15/22 Time Patient Seen: 08:08 Interval history: Patient is complaining of significant right foot pain with weight-bearing. He is requesting additional pain medications specially before physical therapy. He denies any new numbness or tingling. He has a history of chronic open tightest and morbid obesity. There has been much difficulty finding facility placement for him upon discharge. Exam Vital Signs (past 8 hours): - 01/15/22 02:59 Pulse Oximetry 93 Oxygen Delivery Method Room Air Oxygen Flow Rate 0 Narrative Exam Narrative: Pleasant 61-year-old male, resting comfortably in bed, no acute distress. Right foot: Signs of elephant tightest and chronic lymphedema, he is able to wiggle his toes, dressing is clean, dry, intact. Left foot demonstrates severe elephant hiatus. Calves are soft and nontender to palpation. Objective Labs Result Diagrams: 01/14/22 07:30 01/13/22 05:07 [facility] Medical History Asthma Chronic acquired lymphedema HTN (hypertension) Hyperlipidemia Morbid obesity with body mass index (BMI) of 40.0 to 49.9 Obstructive sleep apnea (04/03/20) Family History Family/Other Obesity Hypertension Diabetes mellitus Heart disease Dementia Social History household members: none Smoking Status: Never smoker additional social history: Had lived independently but failure to thrive and care deficits. Smoking 18 g of marijuana daily Assessment & Plan Post-op Postoperative Procedures: Procedures Operation Date: 01/13/22 07:45 Actual Procedure Side Surgeon p hindfoot arthrodesis nail ankle Right Marlin Martinez MD Postoperative day: 2 Postoperative status narrative: Stable status post right ankle and hindfoot arthrodesis nail Postoperative plan narrative: May be weightbear as tolerated on the operative extremity in the soft dressing. Dressing may be changed to reinforced as indicated. The extremity may be washed as needed but no showers or soaking of the incisions. Sutures will remain in place 2-4 weeks. Should follow-up with Dr. Martinez in Orthopedic office in 2-4 weeks for suture removal. Will resume Lovenox for DVT prophylaxis while in the hospital -requesting additional pain medications, per primary team
[2022-01-15 08:25] VITALS: BP 140/80; PULSE 90
[2022-01-15] MEDS: GLIMEPIRIDE 2 MG TABLET 4 MG PO (08:25)
[2022-01-15] MEDS: polyethylene glycoL 3350 17 GM POWD.PACK PO (08:25)
[2022-01-15] MEDS: carvediloL 12.5 MG TABLET 25 MG PO ×2 (08:25→19:58)
[2022-01-15] MEDS: PSYLLIUM HUSK 1 PACKET PO ×2 (08:25→17:13)
[2022-01-15] MEDS: DOCUSATE 100 MG CAPSULE 200 MG PO (08:29)
[2022-01-15] MEDS: PANTOPRAZOLE DR 20 MG TABLET PO (08:30)
[2022-01-15] MEDS: INSULIN LISPRO 100 UNIT/ML 3ML VIAL SUBCUT ×4 (08:30→20:43)
[2022-01-15] MEDS: SODIUM CHLORIDE 0.9% FLUSH 10 ML IV ×2 (08:32→19:45)
[2022-01-15] MEDS: ENOXAPARIN 40 MG/0.4 ML SYRINGE SUBCUT ×2 (09:18→19:58)
[2022-01-15] MEDS: OXYCODONE IR 5 MG TABLET 10 MG PO ×2 (09:31→12:46)
[2022-01-15] MEDS: ACETAMINOPHEN 325 MG TABLET 650 MG PO ×3 (09:32→17:13)
[2022-01-15] MEDS: ALBUTEROL 2.5 MG/3 ML NEB (ADULT) INH ×2 (11:51→15:51)
--- NOTE | 2022-01-15 11:55 | PT-IP ANOTE ---
Pt declined working with therapy when arrived, stated would like to be premedicated 30 min prior to working with therapy. Pt requested will try and work with therapy in afternoon if knows when will arrive to ask premedicating. QUALITATIVE RESEARCHER in room stated was going to assist pt via Jose to chair for lunch. METAL WINDOW FRAME MAKER unable to see pt this am, will return in afternoon for further assessment. *Coordinate with pt time will see for self coordination medication.
--- NOTE | 2022-01-15 14:21 | CM.DPC ---
DCP Cont: Per MD, pt successfully tolerated ankle surgery with Dr. Martinez and now weight baring as tolerated. Per PT yesterday and today, pt still 2PA with bed mobility and has 10/10 pain for attempts with mobility or transfers and still requiring michael lift. Ortho increased his pain medication this morning towards better pain management to better work with PT/OT. Per PT, pt refused this morning and states willing to attempt this PM after given pain medication. SW called following in attempts at getting [facility] assist with placement needs: Henrietta MaradiagaOpbm-[phone] and left a msg as she is one of the coordinators for LTC planning/Transitional Care Dana Brand- [phone] who is admissions at Transitional Care and she confirms she still has not received referral from internally [facility] where referral has to come from. Neda- [phone] [facility] Control Analyst and their phone system is down but she called this morning and left msg. Hugo Sr- [phone] [facility] coordinator for Transitional Care for [facility]. Left msg, she called back and left msg requesting additional info re pt to determine if he meets criteria and qualifies towards her assist in making referral. Called back 3 times and left msgs but they are also having phone issues now too in their system. SW then called Radha Jarrell [phone] as she is a [facility] Account Development Associate for the [facility] Hospital team and left detailed msg requesting assist with placement, updates, status on pt in the [facility] system with urgent request she call back. Plan: SW to follow closely for ongoing attempts at coordinating safe d/c plan for pt from the hospital. REYNALDO Moss
--- NOTE | 2022-01-15 14:31 | P.PN_ITS ---
Subjective Subjective Date Patient Seen: 01/15/22 Interval history: 61-year-old male with a trimalleolar fracture on the right status postoperative repair. Patient reports he continues to have pain with weight-bearing. We have increased his Percocet from 5-10 mg prior to PT so that he can potentially ambulate. He continues to complain of constipation. Have increased his bowel regimen with a goal for positive movement. Exam Vital Signs (past 8 hours): - 01/15/22 07:45 01/15/22 08:25 Temperature 96.8 F L Pulse Rate 90 90 Respiratory Rate 16 Blood Pressure 114/74 140/80 Pulse Oximetry 90 L Oxygen Delivery Method Room Air Oxygen Flow Rate 0 Narrative Exam Narrative: Pleasant gentleman sitting in a chair in no obvious distress Resp Other: Lungs clear to auscultation Cardio Other: Cardiac exam regular rate and rhythm normal S1-S2 GI Other: Abdomen soft and nontender Extrem Other: Extremities: Bilateral lymphedema, both lower extremities with Gurpreet bandages in place Objective Labs Result Diagrams: 01/14/22 07:30 01/13/22 05:07 [facility] Medical History Asthma Chronic acquired lymphedema HTN (hypertension) Hyperlipidemia Morbid obesity with body mass index (BMI) of 40.0 to 49.9 Obstructive sleep apnea (04/03/20) Family History Family/Other Obesity Hypertension Diabetes mellitus Heart disease Dementia Social History household members: none Smoking Status: Never smoker additional social history: Had lived independently but failure to thrive and care deficits. Smoking 18 g of marijuana daily Assessment & Plan Assessment & Plan narrative: Right ankle fracture, * Patient has suffered a distal fibular fracture, and medial malleolar fracture which has been reduced and splinted * Given his significant morbid obesity he will be unable to transfer given the fracture right ankle he has remained inpatient due to difficult placement * ?patient is status post repair of a trimalleolar fracture, he is having sig nificant pain postoperatively * Will switch oxycodone to Percocet, increase Percocet 10 mg prior to physical therapy * Continue physical therapy occupational therapy * He is currently unable to bear weight, is on safe to transfer, unable to be discharged home . Type 2 diabetes * Insulin sliding scale inpatient * Home glimeperide 4 mg daily on-board 3. Morbid obesity, class 3 * This clearly had a significant impact on his morbidity, as his obesity likely is the cause of the right ankle fracture which is resulting in his inability to move and pivot at this point * His obesity is his rate limiting factor for discharge either home or to intermediate 4. Hypertension * Continue home carvedilol 25 mg bid, patient reports he no longer takes lisinopril, and is unsure why 5. Obstructive sleep apnea * Patient denies use of CPAP at home 6. Sacral decubitus ulcer, stage III/IV * Given his significant obesity, and inability to move this is problematic as he is at high risk for further skin breakdown 7. Elephantiasis, secondary to chronic lymphedema * Chronic, continue his usual wound dressing 8. Intertrigo, likely Lanie, affecting many folds * Will start topical clotrimazole/betamethasone * Will start PO Diflucan 150 mg once weekly for 4 weeks (started December 25, 2021 9. Asthma, likely made worse by copious marijuana use * Continue the albuterol inhaler, as needed, encouraged him to take breathing treatments as offered by respiratory therap * 10. Insomnia * Continue home trazodone 50 mg daily * Nightly Benadryl 50 mg, as needed, along with Benadryl 50 mg at [id number]. Hypothyroidism, patient reports he is not on levothyroxineWill check his TSH level in adjust accordingly TSH came back 4.7, discontinue L-thyroxine, will need repeat TSH ultimately Time Spent With Patient Critical Care time: I spent a total of [] minutes of critical care time on this patient's care today; this time is exclusive of procedural time.
--- NOTE | 2022-01-15 14:41 | PT.IPTN ---
Current Diagnoses Morbid (severe) obesity due to excess calories (12/28/21) Lymphedema, not elsewhere classified (12/28/21) Other fracture of right lower leg, initial encounter for closed fracture (12/28/21) Dislocation of right ankle joint, initial encounter (12/28/21) Body mass index [BMI] 50.0-59.9, adult (12/28/21) Surgery Performed Operation Date: 01/13/22 07:45 Actual Procedures p hindfoot arthrodesis nail ankle(Right) - Marlin Martinez MD Physical Therapy Treatment Note M2 PT-IP Current Condition Start: 12/25/21 17:05 Freq: NEEDED Status: Active Protocol: Document 01/13/22 16:54 AW (Rec: 01/13/22 17:37 AW [id number]) Physical Therapy Current Condition Current Condition Evaluation Date 01/13/22 Treatment Diagnosis R trimalleolar ankle fx s/p IM nina; L hemiparesis; impaired mobility Onset Date 01/05/22 M3 PT-IP Subjective Start: 12/25/21 17:05 Freq: NEEDED Status: Active Protocol: Document 01/15/22 14:15 KS (Rec: 01/15/22 15:10 KS [id number]) Subjective Physical Therapy Visit Type Type Treatment Note Visit Start Time 14:15 Visit Stop Time 14:41 Total Visit Minutes 26 Notes Ortho updated WB status to WBAT RLE. Physical Therapy Visit Comments Patient Comments Pt requires some encouragement but is ultimately willing to attempt to stand. Therapy Pain Assessment Pain When Pain Assessed At Rest Pain Present Pain Present Pain Reported Location Right Ankle Intensity 6 Scale Used Numeric (0 - 10) Pain Management Techniques Distraction,Elevation,Re- positioning M4 PT-IP Mobility and Gait Start: 12/25/21 17:05 Freq: NEEDED Status: Active Protocol: Document 01/15/22 14:15 KS (Rec: 01/15/22 15:10 KS [id number]) PT-Bed Mobility Assessment Scooting Scooting to Edge of Bed Maximum Assistance PT-Transfer Assessment Sit to and From Stand Sit to and from Stand Maximum Assistance,2 Person Assistance,Use of Upper Extremities Equipment Transfer Assistive Device Gait Belt,Small Based Quad Cane,Mechanical Lift Orthotic/Prosthetic Devices or Brace: No Transfers Transfer Destination Bed Transfer Technique Mechanical Lift Transfer Ability Level of Assist Total Assistance Comments Mobility Comments Pt in chair upon arrival and agreeable to try standing but wary of pain in ankle and weight bearing. Max A and cues for scooting to edge of chair . 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 He was unable to complete stand due to pain and weakness. He required mechanical lift from chair to bed. Max A and tilted bed for rolling to remove michael sling. In bed he completed 1x10 quad sets and glute sets but refused heel slides due to putting weight on ankle. Pt left in bed w/ all needs in reach. Gait Assessment Comments Gait Comments Unable to safely stand. PLOF is transfers only. Required michael today. Stair Climbing Assessment Comments Stair Climbing Comments No stairs in home environment. PT-Balance Assessment Sitting Balance and Reactions Static Sitting Balance Ability Fair Dynamic Sitting Balance Ability Fair M5 PT-IP Objective Assessments Start: 12/25/21 17:05 Freq: NEEDED Status: Active Protocol: Document 01/13/22 16:54 AW (Rec: 01/13/22 17:37 AW [id number]) Orientation Orientation/Cognition Level of Alertness Alert Orientation Name,Date,Day of Week,Place, Situation Language Function Ability No Deficits Noted Safety Awareness Decreased Safety Awareness Gross Range of Motion Upper Extremity ROM Impairments Pt unable to move his LUE and has tone and contractures. Lower Extremity ROM Assessment Bilaterally Impaired Impairments limited due to BLE lymphedema Strength Lower Extremity Strength Assessment Bilaterally Impaired Comments Strength Comments LLE: knee flexion: 2-/5 but 0/ 5 otherwise RLE: 3-/5 except ankle 2-/5 Sensation Assessment Sensation Gross Sensation Left UE Impaired,Left LE Impaired Light Touch Absent Proprioception (Position) Impaired Muscle Tone Muscle Tone WNL No Other Assessments Other Other Assessments Pt has chronic BLE lymphedema and elephantiasis. Bilateral distal feet with significant skin changes and papillomas obscuring toes. M6 PT-IP Treatment Start: 12/25/21 17:05 Freq: NEEDED Status: Active Protocol: Document 01/15/22 14:15 KS (Rec: 01/15/22 15:10 KS [id number]) Physical Therapy Treatment Exercises Exercises Gluteal Sets,Quad Sets Education Education Provided Weight Bearing Status,Safety M7 PT-IP Assessment and Plan Start: 12/25/21 17:05 Freq: NEEDED Status: Active Protocol: Document 01/15/22 14:15 IN (Rec: 01/15/22 15:10 KS [id number]) PT Summary Assessment and Plan Potential Rehabilitation Potential Fair Status of Condition at Evaluation Evolving Summary Impairments Pain,ROM,Strength,Balance, Sensation,Tone,Bed Mobility, Transfers,Gait Assessment Summary Pt attempted to stand 3 times today with Max A x2 and no success. He required Max A for scooting to EOC and mechanical lift for transfer from chair to bed. Quick approach to fatigue during exercise. He will require SNF to improve strength and functional mobility. Goals Bed Mobility Goal Minimal Assistance Transfer Goal Minimal Assistance,Cane Other Goals - pt will transfer with min assist using slide board Days to Meet Goals 20 Frequency of Treatment Frequency Of Treatment Once a Day Treatment Plan Physical Therapy Treatment Plan Bed Mobility Training,Transfer Training,Gait Training, Therapeutic Exercise,Balance Retraining,Post Op Education, Discharge Planning,Hot or Cold Pack,Neuromuscular Re-ed Other Recommendations and Next Treatment bed mobility, sit to stand ( Focus use bed tilt feature as needed ); consider slide board transfer (if slide board can accommodate pt's weight); transfer with QC if able Precautions Other Precautions falls Weight Bearing Status Weight Bearing Status Weight Bear as Tolerated Allowed Weight Bearing Amount (enter % WBAT RLE or #) (%) Recommendations To Nursing Amount of Assist Needed Mechanical Lift Discharge Recommendations PT Discharge Recommendations Home with 20/04 Assist Available,Home Health,SNF Rehab,Home vs SNF Transportation Needs at Discharge Wheelchair/Cabulance
[2022-01-15] MEDS: OXYCODONE IR 5 MG TABLET PO ×2 (16:34→23:18)
[2022-01-15] MEDS: ONDANSETRON 4 MG/2 ML INJ IV (16:34)
[2022-01-15 19:20] VITALS: BP 123/88; PULSE 88; RESP 16; TEMP 36.5; O2SAT 94
[2022-01-15 19:58] VITALS: BP 123/88; PULSE 88
[2022-01-15] MEDS: ATORVASTATIN 20 MG TABLET PO (19:58)
[2022-01-15] MEDS: diphenhydrAMINE 25 MG TABLET 50 MG PO ×2 (20:42→23:18)
--- NOTE | 2022-01-16 00:01 | PC.NURSE ---
Addendum entered by Tito Galarza R.N. 01/16/22 01:15: this nurse was able to turn pt but unable to perform proper skin assessment. pt was unable to hold position for more than a minute, reporting difficulty to breath. this nurse was able to identify redness and blanching around the coccyx area but was unable to assess between skin folds as pt report increase difficulty to breath. pt became agitated and states this is the last time I'm doing this. Original Note: Graduated compression stockings order unable to complete due to no stockings would fit pt.
[2022-01-16] MEDS: OXYCODONE IR 5 MG TABLET PO ×2 (04:32→21:09)
[2022-01-16] MEDS: ACETAMINOPHEN 325 MG TABLET 650 MG PO ×3 (04:32→17:57)
[2022-01-16] MEDS: LEVOTHYROXINE 25 MCG TABLET PO (05:25)
[2022-01-16 08:00] VITALS: BP 142/68; PULSE 84; RESP 16; TEMP 36.4; O2SAT 92
[2022-01-16] MEDS: OXYCODONE IR 5 MG TABLET 10 MG PO ×2 (08:32→15:38)
[2022-01-16] MEDS: PANTOPRAZOLE DR 20 MG TABLET PO (08:33)
[2022-01-16] MEDS: polyethylene glycoL 3350 17 GM POWD.PACK PO (08:33)
[2022-01-16] MEDS: PSYLLIUM HUSK 1 PACKET PO (08:33)
[2022-01-16] MEDS: GLIMEPIRIDE 2 MG TABLET 4 MG PO (08:33)
[2022-01-16] MEDS: ENOXAPARIN 40 MG/0.4 ML SYRINGE SUBCUT ×2 (08:33→19:49)
[2022-01-16] MEDS: DOCUSATE 100 MG CAPSULE 200 MG PO (08:33)
[2022-01-16 08:34] VITALS: BP 142/68; PULSE 84
[2022-01-16] MEDS: carvediloL 12.5 MG TABLET 25 MG PO ×2 (08:34→19:51)
[2022-01-16] MEDS: INSULIN LISPRO 100 UNIT/ML 3ML VIAL SUBCUT ×4 (08:34→21:40)
[2022-01-16] MEDS: ONDANSETRON 4 MG ODT SL (11:26)
--- NOTE | 2022-01-16 11:44 | PT.IPTN ---
Current Diagnoses Morbid (severe) obesity due to excess calories (12/28/21) Lymphedema, not elsewhere classified (12/28/21) Other fracture of right lower leg, initial encounter for closed fracture (12/28/21) Dislocation of right ankle joint, initial encounter (12/28/21) Body mass index [BMI] 50.0-59.9, adult (12/28/21) Surgery Performed Operation Date: 01/13/22 07:45 Actual Procedures p hindfoot arthrodesis nail ankle(Right) - Marlin Martinez MD Physical Therapy Treatment Note M2 PT-IP Current Condition Start: 12/25/21 17:05 Freq: NEEDED Status: Active Protocol: Document 01/13/22 16:54 AW (Rec: 01/13/22 17:37 AW [id number]) Physical Therapy Current Condition Current Condition Evaluation Date 01/13/22 Treatment Diagnosis R trimalleolar ankle fx s/p IM nina; L hemiparesis; impaired mobility Onset Date 01/05/22 M3 PT-IP Subjective Start: 12/25/21 17:05 Freq: NEEDED Status: Active Protocol: Document 01/16/22 11:20 KS (Rec: 01/16/22 14:03 KS [id number]) Subjective Physical Therapy Visit Type Type Treatment Note Visit Start Time 11:20 Visit Stop Time 11:44 Total Visit Minutes 24 Notes WBAT RLE. Physical Therapy Visit Comments Patient Comments Pt agreeable to working w/ therapy. M4 PT-IP Mobility and Gait Start: 12/25/21 17:05 Freq: NEEDED Status: Active Protocol: Document 01/16/22 11:20 KS (Rec: 01/16/22 14:03 KS [id number]) PT-Bed Mobility Assessment Supine to Sit Supine to Sit Maximum Assistance,2 Person Assistance,Head of Bed Elevated,Bedrails Scooting Scooting to Edge of Bed Maximum Assistance PT-Transfer Assessment Sit to and From Stand Sit to and from Stand Maximum Assistance,2 Person Assistance,Use of Upper Extremities Equipment Transfer Assistive Device Gait Belt,Small Based Quad Cane,Mechanical Lift Orthotic/Prosthetic Devices or Brace: No Transfers Transfer Destination Chair Transfer Technique Mechanical Lift Transfer Ability Level of Assist Total Assistance Comments Mobility Comments Pt in bed upon arrival and agreeable to try standing again. Max A x2 for sup<>sit and scooting EOB. Pt used bed rails to help assist pulling himself forward but has poor strength and trunk control and is unable to really assist himself. Once EOB, raised bed higher to assist pt w/ sit<> stand. Pt attempted three times and on second attempt was able to get mostly up and third attempt stood w/ QC and Max A x2. Pt unable to tolerate standing more than ~ 10 seconds and sat back down. Jose transfer from EOB to chair. Pt left in chair w/ all needs in reach. Gait Assessment Comments Gait Comments Unable at this time. Stair Climbing Assessment Comments Stair Climbing Comments No stairs in home environment. PT-Balance Assessment Sitting Balance and Reactions Static Sitting Balance Ability Fair Dynamic Sitting Balance Ability Fair Standing Balance and Reactions Static Standing Balance Ability Poor Dynamic Standing Balance Ability Poor Device Used QC M5 PT-IP Objective Assessments Start: 12/25/21 17:05 Freq: NEEDED Status: Active Protocol: Document 01/13/22 16:54 AW (Rec: 01/13/22 17:37 AW [id number]) Orientation Orientation/Cognition Level of Alertness Alert Orientation Name,Date,Day of Week,Place, Situation Language Function Ability No Deficits Noted Safety Awareness Decreased Safety Awareness Gross Range of Motion Upper Extremity ROM Impairments Pt unable to move his LUE and has tone and contractures. Lower Extremity ROM Assessment Bilaterally Impaired Impairments limited due to BLE lymphedema Strength Lower Extremity Strength Assessment Bilaterally Impaired Comments Strength Comments LLE: knee flexion: 2-/5 but 0/ 5 otherwise RLE: 3-/5 except ankle 2-/5 Sensation Assessment Sensation Gross Sensation Left UE Impaired,Left LE Impaired Light Touch Absent Proprioception (Position) Impaired Muscle Tone Muscle Tone WNL No Other Assessments Other Other Assessments Pt has chronic BLE lymphedema and elephantiasis. Bilateral distal feet with significant skin changes and papillomas obscuring toes. M6 PT-IP Treatment Start: 12/25/21 17:05 Freq: NEEDED Status: Active Protocol: Document 01/16/22 11:20 KS (Rec: 01/16/22 14:03 KS [id number]) Physical Therapy Treatment Education Education Provided Weight Bearing Status,Safety M7 PT-IP Assessment and Plan Start: 12/25/21 17:05 Freq: NEEDED Status: Active Protocol: Document 01/16/22 11:20 KS (Rec: 01/16/22 14:03 KS [id number]) PT Summary Assessment and Plan Potential Rehabilitation Potential Fair Status of Condition at Evaluation Evolving Summary Impairments Pain,ROM,Strength,Balance, Sensation,Tone,Bed Mobility, Transfers,Gait Assessment Summary Pt had some improvement today and was able to stand from highly raised bed w/ Max A x2 w/ QC and feet blocked from sliding forward. He had flexed posture and was unable to extend hips to stand more upright. He tolerated standing for only ~10 seconds. He requires Max A x2 for bed mobility and mechanical lift for transfers. He will require SNF to improve strength and mobility. Goals Bed Mobility Goal Minimal Assistance Transfer Goal Minimal Assistance,Cane Other Goals - pt will transfer with min assist using slide board Days to Meet Goals 20 Frequency of Treatment Frequency Of Treatment Once a Day Treatment Plan Physical Therapy Treatment Plan Bed Mobility Training,Transfer Training,Gait Training, Therapeutic Exercise,Balance Retraining,Post Op Education, Discharge Planning,Hot or Cold Pack,Neuromuscular Re-ed Other Recommendations and Next Treatment bed mobility, sit to stand ( Focus use bed tilt feature as needed ); consider slide board transfer (if slide board can accommodate pt's weight); transfer with QC if able Precautions Other Precautions falls Weight Bearing Status Weight Bearing Status Weight Bear as Tolerated Allowed Weight Bearing Amount (enter % WBAT RLE or #) (%) Recommendations To Nursing Amount of Assist Needed Mechanical Lift Discharge Recommendations PT Discharge Recommendations Home with 20/04 Assist Available,Home Health,SNF Rehab,Home vs SNF Transportation Needs at Discharge Wheelchair/Cabulance
--- NOTE | 2022-01-16 13:30 | CM.DPC ---
DCP Cont: Per MD, pt's pain medication was increased yesterday but per PT pt was still barely able to bare any weight when they attempted standing with him. OT orders placed today and will continue to try working with pt today. SW spoke to pt's [facility] Swimming Professor Neda ([phone]) and updated on the struggles with not having any updated info from [facility] on pt's assessment and no referral to [facility] in [place] yet and she has not had any other updates either but will continue to try to reach out to [facility]. She also provided contact for Box Covering Machine Operator with [facility] Leora Johnson ([phone]) and SW left this person a msg as well. Pt's [facility] crossing watchman Jennifer irvin was full and not accepting messages. ZACK finally was able to contact Christy Sr ([phone]) and she confirms she is the [facility] Associate Manager and would be the one to screen for [facility] [place] and SW updated her on pt status and situation and barrier to placement and urgent need to find SNF and maybe LTC vs return home with PATRICA. ZACK faxed requested updated clinicals (Facesheet, H&P, MAR, Labs, last 7 days MD prog notes, PT notes, PASRR, COVID vax copy) to fax [phone]. ZACK forwarded Christy Sr email and contact to CM team as well. Plan: ZACK to follow closely with Christy Sr towards determining if pt could be accepted at [facility] [place] for rehab towards determining then home with PATRICA vs LTC placement (Transitional Care is not supervisor intermediates but rehab). Greta Myers MSW
[2022-01-16] MEDS: SIMETHICONE 80 MG TABLET PO (14:03)
--- NOTE | 2022-01-16 14:56 | P.PN_ITS ---
Subjective Subjective Date Patient Seen: 01/16/22 Time Patient Seen: 14:57 Interval history: Patient is complaining of moderate right foot pain with weight-bearing, although he was able to weightbear with physical therapy today with his new prescription of oxycodone 10 mg.? He denies any new numbness or tingling.? He has a history of chronic elephantitis and morbid obesity.? There has been much difficulty finding facility placement for him upon discharge. Exam Vital Signs (past 8 hours): - 01/16/22 08:00 01/16/22 08:34 Temperature 97.5 F L Pulse Rate 84 84 Respiratory Rate 16 Blood Pressure 142/68 H 142/68 H Pulse Oximetry 92 Oxygen Delivery Method Room Air Oxygen Flow Rate 0 Narrative Exam Narrative: Pleasant 61-year-old male, resting comfortably in his chair, no acute distress. Right foot: He is able to wiggle his toes, there is chronic elephantitis and lymphedema. Dressing is clean, dry, intact. Objective Labs Result Diagrams: 01/14/22 07:30 01/13/22 05:07 [facility] Medical History Asthma Chronic acquired lymphedema HTN (hypertension) Hyperlipidemia Morbid obesity with body mass index (BMI) of 40.0 to 49.9 Obstructive sleep apnea (04/03/20) Family History Family/Other Obesity Hypertension Diabetes mellitus Heart disease Dementia Social History household members: none Smoking Status: Never smoker additional social history: Had lived independently but failure to thrive and care deficits. Smoking 18 g of marijuana daily Assessment & Plan Post-op Postoperative Procedures: Procedures Operation Date: 01/13/22 07:45 Actual Procedure Side Surgeon p hindfoot arthrodesis nail ankle Right Marlin Martinez MD Postoperative day: 3 Postoperative plan narrative: Stable status post right ankle and hindfoot arthrodesis nail Postoperative plan narrative: May be weightbear as tolerated on the operative extremity in the soft dressing. Dressing may be changed to reinforced as indicated. The extremity may be washed as needed but no showers or soaking of the incisions. Sutures will remain in place 2-4 weeks. Should follow-up with Dr. Martinez in Orthopedic office in 2-4 weeks for suture removal. Will resume Lovenox for DVT prophylaxis while in the hospital -continue with Tylenol scheduled an oxy 5-10 mg as needed for pain.
[2022-01-16] MEDS: METOCLOPRAMIDE 10 MG/2 ML INJ IV ×2 (15:38→21:10)
[2022-01-16] MEDS: BISACODYL 10 MG SUPP PR (15:52)
--- NOTE | 2022-01-16 16:48 | PC.NURSE ---
This afternoon, pt agreed to turning in bed for placement of suppository. This nurse able to assess coccyx and perineum during the process. Diffuse redness with purple patches, all blanchable. No skin breakdown noted between the folds of the buttocks. Suppository placed without difficulty. Pt offered pillow to help redistribute weight and take pressure of coccyx and perineum area but pt refused. Pt returned to supine position.
--- NOTE | 2022-01-16 17:05 | OT.IPNOTE ---
Touched base with pt for OT eval and pt wanting to do OT eval tomorrow after getting pain medications. To coordinate with nurse tomorrow. Able to get prior level of function and history from pt. No charge
[2022-01-16 17:25] VITALS: PULSE 87; O2SAT 93
--- NOTE | 2022-01-16 17:32 | P.PN_ITS ---
Subjective Subjective Date Patient Seen: 01/16/22 Interval history: Patient is status post repair of a trimalleolar fracture. He is still unable to bear weight, patient complains of constipation as well. Exam Vital Signs (past 8 hours): - 01/16/22 17:25 Pulse Rate 87 Pulse Oximetry 93 Oxygen Delivery Method Room Air Oxygen Flow Rate 0 Narrative Exam Narrative: Pleasant gentleman sitting in a chair in no obvious distress Resp Other: Lungs clear to auscultation Cardio Other: Cardiac exam: Regular rate rhythm normal S1-S2 GI Other: Abdomen soft and nontender Extrem Other: Extremities bilateral lymphedema with Gurpreet bandages in place Objective Labs Result Diagrams: 01/14/22 07:30 01/13/22 05:07 [facility] Medical History Asthma Chronic acquired lymphedema HTN (hypertension) Hyperlipidemia Morbid obesity with body mass index (BMI) of 40.0 to 49.9 Obstructive sleep apnea (04/03/20) Family History Family/Other Obesity Hypertension Diabetes mellitus Heart disease Dementia Social History household members: none Smoking Status: Never smoker additional social history: Had lived independently but failure to thrive and care deficits. Smoking 18 g of marijuana daily Assessment & Plan Assessment & Plan narrative: Right ankle fracture, * Patient has suffered a distal fibular fracture, and medial malleolar fracture which has been reduced and splinted * Given his significant morbid obesity he will be unable to transfer given the fracture right ankle ?he has remained inpatient due to difficult placement * ?patient is status post repair of a trimalleolar fracture, he is having significant pain postoperatively * Will switch oxycodone to Percocet, increase Percocet 10 mg prior to physical therapy * Continue physical therapy occupational therapy * He is currently unable to bear weight, is on safe to transfer, unable to be discharged home. * As patient is unable to bear weight and successfully transfer may need to consider placement once again Type 2 diabetes * Insulin sliding scale inpatient * Home glimeperide 4 mg daily on-board 3. Morbid obesity, class 3 * This clearly had a significant impact on his morbidity, as his obesity likely is the cause of the right ankle fracture which is resulting in his inability to move and pivot at this point * His obesity is his rate limiting factor for discharge either home or to [facility] 4. Hypertension * Continue home carvedilol 25 mg bid, patient reports he no longer takes lisinopril, and is unsure why * If not allergic to lisinopril would start low-dose lisinopril given his type 2 diabetes * 5. Obstructive sleep apnea * Patient denies use of CPAP at home' 6. Sacral decubitus ulcer, stage III/IV * Given his significant obesity, and inability to move this is problematic as he is at high risk for further skin breakdown 7. Elephantiasis, secondary to chronic lymphedema * Chronic, continue his usual wound dressing 8. Intertrigo, likely Lanie, affecting many folds * Will start topical clotrimazole/betamethasone * Will start PO Diflucan 150 mg once weekly for 4 weeks (started December 25. Asthma, likely made worse by copious marijuana use * Continue the albuterol inhaler, as needed, encouraged him to take breathing treatments as offered by respiratory therap * 10. Insomnia * Continue home trazodone 50 mg daily * Nightly Benadryl 50 mg, as needed, along with Benadryl 50 mg at [id number]. Hypothyroidism, patient reports he is not on levothyroxineWill check his TSH level in [facility] came back 4.7, discontinue L-thyroxine, will need repeat TSH ultimately Time Spent With Patient Critical Care time: I spent a total of [] minutes of critical care time on this patient's care today; this time is exclusive of procedural time.
[2022-01-16] MEDS: ATORVASTATIN 20 MG TABLET PO (19:50)
[2022-01-16 19:51] VITALS: BP 127/78; PULSE 85
[2022-01-16] MEDS: TRAZODONE 50 MG TABLET PO (19:52)
[2022-01-16] MEDS: diphenhydrAMINE 25 MG TABLET 50 MG PO (21:09)
[2022-01-16] MEDS: SODIUM CHLORIDE 0.9% FLUSH 10 ML IV (21:11)
[2022-01-16 23:00] VITALS: RESP 22; TEMP 36.9
[2022-01-17] MEDS: ACETAMINOPHEN 325 MG TABLET 650 MG PO ×4 (00:07→23:57)
[2022-01-17] MEDS: OXYCODONE IR 5 MG TABLET PO (03:46)
[2022-01-17] MEDS: LEVOTHYROXINE 25 MCG TABLET PO (05:46)
[2022-01-17 07:55] VITALS: BP 137/66; PULSE 79; RESP 16; TEMP 36.2; O2SAT 92
[2022-01-17] MEDS: INSULIN LISPRO 100 UNIT/ML 3ML VIAL SUBCUT ×2 (08:55→13:08)
[2022-01-17] MEDS: polyethylene glycoL 3350 17 GM POWD.PACK PO (09:00)
[2022-01-17] MEDS: DOCUSATE 100 MG CAPSULE 200 MG PO (09:00)
[2022-01-17] MEDS: OXYCODONE IR 5 MG TABLET 10 MG PO ×3 (09:01→20:55)
[2022-01-17] MEDS: PANTOPRAZOLE DR 20 MG TABLET PO (09:01)
[2022-01-17] MEDS: SODIUM CHLORIDE 0.9% FLUSH 10 ML IV ×2 (09:02→21:04)
[2022-01-17] MEDS: carvediloL 12.5 MG TABLET 25 MG PO ×2 (09:07→20:55)
[2022-01-17] MEDS: ENOXAPARIN 40 MG/0.4 ML SYRINGE SUBCUT ×2 (09:08→20:55)
[2022-01-17] MEDS: PSYLLIUM HUSK 1 PACKET PO (09:08)
[2022-01-17] MEDS: GLIMEPIRIDE 2 MG TABLET 4 MG PO (09:08)
[2022-01-17 09:30] VITALS: RESP 16; O2SAT 92
[2022-01-17] MEDS: ONDANSETRON 4 MG ODT SL (09:57)
--- NOTE | 2022-01-17 10:56 | PT.IPTN ---
Current Diagnoses Morbid (severe) obesity due to excess calories (12/28/21) Lymphedema, not elsewhere classified (12/28/21) Other fracture of right lower leg, initial encounter for closed fracture (12/28/21) Dislocation of right ankle joint, initial encounter (12/28/21) Body mass index [BMI] 50.0-59.9, adult (12/28/21) Surgery Performed Operation Date: 01/13/22 07:45 Actual Procedures p hindfoot arthrodesis nail ankle(Right) - Marlin Martinez MD Physical Therapy Treatment Note M2 PT-IP Current Condition Start: 12/25/21 17:05 Freq: NEEDED Status: Active Protocol: Document 01/13/22 16:54 AW (Rec: 01/13/22 17:37 AW [id number]) Physical Therapy Current Condition Current Condition Evaluation Date 01/13/22 Treatment Diagnosis R trimalleolar ankle fx s/p IM nina; L hemiparesis; impaired mobility Onset Date 01/05/22 M3 PT-IP Subjective Start: 12/25/21 17:05 Freq: NEEDED Status: Active Protocol: Document 01/17/22 10:18 KS (Rec: 01/17/22 13:05 KS [id number]) Subjective Physical Therapy Visit Type Type Treatment Note Visit Start Time 10:18 Visit Stop Time 10:56 Total Visit Minutes 38 Notes WBAT RLE. Co-treat w/ OT due to pts need for high level assist. Physical Therapy Visit Comments Patient Comments Pt agreeable to working w/ therapy. M4 PT-IP Mobility and Gait Start: 12/25/21 17:05 Freq: NEEDED Status: Active Protocol: Document 01/17/22 10:18 KS (Rec: 01/17/22 13:05 KS [id number]) PT-Bed Mobility Assessment Supine to Sit Supine to Sit Maximum Assistance,2 Person Assistance,Head of Bed Elevated,Bedrails Scooting Scooting to Edge of Bed Maximum Assistance PT-Transfer Assessment Sit to and From Stand Sit to and from Stand Maximum Assistance,2 Person Assistance,Use of Upper Extremities Equipment Transfer Assistive Device Gait Belt,Small Based Quad Cane,Mechanical Lift Orthotic/Prosthetic Devices or Brace: No Transfers Transfer Destination Chair Transfer Technique Mechanical Lift Transfer Ability Level of Assist Total Assistance Comments Mobility Comments Pt in bed upon arrival and able to move RLE slightly towards EOB today but fatigues quickly and ultimately still required Max A x2 w/ HOB elevated for sup<>sit and scooting EOB. When pt EOB w/ feet on floor his sitting balance was improved today and he was able to lean forward to put weight through RLE. Attempted sit<>Stand w/ Max A x2 and raised bed but pt unable to complete. RN arrived for 3rd PA and pt successfully completed sit<> stand Max A x3 and remained standing ~15 seconds. He then requested to sit and be transferred to chair. Used mechanical lift to transfer pt from bed to chair. Pt left in chair w/ wafle cushion in place and all needs in reach. Gait Assessment Comments Gait Comments Unable at this time. Stair Climbing Assessment Comments Stair Climbing Comments No stairs in home environment. PT-Balance Assessment Sitting Balance and Reactions Static Sitting Balance Ability Good Dynamic Sitting Balance Ability Fair Standing Balance and Reactions Static Standing Balance Ability Poor Dynamic Standing Balance Ability Poor Device Used QC M5 PT-IP Objective Assessments Start: 12/25/21 17:05 Freq: NEEDED Status: Active Protocol: Document 01/13/22 16:54 AW (Rec: 01/13/22 17:37 AW [id number]) Orientation Orientation/Cognition Level of Alertness Alert Orientation Name,Date,Day of Week,Place, Situation Language Function Ability No Deficits Noted Safety Awareness Decreased Safety Awareness Gross Range of Motion Upper Extremity ROM Impairments Pt unable to move his LUE and has tone and contractures. Lower Extremity ROM Assessment Bilaterally Impaired Impairments limited due to BLE lymphedema Strength Lower Extremity Strength Assessment Bilaterally Impaired Comments Strength Comments LLE: knee flexion: 2-/5 but 0/ 5 otherwise RLE: 3-/5 except ankle 2-/5 Sensation Assessment Sensation Gross Sensation Left UE Impaired,Left LE Impaired Light Touch Absent Proprioception (Position) Impaired Muscle Tone Muscle Tone WNL No Other Assessments Other Other Assessments Pt has chronic BLE lymphedema and elephantiasis. Bilateral distal feet with significant skin changes and papillomas obscuring toes. M6 PT-IP Treatment Start: 12/25/21 17:05 Freq: NEEDED Status: Active Protocol: Document 01/17/22 10:18 KS (Rec: 01/17/22 13:05 KS [id number]) Physical Therapy Treatment Education Education Provided Weight Bearing Status,Safety M7 PT-IP Assessment and Plan Start: 12/25/21 17:05 Freq: NEEDED Status: Active Protocol: Document 01/17/22 10:18 KS (Rec: 01/17/22 13:05 KS [id number]) PT Summary Assessment and Plan Potential Rehabilitation Potential Fair Status of Condition at Evaluation Evolving Summary Impairments Pain,ROM,Strength,Balance, Sensation,Tone,Bed Mobility, Transfers,Gait Assessment Summary Pt required Max A x2 for bed mobility and Max A x3 for sit< >Stand from raised bed today. He attempted to stand 3 times but was only successful on third attempt and tolerated standing ~15 seconds. Flexed posture/inability to extend through hips. Continues to require mechanical lift for transfers as he is unable to advance LE or tolerated standing for long enough to perform transfer. Goals Bed Mobility Goal Minimal Assistance Transfer Goal Minimal Assistance,Cane Other Goals - pt will transfer with min assist using slide board Days to Meet Goals 20 Frequency of Treatment Frequency Of Treatment Once a Day Treatment Plan Physical Therapy Treatment Plan Bed Mobility Training,Transfer Training,Gait Training, Therapeutic Exercise,Balance Retraining,Post Op Education, Discharge Planning,Hot or Cold Pack,Neuromuscular Re-ed Other Recommendations and Next Treatment bed mobility, sit to stand ( Focus use bed tilt feature as needed ); consider slide board transfer (if slide board can accommodate pt's weight); transfer with QC if able Precautions Other Precautions falls Weight Bearing Status Weight Bearing Status Weight Bear as Tolerated Allowed Weight Bearing Amount (enter % WBAT RLE or #) (%) Recommendations To Nursing Amount of Assist Needed Mechanical Lift Discharge Recommendations PT Discharge Recommendations Home with / Assist Available,Home Health,SNF Rehab,Home vs SNF Transportation Needs at Discharge Wheelchair/Cabulance
--- NOTE | 2022-01-17 11:00 | OT.IP.EVAL ---
Current Diagnoses Morbid (severe) obesity due to excess calories (12/28/21) Lymphedema, not elsewhere classified (12/28/21) Other fracture of right lower leg, initial encounter for closed fracture (12/28/21) Dislocation of right ankle joint, initial encounter (12/28/21) Body mass index [BMI] 50.0-59.9, adult (12/28/21) Surgery Performed Operation Date: 01/13/22 07:45 Actual Procedures p hindfoot arthrodesis nail ankle(Right) - Marlin Martinez MD Past Medical History (Last Reviewed 01/15/22 @ 08:10 by Anaya Santos PA-C) Asthma Chronic acquired lymphedema HTN (hypertension) Hyperlipidemia Morbid obesity with body mass index (BMI) of 40.0 to 49.9 Obstructive sleep apnea (04/03/20) Occupational Therapy Inpatient Evaluation/Re-Eval M1 PT/OT-IP Prior Functional Status Start: 12/25/21 17:05 Freq: NEEDED Status: Active Protocol: Document 01/17/22 10:00 [facility] (Rec: 01/17/22 14:35 [facility] [id number]) Medical Review Prior Functional Status Medical History Reviewed Yes Communication Independent Mobility and Gait Daljit uses a SBQC to transfer to his power wc, toilet, and lift chair. Activities of Daily Living and IADL's Pt states was able to use other sales support worker and dressing stick to assist to get dressed while seated for his shorts. Pt states struggled to get his shirt on. Pt states lately has been incontinent. Pt states prior was able to stand briefly on his legs long enough to pull up his shorts. Prior Functional Level (Other details) PMH includes CVA with left hemiparesis, chronic BLE lymphedema, morbid obesity ( BMI>50), elephantiasis, type 2 diabetes, hypertension, hyperlipidemia, reactive airway disease, obstructive sleep apnea. Social History Household Members none Living Arrangements Apartment/Condo Number of Floors (Floors) One Floor Number of Stairs To Enter/Railing? Ramp to enter his apartment. Home Environment High Toilet,Walk in Shower Home Equipment Quad Cane,Power Wheelchair/ Scooter,Manager Enterprise,Lift Recliner, Grab Bars Near Toilet,Grab Bars In Shower Additional Social History Comment Pt lives alone with caregiver support three days/week to assist with IADLs. Caregiver also wraps BLE for lymphedema management and for bathing/ hygiene needs, and IADLs. M2 OT-IP Current Condition Start: 12/25/21 15:17 Freq: Status: Active Protocol: Document 01/17/22 10:00 [facility] (Rec: 01/17/22 14:35 [facility] [id number]) Occupational Therapy Current Condition Current Condition Evaluation Date 01/17/22 Treatment Diagnosis Right Trimalleolar ankle and s /p IM nina Diagnosis Onset Date 12/28/21 Weight Bearing Status Weight Bearing Status Weight Bear as Tolerated M3 OT- IP Subjective and Pain Start: 12/25/21 15:17 Freq: Status: Active Protocol: Document 01/17/22 10:00 [facility] (Rec: 01/17/22 14:35 [facility] [id number]) OT- Subjective Occupational Therapy Visit Type Type Initial Evaluation Visit Start Time 10:00 Visit Stop Time 11:00 Total Visit Minutes 60 Occupational Therapy Visit Comments Patient Comments Pt having ankle sx on 01/13/22 and now WBAT. Patient/Caregiver Goals TO be able to go home eventually. OT Pain Assessment Pain When Pain Assessed During Mobility Pain Present Pain Present Pain Reported Location Right Ankle Intensity 6 Scale Used Numeric (0 - 10) M4 OT- IP ADL's Start: 12/25/21 15:17 Freq: Status: Active Protocol: Document 01/17/22 10:00 [facility] (Rec: 01/17/22 14:35 [facility] [id number]) OT IRK-Hpvs-Ibymjhf General Evaluation Self-Feeding Ability Standby Assistance Areas Needing Assistance Cutting Food,Opening Containers Comments OT Self-Feeding Comments Set-up assist OT ADL-Grooming General Evaluation Grooming Ability Standby Assistance Areas Needing Assistance Retrieving/Set-up of Grooming Items Comments OT Grooming Comments Pt able to complete after set- up. OT ADL-Oral Care General Eval Oral Care Ability Standby Assistance Areas of Assistance Retrieving/Set-Up of Items OT ADL-Dressing General Eval Upper Body Dressing Ability Moderate Assistance Lower Body Dressing Ability Total Assistance. Coban place around his right foot for ostrich farmer an unable to get a sock on the pt due to bandage on his foot Comments OT Dressing Comments Pt needing MODA to help get the gown over his left arm. OT ADL-Toileting General Evaluation Toileting Ability Total Assistance Comments OT Toileting Comments Pt able to use the urinal in bed and needing to use a bed osman for bowel movement. Nursing aid assist and having to use the michael to lift the pt up so able to get the bed osman below him. OT ADL-Bathing General Evaluation Bathing Ability Moderate Assistance Comments OT Bathing Comments Pt able to wash his chest, groin, and assist to raise his left arm up so therapist able to assist to wash his left armpit. Pt states to have the nursing aid assist with other hygiene needs later. M5 OT- IP IADL's Start: 12/25/21 15:17 Freq: Status: Active Protocol: Document 01/17/22 10:00 [facility] (Rec: 01/17/22 14:35 [facility] [id number]) OT-Instrumental Activities of Daily Living Home Safety Awareness Awareness of Need for Assistance at Home Good Awareness Meal Preparation Meal Preparation Caregiver Provides Assist Underwriter Mortgage Loan Underwriter Mortgage Loan Caregiver Provides Assist M6 OT- IP Functional Cognition Start: 12/25/21 15:17 Freq: Status: Active Protocol: Document 01/17/22 10:00 [facility] (Rec: 01/17/22 14:35 [facility] [id number]) Cognitive Factors Limiting Selfcare Function Cognitive Ability Level of Alertness Alert Patient Orientation Name,Age,Place,Situation Attention Span Ability Capable of Focused Attention, Capable of Sustained Attention Ability to Follow Commands Able to Follow One Step Commands Memory Description Short Term Impaired Problem Solving Ability Needs Assist to Identify Solutions Cognitive Comments Cognitive Assessment Comments Pt has decreased short term memory and needing repeated cues at times and step by step directions of what to do and expect. OT- Vision and Hearing OT- Vision Assessment Vision History Cataracts Vision Assessment Comments Pt a little hard of hearing and states has glasses which at at home and states that he was recently found to have cataracts. M7 OT- IP Mobility and Balance Start: 12/25/21 15:17 Freq: Status: Active Protocol: Document 01/17/22 10:00 [facility] (Rec: 01/17/22 14:35 [facility] [id number]) OT- Bed Mobility Assessment Supine to Sit Supine to Sit Assist Moderate Assistance,2 Person Assistance,Head of Bed Elevated,Bedrails Scooting Scooting to Edge of Bed Maximum Assistance,1 Person Assistance OT-Transfer Assessment Sit to and From Stand Sit to and from Stand Maximum Assistance,Total Assistance,2 Person Assistance Technique Transfer Destination Bed,Chair Transfer Technique Mechanical Lift Comments Mobility Comments Pt able to more his RLE some to get to the end of the bed a few inches at a time and needing assist to move his LLE to the edge of the bed. Pt then needing assist to help get his trunk upright and legs off the bed with MAX A x2. OT- Balance Assessment Sitting Balance and Reactions Static Sitting Balance Ability Good Standing Balance and Reactions Static Standing Balance Ability Poor Comments Other Balance Tests/Deviations/Treatment Once pt's feet on the floor : has good seating balance. M8 OT- IP Objective Assessments Start: 12/25/21 15:17 Freq: Status: Active Protocol: Document 01/17/22 10:00 [facility] (Rec: 01/17/22 14:35 [facility] [id number]) OT Gross Range of Motion Upper Extremity Range of Motion Assessment Left Impaired OT Strength Comments Strength Comments Pt had contractures with right hand , flexed at wrist,elbow, and internally rotated at his right shoulder. Pt has no functional movement in his left UE. OT-Muscle Tone Assessment Muscle Tone WNL No Comments Muscle Tone Comments Hypertonicity in LUE M9 OT- IP Assessment and Plan Start: 12/25/21 15:17 Freq: Status: Active Protocol: Document 01/17/22 10:00 [facility] (Rec: 01/17/22 14:35 [facility] [id number]) OT Summary Assessment and Plan Potential Rehabilitation Potential Fair Analytic Complexity at Evaluation High Summary OT Impairments Strength,Balance,Tone, Functional Mobility,Self- Feeding,Grooming,Dressing, Toileting,Bathing,Toilet Transfers,Shower Transfers, Activity Tolerance Progress Towards Goals Slow Progress due to Pain,Slow Progress due to Medical Issues,Slow Progress due to Activity Tolerance,Slow Progress due to Cognition Assessment Summary Pt high complexity and main barriers are pain, decreased strength, balance, and mobility needs. Pt having right ankle sx on 01/13/22 and now WBAT. Prior to surgery pt had not been able to put any weight on his RLE as was NWB since 12/28/21. Pt is motivated to get better. Pt will benefit from skilled rehab to maximize his independence with his ADl and mobility needs. Goals Grooming Goal Standby Assistance Dressing Goal Minimal Assistance Toileting Goal Moderate Assistance Bathing Goal Moderate Assistance Toilet Transfer Goal Minimal Assistance Shower Transfer Goal Moderate Assistance Days to Meet Goals 45 Frequency of Treatment Frequency Of Treatment Once a Day Treatment Plan OT Treatment Plan ADL Training,Functional Cognition Training,Functional Mobility,Patient/Family Education,Discharge Planning Other Treatment Recommendations and Next Pt to be able to stand with Treatment Focus MAX A x3 for 30 seconds with SBQC to help improve standing balance in prep for LB dressing needs. Discharge Recommendations OT Discharge Recommendations SNF Rehab,[facility] Transportation Needs at Discharge Wheelchair/Cabulance
--- NOTE | 2022-01-17 11:51 | CM.DPC ---
[facility] Cont: It is noted that Greta, PROTECTION MGR, was able to reach out to Christy Sr, at [facility], after initially contacting [facility] Perpetual Inventory Clerk. Have been trying to get patient into [facility] in [place], but had not heard back. Greta was able to speak to Christy, and clinicals were sent to her. She also included an email with Christy's email address. Called Eddario Orin and left her a voice mail message inquiring about the status, if she was able to review clinicals. Sent her an email as well. It was then noted, from a return email, that she is out of the office until Thursday, but did send an email to her associate. Inquired the status, if case was reviewed and if patient can get accepted to [facility]. Had also spoken to Neda, [facility] Ophthalmic Aide. She indicated, she is working with patient, but not out of the city in the [place] area, this is handled by [facility]. Neda would be the contact if patient is able to return home. There is also another contact, Leora Johnson, who this DC case planner may attempt, since it is noted that Greta attempted to reach her. Called Leora Johnson at [phone]. Was able to get in contact with her. She stated that Christy has submitted all clinical information to the [facility] in [place], and they are reviewing. She indicated to follow up Thursday with Christy to see if she knows if patient is accepted. Asked her what the next step would be if they do not accept patient. She stated that Jennifer Bryan is his Home and Procurement Forester and would keep the case and attempt another facility. Jennifer is on leave until Thursday, and this [facility] has spoken to her before. P: [facility] to continue to work on placement. At this time, there are some contacts, Christy being the main contact to see if patient is accepted at [facility]. Will follow up Thursday. Jennifer is also contact, have her number in previous notes, in case [facility] does not accept. Vanna Pugh RN/Quality Consultant
--- NOTE | 2022-01-17 11:56 | P.OP_ITS ---
Operative Date/Time/Diagnoses Date of procedure: 01/17/22 Time of procedure: 10:20 Pre-op diagnosis: Hallux valgus right foot Osteomyelitis right foot Diabetic ulcer right foot with osteomyelitis Post-op diagnosis: same Procedure & Clinicians Procedure: Nickerson arthroplasty right correction hallux valgus including resection of head of 1st metatarsal bone right and excision proximal and the proximal phalanx righ t great toe with pinning CPT code 77314 Debridement plantar ulceration right great toe with sesamoidectomy of great toe CPT code 75328-42 Same procedure as scheduled: Yes Indications: Patient is an 85-year-old male a right neuropathic foot ulceration osteomyelitis and severe hallux valgus deformity. He has persistent ulceration and infection despite exhaustive wound care and antibiotics. Due to his severe deformity is at high risk for recurrence and worsening infection and ultimate requirements for amputation. He has been indicated for a resection arthroplasty type procedure within it attempted deformity correction and fusion with pinning, sesamoidectomy and plantar ulcer debridement. We discussed risk for recurrence, worsening, persistence of infection need for remove of pins early and recurrence of deformity and ultimate requirements for amputation. The risks and benefits of the procedure have been discussed with the patient even opportunity to ask questions. The risks of surgery include but are not limited to infection, malunion, nonunion, persistence of pain, damage to nerves and blood vessels, posttraumatic arthritis, DVT, PE, cardiopulmonary complications and . The patient expressed a thorough understanding of the risks and benefits of surgery and has elected to proceed. Consent was signed in the office. Office notes from his supervisor [employer] and audit mgr were reviewed by the medical team. Postoperatively he would be in a Darco offloading shoe and heel weight-bearing for a 1 stage resection arthroplasty and pin stabilization of the 1st metatarsophalangeal joint for a chronic plantar ulcer with osteomyelitis and sesamoid excision. We also discussed possible Achilles lengthening based on intraoperative examination Surgeon: Marlin Martinez Click Yes if Unassisted: Yes Anesthesia Type: General and Local Operative Notes Findings: Range of motion with the knee extended demonstrated at least 80? of dorsiflexion so no Achilles lengthening was completed. There is a severe hallux valgus deformity with plantar medial ulceration that probed to bone. There was a separate debridement of the plantar ulceration and plantar sesamoidectomy. Separate dorsal incision for debridement of the MTP joint resection of the 1st metatarsal head and proximal phalanx base. The joint was irrigated and then aligned and pinned with 2x 062 K-wires under compression Closure Type: primary Specimen(s): other Prosthetic devices, grafts, tissues, transplants, or devices: Bone was sent for Gram stain and culture--1st metatarsal and proximal phalanx base Estimated Blood Loss (mL): 20 Blood products transfused: none Tourniquet time (min): 53 Procedure in detail: Patient was seen in the preoperative area the site of surgery marked informed consent confirmed. He was brought back to the operating room by the anesthesia team positioned supine on operative table. All bony prominences well padded. A nonsterile thigh tourniquet was placed. General anesthesia was administered. Right lower extremity was prepped and draped in standard sterile fashion. A formal time-out procedure was performed confirming the patient's side site of surgery administration of appropriate preoperative antibiotics. All were in agreement. Exam under anesthesia of the patient's ankle range of motion was undertaken. He got about 8-10? of dorsiflexion with the knee extended so no Achilles tendon lengthening was deemed necessary. [place] exsanguination was then completed the tourniquet elevated to 250 mmHg. Attention was turned to the right great toe is severe hallux valgus deformity. Separate dorsal incision was made just medial to the EHL tendon was taken down through the skin subcutaneous tissue into the capsule and the deformed and arthritic 1st MTP joint was exposed. The TPS saw was used to resect the 1st metatarsal head and the proximal phalanx base back to bleeding bone additional capsular releases were utilized to help reduce the deformity. Once this was completed and a separate plantar ulceration debridement and sesamoidectomy as described below were completed, the wound was thoroughly irrigated with 3 L of saline using the cysto tubing. Drapes and gloves were changed then 2x 062 double-ended K-wires were advanced from the toe through the proximal phalanx and into the metatarsal to hold alignment. These were drilled under cooling and compression. Alignment was checked on AP and lateral intraoperative fluoroscopy once this was satisfactory the wires were bent and cut and caps placed. Next vancomycin powder was placed into the wound and this was closed with 2-0 PDS 4-0 Monocryl and 3-0 nylon suture. Tourniquet was released before final closure. Hemostasis was achieved. Plantar ulceration debridement and medial and lateral sesamoidectomy: Separate plantar medial ulceration was ellipsed sized out of full-thickness. This went down directly to the metatarsal head. After this was excised through the dorsal incision the area was planed down including the medial eminence using the TPS saw. Next the medial and lateral sesamoids were identified and resected to reduce any remaining plantar prominence. [place] was also used to debride redundant soft tissues and capsule. This was thoroughly irrigated with cysto tubing and saline. Next vancomycin powder was placed deep after gloves and instruments were changed. Deep closure was performed with 2-0 PDS followed by 4-0 Monocryl and 3-0 nylon suture. Tourniquet was released prior to final closure and the toe pinked up well. 10 cc of local anesthetic were used. Hemostasis was achieved. Dressing was placed with Xeroform gauze, 4 x 4 gauze, Kerlix, ABD pad Gurpreet wrap the patient was removed from the drapes and placed back into his offloading shoe. He was woken from anesthesia and taken to the recovery room in good condition. There no immediate complications from this procedure. All counts were correct. Complications: none Post-operative Condition: stable Disposition: PACU Plan for aftercare: Heel or flatfoot weight-bearing in the Darco forefoot offloading shoe. Protect the wires. No weight-bearing without the protective shoe. Keep dressing clean dry and intact. Goal is that wires will stay in place 6-8 weeks to help achieve a fibrous union to reduce risk of deformity but will allow easy removal in the office should they become loose early. Patient will remain on his doxycycline at this point. If required there may be a change based on his final intraoperative cultures. He is being followed by infectious disease [facility]. He was previously on daptomycin. He will have a small prescription of [place] as a pain medication.
--- NOTE | 2022-01-17 19:00 | P.PN_ITS ---
Subjective Subjective Date Patient Seen: 01/17/22 Time Patient Seen: 19:01 Interval history: Patient is status post repair of a trimalleolar fracture.? He is still unable to bear weight Exam Vital Signs (past 8 hours): Oxygen Delivery Method Room Air Oxygen Flow Rate 0 Narrative Exam Narrative: Gen: Pleasant gentleman sitting in a chair in no obvious distress Objective Labs Result Diagrams: 01/14/22 07:30 01/13/22 05:07 [facility] Medical History Asthma Chronic acquired lymphedema HTN (hypertension) Hyperlipidemia Morbid obesity with body mass index (BMI) of 40.0 to 49.9 Obstructive sleep apnea (04/03/20) Family History Family/Other Obesity Hypertension Diabetes mellitus Heart disease Dementia Social History household members: none Smoking Status: Never smoker additional social history: Had lived independently but failure to thrive and care deficits. Smoking 18 g of marijuana daily Assessment & Plan Assessment & Plan narrative: Right ankle fracture, * Patient has suffered a distal fibular fracture, and medial malleolar fracture which has been reduced and splinted * Given his significant morbid obesity he will be unable to transfer given the fracture right ankle ?he has remained inpatient due to difficult placement * ?patient is status post repair of a trimalleolar fracture, he is having significant pain postoperatively * Will switch oxycodone to Percocet, increase Percocet 10 mg prior to physical therapy * Continue physical therapy occupational therapy * He is currently unable to bear weight, is on safe to transfer, unable to be discharged home. * As patient is unable to bear weight and successfully transfer may need to consider placement once again? Type 2 diabetes * Insulin sliding scale inpatient * Home glimeperide 4 mg daily on-board 3. Morbid obesity, class 3 * This clearly had a significant impact on his morbidity, as his obesity likely is the cause of the right ankle fracture which is resulting in his inability to move and pivot at this point * His obesity is his rate limiting factor for discharge either home or to fdc 4. Hypertension * Continue home carvedilol 25 mg bid, patient reports he no longer takes lisinopril, and is unsure why * If not allergic to lisinopril would start low-dose lisinopril given his type 2 diabetes 5. Obstructive sleep apnea * Patient denies use of CPAP at home' 6. Sacral decubitus ulcer, stage III/IV * Given his significant obesity, and inability to move this is problematic as he is at high risk for further skin breakdown 7. Elephantiasis, secondary to chronic lymphedema * Chronic, continue his usual wound dressing 8. Intertrigo, likely Lanie, affecting many folds * Will start topical clotrimazole/betamethasone * Will start PO Diflucan 150 mg once weekly for 4 weeks (started December 25, 2021 9.?Asthma, likely made worse by copious marijuana use * Continue the albuterol inhaler, as needed, encouraged him to take breathing treatments as offered by respiratory therap 10. Insomnia * Continue home trazodone 50 mg daily * Nightly Benadryl 50 mg, as needed, along with Benadryl 50 mg at midnight 11. Hypothyroidism, patient reports he is not on levothyroxineWill check his TSH level in [facility] came back 4.7, discontinue L-thyroxine, will need repeat TSH ultimately Time Spent With Patient Critical Care time: I spent a total of [] minutes of critical care time on this patient's care today; this time is exclusive of procedural time.
[2022-01-17 20:55] VITALS: BP 137/71; PULSE 83
[2022-01-17] MEDS: diphenhydrAMINE 25 MG TABLET 50 MG PO ×2 (20:55→23:57)
[2022-01-17] MEDS: TRAZODONE 50 MG TABLET PO (20:55)
[2022-01-17] MEDS: ATORVASTATIN 20 MG TABLET PO (20:55)
[2022-01-17 21:05] VITALS: BP 137/71; PULSE 83; RESP 22; TEMP 36.2; O2SAT 91
[2022-01-18 00:13] VITALS: PULSE 83; RESP 20; O2SAT 92
[2022-01-18] MEDS: ALBUTEROL 2.5 MG/3 ML NEB (ADULT) INH (00:13)
[2022-01-18] MEDS: LEVOTHYROXINE 25 MCG TABLET PO (06:04)
[2022-01-18] MEDS: ACETAMINOPHEN 325 MG TABLET 650 MG PO ×3 (06:04→18:20)
[2022-01-18] MEDS: OXYCODONE IR 5 MG TABLET 10 MG PO ×4 (06:04→21:56)
[2022-01-18 07:00] VITALS: BP 121/59; PULSE 78; RESP 19; TEMP 35.9; O2SAT 94
--- NOTE | 2022-01-18 07:17 | PM.PNPO.1 ---
Subjective Subjective Date Patient Seen: 01/18/22 Time Patient Seen: 07:18 Interval history: Patient states his pain is currently well managed. Denies fever or chills. No nausea vomiting. Exam Vital Signs (past 8 hours): - 01/18/22 00:13 Pulse Rate 83 Respiratory Rate 20 Pulse Oximetry 92 Oxygen Delivery Method Room Air Oxygen Flow Rate 0 Narrative Exam Narrative: Pleasant 61-year-old male, resting comfortably in bed, no acute distress.? Right foot: He is able to wiggle his toes, there is chronic elephantitis and lymphedema.? Dressing is clean, dry, intact. Const General: cooperative Orientation: alert Resp Effort & Inspection: normal respiratory effort and able to speak in complete sentences Objective Labs Result Diagrams: 01/14/22 07:30 01/13/22 05:07 [facility] Medical History Asthma Chronic acquired lymphedema HTN (hypertension) Hyperlipidemia Morbid obesity with body mass index (BMI) of 40.0 to 49.9 Obstructive sleep apnea (04/03/20) Family History Family/Other Obesity Hypertension Diabetes mellitus Heart disease Dementia Social History household members: none Smoking Status: Never smoker additional social history: Had lived independently but failure to thrive and care deficits. Smoking 18 g of marijuana daily Assessment & Plan Post-op Postoperative Procedures: Procedures Operation Date: 01/13/22 07:45 Actual Procedure Side Surgeon p hindfoot arthrodesis nail ankle Right Marlin Martinez MD Postoperative day: 5 Postoperative status: doing well Postoperative status narrative: Stable status post treatment of right ankle fracture dislocation with intramedullary nina, arthrodesis right ankle, subtalar arthrodesis Postoperative plan narrative: May be weightbearing as tolerated on the operative extremity in the soft dressing. Dressing may be changed or reinforced as indicated. No showers or soaking of the incisions. Sutures will remain in place 2-4 weeks. Should follow-up with Dr. Martinez in Orthopedic office in 2-4 weeks for suture removal. Lovenox for DVT prophylaxis while in the hospital
[2022-01-18 07:47] VITALS: O2SAT 94
[2022-01-18] MEDS: ENOXAPARIN 40 MG/0.4 ML SYRINGE SUBCUT ×2 (08:51→20:02)
[2022-01-18] MEDS: carvediloL 12.5 MG TABLET 25 MG PO ×2 (08:52→20:04)
[2022-01-18] MEDS: PANTOPRAZOLE DR 20 MG TABLET PO (08:52)
[2022-01-18] MEDS: lisinopriL 5 MG TABLET PO (08:52)
[2022-01-18] MEDS: INSULIN LISPRO 100 UNIT/ML 3ML VIAL SUBCUT ×3 (08:53→17:17)
[2022-01-18] MEDS: SODIUM CHLORIDE 0.9% FLUSH 10 ML IV ×2 (08:54→21:57)
[2022-01-18] MEDS: PSYLLIUM HUSK 1 PACKET PO (09:00)
[2022-01-18] MEDS: FLUCONAZOLE 100 MG TABLET 150 MG PO (09:01)
[2022-01-18] MEDS: GLIMEPIRIDE 2 MG TABLET 4 MG PO (09:49)
--- NOTE | 2022-01-18 11:50 | OT.IP.TRT ---
Current Diagnoses Morbid (severe) obesity due to excess calories (12/28/21) Lymphedema, not elsewhere classified (12/28/21) Other fracture of right lower leg, initial encounter for closed fracture (12/28/21) Dislocation of right ankle joint, initial encounter (12/28/21) Body mass index [BMI] 50.0-59.9, adult (12/28/21) Surgery Performed Operation Date: 01/13/22 07:45 Actual Procedures p hindfoot arthrodesis nail ankle(Right) - Marlin Martinez MD Occupational Therapy Treatment Note M2 OT-IP Current Condition Start: 12/25/21 15:17 Freq: Status: Active Protocol: Document 01/17/22 10:00 [facility] (Rec: 01/17/22 14:35 [facility] [id number]) Occupational Therapy Current Condition Current Condition Evaluation Date 01/17/22 Treatment Diagnosis Right Trimalleolar ankle and s /p IM nina Diagnosis Onset Date 12/28/21 Weight Bearing Status Weight Bearing Status Weight Bear as Tolerated M3 OT- IP Subjective and Pain Start: 12/25/21 15:17 Freq: Status: Active Protocol: Document 01/18/22 11:26 [facility] (Rec: 01/18/22 12:48 [facility] [id number]) OT- Subjective Occupational Therapy Visit Type Type Treatment Note Visit Start Time 11:26 Visit Stop Time 11:50 Total Visit Minutes 24 Occupational Therapy Visit Comments Patient Comments Pt agreeable to get up. Patient/Caregiver Goals TO be able to go home eventually. OT Pain Assessment Pain When Pain Assessed During Mobility Pain Present Pain Present Pain Reported Location Right Ankle Pain Behaviors Facial Grimacing General Evaluation Bathing Ability Moderate Assistance Comments OT Bathing Comments Pt able to wash his chest, groin, and assist to raise his left arm up so therapist able to assist to wash his left armpit. Pt states to have the nursing aid assist with other hygiene needs later. M5 OT- IP IADL's Start: 12/25/21 15:17 Freq: Status: Active Protocol: Document 01/17/22 10:00 [facility] (Rec: 01/17/22 14:35 [facility] [id number]) OT-Instrumental Activities of Daily Living Home Safety Awareness Awareness of Need for Assistance at Home Good Awareness Meal Preparation Meal Preparation Caregiver Provides Assist Business System Consultant Business System Consultant Caregiver Provides Assist M6 OT- IP Functional Cognition Start: 12/25/21 15:17 Freq: Status: Active Protocol: Document 01/18/22 11:26 [facility] (Rec: 01/18/22 12:48 [facility] [id number]) Cognitive Factors Limiting Selfcare Function Cognitive Ability Level of Alertness Alert Patient Orientation Name,Age,Place,Situation Attention Span Ability Capable of Focused Attention, Capable of Sustained Attention Ability to Follow Commands Able to Follow One Step Commands Memory Description Short Term Impaired Problem Solving Ability Needs Assist to Identify Solutions Cognitive Comments Cognitive Assessment Comments Pt has decreased short term memory and needing repeated cues at times and step by step directions of what to do and expect. Pt at times get a little impatient but then after explanation and concrete cues able to follow. M7 OT- IP Mobility and Balance Start: 12/25/21 15:17 Freq: Status: Active Protocol: Document 01/18/22 11:26 [facility] (Rec: 01/18/22 12:48 [facility] [id number]) OT- Bed Mobility Assessment Supine to Sit Supine to Sit Assist Maximum Assistance,1 Person Assistance,Head of Bed Elevated,Bedrails Scooting Scooting to Edge of Bed Maximum Assistance,1 Person Assistance OT-Transfer Assessment Sit to and From Stand Sit to and from Stand Maximum Assistance,2 Person Assistance Technique Transfer Destination Bed,Chair Comments Mobility Comments Pt able to get to the edge of the MAX A x1 today with HOB up . MAX A x1 with heavy use of green pad to help scoot him to the edge of the bed. MAX/ Total Ax2 to stand and able to get upright and needing to brace on therapist's arm to stand for 5 seconds. 2nd attempt able to stand with MAX Ax3 for a few seconds. OT- Balance Assessment Sitting Balance and Reactions Static Sitting Balance Ability Good Standing Balance and Reactions Static Standing Balance Ability Poor M8 OT- IP Objective Assessments Start: 12/25/21 15:17 Freq: Status: Active Protocol: Document 01/17/22 10:00 [facility] (Rec: 01/17/22 14:35 [facility] [id number]) OT Gross Range of Motion Upper Extremity Range of Motion Assessment Left Impaired OT Strength Comments Strength Comments Pt had contratures with right hand , flexed at wrist,elbow, and internally rotated at his right shoulder. Pt has no functional movement in his left UE. OT-Muscle Tone Assessment Muscle Tone WNL No Comments Muscle Tone Comments Hypertonicity in LUE M9 OT- IP Assessment and Plan Start: 12/25/21 15:17 Freq: Status: Active Protocol: Document 01/18/22 11:26 [facility] (Rec: 01/18/22 12:48 [facility] [id number]) OT Summary Assessment and Plan Potential Rehabilitation Potential Fair Analytic Complexity at Evaluation High Summary OT Impairments Strength,Balance,Tone, Functional Mobility,Self- Feeding,Grooming,Dressing, Toileting,Bathing,Toilet Transfers,Shower Transfers, Activity Tolerance Progress Towards Goals Progressing Toward Goals Assessment Summary Pt with assist of the bed to be tilted 4 degrees and bed raised able to stand upright on his legs with MAX/Total Ax2 and assist to brace his legs and pt having to use therapist's arm to brace himself to stand . Pt too tired and not wanting to get to the recliner at this time. Pt when asked to remove the coban on his right foot, states that it does not hamper him with moving at this time. Pt will benefit from skilled rehab. Goals Grooming Goal Standby Assistance Dressing Goal Minimal Assistance Toileting Goal Moderate Assistance Bathing Goal Moderate Assistance Toilet Transfer Goal Minimal Assistance Shower Transfer Goal Moderate Assistance Days to Meet Goals 45 Frequency of Treatment Frequency Of Treatment Once a Day Treatment Plan OT Treatment Plan ADL Training,Functional Cognition Training,Functional Mobility,Patient/Family Education,Discharge Planning Other Treatment Recommendations and Next Pt to be able to stand with Treatment Focus MAX A x3 for 30 seconds with SBQC to help improve standing balance in prep for LB dressing needs. Discharge Recommendations OT Discharge Recommendations SNF Rehab,[facility] Transportation Needs at Discharge Wheelchair/Cabulance
--- NOTE | 2022-01-18 11:50 | PT.IPTN ---
Current Diagnoses Morbid (severe) obesity due to excess calories (12/28/21) Lymphedema, not elsewhere classified (12/28/21) Other fracture of right lower leg, initial encounter for closed fracture (12/28/21) Dislocation of right ankle joint, initial encounter (12/28/21) Body mass index [BMI] 50.0-59.9, adult (12/28/21) Surgery Performed Operation Date: 01/13/22 07:45 Actual Procedures p hindfoot arthrodesis nail ankle(Right) - Marlin Martinez MD Physical Therapy Treatment Note M2 PT-IP Current Condition Start: 12/25/21 17:05 Freq: NEEDED Status: Active Protocol: Document 01/13/22 16:54 AW (Rec: 01/13/22 17:37 AW [id number]) Physical Therapy Current Condition Current Condition Evaluation Date 01/13/22 Treatment Diagnosis R trimalleolar ankle fx s/p IM nina; L hemiparesis; impaired mobility Onset Date 01/05/22 M3 PT-IP Subjective Start: 12/25/21 17:05 Freq: NEEDED Status: Active Protocol: Document 01/18/22 11:26 KS (Rec: 01/18/22 13:15 KS [id number]) Subjective Physical Therapy Visit Type Type Treatment Note Visit Start Time 11:26 Visit Stop Time 11:50 Total Visit Minutes 24 Notes WBAT RLE. Co-treat w/ OT due to pts need for high level assist. Physical Therapy Visit Comments Patient Comments Pt agreeable to working w/ therapy. M4 PT-IP Mobility and Gait Start: 12/25/21 17:05 Freq: NEEDED Status: Active Protocol: Document 01/18/22 11:26 KS (Rec: 01/18/22 13:15 KS [id number]) PT-Bed Mobility Assessment Supine to Sit Supine to Sit Maximum Assistance,1 Person Assistance,Head of Bed Elevated,Bedrails Sit to Supine Sit to Supine Maximum Assistance,2 Person Assistance Scooting Scooting to Edge of Bed Maximum Assistance PT-Transfer Assessment Sit to and From Stand Sit to and from Stand Maximum Assistance,2 Person Assistance,Use of Upper Extremities Equipment Transfer Assistive Device Gait Belt,Small Based Quad Cane Orthotic/Prosthetic Devices or Brace: No Transfers Transfer Destination Bed Transfer Technique sit<>stand Transfer Ability Level of Assist Total Assistance Comments Mobility Comments Pt in bed upon arrival and not agreeable to get in chair today but agreeable to practice sit<>stands. Pt requiring Max A x1 for sup<> sit and scooting EOB today. Tileted bed 4 degress and raised slighlty to assist pt in standing. Pt completed 3 sit<>stands requiring Max A x2 on first two and Max A x3 on 3rd. He was only able to maintain standing less than 5 seconds w/ each stand and required seated rest breaks between them. Pt refused furhter therapy and requested to get back into bed. Max A x2 for sit<>sup and scooting up in bed w/ trendelenberg. Pt left in bed w/ all needs in reach. Gait Assessment Comments Gait Comments Unable at this time. Stair Climbing Assessment Comments Stair Climbing Comments No stairs in home environment. PT-Balance Assessment Sitting Balance and Reactions Static Sitting Balance Ability Good Dynamic Sitting Balance Ability Fair Standing Balance and Reactions Static Standing Balance Ability Poor Dynamic Standing Balance Ability Poor Device Used QC M5 PT-IP Objective Assessments Start: 12/25/21 17:05 Freq: NEEDED Status: Active Protocol: Document 01/13/22 16:54 AW (Rec: 01/13/22 17:37 AW [id number]) Orientation Orientation/Cognition Level of Alertness Alert Orientation Name,Date,Day of Week,Place, Situation Language Function Ability No Deficits Noted Safety Awareness Decreased Safety Awareness Gross Range of Motion Upper Extremity ROM Impairments Pt unable to move his LUE and has tone and contractures. Lower Extremity ROM Assessment Bilaterally Impaired Impairments limited due to BLE lymphedema Strength Lower Extremity Strength Assessment Bilaterally Impaired Comments Strength Comments LLE: knee flexion: 2-/5 but 0/ 5 otherwise RLE: 3-/5 except ankle 2-/5 Sensation Assessment Sensation Gross Sensation Left UE Impaired,Left LE Impaired Light Touch Absent Proprioception (Position) Impaired Muscle Tone Muscle Tone WNL No Other Assessments Other Other Assessments Pt has chronic BLE lymphedema and elephantiasis. Bilateral distal feet with significant skin changes and papillomas obscuring toes. M6 PT-IP Treatment Start: 12/25/21 17:05 Freq: NEEDED Status: Active Protocol: Document 01/18/22 11:26 KS (Rec: 01/18/22 13:15 KS [id number]) Physical Therapy Treatment Education Education Provided Weight Bearing Status,Safety M7 PT-IP Assessment and Plan Start: 12/25/21 17:05 Freq: NEEDED Status: Active Protocol: Document 01/18/22 11:26 KS (Rec: 01/18/22 13:15 KS [id number]) PT Summary Assessment and Plan Potential Rehabilitation Potential Fair Status of Condition at Evaluation Evolving Summary Impairments Pain,ROM,Strength,Balance, Sensation,Tone,Bed Mobility, Transfers,Gait Assessment Summary Pt required less assist for bed mobility today, but still Max A x1. Max A x2-3 for sit<> stand and only able to maintain less than 5 seconds. Pt limited by weakness and low activity tolerance and will require SNF to improve functional mobility independence. Goals Bed Mobility Goal Minimal Assistance Transfer Goal Minimal Assistance,Cane Other Goals - pt will transfer with min assist using slide board Days to Meet Goals 20 Frequency of Treatment Frequency Of Treatment Once a Day Treatment Plan Physical Therapy Treatment Plan Bed Mobility Training,Transfer Training,Gait Training, Therapeutic Exercise,Balance Retraining,Post Op Education, Discharge Planning,Hot or Cold Pack,Neuromuscular Re-ed Other Recommendations and Next Treatment bed mobility, sit to stand ( Focus use bed tilt feature as needed ); consider slide board transfer (if slide board can accommodate pt's weight); transfer with QC if able Precautions Other Precautions falls Weight Bearing Status Weight Bearing Status Weight Bear as Tolerated Allowed Weight Bearing Amount (enter % WBAT RLE or #) (%) Recommendations To Nursing Amount of Assist Needed Mechanical Lift Discharge Recommendations PT Discharge Recommendations Home with 20/04 Assist Available,Home Health,SNF Rehab,Home vs SNF Transportation Needs at Discharge Wheelchair/Cabulance
--- NOTE | 2022-01-18 13:50 | PC.NURSE ---
Pre medicated patient with oxycodone before PT. patient thought he had been getting 2 tabs of 10mg oxycodone. patient claimed that he has received 20mg(2 tabs of 10mg oxy) last night and this morning and it worked for him; however, the order is 10mg oxy and there were no 20mg oxy given or ordered. patient was upset. I told the patient that the 10mg must be working sine his pain has gone down to 3/10.
--- NOTE | 2022-01-18 15:26 | P.PN_ITS ---
Subjective Subjective Date Patient Seen: 01/18/22 Time Patient Seen: 15:27 Interval history: Patient is status post repair of a trimalleolar fracture.? He is still unable to bear weight. He states he feels his incision today, but beyond this no complaints. denies pain, fever, chills itching. Exam Vital Signs (past 8 hours): - 01/18/22 07:47 Pulse Oximetry 94 Oxygen Delivery Method Room Air Oxygen Flow Rate 0 Narrative Exam Narrative: Pleasant gentleman sitting in a chair in no obvious distress Resp Other: Lungs clear to auscultation Cardio Other: Cardiac exam: Regular rate rhythm normal S1-S2 GI Other: Abdomen soft and nontender Extrem Other: Extremities bilateral lymphedema with Gurpreet bandages in place Objective Labs Result Diagrams: 01/14/22 07:30 01/13/22 05:07 [facility] Medical History Asthma Chronic acquired lymphedema HTN (hypertension) Hyperlipidemia Morbid obesity with body mass index (BMI) of 40.0 to 49.9 Obstructive sleep apnea (04/03/20) Family History Family/Other Obesity Hypertension Diabetes mellitus Heart disease Dementia Social History household members: none Smoking Status: Never smoker additional social history: Had lived independently but failure to thrive and care deficits. Smoking 18 g of marijuana daily Assessment & Plan Assessment & Plan narrative: Right ankle fracture, * Patient has suffered a distal fibular fracture, and medial malleolar fracture which has been reduced and splinted * Given his significant morbid obesity he will be unable to transfer given the fracture right ankle, ?he has remained inpatient due to difficult placement * ?patient is status post repair of a trimalleolar fracture, no longer with uncontrolled pain * continue Percocet, increase Percocet 10 mg prior to physical therapy * Continue physical therapy occupational therapy * unable to be discharged home looking at different placement option. Type 2 diabetes * Insulin sliding scale inpatient * Home glimeperide 4 mg daily on-board 3. Morbid obesity, class 3 * This clearly had a significant impact on his morbidity, as his obesity likely is the cause of the right ankle fracture which is resulting in his inability to move and pivot at this point * His obesity is his rate limiting factor for discharge either home or to retirement 4. Hypertension * Continue home carvedilol 25 mg bid, patient reports he no longer takes lisinopril, and is unsure why * If not allergic to lisinopril would start low-dose lisinopril given his type 2 diabetes 5. Obstructive sleep apnea * Patient denies use of CPAP at home' 6. Sacral decubitus ulcer, stage III/IV * Given his significant obesity, and inability to move this is problematic as he is at high risk for further skin breakdown 7. Elephantiasis, secondary to chronic lymphedema * Chronic, continue his usual wound dressing 8. Intertrigo, likely Lanie, affecting many folds * Will start topical clotrimazole/betamethasone * Will start PO Diflucan 150 mg once weekly for 4 weeks (started December 25, 2021 9.?Asthma, likely made worse by copious marijuana use * Continue the albuterol inhaler, as needed, encouraged him to take breathing treatments as offered by respiratory therap 10. Insomnia * Continue home trazodone 50 mg daily * Nightly Benadryl 50 mg, as needed, along with Benadryl 50 mg at midnight 11. Hypothyroidism, patient reports he is not on levothyroxine. TSH came back 4.7, discontinue L-thyroxine, will need repeat TSH ultimately Time Spent With Patient Critical Care time: I spent a total of [] minutes of critical care time on this patient's care today; this time is exclusive of procedural time.
[2022-01-18] MEDS: TRIAMCINOLONE 0.025% CREAM 1 APPLIC TOP (15:52)
[2022-01-18] MEDS: NYSTATIN CREAM 30 GM 1 APPLIC TOP (15:53)
[2022-01-18 20:00] VITALS: O2SAT 95
[2022-01-18] MEDS: ATORVASTATIN 20 MG TABLET PO (20:02)
[2022-01-18] MEDS: TRAZODONE 50 MG TABLET PO (20:02)
[2022-01-18 20:04] VITALS: BP 135/61; PULSE 78
[2022-01-18 20:09] VITALS: BP 135/61; PULSE 78; RESP 16; TEMP 36.8; O2SAT 95
[2022-01-18] MEDS: diphenhydrAMINE 25 MG TABLET 50 MG PO (21:56)
[2022-01-19] MEDS: ACETAMINOPHEN 325 MG TABLET 650 MG PO ×4 (00:24→18:48)
[2022-01-19] MEDS: OXYCODONE IR 5 MG TABLET 10 MG PO ×3 (05:06→18:52)
[2022-01-19] MEDS: LEVOTHYROXINE 25 MCG TABLET PO (06:05)
[2022-01-19 07:00] VITALS: BP 129/61; PULSE 70; RESP 18; TEMP 35.7; O2SAT 95
[2022-01-19] MEDS: INSULIN LISPRO 100 UNIT/ML 3ML VIAL SUBCUT ×3 (08:00→18:49)
--- NOTE | 2022-01-19 08:09 | CM.DPC ---
Addendum entered by Vanna Pugh R.N. 01/19/22 15:34: Met with patient in his room, and brought in REYNALDO Donahue. Patient had gotten his sister, Irma, on speaker phone, she lives in [place]. Updated him and sister on the attempts that care management has been making to secure a facility. Reminded patient and sister that Jennifer Bolton, is his new manager of case management through [facility]. Patient indicated, he knew she was his new assigned anjel hr manager, but has not had a chance to speak with her. Discussed facilities, and let him and sister know that transitional care facility in [place] is reviewing. Should they not accept patient, another facility will need to be looked at. [facility] is the one that is working with [facility]. Jennifer would assist in locating another facility should this facility not accept. Discussed home versus group homes. Let patient and sister know that plan B may need to be pursued, which would be him going home. Patient stated, if this is the case, the state would have to pay for 24 hour caregivers, and they may not do that, and would need more than one caregiver, 3 at a time. Rowan, LOAD DISPATCHER, stated that it's not realistic to have that many caregivers at once. Encouraged patient that he needs to continue to get up a couple times a day, and work with P.T, for home will have to be the plan, if no facility is secured. All of the local rehabs have refused patient secondary to not having either the staff, Medicaid beds, or equipment for patient. Will follow up with [facility] tomorrow, and the next plan. Addendum entered by Vanna Pugh R.N. 01/19/22 14:55: Spoke to Dr. Baez, orthopedist who had just seen patient. He is writing orders for nursing to get patient up twice a day, and that P.T. needs to continue to work with him. Patient needs encouragement to get up. This manager of case management went ahead and called PATRICA Red manager of case management. She was working today. Asked her about having patient return home, should transitional care center not be able to be secured. She stated, this would first have to go through Jennifer Grovse, for she is patient's home and community service officer coordinator, and that patient most likely would need to be reassessed. Called Jennifer and left her a message to see if this can be started. Neda indicated, the challenge of this is that there are not many caregivers that are able to do his lymphadema wraps. One alternative may be patient going to the wound care center, which can be discussed. Left a message with Christy horton as well, for she is the individual working on getting patient to transitional care center in [place]. Original Note: DCP Cont: According to P.T, patient is continuing to be max assist at this time. Had emailed Christy Horton, she is out of the office until tomorrow. Will need to follow up with her on Thursday to see what the status is of patient getting accepted to [facility] in [place]. If patient is not accepted, then his manager of case management, Jennifer, will need to find an alternate facility for patient. P: DCP to continue to follow up with status of Transitional Care facility with [facility]. Vanna Pugh RN/[employer]
[2022-01-19 08:28] VITALS: PULSE 76; RESP 14; O2SAT 94
[2022-01-19] MEDS: PSYLLIUM HUSK 1 PACKET PO (08:52)
[2022-01-19] MEDS: ENOXAPARIN 40 MG/0.4 ML SYRINGE SUBCUT (08:52)
[2022-01-19 08:54] VITALS: BP 129/61; PULSE 76
[2022-01-19] MEDS: carvediloL 12.5 MG TABLET 25 MG PO ×2 (08:54→20:47)
[2022-01-19 08:55] VITALS: BP 129/61; PULSE 76
[2022-01-19] MEDS: GLIMEPIRIDE 2 MG TABLET 4 MG PO (08:55)
[2022-01-19] MEDS: lisinopriL 5 MG TABLET PO (08:55)
[2022-01-19] MEDS: PANTOPRAZOLE DR 20 MG TABLET PO (08:56)
[2022-01-19] MEDS: SODIUM CHLORIDE 0.9% FLUSH 10 ML IV ×2 (08:58→20:37)
--- NOTE | 2022-01-19 10:03 | PT.IPTN ---
Current Diagnoses Morbid (severe) obesity due to excess calories (12/28/21) Lymphedema, not elsewhere classified (12/28/21) Other fracture of right lower leg, initial encounter for closed fracture (12/28/21) Dislocation of right ankle joint, initial encounter (12/28/21) Body mass index [BMI] 50.0-59.9, adult (12/28/21) Surgery Performed Operation Date: 01/13/22 07:45 Actual Procedures p hindfoot arthrodesis nail ankle(Right) - Marlin Martinez MD Physical Therapy Treatment Note M2 PT-IP Current Condition Start: 12/25/21 17:05 Freq: NEEDED Status: Active Protocol: Document 01/13/22 16:54 AW (Rec: 01/13/22 17:37 AW [id number]) Physical Therapy Current Condition Current Condition Evaluation Date 01/13/22 Treatment Diagnosis R trimalleolar ankle fx s/p IM nina; L hemiparesis; impaired mobility Onset Date 01/05/22 M3 PT-IP Subjective Start: 12/25/21 17:05 Freq: NEEDED Status: Active Protocol: Document 01/19/22 10:03 AW (Rec: 01/19/22 10:35 AW [id number]) Subjective Physical Therapy Visit Type Type Treatment Note Visit Start Time 09:40 Visit Stop Time 10:03 Total Visit Minutes 23 Notes WBAT RLE. SEMIAUTOMATIC TAPER OPERATOR provided mobility assist this date. Physical Therapy Visit Comments Patient Comments Pt agreeable to working w/ therapy. M4 PT-IP Mobility and Gait Start: 12/25/21 17:05 Freq: NEEDED Status: Active Protocol: Document 01/19/22 10:03 AW (Rec: 01/19/22 10:35 AW [id number]) PT-Bed Mobility Assessment Supine to Sit Supine to Sit Maximum Assistance,1 Person Assistance,Head of Bed Elevated,Bedrails Sit to Supine Sit to Supine Maximum Assistance,2 Person Assistance Scooting Scooting to Edge of Bed Maximum Assistance,Dependent PT-Transfer Assessment Sit to and From Stand Sit to and from Stand Maximum Assistance,2 Person Assistance,Use of Upper Extremities Equipment Transfer Assistive Device Gait Belt,Small Based Quad Cane Orthotic/Prosthetic Devices or Brace: No Transfers Transfer Destination Bed Transfer Technique sit<>stand Transfer Ability Level of Assist Total Assistance Comments Mobility Comments Pt was lying in bed as PT arrived. Denied interest in getting up to chair. I'll do PT but then I want to get some sleep. Max A x 1 for supine to sit with use of trapeze with RUE. Pt was able to shift RLE toward left EOB. PT managed LLE entirely. Pt sat up and was dependent for scooting to EOB for feet on ground. Pt needed min/mod assist for seated balance until feet on ground. SEMIAUTOMATIC TAPER OPERATOR arrived to assist with sit to stand. Max A x 2 to stand as PT and SEMIAUTOMATIC TAPER OPERATOR blocked feet and knees. Pt able to stand 5 sec and 8 sec. Pt reported high level of fatigue after standing and requested michael return to supine. PT assisted SEMIAUTOMATIC TAPER OPERATOR with transfer back to bed and for repositioning. Gait Assessment Comments Gait Comments Unable at this time. Stair Climbing Assessment Comments Stair Climbing Comments No stairs in home environment. PT-Balance Assessment Sitting Balance and Reactions Static Sitting Balance Ability Good Dynamic Sitting Balance Ability Fair Standing Balance and Reactions Static Standing Balance Ability Poor Dynamic Standing Balance Ability Poor Device Used QC M5 PT-IP Objective Assessments Start: 12/25/21 17:05 Freq: NEEDED Status: Active Protocol: Document 01/13/22 16:54 AW (Rec: 01/13/22 17:37 AW [id number]) Orientation Orientation/Cognition Level of Alertness Alert Orientation Name,Date,Day of Week,Place, Situation Language Function Ability No Deficits Noted Safety Awareness Decreased Safety Awareness Gross Range of Motion Upper Extremity ROM Impairments Pt unable to move his LUE and has tone and contractures. Lower Extremity ROM Assessment Bilaterally Impaired Impairments limited due to BLE lymphedema Strength Lower Extremity Strength Assessment Bilaterally Impaired Comments Strength Comments LLE: knee flexion: 2-/5 but 0/ 5 otherwise RLE: 3-/5 except ankle 2-/5 Sensation Assessment Sensation Gross Sensation Left UE Impaired,Left LE Impaired Light Touch Absent Proprioception (Position) Impaired Muscle Tone Muscle Tone WNL No Other Assessments Other Other Assessments Pt has chronic BLE lymphedema and elephantiasis. Bilateral distal feet with significant skin changes and papillomas obscuring toes. M6 PT-IP Treatment Start: 12/25/21 17:05 Freq: NEEDED Status: Active Protocol: Document 01/19/22 10:03 AW (Rec: 01/19/22 10:35 AW [id number]) Physical Therapy Treatment Education Education Provided Weight Bearing Status,Safety M7 PT-IP Assessment and Plan Start: 12/25/21 17:05 Freq: NEEDED Status: Active Protocol: Document 01/19/22 10:03 AW (Rec: 01/19/22 10:35 AW [id number]) PT Summary Assessment and Plan Potential Rehabilitation Potential Fair Status of Condition at Evaluation Evolving Summary Impairments Pain,ROM,Strength,Balance, Sensation,Tone,Bed Mobility, Transfers,Gait Progress Towards Goals Slow Progress due to Pain,Slow Progress due to Medical Issues Assessment Summary Pt stood 5 seconds and 8 seconds with 2 person max assist. PT and SEMIAUTOMATIC TAPER OPERATOR blocked feet and knees during standing . Pt limited by weakness and low activity tolerance and will require SNF to improve functional mobility independence. Goals Bed Mobility Goal Minimal Assistance Transfer Goal Minimal Assistance,Cane Days to Meet Goals 20 Frequency of Treatment Frequency Of Treatment Once a Day Treatment Plan Physical Therapy Treatment Plan Bed Mobility Training,Transfer Training,Gait Training, Therapeutic Exercise,Balance Retraining,Post Op Education, Discharge Planning,Hot or Cold Pack,Neuromuscular Re-ed Other Recommendations and Next Treatment scoot pt as high in bed as Focus possible before sup>sit to allow use of bed cane with R hand; bed mobility, sit to stand (use bed tilt feature as needed); transfer with if able Precautions Other Precautions falls Weight Bearing Status Weight Bearing Status Weight Bear as Tolerated Allowed Weight Bearing Amount (enter % WBAT RLE or #) (%) Recommendations To Nursing Amount of Assist Needed Mechanical Lift Discharge Recommendations PT Discharge Recommendations Home with 20/04 Assist Available,Home Health,SNF Rehab,Home vs SNF Transportation Needs at Discharge Wheelchair/Cabulance
--- NOTE | 2022-01-19 11:34 | PM.PN.1 ---
Exam Vital Signs (past 8 hours): - 01/19/22 07:00 01/19/22 08:28 01/19/22 08:54 Temperature 96.3 F L Pulse Rate 70 76 76 Respiratory Rate 18 14 Blood Pressure 129/61 129/61 Pulse Oximetry 95 94 01/19/22 08:55 Temperature Pulse Rate 76 Respiratory Rate Blood Pressure 129/61 Pulse Oximetry Oxygen Delivery Method Room Air Oxygen Flow Rate 0 Objective Labs Result Diagrams: 01/14/22 07:30 01/13/22 05:07 [facility] Medical History Asthma Chronic acquired lymphedema HTN (hypertension) Hyperlipidemia Morbid obesity with body mass index (BMI) of 40.0 to 49.9 Obstructive sleep apnea (04/03/20) Family History Family/Other Obesity Hypertension Diabetes mellitus Heart disease Dementia Social History household members: none Smoking Status: Never smoker additional social history: Had lived independently but failure to thrive and care deficits. Smoking 18 g of marijuana daily Assessment & Plan Assessment & Plan narrative: Patient is admitted for multiple medical issues, inability to self care and ambulate/transfer. Patient is s/p right ankle IMN for unstable fx/dislocation. Patient will require additional physical therapy training for pivoting and transfer in order for improved self care. Will start twice/shift out of bed to chair. Will discontinue IV pain medication since patient needs to transition towards outpatient medical therapy. Continue medical and nursing care including physical therapy. Time Spent With Patient Critical Care time: I spent a total of [] minutes of critical care time on this patient's care today; this time is exclusive of procedural time.
--- NOTE | 2022-01-19 15:38 | PM.PN.1 ---
Subjective Subjective Date Patient Seen: 01/19/22 Interval history: Patient is status post repair of a trimalleolar fracture.?Having a difficult time mobilizing. No new complaints Exam Vital Signs (past 8 hours): - 01/19/22 08:28 01/19/22 08:54 01/19/22 08:55 Pulse Rate 76 76 76 Respiratory Rate 14 Blood Pressure 129/61 129/61 Pulse Oximetry 94 Oxygen Delivery Method Room Air Oxygen Flow Rate 0 Narrative Exam Narrative: Pleasant gentleman sitting in a chair in no obvious distress Resp Other: Lungs clear to auscultation Cardio Other: Cardiac exam: Regular rate rhythm normal S1-S2 GI Other: Abdomen soft and nontender Extrem Other: Extremities bilateral lymphedema with Gurpreet bandages in place Objective Labs Result Diagrams: 01/14/22 07:30 01/13/22 05:07 [facility] Medical History Asthma Chronic acquired lymphedema HTN (hypertension) Hyperlipidemia Morbid obesity with body mass index (BMI) of 40.0 to 49.9 Obstructive sleep apnea (04/03/20) Family History Family/Other Obesity Hypertension Diabetes mellitus Heart disease Dementia Social History household members: none Smoking Status: Never smoker additional social history: Had lived independently but failure to thrive and care deficits. Smoking 18 g of marijuana daily Assessment & Plan Assessment & Plan narrative: 1. Right ankle fracture, Patient has suffered a distal fibular fracture, and medial malleolar fracture which has been reduced and splinted Given his significant morbid obesity he will be unable to transfer given the fracture right ankle, ?he has remained inpatient due to difficult placement patient is status post repair of a trimalleolar fracture, no longer with uncontrolled pain continue Percocet, increase Percocet 10 mg prior to physical therapy. Discontinue IV medications. Continue physical therapy occupational therapy unable to be discharged home looking at different placement options though placement has been difficult. May have to discharge home if all options exhausted 2. Type 2 diabetes Insulin sliding scale inpatient Home glimeperide 4 mg daily on-board 3. Morbid obesity, class 3 This clearly had a significant impact on his morbidity, as his obesity likely is the cause of the right ankle fracture which is resulting in his inability to move and pivot at this point His obesity is his rate limiting factor for discharge either home or to fdc 4. Hypertension Continue home carvedilol 25 mg bid lisinopril 5 mg daily was also started with improvement in BPs. 5. Obstructive sleep apnea Patient denies use of CPAP at home' 6. Sacral decubitus ulcer, stage III/IV Given his significant obesity, and inability to move this is problematic as he is at high risk for further skin breakdown 7. Elephantiasis, secondary to chronic lymphedema Chronic, continue his usual wound dressing 8. Intertrigo, likely Lanie, affecting many folds continue topical clotrimazole/betamethasone continue PO Diflucan 150 mg once weekly for 4 weeks (started December 25, 2021) 9.?Asthma, likely made worse by copious marijuana use Continue the albuterol inhaler, as needed, encouraged him to take breathing treatments as offered by respiratory therapy 10. Insomnia Continue home trazodone 50 mg daily Nightly Benadryl 50 mg, as needed, along with Benadryl 50 mg at midnight Time Spent With Patient Critical Care time: I spent a total of [] minutes of critical care time on this patient's care today; this time is exclusive of procedural time.
[2022-01-19] MEDS: polyethylene glycoL 3350 17 GM POWD.PACK PO (16:04)
[2022-01-19 20:00] VITALS: BP 135/86; PULSE 86; RESP 18; TEMP 36.6; O2SAT 95
[2022-01-19 20:47] VITALS: BP 135/86; PULSE 86
[2022-01-19] MEDS: TRAZODONE 50 MG TABLET PO (20:47)
[2022-01-19] MEDS: ATORVASTATIN 20 MG TABLET PO (20:47)
[2022-01-19] MEDS: diphenhydrAMINE 25 MG TABLET 50 MG PO (20:47)
[2022-01-19] MEDS: BISACODYL 10 MG SUPP PR (20:52)
--- NOTE | 2022-01-19 20:57 | PC.NURSE ---
Patient declining several aspects of care including certain medications, turning and repositioning, and bed osman removal. Patient states they are concerned about having a bowel movement (PRN suppository administered) and wants to stay on the bed osman for an extended amount of time. Education given on potential consequences of sitting on a bed osman for long periods of time. Will monitor closely.
[2022-01-20] MEDS: diphenhydrAMINE 25 MG TABLET 50 MG PO ×2 (00:14→20:37)
[2022-01-20] MEDS: OXYCODONE IR 5 MG TABLET 10 MG PO ×4 (00:16→20:47)
[2022-01-20 08:00] VITALS: BP 135/77; PULSE 82; RESP 16; TEMP 36.3; O2SAT 95
[2022-01-20] MEDS: GLIMEPIRIDE 2 MG TABLET 4 MG PO (09:43)
[2022-01-20] MEDS: PANTOPRAZOLE DR 20 MG TABLET PO (09:44)
[2022-01-20] MEDS: lisinopriL 5 MG TABLET PO (09:44)
[2022-01-20] MEDS: INSULIN LISPRO 100 UNIT/ML 3ML VIAL SUBCUT ×4 (09:51→20:43)
[2022-01-20] MEDS: ENOXAPARIN 40 MG/0.4 ML SYRINGE SUBCUT ×2 (09:53→20:37)
[2022-01-20] MEDS: carvediloL 12.5 MG TABLET 25 MG PO ×2 (09:53→20:36)
[2022-01-20] MEDS: SODIUM CHLORIDE 0.9% FLUSH 10 ML IV ×2 (10:09→20:37)
[2022-01-20] MEDS: HYDROCORTISONE 1% OINT 28 GM 1 APPLIC TOP (10:10)
--- NOTE | 2022-01-20 11:05 | PT.IPTN ---
Current Diagnoses Morbid (severe) obesity due to excess calories (12/28/21) Lymphedema, not elsewhere classified (12/28/21) Other fracture of right lower leg, initial encounter for closed fracture (12/28/21) Dislocation of right ankle joint, initial encounter (12/28/21) Body mass index [BMI] 50.0-59.9, adult (12/28/21) Surgery Performed Operation Date: 01/13/22 07:45 Actual Procedures p hindfoot arthrodesis nail ankle(Right) - Marlin Martinez MD Physical Therapy Treatment Note M2 PT-IP Current Condition Start: 12/25/21 17:05 Freq: NEEDED Status: Active Protocol: Document 01/13/22 16:54 AW (Rec: 01/13/22 17:37 AW [id number]) Physical Therapy Current Condition Current Condition Evaluation Date 01/13/22 Treatment Diagnosis R trimalleolar ankle fx s/p IM nnia; L hemiparesis; impaired mobility Onset Date 01/05/22 M3 PT-IP Subjective Start: 12/25/21 17:05 Freq: NEEDED Status: Active Protocol: Document 01/20/22 11:05 AW (Rec: 01/20/22 12:52 AW [id number]) Subjective Physical Therapy Visit Type Type Treatment Note Visit Start Time 10:34 Visit Stop Time 11:05 Total Visit Minutes 31 Notes WBAT RLE. Co-tx with OT Number of CONNIE SCRATCHER Visits 0 Physical Therapy Visit Comments Patient Comments Pt is willing to participate with therapy. Therapy Pain Assessment Pain When Pain Assessed During Mobility Pain Present Pain Present Pain Reported Location Right Ankle Intensity 5 Scale Used Numeric (0 - 10) Pain Management Techniques Distraction,Modification of Treatment M4 PT-IP Mobility and Gait Start: 12/25/21 17:05 Freq: NEEDED Status: Active Protocol: Document 01/20/22 11:05 AW (Rec: 01/20/22 12:52 AW [id number]) PT-Bed Mobility Assessment Supine to Sit Supine to Sit Maximum Assistance,1 Person Assistance,Head of Bed Elevated,Bedrails Scooting Scooting to Edge of Bed Maximum Assistance PT-Transfer Assessment Sit to and From Stand Sit to and from Stand Maximum Assistance,2 Person Assistance,Use of Upper Extremities Equipment Transfer Assistive Device Gait Belt,Small Based Quad Cane Orthotic/Prosthetic Devices or Brace: No Transfers Transfer Destination Chair Transfer Technique Mechanical Lift Transfer Ability Level of Assist Total Assistance Comments Mobility Comments Pt was lying in bed as PT and OT arrived. He expressed interest in getting up to the chair but doubted his ability to transfer. Max A x 1 for supine to sit with HOB elevated and pt using trapeze bar to assist as PT managed LLE. Max A to scoot to EOB as pt used bed cane with R hand to pull forward. Pt used bed cane to stand max A x 2 for three attempts - 10 sec, 15 sec, 15 sec with pt maintaining contact with bed cane and unable to fully extend knees and hips. Pt agreed to another attempt using quad cane and was able to improve standing posture. He stood 10 seconds and then needed to sit. PT and OT used mechanical lift for transfer to bed as pt unable to shift weight in standing. Positioned pt on chair with BLE elevated . Pt was left with call light and tray table in reach of RUE . Gait Assessment Comments Gait Comments Unable to shift weight laterally Stair Climbing Assessment Comments Stair Climbing Comments No stairs in home environment. PT-Balance Assessment Sitting Balance and Reactions Static Sitting Balance Ability Good Dynamic Sitting Balance Ability Fair Standing Balance and Reactions Static Standing Balance Ability Poor Dynamic Standing Balance Ability Poor Device Used QC M5 PT-IP Objective Assessments Start: 12/25/21 17:05 Freq: NEEDED Status: Active Protocol: Document 01/13/22 16:54 AW (Rec: 01/13/22 17:37 AW [id number]) Orientation Orientation/Cognition Level of Alertness Alert Orientation Name,Date,Day of Week,Place, Situation Language Function Ability No Deficits Noted Safety Awareness Decreased Safety Awareness Gross Range of Motion Upper Extremity ROM Impairments Pt unable to move his LUE and has tone and contractures. Lower Extremity ROM Assessment Bilaterally Impaired Impairments limited due to BLE lymphedema Strength Lower Extremity Strength Assessment Bilaterally Impaired Comments Strength Comments LLE: knee flexion: 2-/5 but 0/ 5 otherwise RLE: 3-/5 except ankle 2-/5 Sensation Assessment Sensation Gross Sensation Left UE Impaired,Left LE Impaired Light Touch Absent Proprioception (Position) Impaired Muscle Tone Muscle Tone WNL No Other Assessments Other Other Assessments Pt has chronic BLE lymphedema and elephantiasis. Bilateral distal feet with significant skin changes and papillomas obscuring toes. M6 PT-IP Treatment Start: 12/25/21 17:05 Freq: NEEDED Status: Active Protocol: Document 01/20/22 11:05 AW (Rec: 01/20/22 12:52 AW [id number]) Physical Therapy Treatment Education Education Provided Weight Bearing Status,Safety M7 PT-IP Assessment and Plan Start: 12/25/21 17:05 Freq: NEEDED Status: Active Protocol: Document 01/20/22 11:05 AW (Rec: 01/20/22 12:52 AW [id number]) PT Summary Assessment and Plan Summary Impairments Pain,ROM,Strength,Balance, Sensation,Tone,Bed Mobility, Transfers,Gait Progress Towards Goals Slow Progress due to Pain,Slow Progress due to Medical Issues,Slow Progress due to Activity Tolerance Assessment Summary Pt increased his standing tolerance today, standing 10- 15 seconds four times. He was unable to shift weight for pre -gait assessment in standing and needed michael lift to transfer to chair. Pt limited by weakness and low activity tolerance and will require SNF to improve functional mobility independence. Goals Bed Mobility Goal Minimal Assistance Transfer Goal Minimal Assistance,Cane Days to Meet Goals 20 Frequency of Treatment Frequency Of Treatment Once a Day Treatment Plan Physical Therapy Treatment Plan Bed Mobility Training,Transfer Training,Gait Training, Therapeutic Exercise,Balance Retraining,Post Op Education, Discharge Planning,Hot or Cold Pack,Neuromuscular Re-ed Other Recommendations and Next Treatment scoot pt as high in bed as Focus possible before sup>sit to allow use of bed cane with R hand to scoot toward EOB; bed mobility, sit to stand (use bed tilt feature as needed); pre-gait weight shifting Precautions Other Precautions falls Weight Bearing Status Weight Bearing Status Weight Bear as Tolerated Allowed Weight Bearing Amount (enter % WBAT RLE or #) (%) Recommendations To Nursing Amount of Assist Needed Mechanical Lift Discharge Recommendations PT Discharge Recommendations Home with 20/04 Assist Available,Home Health,SNF Rehab,Home vs SNF Transportation Needs at Discharge Wheelchair/Cabulance
--- NOTE | 2022-01-20 11:06 | OT.IP.TRT ---
Current Diagnoses Morbid (severe) obesity due to excess calories (12/28/21) Lymphedema, not elsewhere classified (12/28/21) Other fracture of right lower leg, initial encounter for closed fracture (12/28/21) Dislocation of right ankle joint, initial encounter (12/28/21) Body mass index [BMI] 50.0-59.9, adult (12/28/21) Surgery Performed Operation Date: 01/13/22 07:45 Actual Procedures p hindfoot arthrodesis nail ankle(Right) - Marlin Martinez MD Occupational Therapy Treatment Note M2 OT-IP Current Condition Start: 12/25/21 15:17 Freq: Status: Active Protocol: Document 01/17/22 10:00 [facility] (Rec: 01/17/22 14:35 [facility] [id number]) Occupational Therapy Current Condition Current Condition Evaluation Date 01/17/22 Treatment Diagnosis Right Trimalleolar ankle and s /p IM nina Diagnosis Onset Date 12/28/21 Weight Bearing Status Weight Bearing Status Weight Bear as Tolerated M3 OT- IP Subjective and Pain Start: 12/25/21 15:17 Freq: Status: Active Protocol: Document 01/20/22 13:35 [facility] (Rec: 01/20/22 13:52 [facility] [id number]) OT- Subjective Occupational Therapy Visit Type Type Progress Note Visit Start Time 10:33 Visit Stop Time 11:06 Total Visit Minutes 33 Notes Co-treat with P.T. OT Pain Assessment Pain When Pain Assessed During Mobility Pain Present Pain Present Denied Pain M4 OT- IP ADL's Start: 12/25/21 15:17 Freq: Status: Active Protocol: Document 01/17/22 10:00 [facility] (Rec: 01/17/22 14:35 [facility] [id number]) OT HWN-Vvaf-Uksrfap General Evaluation Self-Feeding Ability Standby Assistance Areas Needing Assistance Cutting Food,Opening Containers Comments OT Self-Feeding Comments Set-up assist OT ADL-Grooming General Evaluation Grooming Ability Standby Assistance Areas Needing Assistance Retrieving/Set-up of Grooming Items Comments OT Grooming Comments Pt able to complete after set- up. OT ADL-Oral Care General Eval Oral Care Ability Standby Assistance Areas of Assistance Retrieving/Set-Up of Items OT ADL-Dressing General Eval Upper Body Dressing Ability Moderate Assistance Lower Body Dressing Ability Total Assistance Comments OT Dressing Comments Pt needign MODA to help get the gown over his left arm. OT ADL-Toileting General Evaluation Toileting Ability Total Assistance Comments OT Toileting Comments Pt able to use the urinal in bed and needing to use a bed osman for bowel movement. Nursing aid assist and having to use the michael to lift the pt up so able to get the bed osman below him. OT ADL-Bathing General Evaluation Bathing Ability Moderate Assistance Comments OT Bathing Comments Pt able to wash his chest, groin, and assist to raise his left arm up so therapist able to assist to wash his left armpit. Pt states to have the nursing aid assist with other hygiene needs later. M5 OT- IP IADL's Start: 12/25/21 15:17 Freq: Status: Active Protocol: Document 01/17/22 10:00 [facility] (Rec: 01/17/22 14:35 [facility] [id number]) OT-Instrumental Activities of Daily Living Home Safety Awareness Awareness of Need for Assistance at Home Good Awareness Meal Preparation Meal Preparation Caregiver Provides Assist Institute Scientist Institute Scientist Caregiver Provides Assist M6 OT- IP Functional Cognition Start: 12/25/21 15:17 Freq: Status: Active Protocol: Document 01/18/22 11:26 [facility] (Rec: 01/18/22 12:48 [facility] [id number]) Cognitive Factors Limiting Selfcare Function Cognitive Ability Level of Alertness Alert Patient Orientation Name,Age,Place,Situation Attention Span Ability Capable of Focused Attention, Capable of Sustained Attention Ability to Follow Commands Able to Follow One Step Commands Memory Description Short Term Impaired Problem Solving Ability Needs Assist to Identify Solutions Cognitive Comments Cognitive Assessment Comments Pt has decreased short term memory and needing repeated cues at times and step by step directions of what to do and expect. Pt at times get a little impatient but then after explanation and concrete cues able to follow. M7 OT- IP Mobility and Balance Start: 12/25/21 15:17 Freq: Status: Active Protocol: Document 01/20/22 13:35 [facility] (Rec: 01/20/22 13:52 [facility] [id number]) OT- Bed Mobility Assessment Supine to Sit Supine to Sit Assist Maximum Assistance,2 Person Assistance Scooting Scooting to Edge of Bed Maximum Assistance,2 Person Assistance OT-Transfer Assessment Sit to and From Stand Sit to and from Stand Maximum Assistance,2 Person Assistance Transfers Transfer Ability Total Assistance Devices Transfer Assistive Devices Gait Belt,Large Based Quad Cane Comments Mobility Comments Pt stood from bed with max x 2 4 times. Pt was able to stand for: Trial 1: 10 seconds Trial 2: 15 seconds Trial 3: 15 seconds Trial 4: 10 seconds with quad cane Pt was able to stand more upright upon stand with quad cane. Pt then states fatigue and hoyered to chair. Pt left sitting up in chair at end of session. OT- Gait Assessment Comments Gait Ability Comments Unable to perform on this date . OT- Balance Assessment Sitting Balance and Reactions Static Sitting Balance Ability Fair M8 OT- IP Objective Assessments Start: 12/25/21 15:17 Freq: Status: Active Protocol: Document 01/17/22 10:00 [facility] (Rec: 01/17/22 14:35 [facility] [id number]) OT Gross Range of Motion Upper Extremity Range of Motion Assessment Left Impaired OT Strength Comments Strength Comments Pt had contracture with right hand , flexed at wrist,elbow, and internally rotated at his right shoulder. Pt has no functional movement in his left UE. OT-Muscle Tone Assessment Muscle Tone WNL No Comments Muscle Tone Comments Hypertonicity in LUE M9 OT- IP Assessment and Plan Start: 12/25/21 15:17 Freq: Status: Active Protocol: Document 01/20/22 13:35 [facility] (Rec: 01/20/22 13:52 [facility] [id number]) OT Summary Assessment and Plan Potential Rehabilitation Potential Fair Analytic Complexity at Evaluation High Summary OT Impairments Strength,Balance,Tone, Functional Mobility,Self- Feeding,Grooming,Dressing, Toileting,Bathing,Toilet Transfers,Shower Transfers, Activity Tolerance Progress Towards Goals Progressing Toward Goals Assessment Summary Pt performed all mobility with max x 2 and excellent effort. Pt performed 4 sit to stands (see above for further information). Pt may benefit from use of daksha walker with sit to stands for greater support. Pt will continue to benefit from theapy services. Recommend d/c to SNF. Goals Grooming Goal Standby Assistance Dressing Goal Minimal Assistance Toileting Goal Moderate Assistance Bathing Goal Moderate Assistance Toilet Transfer Goal Minimal Assistance Shower Transfer Goal Moderate Assistance Days to Meet Goals 45 Frequency of Treatment Frequency Of Treatment Once a Day Treatment Plan OT Treatment Plan ADL Training,Functional Cognition Training,Functional Mobility,Patient/Family Education,Discharge Planning Other Treatment Recommendations and Next Pt to be able to stand with Treatment Focus MAX A x3 for 30 seconds with SBQC to help improve standing balance in prep for LB dressing needs. Discharge Recommendations OT Discharge Recommendations SNF Rehab,[facility] Transportation Needs at Discharge Wheelchair/Cabulance
[2022-01-20] MEDS: ACETAMINOPHEN 325 MG TABLET 650 MG PO ×2 (12:29→18:28)
[2022-01-20] MEDS: ONDANSETRON 4 MG ODT SL (12:37)
--- NOTE | 2022-01-20 14:27 | CM.DPC ---
Addendum entered by REYNALDO Moss 01/20/22 15:56: ADD: SW completed Medicaid Transport the request form for transport Wed at 1000 with jael w/c and leg lifts and faxed to Medicaid to begin working on to determine if [facility] available to [place] on Wed. Otherwise will need to set up Medicaid BLS transport likely through [facility]. BF Addendum entered by REYNALDO Moss 01/20/22 15:07: ADD: Return call from [facility] at [facility] and provided pt's height and she confirms she can order an air/bariatric bed and provided pt's S.S.# and Dana confirms that they can accept pt for SNF rehab and request transport set up around 1000 for 01/22/22 to allow time for her to order a bed. They already have PASRR and COVID vax copy but will need signed med rec and any scripts that are schedule 3, d/c summary and likely an updated COVID swab. Their fax is [phone] and their address is [address] [place] [address]. ZACK updated PT, MD, printer operator and RN. Per PT, if pt had a bariatric w/c with leg rests to elevate he could likely hold himself upright for transport otherwise BLS transport under Medicaid to be set up tomorrow for Wed. ZACK met bedside with pt and updated on acceptance and he is agreeable and states he thinks he could transport via cabulance and aware plan is Wed around 1000. Greta Myers, REYNALDO Original Note: DCP Cont: Per Ortho MD, switched pt to oral pain meds and writing for nursing staff to get pt up twice a day and PT/OT to continue working with pt. Per PT/OT, pt has made some slight improvement and able to stand with 2PA for a few seconds at a time on ankle. ZACK placed these calls first thing in the morning: Christy Sr- [phone] HCS coordinator for [facility] for [facility] and left two msgs requesting call back with update. Jennifer Worthington: called multiple times with no answer and vm box full Dana Brand- [phone] who is admissions at [facility] and left msg then called back and she confirms she received the referral recently and will review it next. SW encouraged her to reach out with any questions or if she needs additional information. SW also reached out to these [place] SNFs in attempt for placement since pt has made small improvements and now weight baring as tolerated in case [facility] cannot accept: [facility]- left msg for admissions [facility]- [facility] msg for admissions [facility]- cannot accommodate any other bariatric pts and also currently full [facility]- left msg for admissions [facility]- left msg for admissions [facility]- left msg for admissions [facility]- willing to review and faxed request to [phone] [facility]- willing to review and faxed request to [phone] Plan: SW to follow closely for Dana at [facility] to review as well as [facility]. Greta Myers MSW
--- NOTE | 2022-01-20 16:12 | PM.PN.1 ---
Subjective Subjective Date Patient Seen: 01/20/22 Interval history: Patient is status post repair of a trimalleolar fracture.?Having a difficult time mobilizing. No new complaints. Acceptance obtained for transitional care unit in [place] on 01/22. Exam Vital Signs (past 8 hours): Oxygen Delivery Method Room Air Oxygen Flow Rate 0 Narrative Exam Narrative: Pleasant gentleman sitting in a chair in no obvious distress Resp Other: Lungs clear to auscultation Cardio Other: Cardiac exam: Regular rate rhythm normal S1-S2 GI Other: Abdomen soft and nontender Extrem Other: Extremities bilateral lymphedema with Gurpreet bandages in place Objective Labs Result Diagrams: 01/14/22 07:30 01/13/22 05:07 [facility] Medical History Asthma Chronic acquired lymphedema HTN (hypertension) Hyperlipidemia Morbid obesity with body mass index (BMI) of 40.0 to 49.9 Obstructive sleep apnea (04/03/20) Family History Family/Other Obesity Hypertension Diabetes mellitus Heart disease Dementia Social History household members: none Smoking Status: Never smoker additional social history: Had lived independently but failure to thrive and care deficits. Smoking 18 g of marijuana daily Assessment & Plan Assessment & Plan narrative: 1. Right ankle fracture, Patient has suffered a distal fibular fracture, and medial malleolar fracture which has been reduced and splinted Given his significant morbid obesity he will be unable to transfer given the fracture right ankle, ?he has remained inpatient due to difficult placement patient is status post repair of a trimalleolar fracture, no longer with uncontrolled pain continue Percocet, increase Percocet 10 mg prior to physical therapy. Discontinue IV medications. Continue physical therapy occupational therapy unable to be discharged home looking at different placement options though placement has been difficult. May have to discharge home if all options exhausted 2. Type 2 diabetes Insulin sliding scale inpatient Home glimeperide 4 mg daily on-board 3. Morbid obesity, class 3 This clearly had a significant impact on his morbidity, as his obesity likely is the cause of the right ankle fracture which is resulting in his inability to move and pivot at this point His obesity is his rate limiting factor for discharge either home or to group home 4. Hypertension Continue home carvedilol 25 mg bid lisinopril 5 mg daily was also started with improvement in BPs. 5. Obstructive sleep apnea Patient denies use of CPAP at home' 6. Sacral decubitus ulcer, stage III/IV Given his significant obesity, and inability to move this is problematic as he is at high risk for further skin breakdown 7. Elephantiasis, secondary to chronic lymphedema Chronic, continue his usual wound dressing 8. Intertrigo, likely Lanie, affecting many folds continue topical clotrimazole/betamethasone continue PO Diflucan 150 mg once weekly for 4 weeks (started December 25, 2021) 9.?Asthma, likely made worse by copious marijuana use Continue the albuterol inhaler, as needed, encouraged him to take breathing treatments as offered by respiratory therapy 10. Insomnia Continue home trazodone 50 mg daily Nightly Benadryl 50 mg, as needed, along with Benadryl 50 mg at midnight Dispo: Plan for discharge to transitional care unit in [place] on 01/22. Time Spent With Patient Critical Care time: I spent a total of [] minutes of critical care time on this patient's care today; this time is exclusive of procedural time.
--- NOTE | 2022-01-20 16:13 | PM.PNPO.1 ---
Subjective Subjective Date Patient Seen: 01/20/22 Time Patient Seen: 16:13 Interval history: Sitting in bed, pain well-controlled, states he has been able to bear weight on right foot. Plan is to discharge to SNF on 01/22/2022. Exam Vital Signs (past 8 hours): Oxygen Delivery Method Room Air Oxygen Flow Rate 0 Narrative Exam Narrative: Significant elephantitis/lymphedema. Able to wiggle toes on right, sensation to touch intact throughout leg and foot. Objective Labs Result Diagrams: 01/14/22 07:30 01/13/22 05:07 [facility] Medical History Asthma Chronic acquired lymphedema HTN (hypertension) Hyperlipidemia Morbid obesity with body mass index (BMI) of 40.0 to 49.9 Obstructive sleep apnea (04/03/20) Family History Family/Other Obesity Hypertension Diabetes mellitus Heart disease Dementia Social History household members: none Smoking Status: Never smoker additional social history: Had lived independently but failure to thrive and care deficits. Smoking 18 g of marijuana daily Assessment & Plan Post-op Postoperative Procedures: Procedures Operation Date: 01/13/22 07:45 Actual Procedure Side Surgeon p hindfoot arthrodesis nail ankle Right Marlin Martinez MD Postoperative day: 7 Postoperative status narrative: Pt on hospitalist service, plan is to d/c to SNF on 01/22/2022. F/u w/ Dr Martinez in 1-3 weeks for evaluation, possible suture removal. No showering or soaking incisions. Weight bearing as tolerated on right.
[2022-01-20 19:30] VITALS: O2SAT 94
[2022-01-20 20:30] VITALS: BP 127/61; PULSE 84; RESP 16; O2SAT 94
[2022-01-20] MEDS: TRAZODONE 50 MG TABLET PO (20:36)
[2022-01-20] MEDS: ATORVASTATIN 20 MG TABLET PO (20:37)
[2022-01-20] MEDS: SIMETHICONE 80 MG TABLET PO (20:49)
--- NOTE | 2022-01-20 21:03 | PC.NURSE ---
INSTRUMENT TECHNICIAN HELPER note: patient refused bathing.
[2022-01-21] MEDS: diphenhydrAMINE 25 MG TABLET 50 MG PO ×3 (01:44→23:34)
[2022-01-21] MEDS: OXYCODONE IR 5 MG TABLET 10 MG PO ×2 (01:46→23:35)
[2022-01-21] MEDS: PSYLLIUM HUSK 1 PACKET PO ×2 (08:40→17:08)
[2022-01-21] MEDS: carvediloL 12.5 MG TABLET 25 MG PO ×2 (08:41→20:45)
[2022-01-21] MEDS: ENOXAPARIN 40 MG/0.4 ML SYRINGE SUBCUT (08:41)
[2022-01-21] MEDS: GLIMEPIRIDE 2 MG TABLET 4 MG PO (08:42)
[2022-01-21] MEDS: lisinopriL 5 MG TABLET PO (08:42)
[2022-01-21] MEDS: PANTOPRAZOLE DR 20 MG TABLET PO (08:42)
[2022-01-21] MEDS: INSULIN LISPRO 100 UNIT/ML 3ML VIAL SUBCUT ×3 (08:48→17:10)
--- NOTE | 2022-01-21 09:20 | PT-IP ANOTE ---
Pt refusing therapy today. States he would like to rest prior to transferring to SNF.
--- NOTE | 2022-01-21 09:21 | OT.IPNOTE ---
Attempted to set-up a therapy time for the pt today. Pt states not wanting to do therapy today as going skilled rehab tomorrow.
--- NOTE | 2022-01-21 10:01 | PM.PNPO.1 ---
Subjective Subjective Date Patient Seen: 01/21/22 Time Patient Seen: 10:01 Interval history: Patient is complaining of mild right foot pain this morning. He is requesting for his cataracts ?to be fixed. ? I explained that it is an outpatient procedure, and he will need to follow-up once he is discharged. The plan is he will be discharged to SNF tomorrow. Exam Vital Signs (past 8 hours): Oxygen Delivery Method Room Air Oxygen Flow Rate 0 Narrative Exam Narrative: Significant elephantitis/lymphedema.? Able to wiggle toes on right, sensation to touch intact throughout leg and foot. Calves are soft and nontender palpation. Objective Labs Result Diagrams: 01/14/22 07:30 01/13/22 05:07 [facility] Medical History Asthma Chronic acquired lymphedema HTN (hypertension) Hyperlipidemia Morbid obesity with body mass index (BMI) of 40.0 to 49.9 Obstructive sleep apnea (04/03/20) Family History Family/Other Obesity Hypertension Diabetes mellitus Heart disease Dementia Social History household members: none Smoking Status: Never smoker additional social history: Had lived independently but failure to thrive and care deficits. Smoking 18 g of marijuana daily Assessment & Plan Post-op Postoperative Procedures: Procedures Operation Date: 01/13/22 07:45 Actual Procedure Side Surgeon p hindfoot arthrodesis nail ankle Right Marlin Martinez MD Postoperative day: 8 Postoperative plan narrative: Pt on hospitalist service, plan is to d/c to SNF on 01/22/2022. F/u w/ Dr Martinez in 1-3 weeks for evaluation, possible suture removal. No showering or soaking incisions. Weight bearing as tolerated on right.
[2022-01-21 10:15] VITALS: BP 122/53; PULSE 78; RESP 20; TEMP 36.2; O2SAT 95
[2022-01-21] MEDS: SODIUM CHLORIDE 0.9% FLUSH 10 ML IV (10:45)
[2022-01-21] MEDS: OXYCODONE IR 5 MG TABLET PO (10:46)
--- NOTE | 2022-01-21 10:46 | CM.DPNOTE ---
herbarium worker spoke with Kimberly at [employer]. [facility] will be able to transport patient to facility with help getting pt out of their van at the receiving facility. herbarium worker spoke with Dana at facility who confirmed they can assist with patient getting out of transport vehicle and provided front office number of [phone] for transporter to contact upon their arrival. herbarium worker provided this contact number to Kimberly who will give it to [facility]. [facility] arranged to pickle pumper patient at 10am 01/22. Jennifer [facility] case aide was informed of this plan. She does request update on 01/22 to ensure discharge was successful. [phone]. Oncoming case mgmt staff informed in handoff. No other discharge needs identified at this time. Assigned nurse notified of need for updated Covid test results. [facility] [place]
[2022-01-21] MEDS: ONDANSETRON 4 MG ODT SL (11:18)
--- NOTE | 2022-01-21 14:30 | PM.PN.1 ---
Subjective Subjective Date Patient Seen: 01/21/22 Time Patient Seen: 14:30 Interval history: Patient is status post repair of a trimalleolar fracture.?Having a difficult time mobilizing. Complains of right foot pain, wants cataracts fixed. Acceptance obtained for transitional care unit in [place] on 01/22. Exam Vital Signs (past 8 hours): - 01/21/22 10:15 Temperature 97.1 F L Pulse Rate 78 Respiratory Rate 20 Blood Pressure 122/53 L Pulse Oximetry 95 Oxygen Delivery Method Room Air Oxygen Flow Rate 0 Narrative Exam Narrative: Pleasant gentleman sitting in a chair in no obvious distress Resp Other: Lungs clear to auscultation Cardio Other: Cardiac exam: Regular rate rhythm normal S1-S2 GI Other: Abdomen soft and nontender Extrem Other: Extremities bilateral lymphedema with Gurpreet bandages in place Objective Labs Result Diagrams: 01/14/22 07:30 01/13/22 05:07 [facility] Medical History Asthma Chronic acquired lymphedema HTN (hypertension) Hyperlipidemia Morbid obesity with body mass index (BMI) of 40.0 to 49.9 Obstructive sleep apnea (04/03/20) Family History Family/Other Obesity Hypertension Diabetes mellitus Heart disease Dementia Social History household members: none Smoking Status: Never smoker additional social history: Had lived independently but failure to thrive and care deficits. Smoking 18 g of marijuana daily Assessment & Plan Assessment & Plan narrative: 1. Right ankle fracture, Patient has suffered a distal fibular fracture, and medial malleolar fracture which has been reduced and splinted Given his significant morbid obesity he will be unable to transfer given the fracture right ankle, ?he has remained inpatient due to difficult placement patient is status post repair of a trimalleolar fracture, no longer with uncontrolled pain continue Percocet, increase Percocet 10 mg prior to physical therapy. Discontinue IV medications. Continue physical therapy occupational therapy unable to be discharged home looking at different placement options though placement has been difficult. May have to discharge home if all options exhausted 2. Type 2 diabetes Insulin sliding scale inpatient Home glimeperide 4 mg daily on-board 3. Morbid obesity, class 3 This clearly had a significant impact on his morbidity, as his obesity likely is the cause of the right ankle fracture which is resulting in his inability to move and pivot at this point His obesity is his rate limiting factor for discharge either home or to correction 4. Hypertension Continue home carvedilol 25 mg bid lisinopril 5 mg daily was also started with improvement in BPs. 5. Obstructive sleep apnea Patient denies use of CPAP at home' 6. Sacral decubitus ulcer, stage III/IV Given his significant obesity, and inability to move this is problematic as he is at high risk for further skin breakdown 7. Elephantiasis, secondary to chronic lymphedema Chronic, continue his usual wound dressing 8. Intertrigo, likely Lanie, affecting many folds continue topical clotrimazole/betamethasone continue PO Diflucan 150 mg once weekly for 4 weeks (started December 25, 2021) 9.?Asthma, likely made worse by copious marijuana use Continue the albuterol inhaler, as needed, encouraged him to take breathing treatments as offered by respiratory therapy 10. Insomnia Continue home trazodone 50 mg daily Nightly Benadryl 50 mg, as needed, along with Benadryl 50 mg at midnight Dispo: Plan for discharge to transitional care unit in [place] on 01/22. Time Spent With Patient Critical Care time: I spent a total of [] minutes of critical care time on this patient's care today; this time is exclusive of procedural time.
--- NOTE | 2022-01-21 14:50 | PC.NURSE ---
Dressings changed to BLEs. Right lower extremity surgical sites x3 sutures were intact and well approximated with no erythema, warmth, or swelling. There was a moderate amount of dried sanguineous drainage to the removed dressings. Wounds were cleansed gently with saline and same dressings of xeroform and allevyn were applied. This was all covered with webril and solitario. Left lower extremity was washed with cleanser and water, dried, and dressed with webril and coban, not too tight, same as before. Patient tolerated all cares well, no complaints of pain.
[2022-01-21 16:12] LABS: COVID19 -Nasal RAPID Negative (Negative)
[2022-01-21] MEDS: ACETAMINOPHEN 325 MG TABLET 650 MG PO ×2 (17:08→23:34)
[2022-01-21 19:40] VITALS: O2SAT 97
[2022-01-21 20:00] VITALS: BP 124/56; PULSE 80; RESP 16; TEMP 36.4; O2SAT 97
[2022-01-21 20:45] VITALS: BP 124/56; PULSE 80
[2022-01-21] MEDS: TRAZODONE 50 MG TABLET PO (20:45)
[2022-01-21] MEDS: ATORVASTATIN 20 MG TABLET PO (20:45)
[2022-01-22] MEDS: BISACODYL 10 MG SUPP PR (00:02)
[2022-01-22 07:00] VITALS: BP 142/70; PULSE 74; RESP 18; TEMP 36.5; O2SAT 96
--- NOTE | 2022-01-22 08:06 | CM.DPC ---
Addendum entered by Vanna Pugh R.N. 01/22/22 10:22: [facility] came by to pick pulling machine operator patient. Gave them the phone number for [facility] to check in when patient arrives in the parking lot so they can get assistance with patient. Patient has now left. Dr. Cárdenas will complete DC Summary, and then, will fax to [facility]. Updated sister, Irma, who lives in [place]. Original Note: DCP Cont: [facility]. Had Dr. Cárdenas complete med orders, Katie will fax over to [facility], as well as yesterday's COVID results, and Katie will fax DC Summary. [facility] has already been faxed. White board is updated for pick pulling machine operator at 0930 with Charleen Wild. Nurse, Dennys, is also aware. P: [facility] is discharging to [facility] with pick pulling machine operator at 0930. Vanna Pugh RN/Java Developer Architect
[2022-01-22 08:26] VITALS: BP 142/70; PULSE 75
[2022-01-22] MEDS: PSYLLIUM HUSK 1 PACKET PO (08:26)
[2022-01-22] MEDS: lisinopriL 5 MG TABLET PO (08:26)
[2022-01-22 08:27] VITALS: BP 142/72; PULSE 75
[2022-01-22] MEDS: carvediloL 12.5 MG TABLET 25 MG PO (08:27)
[2022-01-22] MEDS: OXYCODONE IR 5 MG TABLET 10 MG PO (08:27)
[2022-01-22] MEDS: PANTOPRAZOLE DR 20 MG TABLET PO (08:27)
[2022-01-22] MEDS: GLIMEPIRIDE 2 MG TABLET 4 MG PO (08:27)
--- NOTE | 2022-01-22 11:45 | P.PN_ITS ---
Subjective Subjective Interval history: The patient reports feeling well this morning. Denies any acute complaints. Exam Vital Signs (past 8 hours): - 01/22/22 07:00 01/22/22 08:26 01/22/22 08:27 Temperature 97.7 F Pulse Rate 74 75 75 Respiratory Rate 18 Blood Pressure 142/70 H 142/70 H 142/72 H Pulse Oximetry 96 Oxygen Delivery Method Room Air Oxygen Flow Rate 0 Narrative Exam Narrative: Const Other: Patient is laying in bed comfortably upon my entering the room, watching TV, and does not appear in acute distress, large body habitus noted HENMT Other: Bluish discoloration of lips noted Eyes Other: No scleral icterus appreciated Neck Other: Wide circumference neck noted Resp Other: Decreased breath sounds bilaterally without adventitous breath sounds noted Cardio Other: RRR, S1 and S2 heart sounds normal, no extra heart sounds or murmurs appreciated GI Other: Soft, non-distended, non-tender, bowel sounds present Extrem Other: Bilateral lymphedema noted, with overlying skin changes consistent with chronic lymphedema, palpable dorsalis pedis pulses bilaterally, with RLE dressing in place Objective Labs Result Diagrams: 01/14/22 07:30 01/13/22 05:07 Labs: Laboratory Results - last 24 hr 01/21/22 15:39 SARS-CoV-2 (PCR) Negative COUNTS INCLUDE 234 BEDS AT [facility] Medical History Asthma Chronic acquired lymphedema HTN (hypertension) Hyperlipidemia Morbid obesity with body mass index (BMI) of 40.0 to 49.9 Obstructive sleep apnea (04/03/20) Family History Family/Other Obesity Hypertension Diabetes mellitus Heart disease Dementia Social History household members: none Smoking Status: Never smoker additional social history: Had lived independently but failure to thrive and care deficits. Smoking 18 g of marijuana daily Assessment & Plan Assessment & Plan narrative: 1. Right ankle fracture Patient initially suffered a distal fibular fracture, and medial malleolar fracture which has been reduced and splinted Given his significant morbid obesity he will be unable to transfer given the fracture right ankle patient is status post orthopedic repair of a trimalleolar fracture on January 13 2. Type II diabetes mellitus Insulin sliding scale inpatient Home glimeperide 4 mg daily on-board 3. Morbid obesity, class 3 This clearly had a significant impact on his morbidity, as his obesity likely is the cause of the right ankle fracture which is resulting in his inability to move and pivot at this point His obesity is his rate limiting factor for discharge either home or to assisted 4. Hypertension Continue home carvedilol 25 mg bid lisinopril 5 mg daily was also started with improvement in BPs. 5. Obstructive sleep apnea Patient denies use of CPAP at home' 6. Sacral decubitus ulcer, stage III/IV Given his significant obesity, and inability to move this is problematic as he is at high risk for further skin breakdown 7. Elephantiasis, secondary to chronic lymphedema Chronic, continue his usual wound dressing 8. Intertrigo, likely Lanie, affecting many folds continue topical clotrimazole/betamethasone continue PO Diflucan 150 mg once weekly for 4 weeks (started December 25, 2021) 9.?Asthma, likely made worse by copious marijuana use Continue the albuterol inhaler, as needed, encouraged him to take breathing treatments as offered by respiratory therapy 10. Insomnia Continue home trazodone 50 mg daily Nightly Benadryl 50 mg, as needed, along with Benadryl 50 mg at midnight Code: Full Code I have utilized all available immediate resources to obtain, update, or review the patient's current medications. Time Spent With Patient Critical Care time: I spent a total of [] minutes of critical care time on this patient's care today; this time is exclusive of procedural time. Quality MIPS - Admit I confirm the patient?s Advance Care Plan is present, Code status is documented, Surrogate decision maker is in patient?s record [If Yes, STOP here]: Yes
--- NOTE | 2022-01-22 11:50 | P.DS_ITS ---
History of Present Illness History of Present Illness Chief complaint: ankle injury Narrative: The patient is a 61-year-old male with a history of morbid obesity, elephantiasis, type 2 diabetes, hypertension, hyperlipidemia, reactive airway disease, obstructive sleep apnea, who had a stroke in 1998 resulting in left hemiparesis.? He has left-sided contractures and no use of the left arm.? Patient reports he can pivot, but is mostly wheelchair bound.? He was transferring from his recliner to the wheelchair when he lost his balance and fell.? He landed on his right leg and suffered a right ankle fracture/dis location.? The patient also has chronic lymphedema and has his left lower leg wrapped which is changed every 3 days.? He reports he is chronically short of breath, he admits to smoking 18 g of marijuana daily, he does not drink any alcohol or smoke any other substances.? He has some chronic diarrhea, minimal diarrhea yesterday.? He has no fever chills.? He has bilateral cataracts and blurring of his vision.? He denies any chest pain, no nausea, no vomiting.? No dysuria hematuria or pyuria.? His right ankle pain has improved since admission to the hospital.? The patient lives at home independently.? He is unable to care for himself and will need placement given his recent ankle fracture/dislocation. Written by admitting provider. Discharge Providers Provider Date of admission: 12/28/21 09:55 Discharge Date: 01/22/22 Primary care physician: Rayray Laird MD Consults: 12/25/21 06:17 Consult to Discharge Planning Routine Comment: Consult to Occupational Therapy Evaluate & Treat Comment: Physician Instructions: Evaluate and treat Consult to Physical Therapy Evaluate & Treat Comment: Physician Instructions: Evaluate and Treat 12/25/21 12:18 Consult to Dietitian, Adult Routine Comment: Reason For Exam: Weight management and skin issues, diabetes 12/25/21 13:30 Consult to Orthopedic Surgery Routine Comment: Consulting Provider: Anjali Cárdenas Reason for consultation: To give formal weight-bearing status for right ankle fracture Has provider been notified: Yes 12/30/21 17:27 Consult to Dietitian, Adult Routine Comment: Reason For Exam: skin breakdown 01/05/22 16:24 Consult to Dietitian, Adult Routine Comment: Reason For Exam: immobile, wounds to heal 01/13/22 11:41 Consult to Discharge Planning Routine Comment: Consult to Physical Therapy Evaluate & Treat Comment: wbat / transfers etc on operative leg in soft dsg Physician Instructions: Evaluate and Treat Consult to Respiratory Therapy Evaluate & Treat Comment: Physician Instructions: Evaluate and treat 01/16/22 12:02 Consult to Occupational Therapy Evaluate & Treat Comment: Physician Instructions: Evaluate and treat 01/19/22 11:48 Consult to Physical Therapy Evaluate & Treat Comment: Pls add upper body strength training/cardio Physician Instructions: Evaluate and Treat Discharge provider: Anjali Cárdenas MD Summary Hospital Course Discharge Diagnosis: 1. Right ankle fracture Patient initially suffered a distal fibular fracture, and medial malleolar fracture which has been reduced and splinted Given his significant morbid obesity he will be unable to transfer given the fracture right ankle patient is status post orthopedic repair of a trimalleolar fracture on January 13 2. Type II diabetes mellitus Insulin sliding scale inpatient Home glimeperide 4 mg daily on-board 3. Morbid obesity, class 3 This clearly had a significant impact on his morbidity, as his obesity likely is the cause of the right ankle fracture which is resulting in his inability to move and pivot at this point 4. Hypertension Continue home carvedilol 25 mg bid 5. Obstructive sleep apnea Patient denies use of CPAP at home 6. Sacral decubitus ulcer, stage III/IV Given his significant obesity, and inability to move this is problematic as he is at high risk for further skin breakdown 7. Elephantiasis, secondary to chronic lymphedema Chronic, continue his usual wound dressing 8. Intertrigo, likely Lanie, affecting many folds Continue topical clotrimazole/betamethasone Completed 4 weeks of once-weekly Diflucan inpatient 9. Asthma, likely made worse by copious marijuana use Continue the albuterol inhaler, as needed, encouraged him to take breathing treatments as offered by respiratory therapy 10. Insomnia Continue home trazodone 50 mg daily Nightly Benadryl 50 mg, as needed, along with Benadryl 50 mg at midnight Exam Vital Signs (past 8 hours): - 01/22/22 07:00 01/22/22 08:26 01/22/22 08:27 Temperature 97.7 F Pulse Rate 74 75 75 Respiratory Rate 18 Blood Pressure 142/70 H 142/70 H 142/72 H Pulse Oximetry 96 Oxygen Delivery Method Room Air Oxygen Flow Rate 0 Objective Labs Result Diagrams: 01/14/22 07:30 01/13/22 05:07 Labs: Laboratory Results - last 24 hr 01/21/22 15:39 SARS-CoV-2 (PCR) Negative [facility] Medical History Asthma Chronic acquired lymphedema HTN (hypertension) Hyperlipidemia Morbid obesity with body mass index (BMI) of 40.0 to 49.9 Obstructive sleep apnea (04/03/20) Family History Family/Other Obesity Hypertension Diabetes mellitus Heart disease Dementia Social History household members: none Smoking Status: Never smoker additional social history: Had lived independently but failure to thrive and care deficits. Smoking 18 g of marijuana daily Discharge Assessment & Plan Assessment and Plan Assessment: 1. Right ankle fracture Patient initially suffered a distal fibular fracture, and medial malleolar fracture which has been reduced and splinted Given his significant morbid obesity he will be unable to transfer given the fracture right ankle patient is status post orthopedic repair of a trimalleolar fracture on January 13 2. Type II diabetes mellitus Insulin sliding scale inpatient Home glimeperide 4 mg daily on-board 3. Morbid obesity, class 3 This clearly had a significant impact on his morbidity, as his obesity likely is the cause of the right ankle fracture which is resulting in his inability to move and pivot at this point 4. Hypertension Continue home carvedilol 25 mg bid 5. Obstructive sleep apnea Patient denies use of CPAP at home 6. Sacral decubitus ulcer, stage III/IV Given his significant obesity, and inability to move this is problematic as he is at high risk for further skin breakdown 7. Elephantiasis, secondary to chronic lymphedema Chronic, continue his usual wound dressing 8. Intertrigo, likely Lanie, affecting many folds Continue topical clotrimazole/betamethasone Completed 4 weeks of once-weekly Diflucan inpatient 9. Asthma, likely made worse by copious marijuana use Continue the albuterol inhaler, as needed, encouraged him to take breathing treatments as offered by respiratory therapy 10. Insomnia Continue home trazodone 50 mg daily Nightly Benadryl 50 mg, as needed, along with Benadryl 50 mg at midnight Discharge Plan Discharge Plan Patient Disposition: SNF Discharge orders & Medications Prescriptions: New diphenhydramine HCl [Allergy (diphenhydramine)] 25 mg Tablet 50 mg PO BEDTIME Qty: 30 0RF docusate sodium 100 mg Capsule 200 mg PO DAILY Qty: 30 0RF oxycodone 5 mg Tablet 5 mg PO Q4HR PRN (Reason: Pain, Moderate (4-6)) 2 Days Qty: 12 0RF Continued albuterol sulfate 90 mcg/actuation HFA aerosol inhaler 1 puff Inhalation PRN PRN (Reason: Shortness Of Breath) 0RF atorvastatin 20 mg tablet 20 mg PO BEDTIME 0RF Label Comments: take 1 tablet by mouth at bedtime carvedilol 12.5 mg tablet 12.5 mg PO BID 0RF Label Comments: take 1 tablet by mouth twice a day for CARDIOMYOPATHY trazodone 50 mg tablet 50 mg PO QPM 0RF Label Comments: takes 1 tablet at 6 pm daily nystatin 100,000 unit/gram ointment See Rx Instructions .ROUTE .COMPLEX 0RF Rx Instructions: apply to skin fold areas bid glimepiride 2 mg tablet 2 mg PO DAILY 0RF Label Comments: take 1 tablet by mouth once daily for diabetes levothyroxine 25 mcg tablet 25 mcg PO DAILY 0RF Label Comments: take 1 tablet by mouth once daily as directed 20 MINUTES before MEALS hydrocortisone [Procto-Med HC] 2.5 % cream with perineal applicator See Rx Instructions .ROUTE .COMPLEX 0RF Rx Instructions: apply to rectum prn omeprazole 20 mg capsule,delayed release(DR/EC) 20 mg PO DAILY 0RF Discontinued triamcinolone acetonide 0.1 % ointment 1 applic topical PRN PRN (Reason: DIRECTED) 0RF Label Comments: Apply to lower abdomen and groin BID x two weeks, then PRN.Apply ...(REFER TO PRESCRIPTION NOTES). diphenhydramine HCl 25 mg 100 mg PO BID 0RF Label Comments: takes 50 mg at 6 pm and midnight for sleep Follow up/Referrals: Marlin Martinez MD [Physician] - 2 Weeks (Follow up with Dr Martinez in 1-3 weeks.) Rayray Laird MD [Primary Care Provider] - Skin/Wound/Dressing Care Dressing: Change or reinforce as needed. No showering or soaking incisions. [facility] Restrictions to mobility: Weight bearing as tolerated to right foot with soft dressing. Discharge Data Primary Care Provider: Rayray Laird
== END 2022-01-22 09:30 | DRG 981 ==
LOC: ED 05:15 → AC 08:28
PROVIDERS: Internal Medicine; Orthopaedic Surgery Foot and Ankle Surgery; Student in an Organized Health Care Education/Training Program; Admitting Provider Internal Medicine; Emergency Provider Emergency Medicine; Family Provider Family Medicine; PCP Family Medicine; Referring Provider Emergency Medicine; Visit Provider Internal Medicine
PROC: 0SGF04Z Fusion of Right Ankle Joint with Internal Fixation Device, Open Approach (ICD-10-PCS; CPT 27759; principal; 2022-01-13 07:45)
DX: L03.312 Cellulitis of back [any part except buttock and flank] (principal); L89.153 Pressure ulcer of sacral region, stage 3; Z68.43 Body mass index [BMI] 50.0-59.9, adult; G81.94 Hemiplegia, unspecified affecting left nondominant side; S82.831A Other fracture of upper and lower end of right fibula, initial encounter for closed fracture; S82.51XA Displaced fracture of medial malleolus of right tibia, initial encounter for closed fracture; E66.01 Morbid (severe) obesity due to excess calories; I89.0 Lymphedema, not elsewhere classified; B37.2 Candidiasis of skin and nail; J45.909 Unspecified asthma, uncomplicated; G47.33 Obstructive sleep apnea (adult) (pediatric); E11.9 Type 2 diabetes mellitus without complications; I10 Essential (primary) hypertension; G47.00 Insomnia, unspecified; K59.00 Constipation, unspecified; F12.90 Cannabis use, unspecified, uncomplicated; R14.3 Flatulence; E78.5 Hyperlipidemia, unspecified; W18.30XA Fall on same level, unspecified, initial encounter; Z79.84 Long term (current) use of oral hypoglycemic drugs; Z86.73 Personal history of transient ischemic attack (TIA), and cerebral infarction without residual deficits; Z71.3 Dietary counseling and surveillance; Z23 Encounter for immunization
CPT/HCPCS: 27762; 27788; 36415; 36592; 73600; 73610; 76000; 80048; 80053; 82550; 82962; 83036; 83735; 84443; 85025; 85027; 87635; 90471; 90656; 93005; 94640; 94760; 94762; 97110; 97129; 97162; 97167; 97530; 97535; 99152; 99153; 99285; C9803; G0378; A9270; J0171; J0690; J0878; J1642; J1650; J1815; J2405; J2704; J2765; J3010; J7613; Q2038